=== PATIENT | female | born 1950 | race American Indian/Alaskan Native ===

== ENCOUNTER 2020-12-11 13:53 | Observation (INO) | payer MEDICARE ==
--- NOTE | 2020-12-11 14:42 | Emergency Department Report ---
HPI - General Chief Complaint: Weakness Time Seen by Provider: 12/11/20 14:18 - HPI HPI: Room 18 The patient is a 70-year-old female present with a chief complaint of missed hemodialysis. The patient has history end-stage renal disease and normally has dialysis every Wednesday. Patient states she has not gone to dialysis for 5 days. When asked why the patient does not answer. The patient complains of bilateral lower extremity pain for the past week but denies history of trauma. Patient admits to shortness of breath which began today. Patient states she was sent to the ED today to receive hemodialysis ED Past Medical Hx - Past Medical History Hx Hypertension: Yes Hx Diabetes: Yes Hx Renal Disease: Yes (ESRD, HD Q MWF) - Surgical History Hx Open Heart Surgery: Yes (CABG) Additional Surgical History: Nephrectomy. Left upper extremity fistula - Family History Family history: no significant - Social History Smoking Status: Never Smoker Substance Use Type: None ED Review of Systems ROS: Stated complaint: WEAKNESS Other details as noted in HPI Constitutional: weakness Eyes: denies: eye pain ENT: denies: throat pain Respiratory: shortness of breath Cardiovascular: denies: chest pain Endocrine: no symptoms reported Gastrointestinal: denies: abdominal pain Genitourinary: denies: abnormal menses Musculoskeletal: myalgia Neurological: denies: headache Physical Exam - Physical Exam Vital Signs: Vital Signs 12/11/20 14:09 Temperature 97.9 F Pulse Rate 76 Respiratory 14 Rate Blood Pressure 96/53 [Right] O2 Sat by Pulse 98 Oximetry Physical Exam: GENERAL: The patient is well-developed well-nourished female lying on stretcher not appearing to be in acute distress. [] HEENT: Normocephalic. Atraumatic. Extraocular motions are intact. Patient has moist mucous membranes. NECK: Supple. Trachea midline CHEST/LUNGS: Clear to auscultation. There is no respiratory distress noted. HEART/CARDIOVASCULAR: Regular. There is no tachycardia. There is no gallop rub or murmur. ABDOMEN: Abdomen is soft, nontender. Patient has normal bowel sounds. There is no abdominal distention. SKIN: There is no rash. There is trace bilateral lower extremity edema. There is no diaphoresis. NEURO: The patient is awake and oriented but at times appears slow to respond or does not answer questions. The patient is cooperative. The patient has no focal neurologic deficits. The patient has normal speech MUSCULOSKELETAL: \ There is no evidence of acute injury. ED Course Vital Signs 12/11/20 14:09 Temperature 97.9 F Pulse Rate 76 Respiratory 14 Rate Blood Pressure 96/53 [Right] O2 Sat by Pulse 98 Oximetry - Consultations Consultation #1: 12/11/20 16:54 Nephrology paged 12/11/20 17:[address] Turner-will enter dialysis orders ED Medical Decision Making - Lab Data Result diagrams: 12/11/20 15:42 12/11/20 15:42 Laboratory Tests 12/11/20 12/11/20 12/11/20 15:42 15:42 15:42 WBC 13.0 H RBC 2.68 L Hgb 8.3 L Hct 26.7 L MCV 100 H MCH 31 MCHC 31 RDW 23.0 H Plt Count 229 Lymph % (Auto) 10.0 L Wolfe % (Auto) 9.4 H Eos % (Auto) 1.1 Baso % (Auto) 1.0 Lymph # (Auto) 1.3 Wolfe # (Auto) 1.2 H Eos # (Auto) 0.1 Baso # (Auto) 0.1 Seg Neutrophils % 78.5 H Seg Neutrophils # 10.2 H Sodium 134 L Potassium 6.5 H* Chloride 95.5 L Carbon Dioxide 21 L Anion Gap 24 BUN 73 H Creatinine 8.7 H Estimated GFR 5 BUN/Creatinine Ratio 8 Glucose 155 H Calcium 8.6 TSH 5.190 H Free T4 1.07 - EKG Data -: EKG Interpreted by Me EKG shows normal: sinus rhythm - EKG Data When compared to previous EKG there are: previous EKG unavailable Interpretation: nonspecific ST-T wave gladys - Radiology Data Radiology results: report reviewed (Chest x-ray, bilateral lower extremity Dopplers), image reviewed (Chest x-ray, bilateral lower extremity Dopplers) interpreted by me: Chest x-ray-no focal infiltrates, no pneumothorax. [facility] [address] [place] [address] Vascular Lab Report Signed Patient: MARII MARQUEZ MR#: [id number] 6 : 1950 Acct:[id number] Age/Sex: 70 / F ADM Date: 12/11/20 Loc: ED Attending Dr: Ordering Physician: BIJU PEREIRA MD Date of Service: 12/11/20 Procedure(s): VL venous duplex LE BILAT Accession Number(s): [id number] cc: BIJU PEREIRA MD DUPLEX DOPPLER LOWER EXTREMITY VEINS, BILATERAL INDICATION: Pain. TECHNIQUE: Duplex doppler imaging was performed through the veins of both lower extremities using venous compression and other maneuvers. COMPARISON: No relevant prior imaging study available. FINDINGS: Right Common femoral vein: Negative. Right Superficial femoral vein: Negative. Right Popliteal vein: Negative. Right Calf veins: Negative. Left Common femoral vein: Negative. Left Superficial femoral vein: Negative. Left Popliteal vein: Negative. Left Calf veins: Negative. Additional findings: None. IMPRESSION: No sonographic evidence for DVT in either lower extremity. Signer Name: Heath Raymundo Jr, MD Signed: 12/11/2020 3:26 PM Workstation Name: [id number] Transcribed By: TTR Dictated By: HEATH RAYMUNDO JR, MD Electronically Authenticated By: HEATH RAYMUNDO JR, MD Signed Date/Time: 12/11/20 1526 DD/ 1525 TD/TT: Print Cancel [facility] [address] [place] [address] XRay Report Signed Patient: MARII MARQUEZ MR#: [id number] 6 : 1950 Acct:[id number] Age/Sex: 70 / F ADM Date: 12/11/20 Loc: ED Attending Dr: Ordering Physician: BIJU PEREIRA MD Date of Service: 12/11/20 Procedure(s): XR chest 1V ap Accession Number(s): [id number] cc: BIJU PEREIRA MD Fluoro Time In Minutes: CHEST 1 VIEW 12/11/2020 1:49 PM INDICATION / CLINICAL INFORMATION: Shortness of breath. COMPARISON: None available. FINDINGS: SUPPORT DEVICES: Left IJ central venous catheter appears appropriately positioned. HEART / MEDIASTINUM: Mild cardiomegaly. LUNGS / PLEURA: No significant pulmonary or pleural abnormality. No pneumothorax. ADDITIONAL FINDINGS: No significant additional findings. IMPRESSION: 1. Mild cardiomegaly without acute pulmonary abnormality. Signer Name: Beto Caballero MD Signed: 12/11/2020 2:51 PM Workstation Name: [id number] Transcribed By: JENIFER Dictated By: Beto Caballero MD Electr onically Authenticated By: Beto Caballero MD Signed Date/Time: 12/11/201450 DD/ 49 TD/TT: Print Cancel - Differential Diagnosis Hyperkalemia, uremia, volume overload, symptomatic anemia Critical care attestation.: If time is entered above; I have spent that time in minutes in the direct care of this critically ill patient, excluding procedure time. ED Disposition Clinical Impression: Hyperkalemia, ESRD (end stage renal disease) Disposition: OP ADMIT IP TO THIS HOSP Is pt being admited?: Yes Does the pt Need Aspirin: No Condition: Fair Time of Disposition: 17:25 (Hospitalist notified (Dr. Gonzalez))
--- NOTE | 2020-12-11 14:55 | XRay Report ---
CHEST 1 VIEW 12/11/2020 1:49 PM INDICATION / CLINICAL INFORMATION: Shortness of breath. COMPARISON: None available. FINDINGS: SUPPORT DEVICES: Left IJ central venous catheter appears appropriately positioned. HEART / MEDIASTINUM: Mild cardiomegaly. LUNGS / PLEURA: No significant pulmonary or pleural abnormality. No pneumothorax. ADDITIONAL FINDINGS: No significant additional findings. IMPRESSION: 1. Mild cardiomegaly without acute pulmonary abnormality. Signer Name: Beto Caballero MD Signed: 12/11/2020 2:51 PM Workstation Name: [id number]
--- NOTE | 2020-12-11 15:30 | Vascular Lab Report ---
DUPLEX DOPPLER LOWER EXTREMITY VEINS, BILATERAL INDICATION: Pain. TECHNIQUE: Duplex doppler imaging was performed through the veins of both lower extremities using ve nous compression and other maneuvers. COMPARISON: No relevant prior imaging study available. FINDINGS: Right Common femoral vein: Negative. Right Superficial femoral vein: Negative. Right Popliteal vein: Negative. Right Calf veins: Negative. Left Common femoral vein: Negative. Left Superficial femoral vein: Negative. Left Popliteal vein: Negative. Left Calf veins: Negative. Additional findings: None. IMPRESSION: No sonographic evidence for DVT in either lower extremity. Signer Name: Heath Raymundo Jr, MD Signed: 12/11/2020 3:26 PM Workstation Name: [id number]
[2020-12-11 16:14] LABS: Basophils # (Auto) 0.1 K/mm3 (0.0-0.1); Eosinophils # (Auto) 0.1 K/mm3 (0.0-0.4); Eosinophils % (Auto) 1.1 % (0.0-4.3); Hematocrit 26.7 % (30.3-42.9); Hemoglobin 8.3 gm/dl (10.1-14.3); Lymphocytes # (Auto) 1.3 K/mm3 (1.2-5.4); Mean Corpuscular HGB Conc 31 % (30-34); Mean Corpuscular Volume 100 fl (79-97); Monocytes # (Auto) 1.2 K/mm3 (0.0-0.8); Monocytes % (Auto) 9.4 % (0.0-7.3); Platelet Count 229 K/mm3 (140-440); Red Blood Count 2.68 M/mm3 (3.65-5.03)
[2020-12-11 16:21] LABS: Calcium 8.6 mg/dL (8.4-10.2)
[2020-12-11 16:35] LABS: Free T4 (Free Thyroxine) 1.07 ng/dL (0.76-1.46)
[2020-12-11] MEDS ORDERED: EPOETIN ALFA-EPBX 20,000 UNIT/1 ML VIAL SUB-Q PRN (17:42)
[2020-12-11] MEDS ORDERED: HEPARIN 10,000 UNITS/10 ML VIAL IV PRN (17:42)
[2020-12-11] MEDS ORDERED: CALCIUM GLUCONATE 1,000 MG in SODIUM CHLORIDE 0.9% 100 ML IV ONE (17:48)
[2020-12-11] MEDS ORDERED: DEXTROSE 50% IN WATER (25GM) 50 ML SYRINGE IV ONE (17:48)
[2020-12-11] MEDS ORDERED: INSULIN REGULAR, HUMAN 100 UNITS/1 ML IV ONE (17:48)
[2020-12-11] MEDS ORDERED: SODIUM BICARB 8.4% 50 MEQ/50 ML SYRINGE IV ONE (17:48)
[2020-12-11] MEDS ORDERED: SODIUM CHLORIDE 0.9% 100 ML IV PRN (18:42)
[2020-12-11 20:39] LABS: Hepatitis B Surface Antigen Non-Reactive (Negative); Hepatitis C Virus Antibody Non-Reactive (NonReactive)
--- NOTE | 2020-12-11 20:55 | Event Note ---
Date: 12/11/20 Patient with presented with missed HD and hyperkalemia. Need emergent/urgent hemodialysis due to above and I did d/w ER physician.
--- NOTE | 2020-12-11 21:24 | History and Physical Report ---
History of Present Illness Date of examination: 12/11/20 Date of admission: 12/11/20 17:22 Chief complaint: Generalized weakness History of present illness: 70-year-old female with a history of hypertension end-stage renal disease missed dialysis for the past 5 days. Patient complained of shortness of breath generalized malaise over the past 2 days. Patient presents to the ED needing hemodialysis. For acute renal failure. Work-up patient found to have hyperk alemia as well as BUN of 73 and creatinine of 8. Patient somewhat poor historian otherwise no acute distress. Patient denies pain. No shortness no nausea vomiting no abdominal pain only shortness of breath. Past History Past Medical History: anemia, arthritis, dialysis, hypertension, renal failure. denies: acute TN, atrial fib, arrhythmia, CAD, cancer, COPD, diabetes, heart failure, HIV/AIDS, hyperlipidemia, hypothyroidism, migraines, pulmonary embolis m, seizures Past Surgical History: CABG, Other (Nephrectomy) Social history: single, lives with family, full code. denies: smoking, alcohol abuse, prescription drug abuse Family history: no significant family history Medications and Allergies Allergies Allergy/AdvReac Type Severity Reaction Status Date / Time No Known Allergies Allergy Verified 12/11/20 17:11 Active Meds: Active Medications Heparin Sodium (Porcine) (Heparin 10,000 Units/10 Ml Vial) 3,000 unit IV ROSA M PRN PRN Reason: hemodialysis Sodium Chloride (Nacl 0.9%) 100 mls @ 999 mls/hr IV ROSA M PRN PRN Reason: Hypotension Review of Systems Constitutional: fatigue, weakness, malaise, poor appetite, no weight loss, no weight gain, no fever, no chills, no sweats, no anorexia, no lethargy, no chronic headaches, no daytime sleepiness, no chronic pain Ears, nose, mouth and throat: no ear discharge, no nasal congestion, no nasal discharge, no mouth pain, no hoarseness, no swelling in mouth, no post-nasal drip Cardiovascular: shortness of breath, dyspnea on exertion, decreased exercise t olerance, no chest pain, no orthopnea, no palpitations, no rapid/irregular heart beat, no edema, no syncope, no paroxysmal nocturnal dyspnea, no claudication, no high blood pressure Respiratory: cough, shortness of breath, dyspnea on exertion, no cough with sputum, no wheezing, no pain, no snoring, no other Gastrointestinal: no nausea, no diarrhea, no hematemesis, no melena, no early satiety, no heartburn, no jaundice, no lactose intolerance Musculoskeletal: muscle weakness, no neck pain, no arm numbness/tingling, no low back pain, no hot joints, no muscle cramps, no atrophy, no fractures, no prior amputations Integumentary: no pruritis, no darkening of skin, no dryness Neurological: weakness, no transient paralysis, no numbness, no migraines, no convulsions, no change in mentation, no loss of vision, no hearing difficulties Endocrine: no heat intolerance, no nocturia, no proptosis, no thyroid mass, no high blood sugars, no recent glucocorticoid use Hematologic/Lymphatic: no lymphedema Allergic/Immunologic: no anaphylaxis Exam - Constitutional Vitals: Temp Pulse Resp BP Pulse Ox 97.9 F 73 17 126/39 100 12/11/20 14:09 12/11/20 17:01 12/11/20 15:31 12/11/20 17:01 12/11/20 17:01 General appearance: Present: no acute distress, well-nourished - EENT Eyes: Present: PERRL ENT: hearing intact, clear oral mucosa - Neck Neck: Present: supple, normal ROM - Respiratory Respiratory effort: normal Respiratory: bilateral: CTA - Cardiovascular Heart Sounds: Present: S1 & S2. Absent: rub, click - Extremities Extremities: pulses symmetrical, No edema Peripheral Pulses: within normal limits - Abdominal General gastrointestinal: Present: soft, non-tender, non-distended, normal bowel sounds Female genitourinary: Present: normal - Integumentary Integumentary: Present: clear, warm, dry - Musculoskeletal Musculoskeletal: gait normal, strength equal bilaterally - Psychiatric Psychiatric: appropriate mood/affect, intact judgment & insight - Neurologic Neurologic: CNII-XII intact, moves all extremities Results - Labs CBC & Chem 7: 12/11/20 15:42 12/11/20 15:42 Labs: Laboratory Last Values WBC 13.0 K/mm3 (4.5-11.0) H 12/11/20 15:42 RBC 2.68 M/mm3 (3.65-5.03) L 12/11/20 15:42 Hgb 8.3 gm/dl (10.1-14.3) L 12/11/20 15:42 Hct 26.7 % (30.3-42.9) L 12/11/20 15:42 MCV 100 fl (79-97) H 12/11/20 15:42 MCH 31 pg (28-32) 12/11/20 15:42 MCHC 31 % (30-34) 12/11/20 15:42 RDW 23.0 % (13.2-15.2) H 12/11/20 15:42 Plt Count 229 K/mm3 (140-440) 12/11/20 15:42 Lymph % (Auto) 10.0 % (13.4-35.0) L 12/11/20 15:42 Irwin % (Auto) 9.4 % (0.0-7.3) H 12/11/20 15:42 Eos % (Auto) 1.1 % (0.0-4.3) 12/11/20 15:42 Baso % (Auto) 1.0 % (0.0-1.8) 12/11/20 15:42 Lymph # (Auto) 1.3 K/mm3 (1.2-5.4) 12/11/20 15:42 Irwin # (Auto) 1.2 K/mm3 (0.0-0.8) H 12/11/20 15:42 Eos # (Auto) 0.1 K/mm3 (0.0-0.4) 12/11/20 15:42 Baso # (Auto) 0.1 K/mm3 (0.0-0.1) 12/11/20 15:42 Seg Neutrophils % 78.5 % (40.0-70.0) H 12/11/20 15:42 Seg Neutrophils # 10.2 K/mm3 (1.8-7.7) H 12/11/20 15:42 Sodium 134 mmol/L (137-145) L 12/11/20 15:42 Potassium 6.5 mmol/L (3.6-5.0) H* 12/11/20 15:42 Chloride 95.5 mmol/L (98-107) L 12/11/20 15:42 Carbon Dioxide 21 mmol/L (22-30) L 12/11/20 15:42 Anion Gap 24 mmol/L 12/11/20 15:42 BUN 73 mg/dL (7-17) H 12/11/20 15:42 Creatinine 8.7 mg/dL (0.6-1.2) H 12/11/20 15:42 Estimated GFR 5 ml/min 12/11/20 15:42 BUN/Creatinine Ratio 8 % 12/11/20 15:42 Glucose 155 mg/dL (65-100) H 12/11/20 15:42 POC Glucose 163 mg/dL (70-105) H 12/11/20 19:12 Calcium 8.6 mg/dL (8.4-10.2) 12/11/20 15:42 TSH 5.190 mlU/mL (0.270-4.200) H 12/11/20 15:42 Free T4 1.07 ng/dL (0.76-1.46) 12/11/20 15:42 Hepatitis A IgM Ab Non-reactive (NonReactive) 12/11/20 15:42 Hep Bs Antigen Non-reactive (Negative) 12/11/20 15:42 Hep B Core IgM Ab Non-reactive (NonReactive) 12/11/20 15:42 Hepatitis C Antibody Non-reactive (NonReactive) 12/11/20 15:42 - Imaging and Cardiology EKG: report reviewed, image reviewed Chest x-ray: report reviewed, image reviewed Assessment and Plan Advance Directives: Yes VTE prophylaxis?: Chemical Plan of care discussed with patient/family: No - Patient Problems (1) ESRD (end stage renal disease) Current Visit: Yes Status: Acute Plan to address problem: Patient end-stage renal disease missed hemodialysis x5 days. Patient presents with symptoms pathopneumonic of renal failure including shortness of breath dyspnea on exertion generalized weakness and fatigue with minimal lethargy and confusion. Patient requires immediate hemodialysis today. Already is in dis cussion with nephrology for emergent dialysis. (2) Hyperkalemia Current Visit: Yes Status: Acute Plan to address problem: Patient has been treated with Kayexalate calcium gluconate insulin glucose for hyperkalemia and will benefit from emergent hemodialysis today.
[2020-12-11] MEDS ORDERED: ZOLPIDEM 5 MG TAB PO PRN (21:26)
[2020-12-11] MEDS ORDERED: ACETAMINOPHEN 325 MG TAB PO PRN (21:26)
[2020-12-11] MEDS ORDERED: ONDANSETRON 4 MG/2 ML INJ IV PRN (21:26)
[2020-12-11] MEDS ORDERED: oxyCODONE /ACETAMINOPHEN 5-325MG TAB PO PRN (21:26)
[2020-12-11] MEDS: FAMOTIDINE 20 MG/2 ML INJ IV SCH (22:47)
--- NOTE | 2020-12-12 09:17 | Consultation ---
History of Present Illness - Reason for Consult Consult date: 12/12/20 end stage renal disease, hyperkalemia - History of Present Illness The patient is a 70 YO female with history significant for Hypertension, Anemia, Arthritis, CAD s/p CABG and ESRD on hemodialysis (MWF) who presented to [facility] ED 12/11 with complains of shortness of breath and generalized malaise of 2 days duration. Patient is a very poor historian and there was no family member at the bedside. Per notes she missed dialysis for 5 days. On further workup patient was found to have a K of 6.5, BUN of 73 and creatinine of 8.7. Nephrology was consulted for further evaluation and treatment. Past History Past Medical History: anemia, arthritis, dialysis, hypertension Past Surgical History: CABG, Other (Nephrectomy) Social history: single, lives with family, full code. denies: smoking, alcohol abuse, prescription drug abuse Family history: no significant family history Medications and Allergies Allergies Allergy/AdvReac Type Severity Reaction Status Date / Time No Known Allergies Allergy Verified 12/11/20 17:11 Active Meds: Active Medications Acetaminophen (Acetaminophen 325 Mg Tab) 650 mg PO Q4H PRN PRN Reason: Pain MILD(1-3)/Fever >100.5/SANDHU Enoxaparin Sodium (Enoxaparin 30 Mg/0.3 Ml Inj) 30 mg SUB-Q QDAY [facility] Famotidine (Famotidine 20 Mg/2 Ml Inj) 10 mg IV BID [facility] Last Admin: 12/11/20 22:47 Dose: 10 mg Documented by: Heparin Sodium (Porcine) (Heparin 10,000 Units/10 Ml Vial) 3,000 unit IV ROSA M PRN PRN Reason: hemodialysis Sodium Chloride (Nacl 0.9%) 100 mls @ 999 mls/hr IV ROSA M PRN PRN Reason: Hypotension Ondansetron HCl (Ondansetron 4 Mg/2 Ml Inj) 4 mg IV Q8H PRN PRN Reason: Nausea And Vomiting Oxycodone/Acetaminophen (Oxycodone /Acetaminophen 5-325mg Tab) 1 tab PO Q6H PRN PRN Reason: Pain, Moderate (4-6) Sodium Chloride (Sodium Chloride 0.9% 10 Ml Flush Syringe) 10 ml IV BID [facility] Last Admin: 12/11/20 22:47 Dose: 10 ml Documented by: Sodium Chloride (Sodium Chloride 0.9% 10 Ml Flush Syringe) 10 ml IV PRN PRN PRN Reason: LINE FLUSH Zolpidem Tartrate (Zolpidem 5 Mg Tab) 5 mg PO QHS PRN PRN Reason: Insomnia Review of Systems ROS unobtainable: due to mental status (very poor historian) Constitutional: weakness, no weight loss, no weight gain Breasts: deferred Cardiovascular: high blood pressure, no chest pain, no orthopnea, no edema, no syncope, no lightheadedness, no shortness of breath Respiratory: no cough, no shortness of breath Gastrointestinal: no abdominal pain, no nausea, no vomiting, no diarrhea Exam - Vital Signs Vital signs: Vital Signs Pulse Pulse Ox 75 100 12/11/20 14:08 12/11/20 14:08 Results - Lab Results 12/12/20 11:38 12/12/20 11:38 Most recent lab results Calcium 8.6 mg/dL (8.4-10.2) 12/11/20 15:42 Assessment and Plan 1. ESRD: Patient is on maintenance hemodialysis three times a week, MWF schedule. Meds dosage based on GFR. Missed HD 12/10. Hemodialysis: 12/11. 2. FEN: Hyperkalemia, improved after HD 12/11. Monitor lytes and volume status. 3. Anemia, POA: 2/2 ESRD. Epogen with HD as needed. 4. H/o HTN: BP controlled. Subjective: Patient was seen and examined at the bedside. General Appearance: General appearance: well-developed, appears stated age, not in distress HEENT: ATNC, pupils equal Neck: trachea midline Respiratory: ctab Heart: regular, S1S2, no murmur Abdomen: soft, bowel sounds heard, not tender Integumentary: no rash, warm and dry Neurologic: alert, able to move extremities, some confusion noted Ext: no edema Hemodialysis access: L IJ tunnel catheter
[2020-12-12] MEDS: FAMOTIDINE 20 MG/2 ML INJ IV SCH (09:23)
--- NOTE | 2020-12-12 09:55 | Discharge Summary ---
Providers - Providers Date of Admission: 12/11/20 17:22 Date of discharge: 12/12/20 Attending physician: ZAC TOLENTINO 12/11/20 17:13 Consult to Physician [CONS] Stat Comment: Consulting Provider: VICTORIA VELAZQUEZ Physician Instructions: Reason For Exam: Hyperkalemia, needs dialysis 12/12/20 09:00 Consult to Wound/ET Nurse [CONS] Routine Reason For Exam: wound eval Primary care physician: TRANSPORTATION SERVICES REPRESENTATIVE Hospitalization Reason for admission: missed ESRD Condition: Fair Hospital course: 70-year-old female with a history of hypertension end-stage renal disease missed dialysis for the past 5 days. Patient complained of shortness of breath generalized malaise over the past 2 days. Patient presents to the ED needing hemodialysis. For acute renal failure. Work-up patient found to have hyperkalemia as well as BUN of 73 and creatinine of 8. The patient was admitted with diagnosis of ESRD with missed hemodialysis and severe hyperkalemia. Potassium was noted to be 6.5 on admission. The patient received emergent hemodialysis and if potassium has normalized will discharge home with follow-up on her normal Wednesday/Wednesday/Wednesday hemodialysis as an outpatient. Dedicated discharge time 32 minutes. Disposition: DC-01 TO HOME OR SELFCARE Final Discharge Diagnosis (Prints w/discharge instructions): ESRD with missed hemodialysis, hyperkalemia Core Measure Documentation - Palliative Care Palliative Care/ Comfort Measures: Not Applicable - Core Measures Any of the following diagnoses?: none Exam - Constitutional Vitals: Temp Pulse Resp BP Pulse Ox 98.3 F 68 20 129/41 100 12/12/20 08:31 12/12/20 08:31 12/12/20 08:31 12/12/20 08:31 12/12/20 08:31 General appearance: Present: no acute distress, well-nourished - EENT Eyes: Present: PERRL ENT: hearing intact, clear oral mucosa - Neck Neck: Present: supple, normal ROM - Respiratory Respiratory effort: normal Respiratory: bilateral: CTA - Cardiovascular Heart Sounds: Present: S1 & S2. Absent: rub, click - Extremities Extremities: pulses symmetrical, No edema Peripheral Pulses: within normal limits - Abdominal General gastrointestinal: Present: soft, non-tender, non-distended, normal bowel sounds Female genitourinary: Present: normal - Integumentary Integumentary: Present: clear, warm, dry - Musculoskeletal Musculoskeletal: gait normal, strength equal bilaterally - Psychiatric Psychiatric: appropriate mood/affect, intact judgment & insight - Neurologic Neurologic: CNII-XII intact, moves all extremities Plan Activity: advance as tolerated Weight Bearing Status: Weight Bear as Tolerated Diet: renal Follow up with: PRIMARY CAREMD [Primary Care Provider] - 7 Days VICTORIA VELAZQUEZ MD [Staff Physician] - 7 Days
[2020-12-12] MEDS ORDERED: ENOXAPARIN 30 MG/0.3 ML INJ SUB-Q SCH (10:00)
[2020-12-12 12:09] LABS: Basophils # (Auto) 0.1 K/mm3 (0.0-0.1); Basophils % (Auto) 1.3 % (0.0-1.8); Eosinophils # (Auto) 0.3 K/mm3 (0.0-0.4); Eosinophils % (Auto) 3.4 % (0.0-4.3); Hematocrit 26.3 % (30.3-42.9); Hemoglobin 8.2 gm/dl (10.1-14.3); Lymphocytes # (Auto) 1.4 K/mm3 (1.2-5.4); Lymphocytes % (Auto) 14.5 % (13.4-35.0); Mean Corpuscular HGB Conc 31 % (30-34); Mean Corpuscular Volume 96 fl (79-97); Monocytes % (Auto) 9.9 % (0.0-7.3); Platelet Count 241 K/mm3 (140-440); Red Blood Count 2.74 M/mm3 (3.65-5.03)
[2020-12-12 12:11] LABS: Red Cell Distribution Width 22.1 % (13.2-15.2)
[2020-12-12 12:24] LABS: Albumin 2.6 g/dL (3.9-5)
--- NOTE | 2020-12-12 12:32 | Electrocardiograph Report ---
[facility] Test Date: 2020-12-11 Test Time: 16:58:22 Pat Name: MARII MARQUEZ Department: Room: A452 1 Gender: F Tear Down Man: MARIA DE JESUS : 1950 Requested By: BIJU PEREIRA Order Number: [id number] Reading MD: Velvet Donaldson Measurements Intervals [place] Rate: 75 P: 33 MS: 159 QRS: -60 QRSD: 121 T: 137 QT: 431 QTc: 481 Interpretive Statements Sinus rhythm Left axis deviation Marked ST depression, consider acute lateral ischemia No previous ECG available for comparison Electronically Signed On 12-12-2020 12:32:17 EDT by Velvet Donaldson
[2020-12-12 17:26] VITALS: BP 109/35
== END 2020-12-12 18:54 | disposition home or self-care (01) ==
LOC: ED 13:53 → 4A 17:22
PROVIDERS: ADMIT Internal Medicine; ATTEND Hospitalist
DX: I12.0 Hypertensive chronic kidney disease with stage 5 chronic kidney disease or end stage renal disease (principal); N18.6 End stage renal disease; D63.1 Anemia in chronic kidney disease; E87.5 Hyperkalemia; M19.90 Unspecified osteoarthritis, unspecified site; Z99.2 Dependence on renal dialysis; Z79.899 Other long term (current) drug therapy; Z95.1 Presence of aortocoronary bypass graft; Z98.890 Other specified postprocedural states
CPT/HCPCS: 36415; 71045; 80048; 80053; 80074; 82962; 84439; 84443; 85025; 93005; 93970; 96365; 96372; 96375; 96376; 99285; G0257; G0378; J0610; J1650; 87641; J1815

== ENCOUNTER 2020-12-16 00:32 | Inpatient (IN) | payer MEDICARE ==
--- NOTE | 2020-12-16 00:37 | Emergency Department Report ---
HPI - General Time Seen by Provider: 12/16/20 00:34 - HPI HPI: Charge nurse triage/room 2 The patient is a 70-year-old female present with a chief complaint of altered mental status. The patient's daughter states that the patient awakened this morning at 08: 00 in her normal state of health. Transportation arrived at approximately 10-10:30 AM to take the patient to hemodialysis and the daughter states the patient was still in her normal state of health. The patient retur sriram from hemodialysis at approximately 15: 00 and the daughter states the patient was "slightly incoherent." The daughter feel that the patient was tired so the patient laid down to take a nap. The patient got up from her nap and at approximately 17: 00 was noted to be moaning and grunting. The daughter states the grunting increased later this evening and at 1 point the patient said "whoa whoa!" The daughter states the patient would not follow commands and still EMS was called. In the ED the patient appears confused and does not answer all questions posed to her. However the patient denies pain of any type and shortness of breath ED Past Medical Hx - Past Medical History Hx Hypertension: Yes Hx Diabetes: Yes Hx Renal Disease: Yes (ESRD, HD Q MWF) - Surgical History Hx Open Heart Surgery: Yes (CABG) Additional Surgical History: Nephrectomy. Left upper extremity fistula - Family History Family history: no significant - Social History Smoking Status: Never Smoker Substance Use Type: None - Medications Home Medications: Home Medications Medication Instructions Recorded Confirmed Last Taken Type Apixaban [Eliquis] 5 mg PO BID 12/16/20 12/16/20 Unknown History Aspirin [Adult Aspirin] 81 mg PO QDAY 12/16/20 12/16/20 Unknown History Escitalopram [Lexapro] 10 mg PO DAILY 12/16/20 12/16/20 Unknown History Gabapentin 300 mg PO QDAY 12/16/20 12/16/20 Unknown History Levemir Flextouch 12/16/20 Unknown History Midodrine [Proamatine] 15 mg PO TID 12/16/20 12/16/20 Unknown History NovoLOG Flexpen 12/16/20 Unknown History Pantoprazole [Protonix] 40 mg PO QDAY 12/16/20 12/16/20 Unknown History Vit B Comp No.3/Folic/C/Biotin 1 each PO 12/16/20 Unknown History [Nephro-Nola Rx Tablet] sevelamer HCL [Sevelamer HCl] 800 mg PO TID 12/16/20 12/16/20 Unknown History ED Review of Systems ROS: Stated complaint: POSS STROKE Other details as noted in HPI Comment: Unobtainable due to pts medical conditions Physical Exam - Physical Exam Physical Exam: GENERAL: The patient is well-developed well-nourished female lying on stretcher resting comfortably not appearing to be in acute distress. [] HEENT: Normocephalic. Atraumatic. Extraocular motions are intact. Patient has moist mucous membranes. NECK: Supple. Trachea midline CHEST/LUNGS: Clear to auscultation. There is no respiratory distress noted. HEART/CARDIOVASCULAR: Regular. There is no tachycardia. There is no gallop rub or murmur. ABDOMEN: Abdomen is soft, nontender. Patient has normal bowel sounds. There is no abdominal distention. SKIN: There is no rash. There is no edema. There is no diaphoresis. NEURO: The patient is asleep but awakens to verbal stimuli. Patient is disoriented and believes she is at hemodialysis. When asked the year the patient is not able to answer correctly. The patient has no focal neurologic deficits. The patient has normal speech MUSCULOSKELETAL: There is no evidence of acute injury. ED Medical Decision Making - Lab Data Result diagrams: 12/16/20 00:57 12/16/20 00:57 - Radiology Data Radiology results: report reviewed (CT head, chest x-ray), image reviewed (CT head, chest x-ray) interpreted by me: Chest x-ray-right lower lobe atelectasis. No pneumothorax. [facility] [address] [place] [address] Cat Scan Report Signed Patient: MARII MARQUEZ MR#: [id number] 6 : 1950 Acc t:[id number] Age/Sex: 70 / F ADM Date: 12/16/20 Loc: ED Attending Dr: Ordering Physician: BIJU PEREIRA MD Date of Service: 12/16/20 Procedure(s): CT head/brain wo con Accession Number(s): [id number] cc: BIJU PEREIRA MD CT HEAD WITHOUT CONTRAST INDICATION : Altered mental status. TECHNIQUE: Axial, coronal and sagittal CT imaging was performed from the skull apex through the skull base without contrast. All CT scans at this location are performed using CT dose reduction for ALARA by means of automated exposure control. COMPARISON: None available. FINDINGS: PARENCHYMA: No mass, midline shift, hemorrhage, extraaxial collection or acute territorial infarction. There is generalized atrophy with extensive probable chronic microvascular ischemic changes along the periventricular white matter. VENTRICLES: Enlarged secondary to atrophy. No acute abnormality. SOFT TISSUES: No significant abnormality of the included soft tissues/orbits. BONES: No acute osseous abnormality. SINUSES: No significant a bnormality. ADDITIONAL FINDINGS: There is severe generalized atherosclerosis. IMPRESSION: 1. No acute intracranial abnormality. 2. Additional findings as above. Signer Name: Juan Alberto Luna MD Signed: 12/16/2020 1:10 AM Workstation Name: [id number] Transcribed By: [place] Dictated By: Juan Alberto Luna MD Electronically Authenticated By: Juan Alberto Luna MD Signed Date/Time: 12/16/20 0110 DD/ 010 TD/TT: Print Cancel [facility] [address] [place] [address] XRay Report Signed Patient: MARII MARQUEZ MR#: [id number] 6 : 1950 Acct:[id number] Age/Sex: 70 / F ADM Date: 12/16/20 Loc: ED Attending Dr: Ordering Physician: BIJU PEREIRA MD Date of Service: 12/16/20 Procedure(s): XR chest 1V ap Accession Number(s): [id number] cc: BIJU PEREIRA MD Fluoro Time In Minutes: CHEST 1 VIEW 12/16/2020 1:59 AM INDICATION / CLINICAL INFORMATION: Altered mental status. COMPARISON: One view of the chest from 12/11/2020 FINDINGS : SUPPORT DEVICES: Unchanged left internal jugular vein PermCath. HEART / MEDIASTINUM: Stable. LUNGS / PLEURA: Reduced lung volumes are seen with generalized bilateral pulmonary opacities. No significant pleural effusion. No pneumothorax. ADDITIONAL FINDINGS: The bones are unchanged. IMPRESSION: 1. Reduced lung volumes with probable bilateral atelectasis/edema. 2. No other significant interval changes. Signer Name: Juan Alberto Luna MD Signed: 12/16/2020 2:38 AM Workstation Name: [id number] Transcribed By: MN Dictated By: Juan Alberto Luna MD Electronically Authenticated By: Juan Alberto Luna MD Signed Date/Time: 12/16/20237 DD/ 6 TD/TT: Print Cancel - Differential Diagnosis Altered mental status, UTI, ICH, dehydration, electrolyte abnormality, Critical care attestation.: If time is entered above; I have spent that time in minutes in the direct care of this critically ill patient, excluding procedure time. ED Disposition Clinical Impression: Altered mental status Disposition: DC-09 OP ADMIT IP TO THIS HOSP Is pt being admited?: Yes Does the pt Need Aspirin: Yes Condition: Fair Time of Disposition: 03:06 (Hospitalist paged (Dr Hubbard))
--- NOTE | 2020-12-16 01:15 | Cat Scan Report ---
CT HEAD WITHOUT CONTRAST INDICATION : Altered mental status. TECHNIQUE: Axial, coronal and sagittal CT imaging was performed from the skull apex through the skul l base without contrast. All CT scans at this location are performed using CT dose reduction for ALA RA by means of automated exposure control. COMPARISON: None available. FINDINGS: PARENCHYMA: No mass, midline shift, hemorrhage, extraaxial collection or acute territorial infarctio n. There is generalized atrophy with extensive probable chronic microvascular ischemic changes along the periventricular white matter. VENTRICLES: Enlarged secondary to atrophy. No acute abnormality. SOFT TISSUES: No significant abnormality of the included soft tissues/orbits. BONES: No acute osseous abnormality. SINUSES: No significant abnormality. ADDITIONAL FINDINGS: There is severe generalized atherosclerosis. IMPRESSION: 1. No acute intracranial abnormality. 2. Additional findings as above. Signer Name: Juan Alberot Luna MD Signed: 12/16/2020 1:10 AM Workstation Name: [id number]
[2020-12-16 01:21] LABS: Basophils # (Auto) 0.1 K/mm3 (0.0-0.1); Basophils % (Auto) 0.7 % (0.0-1.8); Eosinophils % (Auto) 0.1 % (0.0-4.3); Hematocrit 31.3 % (30.3-42.9); Hemoglobin 9.4 gm/dl (10.1-14.3); Lymphocytes # (Auto) 1.5 K/mm3 (1.2-5.4); Mean Corpuscular HGB Conc 30 % (30-34); Mean Corpuscular Volume 100 fl (79-97); Monocytes # (Auto) 1.4 K/mm3 (0.0-0.8); Monocytes % (Auto) 7.8 % (0.0-7.3); Platelet Count 195 K/mm3 (140-440); Red Blood Count 3.13 M/mm3 (3.65-5.03)
[2020-12-16 01:34] LABS: Red Cell Distribution Width 22.7 % (13.2-15.2)
[2020-12-16 01:39] LABS: Albumin 3.2 g/dL (3.9-5); Calcium 9.3 mg/dL (8.4-10.2); Creatine Kinase MB 5.1 ng/mL (0.0-4.0)
[2020-12-16 01:40] LABS: INR 2.8 (0.87-1.13); Partial Thromboplastin Time 39.9 Sec. (24.2-36.6); Thrombin Time 16.9 Sec. (15.1-19.6)
[2020-12-16 01:49] LABS: Free T4 (Free Thyroxine) 1.54 ng/dL (0.76-1.46)
[2020-12-16 01:59] LABS: Chol/HDL Ratio 1.71 %
--- NOTE | 2020-12-16 02:42 | XRay Report ---
CHEST 1 VIEW 12/16/2020 1:59 AM INDICATION / CLINICAL INFORMATION: Altered mental status. COMPARISON: One view of the chest from 12/11/2020 FINDINGS: SUPPORT DEVICES: Unchanged left internal jugular vein PermCath. HEART / MEDIASTINUM: Stable. LUNGS / PLEURA: Reduced lung volumes are seen with generalized bilateral pulmonary opacities. No sign ificant pleural effusion. No pneumothorax. ADDITIONAL FINDINGS: The bones are unchanged. IMPRESSION: 1. Reduced lung volumes with probable bilateral atelectasis/edema. 2. No other significant interval changes. Signer Name: Juan Alberto Luna MD Signed: 12/16/2020 2:38 AM Workstation Name: [id number]
[2020-12-16] MEDS ORDERED: cefTRIAXone/NS 1 GM/50 ML 1 GM/50 ML BAG IV ONE (03:05)
[2020-12-16] MEDS ORDERED: ASPIRIN 325 MG TAB PO ONE (03:06)
[2020-12-16] MEDS ORDERED: IBUPROFEN 600 MG TAB PO PRN (03:40)
[2020-12-16] MEDS ORDERED: ONDANSETRON 4 MG/2 ML INJ IV PRN (03:40)
[2020-12-16] MEDS ORDERED: MAGNESIUM HYDROXIDE (MOM) ORAL LIQD UDC PO PRN (03:40)
[2020-12-16] MEDS ORDERED: DEXTROSE 50% IN WATER (25GM) 50 ML SYRINGE IV PRN (03:40)
[2020-12-16] MEDS ORDERED: MORPHINE 2 MG/1 ML INJ IV PRN (03:40)
[2020-12-16] MEDS ORDERED: MORPHINE 4 MG/1 ML INJ IV PRN (03:40)
--- NOTE | 2020-12-16 03:57 | History and Physical Report ---
History of Present Illness Date of examination: 12/16/20 Date of admission: 12/16/2020 Chief complaint: Altered Mental Status History of present illness: 70-year-old female with known history of hypertension, diabetes mellitus and end-stage renal disease on dialysis brought into the emergency room today with a complaint of altered mental status. Patient was said to have felt weak and became incoherent after dialysis yesterday. She was said to be moaning and eryn aning and became less responsive and EMS was then called. According to EMS patient will not answer questions and was not following commands. Patient has become more coherent and more responsive upon arrival in the emergency room. She was able to answer most questions but intermittently feels drowsy. Patient was recently seen here in this hospital about a week ago having been admitted with end-stage renal disease with hyperkalemia during which she had emergent dialysis. She was said to have missed her dialysis at the time. There has been no history of fever or chills, no chest pain, no cough or shortness of breath, no nausea vomiting, no abdominal pain, no diarrhea, no headache or dizziness and no diaphoresis. Patient denies any sick contacts and no recent travel. She has had a COVID-19 vaccination. Work-up in the emergency room today was significant for leukocytosis of 18.2 elevated INR of 2.8, hyperkalemia of 5.4, BUN and creatinine of 34 and 5.6 respectively, lactic acid of 6.6, elevated liver enzymes with AST 2838 and ALT 1353. Troponin was elevated at 0.72 Chest x-ray shows reduced lung volumes with probable bilateral atelectasis/edema. CT scan of the head shows no acute findings. EKG showed no acute findings. Patient has been admitted with altered mental status, hyperkalemia, lactic acidosis, elevated liver enzymes and elevated troponin. Past History Past Medical History: diabetes, dialysis, ESRD, hypertension Past Surgical History: Other (Left arm AV fistula, Left chest Vas Cath.) Social history: no significant social history Family history: no significant family history Medications and Allergies Allergies Allergy/AdvReac Type Severity Reaction Status Date / Time No Known Allergies Allergy Verified 12/11/20 17:11 Home Medications Medication Instructions Recorded Confirmed Last Taken Type Apixaban [Eliquis] 5 mg PO BID 12/16/20 12/16/20 Unknown History Aspirin [Adult Aspirin] 81 mg PO QDAY 12/16/20 12/16/20 Unknown History Escitalopram [Lexapro] 10 mg PO DAILY 12/16/20 12/16/20 Unknown History Gabapentin 300 mg PO QDAY 12/16/20 12/16/20 Unknown History Levemir Flextouch 12/16/20 Unknown History Midodrine [Proamatine] 15 mg PO TID 12/16/20 12/16/20 Unknown History NovoLOG Flexpen 12/16/20 Unknown History Pantoprazole [Protonix] 40 mg PO QDAY 12/16/20 12/16/20 Unknown History Vit B Comp No.3/Folic/C/Biotin 1 each PO 12/16/20 Unknown History [Nephro-Nola Rx Tablet] sevelamer HCL [Sevelamer HCl] 800 mg PO TID 12/16/20 12/16/20 Unknown History Active Meds: Active Medications Dextrose (Dextrose 50% In Water (25gm) 50 Ml Syringe) 50 ml IV Q30MIN PRN; Protocol PRN Reason: Hypoglycemia Heparin Sodium (Porcine) (Heparin 5,000 Unit/1 Ml Vial) 5,000 unit SUB-Q Q8HR JEET Vancomycin HCl 1,250 mg/ (Sodium Chloride) 525 mls @ 333 mls/hr IV ONCE ONE; Protocol Stop: 12/16/20 05:14 Sodium Chloride (Nacl 0.9% 1000 Ml) 1,000 mls @ 75 mls/hr IV DIRECT JEET Cefepime HCl (Cefepime/Ns 2 Gm/100 Ml) 2 gm in 100 mls @ 200 mls/hr IV Q8H JEET; Protocol Ibuprofen (Ibuprofen 600 Mg Tab) 600 mg PO Q6H PRN PRN Reason: Pain, Mild (1-3) Insulin Human Regular (Insulin Regular, Human 100 Units/1 Ml) 0 units SUB-Q ACHS JEET; Protocol Magnesium Hydroxide (Magnesium Hydroxide (Mom) Oral Liqd Udc) 30 ml PO Q4H PRN PRN Reason: Constipation Morphine Sulfate (Morphine 2 Mg/1 Ml Inj) 2 mg IV Q4H PRN PRN Reason: Pain, Moderate (4-6) Morphine Sulfate (Morphine 4 Mg/1 Ml Inj) 4 mg IV Q4H PRN PRN Reason: Pain , Severe (7-10) Ondansetron HCl (Ondansetron 4 Mg/2 Ml Inj) 4 mg IV Q8H PRN PRN Reason: Nausea And Vomiting Sodium Chloride (Sodium Chloride 0.9% 10 Ml Flush Syringe) 10 ml IV BID JEET Sodium Chloride (Sodium Chloride 0.9% 10 Ml Flush Syringe) 10 ml IV PRN PRN PRN Reason: LINE FLUSH Sodium Polystyrene Sulfonate (Sodium Polystyrene 15 Gm/60 Ml Oral Liqd) 15 gm PO ONCE ONE Stop: 12/16/20 03:53 Review of Systems Constitutional: no fever, no chills Ears, nose, mouth and throat: no nasal congestion, no sore throat Cardiovascular: no chest pain, no palpitations Respiratory: no cough, no shortness of breath Gastrointestinal: no nausea, no vomiting, no diarrhea Musculoskeletal: no neck pain, no low back pain Integumentary: no rash, no pruritis Neurological: confusion, no headaches Psychiatric: no anxiety, no depression Endocrine: no polyphagia, no polydipsia, no polyuria, no nocturia Exam - Constitutional Vitals: Temp Pulse Resp BP Pulse Ox 98.3 F 84 19 102/28 98 12/16/20 01:03 12/16/20 03:00 12/16/20 03:00 12/16/20 03:00 12/16/20 03:00 General appearance: Present: no acute distress, well-nourished - EENT Eyes: Present: PERRL, EOM intact. Absent: scleral icterus ENT: hearing intact, clear oral mucosa, dentition normal - Neck Neck: Present: supple, normal ROM - Respiratory Respiratory effort: normal Respiratory: bilateral: diminished - Cardiovascular Rhythm: regular Heart Sounds: Present: S1 & S2. Absent: gallop, systolic murmur, diastolic murmur, rub, click - Extremities Extremities: no ischemia, No edema, normal color (Hyperpigmentation of skin on lower extremities), Full ROM Extremity abnormal: ulceration (healing ulcers on medical aspects of both legs. Left heaal decubitus with eschar), black (left Foot 2nd toe.), pulses diminished - Abdominal General gastrointestinal: Present: soft, non-tender, non-distended, normal bowel sounds. Absent: mass - Integumentary Integumentary: Present: clear, warm, dry - Musculoskeletal Musculoskeletal: strength equal bilaterally - Psychiatric Psychiatric: appropriate mood/affect, intact judgment & insight, memory intact, cooperative - Neurologic Neurologic: CNII-XII intact, no focal deficits, moves all extremities HEART Score - HEART Score Troponin: Troponin T 0.720 ng/mL (0.00-0.029) H* 12/16/20 00:57 Results - Labs CBC & Chem 7: 12/16/20 00:57 12/16/20 00:57 Labs: Abnormal lab results 12/16/20 12/16/20 12/16/20 Range/Units 00:38 00:57 00:57 WBC 18.2 H (4.5-11.0) K/mm3 RBC 3.13 L (3.65-5.03) M/mm3 Hgb 9.4 L (10.1-14.3) gm/dl MCV 100 H (79-97) fl RDW 22.7 H (13.2-15.2) % Lymph % (Auto) 8.0 L (13.4-35.0) % [place] % (Auto) 7.8 H (0.0-7.3) % [place] # (Auto) 1.4 H (0.0-0.8) K/mm3 Seg Neutrophils % 83.4 H (40.0-70.0) % Seg Neutrophils # 15.2 H (1.8-7.7) K/mm3 PT 29.9 H (12.2-14.9) Sec. INR 2.80 H (0.87-1.13) APTT 39.9 H (24.2-36.6) Sec. Sodium (137-145) mmol/L Potassium (3.6-5.0) mmol/L Chloride (98-107) mmol/L Carbon Dioxide (22-30) mmol/L BUN (7-17) mg/dL Creatinine (0.6-1.2) mg/dL Glucose (65-100) mg/dL POC Glucose 116 H (70-105) mg/dL Lactic Acid (0.7-2.0) mmol/L Total Bilirubin (0.1-1.2) mg/dL AST (5-40) units/L ALT (7-56) units/L Alkaline Phosphatase (35-129) units/L CK-MB (CK-2) (0.0-4.0) ng/mL CK-MB (CK-2) Rel Index (0-4) Troponin T (0.00-0.029) ng/mL Albumin (3.9-5) g/dL LDL Cholesterol Direct (50-130) mg/dL HDL Cholesterol (40-59) mg/dL TSH (0.270-4.200) mlU/mL Free T4 (0.76-1.46) ng/dL 12/16/20 12/16/20 12/16/20 Range/Units 00:57 00:57 00:57 WBC (4.5-11.0) K/mm3 RBC (3.65-5.03) M/mm3 Hgb (10.1-14.3) gm/dl MCV (79-97) fl RDW (13.2-15.2) % Lymph % (Auto) (13.4-35.0) % [place] % (Auto) (0.0-7.3) % [place] # (Auto) (0.0-0.8) K/mm3 Seg Neutrophils % (40.0-70.0) % Seg Neutrophils # (1.8-7.7) K/mm3 PT (12.2-14.9) Sec. INR (0.87-1.13) APTT (24.2-36.6) Sec. Sodium 136 L (137-145) mmol/L Potassium 5.4 H (3.6-5.0) mmol/L Chloride 94.2 L (98-107) mmol/L Carbon Dioxide 18 L D (22-30) mmol/L BUN 34 H (7-17) mg/dL Creatinine 5.6 H (0.6-1.2) mg/dL Glucose 108 H (65-100) mg/dL POC Glucose (70-105) mg/dL Lactic Acid 8.10 H* (0.7-2.0) mmol/L Total Bilirubin 1.30 H (0.1-1.2) mg/dL AST 2838 H (5-40) units/L ALT 1353 H (7-56) units/L Alkaline Phosphatase 186 H (35-129) units/L CK-MB (CK-2) 5.1 H (0.0-4.0) ng/mL CK-MB (CK-2) Rel Index 6.0 H (0-4) Troponin T 0.720 H* (0.00-0.029) ng/mL Albumin 3.2 L (3.9-5) g/dL LDL Cholesterol Direct 34 L (50-130) mg/dL HDL Cholesterol 64 H (40-59) mg/dL TSH 6.720 H (0.270-4.200) mlU/mL Free T4 1.54 H (0.76-1.46) ng/dL 12/16/20 Range/Units 01:45 WBC (4.5-11.0) K/mm3 RBC (3.65-5.03) M/mm3 Hgb (10.1-14.3) gm/dl MCV (79-97) fl RDW (13.2-15.2) % Lymph % (Auto) (13.4-35.0) % [place] % (Auto) (0.0-7.3) % [place] # (Auto) (0.0-0.8) K/mm3 Seg Neutrophils % (40.0-70.0) % Seg Neutrophils # (1.8-7.7) K/mm3 PT (12.2-14.9) Sec. INR (0.87-1.13) APTT (24.2-36.6) Sec. Sodium (137-145) mmol/L Potassium (3.6-5.0) mmol/L Chloride (98-107) mmol/L Carbon Dioxide (22-30) mmol/L BUN (7-17) mg/dL Creatinine (0.6-1.2) mg/dL Glucose (65-100) mg/dL POC Glucose (70-105) mg/dL Lactic Acid 6.60 H* (0.7-2.0) mmol/L Total Bilirubin (0.1-1.2) mg/dL AST (5-40) units/L ALT (7-56) units/L Alkaline Phosphatase (35-129) units/L CK-MB (CK-2) (0.0-4.0) ng/mL CK-MB (CK-2) Rel Index (0-4) Troponin T (0.00-0.029) ng/mL Albumin (3.9-5) g/dL LDL Cholesterol Direct (50-130) mg/dL HDL Cholesterol (40-59) mg/dL TSH (0.270-4.200) mlU/mL Free T4 (0.76-1.46) ng/dL Assessment and Plan - Patient Problems (1) Altered mental status Current Visit: Yes Status: Acute Plan to address problem: Possibly secondary to multiple underlying problems including possible sepsis, end-stage renal disease with hyperkalemia and elevated liver enzymes. Will monitor mental status. (2) ESRD (end stage renal disease) Current Visit: No Status: Acute Plan to address problem: We will place consult to nephrology for evaluation. (3) Hyperkalemia Current Visit: No Status: Acute Plan to address problem: Possibly secondary to the end-stage renal disease. Patient will be given Kayexalate, insulin/glucose, sodium bicarb and will monitor potassium levels. (4) Elevated liver enzymes Current Visit: Yes Status: Acute Plan to address problem: Etiology is unclear. We will request gastroenterology evaluation. We will also check hepatitis profile. (5) Elevated troponin Current Visit: Yes Status: Acute Plan to address problem: Possibly secondary to the underlying end-stage renal disease versus sepsis. However we trend cardiac enzymes and request cardiology evaluation and recommendations. (6) Diabetes mellitus Current Visit: Yes Status: Acute Plan to address problem: Patient placed on sliding scale insulin. We will monitor Accu-Cheks closely. (7) DVT prophylaxis Current Visit: Yes Status: Acute Plan to address problem: Patient currently on anticoagulation with Eliquis. (8) Full code status Current Visit: Yes Status: Acute Plan to address problem: Patient is full code.
[2020-12-16] MEDS ORDERED: VANCOMYCIN PHARMACY TO DOSE IV SCH (04:00)
[2020-12-16] MEDS ORDERED: VANCOMYCIN 1,250 MG in SODIUM CHLORIDE 0.9% 250ML 250 ML IV ONE (04:30)
[2020-12-16] MEDS ORDERED: SODIUM POLYSTYRENE 15 GM/60 ML ORAL LIQD PO ONE (04:32)
[2020-12-16 04:38] LABS: Hepatitis B Surface Antigen Non-Reactive (Negative); Hepatitis C Virus Antibody Non-Reactive (NonReactive)
[2020-12-16] MEDS: SODIUM CHLORIDE 0.9% 1000 ML 1,000 ML IV SCH (05:15)
[2020-12-16] MEDS ORDERED: HEPARIN 5,000 UNIT/1 ML VIAL SUB-Q SCH (06:00)
[2020-12-16] MEDS ORDERED: SODIUM BICARB 8.4% 50 MEQ/50 ML SYRINGE IV ONE (06:25)
[2020-12-16] MEDS: INSULIN REGULAR, HUMAN 100 UNITS/1 ML SUB-Q SCH ×4 (08:08→22:24)
[2020-12-16] MEDS ORDERED: SODIUM CHLORIDE 0.9% 100 ML IV PRN (08:09)
--- NOTE | 2020-12-16 08:09 | Consultation ---
History of Present Illness - Reason for Consult Consult date: 12/16/20 end stage renal disease, hyperkalemia - History of Present Illness The patient is a 70 YO female with history significant for Hypertension, Anemia, Arthritis, CAD s/p CABG and ESRD on hemodialysis (MWF) who presented to [facility] ED 12/16 with altered mental status. Patient was not able to provide any history and there was no family member at the bedside. She was said to be moaning and groaning and became less responsive and EMS was called. According to EMS patient will not answer questions and was not following commands. Patient was recently seen here in this hospital about a week ago with hyperkalemia during which she had emergent dialysis. No h/o sick contacts and no recent travel. She has had a COVID-19 vaccination. Work-up in the emergency room showed wbc 18.2, INR of 2.8, K 5.4, BUN 34, creatinine 5.6, Lactic acid of 6.6, elevated liver enzymes with AST 2838 and ALT 1353 and Troponin 0.72. Chest x-ray showed reduced lung volumes with probable bilateral atelectasis/edema. CT scan of the head showed no acute findings. Patient has been admitted with altered mental status, hyperkalemia, lactic acidosis, elevated liver enzymes and elevated troponin. Nephrology was consulted for further evaluation and treatment. Past History Past Medical History: diabetes, dialysis, ESRD, hypertension Past Surgical History: Other (Left arm AV fistula, Left chest Vas Cath.) Social history: no significant social history Family history: no significant family history Medications and Allergies Allergies Allergy/AdvReac Type Severity Reaction Status Date / Time No Known Allergies Allergy Verified 12/11/20 17:11 Home Medications Medication Instructions Recorded Confirmed Last Taken Type Apixaban [Eliquis] 5 mg PO BID 12/16/20 12/16/20 Unknown History Aspirin [Adult Aspirin] 81 mg PO QDAY 12/16/20 12/16/20 Unknown History Escitalopram [Lexapro] 10 mg PO DAILY 12/16/20 12/16/20 Unknown History Gabapentin 300 mg PO QDAY 12/16/20 12/16/20 Unknown History Levemir Flextouch 12/16/20 Unknown History Midodrine [Proamatine] 15 mg PO TID 12/16/20 12/16/20 Unknown History NovoLOG Flexpen 12/16/20 Unknown History Pantoprazole [Protonix] 40 mg PO QDAY 12/16/20 12/16/20 Unknown History Vit B Comp No.3/Folic/C/Biotin 1 each PO 12/16/20 Unknown History [Nephro-Nola Rx Tablet] sevelamer HCL [Sevelamer HCl] 800 mg PO TID 12/16/20 12/16/20 Unknown History Active Meds: Active Medications Dextrose (Dextrose 50% In Water (25gm) 50 Ml Syringe) 0 ml IV Q30MIN PRN; Protocol PRN Reason: Hypoglycemia Sodium Chloride (Nacl 0.9% 1000 Ml) 1,000 mls @ 75 mls/hr IV DIRECT JEET Last Admin: 12/16/20 05:15 Dose: 75 mls/hr Documented by: Cefepime HCl (Cefepime/Ns 2 Gm/100 Ml) 2 gm in 100 mls @ 200 mls/hr IV Q24HR JEET; Protocol Ibuprofen (Ibuprofen 600 Mg Tab) 600 mg PO Q6H PRN PRN Reason: Pain, Mild (1-3) Insulin Human Regular (Insulin Regular, Human 100 Units/1 Ml) 0 units SUB-Q ACHS JEET; Protocol Last Admin: 12/16/20 08:08 Dose: Not Given Documented by: Magnesium Hydroxide (Magnesium Hydroxide (Mom) Oral Liqd Udc) 30 ml PO Q4H PRN PRN Reason: Constipation Morphine Sulfate (Morphine 2 Mg/1 Ml Inj) 2 mg IV Q4H PRN PRN Reason: Pain, Moderate (4-6) Morphine Sulfate (Morphine 4 Mg/1 Ml Inj) 4 mg IV Q4H PRN PRN Reason: Pain , Severe (7-10) Ondansetron HCl (Ondansetron 4 Mg/2 Ml Inj) 4 mg IV Q8H PRN PRN Reason: Nausea And Vomiting Sodium Chloride (Sodium Chloride 0.9% 10 Ml Flush Syringe) 10 ml IV BID JEET Sodium Chloride (Sodium Chloride 0.9% 10 Ml Flush Syringe) 10 ml IV PRN PRN PRN Reason: LINE FLUSH Review of Systems ROS unobtainable: due to mental status Exam - Vital Signs Vital signs: Vital Signs Temp Pulse Resp BP Pulse Ox 98.3 F 97 H 23 125/55 98 12/16/20 01:03 12/16/20 01:03 12/16/20 01:03 12/16/20 01:03 12/16/20 01:03 Results - Lab Results 12/16/20 00:57 12/16/20 00:57 Most recent lab results Calcium 9.3 mg/dL (8.4-10.2) 12/16/20 00:57 Assessment and Plan 1. ESRD: Patient is on maintenance hemodialysis three times a week, MWF schedule. Meds dosage based on GFR. HD today. 2. FEN: Hyperkalemia, HD today. Anion-gap metabolic acidosis, 2/2 Lactic acidosis, monitor. Monitor lytes and volume status. 3. Anemia, POA: 2/2 ESRD. Epogen with HD as needed. 4. Acute metabolic encephalopathy, POA: CT head negative. Monitor. 5. Sepsis, POA: Abx. Follow cultures. 6. Elevated Troponin: Cards consulted. 7. H/o HTN: BP is on the lowside. Monitor BP. 8. Elevated ALT / AST: GI consulted. Subjective: Patient was seen and examined at the bedside. General Appearance: General appearance: well-developed, appears stated age, not in distress HEENT: ATNC, pupils equal Neck: trachea midline Respiratory: ctab Heart: regular, S1S2, no murmur Abdomen: soft, bowel sounds heard, not tender Integumentary: no rash, warm and dry Neurologic: lethargic, not following any command, not conversing Ext: no edema Hemodialysis access: L IJ tunnel catheter
--- NOTE | 2020-12-16 08:43 | Event Note ---
Date: 12/16/20 This is a follow-up from an admission earlier this morning. Patient seen and examined. We will continue to plan as outlined in H&P. Total visit time equals 35 minutes with greater than 50% spent on coordination of care and counseling.
[2020-12-16] MEDS: CEFEPIME/NS 2 GM/100 ML 2 GM/100 ML BAG IV SCH (09:32)
--- NOTE | 2020-12-16 09:44 | Ultrasound Report ---
LIMITED RUQ ABDOMINAL ULTRASOUND INDICATION: Elevated liver enzymes. COMPARISON: None. FINDINGS: Pancreas: Visualized portions show no significant abnormality. Abdominal Aorta: No significant abnormality. IVC: No significant abnormality. Liver: The liver measures 16.3 cm in length. No significant abnormality. Portal vein is patent.. Gallbladder: The gallbladder is contracted but no obvious gallstones.. Bile ducts: No significant abnormality. Common bile duct measures 3.6 mm. Right kidney: The right kidney appears mildly atrophic measuring 7-8 cm in length. No hydronephrosis. . Free fluid: None. Additional Findings: None. IMPRESSION: No acute abnormality is appreciated. Contracted gallbladder but no evidence for gallstones. Mild atrophy of the right kidney is suspected.. Signer Name: Heath Raymundo Jr, MD Signed: 12/16/2020 9:39 AM Workstation Name: [id number]
--- NOTE | 2020-12-16 10:38 | Electrocardiograph Report ---
[facility] Test Date: 2020-12-16 Test Time: 01:22:08 Pat Name: MARII MARQUEZ Department: Room: A487 1 Gender: F Merchandising Specialist: : [id number] Requested By: BIJU PEREIRA Order Number: [id number] Reading MD: Chandrakant Peters Measurements Intervals [place] Rate: 91 P: 60 VT: 143 QRS: -52 QRSD: 113 T: 123 QT: 426 QTc: 524 Interpretive Statements Sinus rhythm Left anterior fascicular block Consider anterior infarct Prolonged QT interval Compared to ECG 12/11/2020 16:58:22,no significant change noted. Left anterior fascicular block now present Myocardial infarct finding now present Prolonged QT interval now present Electronically Signed On 12-16-2020 10:38:27 EDT by Chandrakant Peters
[2020-12-16] MEDS: MIDODRINE 5 MG TAB PO SCH ×2 (11:21→16:33)
--- NOTE | 2020-12-16 12:36 | Consultation ---
History of Present Illness Consult date: 12/16/20 Consult reason: elevated troponin History of present illness: The patient is a 70-year-old woman with end-stage renal disease on hemodialysis, admitted to the hospital with altered mental status associated with marked hypoglycemia, blood sugar was 49 on contact with the light armored vehicle officer. She was treated with D50, and also given Narcan for the finding of pinpoint pupils. Both of these caused an improvement in her mental status. No cardiac complaints were reported, but laboratory exam on contact with the emergency room included a troponin level that was measured at 0.72, flat and unchanged on serial measurements. Her creatinine was 5.6, consistent with her end-stage renal failure. Cardiology consultation was requested for the troponin elevation. Other laboratory findings on presentation included a marked leukocytosis with a WBC of 18,000, and elevated TSH of 6.7 suggesting underlying hypothyroidism, and an INR of 2.8, with the patient on Eliquis therapy. The patient is a poor historian, the indication for Eliquis is uncertain, and the available records do not provide details of her cardiac history. ECG is normal sinus rhythm, with poor R wave progression, intraventricular conduction delay. Chest x-ray shows a moderate severity cardiomegaly, sternal vinny that suggest a prior thoracotomy and possible coronary bypass, chronic interstitial changes but no interstitial edema or heart failure. Past History Past Medical History: CAD, diabetes, dialysis, ESRD, hypertension Past Surgical History: CABG (Possible prior CABG with evidence of thoracotomy on chest x-ray), Other (Left arm AV fistula, Left chest Vas Cath.) Social history: no significant social history Family history: no significant family history Medications and Allergies Allergies Allergy/AdvReac Type Severity Reaction Status Date / Time No Known Allergies Allergy Verified 12/11/20 17:11 Home Medications Medication Instructions Recorded Confirmed Last Taken Type Apixaban [Eliquis] 5 mg PO BID 12/16/20 12/16/20 Unknown History Aspirin [Adult Aspirin] 81 mg PO QDAY 12/16/20 12/16/20 Unknown History Escitalopram [Lexapro] 10 mg PO DAILY 12/16/20 12/16/20 Unknown History Gabapentin 300 mg PO QDAY 12/16/20 12/16/20 Unknown History Levemir Flextouch 12/16/20 Unknown History Midodrine [Proamatine] 15 mg PO TID 12/16/20 12/16/20 Unknown History NovoLOG Flexpen 12/16/20 Unknown History Pantoprazole [Protonix] 40 mg PO QDAY 12/16/20 12/16/20 Unknown History Vit B Comp No.3/Folic/C/Biotin 1 each PO 12/16/20 Unknown History [Nephro-Nola Rx Tablet] sevelamer HCL [Sevelamer HCl] 800 mg PO TID 12/16/20 12/16/20 Unknown History Active Meds: Active Medications Dextrose (Dextrose 50% In Water (25gm) 50 Ml Syringe) 0 ml IV Q30MIN PRN; Protocol PRN Reason: Hypoglycemia Sodium Chloride (Nacl 0.9% 1000 Ml) 1,000 mls @ 75 mls/hr IV DIRECT JEET Last Admin: 12/16/20 05:15 Dose: 75 mls/hr Documented by: Cefepime HCl (Cefepime/Ns 2 Gm/100 Ml) 2 gm in 100 mls @ 200 mls/hr IV Q24HR JEET; Protocol Last Admin: 12/16/20 09:32 Dose: 200 mls/hr Documented by: Sodium Chloride (Nacl 0.9%) 100 mls @ 999 mls/hr IV ROSA M PRN PRN Reason: Hypotension Ibuprofen (Ibuprofen 600 Mg Tab) 600 mg PO Q6H PRN PRN Reason: Pain, Mild (1-3) Insulin Human Regular (Insulin Regular, Human 100 Units/1 Ml) 0 units SUB-Q ACHS JEET; Protocol Last Admin: 12/16/20 11:45 Dose: Not Given Documented by: Magnesium Hydroxide (Magnesium Hydroxide (Mom) Oral Liqd Udc) 30 ml PO Q4H PRN PRN Reason: Constipation Midodrine (Midodrine 5 Mg Tab) 5 mg PO TID@0800,1200,1600 [facility] Last Admin: 12/16/20 11:21 Dose: 5 mg Documented by: Morphine Sulfate (Morphine 2 Mg/1 Ml Inj) 2 mg IV Q4H PRN PRN Reason: Pain, Moderate (4-6) Morphine Sulfate (Morphine 4 Mg/1 Ml Inj) 4 mg IV Q4H PRN PRN Reason: Pain , Severe (7-10) Ondansetron HCl (Ondansetron 4 Mg/2 Ml Inj) 4 mg IV Q8H PRN PRN Reason: Nausea And Vomiting Sodium Chloride (Sodium Chloride 0.9% 10 Ml Flush Syringe) 10 ml IV BID JEET Last Admin: 12/16/20 09:33 Dose: 10 ml Documented by: Sodium Chloride (Sodium Chloride 0.9% 10 Ml Flush Syringe) 10 ml IV PRN PRN PRN Reason: LINE FLUSH Review of Systems ROS unobtainable: due to mental status Physical Examination Vital Signs Temp Pulse Resp BP Pulse Ox 98.3 F 97 H 23 125/55 98 12/16/20 01:03 12/16/20 01:03 12/16/20 01:03 12/16/20 01:03 12/16/20 01:03 General appearance: no acute distress, cachectic HEENT: Positive: PERRL Neck: Positive: neck supple Cardiac: Positive: Reg Rate and Rhythm Lungs: Positive: Decreased Breath Sounds Neuro: Positive: Weakness Abdomen: Positive: Soft Female genitourinary: deferred Skin: Positive: Clear Extremities: Absent: edema Results 12/16/20 00:57 12/16/20 00:57 Cardiac Enzymes 12/16/20 Range/Units 00:57 AST 2838 H (5-40) units/L CK-MB (CK-2) 5.1 H (0.0-4.0) ng/mL Coagulation 12/16/20 Range/Units 00:57 PT 29.9 H (12.2-14.9) Sec. INR 2.80 H (0.87-1.13) APTT 39.9 H (24.2-36.6) Sec. Lipids 12/16/20 Range/Units 00:57 Triglycerides 104 (2-149) mg/dL Cholesterol 110 (50-199) mg/dL HDL Cholesterol 64 H (40-59) mg/dL Cholesterol/HDL Ratio 1.71 % CBC 12/16/20 Range/Units 00:57 WBC 18.2 H (4.5-11.0) K/mm3 RBC 3.13 L (3.65-5.03) M/mm3 Hgb 9.4 L (10.1-14.3) gm/dl Hct 31.3 (30.3-42.9) % Plt Count 195 (140-440) K/mm3 Lymph # (Auto) 1.5 (1.2-5.4) K/mm3 [place] # (Auto) 1.4 H (0.0-0.8) K/mm3 Eos # (Auto) 0.0 (0.0-0.4) K/mm3 Baso # (Auto) 0.1 (0.0-0.1) K/mm3 Comprehensive Metabolic Panel 12/16/20 Range/Units 00:57 Sodium 136 L (137-145) mmol/L Potassium 5.4 H (3.6-5.0) mmol/L Chloride 94.2 L (98-107) mmol/L Carbon Dioxide 18 L D (22-30) mmol/L BUN 34 H (7-17) mg/dL Creatinine 5.6 H (0.6-1.2) mg/dL Glucose 108 H (65-100) mg/dL Calcium 9.3 (8.4-10.2) mg/dL AST 2838 H (5-40) units/L ALT 1353 H (7-56) units/L Alkaline Phosphatase 186 H (35-129) units/L Total Protein 6.5 (6.3-8.2) g/dL Albumin 3.2 L (3.9-5) g/dL EKG interpretations - Telemetry EKG Rhythm: Sinus Rhythm Assessment and Plan - Patient Problems (1) Elevated troponin Current Visit: Yes Status: Acute Plan to address problem: Patient presented with altered mental status due to severe hypoglycemia. The troponin elevation unchanged on serial levels is a nonspecific finding in the setting of end-stage renal failure. We will request patient's prior medical records including prior cardiac assessment and management therapies, and order an echocardiogram for current assessment of left ventricular function, to enable us optimally tailor her chronic cardiac management.
--- NOTE | 2020-12-17 03:06 | Consultation ---
DATE OF CONSULTATION: 12/16/2020 REFERRING PHYSICIAN: José Miguel Iyer. INDICATION: 1. Acute liver failure. 2. Increased liver function tests. HISTORY OF PRESENT ILLNESS: The patient is a 70-year-old female with history of hypertension, end-stage renal disease on dialysis as well as multiple medical problems including hypertension, status post IN, AFib, coronary artery disease, COPD, and diabetes as well as HIV, hypothyroidism and migraines. The patient recently was admitted for issues related to end-stage renal disease and was treated conservatively. At that time and when labs were last drawn on 12/12/2020, the patient's liver function tests were normal. The patient was now found with decreased mentation and general weakness and subsequently was admitted after she was given Narcan, which seemed to make her more alert. The patient was then noted to have increased transaminases in the . She was admitted for sepsis and further workup and GI consulted for increased liver function test. No reported history of liver disease in the past. No recent diet or medication changes. PAST MEDICAL HISTORY: 1. Anemia. 2. Arthritis. 3. Status post IN. 4. End-stage renal disease, on dialysis. 5. AFib. 6. Arrhythmia. 7. Diabetes. MEDICATIONS: Reviewed and updated in chart. ALLERGIES: No known drug allergies. SOCIAL HISTORY: Reported alcohol in the past. FAMILY HISTORY: Negative for colon cancer, IBD, or liver disease. REVIEW OF SYSTEMS: GENERAL: Positive weakness. She is having lightheadedness. PULMONARY: Reports of shortness of breath, chest pain. GASTROINTESTINAL: Denies any specific complaints. All points of a 13-point review of systems otherwise negative. PHYSICAL EXAMINATION: VITAL SIGNS: Temperature of 97.6, pulse 73, respiration 19, blood pressure 102/60. GENERAL: Fairly nourished, but thin, no acute distress. HEENT: Pupils round and reactive. PULMONARY: Rhonchi. CARDIAC: Regular rhythm, normal S1, S2. ABDOMEN: Positive bowel sounds. SKIN: No obvious rashes. LABORATORY DATA: Pertinent for white count of 18.2, hematocrit of 9.4 and 31.3, platelet count of 195. Chem-7: Sodium of 136, potassium 5.4, chloride 94, CO2 of 18, BUN and creatinine of 34 and 5.6. AST, ALT of 38 and 1353 and alkaline phosphatase of 186 and the total bilirubin of 1.3. LFTs on 12/12/2020 were normal. Abdominal ultrasound on 12/16/2020 showed no acute abnormalities. ASSESSMENT AND PLAN: A 70-year-old female with multiple past medical history as noted above found with decreased mentation, was given Narcan. The patient's LFTs were normal, less than a week ago when she was discharged and now her transaminases are in the [id number]. Strongly suspect shock liver, but we will rule out other etiologies. General management should be hemodynamic stability. PLAN: 1. We will review ultrasound. 2. Liver related labs including hepatitis serologies. 3. Avoid hepatotoxic drugs. 4. If indeed shock liver, would expect AST and ALT to start to improve with hemodynamic stability. 5. No plans for liver biopsy at this time. 6. Sepsis and other issues per primary team. 7. We will follow. TID: [id number] RECEIPT: [id number] DL/SHEELA
[2020-12-17 06:47] LABS: Basophils # (Auto) 0.1 K/mm3 (0.0-0.1); Basophils % (Auto) 0.8 % (0.0-1.8); Eosinophils # (Auto) 0.4 K/mm3 (0.0-0.4); Hematocrit 24.6 % (30.3-42.9); Hemoglobin 7.6 gm/dl (10.1-14.3); Lymphocytes # (Auto) 1.2 K/mm3 (1.2-5.4); Lymphocytes % (Auto) 9.7 % (13.4-35.0); Mean Corpuscular HGB Conc 31 % (30-34); Mean Corpuscular Volume 98 fl (79-97); Monocytes % (Auto) 8.3 % (0.0-7.3); Platelet Count 137 K/mm3 (140-440); Red Blood Count 2.52 M/mm3 (3.65-5.03)
[2020-12-17 06:56] LABS: INR 2.36 (0.87-1.13)
[2020-12-17 07:00] LABS: Red Cell Distribution Width 22.7 % (13.2-15.2)
[2020-12-17 07:06] LABS: Calcium 9.5 mg/dL (8.4-10.2)
[2020-12-17 07:11] LABS: Albumin 2.7 g/dL (3.9-5); Bilirubin,Direct 0.6 mg/dL (0-0.2)
[2020-12-17] MEDS: MIDODRINE 5 MG TAB PO SCH ×4 (08:00→16:38)
[2020-12-17] MEDS: INSULIN REGULAR, HUMAN 100 UNITS/1 ML SUB-Q SCH ×4 (10:00→21:32)
[2020-12-17] MEDS: CEFEPIME/NS 2 GM/100 ML 2 GM/100 ML BAG IV SCH (10:04)
--- NOTE | 2020-12-17 11:06 | Progress Note ---
Assessment and Plan - Patient Problems (1) Elevated troponin Current Visit: Yes Status: Acute Plan to address problem: Troponin elevation, nonspecific finding in the setting of end-stage renal failure. Will order an echocardiogram for assessment of left ventricular function. Request patient's prior medical records including prior cardiac assessment. Subjective Date of service: 12/17/20 Interval history: Patient is resting in bed with eyes closed. No cardiac event reported. Objective Vital Signs Temp Pulse Pulse Pulse Resp BP BP 12/17/20 09:56 98.0 F 87 18 102/30 12/17/20 08:02 81 81 18 12/17/20 04:01 98.0 F 86 18 130/96 12/17/20 03:59 98.0 F 87 18 89/47 12/16/20 23:31 97.5 F L 81 18 119/28 12/16/20 22:00 98.5 F 80 18 115/40 12/16/20 21:50 81 111/46 12/16/20 21:30 79 109/41 12/16/20 21:15 79 119/40 12/16/20 21:00 82 114/39 12/16/20 20:45 83 108/48 12/16/20 20:30 82 110/44 12/16/20 20:15 80 112/49 12/16/20 20:00 82 106/46 12/16/20 19:45 81 108/44 12/16/20 19:30 78 115/41 12/16/20 19:15 77 114/45 12/16/20 19:00 76 105/49 12/16/20 18:50 76 111/45 12/16/20 18:45 98.2 F 75 18 109/49 12/16/20 16:33 76 17 103/43 12/16/20 16:14 98.2 F 200 H 19 78/43 12/16/20 13:27 78 108/46 12/16/20 11:30 97.6 F 73 19 102/30 Pulse Ox Pulse Ox 12/17/20 09:56 99 12/17/20 08:02 96 12/17/20 04:01 93 12/17/20 03:59 93 12/16/20 23:31 96 12/16/20 22:00 96 97 12/16/20 21:50 12/16/20 21:30 12/16/20 21:15 12/16/20 21:00 12/16/20 20:45 12/16/20 20:30 12/16/20 20:15 12/16/20 20:00 12/16/20 19:45 12/16/20 19:30 12/16/20 19:15 12/16/20 19:00 12/16/20 18:50 12/16/20 18:45 97 12/16/20 16:33 97 12/16/20 16:14 87 12/16/20 13:27 12/16/20 11:30 93 - Physical Examination General: No Apparent Distress Cardiac: Positive: Reg Rate and Rhythm - Labs and Meds Cardiac Enzymes 12/17/20 Range/Units 05:42 AST 1744 H (5-40) units/L Coagulation 12/17/20 Range/Units 05:42 PT 26.3 H (12.2-14.9) Sec. INR 2.36 H (0.87-1.13) CBC 12/17/20 Range/Units 05:42 WBC 12.0 H (4.5-11.0) K/mm3 RBC 2.52 L (3.65-5.03) M/mm3 Hgb 7.6 L (10.1-14.3) gm/dl Hct 24.6 L D (30.3-42.9) % Plt Count 137 L (140-440) K/mm3 Lymph # (Auto) 1.2 (1.2-5.4) K/mm3 [place] # (Auto) 1.0 H (0.0-0.8) K/mm3 Eos # (Auto) 0.4 (0.0-0.4) K/mm3 Baso # (Auto) 0.1 (0.0-0.1) K/mm3 Comprehensive Metabolic Panel 12/17/20 12/17/20 Range/Units 05:42 05:42 Sodium 142 (137-145) mmol/L Potassium 4.3 D (3.6-5.0) mmol/L Chloride 101.7 (98-107) mmol/L Carbon Dioxide 25 D (22-30) mmol/L BUN 28 H (7-17) mg/dL Creatinine 4.5 H (0.6-1.2) mg/dL Glucose 176 H (65-100) mg/dL Calcium 9.5 (8.4-10.2) mg/dL Direct Bilirubin 0.6 H (0-0.2) mg/dL Indirect Bilirubin 0.3 mg/dL AST 1744 H (5-40) units/L ALT 1938 H (7-56) units/L Alkaline Phosphatase 158 H (35-129) units/L Total Protein 5.7 L (6.3-8.2) g/dL Albumin 2.7 L (3.9-5) g/dL
--- NOTE | 2020-12-17 12:35 | Progress Note ---
Assessment and Plan Assessment and plan: (1) Altered mental status Current Visit: Yes Status: Acute Plan to address problem: Possibly secondary to multiple underlying problems including possible sepsis, end-stage renal disease with hyperkalemia and elevated liver enzymes. Will monitor mental status. (2) ESRD (end stage renal disease) Current Visit: No Status: Acute Plan to address problem: We will place consult to nephrology for evaluation. (3) Hyperkalemia Current Visit: No Status: Acute Plan to address problem: Possibly secondary to the end-stage renal disease. Patient will be given Kayexalate, insulin/glucose, sodium bicarb and will monitor potassium levels. (4) Elevated liver enzymes Current Visit: Yes Status: Acute Plan to address problem: Etiology is unclear. We will request gastroenterology evaluation. We will also check hepatitis profile. (5) Elevated troponin Current Visit: Yes Status: Acute Plan to address problem: Possibly secondary to the underlying end-stage renal disease versus sepsis. However we trend cardiac enzymes and request cardiology evaluation and recommendations. (6) Diabetes mellitus Current Visit: Yes Status: Acute Plan to address problem: Patient placed on sliding scale insulin. We will monitor Accu-Cheks closely. (7) DVT prophylaxis Current Visit: Yes Status: Acute Plan to address problem: Patient currently on anticoagulation with Eliquis. (8) Full code status Current Visit: Yes Status: Acute Plan to address problem: Patient is full code. 12/17/20 Patient with ESRD on hemodialysis presents with altered mental status, acute metabolic encephalopathy. Also has markedly elevated AST and ALT GI consulted. Her LFTs were normal last admission just 5 days ago. 12/11/ History Interval history: Altered mental status Hospitalist Physical - Physical exam Narrative exam: Gen: Not in acute distress, HEENT: Normocephalic, atraumatic Neck : supple, no JVD Lungs:clear to auscultation bilaterally, no wheeze Heart:S1 and S2 reg, no murmurs, rubs or gallop Abd: Soft , non tender, non distended, normal bowel sounds Ext: No edema, no clubbing, no cyanosis Neuro: lethargic - Constitutional Vitals: Temp Pulse Resp BP Pulse Ox 98.0 F 87 18 102/30 99 12/17/20 09:56 12/17/20 09:56 12/17/20 09:56 12/17/20 09:56 12/17/20 09:56 HEART Score - HEART Score Troponin: Troponin T 0.731 ng/mL (0.00-0.029) H* 12/16/20 05:48 Results - Labs CBC & Chem 7: 12/17/20 05:42 12/17/20 05:42 Labs: Laboratory Last Values WBC 12.0 K/mm3 (4.5-11.0) H 12/17/20 05:42 RBC 2.52 M/mm3 (3.65-5.03) L 12/17/20 05:42 Hgb 7.6 gm/dl (10.1-14.3) L 12/17/20 05:42 Hct 24.6 % (30.3-42.9) L D 12/17/20 05:42 MCV 98 fl (79-97) H 12/17/20 05:42 MCH 30 pg (28-32) 12/17/20 05:42 MCHC 31 % (30-34) 12/17/20 05:42 RDW 22.7 % (13.2-15.2) H 12/17/20 05:42 Plt Count 137 K/mm3 (140-440) L 12/17/20 05:42 Lymph % (Auto) 9.7 % (13.4-35.0) L 12/17/20 05:42 Owen % (Auto) 8.3 % (0.0-7.3) H 12/17/20 05:42 Eos % (Auto) 3.0 % (0.0-4.3) 12/17/20 05:42 Baso % (Auto) 0.8 % (0.0-1.8) 12/17/20 05:42 Lymph # (Auto) 1.2 K/mm3 (1.2-5.4) 12/17/20 05:42 Owen # (Auto) 1.0 K/mm3 (0.0-0.8) H 12/17/20 05:42 Eos # (Auto) 0.4 K/mm3 (0.0-0.4) 12/17/20 05:42 Baso # (Auto) 0.1 K/mm3 (0.0-0.1) 12/17/20 05:42 Seg Neutrophils % 78.2 % (40.0-70.0) H 12/17/20 05:42 Seg Neutrophils # 9.4 K/mm3 (1.8-7.7) H 12/17/20 05:42 PT 26.3 Sec. (12.2-14.9) H 12/17/20 05:42 INR 2.36 (0.87-1.13) H 12/17/20 05:42 APTT 39.9 Sec. (24.2-36.6) H 12/16/20 00:57 Thrombin Time 16.9 Sec. (15.1-19.6) 12/16/20 00:57 VBG pH 7.334 (7.320-7.420) 12/16/20 00:57 Sodium 142 mmol/L (137-145) 12/17/20 05:42 Potassium 4.3 mmol/L (3.6-5.0) D 12/17/20 05:42 Chloride 101.7 mmol/L (98-107) 12/17/20 05:42 Carbon Dioxide 25 mmol/L (22-30) D 12/17/20 05:42 Anion Gap 20 mmol/L 12/17/20 05:42 BUN 28 mg/dL (7-17) H 12/17/20 05:42 Creatinine 4.5 mg/dL (0.6-1.2) H 12/17/20 05:42 Estimated GFR 12 ml/min 12/17/20 05:42 BUN/Creatinine Ratio 6 % 12/17/20 05:42 Glucose 176 mg/dL (65-100) H 12/17/20 05:42 POC Glucose 154 mg/dL (70-105) H 12/17/20 12:30 Lactic Acid 2.40 mmol/L (0.7-2.0) H* 12/16/20 10:35 Calcium 9.5 mg/dL (8.4-10.2) 12/17/20 05:42 Total Bilirubin 0.90 mg/dL (0.1-1.2) 12/17/20 05:42 Direct Bilirubin 0.6 mg/dL (0-0.2) H 12/17/20 05:42 Indirect Bilirubin 0.3 mg/dL 12/17/20 05:42 AST 1744 units/L (5-40) H 12/17/20 05:42 ALT 1938 units/L (7-56) H 12/17/20 05:42 Alkaline Phosphatase 158 units/L (35-129) H 12/17/20 05:42 Ammonia 27.0 umol/L (25-60) 12/16/20 00:57 Total Creatine Kinase 84 units/L (30-135) 12/16/20 00:57 CK-MB (CK-2) 5.1 ng/mL (0.0-4.0) H 12/16/20 00:57 CK-MB (CK-2) Rel Index 6.0 (0-4) H 12/16/20 00:57 Troponin T 0.731 ng/mL (0.00-0.029) H* 12/16/20 05:48 Total Protein 5.7 g/dL (6.3-8.2) L 12/17/20 05:42 Albumin 2.7 g/dL (3.9-5) L 12/17/20 05:42 Albumin/Globulin Ratio 0.9 % 12/17/20 05:42 Triglycerides 104 mg/dL (2-149) 12/16/20 00:57 Cholesterol 110 mg/dL (50-199) 12/16/20 00:57 LDL Cholesterol Direct 34 mg/dL (50-130) L 12/16/20 00:57 HDL Cholesterol 64 mg/dL (40-59) H 12/16/20 00:57 Cholesterol/HDL Ratio 1.71 % 12/16/20 00:57 TSH 4.000 mlU/mL (0.270-4.200) 12/17/20 05:42 Free T4 1.54 ng/dL (0.76-1.46) H 12/16/20 00:57 Acetaminophen 5.0 ug/mL (10.0-30.0) L 12/16/20 05:48 Plasma/Serum Alcohol < 0.01 % (0-0.07) 12/16/20 00:57 Hepatitis A IgM Ab Non-reactive (NonReactive) 12/16/20 03:55 Hep Bs Antigen Non-reactive (Negative) 12/16/20 03:55 Hep B Core IgM Ab Non-reactive (NonReactive) 12/16/20 03:55 Hepatitis C Antibody Non-reactive (NonReactive) 12/16/20 03:55 Microbiology: Microbiology 12/16/20 03:55 Peripheral/Venous Blood Culture - Preliminary NO GROWTH AFTER 24 HOURS 12/16/20 03:10 Peripheral/Venous Blood Culture - Preliminary NO GROWTH AFTER 24 HOURS [place]/IV: Voiding Method Incontinent Active Medications - Current Medications Current Medications: Generic Name Dose Route Start Last Admin Trade Name Freq PRN Reason Stop Dose Admin Dextrose 0 ml 12/16/20 03:40 Dextrose 50% In Water (25gm) 50 Ml Syringe IV Q30MIN PRN Hypoglycemia Protocol Sodium Chloride 1,000 mls @ 75 mls/hr 12/16/20 03:45 12/16/20 05:15 Nacl 0.9% 1000 Ml IV 75 mls/hr DIRECT JEET Administration Cefepime HCl 2 gm in 100 mls @ 200 mls/hr 12/16/20 10:00 12/17/20 10:04 Cefepime/Ns 2 Gm/100 Ml IV 200 mls/hr Q24HR JEET Administration Protocol Sodium Chloride 100 mls @ 999 mls/hr 12/16/20 08:09 Nacl 0.9% IV ROSA M PRN Hypotension Ibuprofen 600 mg 12/16/20 03:40 Ibuprofen 600 Mg Tab PO Q6H PRN Pain, Mild (1-3) Insulin Human Regular 0 units 12/16/20 07:30 12/17/20 12:32 Insulin Regular, Human 100 Units/1 Ml SUB-Q 2 units ACHS JEET Administration Protocol Magnesium Hydroxide 30 ml 12/16/20 03:40 Magnesium Hydroxide (Mom) Oral Liqd Udc PO Q4H PRN Constipation Midodrine 5 mg 12/16/20 12:00 12/17/20 12:32 Midodrine 5 Mg Tab PO 5 mg TID@0800,1200,1600 JEET Administration Morphine Sulfate 2 mg 12/16/20 03:40 Morphine 2 Mg/1 Ml Inj IV Q4H PRN Pain, Moderate (4-6) Morphine Sulfate 4 mg 12/16/20 03:40 Morphine 4 Mg/1 Ml Inj IV Q4H PRN Pain , Severe (7-10) Ondansetron HCl 4 mg 12/16/20 03:40 Ondansetron 4 Mg/2 Ml Inj IV Q8H PRN Nausea And Vomiting Sodium Chloride 10 ml 12/16/20 10:00 12/17/20 10:04 Sodium Chloride 0.9% 10 Ml Flush Syringe IV 10 ml BID JEET Administration Sodium Chloride 10 ml 12/16/20 03:40 Sodium Chloride 0.9% 10 Ml Flush Syringe IV PRN PRN LINE FLUSH Nutrition/Malnutrition Assess - Dietary Evaluation Nutrition/Malnutrition Findings: Nutrition Notes Start: 12/16/20 14:32 Freq: Status: Active Protocol: Document 12/16/20 14:32 (Rec: 12/16/20 14:38 [id number]) Nutrition Notes Need for Assessment generated from: MD Order Initial or Follow up Brief Note Current Diagnosis CKD (stage V CKD),Diabetes, Hypertension Other Pertinent Diagnosis AMS, Elevated LFTs Current Diet pureed Labs/Tests Na 136 K 5.4 BUN 34 Cr 5.6 Pertinent Medications NS at 75 ml/hr Height 5 ft 6 in Weight 61 kg [place] Body Weight (kg) 59.09 BMI 21.7 Subjective/Other Information MD order for diet education. Pt not appropriate at this time. RN screen for skin risk. Pt has wound on heals. [employer] cleared pt for pureed diet. Could not wake pt at time of visit. Burn Absent Trauma Absent GI Symptoms None Minimum of two criteria No physical signs of malnutrition #1 Nutrition Diagnosis Increased nutrient needs ( specify in comment below) Comments: protein Etiology ESRD Wound healing As Evidenced by Signs and Symptoms pt on HD pt with wounds on heel and lower leg Is patient on ventilator? No Is Patient Ambulatory and/or Out of Bed No REE-([facility]-confined to bed) 1387.992 Calculation Used for Recommendations [facility] Additional Notes Protein: 1.25-1.5g/kg (76-92g) Fluid: 1 ml/kcal or per Nutrition Intervention Change Diet Order: Continue Goal #1 Meet at least 75% of energy and protein needs via PO Goal #2 wound healing Anticipated Discharge Needs: renal, pureed Follow-Up By: 12/18/20 Additional Comments FU for intakes and need for ONS
--- NOTE | 2020-12-17 14:10 | Progress Note ---
Assessment and Plan 1. ESRD: Patient is on maintenance hemodialysis three times a week, MWF schedule. Meds dosage based on GFR. Hemodialysis: 12/16. 2. FEN: Hyperkalemia, improved. Anion-gap metabolic acidosis, 2/2 Lactic acidosis, monitor. Monitor lytes and volume status. 3. Anemia, POA: 2/2 ESRD. Epogen with HD as needed. 4. Acute metabolic encephalopathy, POA: CT head negative. Monitor. 5. Sepsis, POA: Abx. Follow cultures. 6. Elevated Troponin: Followed by Cards. 7. H/o HTN: BP is on the lowside. Monitor BP. 8. Elevated ALT / AST: Followed by GI. Subjective: Patient was seen and examined at the bedside. General Appearance: General appearance: well-developed, appears stated age, not in distress HEENT: ATNC, pupils equal Neck: trachea midline Respiratory: ctab Heart: regular, S1S2, no murmur Abdomen: soft, bowel sounds heard, not tender Integumentary: no rash, warm and dry Neurologic: lethargic, not following any command, not conversing Ext: no edema Hemodialysis access: L IJ tunnel catheter Subjective Date of service: 12/17/20 Objective - Vital Signs Vital signs: Vital Signs - 12hr 12/17/20 12/17/20 12/17/20 03:59 04:01 08:02 Temperature 98.0 F 98.0 F Pulse Rate 87 86 Pulse Rate [ 81 Apical] Pulse Rate [ 81 From Monitor] Respiratory 18 18 18 Rate Blood Pressure 89/47 130/96 O2 Sat by Pulse 93 93 96 Oximetry 12/17/20 09:56 Temperature 98.0 F Pulse Rate 87 Pulse Rate [ Apical] Pulse Rate [ From Monitor] Respiratory 18 Rate Blood Pressure 102/30 O2 Sat by Pulse 99 Oximetry - Lab 12/17/20 05:42 12/17/20 05:42 Most recent lab results Calcium 9.5 mg/dL (8.4-10.2) 12/17/20 05:42 Medications & Allergies - Medications Allergies/Adverse Reactions: Allergies No Known Allergies Allergy (Verified 12/11/20 17:11) Home Medications: Home Medications Medication Instructions Recorded Confirmed Last Taken Type Apixaban [Eliquis] 5 mg PO BID 12/16/20 12/16/20 Unknown History Aspirin [Adult Aspirin] 81 mg PO QDAY 12/16/20 12/16/20 Unknown History Escitalopram [Lexapro] 10 mg PO DAILY 12/16/20 12/16/20 Unknown History Gabapentin 300 mg PO QDAY 12/16/20 12/16/20 Unknown History Levemir Flextouch 12/16/20 Unknown History Midodrine [Proamatine] 15 mg PO TID 12/16/20 12/16/20 Unknown History NovoLOG Flexpen 12/16/20 Unknown History Pantoprazole [Protonix] 40 mg PO QDAY 12/16/20 12/16/20 Unknown History Vit B Comp No.3/Folic/C/Biotin 1 each PO DAILY 12/16/20 12/16/20 Unknown History [Nephro-Nola Rx Tablet] sevelamer HCL [Sevelamer HCl] 800 mg PO TID 12/16/20 12/16/20 Unknown History Active Medications: Generic Name Dose Route Start Last Admin Trade Name Freq PRN Reason Stop Dose Admin Dextrose 0 ml 12/16/20 03:40 Dextrose 50% In Water (25gm) 50 Ml Syringe IV Q30MIN PRN Hypoglycemia Protocol Sodium Chloride 1,000 mls @ 75 mls/hr 12/16/20 03:45 12/16/20 05:15 Nacl 0.9% 1000 Ml IV 75 mls/hr DIRECT JEET Administration Cefepime HCl 2 gm in 100 mls @ 200 mls/hr 12/16/20 10:00 12/17/20 10:04 Cefepime/Ns 2 Gm/100 Ml IV 200 mls/hr Q24HR JEET Administration Protocol Sodium Chloride 100 mls @ 999 mls/hr 12/16/20 08:09 Nacl 0.9% IV ROSA M PRN Hypotension Ibuprofen 600 mg 12/16/20 03:40 Ibuprofen 600 Mg Tab PO Q6H PRN Pain, Mild (1-3) Insulin Human Regular 0 units 12/16/20 07:30 12/17/20 12:32 Insulin Regular, Human 100 Units/1 Ml SUB-Q 2 units ACHS JEET Administration Protocol Magnesium Hydroxide 30 ml 12/16/20 03:40 Magnesium Hydroxide (Mom) Oral Liqd Udc PO Q4H PRN Constipation Midodrine 5 mg 12/16/20 12:00 12/17/20 12:32 Midodrine 5 Mg Tab PO 5 mg TID@0800,1200,1600 JEET Administration Morphine Sulfate 2 mg 12/16/20 03:40 Morphine 2 Mg/1 Ml Inj IV Q4H PRN Pain, Moderate (4-6) Morphine Sulfate 4 mg 12/16/20 03:40 Morphine 4 Mg/1 Ml Inj IV Q4H PRN Pain , Severe (7-10) Ondansetron HCl 4 mg 12/16/20 03:40 Ondansetron 4 Mg/2 Ml Inj IV Q8H PRN Nausea And Vomiting Sodium Chloride 10 ml 12/16/20 10:00 12/17/20 10:04 Sodium Chloride 0.9% 10 Ml Flush Syringe IV 10 ml BID JEET Administration Sodium Chloride 10 ml 12/16/20 03:40 Sodium Chloride 0.9% 10 Ml Flush Syringe IV PRN PRN LINE FLUSH
--- NOTE | 2020-12-17 14:54 | Gastroenterology Progress Note ---
Assessment and Plan Liver: increase lft's probable due to shock liver vs other - improving lft's today overall - hepatitis serologies negative to date - continue follow labs - hemodynamic stability and other issues per primary team - will follow Subjective Date of service: 12/17/20 Interval history: - no GI issues overnight Objective - Constitutional Vitals: Temp Pulse Resp BP Pulse Ox 98.0 F 87 18 102/30 99 12/17/20 09:56 12/17/20 09:56 12/17/20 09:56 12/17/20 09:56 12/17/20 09:56 General appearance: no acute distress - EENT Eyes: PERRL - Respiratory Respiratory: bilateral: CTA - Cardiovascular Rhythm: regular Heart Sounds: Present: S1 & S2 - Gastrointestinal General gastrointestinal: Present: soft, non-tender, non-distended - Labs CBC & Chem 7: 12/17/20 05:42 12/17/20 05:42 Labs: Laboratory Results - last 24 hr 12/16/20 12/16/20 12/17/20 16:12 21:00 05:42 WBC 12.0 H RBC 2.52 L Hgb 7.6 L Hct 24.6 L D MCV 98 H MCH 30 MCHC 31 RDW 22.7 H Plt Count 137 L Lymph % (Auto) 9.7 L Parker % (Auto) 8.3 H Eos % (Auto) 3.0 Baso % (Auto) 0.8 Lymph # (Auto) 1.2 Parker # (Auto) 1.0 H Eos # (Auto) 0.4 Baso # (Auto) 0.1 Seg Neutrophils % 78.2 H Seg Neutrophils # 9.4 H PT INR Sodium Potassium Chloride Carbon Dioxide Anion Gap BUN Creatinine Estimated GFR BUN/Creatinine Ratio Glucose POC Glucose 115 H 149 H Calcium Total Bilirubin Direct Bilirubin Indirect Bilirubin AST ALT Alkaline Phosphatase Total Protein Albumin Albumin/Globulin Ratio TSH 12/17/20 12/17/20 12/17/20 05:42 05:42 05:42 WBC RBC Hgb Hct MCV MCH MCHC RDW Plt Count Lymph % (Auto) Parker % (Auto) Eos % (Auto) Baso % (Auto) Lymph # (Auto) Parker # (Auto) Eos # (Auto) Baso # (Auto) Seg Neutrophils % Seg Neutrophils # PT 26.3 H INR 2.36 H Sodium 142 Potassium 4.3 D Chloride 101.7 Carbon Dioxide 25 D Anion Gap 20 BUN 28 H Creatinine 4.5 H Estimated GFR 12 BUN/Creatinine Ratio 6 Glucose 176 H POC Glucose Calcium 9.5 Total Bilirubin 0.90 Direct Bilirubin 0.6 H Indirect Bilirubin 0.3 AST 1744 H ALT 1938 H Alkaline Phosphatase 158 H Total Protein 5.7 L Albumin 2.7 L Albumin/Globulin Ratio 0.9 TSH 12/17/20 12/17/20 12/17/20 05:42 09:54 12:30 WBC RBC Hgb Hct MCV MCH MCHC RDW Plt Count Lymph % (Auto) [place] % (Auto) Eos % (Auto) Baso % (Auto) Lymph # (Auto) Parker # (Auto) Eos # (Auto) Baso # (Auto) Seg Neutrophils % Seg Neutrophils # PT INR Sodium Potassium Chloride Carbon Dioxide Anion Gap BUN Creatinine Estimated GFR BUN/Creatinine Ratio Glucose POC Glucose 150 H 154 H Calcium Total Bilirubin Direct Bilirubin Indirect Bilirubin AST ALT Alkaline Phosphatase Total Protein Albumin Albumin/Globulin Ratio TSH 4.000
[2020-12-17] MEDS: SODIUM CHLORIDE 0.9% 1000 ML 1,000 ML IV SCH (22:24)
[2020-12-18 06:41] LABS: Hematocrit 27.5 % (30.3-42.9); Hemoglobin 8.2 gm/dl (10.1-14.3); Mean Corpuscular HGB Conc 30 % (30-34); Mean Corpuscular Volume 102 fl (79-97)
[2020-12-18 06:43] LABS: Albumin 2.6 g/dL (3.9-5); Calcium 8.9 mg/dL (8.4-10.2)
[2020-12-18 06:47] LABS: Platelet Count 87 K/mm3 (140-440); Red Cell Distribution Width 22.5 % (13.2-15.2)
--- NOTE | 2020-12-18 08:22 | Progress Note ---
Assessment and Plan Assessment and plan: (1) Altered mental status Current Visit: Yes Status: Acute Plan to address problem: Possibly secondary to multiple underlying problems including possible sepsis, end-stage renal disease with hyperkalemia and elevated liver enzymes. Will monitor mental status. (2) ESRD (end stage renal disease) Current Visit: No Status: Acute Plan to address problem: We will place consult to nephrology for evaluation. (3) Hyperkalemia Current Visit: No Status: Acute Plan to address problem: Possibly secondary to the end-stage renal disease. Patient will be given Kayexalate, insulin/glucose, sodium bicarb and will monitor potassium levels. (4) Elevated liver enzymes Current Visit: Yes Status: Acute Plan to address problem: Etiology is unclear. We will request gastroenterology evaluation. We will also check hepatitis profile. (5) Elevated troponin Current Visit: Yes Status: Acute Plan to address problem: Possibly secondary to the underlying end-stage renal disease versus sepsis. However we trend cardiac enzymes and request cardiology evaluation and recommendations. (6) Diabetes mellitus Current Visit: Yes Status: Acute Plan to address problem: Patient placed on sliding scale insulin. We will monitor Accu-Cheks closely. (7) DVT prophylaxis Current Visit: Yes Status: Acute Plan to address problem: Patient currently on anticoagulation with Eliquis. (8) Full code status Current Visit: Yes Status: Acute Plan to address problem: Patient is full code. 12/17/20 Patient with ESRD on hemodialysis presents with altered mental status, acute metabolic encephalopathy. Also has markedly elevated AST and ALT GI consulted. Her LFTs were normal last admission just 5 days ago. 12/18/20 Patient with ESRD on hemodialysis. Rapid response called thie morning. She is very lethargic, minimal responsive. Bld glucose 45mg/dl and BP 74/15. She was given 1 amp D50. Blood glucose now 163. BP up to 123/30 but MAP still under 65. Will give 500 ml Normal Saline and transfer to [email or web address] discussed with Dr. Chong, Nephrology. LFTs improving though still very high. 12/11/ History Interval history: Altered mental status Rapid response called this morning because altered mental status, minimal responsve, low blood glucose of 45mg/dl and BP 74/15 Hospitalist Physical - Physical exam Narrative exam: Gen: Not in acute distress, HEENT: Normocephalic, atraumatic Neck : supple, no JVD Lungs:clear to auscultation bilaterally, no wheeze Heart:S1 and S2 reg, no murmurs, rubs or gallop Abd: Soft , non tender, non distended, normal bowel sounds Ext: No edema, no clubbing, no cyanosis Neuro: lethargic, minimal responsive, opes eyes - Constitutional Vitals: Temp Pulse Resp BP Pulse Ox 97.4 F L 80 16 95/21 95 12/18/20 04:09 12/18/20 06:00 12/18/20 04:09 12/18/20 04:09 12/18/20 04:00 HEART Score - HEART Score Troponin: Troponin T 0.731 ng/mL (0.00-0.029) H* 12/16/20 05:48 Results - Labs CBC & Chem 7: 12/18/20 05:57 12/18/20 05:57 Labs: Laboratory Last Values WBC 14.8 K/mm3 (4.5-11.0) H 12/18/20 05:57 RBC 2.70 M/mm3 (3.65-5.03) L 12/18/20 05:57 Hgb 8.2 gm/dl (10.1-14.3) L 12/18/20 05:57 Hct 27.5 % (30.3-42.9) L 12/18/20 05:57 MCV 102 fl (79-97) H 12/18/20 05:57 MCH 30 pg (28-32) 12/18/20 05:57 MCHC 30 % (30-34) 12/18/20 05:57 RDW 22.5 % (13.2-15.2) H 12/18/20 05:57 Plt Count 87 K/mm3 (140-440) L 12/18/20 05:57 Lymph % (Auto) 9.7 % (13.4-35.0) L 12/17/20 05:42 [place] % (Auto) 8.3 % (0.0-7.3) H 12/17/20 05:42 Eos % (Auto) 3.0 % (0.0-4.3) 12/17/20 05:42 Baso % (Auto) 0.8 % (0.0-1.8) 12/17/20 05:42 Lymph # (Auto) 1.2 K/mm3 (1.2-5.4) 12/17/20 05:42 [place] # (Auto) 1.0 K/mm3 (0.0-0.8) H 12/17/20 05:42 Eos # (Auto) 0.4 K/mm3 (0.0-0.4) 12/17/20 05:42 Baso # (Auto) 0.1 K/mm3 (0.0-0.1) 12/17/20 05:42 Seg Neutrophils % 78.2 % (40.0-70.0) H 12/17/20 05:42 Seg Neutrophils # 9.4 K/mm3 (1.8-7.7) H 12/17/20 05:42 PT 26.3 Sec. (12.2-14.9) H 12/17/20 05:42 INR 2.36 (0.87-1.13) H 12/17/20 05:42 APTT 39.9 Sec. (24.2-36.6) H 12/16/20 00:57 Thrombin Time 16.9 Sec. (15.1-19.6) 12/16/20 00:57 VBG pH 7.334 (7.320-7.420) 12/16/20 00:57 Sodium 144 mmol/L (137-145) 12/18/20 05:57 Potassium 4.4 mmol/L (3.6-5.0) 12/18/20 05:57 Chloride 104.7 mmol/L (98-107) 12/18/20 05:57 Carbon Dioxide 18 mmol/L (22-30) L D 12/18/20 05:57 Anion Gap 26 mmol/L 12/18/20 05:57 BUN 36 mg/dL (7-17) H 12/18/20 05:57 Creatinine 6.0 mg/dL (0.6-1.2) H 12/18/20 05:57 Estimated GFR 8 ml/min 12/18/20 05:57 BUN/Creatinine Ratio 6 % 12/18/20 05:57 Glucose 63 mg/dL (65-100) L 12/18/20 05:57 POC Glucose 163 mg/dL (70-105) H 12/18/20 08:14 Lactic Acid 2.40 mmol/L (0.7-2.0) H* 12/16/20 10:35 Calcium 8.9 mg/dL (8.4-10.2) 12/18/20 05:57 Total Bilirubin 1.30 mg/dL (0.1-1.2) H 12/18/20 05:57 Direct Bilirubin 0.6 mg/dL (0-0.2) H 12/17/20 05:42 Indirect Bilirubin 0.3 mg/dL 12/17/20 05:42 AST 1403 units/L (5-40) H 12/18/20 05:57 ALT 1839 units/L (7-56) H 12/18/20 05:57 Alkaline Phosphatase 149 units/L (35-129) H 12/18/20 05:57 Ammonia 27.0 umol/L (25-60) 12/16/20 00:57 Total Creatine Kinase 84 units/L (30-135) 12/16/20 00:57 CK-MB (CK-2) 5.1 ng/mL (0.0-4.0) H 12/16/20 00:57 CK-MB (CK-2) Rel Index 6.0 (0-4) H 12/16/20 00:57 Troponin T 0.731 ng/mL (0.00-0.029) H* 12/16/20 05:48 Total Protein 5.6 g/dL (6.3-8.2) L 12/18/20 05:57 Albumin 2.6 g/dL (3.9-5) L 12/18/20 05:57 Albumin/Globulin Ratio 0.9 % 12/18/20 05:57 Triglycerides 104 mg/dL (2-149) 12/16/20 00:57 Cholesterol 110 mg/dL (50-199) 12/16/20 00:57 LDL Cholesterol Direct 34 mg/dL (50-130) L 12/16/20 00:57 HDL Cholesterol 64 mg/dL (40-59) H 12/16/20 00:57 Cholesterol/HDL Ratio 1.71 % 12/16/20 00:57 TSH 4.000 mlU/mL (0.270-4.200) 12/17/20 05:42 Free T4 1.54 ng/dL (0.76-1.46) H 12/16/20 00:57 Random Vancomycin 14.3 ug/mL (0-40.0) 12/18/20 05:57 Acetaminophen 5.0 ug/mL (10.0-30.0) L 12/16/20 05:48 Plasma/Serum Alcohol < 0.01 % (0-0.07) 12/16/20 00:57 Hepatitis A IgM Ab Non-reactive (NonReactive) 12/16/20 03:55 Hep Bs Antigen Non-reactive (Negative) 12/16/20 03:55 Hep B Core IgM Ab Non-reactive (NonReactive) 12/16/20 03:55 Hepatitis C Antibody Non-reactive (NonReactive) 12/16/20 03:55 Microbiology: Microbiology 12/16/20 03:55 Peripheral/Venous Blood Culture - Preliminary NO GROWTH AFTER 48 HOURS 12/16/20 03:10 Peripheral/Venous Blood Culture - Preliminary NO GROWTH AFTER 48 HOURS [place]/IV: Voiding Method Incontinent Active Medications - Current Medications Current Medications: Generic Name Dose Route Start Last Admin Trade Name Freq PRN Reason Stop Dose Admin Dextrose 0 ml 12/16/20 03:40 Dextrose 50% In Water (25gm) 50 Ml Syringe IV Q30MIN PRN Hypoglycemia Protocol Sodium Chloride 1,000 mls @ 75 mls/hr 12/16/20 03:45 12/17/20 22:24 Nacl 0.9% 1000 Ml IV 75 mls/hr DIRECT JEET Administration Cefepime HCl 2 gm in 100 mls @ 200 mls/hr 12/16/20 10:00 12/17/20 10:04 Cefepime/Ns 2 Gm/100 Ml IV 12/20/20 10:29 200 mls/hr Q24HR JEET Administration Protocol Sodium Chloride 100 mls @ 999 mls/hr 12/16/20 08:09 Nacl 0.9% IV ROSA M PRN Hypotension Ibuprofen 600 mg 12/16/20 03:40 Ibuprofen 600 Mg Tab PO Q6H PRN Pain, Mild (1-3) Insulin Human Regular 0 units 12/16/20 07:30 12/17/20 21:32 Insulin Regular, Human 100 Units/1 Ml SUB-Q Not Given ACHS JEET Protocol Magnesium Hydroxide 30 ml 12/16/20 03:40 Magnesium Hydroxide (Mom) Oral Liqd Udc PO Q4H PRN Constipation Midodrine 5 mg 12/16/20 12:00 12/17/20 16:38 Midodrine 5 Mg Tab PO 5 mg TID@0800,1200,1600 JEET Administration Morphine Sulfate 2 mg 12/16/20 03:40 Morphine 2 Mg/1 Ml Inj IV Q4H PRN Pain, Moderate (4-6) Morphine Sulfate 4 mg 12/16/20 03:40 Morphine 4 Mg/1 Ml Inj IV Q4H PRN Pain , Severe (7-10) Ondansetron HCl 4 mg 12/16/20 03:40 Ondansetron 4 Mg/2 Ml Inj IV Q8H PRN Nausea And Vomiting Sodium Chloride 10 ml 12/16/20 10:00 12/17/20 22:26 Sodium Chloride 0.9% 10 Ml Flush Syringe IV 10 ml BID JEET Administration Sodium Chloride 10 ml 12/16/20 03:40 Sodium Chloride 0.9% 10 Ml Flush Syringe IV PRN PRN LINE FLUSH Nutrition/Malnutrition Assess - Dietary Evaluation Nutrition/Malnutrition Findings: Nutrition Notes Start: 12/16/20 14:32 Freq: Status: Active Protocol: Document 12/16/20 14:32 (Rec: 12/16/20 14:38 [email or web address]) Nutrition Notes Need for Assessment generated from: MD Order Initial or Follow up Brief Note Current Diagnosis CKD (stage V CKD),Diabetes, Hypertension Other Pertinent Diagnosis AMS, Elevated LFTs Current Diet pureed Labs/Tests Na 136 K 5.4 BUN 34 Cr 5.6 Pertinent Medications NS at 75 ml/hr Height 5 ft 6 in Weight 61 kg [place] Body Weight (kg) 59.09 BMI 21.7 Subjective/Other Information MD order for diet education. Pt not appropriate at this time. RN screen for skin risk. Pt has wound on heals. [employer]OR [employer] cleared pt for pureed diet. Could not wake pt at time of visit. Burn Absent Trauma Absent GI Symptoms None Minimum of two criteria No physical signs of malnutrition #1 Nutrition Diagnosis Increased nutrient needs ( specify in comment below) Comments: protein Etiology ESRD Wound healing As Evidenced by Signs and Symptoms pt on HD pt with wounds on heel and lower leg Is patient on ventilator? No Is Patient Ambulatory and/or Out of Bed No REE-([place]-St. Jeor-confined to bed) 1387.992 Calculation Used for Recommendations [place]-St Jeor Additional Notes Protein: 1.25-1.5g/kg (76-92g) Fluid: 1 ml/kcal or per MD Nutrition Intervention Change Diet Order: Continue Goal #1 Meet at least 75% of energy and protein needs via PO Goal #2 wound healing Anticipated Discharge Needs: renal, pureed Follow-Up By: 12/18/20 Additional Comments FU for intakes and need for ONS
--- NOTE | 2020-12-18 08:29 | Event Note ---
Date: 12/18/20 Rapid response called. She is very lethargic, minimal responsive. Bld glucose 45mg/dl and BP 74/15. She was given 1 amp D50. Blood glucose now 163. BP up to 123/30 but MAP still under 65. Will give 500 ml Normal Saline and transfer to [email or web address].I discussed with Dr. Chong, nephrology.
[2020-12-18] MEDS: INSULIN REGULAR, HUMAN 100 UNITS/1 ML SUB-Q SCH ×4 (10:04→23:09)
[2020-12-18] MEDS: CEFEPIME/NS 2 GM/100 ML 2 GM/100 ML BAG IV SCH (10:05)
[2020-12-18] MEDS: MIDODRINE 5 MG TAB PO SCH ×3 (10:05→17:44)
--- NOTE | 2020-12-18 11:51 | Progress Note ---
Assessment and Plan - Patient Problems (1) Elevated troponin Current Visit: Yes Status: Acute Plan to address problem: Troponin elevation, nonspecific finding in the setting of end-stage renal failure. An echocardiogram shows a four-chamber dilated cardiomyopathy, left ventricular ejection fraction 30 to 35%. There is mild to moderate mitral stenosis, moderate to severe mitral regurgitation, moderate to severe tricuspid regurgitation and severe pulmonary hypertension. Conservative medical therapy as tolerated for cardiomyopathy and valvular heart disease. Subjective Date of service: 12/18/20 Interval history: Code called this morning. Patient was found unresponsive associated with hypotension, marked hypoglycemia, blood sugar was 45. No arrhythmias reported. Objective Vital Signs Temp Pulse Resp BP BP Pulse Ox 12/18/20 06:00 80 12/18/20 04:09 97.4 F L 16 95/21 12/18/20 04:00 80 95 12/17/20 23:20 98.5 F 83 18 97/28 91 12/17/20 22:00 86 91 12/17/20 19:17 98.6 F 80 18 111/23 99 12/17/20 16:25 98.2 F 83 18 101/46 97 12/17/20 12:49 98.0 F 85 18 89/28 97 - Physical Examination General: No Apparent Distress Cardiac: Positive: Reg Rate and Rhythm Neuro: Positive: Weakness Abdomen: Positive: Soft Skin: Positive: Clear Extremities: Absent: edema - Labs and Meds Cardiac Enzymes 12/18/20 Range/Units 05:57 AST 1403 H (5-40) units/L CBC 12/18/20 Range/Units 05:57 WBC 14.8 H (4.5-11.0) K/mm3 RBC 2.70 L (3.65-5.03) M/mm3 Hgb 8.2 L (10.1-14.3) gm/dl Hct 27.5 L (30.3-42.9) % Plt Count 87 L (140-440) K/mm3 Comprehensive Metabolic Panel 12/18/20 Range/Units 05:57 Sodium 144 (137-145) mmol/L Potassium 4.4 (3.6-5.0) mmol/L Chloride 104.7 (98-107) mmol/L Carbon Dioxide 18 L D (22-30) mmol/L BUN 36 H (7-17) mg/dL Creatinine 6.0 H (0.6-1.2) mg/dL Glucose 63 L (65-100) mg/dL Calcium 8.9 (8.4-10.2) mg/dL AST 1403 H (5-40) units/L ALT 1839 H (7-56) units/L Alkaline Phosphatase 149 H (35-129) units/L Total Protein 5.6 L (6.3-8.2) g/dL Albumin 2.6 L (3.9-5) g/dL
--- NOTE | 2020-12-18 12:26 | Progress Note ---
Assessment and Plan 1. ESRD: Patient is on maintenance hemodialysis three times a week, MWF schedule. Meds dosage based on GFR. Hemodialysis: 12/16. 2. FEN: Hyperkalemia, improved. Anion-gap metabolic acidosis, 2/2 Lactic acidosis, monitor. Monitor lytes and volume status. 3. Anemia, POA: 2/2 ESRD. Epogen with HD as needed. 4. Acute metabolic encephalopathy, POA: CT head negative. Monitor. 5. Sepsis, POA: Abx. Follow cultures. 6. Elevated Troponin: Followed by Cards. 7. H/o HTN: BP is on the lowside. Monitor BP. 8. Elevated ALT / AST: Followed by GI. 9. Hypoglycemia: Monitor. Subjective: Patient was seen and examined at the bedside. Patient was transferred to [facility] due to hypoglycemia. General Appearance: General appearance: well-developed, appears stated age, not in distress HEENT: ATNC, pupils equal Neck: trachea midline Respiratory: ctab Heart: regular, S1S2, no murmur Abdomen: soft, bowel sounds heard, not tender Integumentary: no rash, warm and dry Neurologic: lethargic, not following any command, not conversing Ext: no edema Hemodialysis access: L IJ tunnel catheter Subjective Date of service: 12/18/20 Objective - Vital Signs Vital signs: Vital Signs - 12hr 12/18/20 12/18/20 12/18/20 04:00 04:09 06:00 Temperature 97.4 F L Pulse Rate 80 80 Respiratory 16 Rate Blood Pressure 95/21 O2 Sat by Pulse 95 Oximetry - Lab 12/18/20 05:57 12/18/20 05:57 Most recent lab results Calcium 8.9 mg/dL (8.4-10.2) 12/18/20 05:57 Medications & Allergies - Medications Allergies/Adverse Reactions: Allergies No Known Allergies Allergy (Verified 12/11/20 17:11) Home Medications: Home Medications Medication Instructions Recorded Confirmed Last Taken Type Apixaban [Eliquis] 5 mg PO BID 12/16/20 12/16/20 Unknown History Aspirin [Adult Aspirin] 81 mg PO QDAY 12/16/20 12/16/20 Unknown History Escitalopram [Lexapro] 10 mg PO DAILY 12/16/20 12/16/20 Unknown History Gabapentin 300 mg PO QDAY 12/16/20 12/16/20 Unknown History Levemir Flextouch 12/16/20 Unknown History Midodrine [Proamatine] 15 mg PO TID 12/16/20 12/16/20 Unknown History NovoLOG Flexpen 12/16/20 Unknown History Pantoprazole [Protonix] 40 mg PO QDAY 12/16/20 12/16/20 Unknown History Vit B Comp No.3/Folic/C/Biotin 1 each PO DAILY 12/16/20 12/16/20 Unknown History [Nephro-Nola Rx Tablet] sevelamer HCL [Sevelamer HCl] 800 mg PO TID 12/16/20 12/16/20 Unknown History Active Medications: Generic Name Dose Route Start Last Admin Trade Name Freq PRN Reason Stop Dose Admin Dextrose 0 ml 12/16/20 03:40 12/18/20 08:23 Dextrose 50% In Water (25gm) 50 Ml Syringe IV 50 ml Q30MIN PRN Administration Hypoglycemia Protocol Sodium Chloride 1,000 mls @ 75 mls/hr 12/16/20 03:45 12/17/20 22:24 Nacl 0.9% 1000 Ml IV 75 mls/hr DIRECT JEET Administration Cefepime HCl 2 gm in 100 mls @ 200 mls/hr 12/16/20 10:00 12/18/20 10:05 Cefepime/Ns 2 Gm/100 Ml IV 12/20/20 10:29 200 mls/hr Q24HR JEET Administration Protocol Sodium Chloride 100 mls @ 999 mls/hr 12/16/20 08:09 Nacl 0.9% IV ROSA M PRN Hypotension Ibuprofen 600 mg 12/16/20 03:40 Ibuprofen 600 Mg Tab PO Q6H PRN Pain, Mild (1-3) Insulin Human Regular 0 units 12/16/20 07:30 12/18/20 10:04 Insulin Regular, Human 100 Units/1 Ml SUB-Q Not Given ACHS JEET Protocol Magnesium Hydroxide 30 ml 12/16/20 03:40 Magnesium Hydroxide (Mom) Oral Liqd Udc PO Q4H PRN Constipation Midodrine 5 mg 12/16/20 12:00 12/18/20 10:05 Midodrine 5 Mg Tab PO 5 mg TID@0800,1200,1600 JEET Administration Morphine Sulfate 2 mg 12/16/20 03:40 Morphine 2 Mg/1 Ml Inj IV Q4H PRN Pain, Moderate (4-6) Morphine Sulfate 4 mg 12/16/20 03:40 Morphine 4 Mg/1 Ml Inj IV Q4H PRN Pain , Severe (7-10) Ondansetron HCl 4 mg 12/16/20 03:40 Ondansetron 4 Mg/2 Ml Inj IV Q8H PRN Nausea And Vomiting Sodium Chloride 10 ml 12/16/20 10:00 12/18/20 10:06 Sodium Chloride 0.9% 10 Ml Flush Syringe IV 10 ml BID JEET Administration Sodium Chloride 10 ml 12/16/20 03:40 Sodium Chloride 0.9% 10 Ml Flush Syringe IV PRN PRN LINE FLUSH
--- NOTE | 2020-12-18 14:56 | Gastroenterology Progress Note ---
Assessment and Plan 1. Liver; increase lft's now improving - probable shock liver - continue follow labs - hemodynamic stability per primary team - liver serologies negative to date - no plans liver bx or other intervention - will follow for now Subjective Date of service: 12/18/20 Interval history: - no specific GI or liver related issues overnight Objective - Constitutional Vitals: Temp Pulse Resp BP Pulse Ox 97.4 F L 80 16 95/21 95 12/18/20 04:09 12/18/20 06:00 12/18/20 04:09 12/18/20 04:09 12/18/20 04:00 General appearance: no acute distress - EENT Eyes: PERRL - Respiratory Respiratory: bilateral: CTA - Cardiovascular Rhythm: regular Heart Sounds: Present: S1 & S2 - Gastrointestinal General gastrointestinal: Present: soft, non-tender, non-distended - Labs CBC & Chem 7: 12/18/20 05:57 12/18/20 05:57 Labs: Laboratory Results - last 24 hr 12/17/20 12/17/20 12/18/20 16:32 20:26 05:57 WBC RBC Hgb Hct MCV MCH MCHC RDW Plt Count Sodium Potassium Chloride Carbon Dioxide Anion Gap BUN Creatinine Estimated GFR BUN/Creatinine Ratio Glucose POC Glucose 146 H 107 H Hemoglobin A1c Calcium Total Bilirubin AST ALT Alkaline Phosphatase Total Protein Albumin Albumin/Globulin Ratio Random Vancomycin 14.3 12/18/20 12/18/20 12/18/20 05:57 05:57 05:57 WBC 14.8 H RBC 2.70 L Hgb 8.2 L Hct 27.5 L MCV 102 H MCH 30 MCHC 30 RDW 22.5 H Plt Count 87 L Sodium 144 Potassium 4.4 Chloride 104.7 Carbon Dioxide 18 L D Anion Gap 26 BUN 36 H Creatinine 6.0 H Estimated GFR 8 BUN/Creatinine Ratio 6 Glucose 63 L POC Glucose Hemoglobin A1c 7.1 H Calcium 8.9 Total Bilirubin 1.30 H AST 1403 H ALT 1839 H Alkaline Phosphatase 149 H Total Protein 5.6 L Albumin 2.6 L Albumin/Globulin Ratio 0.9 Random Vancomycin 12/18/20 12/18/20 12/18/20 08:03 08:14 10:04 WBC RBC Hgb Hct MCV MCH MCHC RDW Plt Count Sodium Potassium Chloride Carbon Dioxide Anion Gap BUN Creatinine Estimated GFR BUN/Creatinine Ratio Glucose POC Glucose 45 L 163 H 129 H Hemoglobin A1c Calcium Total Bilirubin AST ALT Alkaline Phosphatase Total Protein Albumin Albumin/Globulin Ratio Random Vancomycin 12/18/20 11:40 WBC RBC Hgb Hct MCV MCH MCHC RDW Plt Count Sodium Potassium Chloride Carbon Dioxide Anion Gap BUN Creatinine Estimated GFR BUN/Creatinine Ratio Glucose POC Glucose 128 H Hemoglobin A1c Calcium Total Bilirubin AST ALT Alkaline Phosphatase Total Protein Albumin Albumin/Globulin Ratio Random Vancomycin
[2020-12-18] MEDS: EPOETIN ALFA-EPBX 10,000 UNIT/1 ML VIAL SUB-Q PRN (19:08)
[2020-12-19 07:39] LABS: Hematocrit 27.8 % (30.3-42.9); Hemoglobin 8.5 gm/dl (10.1-14.3); Mean Corpuscular HGB Conc 31 % (30-34); Mean Corpuscular Volume 101 fl (79-97); Red Blood Count 2.76 M/mm3 (3.65-5.03)
[2020-12-19 07:57] LABS: Albumin 2.7 g/dL (3.9-5); Bilirubin,Direct 1.2 mg/dL (0-0.2); Calcium 9.5 mg/dL (8.4-10.2)
[2020-12-19 08:33] LABS: Platelet Count 82 K/mm3 (140-440); Red Cell Distribution Width 22.3 % (13.2-15.2)
--- NOTE | 2020-12-19 08:44 | Progress Note ---
Assessment and Plan Assessment and plan: (1) Altered mental status Current Visit: Yes Status: Acute Plan to address problem: Possibly secondary to multiple underlying problems including possible sepsis, end-stage renal disease with hyperkalemia and elevated liver enzymes. Will monitor mental status. (2) ESRD (end stage renal disease) Current Visit: No Status: Acute Plan to address problem: We will place consult to nephrology for evaluation. (3) Hyperkalemia Current Visit: No Status: Acute Plan to address problem: Possibly secondary to the end-stage renal disease. Patient will be given Kayexalate, insulin/glucose, sodium bicarb and will monitor potassium levels. (4) Elevated liver enzymes Current Visit: Yes Status: Acute Plan to address problem: Etiology is unclear. We will request gastroenterology evaluation. We will also check hepatitis profile. (5) Elevated troponin Current Visit: Yes Status: Acute Plan to address problem: Possibly secondary to the underlying end-stage renal disease versus sepsis. However we trend cardiac enzymes and request cardiology evaluation and recommendations. (6) Diabetes mellitus Current Visit: Yes Status: Acute Plan to address problem: Patient placed on sliding scale insulin. We will monitor Accu-Cheks closely. (7) DVT prophylaxis Current Visit: Yes Status: Acute Plan to address problem: Patient currently on anticoagulation with Eliquis. (8) Full code status Current Visit: Yes Status: Acute Plan to address problem: Patient is full code. 12/17/20 Patient with ESRD on hemodialysis presents with altered mental status, acute metabolic encephalopathy. Also has markedly elevated AST and ALT GI consulted. Her LFTs were normal last admission just 5 days ago. 12/18/20 Patient with ESRD on hemodialysis. Rapid response called this morning. She is very lethargic, minimal responsive. Bld glucose 45mg/dl and BP 74/15. She was given 1 amp D50. Blood glucose now 163. BP up to 123/30 but MAP still under 65. Will give 500 ml Normal Saline and transfer to IM.I discussed with Dr. Chong, Nephrology. LFTs improving though still very high. 12/19/20 Patient with ESRD on hemodialysis. Rapid response called yesterday for hypoglycemia and hypotension, so transferred to IM. Blood glucose normalized. BP improved. 12/11/ History Interval history: Altered mental status Rapid response called 12/18 morning because altered mental status, minimal responsve, low blood glucose of 45mg/dl and BP 74/15, so transferred to [facility] Hospitalist Physical - Physical exam Narrative exam: Gen: Not in acute distress, HEENT: Normocephalic, atraumatic Neck : supple, no JVD Lungs:clear to auscultation bilaterally, no wheeze Heart:S1 and S2 reg, no murmurs, rubs or gallop Abd: Soft , non tender, non distended, normal bowel sounds Ext: No edema, no clubbing, no cyanosis Neuro: lethargic, minimal responsive, opes eyes - Constitutional Vitals: Temp Pulse Resp BP Pulse Ox 99.0 F 90 17 121/99 100 12/19/20 04:00 12/19/20 07:00 12/19/20 07:00 12/19/20 07:00 12/19/20 07:49 General appearance: Present: no acute distress HEART Score - HEART Score Troponin: Troponin T 0.731 ng/mL (0.00-0.029) H* 12/16/20 05:48 Results - Labs CBC & Chem 7: 12/19/20 06:59 12/19/20 06:59 Labs: Laboratory Last Values WBC 12.1 K/mm3 (4.5-11.0) H 12/19/20 06:59 RBC 2.76 M/mm3 (3.65-5.03) L 12/19/20 06:59 Hgb 8.5 gm/dl (10.1-14.3) L 12/19/20 06:59 Hct 27.8 % (30.3-42.9) L 12/19/20 06:59 MCV 101 fl (79-97) H 12/19/20 06:59 MCH 31 pg (28-32) 12/19/20 06:59 MCHC 31 % (30-34) 12/19/20 06:59 RDW 22.3 % (13.2-15.2) H 12/19/20 06:59 Plt Count 82 K/mm3 (140-440) L 12/19/20 06:59 Lymph % (Auto) 9.7 % (13.4-35.0) L 12/17/20 05:42 [place] % (Auto) 8.3 % (0.0-7.3) H 12/17/20 05:42 Eos % (Auto) 3.0 % (0.0-4.3) 12/17/20 05:42 Baso % (Auto) 0.8 % (0.0-1.8) 12/17/20 05:42 Lymph # (Auto) 1.2 K/mm3 (1.2-5.4) 12/17/20 05:42 [place] # (Auto) 1.0 K/mm3 (0.0-0.8) H 12/17/20 05:42 Eos # (Auto) 0.4 K/mm3 (0.0-0.4) 12/17/20 05:42 Baso # (Auto) 0.1 K/mm3 (0.0-0.1) 12/17/20 05:42 Seg Neutrophils % 78.2 % (40.0-70.0) H 12/17/20 05:42 Seg Neutrophils # 9.4 K/mm3 (1.8-7.7) H 12/17/20 05:42 PT 26.3 Sec. (12.2-14.9) H 12/17/20 05:42 INR 2.36 (0.87-1.13) H 12/17/20 05:42 APTT 39.9 Sec. (24.2-36.6) H 12/16/20 00:57 Thrombin Time 16.9 Sec. (15.1-19.6) 12/16/20 00:57 VBG pH 7.334 (7.320-7.420) 12/16/20 00:57 Sodium 147 mmol/L (137-145) H 12/19/20 06:59 Potassium 3.6 mmol/L (3.6-5.0) 12/19/20 06:59 Chloride 106.7 mmol/L (98-107) 12/19/20 06:59 Carbon Dioxide 25 mmol/L (22-30) D 12/19/20 06:59 Anion Gap 19 mmol/L 12/19/20 06:59 BUN 21 mg/dL (7-17) H 12/19/20 06:59 Creatinine 3.9 mg/dL (0.6-1.2) H 12/19/20 06:59 Estimated GFR 14 ml/min 12/19/20 06:59 BUN/Creatinine Ratio 5 % 12/19/20 06:59 Glucose 144 mg/dL (65-100) H 12/19/20 06:59 POC Glucose 139 mg/dL (70-105) H 12/19/20 08:38 Hemoglobin A1c 7.1 % (4-6) H 12/18/20 05:57 Lactic Acid 2.40 mmol/L (0.7-2.0) H* 12/16/20 10:35 Calcium 9.5 mg/dL (8.4-10.2) 12/19/20 06:59 Total Bilirubin 1.70 mg/dL (0.1-1.2) H 12/19/20 06:59 Direct Bilirubin 1.2 mg/dL (0-0.2) H 12/19/20 06:59 Indirect Bilirubin 0.5 mg/dL 12/19/20 06:59 AST 871 units/L (5-40) H 12/19/20 06:59 ALT 1552 units/L (7-56) H 12/19/20 06:59 Alkaline Phosphatase 146 units/L (35-129) H 12/19/20 06:59 Ammonia 27.0 umol/L (25-60) 12/16/20 00:57 Total Creatine Kinase 84 units/L (30-135) 12/16/20 00:57 CK-MB (CK-2) 5.1 ng/mL (0.0-4.0) H 12/16/20 00:57 CK-MB (CK-2) Rel Index 6.0 (0-4) H 12/16/20 00:57 Troponin T 0.731 ng/mL (0.00-0.029) H* 12/16/20 05:48 Total Protein 5.6 g/dL (6.3-8.2) L 12/19/20 06:59 Albumin 2.7 g/dL (3.9-5) L 12/19/20 06:59 Albumin/Globulin Ratio 0.9 % 12/19/20 06:59 Triglycerides 104 mg/dL (2-149) 12/16/20 00:57 Cholesterol 110 mg/dL (50-199) 12/16/20 00:57 LDL Cholesterol Direct 34 mg/dL (50-130) L 12/16/20 00:57 HDL Cholesterol 64 mg/dL (40-59) H 12/16/20 00:57 Cholesterol/HDL Ratio 1.71 % 12/16/20 00:57 TSH 4.000 mlU/mL (0.270-4.200) 12/17/20 05:42 Free T4 1.54 ng/dL (0.76-1.46) H 12/16/20 00:57 Random Vancomycin 14.3 ug/mL (0-40.0) 12/18/20 05:57 Acetaminophen 5.0 ug/mL (10.0-30.0) L 12/16/20 05:48 Plasma/Serum Alcohol < 0.01 % (0-0.07) 12/16/20 00:57 Hepatitis A IgM Ab Non-reactive (NonReactive) 12/16/20 03:55 Hep Bs Antigen Non-reactive (Negative) 12/16/20 03:55 Hep B Core IgM Ab Non-reactive (NonReactive) 12/16/20 03:55 Hepatitis C Antibody Non-reactive (NonReactive) 12/16/20 03:55 Microbiology: Microbiology 12/16/20 03:55 Peripheral/Venous Blood Culture - Preliminary NO GROWTH AFTER 72 HOURS 12/16/20 03:10 Peripheral/Venous Blood Culture - Preliminary NO GROWTH AFTER 72 HOURS [place]/IV: Voiding Method Incontinent Active Medications - Current Medications Current Medications: Generic Name Dose Route Start Last Admin Trade Name Freq PRN Reason Stop Dose Admin Dextrose 0 ml 12/16/20 03:40 12/18/20 08:23 Dextrose 50% In Water (25gm) 50 Ml Syringe IV 50 ml Q30MIN PRN Administration Hypoglycemia Protocol Sodium Chloride 1,000 mls @ 75 mls/hr 12/16/20 03:45 12/17/20 22:24 Nacl 0.9% 1000 Ml IV 75 mls/hr DIRECT JEET Administration Cefepime HCl 2 gm in 100 mls @ 200 mls/hr 12/16/20 10:00 12/18/20 17:44 Cefepime/Ns 2 Gm/100 Ml IV 12/20/20 10:29 Infused Q24HR JEET Infusion Protocol Sodium Chloride 100 mls @ 999 mls/hr 12/16/20 08:09 Nacl 0.9% IV ROSA M PRN Hypotension Vancomycin HCl 1,250 mg/ 275 mls @ 166.667 mls/hr 12/19/20 18:00 Sodium Chloride IV 12/19/20 19:38 ONCE ONE Ibuprofen 600 mg 12/16/20 03:40 Ibuprofen 600 Mg Tab PO Q6H PRN Pain, Mild (1-3) Insulin Human Regular 0 units 12/16/20 07:30 12/18/20 23:09 Insulin Regular, Human 100 Units/1 Ml SUB-Q Not Given ACHS JEET Protocol Magnesium Hydroxide 30 ml 12/16/20 03:40 Magnesium Hydroxide (Mom) Oral Liqd Udc PO Q4H PRN Constipation Midodrine 5 mg 12/16/20 12:00 12/18/20 17:44 Midodrine 5 Mg Tab PO 5 mg TID@0800,1200,1600 JEET Administration Morphine Sulfate 0.5 mg 12/18/20 13:00 Morphine 2 Mg/1 Ml Inj IV Q6H PRN Pain, Moderate (4-6) Ondansetron HCl 4 mg 12/16/20 03:40 Ondansetron 4 Mg/2 Ml Inj IV Q8H PRN Nausea And Vomiting Sodium Chloride 10 ml 12/16/20 10:00 12/18/20 23:15 Sodium Chloride 0.9% 10 Ml Flush Syringe IV 10 ml BID JEET Administration Sodium Chloride 10 ml 12/16/20 03:40 Sodium Chloride 0.9% 10 Ml Flush Syringe IV PRN PRN LINE FLUSH Nutrition/Malnutrition Assess - Dietary Evaluation Nutrition/Malnutrition Findings: Nutrition Notes Start: 12/16/20 14:32 Freq: Status: Active Protocol: Document 12/18/20 12:32 (Rec: 12/18/20 12:33 [id number]) Nutrition Notes Initial or Follow up Brief Note Current Diagnosis CKD (stage V CKD),Diabetes, Hypertension Other Pertinent Diagnosis AMS, Elevated LFTs Current Diet NPO Subjective/Other Information FU for intakes. Unable to wake pt. No intakes in chart. Nutrition Intervention Follow-Up By: 12/20/20 Additional Comments FU for intakes and need for ONS
[2020-12-19] MEDS: INSULIN REGULAR, HUMAN 100 UNITS/1 ML SUB-Q SCH ×4 (08:53→22:30)
--- NOTE | 2020-12-19 09:32 | Progress Note ---
Assessment and Plan - Patient Problems (1) Elevated troponin Current Visit: Yes Status: Acute Plan to address problem: Troponin elevation, nonspecific finding in the setting of end-stage renal failure. An echocardiogram shows a four-chamber dilated cardiomyopathy, left ventricular ejection fraction 30 to 35%. There is mild to moderate mitral stenosis, moderate to severe mitral regurgitation, moderate to severe tricuspid regurgitation and severe pulmonary hypertension. Conservative medical therapy as tolerated for cardiomyopathy and valvular heart disease. Subjective Date of service: 12/19/20 Interval history: Patient opens eyes when her name is called. Objective Vital Signs Temp Pulse Pulse Resp Resp BP BP 12/19/20 09:00 91 H 15 142/38 12/19/20 08:00 94 H 15 143/27 12/19/20 07:49 12/19/20 07:00 90 17 121/99 12/19/20 06:00 88 15 20 122/41 12/19/20 05:00 87 13 136/40 12/19/20 04:00 99.0 F 91 H 91 H 13 141/40 12/19/20 03:00 87 16 131/37 12/19/20 02:00 88 17 140/38 12/19/20 01:00 86 12 139/35 12/19/20 00:20 89 12/19/20 00:00 86 16 111/36 12/18/20 23:50 97.7 F 12/18/20 23:28 87 17 121/34 12/18/20 23:00 91 H 20 121/34 12/18/20 22:00 84 14 109/28 12/18/20 21:00 88 15 119/40 12/18/20 20:20 89 12/18/20 20:16 12/18/20 20:00 97.3 F L 89 15 133/50 12/18/20 19:00 89 12 133/42 12/18/20 18:50 87 16 12/18/20 18:45 98.2 F 89 17 133/49 12/18/20 18:30 85 126/42 12/18/20 18:15 88 131/41 12/18/20 18:00 92 H 130/58 12/18/20 17:45 85 130/39 12/18/20 17:30 85 125/41 12/18/20 17:15 85 129/40 12/18/20 17:00 86 128/40 12/18/20 16:45 83 125/33 12/18/20 16:30 78 128/33 12/18/20 16:15 83 126/42 12/18/20 16:00 78 128/43 12/18/20 15:45 79 123/39 12/18/20 15:30 78 123/37 12/18/20 15:20 98.0 F 81 14 131/34 12/18/20 14:00 80 12/18/20 13:00 75 13 109/28 12/18/20 12:00 80 15 111/32 12/18/20 11:50 82 16 112/68 12/18/20 11:40 82 17 112/74 12/18/20 11:30 82 14 112/74 12/18/20 11:20 81 14 117/43 12/18/20 11:10 80 14 122/29 12/18/20 11:00 77 13 122/29 12/18/20 10:50 78 14 122/38 12/18/20 10:40 77 15 122/38 12/18/20 10:30 80 15 106/23 12/18/20 10:20 75 15 106/23 12/18/20 10:10 76 14 106/23 12/18/20 10:00 75 15 106/23 12/18/20 09:50 80 14 107/28 12/18/20 09:40 76 15 Pulse Ox Pulse Ox 12/19/20 09:00 100 12/19/20 08:00 100 12/19/20 07:49 100 12/19/20 07:00 100 12/19/20 06:00 98 12/19/20 05:00 100 12/19/20 04:00 100 12/19/20 03:00 100 12/19/20 02:00 100 12/19/20 01:00 100 12/19/20 00:20 12/19/20 00:00 100 12/18/20 23:50 12/18/20 23:28 100 12/18/20 23:00 100 12/18/20 22:00 99 12/18/20 21:00 100 12/18/20 20:20 12/18/20 20:16 97 12/18/20 20:00 100 12/18/20 19:00 100 12/18/20 18:50 12/18/20 18:45 12/18/20 18:30 12/18/20 18:15 12/18/20 18:00 12/18/20 17:45 12/18/20 17:30 12/18/20 17:15 12/18/20 17:00 12/18/20 16:45 12/18/20 16:30 12/18/20 16:15 12/18/20 16:00 12/18/20 15:45 12/18/20 15:30 12/18/20 15:20 12/18/20 14:00 12/18/20 13:00 12/18/20 12:00 12/18/20 11:50 12/18/20 11:40 12/18/20 11:30 12/18/20 11:20 12/18/20 11:10 12/18/20 11:00 12/18/20 10:50 12/18/20 10:40 12/18/20 10:30 12/18/20 10:20 12/18/20 10:10 12/18/20 10:00 12/18/20 09:50 12/18/20 09:40 100 - Physical Examination General: No Apparent Distress HEENT: Positive: PERRL Neck: Positive: neck supple Cardiac: Positive: Reg Rate and Rhythm Lungs: Positive: Decreased Breath Sounds Extremities: Absent: edema - Labs and Meds Cardiac Enzymes 12/19/20 Range/Units 06:59 AST 871 H (5-40) units/L CBC 12/19/20 Range/Units 06:59 WBC 12.1 H (4.5-11.0) K/mm3 RBC 2.76 L (3.65-5.03) M/mm3 Hgb 8.5 L (10.1-14.3) gm/dl Hct 27.8 L (30.3-42.9) % Plt Count 82 L (140-440) K/mm3 Comprehensive Metabolic Panel 12/19/20 Range/Units 06:59 Sodium 147 H (137-145) mmol/L Potassium 3.6 (3.6-5.0) mmol/L Chloride 106.7 (98-107) mmol/L Carbon Dioxide 25 D (22-30) mmol/L BUN 21 H (7-17) mg/dL Creatinine 3.9 H (0.6-1.2) mg/dL Glucose 144 H (65-100) mg/dL Calcium 9.5 (8.4-10.2) mg/dL Direct Bilirubin 1.2 H (0-0.2) mg/dL Indirect Bilirubin 0.5 mg/dL AST 871 H (5-40) units/L ALT 1552 H (7-56) units/L Alkaline Phosphatase 146 H (35-129) units/L Total Protein 5.6 L (6.3-8.2) g/dL Albumin 2.7 L (3.9-5) g/dL
[2020-12-19] MEDS: CEFEPIME/NS 2 GM/100 ML 2 GM/100 ML BAG IV SCH (11:24)
[2020-12-19] MEDS: MIDODRINE 5 MG TAB PO SCH ×3 (11:25→16:29)
[2020-12-19 11:58] LABS: ANA Screen, IFA Positive (Negative)
--- NOTE | 2020-12-19 12:03 | Progress Note ---
Assessment and Plan 1. ESRD: Patient is on maintenance hemodialysis three times a week, MWF schedule. Meds dosage based on GFR. Hemodialysis: 12/16, 12/18. 2. FEN: Hyperkalemia, improved. Anion-gap metabolic acidosis, 2/2 Lactic acidosis, monitor. Monitor lytes and volume status. 3. Anemia, POA: 2/2 ESRD. Epogen with HD as needed. 4. Acute metabolic encephalopathy, POA: CT head negative. Monitor. 5. Sepsis, POA: Abx. Follow cultures. 6. Elevated Troponin: Followed by Cards. 7. H/o HTN: BP was on the lowside. Monitor BP. 8. Elevated ALT / AST: Followed by GI. 9. Hypoglycemia: Monitor. Subjective: Patient was seen and examined at the bedside. General Appearance: General appearance: well-developed, appears stated age, not in distress HEENT: ATNC, pupils equal Neck: trachea midline Respiratory: ctab Heart: regular, S1S2, no murmur Abdomen: soft, bowel sounds heard, not tender Integumentary: no rash, warm and dry Neurologic: lethargic, not following any command, not conversing Ext: no edema Hemodialysis access: L IJ tunnel catheter Subjective Date of service: 12/19/20 Objective - Vital Signs Vital signs: Vital Signs - 12hr 12/19/20 12/19/20 12/19/20 00:20 01:00 02:00 Temperature Pulse Rate 89 86 88 Pulse Rate [ From Monitor] Respiratory 12 17 Rate Respiratory Rate [ Generalized] Blood Pressure 139/35 140/38 O2 Sat by Pulse 100 100 Oximetry 12/19/20 12/19/20 12/19/20 03:00 04:00 05:00 Temperature 99.0 F Pulse Rate 87 91 H 87 Pulse Rate [ 91 H From Monitor] Respiratory 16 13 13 Rate Respiratory Rate [ Generalized] Blood Pressure 131/37 141/40 136/40 O2 Sat by Pulse 100 100 100 Oximetry 12/19/20 12/19/20 12/19/20 06:00 07:00 07:49 Temperature Pulse Rate 88 90 Pulse Rate [ From Monitor] Respiratory 15 17 Rate Respiratory 20 Rate [ Generalized] Blood Pressure 122/41 121/99 O2 Sat by Pulse 98 100 100 Oximetry 12/19/20 12/19/20 12/19/20 08:00 09:00 10:00 Temperature 97.9 F Pulse Rate 94 H 91 H 83 Pulse Rate [ From Monitor] Respiratory 15 15 14 Rate Respiratory Rate [ Generalized] Blood Pressure 143/27 142/38 132/26 O2 Sat by Pulse 100 100 98 Oximetry - Lab 12/19/20 06:59 12/19/20 06:59 Most recent lab results Calcium 9.5 mg/dL (8.4-10.2) 12/19/20 06:59 Medications & Allergies - Medications Allergies/Adverse Reactions: Allergies No Known Allergies Allergy (Verified 12/11/20 17:11) Home Medications: Home Medications Medication Instructions Recorded Confirmed Last Taken Type Apixaban [Eliquis] 5 mg PO BID 12/16/20 12/16/20 Unknown History Aspirin [Adult Aspirin] 81 mg PO QDAY 12/16/20 12/16/20 Unknown History Escitalopram [Lexapro] 10 mg PO DAILY 12/16/20 12/16/20 Unknown History Gabapentin 300 mg PO QDAY 12/16/20 12/16/20 Unknown History Levemir Flextouch 12/16/20 Unknown History Midodrine [Proamatine] 15 mg PO TID 12/16/20 12/16/20 Unknown History NovoLOG Flexpen 12/16/20 Unknown History Pantoprazole [Protonix] 40 mg PO QDAY 12/16/20 12/16/20 Unknown History Vit B Comp No.3/Folic/C/Biotin 1 each PO DAILY 12/16/20 12/16/20 Unknown History [Nephro-Nola Rx Tablet] sevelamer HCL [Sevelamer HCl] 800 mg PO TID 12/16/20 12/16/20 Unknown History Active Medications: Generic Name Dose Route Start Last Admin Trade Name Dimitris PRN Reason Stop Dose Admin Dextrose 0 ml 12/16/20 03:40 12/18/20 08:23 Dextrose 50% In Water (25gm) 50 Ml Syringe IV 50 ml Q30MIN PRN Administration Hypoglycemia Protocol Sodium Chloride 1,000 mls @ 75 mls/hr 12/16/20 03:45 12/17/20 22:24 Nacl 0.9% 1000 Ml IV 75 mls/hr DIRECT JEET Administration Cefepime HCl 2 gm in 100 mls @ 200 mls/hr 12/16/20 10:00 12/19/20 11:24 Cefepime/Ns 2 Gm/100 Ml IV 12/20/20 10:29 200 mls/hr Q24HR JEET Administration Protocol Sodium Chloride 100 mls @ 999 mls/hr 12/16/20 08:09 Nacl 0.9% IV ROSA M PRN Hypotension Vancomycin HCl 1 gm in 250 mls @ 151.515 mls/hr 12/19/20 14:00 Vancomycin/Ns 1 Gm/250 Ml IV 12/19/20 15:38 ONCE ONE Ibuprofen 600 mg 12/16/20 03:40 Ibuprofen 600 Mg Tab PO Q6H PRN Pain, Mild (1-3) Insulin Human Regular 0 units 12/16/20 07:30 12/19/20 08:53 Insulin Regular, Human 100 Units/1 Ml SUB-Q Not Given ACHS [facility] Protocol Magnesium Hydroxide 30 ml 12/16/20 03:40 Magnesium Hydroxide (Mom) Oral Liqd Udc PO Q4H PRN Constipation Midodrine 5 mg 12/16/20 12:00 12/19/20 11:25 Midodrine 5 Mg Tab PO Not Given TID@0800,1200,1600 [facility] Morphine Sulfate 0.5 mg 12/18/20 13:00 Morphine 2 Mg/1 Ml Inj IV Q6H PRN Pain, Moderate (4-6) Ondansetron HCl 4 mg 12/16/20 03:40 Ondansetron 4 Mg/2 Ml Inj IV Q8H PRN Nausea And Vomiting Sodium Chloride 10 ml 12/16/20 10:00 12/19/20 11:24 Sodium Chloride 0.9% 10 Ml Flush Syringe IV 10 ml BID JEET Administration Sodium Chloride 10 ml 12/16/20 03:40 Sodium Chloride 0.9% 10 Ml Flush Syringe IV PRN PRN LINE FLUSH
--- NOTE | 2020-12-19 13:38 | Gastroenterology Progress Note ---
Assessment and Plan 1. Liver; increase lft's now improving - probable shock liver - continue follow labs - hemodynamic stability per primary team - liver serologies negative to date - no plans liver bx or other intervention - will follow for now Subjective Date of service: 12/19/20 Interval history: - no GI complaints overnight Objective - Constitutional Vitals: Temp Pulse Resp BP Pulse Ox 97.8 F 90 33 H 120/33 100 12/19/20 12:00 12/19/20 13:00 12/19/20 13:00 12/19/20 13:00 12/19/20 13:00 General appearance: no acute distress - EENT Eyes: PERRL - Respiratory Respiratory: bilateral: rhonchi - Cardiovascular Rhythm: regular Heart Sounds: Present: S1 & S2 - Gastrointestinal General gastrointestinal: Present: soft, non-tender, non-distended - Labs CBC & Chem 7: 12/19/20 06:59 12/19/20 06:59 Labs: Laboratory Results - last 24 hr 12/17/20 12/18/20 12/18/20 05:42 18:00 21:40 WBC RBC Hgb Hct MCV MCH MCHC RDW Plt Count Sodium Potassium Chloride Carbon Dioxide Anion Gap BUN Creatinine Estimated GFR BUN/Creatinine Ratio Glucose POC Glucose 161 H 138 H Calcium Total Bilirubin Direct Bilirubin Indirect Bilirubin AST ALT Alkaline Phosphatase Total Protein Albumin Albumin/Globulin Ratio JULIA Screen Positive H 12/19/20 12/19/20 12/19/20 01:26 05:49 06:59 WBC 12.1 H RBC 2.76 L Hgb 8.5 L Hct 27.8 L MCV 101 H MCH 31 MCHC 31 RDW 22.3 H Plt Count 82 L Sodium Potassium Chloride Carbon Dioxide Anion Gap BUN Creatinine Estimated GFR BUN/Creatinine Ratio Glucose POC Glucose 148 H 136 H Calcium Total Bilirubin Direct Bilirubin Indirect Bilirubin AST ALT Alkaline Phosphatase Total Protein Albumin Albumin/Globulin Ratio JULIA Screen 12/19/20 12/19/20 12/19/20 06:59 08:38 11:45 WBC RBC Hgb Hct MCV MCH MCHC RDW Plt Count Sodium 147 H Potassium 3.6 Chloride 106.7 Carbon Dioxide 25 D Anion Gap 19 BUN 21 H Creatinine 3.9 H Estimated GFR 14 BUN/Creatinine Ratio 5 Glucose 144 H POC Glucose 139 H 138 H Calcium 9.5 Total Bilirubin 1.70 H Direct Bilirubin 1.2 H Indirect Bilirubin 0.5 AST 871 H ALT 1552 H Alkaline Phosphatase 146 H Total Protein 5.6 L Albumin 2.7 L Albumin/Globulin Ratio 0.9 JULIA Screen
[2020-12-19] MEDS ORDERED: VANCOMYCIN/NS 1 GM/250 ML 1 GM/250 ML BAG IV ONE (14:00)
[2020-12-20] MEDS: INSULIN REGULAR, HUMAN 100 UNITS/1 ML SUB-Q SCH ×4 (08:10→21:27)
[2020-12-20] MEDS: MIDODRINE 5 MG TAB PO SCH ×3 (08:10→17:21)
--- NOTE | 2020-12-20 08:58 | Progress Note ---
Assessment and Plan Assessment and plan: (1) Altered mental status Current Visit: Yes Status: Acute Plan to address problem: Possibly secondary to multiple underlying problems including possible sepsis, end-stage renal disease with hyperkalemia and elevated liver enzymes. Will monitor mental status. (2) ESRD (end stage renal disease) Current Visit: No Status: Acute Plan to address problem: We will place consult to nephrology for evaluation. (3) Hyperkalemia Current Visit: No Status: Acute Plan to address problem: Possibly secondary to the end-stage renal disease. Patient will be given Kayexalate, insulin/glucose, sodium bicarb and will monitor potassium levels. (4) Elevated liver enzymes Current Visit: Yes Status: Acute Plan to address problem: Etiology is unclear. We will request gastroenterology evaluation. We will also check hepatitis profile. (5) Elevated troponin Current Visit: Yes Status: Acute Plan to address problem: Possibly secondary to the underlying end-stage renal disease versus sepsis. However we trend cardiac enzymes and request cardiology evaluation and recommendations. (6) Diabetes mellitus Current Visit: Yes Status: Acute Plan to address problem: Patient placed on sliding scale insulin. We will monitor Accu-Cheks closely. (7) DVT prophylaxis Current Visit: Yes Status: Acute Plan to address problem: Patient currently on anticoagulation with Eliquis. (8) Full code status Current Visit: Yes Status: Acute Plan to address problem: Patient is full code. 12/17/20 Patient with ESRD on hemodialysis presents with altered mental status, acute metabolic encephalopathy. Also has markedly elevated AST and ALT GI consulted. Her LFTs were normal last admission just 5 days ago. 12/18/20 Patient with ESRD on hemodialysis. Rapid response called this morning. She is very lethargic, minimal responsive. Bld glucose 45mg/dl and BP 74/15. She was given 1 amp D50. Blood glucose now 163. BP up to 123/30 but MAP still under 65. Will give 500 ml Normal Saline and transfer to [facility].I discussed with Dr. Chong, Nephrology. LFTs improving though still very high. 12/19/20 Patient with ESRD on hemodialysis. Rapid response called yesterday for hypoglycemia and hypotension, so transferred to [facility]. Blood glucose normalized. BP improved. 12/20/20 Patient with ESRD on hemodialysis. Presented with altered mental status. Was transferred to [facility] on 12/18/20. Still has altered mental status, very lethargic. MRI ordered. Neurology consulted. 12/11/ History Interval history: Still Altered mental status Rapid response called 12/18 morning because altered mental status, minimal responsve, low blood glucose of 45mg/dl and BP 74/15, so transferred to [facility] Hospitalist Physical - Physical exam Narrative exam: Gen: Not in acute distress, HEENT: Normocephalic, atraumatic Neck : supple, no JVD Lungs:clear to auscultation bilaterally, no wheeze Heart:S1 and S2 reg, no murmurs, rubs or gallop Abd: Soft , non tender, non distended, normal bowel sounds Ext: No edema, no clubbing, no cyanosis Neuro: lethargic, - Constitutional Vitals: Temp Pulse Resp BP Pulse Ox 98.8 F 83 14 126/43 97 12/20/20 08:09 12/20/20 08:45 12/20/20 08:09 12/20/20 08:45 12/20/20 08:09 General appearance: Present: no acute distress HEART Score - HEART Score Troponin: Troponin T 0.731 ng/mL (0.00-0.029) H* 12/16/20 05:48 Results - Labs CBC & Chem 7: 12/20/20 10:26 12/20/20 05:48 Labs: Laboratory Last Values WBC 12.1 K/mm3 (4.5-11.0) H 12/19/20 06:59 RBC 2.76 M/mm3 (3.65-5.03) L 12/19/20 06:59 Hgb 8.5 gm/dl (10.1-14.3) L 12/19/20 06:59 Hct 27.8 % (30.3-42.9) L 12/19/20 06:59 MCV 101 fl (79-97) H 12/19/20 06:59 MCH 31 pg (28-32) 12/19/20 06:59 MCHC 31 % (30-34) 12/19/20 06:59 RDW 22.3 % (13.2-15.2) H 12/19/20 06:59 Plt Count 82 K/mm3 (140-440) L 12/19/20 06:59 Lymph % (Auto) 9.7 % (13.4-35.0) L 12/17/20 05:42 Milam % (Auto) 8.3 % (0.0-7.3) H 12/17/20 05:42 Eos % (Auto) 3.0 % (0.0-4.3) 12/17/20 05:42 Baso % (Auto) 0.8 % (0.0-1.8) 12/17/20 05:42 Lymph # (Auto) 1.2 K/mm3 (1.2-5.4) 12/17/20 05:42 Milam # (Auto) 1.0 K/mm3 (0.0-0.8) H 12/17/20 05:42 Eos # (Auto) 0.4 K/mm3 (0.0-0.4) 12/17/20 05:42 Baso # (Auto) 0.1 K/mm3 (0.0-0.1) 12/17/20 05:42 Seg Neutrophils % 78.2 % (40.0-70.0) H 12/17/20 05:42 Seg Neutrophils # 9.4 K/mm3 (1.8-7.7) H 12/17/20 05:42 PT 26.3 Sec. (12.2-14.9) H 12/17/20 05:42 INR 2.36 (0.87-1.13) H 12/17/20 05:42 APTT 39.9 Sec. (24.2-36.6) H 12/16/20 00:57 Thrombin Time 16.9 Sec. (15.1-19.6) 12/16/20 00:57 VBG pH 7.334 (7.320-7.420) 12/16/20 00:57 Sodium 146 mmol/L (137-145) H 12/20/20 05:48 Potassium 3.8 mmol/L (3.6-5.0) 12/20/20 05:48 Chloride 109.6 mmol/L (98-107) H 12/20/20 05:48 Carbon Dioxide 21 mmol/L (22-30) L 12/20/20 05:48 Anion Gap 19 mmol/L 12/20/20 05:48 BUN 32 mg/dL (7-17) H 12/20/20 05:48 Creatinine 5.5 mg/dL (0.6-1.2) H 12/20/20 05:48 Estimated GFR 9 ml/min 12/20/20 05:48 BUN/Creatinine Ratio 6 % 12/20/20 05:48 Glucose 124 mg/dL (65-100) H 12/20/20 05:48 POC Glucose 125 mg/dL (70-105) H 12/20/20 05:46 Hemoglobin A1c 7.1 % (4-6) H 12/18/20 05:57 Lactic Acid 2.40 mmol/L (0.7-2.0) H* 12/16/20 10:35 Calcium 9.0 mg/dL (8.4-10.2) 12/20/20 05:48 Total Bilirubin 1.70 mg/dL (0.1-1.2) H 12/19/20 06:59 Direct Bilirubin 1.2 mg/dL (0-0.2) H 12/19/20 06:59 Indirect Bilirubin 0.5 mg/dL 12/19/20 06:59 AST 871 units/L (5-40) H 12/19/20 06:59 ALT 1552 units/L (7-56) H 12/19/20 06:59 Alkaline Phosphatase 146 units/L (35-129) H 12/19/20 06:59 Ammonia 27.0 umol/L (25-60) 12/16/20 00:57 Total Creatine Kinase 84 units/L (30-135) 12/16/20 00:57 CK-MB (CK-2) 5.1 ng/mL (0.0-4.0) H 12/16/20 00:57 CK-MB (CK-2) Rel Index 6.0 (0-4) H 12/16/20 00:57 Troponin T 0.731 ng/mL (0.00-0.029) H* 12/16/20 05:48 Total Protein 5.6 g/dL (6.3-8.2) L 12/19/20 06:59 Albumin 2.7 g/dL (3.9-5) L 12/19/20 06:59 Albumin/Globulin Ratio 0.9 % 12/19/20 06:59 Triglycerides 104 mg/dL (2-149) 12/16/20 00:57 Cholesterol 110 mg/dL (50-199) 12/16/20 00:57 LDL Cholesterol Direct 34 mg/dL (50-130) L 12/16/20 00:57 HDL Cholesterol 64 mg/dL (40-59) H 12/16/20 00:57 Cholesterol/HDL Ratio 1.71 % 12/16/20 00:57 TSH 4.000 mlU/mL (0.270-4.200) 12/17/20 05:42 Free T4 1.54 ng/dL (0.76-1.46) H 12/16/20 00:57 Random Vancomycin 14.3 ug/mL (0-40.0) 12/18/20 05:57 Acetaminophen 5.0 ug/mL (10.0-30.0) L 12/16/20 05:48 Plasma/Serum Alcohol < 0.01 % (0-0.07) 12/16/20 00:57 JULIA Screen Positive (Negative) H 12/17/20 05:42 Hepatitis A IgM Ab Non-reactive (NonReactive) 12/16/20 03:55 Hep Bs Antigen Non-reactive (Negative) 12/16/20 03:55 Hep B Core IgM Ab Non-reactive (NonReactive) 12/16/20 03:55 Hepatitis C Antibody Non-reactive (NonReactive) 12/16/20 03:55 Microbiology: Microbiology 12/16/20 03:55 Peripheral/Venous Blood Culture - Preliminary NO GROWTH AFTER 4 DAYS 12/16/20 03:10 Peripheral/Venous Blood Culture - Preliminary NO GROWTH AFTER 4 DAYS [place]/IV: Voiding Method Incontinent Active Medications - Current Medications Current Medications: Generic Name Dose Route Start Last Admin Trade Name Alejandroq PRN Reason Stop Dose Admin Dextrose 0 ml 12/16/20 03:40 12/18/20 08:23 Dextrose 50% In Water (25gm) 50 Ml Syringe IV 50 ml Q30MIN PRN Administration Hypoglycemia Protocol Sodium Chloride 1,000 mls @ 75 mls/hr 12/16/20 03:45 12/17/20 22:24 Nacl 0.9% 1000 Ml IV 75 mls/hr DIRECT JEET Administration Cefepime HCl 2 gm in 100 mls @ 200 mls/hr 12/16/20 10:00 12/19/20 11:24 Cefepime/Ns 2 Gm/100 Ml IV 12/20/20 10:29 200 mls/hr Q24HR JEET Administration Protocol Sodium Chloride 100 mls @ 999 mls/hr 12/16/20 08:09 Nacl 0.9% IV ROSA M PRN Hypotension Ibuprofen 600 mg 12/16/20 03:40 Ibuprofen 600 Mg Tab PO Q6H PRN Pain, Mild (1-3) Insulin Human Regular 0 units 12/16/20 07:30 12/20/20 08:10 Insulin Regular, Human 100 Units/1 Ml SUB-Q Not Given ACHS JEET Protocol Magnesium Hydroxide 30 ml 12/16/20 03:40 Magnesium Hydroxide (Mom) Oral Liqd Udc PO Q4H PRN Constipation Midodrine 5 mg 12/16/20 12:00 12/20/20 08:10 Midodrine 5 Mg Tab PO Not Given TID@0800,1200,1600 JEET Morphine Sulfate 0.5 mg 12/18/20 13:00 Morphine 2 Mg/1 Ml Inj IV Q6H PRN Pain, Moderate (4-6) Ondansetron HCl 4 mg 12/16/20 03:40 Ondansetron 4 Mg/2 Ml Inj IV Q8H PRN Nausea And Vomiting Sodium Chloride 10 ml 12/16/20 10:00 12/19/20 22:31 Sodium Chloride 0.9% 10 Ml Flush Syringe IV 10 ml BID JEET Administration Sodium Chloride 10 ml 12/16/20 03:40 Sodium Chloride 0.9% 10 Ml Flush Syringe IV PRN PRN LINE FLUSH Nutrition/Malnutrition Assess - Dietary Evaluation Nutrition/Malnutrition Findings: Nutrition Notes Start: 12/16/20 14:32 Freq: Status: Active Protocol: Document 12/18/20 12:32 (Rec: 12/18/20 12:33 [email or web address]) Nutrition Notes Initial or Follow up Brief Note Current Diagnosis CKD (stage V CKD),Diabetes, Hypertension Other Pertinent Diagnosis AMS, Elevated LFTs Current Diet NPO Subjective/Other Information FU for intakes. Unable to wake pt. No intakes in chart. Nutrition Intervention Follow-Up By: 12/20/20 Additional Comments FU for intakes and need for ONS
[2020-12-20] MEDS ORDERED: SODIUM CHLORIDE 0.9% 100 ML IV PRN (09:20)
[2020-12-20] MEDS: CEFEPIME/NS 2 GM/100 ML 2 GM/100 ML BAG IV SCH (10:16)
[2020-12-20 10:37] LABS: Hematocrit 26.2 % (30.3-42.9); Hemoglobin 8.1 gm/dl (10.1-14.3); Mean Corpuscular HGB Conc 31 % (30-34); Mean Corpuscular Volume 99 fl (79-97); Red Blood Count 2.64 M/mm3 (3.65-5.03)
[2020-12-20 10:41] LABS: Platelet Count 82 K/mm3 (140-440); Red Cell Distribution Width 22.8 % (13.2-15.2)
[2020-12-20] MEDS: EPOETIN ALFA-EPBX 10,000 UNIT/1 ML VIAL SUB-Q PRN (11:33)
--- NOTE | 2020-12-20 12:11 | Consultation ---
History of Present Illness - Reason for Consult Consult date: 12/20/20 possible sepsis Requesting physician: CHALINO NIETO - History of Present Illness The patient is a 70-year-old female with diabetes, hypertension, ESRD admitted to the hospital on 12/16/2020 due to altered mental status. Notably, patient had a recent hospitalization due to hyperkalemia after having missed dialysis. Upon evaluation in the ER, noted to have leukocytosis, elevated INR, elevated AST, ALT. Chest x-ray did not reveal any obvious pneumonia. Patient was afebrile. She was started empirically on cefepime and vancomycin for broad-spectrum coverage, completed 5 days of that. Leukocytosis is resolved. Yesterday, an [facility] was called due to hypoglycemia and hypotension, patient was moved to [facility]. She has remained afebrile throughout the hospitalization. Currently receiving HD. Abdominal ultrasound showed contracted gallbladder, no other acute abnormality. Chest x-ray showed reduced lung volumes, no obvious pneumonia. CT head with atrophy, severe generalized atherosclerosis, no acute intracranial abnormality. 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 Past History Past Medical History: diabetes, dialysis, ESRD, hypertension Past Surgical History: Other (Left arm AV fistula, Left chest Vas Cath.) Social history: no significant social history Family history: no significant family history Medications and Allergies Allergies Allergy/AdvReac Type Severity Reaction Status Date / Time No Known Allergies Allergy Verified 12/11/20 17:11 Home Medications Medication Instructions Recorded Confirmed Last Taken Type Apixaban [Eliquis] 5 mg PO BID 12/16/20 12/16/20 Unknown History Aspirin [Adult Aspirin] 81 mg PO QDAY 12/16/20 12/16/20 Unknown History Escitalopram [Lexapro] 10 mg PO DAILY 12/16/20 12/16/20 Unknown History Gabapentin 300 mg PO QDAY 12/16/20 12/16/20 Unknown History Levemir Flextouch 12/16/20 Unknown History Midodrine [Proamatine] 15 mg PO TID 12/16/20 12/16/20 Unknown History NovoLOG Flexpen 12/16/20 Unknown History Pantoprazole [Protonix] 40 mg PO QDAY 12/16/20 12/16/20 Unknown History Vit B Comp No.3/Folic/C/Biotin 1 each PO DAILY 12/16/20 12/16/20 Unknown History [Nephro-Nola Rx Tablet] sevelamer HCL [Sevelamer HCl] 800 mg PO TID 12/16/20 12/16/20 Unknown History Active Meds: Active Medications Dextrose (Dextrose 50% In Water (25gm) 50 Ml Syringe) 0 ml IV Q30MIN PRN; Protocol PRN Reason: Hypoglycemia Last Admin: 12/18/20 08:23 Dose: 50 ml Documented by: Sodium Chloride (Nacl 0.9% 1000 Ml) 1,000 mls @ 75 mls/hr IV DIRECT JEET Last Admin: 12/17/20 22:24 Dose: 75 mls/hr Documented by: Sodium Chloride (Nacl 0.9%) 100 mls @ 999 mls/hr IV ROSA M PRN PRN Reason: Hypotension Sodium Chloride (Nacl 0.9%) 100 mls @ 999 mls/hr IV ROSA M PRN PRN Reason: Hypotension Ibuprofen (Ibuprofen 600 Mg Tab) 600 mg PO Q6H PRN PRN Reason: Pain, Mild (1-3) Insulin Human Regular (Insulin Regular, Human 100 Units/1 Ml) 0 units SUB-Q ACHS [facility]; Protocol Last Admin: 12/20/20 08:10 Dose: Not Given Documented by: Magnesium Hydroxide (Magnesium Hydroxide (Mom) Oral Liqd Udc) 30 ml PO Q4H PRN PRN Reason: Constipation Midodrine (Midodrine 5 Mg Tab) 5 mg PO TID@0800,1200,1600 [facility] Last Admin: 12/20/20 08:10 Dose: Not Given Documented by: Morphine Sulfate (Morphine 2 Mg/1 Ml Inj) 0.5 mg IV Q6H PRN PRN Reason: Pain, Moderate (4-6) Ondansetron HCl (Ondansetron 4 Mg/2 Ml Inj) 4 mg IV Q8H PRN PRN Reason: Nausea And Vomiting Sodium Chloride (Sodium Chloride 0.9% 10 Ml Flush Syringe) 10 ml IV BID [facility] Last Admin: 12/20/20 10:16 Dose: 10 ml Documented by: Sodium Chloride (Sodium Chloride 0.9% 10 Ml Flush Syringe) 10 ml IV PRN PRN PRN Reason: LINE FLUSH Physical Examination - Physical Exam Narrative exam: Physical Exam: Constitutional: Awake, no distress Head, Ears, Nose: Normocephalic, atraumatic. External ears, nose normal Eyes: Conjunctivae/corneas clear. No icterus. No ptosis. Neck: Supple, no meningeal signs Cardiovascular: S1, S2 + Respiratory: Good air entry, clear to auscultation bilaterally GI: Soft, non-tender; bowel sounds normal. No peritoneal signs Musculoskeletal: Bilateral lower extremity with dressings, superficial wounds. Left subclavian dialysis catheter present Skin: No rash or abscess Hem/Lymphatic: No palpable cervical or supraclavicular nodes. No lymphangitis Psych: No agitation Neurological: Awake, does not respond much - Constitutional Vitals: Vital Signs Temp Pulse Resp BP Pulse Ox 98.8 F 82 17 130/49 97 12/20/20 12:00 12/20/20 12:00 12/20/20 12:00 12/20/20 12:00 12/20/20 12:00 Temperature -Last 24 Hours Temperature 98.8 F Temperature 98.8 F Temperature 97.8 F Temperature 98.2 F Temperature 97.5 F Results - Labs CBC & Chem 7: 12/20/20 10:26 12/20/20 05:48 Labs: Abnormal lab results 12/19/20 12/19/20 12/20/20 Range/Units 16:01 22:03 03:18 RBC (3.65-5.03) M/mm3 Hgb (10.1-14.3) gm/dl Hct (30.3-42.9) % MCV (79-97) fl RDW (13.2-15.2) % Plt Count (140-440) K/mm3 Sodium (137-145) mmol/L Chloride (98-107) mmol/L Carbon Dioxide (22-30) mmol/L BUN (7-17) mg/dL Creatinine (0.6-1.2) mg/dL Glucose (65-100) mg/dL POC Glucose 141 H 121 H 142 H (70-105) mg/dL 12/20/20 12/20/20 12/20/20 Range/Units 05:46 05:48 10:26 RBC 2.64 L (3.65-5.03) M/mm3 Hgb 8.1 L (10.1-14.3) gm/dl Hct 26.2 L (30.3-42.9) % MCV 99 H (79-97) fl RDW 22.8 H (13.2-15.2) % Plt Count 82 L (140-440) K/mm3 Sodium 146 H (137-145) mmol/L Chloride 109.6 H (98-107) mmol/L Carbon Dioxide 21 L (22-30) mmol/L BUN 32 H (7-17) mg/dL Creatinine 5.5 H (0.6-1.2) mg/dL Glucose 124 H (65-100) mg/dL POC Glucose 125 H (70-105) mg/dL - Imaging and Cardiology Chest x-ray: report reviewed, image reviewed (no pneumonia seen. HD cath +) Assessment and Plan Cultures: 12/16/2020 blood culture: No growth A/P: 70-year-old female with diabetes, hypertension, ESRD admitted to the hospital on 12/16/2020 due to altered mental status: #SIRS/sepsis: chest x-ray without pneumonia, blood cultures negative. Afebrile. Leukocytosis resolved. Status post 5 days of empiric cefepime and vancomycin. #Bilateral lower extremity wounds, ?some wounds may be calciphylaxis: Wound care, dialysis compliance. #ESRD on HD: Renally dose antibiotics. #Acute encephalopathy: CT head with atrophy, severe generalized atherosclerosis, no acute intracranial abnormality #Elevated LFTs: Downtrending. Abdominal ultrasound showed contracted gallbladder, no other acute abnormality. Hepatitis panel negative. #Thrombocytopenia Recs: -Continue off antibiotics (completed 5 days of Cefepime + Vancomycin) -Wound care, offloading as possible -b/l arterial dopplers of LE -JULIA screen positive, further work up per ALEX Tobar MD, FACP [facility] ([facility] O: [phone] F: [phone]
--- NOTE | 2020-12-20 13:14 | Progress Note ---
Assessment and Plan 1. ESRD: Patient is on maintenance hemodialysis three times a week, MWF schedule. Meds dosage based on GFR. Hemodialysis: 12/16, 12/18. 2. FEN: Hyperkalemia, improved. Anion-gap metabolic acidosis, 2/2 Lactic acidosis, monitor. Monitor lytes and volume status. 3. Anemia, POA: 2/2 ESRD. Epogen with HD as needed. 4. Acute metabolic encephalopathy, POA: CT head negative. Seen by Neuro. Monitor. 5. Sepsis, POA: Abx. Follow cultures. 6. Elevated Troponin: Followed by Cards. 7. H/o HTN: BP was on the lowside. Midodrine. Monitor BP. 8. Elevated ALT / AST: Followed by GI. 9. Hypoglycemia: Improved. Subjective: Patient was seen and examined at the bedside. General Appearance: General appearance: well-developed, appears stated age, not in distress, VM O2 HEENT: ATNC, pupils equal Neck: trachea midline Respiratory: ctab Heart: regular, S1S2, no murmur Abdomen: soft, bowel sounds heard, not tender Integumentary: no rash, warm and dry Neurologic: lethargic, not following any command, not conversing Ext: no edema Hemodialysis access: L IJ tunnel catheter Subjective Date of service: 12/20/20 Objective - Vital Signs Vital signs: Vital Signs - 12hr 12/20/20 12/20/20 12/20/20 02:00 03:00 04:00 Temperature Pulse Rate 81 81 79 Respiratory 12 13 13 Rate Respiratory Rate [ Generalized] Blood Pressure 113/52 115/41 127/42 O2 Sat by Pulse 98 97 100 Oximetry O2 Sat by Pulse Oximetry [ Anterior Bilateral Throughout] O2 Sat by Pulse Oximetry [ Bilateral Bases ] 12/20/20 12/20/20 12/20/20 04:25 04:47 05:00 Temperature Pulse Rate 77 77 Respiratory 12 Rate Respiratory 12 Rate [ Generalized] Blood Pressure 113/36 O2 Sat by Pulse 100 Oximetry O2 Sat by Pulse Oximetry [ Anterior Bilateral Throughout] O2 Sat by Pulse Oximetry [ Bilateral Bases ] 12/20/20 12/20/20 12/20/20 06:00 07:00 08:09 Temperature 97.8 F 98.8 F Pulse Rate 84 82 83 Respiratory 15 13 14 Rate Respiratory Rate [ Generalized] Blood Pressure 130/43 123/39 129/54 O2 Sat by Pulse 98 96 Oximetry O2 Sat by Pulse 97 Oximetry [ Anterior Bilateral Throughout] O2 Sat by Pulse 97 Oximetry [ Bilateral Bases ] 12/20/20 12/20/20 12/20/20 08:30 08:45 09:00 Temperature Pulse Rate 83 83 83 Respiratory Rate Respiratory Rate [ Generalized] Blood Pressure 129/54 126/43 123/44 O2 Sat by Pulse Oximetry O2 Sat by Pulse Oximetry [ Anterior Bilateral Throughout] O2 Sat by Pulse Oximetry [ Bilateral Bases ] 12/20/20 12/20/20 12/20/20 09:15 09:30 09:45 Temperature Pulse Rate 84 83 82 Respiratory Rate Respiratory Rate [ Generalized] Blood Pressure 125/39 129/35 119/37 O2 Sat by Pulse Oximetry O2 Sat by Pulse Oximetry [ Anterior Bilateral Throughout] O2 Sat by Pulse Oximetry [ Bilateral Bases ] 12/20/20 12/20/20 12/20/20 10:00 10:15 10:30 Temperature Pulse Rate 83 81 83 Respiratory Rate Respiratory Rate [ Generalized] Blood Pressure 108/83 105/69 105/48 O2 Sat by Pulse Oximetry O2 Sat by Pulse Oximetry [ Anterior Bilateral Throughout] O2 Sat by Pulse Oximetry [ Bilateral Bases ] 12/20/20 12/20/20 12/20/20 10:45 11:00 11:15 Temperature Pulse Rate 81 82 85 Respiratory Rate Respiratory Rate [ Generalized] Blood Pressure 117/60 108/51 123/95 O2 Sat by Pulse Oximetry O2 Sat by Pulse Oximetry [ Anterior Bilateral Throughout] O2 Sat by Pulse Oximetry [ Bilateral Bases ] 12/20/20 12/20/20 11:30 12:00 Temperature 98.8 F Pulse Rate 85 82 Respiratory 17 Rate Respiratory Rate [ Generalized] Blood Pressure 117/53 130/49 O2 Sat by Pulse Oximetry O2 Sat by Pulse 97 Oximetry [ Anterior Bilateral Throughout] O2 Sat by Pulse 97 Oximetry [ Bilateral Bases ] - Lab 12/20/20 10:26 12/20/20 05:48 Most recent lab results Calcium 9.0 mg/dL (8.4-10.2) 12/20/20 05:48 Medications & Allergies - Medications Allergies/Adverse Reactions: Allergies No Known Allergies Allergy (Verified 12/11/20 17:11) Home Medications: Home Medications Medication Instructions Recorded Confirmed Last Taken Type Apixaban [Eliquis] 5 mg PO BID 12/16/20 12/16/20 Unknown History Aspirin [Adult Aspirin] 81 mg PO QDAY 12/16/20 12/16/20 Unknown History Escitalopram [Lexapro] 10 mg PO DAILY 12/16/20 12/16/20 Unknown History Gabapentin 300 mg PO QDAY 12/16/20 12/16/20 Unknown History Levemir Flextouch 12/16/20 Unknown History Midodrine [Proamatine] 15 mg PO TID 12/16/20 12/16/20 Unknown History NovoLOG Flexpen 12/16/20 Unknown History Pantoprazole [Protonix] 40 mg PO QDAY 12/16/20 12/16/20 Unknown History Vit B Comp No.3/Folic/C/Biotin 1 each PO DAILY 12/16/20 12/16/20 Unknown History [Nephro-Nola Rx Tablet] sevelamer HCL [Sevelamer HCl] 800 mg PO TID 12/16/20 12/16/20 Unknown History Active Medications: Generic Name Dose Route Start Last Admin Trade Name Freq PRN Reason Stop Dose Admin Dextrose 0 ml 12/16/20 03:40 12/18/20 08:23 Dextrose 50% In Water (25gm) 50 Ml Syringe IV 50 ml Q30MIN PRN Administration Hypoglycemia Protocol Sodium Chloride 1,000 mls @ 75 mls/hr 12/16/20 03:45 12/17/20 22:24 Nacl 0.9% 1000 Ml IV 75 mls/hr DIRECT JEET Administration Sodium Chloride 100 mls @ 999 mls/hr 12/16/20 08:09 Nacl 0.9% IV ROSA M PRN Hypotension Sodium Chloride 100 mls @ 999 mls/hr 12/20/20 09:20 Nacl 0.9% IV ROSA M PRN Hypotension Ibuprofen 600 mg 12/16/20 03:40 Ibuprofen 600 Mg Tab PO Q6H PRN Pain, Mild (1-3) Insulin Human Regular 0 units 12/16/20 07:30 12/20/20 12:32 Insulin Regular, Human 100 Units/1 Ml SUB-Q Not Given ACHS JEET Protocol Magnesium Hydroxide 30 ml 12/16/20 03:40 Magnesium Hydroxide (Mom) Oral Liqd Udc PO Q4H PRN Constipation Midodrine 5 mg 12/16/20 12:00 12/20/20 08:10 Midodrine 5 Mg Tab PO Not Given TID@0800,1200,1600 JEET Morphine Sulfate 0.5 mg 12/18/20 13:00 Morphine 2 Mg/1 Ml Inj IV Q6H PRN Pain, Moderate (4-6) Ondansetron HCl 4 mg 12/16/20 03:40 Ondansetron 4 Mg/2 Ml Inj IV Q8H PRN Nausea And Vomiting Sodium Chloride 10 ml 12/16/20 10:00 12/20/20 10:16 Sodium Chloride 0.9% 10 Ml Flush Syringe IV 10 ml BID JEET Administration Sodium Chloride 10 ml 12/16/20 03:40 Sodium Chloride 0.9% 10 Ml Flush Syringe IV PRN PRN LINE FLUSH
--- NOTE | 2020-12-20 13:15 | Gastroenterology Progress Note ---
Assessment and Plan 1. Liver; increase lft's now improving - probable shock liver - continue follow labs - hemodynamic stability per primary team - liver serologies negative to date - no plans liver bx or other intervention - no GI changes, follow lft's, call if needed Subjective Date of service: 12/20/20 Interval history: - no GI complaints overnight Objective - Constitutional Vitals: Temp Pulse Resp BP Pulse Ox 98.8 F 82 17 130/49 97 12/20/20 12:00 12/20/20 12:00 12/20/20 12:00 12/20/20 12:00 12/20/20 12:00 General appearance: no acute distress - EENT Eyes: PERRL - Respiratory Respiratory: bilateral: CTA - Cardiovascular Rhythm: regular Heart Sounds: Present: S1 & S2 - Gastrointestinal General gastrointestinal: Present: soft, non-tender, non-distended - Labs CBC & Chem 7: 12/20/20 10:26 12/20/20 05:48 Labs: Laboratory Results - last 24 hr 12/19/20 12/19/20 12/20/20 16:01 22:03 03:18 WBC RBC Hgb Hct MCV MCH MCHC RDW Plt Count Sodium Potassium Chloride Carbon Dioxide Anion Gap BUN Creatinine Estimated GFR BUN/Creatinine Ratio Glucose POC Glucose 141 H 121 H 142 H Calcium 12/20/20 12/20/20 12/20/20 05:46 05:48 10:26 WBC 8.6 RBC 2.64 L Hgb 8.1 L Hct 26.2 L MCV 99 H MCH 31 MCHC 31 RDW 22.8 H Plt Count 82 L Sodium 146 H Potassium 3.8 Chloride 109.6 H Carbon Dioxide 21 L Anion Gap 19 BUN 32 H Creatinine 5.5 H Estimated GFR 9 BUN/Creatinine Ratio 6 Glucose 124 H POC Glucose 125 H Calcium 9.0 12/20/20 12/20/20 12:32 12:38 WBC RBC Hgb Hct MCV MCH MCHC RDW Plt Count Sodium Potassium Chloride Carbon Dioxide Anion Gap BUN Creatinine Estimated GFR BUN/Creatinine Ratio Glucose POC Glucose 139 H 136 H Calcium
--- NOTE | 2020-12-20 14:12 | Consultation ---
History of Present Illness Consult date: 12/20/20 History of present illness: 70-year-old female with known history of hypertension, diabetes mellitus and end-stage renal disease on dialysis brought into the emergency room today with a complaint of altered mental status. Patient was said to have felt weak and became incoherent after dialysis yesterday. She was said to be moaning and groaning and became less responsive and EMS was then called. According to EMS patient will not answer questions and was not following commands. Patient has become more coherent and more responsive upon arrival in the emergency room. She was able to answer most questions but intermittently feels drowsy. Patient was recently seen here in this hospital about a week ago having been admitted with end-stage renal disease with hyperkalemia during which she had emergent dialysis. She was said to have missed her dialysis at the time. There has been no history of fever or chills, no chest pain, no cough or shortness of breath, no nausea vomiting, no abdominal pain, no diarrhea, no headache or dizziness and no diaphoresis. Patient denies any sick contacts and no recent travel. She has had a COVID-19 vaccination. Work-up in the emergency room today was significant for leukocytosis of 18.2 elevated INR of 2.8, hyperkalemia of 5.4, BUN and creatinine of 34 and 5.6 respectively, lactic acid of 6.6, elevated liver enzymes with AST 2838 and ALT 1353. Troponin was elevated at 0.72 Chest x-ray shows reduced lung volumes with probable bilateral atelectasis/edema. CT scan of the head shows no acute findings. EKG showed no acute findings. The patient is non verbal per the Nurse at home she is more alert ,awaits an MRI Brain. Past History Past Medical History: diabetes, dialysis, ESRD, hypertension Past Surgical History: Other (Left arm AV fistula, Left chest Vas Cath.) Social history: no significant social history Family history: no significant family history Medications and Allergies Allergies Allergy/AdvReac Type Severity Reaction Status Date / Time No Known Allergies Allergy Verified 12/11/20 17:11 Home Medications Medication Instructions Recorded Confirmed Last Taken Type Apixaban [Eliquis] 5 mg PO BID 12/16/20 12/16/20 Unknown History Aspirin [Adult Aspirin] 81 mg PO QDAY 12/16/20 12/16/20 Unknown History Escitalopram [Lexapro] 10 mg PO DAILY 12/16/20 12/16/20 Unknown History Gabapentin 300 mg PO QDAY 12/16/20 12/16/20 Unknown History Levemir Flextouch 12/16/20 Unknown History Midodrine [Proamatine] 15 mg PO TID 12/16/20 12/16/20 Unknown History NovoLOG Flexpen 12/16/20 Unknown History Pantoprazole [Protonix] 40 mg PO QDAY 12/16/20 12/16/20 Unknown History Vit B Comp No.3/Folic/C/Biotin 1 each PO DAILY 12/16/20 12/16/20 Unknown History [Nephro-Nola Rx Tablet] sevelamer HCL [Sevelamer HCl] 800 mg PO TID 12/16/20 12/16/20 Unknown History Active Meds: Active Medications Dextrose (Dextrose 50% In Water (25gm) 50 Ml Syringe) 0 ml IV Q30MIN PRN; Protocol PRN Reason: Hypoglycemia Last Admin: 12/18/20 08:23 Dose: 50 ml Documented by: Sodium Chloride (Nacl 0.9% 1000 Ml) 1,000 mls @ 75 mls/hr IV DIRECT JEET Last Admin: 12/17/20 22:24 Dose: 75 mls/hr Documented by: Sodium Chloride (Nacl 0.9%) 100 mls @ 999 mls/hr IV ROSA M PRN PRN Reason: Hypotension Sodium Chloride (Nacl 0.9%) 100 mls @ 999 mls/hr IV ROSA M PRN PRN Reason: Hypotension Ibuprofen (Ibuprofen 600 Mg Tab) 600 mg PO Q6H PRN PRN Reason: Pain, Mild (1-3) Insulin Human Regular (Insulin Regular, Human 100 Units/1 Ml) 0 units SUB-Q ACHS [facility]; Protocol Last Admin: 12/20/20 12:32 Dose: Not Given Documented by: Magnesium Hydroxide (Magnesium Hydroxide (Mom) Oral Liqd Udc) 30 ml PO Q4H PRN PRN Reason: Constipation Midodrine (Midodrine 5 Mg Tab) 5 mg PO TID@0800,1200,1600 [facility] Last Admin: 12/20/20 08:10 Dose: Not Given Documented by: Morphine Sulfate (Morphine 2 Mg/1 Ml Inj) 0.5 mg IV Q6H PRN PRN Reason: Pain, Moderate (4-6) Ondansetron HCl (Ondansetron 4 Mg/2 Ml Inj) 4 mg IV Q8H PRN PRN Reason: Nausea And Vomiting Sodium Chloride (Sodium Chloride 0.9% 10 Ml Flush Syringe) 10 ml IV BID JEET Last Admin: 12/20/20 10:16 Dose: 10 ml Documented by: Sodium Chloride (Sodium Chloride 0.9% 10 Ml Flush Syringe) 10 ml IV PRN PRN PRN Reason: LINE FLUSH Physical Examination - Vital Signs Vital Signs: Vital Signs Temp Pulse Resp BP Pulse Ox 98.3 F 97 H 23 125/55 98 12/16/20 01:03 12/16/20 01:03 12/16/20 01:03 12/16/20 01:03 12/16/20 01:03 - Physical Exam Narrative exam: The patient is lethargic, no verbal command, does not move the extremities , ? very sluggish . Results - Laboratory Findings CBC and BMP: 12/20/20 10:26 12/20/20 05:48 Abnormal Lab Findings: Abnormal Labs 12/16/20 12/16/20 12/16/20 00:38 00:57 00:57 WBC 18.2 H RBC 3.13 L Hgb 9.4 L Hct MCV 100 H RDW 22.7 H Plt Count Lymph % (Auto) 8.0 L Parke % (Auto) 7.8 H Parke # (Auto) 1.4 H Seg Neutrophils % 83.4 H Seg Neutrophils # 15.2 H PT 29.9 H INR 2.80 H APTT 39.9 H Sodium Potassium Chloride Carbon Dioxide BUN Creatinine Glucose POC Glucose 116 H Hemoglobin A1c Lactic Acid Total Bilirubin Direct Bilirubin AST ALT Alkaline Phosphatase CK-MB (CK-2) CK-MB (CK-2) Rel Index Troponin T Total Protein Albumin LDL Cholesterol Direct HDL Cholesterol TSH Free T4 Acetaminophen JULIA Screen 12/16/20 12/16/20 12/16/20 00:57 00:57 00:57 WBC RBC Hgb Hct MCV RDW Plt Count Lymph % (Auto) Parke % (Auto) Parke # (Auto) Seg Neutrophils % Seg Neutrophils # PT INR APTT Sodium 136 L Potassium 5.4 H Chloride 94.2 L Carbon Dioxide 18 L D BUN 34 H Creatinine 5.6 H Glucose 108 H POC Glucose Hemoglobin A1c Lactic Acid 8.10 H* Total Bilirubin 1.30 H Direct Bilirubin AST 2838 H ALT 1353 H Alkaline Phosphatase 186 H CK-MB (CK-2) 5.1 H CK-MB (CK-2) Rel Index 6.0 H Troponin T 0.720 H* Total Protein Albumin 3.2 L LDL Cholesterol Direct 34 L HDL Cholesterol 64 H TSH 6.720 H Free T4 1.54 H Acetaminophen JULIA Screen 12/16/20 12/16/20 12/16/20 01:45 05:48 05:48 WBC RBC Hgb Hct MCV RDW Plt Count Lymph % (Auto) Parke % (Auto) Parke # (Auto) Seg Neutrophils % Seg Neutrophils # PT INR APTT Sodium Potassium Chloride Carbon Dioxide BUN Creatinine Glucose POC Glucose Hemoglobin A1c Lactic Acid 6.60 H* 6.00 H* Total Bilirubin Direct Bilirubin AST ALT Alkaline Phosphatase CK-MB (CK-2) CK-MB (CK-2) Rel Index Troponin T 0.731 H* Total Protein Albumin LDL Cholesterol Direct HDL Cholesterol TSH Free T4 Acetaminophen JULIA Screen 12/16/20 12/16/20 12/16/20 05:48 05:48 07:57 WBC RBC Hgb Hct MCV RDW Plt Count Lymph % (Auto) Parke % (Auto) Parke # (Auto) Seg Neutrophils % Seg Neutrophils # PT INR APTT Sodium Potassium Chloride Carbon Dioxide BUN Creatinine Glucose POC Glucose 115 H 118 H Hemoglobin A1c Lactic Acid Total Bilirubin Direct Bilirubin AST ALT Alkaline Phosphatase CK-MB (CK-2) CK-MB (CK-2) Rel Index Troponin T Total Protein Albumin LDL Cholesterol Direct HDL Cholesterol TSH Free T4 Acetaminophen 5.0 L JULIA Screen 12/16/20 12/16/20 12/16/20 10:35 11:30 16:12 WBC RBC Hgb Hct MCV RDW Plt Count Lymph % (Auto) Parke % (Auto) Parke # (Auto) Seg Neutrophils % Seg Neutrophils # PT INR APTT Sodium Potassium Chloride Carbon Dioxide BUN Creatinine Glucose POC Glucose 124 H 115 H Hemoglobin A1c Lactic Acid 2.40 H* Total Bilirubin Direct Bilirubin AST ALT Alkaline Phosphatase CK-MB (CK-2) CK-MB (CK-2) Rel Index Troponin T Total Protein Albumin LDL Cholesterol Direct HDL Cholesterol TSH Free T4 Acetaminophen JULIA Screen 12/16/20 12/17/20 12/17/20 21:00 05:42 05:42 WBC 12.0 H RBC 2.52 L Hgb 7.6 L Hct 24.6 L D MCV 98 H RDW 22.7 H Plt Count 137 L Lymph % (Auto) 9.7 L Parke % (Auto) 8.3 H Parke # (Auto) 1.0 H Seg Neutrophils % 78.2 H Seg Neutrophils # 9.4 H PT 26.3 H INR 2.36 H APTT Sodium Potassium Chloride Carbon Dioxide BUN Creatinine Glucose POC Glucose 149 H Hemoglobin A1c Lactic Acid Total Bilirubin Direct Bilirubin AST ALT Alkaline Phosphatase CK-MB (CK-2) CK-MB (CK-2) Rel Index Troponin T Total Protein Albumin LDL Cholesterol Direct HDL Cholesterol TSH Free T4 Acetaminophen JULIA Screen 12/17/20 12/17/20 12/17/20 05:42 05:42 05:42 WBC RBC Hgb Hct MCV RDW Plt Count Lymph % (Auto) Parke % (Auto) Parke # (Auto) Seg Neutrophils % Seg Neutrophils # PT INR APTT Sodium Potassium Chloride Carbon Dioxide BUN 28 H Creatinine 4.5 H Glucose 176 H POC Glucose Hemoglobin A1c Lactic Acid Total Bilirubin Direct Bilirubin 0.6 H AST 1744 H ALT 1938 H Alkaline Phosphatase 158 H CK-MB (CK-2) CK-MB (CK-2) Rel Index Troponin T Total Protein 5.7 L Albumin 2.7 L LDL Cholesterol Direct HDL Cholesterol TSH Free T4 Acetaminophen JULIA Screen Positive H 12/17/20 12/17/20 12/17/20 09:54 12:30 16:32 WBC RBC Hgb Hct MCV RDW Plt Count Lymph % (Auto) Parke % (Auto) Parke # (Auto) Seg Neutrophils % Seg Neutrophils # PT INR APTT Sodium Potassium Chloride Carbon Dioxide BUN Creatinine Glucose POC Glucose 150 H 154 H 146 H Hemoglobin A1c Lactic Acid Total Bilirubin Direct Bilirubin AST ALT Alkaline Phosphatase CK-MB (CK-2) CK-MB (CK-2) Rel Index Troponin T Total Protein Albumin LDL Cholesterol Direct HDL Cholesterol TSH Free T4 Acetaminophen JULIA Screen 12/17/20 12/18/20 12/18/20 20:26 05:57 05:57 WBC 14.8 H RBC 2.70 L Hgb 8.2 L Hct 27.5 L MCV 102 H RDW 22.5 H Plt Count 87 L Lymph % (Auto) Parke % (Auto) Parke # (Auto) Seg Neutrophils % Seg Neutrophils # PT INR APTT Sodium Potassium Chloride Carbon Dioxide 18 L D BUN 36 H Creatinine 6.0 H Glucose 63 L POC Glucose 107 H Hemoglobin A1c Lactic Acid Total Bilirubin 1.30 H Direct Bilirubin AST 1403 H ALT 1839 H Alkaline Phosphatase 149 H CK-MB (CK-2) CK-MB (CK-2) Rel Index Troponin T Total Protein 5.6 L Albumin 2.6 L LDL Cholesterol Direct HDL Cholesterol TSH Free T4 Acetaminophen JULIA Screen 12/18/20 12/18/20 12/18/20 05:57 08:03 08:14 WBC RBC Hgb Hct MCV RDW Plt Count Lymph % (Auto) Parke % (Auto) Parke # (Auto) Seg Neutrophils % Seg Neutrophils # PT INR APTT Sodium Potassium Chloride Carbon Dioxide BUN Creatinine Glucose POC Glucose 45 L 163 H Hemoglobin A1c 7.1 H Lactic Acid Total Bilirubin Direct Bilirubin AST ALT Alkaline Phosphatase CK-MB (CK-2) CK-MB (CK-2) Rel Index Troponin T Total Protein Albumin LDL Cholesterol Direct HDL Cholesterol TSH Free T4 Acetaminophen JULIA Screen 12/18/20 12/18/20 12/18/20 10:04 11:40 18:00 WBC RBC Hgb Hct MCV RDW Plt Count Lymph % (Auto) Parke % (Auto) Parke # (Auto) Seg Neutrophils % Seg Neutrophils # PT INR APTT Sodium Potassium Chloride Carbon Dioxide BUN Creatinine Glucose POC Glucose 129 H 128 H 161 H Hemoglobin A1c Lactic Acid Total Bilirubin Direct Bilirubin AST ALT Alkaline Phosphatase CK-MB (CK-2) CK-MB (CK-2) Rel Index Troponin T Total Protein Albumin LDL Cholesterol Direct HDL Cholesterol TSH Free T4 Acetaminophen JULIA Screen 12/18/20 12/19/20 12/19/20 21:40 01:26 05:49 WBC RBC Hgb Hct MCV RDW Plt Count Lymph % (Auto) Parke % (Auto) Parke # (Auto) Seg Neutrophils % Seg Neutrophils # PT INR APTT Sodium Potassium Chloride Carbon Dioxide BUN Creatinine Glucose POC Glucose 138 H 148 H 136 H Hemoglobin A1c Lactic Acid Total Bilirubin Direct Bilirubin AST ALT Alkaline Phosphatase CK-MB (CK-2) CK-MB (CK-2) Rel Index Troponin T Total Protein Albumin LDL Cholesterol Direct HDL Cholesterol TSH Free T4 Acetaminophen JULIA Screen 12/19/20 12/19/20 12/19/20 06:59 06:59 08:38 WBC 12.1 H RBC 2.76 L Hgb 8.5 L Hct 27.8 L MCV 101 H RDW 22.3 H Plt Count 82 L Lymph % (Auto) Parke % (Auto) Parke # (Auto) Seg Neutrophils % Seg Neutrophils # PT INR APTT Sodium 147 H Potassium Chloride Carbon Dioxide BUN 21 H Creatinine 3.9 H Glucose 144 H POC Glucose 139 H Hemoglobin A1c Lactic Acid Total Bilirubin 1.70 H Direct Bilirubin 1.2 H AST 871 H ALT 1552 H Alkaline Phosphatase 146 H CK-MB (CK-2) CK-MB (CK-2) Rel Index Troponin T Total Protein 5.6 L Albumin 2.7 L LDL Cholesterol Direct HDL Cholesterol TSH Free T4 Acetaminophen JULIA Screen 12/19/20 12/19/20 12/19/20 11:45 16:01 22:03 WBC RBC Hgb Hct MCV RDW Plt Count Lymph % (Auto) Parke % (Auto) Parke # (Auto) Seg Neutrophils % Seg Neutrophils # PT INR APTT Sodium Potassium Chloride Carbon Dioxide BUN Creatinine Glucose POC Glucose 138 H 141 H 121 H Hemoglobin A1c Lactic Acid Total Bilirubin Direct Bilirubin AST ALT Alkaline Phosphatase CK-MB (CK-2) CK-MB (CK-2) Rel Index Troponin T Total Protein Albumin LDL Cholesterol Direct HDL Cholesterol TSH Free T4 Acetaminophen JULIA Screen 12/20/20 12/20/20 12/20/20 03:18 05:46 05:48 WBC RBC Hgb Hct MCV RDW Plt Count Lymph % (Auto) Parke % (Auto) Parke # (Auto) Seg Neutrophils % Seg Neutrophils # PT INR APTT Sodium 146 H Potassium Chloride 109.6 H Carbon Dioxide 21 L BUN 32 H Creatinine 5.5 H Glucose 124 H POC Glucose 142 H 125 H Hemoglobin A1c Lactic Acid Total Bilirubin Direct Bilirubin AST ALT Alkaline Phosphatase CK-MB (CK-2) CK-MB (CK-2) Rel Index Troponin T Total Protein Albumin LDL Cholesterol Direct HDL Cholesterol TSH Free T4 Acetaminophen JULIA Screen 12/20/20 12/20/20 12/20/20 10:26 12:32 12:38 WBC RBC 2.64 L Hgb 8.1 L Hct 26.2 L MCV 99 H RDW 22.8 H Plt Count 82 L Lymph % (Auto) Parke % (Auto) Parke # (Auto) Seg Neutrophils % Seg Neutrophils # PT INR APTT Sodium Potassium Chloride Carbon Dioxide BUN Creatinine Glucose POC Glucose 139 H 136 H Hemoglobin A1c Lactic Acid Total Bilirubin Direct Bilirubin AST ALT Alkaline Phosphatase CK-MB (CK-2) CK-MB (CK-2) Rel Index Troponin T Total Protein Albumin LDL Cholesterol Direct HDL Cholesterol TSH Free T4 Acetaminophen JULIA Screen Assessment and Plan 1. Encephalopathy - Multifactorial . 2. Agree with MRI Brain . 3. EEG 4. Avoid Sedation. 5. Based upon the above test results will be able to further opine , further prognostication . 6. Follow up as needed Dr. Uziel VILLALOBOS
[2020-12-20] MEDS ORDERED: NON-FORMULARY EACH (Apixaban 5 MG Tablet) PO SCH (16:00)
--- NOTE | 2020-12-20 16:27 | XRay Report ---
ABDOMEN 1 VIEW 12/20/2020 3:19 PM INDICATION / CLINICAL INFORMATION: NGT Placement. COMPARISON: None available. FINDINGS: TUBES / LINES: There is a nasogastric tube with the tip overlying the distal gastric body and the pro ximal sidehole well below the gastroesophageal junction. BOWEL GAS PATTERN: No significant abnormality. FREE AIR / EXTRALUMINAL GAS: None. ADDITIONAL FINDINGS: No significant additional findings. IMPRESSION: Nasogastric tube tip overlies the gastric body. Signer Name: Emerson Crump MD Signed: 12/20/2020 4:22 PM Workstation Name: [id number]
--- NOTE | 2020-12-20 16:29 | Vascular Lab Report ---
DUPLEX DOPPLER LOWER EXTREMITY ARTERIAL, BILATERAL INDICATION / CLINICAL INFORMATION: peripheral vascular disease, wounds. TECHNIQUE: Arterial duplex examination of both lower extremities performed using B-mode, color flow a nd spectral Doppler assessment. FINDINGS: RIGHT: - Atherosclerotic Plaque: Moderate. - Elevated Velocity (>200 cm/s): None. - Abnormal Waveform: Diffusely monophasic waveforms throughout the right lower extremity LEFT: - Atherosclerotic Plaque: Moderate. - Elevated Velocity (>200 cm/s): None. - Abnormal Waveform: Diffusely monophasic waveforms throughout the left lower extremity.. ADDITIONAL FINDINGS: None. IMPRESSION: 1. Diffusely monophasic waveforms throughout the bilateral lower extremities without significant foca l stenosis or occlusion. Ankle-Brachial Index (AIMEE): - Calcified arteries > 1.4 - Normal = 0.9-1.4 - Mild PAD = 0.7-0.89 - Moderate PAD = 0.51-0.69 - Severe PAD < 0.5 Doppler Waveform: - Triphasic is normal. - Biphasic is abnormal if clear transition from triphasic signal along vascular tree. - Monophasic is abnormal. Signer Name: Neri Nice MD Signed: 12/20/2020 4:24 PM Workstation Name: [email or web address]
[2020-12-20] MEDS: ASPIRIN EC 81 MG TAB PO SCH (17:21)
--- NOTE | 2020-12-20 18:08 | Progress Note ---
Assessment and Plan - Patient Problems (1) Elevated troponin Current Visit: Yes Status: Acute Plan to address problem: Cardiac status is stable, no new cardiac complaints, will follow conservatively. Subjective Date of service: 12/20/20 Interval history: Patient is lethargic, but breathing comfortably on room air, no acute distress. On roll cutter she has a sinus rhythm at 84, blood pressure 126 systolic, no cardiac complaints Objective Vital Signs Temp Pulse Pulse Resp Resp BP Pulse Ox 12/20/20 16:00 97.9 F 12/20/20 15:00 83 11 L 134/29 97 12/20/20 14:00 83 11 L 126/42 100 12/20/20 13:00 84 22 112/25 99 12/20/20 12:00 98.8 F 82 15 124/42 98 12/20/20 11:30 85 117/53 12/20/20 11:15 85 123/95 12/20/20 11:00 82 10 L 108/51 98 12/20/20 10:45 81 117/60 12/20/20 10:30 83 105/48 12/20/20 10:15 81 105/69 12/20/20 10:00 83 14 108/83 98 12/20/20 09:45 82 119/37 12/20/20 09:30 83 129/35 12/20/20 09:15 84 125/39 12/20/20 09:00 82 14 123/44 99 12/20/20 08:45 83 126/43 12/20/20 08:30 83 129/54 12/20/20 08:09 98.8 F 83 14 129/54 12/20/20 08:00 86 9 L 129/54 98 12/20/20 07:00 97.8 F 82 13 123/39 96 12/20/20 06:00 84 15 130/43 98 12/20/20 05:00 77 12 113/36 100 12/20/20 04:47 12 12/20/20 04:25 77 12/20/20 04:00 79 13 127/42 100 12/20/20 03:00 81 13 115/41 97 12/20/20 02:00 81 12 113/52 98 12/20/20 01:00 83 13 121/36 100 12/20/20 00:00 89 88 17 121/38 100 12/19/20 23:00 90 19 121/38 100 12/19/20 22:00 87 15 130/37 100 12/19/20 21:00 88 14 131/32 100 12/19/20 20:59 100 12/19/20 20:04 98.2 F 12/19/20 20:00 88 12 100/34 100 12/19/20 19:00 89 17 119/29 100 12/19/20 18:12 90 16 119/29 100 Pulse Ox Pulse Ox 12/20/20 16:00 12/20/20 15:00 12/20/20 14:00 12/20/20 13:00 12/20/20 12:00 97 97 12/20/20 11:30 12/20/20 11:15 12/20/20 11:00 12/20/20 10:45 12/20/20 10:30 12/20/20 10:15 12/20/20 10:00 12/20/20 09:45 12/20/20 09:30 12/20/20 09:15 12/20/20 09:00 12/20/20 08:45 12/20/20 08:30 12/20/20 08:09 97 97 12/20/20 08:00 12/20/20 07:00 12/20/20 06:00 12/20/20 05:00 12/20/20 04:47 12/20/20 04:25 12/20/20 04:00 12/20/20 03:00 12/20/20 02:00 12/20/20 01:00 12/20/20 00:00 12/19/20 23:00 12/19/20 22:00 12/19/20 21:00 12/19/20 20:59 12/19/20 20:04 12/19/20 20:00 12/19/20 19:00 12/19/20 18:12 - Physical Examination General: No Apparent Distress HEENT: Positive: PERRL Neck: Positive: neck supple Cardiac: Positive: Reg Rate and Rhythm Lungs: Positive: Decreased Breath Sounds Neuro: Positive: Weakness Abdomen: Positive: Soft Skin: Positive: Clear Extremities: Absent: edema - Labs and Meds CBC 12/20/20 Range/Units 10:26 WBC 8.6 (4.5-11.0) K/mm3 RBC 2.64 L (3.65-5.03) M/mm3 Hgb 8.1 L (10.1-14.3) gm/dl Hct 26.2 L (30.3-42.9) % Plt Count 82 L (140-440) K/mm3 Comprehensive Metabolic Panel 12/20/20 Range/Units 05:48 Sodium 146 H (137-145) mmol/L Potassium 3.8 (3.6-5.0) mmol/L Chloride 109.6 H (98-107) mmol/L Carbon Dioxide 21 L (22-30) mmol/L BUN 32 H (7-17) mg/dL Creatinine 5.5 H (0.6-1.2) mg/dL Glucose 124 H (65-100) mg/dL Calcium 9.0 (8.4-10.2) mg/dL
[2020-12-20] MEDS: APIXABAN 5 MG TAB PO SCH (21:26)
[2020-12-21] MEDS: MIDODRINE 5 MG TAB PO SCH ×3 (09:11→17:23)
[2020-12-21] MEDS: INSULIN REGULAR, HUMAN 100 UNITS/1 ML SUB-Q SCH ×4 (09:11→22:48)
[2020-12-21] MEDS: ASPIRIN EC 81 MG TAB PO SCH (09:11)
[2020-12-21] MEDS: APIXABAN 5 MG TAB PO SCH ×2 (09:11→22:48)
--- NOTE | 2020-12-21 09:43 | Progress Note ---
Assessment and Plan Assessment and plan: (1) Altered mental status Current Visit: Yes Status: Acute Plan to address problem: Possibly secondary to multiple underlying problems including possible sepsis, end-stage renal disease with hyperkalemia and elevated liver enzymes. Will monitor mental status. (2) ESRD (end stage renal disease) Current Visit: No Status: Acute Plan to address problem: We will place consult to nephrology for evaluation. (3) Hyperkalemia Current Visit: No Status: Acute Plan to address problem: Possibly secondary to the end-stage renal disease. Patient will be given Kayexalate, insulin/glucose, sodium bicarb and will monitor potassium levels. (4) Elevated liver enzymes Current Visit: Yes Status: Acute Plan to address problem: Etiology is unclear. We will request gastroenterology evaluation. We will also check hepatitis profile. (5) Elevated troponin Current Visit: Yes Status: Acute Plan to address problem: Possibly secondary to the underlying end-stage renal disease versus sepsis. However we trend cardiac enzymes and request cardiology evaluation and recommendations. (6) Diabetes mellitus Current Visit: Yes Status: Acute Plan to address problem: Patient placed on sliding scale insulin. We will monitor Accu-Cheks closely. (7) DVT prophylaxis Current Visit: Yes Status: Acute Plan to address problem: Patient currently on anticoagulation with Eliquis. (8) Full code status Current Visit: Yes Status: Acute Plan to address problem: Patient is full code. 12/17/20 Patient with ESRD on hemodialysis presents with altered mental status, acute metabolic encephalopathy. Also has markedly elevated AST and ALT GI consulted. Her LFTs were normal last admission just 5 days ago. 12/18/20 Patient with ESRD on hemodialysis. Rapid response called this morning. She is very lethargic, minimal responsive. Bld glucose 45mg/dl and BP 74/15. She was given 1 amp D50. Blood glucose now 163. BP up to 123/30 but MAP still under 65. Will give 500 ml Normal Saline and transfer to [facility].I discussed with Dr. Chong, Nephrology. LFTs improving though still very high. 12/19/20 Patient with ESRD on hemodialysis. Rapid response called yesterday for hypoglycemia and hypotension, so transferred to [facility]. Blood glucose normalized. BP improved. 12/20/20 Patient with ESRD on hemodialysis. Presented with altered mental status. Was transferred to [facility] on 12/18/20. Still has altered mental status, very lethargic. MRI ordered. Neurology consulted. 12/21/20 Patient with ESRD on hemodialysis. Presented with altered mental status. Was transferred to [facility] on 12/18/20. Still has altered mental status, very lethargic. MRI ordered. EEG ordered. Patient ws evaluated by Neurology. Will talk to family. 12/11/ History Interval history: Still Altered mental status Patient transferred to [facility] on 12/18 Hospitalist Physical - Physical exam Narrative exam: Gen: Not in acute distress, HEENT: Normocephalic, atraumatic Neck : supple, no JVD Lungs:clear to auscultation bilaterally, no wheeze Heart:S1 and S2 reg, no murmurs, rubs or gallop Abd: Soft , non tender, non distended, normal bowel sounds Ext: No edema, no clubbing, no cyanosis Neuro: lethargic, - Constitutional Vitals: Temp Pulse Resp BP Pulse Ox 98.9 F 86 24 100/21 97 12/21/20 08:00 12/21/20 09:00 12/21/20 09:00 12/21/20 09:00 12/21/20 09:00 General appearance: Present: no acute distress HEART Score - HEART Score Troponin: Troponin T 0.731 ng/mL (0.00-0.029) H* 12/16/20 05:48 Results - Labs CBC & Chem 7: 12/20/20 10:26 12/20/20 05:48 Labs: Laboratory Last Values WBC 8.6 K/mm3 (4.5-11.0) 12/20/20 10:26 RBC 2.64 M/mm3 (3.65-5.03) L 12/20/20 10:26 Hgb 8.1 gm/dl (10.1-14.3) L 12/20/20 10:26 Hct 26.2 % (30.3-42.9) L 12/20/20 10:26 MCV 99 fl (79-97) H 12/20/20 10:26 MCH 31 pg (28-32) 12/20/20 10:26 MCHC 31 % (30-34) 12/20/20 10:26 RDW 22.8 % (13.2-15.2) H 12/20/20 10:26 Plt Count 82 K/mm3 (140-440) L 12/20/20 10:26 Lymph % (Auto) 9.7 % (13.4-35.0) L 12/17/20 05:42 [place] % (Auto) 8.3 % (0.0-7.3) H 12/17/20 05:42 Eos % (Auto) 3.0 % (0.0-4.3) 12/17/20 05:42 Baso % (Auto) 0.8 % (0.0-1.8) 12/17/20 05:42 Lymph # (Auto) 1.2 K/mm3 (1.2-5.4) 12/17/20 05:42 [place] # (Auto) 1.0 K/mm3 (0.0-0.8) H 12/17/20 05:42 Eos # (Auto) 0.4 K/mm3 (0.0-0.4) 12/17/20 05:42 Baso # (Auto) 0.1 K/mm3 (0.0-0.1) 12/17/20 05:42 Seg Neutrophils % 78.2 % (40.0-70.0) H 12/17/20 05:42 Seg Neutrophils # 9.4 K/mm3 (1.8-7.7) H 12/17/20 05:42 PT 26.3 Sec. (12.2-14.9) H 12/17/20 05:42 INR 2.36 (0.87-1.13) H 12/17/20 05:42 APTT 39.9 Sec. (24.2-36.6) H 12/16/20 00:57 Thrombin Time 16.9 Sec. (15.1-19.6) 12/16/20 00:57 VBG pH 7.334 (7.320-7.420) 12/16/20 00:57 Sodium 146 mmol/L (137-145) H 12/20/20 05:48 Potassium 3.8 mmol/L (3.6-5.0) 12/20/20 05:48 Chloride 109.6 mmol/L (98-107) H 12/20/20 05:48 Carbon Dioxide 21 mmol/L (22-30) L 12/20/20 05:48 Anion Gap 19 mmol/L 12/20/20 05:48 BUN 32 mg/dL (7-17) H 12/20/20 05:48 Creatinine 5.5 mg/dL (0.6-1.2) H 12/20/20 05:48 Estimated GFR 9 ml/min 12/20/20 05:48 BUN/Creatinine Ratio 6 % 12/20/20 05:48 Glucose 124 mg/dL (65-100) H 12/20/20 05:48 POC Glucose 127 mg/dL (70-105) H 12/21/20 08:38 Hemoglobin A1c 7.1 % (4-6) H 12/18/20 05:57 Lactic Acid 2.40 mmol/L (0.7-2.0) H* 12/16/20 10:35 Calcium 9.0 mg/dL (8.4-10.2) 12/20/20 05:48 Total Bilirubin 1.70 mg/dL (0.1-1.2) H 12/19/20 06:59 Direct Bilirubin 1.2 mg/dL (0-0.2) H 12/19/20 06:59 Indirect Bilirubin 0.5 mg/dL 12/19/20 06:59 AST 871 units/L (5-40) H 12/19/20 06:59 ALT 1552 units/L (7-56) H 12/19/20 06:59 Alkaline Phosphatase 146 units/L (35-129) H 12/19/20 06:59 Ammonia 27.0 umol/L (25-60) 12/16/20 00:57 Total Creatine Kinase 84 units/L (30-135) 12/16/20 00:57 CK-MB (CK-2) 5.1 ng/mL (0.0-4.0) H 12/16/20 00:57 CK-MB (CK-2) Rel Index 6.0 (0-4) H 12/16/20 00:57 Troponin T 0.731 ng/mL (0.00-0.029) H* 12/16/20 05:48 Total Protein 5.6 g/dL (6.3-8.2) L 12/19/20 06:59 Albumin 2.7 g/dL (3.9-5) L 12/19/20 06:59 Albumin/Globulin Ratio 0.9 % 12/19/20 06:59 Triglycerides 104 mg/dL (2-149) 12/16/20 00:57 Cholesterol 110 mg/dL (50-199) 12/16/20 00:57 LDL Cholesterol Direct 34 mg/dL (50-130) L 12/16/20 00:57 HDL Cholesterol 64 mg/dL (40-59) H 12/16/20 00:57 Cholesterol/HDL Ratio 1.71 % 12/16/20 00:57 TSH 4.000 mlU/mL (0.270-4.200) 12/17/20 05:42 Free T4 1.54 ng/dL (0.76-1.46) H 12/16/20 00:57 Random Vancomycin 14.3 ug/mL (0-40.0) 12/18/20 05:57 Acetaminophen 5.0 ug/mL (10.0-30.0) L 12/16/20 05:48 Plasma/Serum Alcohol < 0.01 % (0-0.07) 12/16/20 00:57 JULIA Screen Positive (Negative) H 12/17/20 05:42 Hepatitis A IgM Ab Non-reactive (NonReactive) 12/16/20 03:55 Hep Bs Antigen Non-reactive (Negative) 12/16/20 03:55 Hep B Core IgM Ab Non-reactive (NonReactive) 12/16/20 03:55 Hepatitis C Antibody Non-reactive (NonReactive) 12/16/20 03:55 Microbiology: Microbiology 12/16/20 03:55 Peripheral/Venous Blood Culture - Final NO GROWTH AFTER 5 DAYS 12/16/20 03:10 Peripheral/Venous Blood Culture - Final NO GROWTH AFTER 5 DAYS [place]/IV: Voiding Method Incontinent Active Medications - Current Medications Current Medications: Generic Name Dose Route Start Last Admin Trade Name Freq PRN Reason Stop Dose Admin Apixaban 5 mg 12/20/20 22:00 12/21/20 09:11 Apixaban 5 Mg Tab PO 5 mg Q12HR JEET Administration Aspirin 81 mg 12/20/20 17:00 12/21/20 09:11 Aspirin Ec 81 Mg Tab PO 81 mg QDAY JEET Administration Dextrose 0 ml 12/16/20 03:40 12/18/20 08:23 Dextrose 50% In Water (25gm) 50 Ml Syringe IV 50 ml Q30MIN PRN Administration Hypoglycemia Protocol Sodium Chloride 1,000 mls @ 75 mls/hr 12/16/20 03:45 12/17/20 22:24 Nacl 0.9% 1000 Ml IV 75 mls/hr DIRECT JEET Administration Sodium Chloride 100 mls @ 999 mls/hr 12/16/20 08:09 Nacl 0.9% IV ROSA M PRN Hypotension Sodium Chloride 100 mls @ 999 mls/hr 12/20/20 09:20 Nacl 0.9% IV ROSA M PRN Hypotension Ibuprofen 600 mg 12/16/20 03:40 Ibuprofen 600 Mg Tab PO Q6H PRN Pain, Mild (1-3) Insulin Human Regular 0 units 12/16/20 07:30 12/21/20 09:11 Insulin Regular, Human 100 Units/1 Ml SUB-Q Not Given ACHS JEET Protocol Magnesium Hydroxide 30 ml 12/16/20 03:40 Magnesium Hydroxide (Mom) Oral Liqd Udc PO Q4H PRN Constipation Midodrine 5 mg 12/16/20 12:00 12/21/20 09:11 Midodrine 5 Mg Tab PO 5 mg TID@0800,1200,1600 JEET Administration Morphine Sulfate 0.5 mg 12/18/20 13:00 Morphine 2 Mg/1 Ml Inj IV Q6H PRN Pain, Moderate (4-6) Ondansetron HCl 4 mg 12/16/20 03:40 Ondansetron 4 Mg/2 Ml Inj IV Q8H PRN Nausea And Vomiting Sodium Chloride 10 ml 12/16/20 10:00 12/21/20 09:11 Sodium Chloride 0.9% 10 Ml Flush Syringe IV 10 ml BID JEET Administration Sodium Chloride 10 ml 12/16/20 03:40 Sodium Chloride 0.9% 10 Ml Flush Syringe IV PRN PRN LINE FLUSH Nutrition/Malnutrition Assess - Dietary Evaluation Nutrition/Malnutrition Findings: Nutrition Notes Start: 12/16/20 14:32 Freq: Status: Active Protocol: Document 12/20/20 12:33 (Rec: 12/20/20 12:37 [id number]) Nutrition Notes Initial or Follow up Reassessment Current Diagnosis CKD (stage V CKD),Diabetes, Hypertension Other Pertinent Diagnosis AMS, Elevated LFTs Current Diet NPO Labs/Tests Na 14 BUN 32 CR 5.5 BG 124 Pertinent Medications reviewed Height 5 ft 6 in Weight 68.3 kg [place] Body Weight (kg) 59.09 BMI 24.3 Weight Status Appropriate Subjective/Other Information Pt continues with AMS. Pt getting HD at time of visit. Per RN, pt to get NGT today. Minimum of two criteria No physical signs of malnutrition #1 Nutrition Diagnosis Increased nutrient needs ( specify in comment below) Diagnosis Progress(for reassessment Continues documentation) Is patient on ventilator? No Is Patient Ambulatory and/or Out of Bed No REE-([place]-St. Jeor-confined to bed) 6651.007 Calculation Used for Recommendations [place] Jeor Additional Notes Protein: 1.25-1.5g/kg (76-92g) Fluid: 1 ml/kcal or per MD Nutrition Intervention Change Diet Order: Start TF as able Nutrition Support: Recommend: Nepro 1.8 at 35 ml/hr Flush 35 ml q4h Kcal 1,512 Protein (gm) 68 Fluid (mL) 611 Goal #1 Start TF Anticipated Discharge Needs: unable to determine at this time Follow-Up By: 12/24/20 Additional Comments F/u: TF consult or diet advancement
--- NOTE | 2020-12-21 09:54 | Progress Note ---
Assessment and Plan 1. ESRD: Patient is on maintenance hemodialysis three times a week, MWF schedule. Meds dosage based on GFR. Hemodialysis: 12/16, 12/18, 12/20. 2. FEN: Hyperkalemia, improved. Anion-gap metabolic acidosis, 2/2 Lactic acidosis, monitor. Monitor lytes and volume status. 3. Anemia, POA: 2/2 ESRD. Epogen with HD. 4. Acute metabolic encephalopathy, POA: CT head negative. Seen by Neuro. Monitor. 5. Sepsis, POA: S/p Abx. Bl culture negative. 6. Elevated Troponin: Followed by Cards. 7. H/o HTN: BP was on the lowside. Midodrine. Monitor BP. 8. Elevated ALT / AST: Followed by GI. 9. Hypoglycemia: Improved. Subjective: Patient was seen and examined at the bedside. General Appearance: General appearance: well-developed, appears stated age, not in distress, NG tube HEENT: ATNC, pupils equal Neck: trachea midline Respiratory: ctab Heart: regular, S1S2, no murmur Abdomen: soft, bowel sounds heard, not tender Integumentary: b/l leg dressing noted Neurologic: alert, not following any command, not conversing Ext: no edema Hemodialysis access: L IJ tunnel catheter Subjective Date of service: 12/21/20 Objective - Vital Signs Vital signs: Vital Signs - 12hr 12/20/20 12/20/20 12/20/20 22:00 23:00 23:48 Temperature 99.7 F H Pulse Rate 91 H 91 H Pulse Rate [ From Monitor] Respiratory 18 22 Rate Blood Pressure 121/26 118/30 O2 Sat by Pulse 98 97 Oximetry 12/21/20 12/21/20 12/21/20 00:00 01:00 02:00 Temperature Pulse Rate 87 86 89 Pulse Rate [ 86 From Monitor] Respiratory 13 14 13 Rate Blood Pressure 113/31 110/38 107/29 O2 Sat by Pulse 98 98 98 Oximetry 12/21/20 12/21/20 12/21/20 03:00 03:45 04:00 Temperature 98.6 F Pulse Rate 85 88 Pulse Rate [ 87 From Monitor] Respiratory 15 14 Rate Blood Pressure 105/30 111/59 O2 Sat by Pulse 97 98 Oximetry 12/21/20 12/21/20 12/21/20 05:00 06:00 07:00 Temperature Pulse Rate 87 89 87 Pulse Rate [ From Monitor] Respiratory 13 13 25 H Rate Blood Pressure 117/40 116/30 115/27 O2 Sat by Pulse 98 98 96 Oximetry 12/21/20 12/21/20 12/21/20 08:00 08:33 09:00 Temperature 98.9 F Pulse Rate 87 86 Pulse Rate [ From Monitor] Respiratory 25 H 24 Rate Blood Pressure 108/28 100/21 O2 Sat by Pulse 100 99 97 Oximetry - Lab 12/20/20 10:26 12/20/20 05:48 Most recent lab results Calcium 9.0 mg/dL (8.4-10.2) 12/20/20 05:48 Medications & Allergies - Medications Allergies/Adverse Reactions: Allergies No Known Allergies Allergy (Verified 12/11/20 17:11) Home Medications: Home Medications Medication Instructions Recorded Confirmed Last Taken Type Apixaban [Eliquis] 5 mg PO BID 12/16/20 12/16/20 Unknown History Aspirin [Adult Aspirin] 81 mg PO QDAY 12/16/20 12/16/20 Unknown History Escitalopram [Lexapro] 10 mg PO DAILY 12/16/20 12/16/20 Unknown History Gabapentin 300 mg PO QDAY 12/16/20 12/16/20 Unknown History Levemir Flextouch 12/16/20 Unknown History Midodrine [Proamatine] 15 mg PO TID 12/16/20 12/16/20 Unknown History NovoLOG Flexpen 12/16/20 Unknown History Pantoprazole [Protonix] 40 mg PO QDAY 12/16/20 12/16/20 Unknown History Vit B Comp No.3/Folic/C/Biotin 1 each PO DAILY 12/16/20 12/16/20 Unknown History [Nephro-Nola Rx Tablet] sevelamer HCL [Sevelamer HCl] 800 mg PO TID 12/16/20 12/16/20 Unknown History Active Medications: Generic Name Dose Route Start Last Admin Trade Name Freq PRN Reason Stop Dose Admin Apixaban 5 mg 12/20/20 22:00 12/21/20 09:11 Apixaban 5 Mg Tab PO 5 mg Q12HR JEET Administration Aspirin 81 mg 12/20/20 17:00 12/21/20 09:11 Aspirin Ec 81 Mg Tab PO 81 mg QDAY JEET Administration Dextrose 0 ml 12/16/20 03:40 12/18/20 08:23 Dextrose 50% In Water (25gm) 50 Ml Syringe IV 50 ml Q30MIN PRN Administration Hypoglycemia Protocol Sodium Chloride 1,000 mls @ 75 mls/hr 12/16/20 03:45 12/17/20 22:24 Nacl 0.9% 1000 Ml IV 75 mls/hr DIRECT JEET Administration Sodium Chloride 100 mls @ 999 mls/hr 12/16/20 08:09 Nacl 0.9% IV ROSA M PRN Hypotension Sodium Chloride 100 mls @ 999 mls/hr 12/20/20 09:20 Nacl 0.9% IV ROSA M PRN Hypotension Ibuprofen 600 mg 12/16/20 03:40 Ibuprofen 600 Mg Tab PO Q6H PRN Pain, Mild (1-3) Insulin Human Regular 0 units 12/16/20 07:30 12/21/20 09:11 Insulin Regular, Human 100 Units/1 Ml SUB-Q Not Given ACHS JEET Protocol Magnesium Hydroxide 30 ml 12/16/20 03:40 Magnesium Hydroxide (Mom) Oral Liqd Udc PO Q4H PRN Constipation Midodrine 5 mg 12/16/20 12:00 12/21/20 09:11 Midodrine 5 Mg Tab PO 5 mg TID@0800,1200,1600 JEET Administration Morphine Sulfate 0.5 mg 12/18/20 13:00 Morphine 2 Mg/1 Ml Inj IV Q6H PRN Pain, Moderate (4-6) Ondansetron HCl 4 mg 12/16/20 03:40 Ondansetron 4 Mg/2 Ml Inj IV Q8H PRN Nausea And Vomiting Sodium Chloride 10 ml 12/16/20 10:00 12/21/20 09:11 Sodium Chloride 0.9% 10 Ml Flush Syringe IV 10 ml BID JETE Administration Sodium Chloride 10 ml 12/16/20 03:40 Sodium Chloride 0.9% 10 Ml Flush Syringe IV PRN PRN LINE FLUSH
--- NOTE | 2020-12-21 10:31 | Progress Note ---
Assessment and Plan Cultures: 12/16/2020 blood culture: No growth A/P: 70-year-old female with diabetes, hypertension, ESRD admitted to the hospital on 12/16/2020 due to altered mental status: #SIRS/sepsis: chest x-ray without pneumonia, blood cultures negative. Afebrile. Leukocytosis resolved. Status post 5 days of empiric cefepime and vancomycin. #Bilateral lower extremity wounds, ?some wounds may be calciphylaxis: Wound care, dialysis compliance. b/l arterial dopplers of LE with diffuse disease, no focal stenosis. #ESRD on HD: Renally dose antibiotics. #Acute encephalopathy: CT head with atrophy, severe generalized atherosclerosis, no acute intracranial abnormality #Elevated LFTs: Downtrending. Abdominal ultrasound showed contracted gallbladder, no other acute abnormality. Hepatitis panel negative. #Thrombocytopenia Recs: -Continue off antibiotics (completed 5 days of Cefepime + Vancomycin) -Wound care, offloading as possible -JULIA screen positive, further work up per IMS ID will sign off. Please call with questions. Isabel Tobar MD, FACP [facility] ([facility] O: [phone] F: [phone] Subjective Date of service: 12/21/20 Interval history: Afebrile. Stable. Non verbal, d/w RN. Objective - Exam Narrative Exam: Physical Exam: Constitutional: Awake, no distress Head, Ears, Nose: Normocephalic, atraumatic. External ears, nose normal Eyes: Conjunctivae/corneas clear. No icterus. No ptosis. Neck: Supple, no meningeal signs Cardiovascular: S1, S2 + Respiratory: Good air entry, clear to auscultation bilaterally GI: Soft, non-tender; bowel sounds normal. No peritoneal signs Musculoskeletal: Bilateral lower extremity with dressings, superficial wounds. Left subclavian dialysis catheter present Skin: No rash or abscess Hem/Lymphatic: No palpable cervical or supraclavicular nodes. No lymphangitis Psych: No agitation Neurological: Awake, does not respond much, non verbal - Constitutional Vitals: Vital Signs Temp Pulse Resp BP Pulse Ox 98.9 F 86 24 100/21 97 12/21/20 08:00 12/21/20 09:00 12/21/20 09:00 12/21/20 09:00 12/21/20 09:00 Temperature -Last 24 Hours Temperature 98.9 F Temperature 98.6 F Temperature 99.7 F Temperature 99.2 F Temperature 97.9 F Temperature 97.9 F Temperature 98.8 F - Labs CBC & Chem 7: 12/20/20 10:26 12/20/20 05:48 Labs: Abnormal lab results 12/20/20 12/20/20 12/20/20 Range/Units 10:26 12:32 12:38 RBC 2.64 L (3.65-5.03) M/mm3 Hgb 8.1 L (10.1-14.3) gm/dl Hct 26.2 L (30.3-42.9) % MCV 99 H (79-97) fl RDW 22.8 H (13.2-15.2) % Plt Count 82 L (140-440) K/mm3 POC Glucose 139 H 136 H (70-105) mg/dL 12/20/20 12/20/20 12/20/20 Range/Units 16:05 20:00 23:23 RBC (3.65-5.03) M/mm3 Hgb (10.1-14.3) gm/dl Hct (30.3-42.9) % MCV (79-97) fl RDW (13.2-15.2) % Plt Count (140-440) K/mm3 POC Glucose 123 H 116 H 112 H (70-105) mg/dL 12/21/20 Range/Units 08:38 RBC (3.65-5.03) M/mm3 Hgb (10.1-14.3) gm/dl Hct (30.3-42.9) % MCV (79-97) fl RDW (13.2-15.2) % Plt Count (140-440) K/mm3 POC Glucose 127 H (70-105) mg/dL
--- NOTE | 2020-12-21 11:06 | Progress Note ---
Assessment and Plan Nonspecific Troponin elevation Dilated cardiomyopathy with EF 30-35%, mild to moderate mitral stenosis, moderate to severe mitral regurgitation, moderate to severe tricuspid regurgitation and severe pulmonary hypertension. ESRD Sepsis Altered Mental Status DM Recommend: Continue current therapy. Will add GDMT for cardiomyopathy and valvular heart disease as tolerated. Subjective Date of service: 12/21/20 Interval history: No acute events Objective Vital Signs Temp Pulse Pulse Resp BP Pulse Ox Pulse Ox 12/21/20 09:00 86 24 100/21 97 12/21/20 08:33 99 12/21/20 08:00 98.9 F 87 25 H 108/28 100 12/21/20 07:00 87 25 H 115/27 96 12/21/20 06:00 89 13 116/30 98 12/21/20 05:00 87 13 117/40 98 12/21/20 04:00 88 87 14 111/59 98 12/21/20 03:45 98.6 F 12/21/20 03:00 85 15 105/30 97 12/21/20 02:00 89 13 107/29 98 12/21/20 01:00 86 14 110/38 98 12/21/20 00:00 87 86 13 113/31 98 12/20/20 23:48 99.7 F H 12/20/20 23:00 91 H 22 118/30 97 12/20/20 22:00 91 H 18 121/26 98 12/20/20 21:23 98 12/20/20 21:00 85 19 119/29 96 12/20/20 20:10 84 17 101/33 99 12/20/20 20:00 99.2 F 89 86 15 101/33 98 12/20/20 19:00 87 14 111/37 96 12/20/20 18:00 89 17 119/31 95 12/20/20 17:00 86 26 H 116/28 97 12/20/20 16:00 97.9 F 92 H 16 95/17 91 12/20/20 15:00 83 11 L 134/29 97 12/20/20 14:00 83 11 L 126/42 100 12/20/20 13:00 84 22 112/25 99 12/20/20 12:00 98.8 F 82 15 124/42 100 97 12/20/20 11:30 85 117/53 12/20/20 11:15 85 123/95 Pulse Ox 12/21/20 09:00 12/21/20 08:33 12/21/20 08:00 12/21/20 07:00 12/21/20 06:00 12/21/20 05:00 12/21/20 04:00 12/21/20 03:45 12/21/20 03:00 12/21/20 02:00 12/21/20 01:00 12/21/20 00:00 12/20/20 23:48 12/20/20 23:00 12/20/20 22:00 12/20/20 21:23 12/20/20 21:00 12/20/20 20:10 12/20/20 20:00 12/20/20 19:00 12/20/20 18:00 12/20/20 17:00 12/20/20 16:00 12/20/20 15:00 12/20/20 14:00 12/20/20 13:00 12/20/20 12:00 97 12/20/20 11:30 12/20/20 11:15 - Physical Examination General: No Apparent Distress HEENT: Positive: PERRL Neck: Positive: neck supple Lungs: Positive: clear to auscultation Neuro: Positive: Weakness Abdomen: Positive: Soft Extremities: Absent: edema
--- NOTE | 2020-12-21 13:23 | Event Note ---
Date: 12/21/20 Called daughter Michelle Kruger and gave update.
[2020-12-22 05:57] LABS: Hematocrit 28.6 % (30.3-42.9); Hemoglobin 8.8 gm/dl (10.1-14.3); Mean Corpuscular HGB Conc 31 % (30-34); Mean Corpuscular Volume 101 fl (79-97); Red Blood Count 2.82 M/mm3 (3.65-5.03)
[2020-12-22 06:00] LABS: Platelet Count 67 K/mm3 (140-440); Red Cell Distribution Width 23.8 % (13.2-15.2)
[2020-12-22 06:15] LABS: Albumin 2.3 g/dL (3.9-5); Calcium 8.3 mg/dL (8.4-10.2)
[2020-12-22] MEDS: INSULIN REGULAR, HUMAN 100 UNITS/1 ML SUB-Q SCH ×4 (08:07→22:50)
[2020-12-22] MEDS ORDERED: SIMPLE SYRUP 15 ML FEEDTUBE PRN ×2 (08:19)
--- NOTE | 2020-12-22 08:46 | Progress Note ---
Assessment and Plan Assessment and plan: (1) Altered mental status Current Visit: Yes Status: Acute Plan to address problem: Possibly secondary to multiple underlying problems including possible sepsis, end-stage renal disease with hyperkalemia and elevated liver enzymes. Will monitor mental status. Sepsis, POA Completed Cefepime and Vancomycin ID following Thrombocytopenia may be due to Sepsis. To r/o HIT Plaletets getting lower 67 today She did not get any Heparin this admission but got Heparin last admission just few days earlier Obtain HIT test Consult Hematology ESRD (end stage renal disease) Current Visit: No Status: Acute Plan to address problem: We will place consult to nephrology for evaluation. Hyperkalemia Current Visit: No Status: Acute Plan to address problem: Possibly secondary to the end-stage renal disease. Patient will be given Kayexalate, insulin/glucose, sodium bicarb and will monitor potassium levels. Elevated liver enzymes Current Visit: Yes Status: Acute Plan to address problem: Etiology is unclear. We will request gastroenterology evaluation. We will also check hepatitis profile. Elevated troponin Current Visit: Yes Status: Acute Plan to address problem: Possibly secondary to the underlying end-stage renal disease versus sepsis. However we trend cardiac enzymes and request cardiology evaluation and recommendations. Diabetes mellitus Current Visit: Yes Status: Acute Plan to address problem: Patient placed on sliding scale insulin. We will monitor Accu-Cheks closely. DVT prophylaxis Current Visit: Yes Status: Acute Plan to address problem: Patient currently on anticoagulation with Eliquis. Full code status Current Visit: Yes Status: Acute Plan to address problem: Patient is full code. 12/17/20 Patient with ESRD on hemodialysis presents with altered mental status, acute metabolic encephalopathy. Also has markedly elevated AST and ALT GI consulted. Her LFTs were normal last admission just 5 days ago. 12/18/20 Patient with ESRD on hemodialysis. Rapid response called this morning. She is very lethargic, minimal responsive. Bld glucose 45mg/dl and BP 74/15. She was given 1 amp D50. Blood glucose now 163. BP up to 123/30 but MAP still under 65. Will give 500 ml Normal Saline and transfer to IM.I discussed with Dr. Chong, Nephrology. LFTs improving though still very high. 12/19/20 Patient with ESRD on hemodialysis. Rapid response called yesterday for hypoglycemia and hypotension, so transferred to IM. Blood glucose normalized. BP improved. 12/20/20 Patient with ESRD on hemodialysis. Presented with altered mental status. Was transferred to [facility] on 12/18/20. Still has altered mental status, very lethargic. MRI ordered. Neurology consulted. 12/21/20 Patient with ESRD on hemodialysis. Presented with altered mental status. Was transferred to [facility] on 12/18/20. Still has altered mental status, very lethargic. MRI ordered. EEG ordered. Patient ws evaluated by Neurology. Will talk to family. 12/22/20 Patient with ESRD on hemodialysis, diabetes,hypertension. She presented with altered mental status. She has been diagnosed with sepsis(POA), hypoglycemia, hypotension, thrombocytopenia. Was transferred to [facility] on 12/18/20 because of episode of hypoglycemia and hypotension. . Still has altered mental status, very lethargic. Neurology was consulted MRI ordered. EEG ordered. I spoke to daughter Michelle Kruger yesterday and gave update. For thrombocytopenia, will obtain HIT. Consult Hematology For blood in stool, will re-consult GI. Check H/H serially Elevated LFTs likely due to shock liver, improving 12/11/ History Interval history: Still Altered mental status Patient transferred to [facility] on 12/18 Nurse reports streaks of blood in stool Hospitalist Physical - Physical exam Narrative exam: Gen: Not in acute distress, HEENT: Normocephalic, atraumatic Neck : supple, no JVD Lungs:clear to auscultation bilaterally, no wheeze Heart:S1 and S2 reg, no murmurs, rubs or gallop Abd: Soft , non tender, non distended, normal bowel sounds Ext: No edema, no clubbing, no cyanosis Neuro: lethargic, - Constitutional Vitals: Temp Pulse Resp BP Pulse Ox 98.5 F 88 21 112/ 100 12/22/20 03:37 12/22/20 08:00 12/22/20 08:00 12/22/20 08:00 12/22/20 08:00 General appearance: Present: no acute distress HEART Score - HEART Score Troponin: Troponin T 0.731 ng/mL (0.00-0.029) H* 12/16/20 05:48 Results - Labs CBC & Chem 7: 12/22/20 05:06 12/22/20 05:06 Labs: Laboratory Last Values WBC 7.8 K/mm3 (4.5-11.0) 12/22/20 05:06 RBC 2.82 M/mm3 (3.65-5.03) L 12/22/20 05:06 Hgb 8.8 gm/dl (10.1-14.3) L 12/22/20 05:06 Hct 28.6 % (30.3-42.9) L 12/22/20 05:06 MCV 101 fl (79-97) H 12/22/20 05:06 MCH 31 pg (28-32) 12/22/20 05:06 MCHC 31 % (30-34) 12/22/20 05:06 RDW 23.8 % (13.2-15.2) H 12/22/20 05:06 Plt Count 67 K/mm3 (140-440) L 12/22/20 05:06 Lymph % (Auto) 9.7 % (13.4-35.0) L 12/17/20 05:42 [place] % (Auto) 8.3 % (0.0-7.3) H 12/17/20 05:42 Eos % (Auto) 3.0 % (0.0-4.3) 12/17/20 05:42 Baso % (Auto) 0.8 % (0.0-1.8) 12/17/20 05:42 Lymph # (Auto) 1.2 K/mm3 (1.2-5.4) 12/17/20 05:42 Harney # (Auto) 1.0 K/mm3 (0.0-0.8) H 12/17/20 05:42 Eos # (Auto) 0.4 K/mm3 (0.0-0.4) 12/17/20 05:42 Baso # (Auto) 0.1 K/mm3 (0.0-0.1) 12/17/20 05:42 Seg Neutrophils % 78.2 % (40.0-70.0) H 12/17/20 05:42 Seg Neutrophils # 9.4 K/mm3 (1.8-7.7) H 12/17/20 05:42 PT 26.3 Sec. (12.2-14.9) H 12/17/20 05:42 INR 2.36 (0.87-1.13) H 12/17/20 05:42 APTT 39.9 Sec. (24.2-36.6) H 12/16/20 00:57 Thrombin Time 16.9 Sec. (15.1-19.6) 12/16/20 00:57 VBG pH 7.334 (7.320-7.420) 12/16/20 00:57 Sodium 138 mmol/L (137-145) D 12/22/20 05:06 Potassium 4.6 mmol/L (3.6-5.0) D 12/22/20 05:06 Chloride 100.5 mmol/L (98-107) 12/22/20 05:06 Carbon Dioxide 22 mmol/L (22-30) 12/22/20 05:06 Anion Gap 20 mmol/L 12/22/20 05:06 BUN 30 mg/dL (7-17) H 12/22/20 05:06 Creatinine 5.1 mg/dL (0.6-1.2) H 12/22/20 05:06 Estimated GFR 10 ml/min 12/22/20 05:06 BUN/Creatinine Ratio 6 % 12/22/20 05:06 Glucose 123 mg/dL (65-100) H 12/22/20 05:06 POC Glucose 117 mg/dL (70-105) H 12/22/20 07:42 Hemoglobin A1c 7.1 % (4-6) H 12/18/20 05:57 Lactic Acid 2.40 mmol/L (0.7-2.0) H* 12/16/20 10:35 Calcium 8.3 mg/dL (8.4-10.2) L 12/22/20 05:06 Total Bilirubin 2.70 mg/dL (0.1-1.2) H 12/22/20 05:06 Direct Bilirubin 1.2 mg/dL (0-0.2) H 12/19/20 06:59 Indirect Bilirubin 0.5 mg/dL 12/19/20 06:59 AST 150 units/L (5-40) H 12/22/20 05:06 ALT 644 units/L (7-56) H 12/22/20 05:06 Alkaline Phosphatase 148 units/L (35-129) H 12/22/20 05:06 Ammonia 27.0 umol/L (25-60) 12/16/20 00:57 Total Creatine Kinase 84 units/L (30-135) 12/16/20 00:57 CK-MB (CK-2) 5.1 ng/mL (0.0-4.0) H 12/16/20 00:57 CK-MB (CK-2) Rel Index 6.0 (0-4) H 12/16/20 00:57 Troponin T 0.731 ng/mL (0.00-0.029) H* 12/16/20 05:48 Total Protein 5.6 g/dL (6.3-8.2) L 12/22/20 05:06 Albumin 2.3 g/dL (3.9-5) L 12/22/20 05:06 Albumin/Globulin Ratio 0.7 % 12/22/20 05:06 Triglycerides 104 mg/dL (2-149) 12/16/20 00:57 Cholesterol 110 mg/dL (50-199) 12/16/20 00:57 LDL Cholesterol Direct 34 mg/dL (50-130) L 12/16/20 00:57 HDL Cholesterol 64 mg/dL (40-59) H 12/16/20 00:57 Cholesterol/HDL Ratio 1.71 % 12/16/20 00:57 TSH 4.000 mlU/mL (0.270-4.200) 12/17/20 05:42 Free T4 1.54 ng/dL (0.76-1.46) H 12/16/20 00:57 Random Vancomycin 14.3 ug/mL (0-40.0) 12/18/20 05:57 Acetaminophen 5.0 ug/mL (10.0-30.0) L 12/16/20 05:48 Plasma/Serum Alcohol < 0.01 % (0-0.07) 12/16/20 00:57 JULIA Screen Positive (Negative) H 12/17/20 05:42 Hepatitis A IgM Ab Non-reactive (NonReactive) 12/16/20 03:55 Hep Bs Antigen Non-reactive (Negative) 12/16/20 03:55 Hep B Core IgM Ab Non-reactive (NonReactive) 12/16/20 03:55 Hepatitis C Antibody Non-reactive (NonReactive) 12/16/20 03:55 Microbiology: Microbiology 12/16/20 03:55 Peripheral/Venous Blood Culture - Final NO GROWTH AFTER 5 DAYS 12/16/20 03:10 Peripheral/Venous Blood Culture - Final NO GROWTH AFTER 5 DAYS [place]/IV: Voiding Method Incontinent Active Medications - Current Medications Current Medications: Generic Name Dose Route Start Last Admin Trade Name Freq PRN Reason Stop Dose Admin Dextrose 0 ml 12/16/20 03:40 12/18/20 08:23 Dextrose 50% In Water (25gm) 50 Ml Syringe IV 50 ml Q30MIN PRN Administration Hypoglycemia Protocol Sodium Chloride 1,000 mls @ 75 mls/hr 12/16/20 03:45 12/17/20 22:24 Nacl 0.9% 1000 Ml IV 75 mls/hr DIRECT JEET Administration Sodium Chloride 100 mls @ 999 mls/hr 12/16/20 08:09 Nacl 0.9% IV ROSA M PRN Hypotension Sodium Chloride 100 mls @ 999 mls/hr 12/20/20 09:20 Nacl 0.9% IV ROSA M PRN Hypotension Insulin Human Regular 0 units 12/16/20 07:30 12/22/20 08:07 Insulin Regular, Human 100 Units/1 Ml SUB-Q Not Given ACHS JEET Protocol Magnesium Hydroxide 30 ml 12/16/20 03:40 Magnesium Hydroxide (Mom) Oral Liqd Udc PO Q4H PRN Constipation Midodrine 5 mg 12/16/20 12:00 12/21/20 17:23 Midodrine 5 Mg Tab PO 5 mg TID@0800,1200,1600 JEET Administration Morphine Sulfate 0.5 mg 12/18/20 13:00 Morphine 2 Mg/1 Ml Inj IV Q6H PRN Pain, Moderate (4-6) Ondansetron HCl 4 mg 12/16/20 03:40 Ondansetron 4 Mg/2 Ml Inj IV Q8H PRN Nausea And Vomiting Simple Syrup 15 ml 12/22/20 08:19 Simple Syrup 15 Ml FEEDTUBE PRN PRN Hypoglycemia Simple Syrup 30 ml 12/22/20 08:19 Simple Syrup 15 Ml FEEDTUBE PRN PRN Hypoglycemia Sodium Chloride 10 ml 12/16/20 10:00 12/21/20 22:48 Sodium Chloride 0.9% 10 Ml Flush Syringe IV 10 ml BID JEET Administration Sodium Chloride 10 ml 12/16/20 03:40 Sodium Chloride 0.9% 10 Ml Flush Syringe IV PRN PRN LINE FLUSH Nutrition/Malnutrition Assess - Dietary Evaluation Nutrition/Malnutrition Findings: Nutrition Notes Start: 12/16/20 14:32 Freq: Status: Active Protocol: Document 12/20/20 12:33 RACQUEL (Rec: 12/20/20 12:37 [id number]) Nutrition Notes Initial or Follow up Reassessment Current Diagnosis CKD (stage V CKD),Diabetes, Hypertension Other Pertinent Diagnosis AMS, Elevated LFTs Current Diet NPO Labs/Tests Na 14 BUN 32 CR 5.5 BG 124 Pertinent Medications reviewed Height 5 ft 6 in Weight 68.3 kg [place] Body Weight (kg) 59.09 BMI 24.3 Weight Status Appropriate Subjective/Other Information Pt continues with AMS. Pt getting HD at time of visit. Per RN, pt to get NGT today. Minimum of two criteria No physical signs of malnutrition #1 Nutrition Diagnosis Increased nutrient needs ( specify in comment below) Diagnosis Progress(for reassessment Continues documentation) Is patient on ventilator? No Is Patient Ambulatory and/or Out of Bed No REE-([place]-St. Jeor-confined to bed) [phone] Calculation Used for Recommendations [place] Jeor Additional Notes Protein: 1.25-1.5g/kg (76-92g) Fluid: 1 ml/kcal or per MD Nutrition Intervention Change Diet Order: Start TF as able Nutrition Support: Recommend: Nepro 1.8 at 35 ml/hr Flush 35 ml q4h Kcal 1,512 Protein (gm) 68 Fluid (mL) 611 Goal #1 Start TF Anticipated Discharge Needs: unable to determine at this time Follow-Up By: 12/24/20 Additional Comments F/u: TF consult or diet advancement
[2020-12-22] MEDS: MIDODRINE 5 MG TAB PO SCH ×3 (10:00→16:20)
[2020-12-22] MEDS ORDERED: SODIUM BICARBONATE 325 MG TAB FEEDTUBE PRN (10:34)
[2020-12-22] MEDS ORDERED: LIPASE 10,500/PROTEASE 25,000/AMYLASE 43,750 (UNITS) DR CAP FEEDTUBE PRN (10:34)
--- NOTE | 2020-12-22 11:04 | Progress Note ---
Assessment and Plan 1. ESRD: Patient is on maintenance hemodialysis three times a week, MWF schedule. Meds dosage based on GFR. Hemodialysis: 12/16, 12/18, 12/20. 2. FEN: Hyperkalemia, improved. Anion-gap metabolic acidosis, 2/2 Lactic acidosis, monitor. Monitor lytes and volume status. 3. Anemia, POA: 2/2 ESRD. Epogen with HD. 4. Acute metabolic encephalopathy, POA: CT head negative. Seen by Neuro. Monitor. 5. Sepsis, POA: S/p Abx. Bl culture negative. 6. Elevated Troponin: Followed by Cards. 7. Hypotension: On Midodrine. Monitor BP. 8. Elevated ALT / AST: Improving. 9. Hypoglycemia: Improved. Subjective: Patient was seen and examined at the bedside. General Appearance: General appearance: well-developed, appears stated age, not in distress, NG tube HEENT: ATNC, pupils equal Neck: trachea midline Respiratory: ctab Heart: regular, S1S2, no murmur Abdomen: soft, bowel sounds heard, not tender Integumentary: b/l leg dressing noted Neurologic: lethargic, not following any command, not conversing Ext: no edema Hemodialysis access: L IJ tunnel catheter Subjective Date of service: 12/22/20 Objective - Vital Signs Vital signs: Vital Signs - 12hr 12/22/20 12/22/20 12/22/20 00:00 00:25 01:00 Temperature 100.6 F H Pulse Rate 93 H 94 H 90 Respiratory 24 22 Rate Blood Pressure 125/43 112/28 O2 Sat by Pulse 100 94 Oximetry 12/22/20 12/22/20 12/22/20 02:00 03:00 03:36 Temperature 99.3 F Pulse Rate 90 93 H Respiratory 25 H 16 Rate Blood Pressure 112/41 136/34 O2 Sat by Pulse 96 100 Oximetry 12/22/20 12/22/20 12/22/20 03:37 04:00 05:00 Temperature 98.5 F Pulse Rate 93 H 90 Respiratory 26 H 18 Rate Blood Pressure 136/34 131/35 O2 Sat by Pulse 100 99 Oximetry 12/22/20 12/22/20 12/22/20 06:00 07:00 08:00 Temperature Pulse Rate 91 H 89 87 Respiratory 21 14 21 Rate Blood Pressure 131/35 127/39 112/21 O2 Sat by Pulse 100 100 100 Oximetry 12/22/20 09:27 Temperature Pulse Rate Respiratory Rate Blood Pressure O2 Sat by Pulse 100 Oximetry - Lab 12/22/20 05:06 12/22/20 05:06 Most recent lab results Calcium 8.3 mg/dL (8.4-10.2) L 12/22/20 05:06 Medications & Allergies - Medications Allergies/Adverse Reactions: Allergies No Known Allergies Allergy (Verified 12/11/20 17:11) Home Medications: Home Medications Medication Instructions Recorded Confirmed Last Taken Type Apixaban [Eliquis] 5 mg PO BID 12/16/20 12/16/20 Unknown History Aspirin [Adult Aspirin] 81 mg PO QDAY 12/16/20 12/16/20 Unknown History Escitalopram [Lexapro] 10 mg PO DAILY 12/16/20 12/16/20 Unknown History Gabapentin 300 mg PO QDAY 12/16/20 12/16/20 Unknown History Levemir Flextouch 12/16/20 Unknown History Midodrine [Proamatine] 15 mg PO TID 12/16/20 12/16/20 Unknown History NovoLOG Flexpen 12/16/20 Unknown History Pantoprazole [Protonix] 40 mg PO QDAY 12/16/20 12/16/20 Unknown History Vit B Comp No.3/Folic/C/Biotin 1 each PO DAILY 12/16/20 12/16/20 Unknown History [Nephro-Nola Rx Tablet] sevelamer HCL [Sevelamer HCl] 800 mg PO TID 12/16/20 12/16/20 Unknown History Active Medications: Generic Name Dose Route Start Last Admin Trade Name Freq PRN Reason Stop Dose Admin Lipase/Protease/Amylase 1 each 12/22/20 10:34 Lipase 10,500/Protease 25,000/Amylase 43,750 (Units) Dr Lazar FEEDTUBE PRN PRN For Clogged Feeding Tube Dextrose 0 ml 12/16/20 03:40 12/18/20 08:23 Dextrose 50% In Water (25gm) 50 Ml Syringe IV 50 ml Q30MIN PRN Administration Hypoglycemia Protocol Sodium Chloride 1,000 mls @ 75 mls/hr 12/16/20 03:45 12/17/20 22:24 Nacl 0.9% 1000 Ml IV 75 mls/hr DIRECT JEET Administration Sodium Chloride 100 mls @ 999 mls/hr 12/16/20 08:09 Nacl 0.9% IV ROSA M PRN Hypotension Sodium Chloride 100 mls @ 999 mls/hr 12/20/20 09:20 Nacl 0.9% IV ROSA M PRN Hypotension Insulin Human Regular 0 units 12/16/20 07:30 12/22/20 08:07 Insulin Regular, Human 100 Units/1 Ml SUB-Q Not Given ACHS JEET Protocol Magnesium Hydroxide 30 ml 12/16/20 03:40 Magnesium Hydroxide (Mom) Oral Liqd Udc PO Q4H PRN Constipation Midodrine 5 mg 12/16/20 12:00 12/22/20 10:00 Midodrine 5 Mg Tab PO 5 mg TID@0800,1200,1600 JEET Administration Morphine Sulfate 0.5 mg 12/18/20 13:00 Morphine 2 Mg/1 Ml Inj IV Q6H PRN Pain, Moderate (4-6) Ondansetron HCl 4 mg 12/16/20 03:40 Ondansetron 4 Mg/2 Ml Inj IV Q8H PRN Nausea And Vomiting Simple Syrup 15 ml 12/22/20 08:19 Simple Syrup 15 Ml FEEDTUBE PRN PRN Hypoglycemia Simple Syrup 30 ml 12/22/20 08:19 Simple Syrup 15 Ml FEEDTUBE PRN PRN Hypoglycemia Sodium Bicarbonate 325 mg 12/22/20 10:34 Sodium Bicarbonate 325 Mg Tab FEEDTUBE PRN PRN For Clogged Feeding Tube Sodium Chloride 10 ml 12/16/20 10:00 12/22/20 10:01 Sodium Chloride 0.9% 10 Ml Flush Syringe IV 10 ml BID JEET Administration Sodium Chloride 10 ml 12/16/20 03:40 Sodium Chloride 0.9% 10 Ml Flush Syringe IV PRN PRN LINE FLUSH
--- NOTE | 2020-12-22 13:05 | Progress Note ---
Assessment and Plan Nonspecific Troponin elevation Dilated cardiomyopathy with EF 30-35%, mild to moderate mitral stenosis, moderate to severe mitral regurgitation, moderate to severe tricuspid regurgitation and severe pulmonary hypertension. ESRD Sepsis Altered Mental Status DM Recommend: Continue current therapy. Will add GDMT for cardiomyopathy and valvular heart disease as tolerated. Subjective Date of service: 12/22/20 Interval history: No acute events Objective Vital Signs Temp Pulse Pulse Resp BP Pulse Ox 12/22/20 12:00 90 14 115/36 100 12/22/20 11:00 88 20 111/33 94 12/22/20 10:00 91 H 28 H 112/21 99 12/22/20 09:27 100 12/22/20 09:00 89 18 112/21 100 12/22/20 08:00 87 21 112/21 100 12/22/20 07:00 89 14 127/39 100 12/22/20 06:00 91 H 21 131/35 100 12/22/20 05:00 90 18 131/35 99 12/22/20 04:00 93 H 26 H 136/34 100 12/22/20 03:37 98.5 F 12/22/20 03:36 99.3 F 12/22/20 03:00 93 H 16 136/34 100 12/22/20 02:00 90 25 H 112/41 96 12/22/20 01:00 90 22 112/28 94 12/22/20 00:25 94 H 12/22/20 00:00 100.6 F H 93 H 24 125/43 100 12/21/20 23:00 87 19 121/53 100 12/21/20 22:00 91 H 17 128/45 98 12/21/20 21:46 89 19 131/50 98 12/21/20 21:00 93 H 18 131/50 98 12/21/20 20:10 86 12/21/20 20:00 99.3 F 87 87 16 125/47 98 12/21/20 19:00 91 H 21 119/32 99 12/21/20 18:00 91 H 12 114/36 99 12/21/20 17:00 91 H 26 H 111/36 96 12/21/20 16:00 92 H 29 H 112/23 98 12/21/20 15:00 88 15 113/36 98 12/21/20 14:00 82 11 L 118/30 96 - Physical Examination General: No Apparent Distress HEENT: Positive: PERRL Neck: Positive: neck supple Cardiac: Positive: Reg Rate and Rhythm, Systolic Murmur Lungs: Positive: Rhonchi Neuro: Positive: Weakness Abdomen: Positive: Soft Skin: Positive: Clear Extremities: Absent: edema - Labs and Meds Cardiac Enzymes 12/22/20 Range/Units 05:06 AST 150 H (5-40) units/L CBC 12/22/20 Range/Units 05:06 WBC 7.8 (4.5-11.0) K/mm3 RBC 2.82 L (3.65-5.03) M/mm3 Hgb 8.8 L (10.1-14.3) gm/dl Hct 28.6 L (30.3-42.9) % Plt Count 67 L (140-440) K/mm3 Comprehensive Metabolic Panel 12/22/20 Range/Units 05:06 Sodium 138 D (137-145) mmol/L Potassium 4.6 D (3.6-5.0) mmol/L Chloride 100.5 (98-107) mmol/L Carbon Dioxide 22 (22-30) mmol/L BUN 30 H (7-17) mg/dL Creatinine 5.1 H (0.6-1.2) mg/dL Glucose 123 H (65-100) mg/dL Calcium 8.3 L (8.4-10.2) mg/dL AST 150 H (5-40) units/L ALT 644 H (7-56) units/L Alkaline Phosphatase 148 H (35-129) units/L Total Protein 5.6 L (6.3-8.2) g/dL Albumin 2.3 L (3.9-5) g/dL
[2020-12-22] MEDS: PANTOPRAZOLE 40 MG INJ IV SCH (15:18)
[2020-12-22 17:12] LABS: Hematocrit 31.3 % (30.3-42.9); Hemoglobin 9.4 gm/dl (10.1-14.3)
[2020-12-23 06:42] LABS: Hematocrit 28.1 % (30.3-42.9); Hemoglobin 8.8 gm/dl (10.1-14.3)
[2020-12-23 08:11] LABS: Hematocrit 30.3 % (30.3-42.9); Hemoglobin 9.6 gm/dl (10.1-14.3); Mean Corpuscular HGB Conc 32 % (30-34); Mean Corpuscular Volume 100 fl (79-97); Red Blood Count 3.03 M/mm3 (3.65-5.03)
--- NOTE | 2020-12-23 08:40 | Progress Note ---
Assessment and Plan Assessment and plan: (1) Altered mental status Current Visit: Yes Status: Acute Plan to address problem: Possibly secondary to multiple underlying problems including possible sepsis, end-stage renal disease with hyperkalemia and elevated liver enzymes. Will monitor mental status. Sepsis, POA Completed Cefepime and Vancomycin ID following Thrombocytopenia may be due to Sepsis. To r/o HIT Plaletets getting lower 67 today She did not get any Heparin this admission but got Heparin last admission just few days earlier Obtain HIT test Consult Hematology ESRD (end stage renal disease) Current Visit: No Status: Acute Plan to address problem: We will place consult to nephrology for evaluation. Hyperkalemia Current Visit: No Status: Acute Plan to address problem: Possibly secondary to the end-stage renal disease. Patient will be given Kayexalate, insulin/glucose, sodium bicarb and will monitor potassium levels. Elevated liver enzymes Current Visit: Yes Status: Acute Plan to address problem: Etiology is unclear. We will request gastroenterology evaluation. We will also check hepatitis profile. Elevated troponin Current Visit: Yes Status: Acute Plan to address problem: Possibly secondary to the underlying end-stage renal disease versus sepsis. However we trend cardiac enzymes and request cardiology evaluation and recommendations. Diabetes mellitus Current Visit: Yes Status: Acute Plan to address problem: Patient placed on sliding scale insulin. We will monitor Accu-Cheks closely. DVT prophylaxis Current Visit: Yes Status: Acute Plan to address problem: Patient currently on anticoagulation with Eliquis. Full code status Current Visit: Yes Status: Acute Plan to address problem: Patient is full code. 12/17/20 Patient with ESRD on hemodialysis presents with altered mental status, acute metabolic encephalopathy. Also has markedly elevated AST and ALT GI consulted. Her LFTs were normal last admission just 5 days ago. 12/18/20 Patient with ESRD on hemodialysis. Rapid response called this morning. She is very lethargic, minimal responsive. Bld glucose 45mg/dl and BP 74/15. She was given 1 amp D50. Blood glucose now 163. BP up to 123/30 but MAP still under 65. Will give 500 ml Normal Saline and transfer to IM.I discussed with Dr. Chong, Nephrology. LFTs improving though still very high. 12/19/20 Patient with ESRD on hemodialysis. Rapid response called yesterday for hypoglycemia and hypotension, so transferred to IM. Blood glucose normalized. BP improved. 12/20/20 Patient with ESRD on hemodialysis. Presented with altered mental status. Was transferred to [facility] on 12/18/20. Still has altered mental status, very lethargic. MRI ordered. Neurology consulted. 12/21/20 Patient with ESRD on hemodialysis. Presented with altered mental status. Was transferred to [facility] on 12/18/20. Still has altered mental status, very lethargic. MRI ordered. EEG ordered. Patient ws evaluated by Neurology. Will talk to family. 12/22/20 Patient with ESRD on hemodialysis, diabetes,hypertension. She presented with altered mental status. She has been diagnosed with sepsis(POA), hypoglycemia, hypotension, thrombocytopenia. Was transferred to [facility] on 12/18/20 because of episode of hypoglycemia and hypotension. . Still has altered mental status, very lethargic. Neurology was consulted MRI ordered. EEG ordered. I spoke to daughter Michelle Kruger yesterday and gave update. For thrombocytopenia, will obtain HIT. Consult Hematology For blood in stool, will re-consult GI. Check H/H serially Elevated LFTs likely due to shock liver, improving 12/23/20 Patient with ESRD on hemodialysis, diabetes,hypertension. She presented with altered mental status. She has been diagnosed with sepsis(POA), hypoglycemia, hypotension, thrombocytopenia. Was transferred to [facility] on 12/18/20 because of episode of hypoglycemia and hypotension. . Still has altered mental status, very lethargic. Neurology was consulted MRI ordered. EEG ordered. I spoke to daughter Michelle Kruger few days ago and gave update. Patient has thrombocytopenia, worsening 54 today. Consult Hematology. HIT ordered For blood in stool, will re-consult GI. Check H/H serially Elevated LFTs likely due to shock liver, improving. Was initially evaluated by GI patient stable to transfer back to [facility] since BP stable. 12/11/ History Interval history: Still Altered mental status Patient transferred to [facility] on 12/18 Nurse reports streaks of blood in stool Hospitalist Physical - Physical exam Narrative exam: Gen: Not in acute distress, HEENT: Normocephalic, atraumatic Neck : supple, no JVD Lungs:clear to auscultation bilaterally, no wheeze Heart:S1 and S2 reg, no murmurs, rubs or gallop Abd: Soft , non tender, non distended, normal bowel sounds Ext: No edema, no clubbing, no cyanosis Neuro: lethargic, - Constitutional Vitals: Temp Pulse Resp BP Pulse Ox 98.8 F 87 19 127/35 100 12/23/20 08:34 12/23/20 07:00 12/23/20 07:00 12/23/20 07:00 12/23/20 08:36 General appearance: Present: no acute distress HEART Score - HEART Score Troponin: Troponin T 0.731 ng/mL (0.00-0.029) H* 12/16/20 05:48 Results - Labs CBC & Chem 7: 12/23/20 07:31 12/22/20 05:06 Labs: Laboratory Last Values WBC 7.8 K/mm3 (4.5-11.0) 12/22/20 05:06 RBC 2.82 M/mm3 (3.65-5.03) L 12/22/20 05:06 Hgb 8.8 gm/dl (10.1-14.3) L 12/23/20 06:06 Hct 28.1 % (30.3-42.9) L 12/23/20 06:06 MCV 101 fl (79-97) H 12/22/20 05:06 MCH 31 pg (28-32) 12/22/20 05:06 MCHC 31 % (30-34) 12/22/20 05:06 RDW 23.8 % (13.2-15.2) H 12/22/20 05:06 Plt Count 67 K/mm3 (140-440) L 12/22/20 05:06 Lymph % (Auto) 9.7 % (13.4-35.0) L 12/17/20 05:42 Peach % (Auto) 8.3 % (0.0-7.3) H 12/17/20 05:42 Eos % (Auto) 3.0 % (0.0-4.3) 12/17/20 05:42 Baso % (Auto) 0.8 % (0.0-1.8) 12/17/20 05:42 Lymph # (Auto) 1.2 K/mm3 (1.2-5.4) 12/17/20 05:42 Peach # (Auto) 1.0 K/mm3 (0.0-0.8) H 12/17/20 05:42 Eos # (Auto) 0.4 K/mm3 (0.0-0.4) 12/17/20 05:42 Baso # (Auto) 0.1 K/mm3 (0.0-0.1) 12/17/20 05:42 Seg Neutrophils % 78.2 % (40.0-70.0) H 12/17/20 05:42 Seg Neutrophils # 9.4 K/mm3 (1.8-7.7) H 12/17/20 05:42 PT 26.3 Sec. (12.2-14.9) H 12/17/20 05:42 INR 2.36 (0.87-1.13) H 12/17/20 05:42 APTT 39.9 Sec. (24.2-36.6) H 12/16/20 00:57 Thrombin Time 16.9 Sec. (15.1-19.6) 12/16/20 00:57 VBG pH 7.334 (7.320-7.420) 12/16/20 00:57 Sodium 138 mmol/L (137-145) D 12/22/20 05:06 Potassium 4.6 mmol/L (3.6-5.0) D 12/22/20 05:06 Chloride 100.5 mmol/L (98-107) 12/22/20 05:06 Carbon Dioxide 22 mmol/L (22-30) 12/22/20 05:06 Anion Gap 20 mmol/L 12/22/20 05:06 BUN 30 mg/dL (7-17) H 12/22/20 05:06 Creatinine 5.1 mg/dL (0.6-1.2) H 12/22/20 05:06 Estimated GFR 10 ml/min 12/22/20 05:06 BUN/Creatinine Ratio 6 % 12/22/20 05:06 Glucose 123 mg/dL (65-100) H 12/22/20 05:06 POC Glucose 174 mg/dL (70-105) H 12/23/20 08:14 Hemoglobin A1c 7.1 % (4-6) H 12/18/20 05:57 Lactic Acid 2.40 mmol/L (0.7-2.0) H* 12/16/20 10:35 Calcium 8.3 mg/dL (8.4-10.2) L 12/22/20 05:06 Total Bilirubin 2.70 mg/dL (0.1-1.2) H 12/22/20 05:06 Direct Bilirubin 1.2 mg/dL (0-0.2) H 12/19/20 06:59 Indirect Bilirubin 0.5 mg/dL 12/19/20 06:59 AST 150 units/L (5-40) H 12/22/20 05:06 ALT 644 units/L (7-56) H 12/22/20 05:06 Alkaline Phosphatase 148 units/L (35-129) H 12/22/20 05:06 Ammonia 27.0 umol/L (25-60) 12/16/20 00:57 Total Creatine Kinase 84 units/L (30-135) 12/16/20 00:57 CK-MB (CK-2) 5.1 ng/mL (0.0-4.0) H 12/16/20 00:57 CK-MB (CK-2) Rel Index 6.0 (0-4) H 12/16/20 00:57 Troponin T 0.731 ng/mL (0.00-0.029) H* 12/16/20 05:48 Total Protein 5.6 g/dL (6.3-8.2) L 12/22/20 05:06 Albumin 2.3 g/dL (3.9-5) L 12/22/20 05:06 Albumin/Globulin Ratio 0.7 % 12/22/20 05:06 Triglycerides 104 mg/dL (2-149) 12/16/20 00:57 Cholesterol 110 mg/dL (50-199) 12/16/20 00:57 LDL Cholesterol Direct 34 mg/dL (50-130) L 12/16/20 00:57 HDL Cholesterol 64 mg/dL (40-59) H 12/16/20 00:57 Cholesterol/HDL Ratio 1.71 % 12/16/20 00:57 TSH 4.000 mlU/mL (0.270-4.200) 12/17/20 05:42 Free T4 1.54 ng/dL (0.76-1.46) H 12/16/20 00:57 Random Vancomycin 14.3 ug/mL (0-40.0) 12/18/20 05:57 Acetaminophen 5.0 ug/mL (10.0-30.0) L 12/16/20 05:48 Plasma/Serum Alcohol < 0.01 % (0-0.07) 12/16/20 00:57 JULIA Screen Positive (Negative) H 12/17/20 05:42 Hepatitis A IgM Ab Non-reactive (NonReactive) 12/16/20 03:55 Hep Bs Antigen Non-reactive (Negative) 12/16/20 03:55 Hep B Core IgM Ab Non-reactive (NonReactive) 12/16/20 03:55 Hepatitis C Antibody Non-reactive (NonReactive) 12/16/20 03:55 Microbiology: Microbiology 12/22/20 17:45 Stool Stool Occult Blood (JONAS) - Final [place]/IV: Voiding Method Incontinent Active Medications - Current Medications Current Medications: Generic Name Dose Route Start Last Admin Trade Name Freq PRN Reason Stop Dose Admin Lipase/Protease/Amylase 1 each 12/22/20 10:34 Lipase 10,500/Protease 25,000/Amylase 43,750 (Units) Dr Lazar FEEDTUBE PRN PRN For Clogged Feeding Tube Dextrose 0 ml 12/16/20 03:40 12/18/20 08:23 Dextrose 50% In Water (25gm) 50 Ml Syringe IV 50 ml Q30MIN PRN Administration Hypoglycemia Protocol Sodium Chloride 1,000 mls @ 75 mls/hr 12/16/20 03:45 12/17/20 22:24 Nacl 0.9% 1000 Ml IV 75 mls/hr DIRECT JEET Administration Sodium Chloride 100 mls @ 999 mls/hr 12/16/20 08:09 Nacl 0.9% IV ROSA M PRN Hypotension Sodium Chloride 100 mls @ 999 mls/hr 12/20/20 09:20 Nacl 0.9% IV ROSA M PRN Hypotension Insulin Human Regular 0 units 12/16/20 07:30 12/22/20 22:50 Insulin Regular, Human 100 Units/1 Ml SUB-Q Not Given ACHS JEET Protocol Magnesium Hydroxide 30 ml 12/16/20 03:40 Magnesium Hydroxide (Mom) Oral Liqd Udc PO Q4H PRN Constipation Midodrine 5 mg 12/16/20 12:00 12/22/20 16:20 Midodrine 5 Mg Tab PO 5 mg TID@0800,1200,1600 JEET Administration Morphine Sulfate 0.5 mg 12/18/20 13:00 Morphine 2 Mg/1 Ml Inj IV Q6H PRN Pain, Moderate (4-6) Ondansetron HCl 4 mg 12/16/20 03:40 Ondansetron 4 Mg/2 Ml Inj IV Q8H PRN Nausea And Vomiting Pantoprazole Sodium 40 mg 12/22/20 14:00 12/22/20 15:18 Pantoprazole 40 Mg Inj IV 40 mg QDAY JEET Administration Simple Syrup 15 ml 12/22/20 08:19 Simple Syrup 15 Ml FEEDTUBE PRN PRN Hypoglycemia Simple Syrup 30 ml 12/22/20 08:19 Simple Syrup 15 Ml FEEDTUBE PRN PRN Hypoglycemia Sodium Bicarbonate 325 mg 12/22/20 10:34 Sodium Bicarbonate 325 Mg Tab FEEDTUBE PRN PRN For Clogged Feeding Tube Sodium Chloride 10 ml 12/16/20 10:00 12/22/20 22:50 Sodium Chloride 0.9% 10 Ml Flush Syringe IV 10 ml BID JEET Administration Sodium Chloride 10 ml 12/16/20 03:40 Sodium Chloride 0.9% 10 Ml Flush Syringe IV PRN PRN LINE FLUSH Nutrition/Malnutrition Assess - Dietary Evaluation Nutrition/Malnutrition Findings: Nutrition Notes Start: 12/16/20 14:32 Freq: Status: Active Protocol: Document 12/22/20 10:36 (Rec: 12/22/20 10:52 [email or web address]) Nutrition Notes Need for Assessment generated from: MD Order Initial or Follow up Reassessment Current Diagnosis CKD (stage V CKD),Diabetes, Hypertension Other Pertinent Diagnosis AMS, Elevated LFTs Current Diet NPO Labs/Tests BUN 30 Cr 5.1 Pertinent Medications reviewed Height 5 ft 6 in Weight 68.3 kg [place] Body Weight (kg) 59.09 BMI 24.3 Weight Status Appropriate Subjective/Other Information MD consult for TF. Burn Absent Trauma Absent Minimum of two criteria No physical signs of malnutrition #1 Nutrition Diagnosis Increased nutrient needs ( specify in comment below) Diagnosis Progress(for reassessment Continues documentation) Is patient on ventilator? No Is Patient Ambulatory and/or Out of Bed No REE-([facility]-confined to bed) 2472.526 Calculation Used for Recommendations [facility] Additional Notes Protein: 1.25-1.5g/kg (76-92g) Fluid: 1 ml/kcal or per MD Nutrition Intervention Change Diet Order: Start TF Nutrition Support: Nepro 1.8 at 35 ml/hr Flush 150 ml q4h Kcal 1,512 Protein (gm) 68 Fluid (mL) 611 Goal #1 Meet at least 75% of energy and protein needs via TF Goal #2 wound healing Anticipated Discharge Needs: unable to determine at this time Follow-Up By: 12/24/20 Additional Comments F/u: TF start and tolerance
[2020-12-23 08:50] LABS: Red Cell Distribution Width 25.2 % (13.2-15.2)
[2020-12-23 08:51] LABS: Platelet Count 54 K/mm3 (140-440)
[2020-12-23] MEDS: MIDODRINE 5 MG TAB PO SCH ×3 (09:02→17:41)
[2020-12-23] MEDS: INSULIN REGULAR, HUMAN 100 UNITS/1 ML SUB-Q SCH ×3 (09:03→17:41)
[2020-12-23] MEDS: PANTOPRAZOLE 40 MG INJ IV SCH (09:03)
--- NOTE | 2020-12-23 10:58 | Progress Note ---
Assessment and Plan Assessment and Plan Assessment and plan: (1) Altered mental status Current Visit: Yes Status: Acute Plan to address problem: Possibly secondary to multiple underlying problems including possible sepsis, end-stage renal disease with hyperkalemia and elevated liver enzymes. Will monitor mental status. Sepsis, POA Completed Cefepime and Vancomycin ID following Thrombocytopenia may be due to Sepsis. To r/o HIT Plaletets getting lower 67 today She did not get any Heparin this admission but got Heparin last admission just few days earlier Obtain HIT test Consult Hematology ESRD (end stage renal disease) Current Visit: No Status: Acute Plan to address problem: We will place consult to nephrology for evaluation. Hyperkalemia Current Visit: No Status: Acute Plan to address problem: Possibly secondary to the end-stage renal disease. Patient will be given Kayexalate, insulin/glucose, sodium bicarb and will monitor potassium levels. Elevated liver enzymes Current Visit: Yes Status: Acute Plan to address problem: Etiology is unclear. We will request gastroenterology evaluation. We will also check hepatitis profile. Elevated troponin Current Visit: Yes Status: Acute Plan to address problem: Possibly secondary to the underlying end-stage renal disease versus sepsis. However we trend cardiac enzymes and request cardiology evaluation and recommendations. Diabetes mellitus Current Visit: Yes Status: Acute Plan to address problem: Patient placed on sliding scale insulin. We will monitor Accu-Cheks closely. DVT prophylaxis Current Visit: Yes Status: Acute Plan to address problem: Patient currently on anticoagulation with Eliquis. Full code status Current Visit: Yes Status: Acute Plan to address problem: Patient is full code. # Patient with ESRD on hemodialysis presents with altered mental status, acute metabolic encephalopathy. Also has markedly elevated AST and ALT GI consulted. Her LFTs were normal last admission just 5 days ago. Initially she was very lethargic, minimal responsive. Bld glucose 45mg/dl and BP 74/15. She was given 1 amp D50. Blood glucose now 163. BP up to 123/30 but MAP still under 65. Will give 500 ml Normal Saline and transfer to [facility]. # Patient with ESRD on hemodialysis. - Presented with altered mental status. -Was transferred to [facility] on 12/18/20. - Still has altered mental status, not follow command -MRI brain is with no acute event - EEG ordered. # She has been diagnosed with sepsis(POA), hypoglycemia, hypotension, thromboc ytopenia. # thrombocytopenia, # Elevated LFTs likely due to shock liver, improving # Positive JULIA -check -ESR -DSDNA -rh factor PLAN 1- EEG 2- review ADNA 3- ESR 4-Post anoxic injury can not be excluded!!! will follow Subjective Date of service: 12/23/20 Principal diagnosis: change in mentation,ESRD Interval history: awak not follow command slight withdrawal to pain , may be some time squeeze hand ? no reported seizure MRI brain is with no acute finding she is with left facial droop. Objective - Vital Sign Vital Signs - 12hr 12/22/20 12/23/20 12/23/20 23:00 00:00 00:05 Temperature 98.5 F Pulse Rate 84 85 84 Pulse Rate [ 87 From Monitor] Respiratory 14 17 Rate Blood Pressure 120/47 123/25 O2 Sat by Pulse 99 100 Oximetry 12/23/20 12/23/20 12/23/20 01:00 02:00 03:00 Temperature Pulse Rate 87 85 86 Pulse Rate [ From Monitor] Respiratory 20 20 15 Rate Blood Pressure 130/21 121/29 127/32 O2 Sat by Pulse 100 96 100 Oximetry 12/23/20 12/23/20 12/23/20 04:00 05:00 06:00 Temperature 98.9 F Pulse Rate 86 89 90 Pulse Rate [ From Monitor] Respiratory 18 15 18 Rate Blood Pressure 129/61 134/69 134/69 O2 Sat by Pulse 99 100 100 Oximetry 12/23/20 12/23/20 12/23/20 07:00 08:00 08:34 Temperature 98.8 F Pulse Rate 87 88 Pulse Rate [ 82 From Monitor] Respiratory 19 20 Rate Blood Pressure 127/35 118/34 O2 Sat by Pulse 100 100 Oximetry 12/23/20 08:36 Temperature Pulse Rate Pulse Rate [ From Monitor] Respiratory Rate Blood Pressure O2 Sat by Pulse 100 Oximetry - General Apperance Constitutional: uncomfortable - EENT EENT: PERRL, mucous membranes moist - Respiratory Respiratory: lungs clear, rhonchi - Cardiovascular Cardiovascular: normal S1, normal S2 Extremities: no peripheral edema bilat, chronic venous stasis chg - Gastrointestinal Gastrointestinal: normoactive bowel sounds - Integumentary Integumentary: normal - Neurologic Cranial nerve examination: other (left facial droop is noted ) Detailed motor examination: other (slight withdrawal to pain stimuli both lower and upper slightly squeeze hand to stimuli ) - Psychiatric Psychiatric: other (no speech output just moan at time ) - Laboratory Findings CBC and BMP: 12/23/20 07:31 12/22/20 05:06 Abnormal Lab Findings: Abnormal Labs 12/16/20 12/16/20 12/16/20 00:38 00:57 00:57 WBC 18.2 H RBC 3.13 L Hgb 9.4 L Hct MCV 100 H RDW 22.7 H Plt Count Lymph % (Auto) 8.0 L Adams % (Auto) 7.8 H Adams # (Auto) 1.4 H Seg Neutrophils % 83.4 H Seg Neutrophils # 15.2 H PT 29.9 H INR 2.80 H APTT 39.9 H Sodium Potassium Chloride Carbon Dioxide BUN Creatinine Glucose POC Glucose 116 H Hemoglobin A1c Lactic Acid Calcium Total Bilirubin Direct Bilirubin AST ALT Alkaline Phosphatase CK-MB (CK-2) CK-MB (CK-2) Rel Index Troponin T Total Protein Albumin LDL Cholesterol Direct HDL Cholesterol TSH Free T4 Acetaminophen JULIA Screen 12/16/20 12/16/20 12/16/20 00:57 00:57 00:57 WBC RBC Hgb Hct MCV RDW Plt Count Lymph % (Auto) Adams % (Auto) Adams # (Auto) Seg Neutrophils % Seg Neutrophils # PT INR APTT Sodium 136 L Potassium 5.4 H Chloride 94.2 L Carbon Dioxide 18 L D BUN 34 H Creatinine 5.6 H Glucose 108 H POC Glucose Hemoglobin A1c Lactic Acid 8.10 H* Calcium Total Bilirubin 1.30 H Direct Bilirubin AST 2838 H ALT 1353 H Alkaline Phosphatase 186 H CK-MB (CK-2) 5.1 H CK-MB (CK-2) Rel Index 6.0 H Troponin T 0.720 H* Total Protein Albumin 3.2 L LDL Cholesterol Direct 34 L HDL Cholesterol 64 H TSH 6.720 H Free T4 1.54 H Acetaminophen JULIA Screen 12/16/20 12/16/20 12/16/20 01:45 05:48 05:48 WBC RBC Hgb Hct MCV RDW Plt Count Lymph % (Auto) Adams % (Auto) Adams # (Auto) Seg Neutrophils % Seg Neutrophils # PT INR APTT Sodium Potassium Chloride Carbon Dioxide BUN Creatinine Glucose POC Glucose Hemoglobin A1c Lactic Acid 6.60 H* 6.00 H* Calcium Total Bilirubin Direct Bilirubin AST ALT Alkaline Phosphatase CK-MB (CK-2) CK-MB (CK-2) Rel Index Troponin T 0.731 H* Total Protein Albumin LDL Cholesterol Direct HDL Cholesterol TSH Free T4 Acetaminophen JULIA Screen 12/16/20 12/16/20 12/16/20 05:48 05:48 07:57 WBC RBC Hgb Hct MCV RDW Plt Count Lymph % (Auto) Adams % (Auto) Adams # (Auto) Seg Neutrophils % Seg Neutrophils # PT INR APTT Sodium Potassium Chloride Carbon Dioxide BUN Creatinine Glucose POC Glucose 115 H 118 H Hemoglobin A1c Lactic Acid Calcium Total Bilirubin Direct Bilirubin AST ALT Alkaline Phosphatase CK-MB (CK-2) CK-MB (CK-2) Rel Index Troponin T Total Protein Albumin LDL Cholesterol Direct HDL Cholesterol TSH Free T4 Acetaminophen 5.0 L JULIA Screen 12/16/20 12/16/20 12/16/20 10:35 11:30 16:12 WBC RBC Hgb Hct MCV RDW Plt Count Lymph % (Auto) Adams % (Auto) Adams # (Auto) Seg Neutrophils % Seg Neutrophils # PT INR APTT Sodium Potassium Chloride Carbon Dioxide BUN Creatinine Glucose POC Glucose 124 H 115 H Hemoglobin A1c Lactic Acid 2.40 H* Calcium Total Bilirubin Direct Bilirubin AST ALT Alkaline Phosphatase CK-MB (CK-2) CK-MB (CK-2) Rel Index Troponin T Total Protein Albumin LDL Cholesterol Direct HDL Cholesterol TSH Free T4 Acetaminophen JULIA Screen 12/16/20 12/17/20 12/17/20 21:00 05:42 05:42 WBC 12.0 H RBC 2.52 L Hgb 7.6 L Hct 24.6 L D MCV 98 H RDW 22.7 H Plt Count 137 L Lymph % (Auto) 9.7 L Adams % (Auto) 8.3 H Adams # (Auto) 1.0 H Seg Neutrophils % 78.2 H Seg Neutrophils # 9.4 H PT 26.3 H INR 2.36 H APTT Sodium Potassium Chloride Carbon Dioxide BUN Creatinine Glucose POC Glucose 149 H Hemoglobin A1c Lactic Acid Calcium Total Bilirubin Direct Bilirubin AST ALT Alkaline Phosphatase CK-MB (CK-2) CK-MB (CK-2) Rel Index Troponin T Total Protein Albumin LDL Cholesterol Direct HDL Cholesterol TSH Free T4 Acetaminophen JULIA Screen 12/17/20 12/17/20 12/17/20 05:42 05:42 05:42 WBC RBC Hgb Hct MCV RDW Plt Count Lymph % (Auto) Adams % (Auto) Adams # (Auto) Seg Neutrophils % Seg Neutrophils # PT INR APTT Sodium Potassium Chloride Carbon Dioxide BUN 28 H Creatinine 4.5 H Glucose 176 H POC Glucose Hemoglobin A1c Lactic Acid Calcium Total Bilirubin Direct Bilirubin 0.6 H AST 1744 H ALT 1938 H Alkaline Phosphatase 158 H CK-MB (CK-2) CK-MB (CK-2) Rel Index Troponin T Total Protein 5.7 L Albumin 2.7 L LDL Cholesterol Direct HDL Cholesterol TSH Free T4 Acetaminophen JULIA Screen Positive H 12/17/20 12/17/20 12/17/20 09:54 12:30 16:32 WBC RBC Hgb Hct MCV RDW Plt Count Lymph % (Auto) Adams % (Auto) Adams # (Auto) Seg Neutrophils % Seg Neutrophils # PT INR APTT Sodium Potassium Chloride Carbon Dioxide BUN Creatinine Glucose POC Glucose 150 H 154 H 146 H Hemoglobin A1c Lactic Acid Calcium Total Bilirubin Direct Bilirubin AST ALT Alkaline Phosphatase CK-MB (CK-2) CK-MB (CK-2) Rel Index Troponin T Total Protein Albumin LDL Cholesterol Direct HDL Cholesterol TSH Free T4 Acetaminophen JULIA Screen 12/17/20 12/18/20 12/18/20 20:26 05:57 05:57 WBC 14.8 H RBC 2.70 L Hgb 8.2 L Hct 27.5 L MCV 102 H RDW 22.5 H Plt Count 87 L Lymph % (Auto) Adams % (Auto) Adams # (Auto) Seg Neutrophils % Seg Neutrophils # PT INR APTT Sodium Potassium Chloride Carbon Dioxide 18 L D BUN 36 H Creatinine 6.0 H Glucose 63 L POC Glucose 107 H Hemoglobin A1c Lactic Acid Calcium Total Bilirubin 1.30 H Direct Bilirubin AST 1403 H ALT 1839 H Alkaline Phosphatase 149 H CK-MB (CK-2) CK-MB (CK-2) Rel Index Troponin T Total Protein 5.6 L Albumin 2.6 L LDL Cholesterol Direct HDL Cholesterol TSH Free T4 Acetaminophen JULIA Screen 12/18/20 12/18/20 12/18/20 05:57 08:03 08:14 WBC RBC Hgb Hct MCV RDW Plt Count Lymph % (Auto) Adams % (Auto) Adams # (Auto) Seg Neutrophils % Seg Neutrophils # PT INR APTT Sodium Potassium Chloride Carbon Dioxide BUN Creatinine Glucose POC Glucose 45 L 163 H Hemoglobin A1c 7.1 H Lactic Acid Calcium Total Bilirubin Direct Bilirubin AST ALT Alkaline Phosphatase CK-MB (CK-2) CK-MB (CK-2) Rel Index Troponin T Total Protein Albumin LDL Cholesterol Direct HDL Cholesterol TSH Free T4 Acetaminophen JULIA Screen 12/18/20 12/18/20 12/18/20 10:04 11:40 18:00 WBC RBC Hgb Hct MCV RDW Plt Count Lymph % (Auto) Adams % (Auto) Adams # (Auto) Seg Neutrophils % Seg Neutrophils # PT INR APTT Sodium Potassium Chloride Carbon Dioxide BUN Creatinine Glucose POC Glucose 129 H 128 H 161 H Hemoglobin A1c Lactic Acid Calcium Total Bilirubin Direct Bilirubin AST ALT Alkaline Phosphatase CK-MB (CK-2) CK-MB (CK-2) Rel Index Troponin T Total Protein Albumin LDL Cholesterol Direct HDL Cholesterol TSH Free T4 Acetaminophen JULIA Screen 12/18/20 12/19/20 12/19/20 21:40 01:26 05:49 WBC RBC Hgb Hct MCV RDW Plt Count Lymph % (Auto) Adams % (Auto) Adams # (Auto) Seg Neutrophils % Seg Neutrophils # PT INR APTT Sodium Potassium Chloride Carbon Dioxide BUN Creatinine Glucose POC Glucose 138 H 148 H 136 H Hemoglobin A1c Lactic Acid Calcium Total Bilirubin Direct Bilirubin AST ALT Alkaline Phosphatase CK-MB (CK-2) CK-MB (CK-2) Rel Index Troponin T Total Protein Albumin LDL Cholesterol Direct HDL Cholesterol TSH Free T4 Acetaminophen JULIA Screen 12/19/20 12/19/20 12/19/20 06:59 06:59 08:38 WBC 12.1 H RBC 2.76 L Hgb 8.5 L Hct 27.8 L MCV 101 H RDW 22.3 H Plt Count 82 L Lymph % (Auto) Adams % (Auto) Adams # (Auto) Seg Neutrophils % Seg Neutrophils # PT INR APTT Sodium 147 H Potassium Chloride Carbon Dioxide BUN 21 H Creatinine 3.9 H Glucose 144 H POC Glucose 139 H Hemoglobin A1c Lactic Acid Calcium Total Bilirubin 1.70 H Direct Bilirubin 1.2 H AST 871 H ALT 1552 H Alkaline Phosphatase 146 H CK-MB (CK-2) CK-MB (CK-2) Rel Index Troponin T Total Protein 5.6 L Albumin 2.7 L LDL Cholesterol Direct HDL Cholesterol TSH Free T4 Acetaminophen JULIA Screen 12/19/20 12/19/20 12/19/20 11:45 16:01 22:03 WBC RBC Hgb Hct MCV RDW Plt Count Lymph % (Auto) Adams % (Auto) Adams # (Auto) Seg Neutrophils % Seg Neutrophils # PT INR APTT Sodium Potassium Chloride Carbon Dioxide BUN Creatinine Glucose POC Glucose 138 H 141 H 121 H Hemoglobin A1c Lactic Acid Calcium Total Bilirubin Direct Bilirubin AST ALT Alkaline Phosphatase CK-MB (CK-2) CK-MB (CK-2) Rel Index Troponin T Total Protein Albumin LDL Cholesterol Direct HDL Cholesterol TSH Free T4 Acetaminophen JULIA Screen 12/20/20 12/20/20 12/20/20 03:18 05:46 05:48 WBC RBC Hgb Hct MCV RDW Plt Count Lymph % (Auto) Adams % (Auto) Adams # (Auto) Seg Neutrophils % Seg Neutrophils # PT INR APTT Sodium 146 H Potassium Chloride 109.6 H Carbon Dioxide 21 L BUN 32 H Creatinine 5.5 H Glucose 124 H POC Glucose 142 H 125 H Hemoglobin A1c Lactic Acid Calcium Total Bilirubin Direct Bilirubin AST ALT Alkaline Phosphatase CK-MB (CK-2) CK-MB (CK-2) Rel Index Troponin T Total Protein Albumin LDL Cholesterol Direct HDL Cholesterol TSH Free T4 Acetaminophen JULIA Screen 12/20/20 12/20/20 12/20/20 10:26 12:32 12:38 WBC RBC 2.64 L Hgb 8.1 L Hct 26.2 L MCV 99 H RDW 22.8 H Plt Count 82 L Lymph % (Auto) Adams % (Auto) Adams # (Auto) Seg Neutrophils % Seg Neutrophils # PT INR APTT Sodium Potassium Chloride Carbon Dioxide BUN Creatinine Glucose POC Glucose 139 H 136 H Hemoglobin A1c Lactic Acid Calcium Total Bilirubin Direct Bilirubin AST ALT Alkaline Phosphatase CK-MB (CK-2) CK-MB (CK-2) Rel Index Troponin T Total Protein Albumin LDL Cholesterol Direct HDL Cholesterol TSH Free T4 Acetaminophen JULIA Screen 12/20/20 12/20/20 12/20/20 16:05 20:00 23:23 WBC RBC Hgb Hct MCV RDW Plt Count Lymph % (Auto) Adams % (Auto) Adams # (Auto) Seg Neutrophils % Seg Neutrophils # PT INR APTT Sodium Potassium Chloride Carbon Dioxide BUN Creatinine Glucose POC Glucose 123 H 116 H 112 H Hemoglobin A1c Lactic Acid Calcium Total Bilirubin Direct Bilirubin AST ALT Alkaline Phosphatase CK-MB (CK-2) CK-MB (CK-2) Rel Index Troponin T Total Protein Albumin LDL Cholesterol Direct HDL Cholesterol TSH Free T4 Acetaminophen JULIA Screen 12/21/20 12/21/20 12/22/20 08:38 11:21 03:28 WBC RBC Hgb Hct MCV RDW Plt Count Lymph % (Auto) Adams % (Auto) Adams # (Auto) Seg Neutrophils % Seg Neutrophils # PT INR APTT Sodium Potassium Chloride Carbon Dioxide BUN Creatinine Glucose POC Glucose 127 H 117 H 125 H Hemoglobin A1c Lactic Acid Calcium Total Bilirubin Direct Bilirubin AST ALT Alkaline Phosphatase CK-MB (CK-2) CK-MB (CK-2) Rel Index Troponin T Total Protein Albumin LDL Cholesterol Direct HDL Cholesterol TSH Free T4 Acetaminophen JULIA Screen 12/22/20 12/22/20 12/22/20 05:06 05:06 07:42 WBC RBC 2.82 L Hgb 8.8 L Hct 28.6 L MCV 101 H RDW 23.8 H Plt Count 67 L Lymph % (Auto) Adams % (Auto) Adams # (Auto) Seg Neutrophils % Seg Neutrophils # PT INR APTT Sodium Potassium Chloride Carbon Dioxide BUN 30 H Creatinine 5.1 H Glucose 123 H POC Glucose 117 H Hemoglobin A1c Lactic Acid Calcium 8.3 L Total Bilirubin 2.70 H Direct Bilirubin AST 150 H ALT 644 H Alkaline Phosphatase 148 H CK-MB (CK-2) CK-MB (CK-2) Rel Index Troponin T Total Protein 5.6 L Albumin 2.3 L LDL Cholesterol Direct HDL Cholesterol TSH Free T4 Acetaminophen JULIA Screen 12/22/20 12/22/20 12/22/20 11:45 16:22 16:37 WBC RBC Hgb 9.4 L Hct MCV RDW Plt Count Lymph % (Auto) Adams % (Auto) Adams # (Auto) Seg Neutrophils % Seg Neutrophils # PT INR APTT Sodium Potassium Chloride Carbon Dioxide BUN Creatinine Glucose POC Glucose 113 H 115 H Hemoglobin A1c Lactic Acid Calcium Total Bilirubin Direct Bilirubin AST ALT Alkaline Phosphatase CK-MB (CK-2) CK-MB (CK-2) Rel Index Troponin T Total Protein Albumin LDL Cholesterol Direct HDL Cholesterol TSH Free T4 Acetaminophen JULIA Screen 12/22/20 12/22/20 12/23/20 19:52 23:35 04:17 WBC RBC Hgb Hct MCV RDW Plt Count Lymph % (Auto) Adams % (Auto) Adams # (Auto) Seg Neutrophils % Seg Neutrophils # PT INR APTT Sodium Potassium Chloride Carbon Dioxide BUN Creatinine Glucose POC Glucose 119 H 143 H 170 H Hemoglobin A1c Lactic Acid Calcium Total Bilirubin Direct Bilirubin AST ALT Alkaline Phosphatase CK-MB (CK-2) CK-MB (CK-2) Rel Index Troponin T Total Protein Albumin LDL Cholesterol Direct HDL Cholesterol TSH Free T4 Acetaminophen JULIA Screen 12/23/20 12/23/20 12/23/20 06:06 07:31 08:14 WBC RBC 3.03 L Hgb 8.8 L 9.6 L Hct 28.1 L MCV 100 H RDW 25.2 H Plt Count 54 L Lymph % (Auto) Adams % (Auto) Adams # (Auto) Seg Neutrophils % Seg Neutrophils # PT INR APTT Sodium Potassium Chloride Carbon Dioxide BUN Creatinine Glucose POC Glucose 174 H Hemoglobin A1c Lactic Acid Calcium Total Bilirubin Direct Bilirubin AST ALT Alkaline Phosphatase CK-MB (CK-2) CK-MB (CK-2) Rel Index Troponin T Total Protein Albumin LDL Cholesterol Direct HDL Cholesterol TSH Free T4 Acetaminophen JULIA Screen
--- NOTE | 2020-12-23 12:06 | Hem/Onc Consultation ---
History of Present Illness - History of Present Illness HEME PRELIM DATA REVIEW 70yo AA woman with DM requiring insulin and ESRD requiring HD midodrine is a home med weakness after HD since admission found ot have hypoglycemia, in ICU presumed to have sepsis, but no infection proven plt count was nl on admission->now 50's has been taking eliquis data reviewed below IMP: low plt count due to meds or infection, r/o HIT mild anemia coagulopathy due to eliquis and maybe liver dysfunction REC: labs to include Hgb electrophoresis and SPEP and PF4 Ab off anticoag for now-f/u PT INR Home Medications Medication Instructions Recorded Confirmed Last Taken Apixaban [Eliquis] 5 mg PO BID 12/16/20 12/16/20 Unknown Aspirin [Adult Aspirin] 81 mg PO QDAY 12/16/20 12/16/20 Unknown Escitalopram [Lexapro] 10 mg PO DAILY 12/16/20 12/16/20 Unknown Gabapentin 300 mg PO QDAY 12/16/20 12/16/20 Unknown Levemir Flextouch 6 units SUB-Q HS 12/16/20 12/22/20 Unknown Midodrine [Proamatine] 15 mg PO TID 12/16/20 12/16/20 Unknown NovoLOG Flexpen 6 units SUB-Q BID 12/16/20 12/22/20 Unknown Pantoprazole [Protonix] 40 mg PO QDAY 12/16/20 12/16/20 Unknown Vit B Comp No.3/Folic/C/Biotin 1 each PO DAILY 12/16/20 12/16/20 Unknown [Nephro-Nola Rx Tablet] sevelamer HCL [Sevelamer HCl] 800 mg PO TID 12/16/20 12/16/20 Unknown Active Medications Insulin Human Regular (Insulin Regular, Human 100 Units/1 Ml) 0 units SUB-Q ACHS JEET; Protocol Last Admin: 12/23/20 09:03 Dose: 1 units Documented by: Magnesium Hydroxide (Magnesium Hydroxide (Mom) Oral Liqd Udc) 30 ml PO Q4H PRN PRN Reason: Constipation Midodrine (Midodrine 5 Mg Tab) 5 mg PO TID@0800,1200,1600 JEET Last Admin: 12/23/20 09:02 Dose: 5 mg Documented by: Morphine Sulfate (Morphine 2 Mg/1 Ml Inj) 0.5 mg IV Q6H PRN PRN Reason: Pain, Moderate (4-6) Ondansetron HCl (Ondansetron 4 Mg/2 Ml Inj) 4 mg IV Q8H PRN PRN Reason: Nausea And Vomiting Pantoprazole Sodium (Pantoprazole 40 Mg Inj) 40 mg IV QDAY [facility] Last Admin: 12/23/20 09:03 Dose: 40 mg Documented by: Simple Syrup (Simple Syrup 15 Ml) 15 ml FEEDTUBE PRN PRN PRN Reason: Hypoglycemia Simple Syrup (Simple Syrup 15 Ml) 30 ml FEEDTUBE PRN PRN PRN Reason: Hypoglycemia Sodium Bicarbonate (Sodium Bicarbonate 325 Mg Tab) 325 mg FEEDTUBE PRN PRN PRN Reason: For Clogged Feeding Tube Sodium Chloride (Sodium Chloride 0.9% 10 Ml Flush Syringe) 10 ml IV BID [facility] Last Admin: 12/23/20 09:04 Dose: 10 ml Documented by: Sodium Chloride (Sodium Chloride 0.9% 10 Ml Flush Syringe) 10 ml IV PRN PRN PRN Reason: LINE FLUSH Laboratory Last Values WBC 7.5 K/mm3 (4.5-11.0) 12/23/20 07:31 Hgb 9.6 gm/dl (10.1-14.3) L 12/23/20 07:31 Hct 30.3 % (30.3-42.9) 12/23/20 07:31 MCV 100 fl (79-97) H 12/23/20 07:31 Plt Count 54 K/mm3 (140-440) L 12/23/20 07:31 PT 26.3 Sec. (12.2-14.9) H 12/17/20 05:42 INR 2.36 (0.87-1.13) H 12/17/20 05:42 APTT 39.9 Sec. (24.2-36.6) H 12/16/20 00:57 Thrombin Time 16.9 Sec. (15.1-19.6) 12/16/20 00:57 Total Bilirubin 2.70 mg/dL (0.1-1.2) H 12/22/20 05:06 Direct Bilirubin 1.2 mg/dL (0-0.2) H 12/19/20 06:59 Indirect Bilirubin 0.5 mg/dL 12/19/20 06:59 AST 150 units/L (5-40) H 12/22/20 05:06 ALT 644 units/L (7-56) H 12/22/20 05:06 Alkaline Phosphatase 148 units/L (35-129) H 12/22/20 05:06 Ammonia 27.0 umol/L (25-60) 12/16/20 00:57 Hepatitis C Antibody Non-reactive (NonReactive) 12/16/20 03:55 Past History Past Medical History: diabetes, dialysis, ESRD, hypertension Past Surgical History: Other (Left arm AV fistula, Left chest Vas Cath.) Social history: no significant social history Family history: no significant family history Medications and Allergies Allergies Allergy/AdvReac Type Severity Reaction Status Date / Time No Known Allergies Allergy Verified 12/11/20 17:11 Home Medications Medication Instructions Recorded Confirmed Last Taken Type Apixaban [Eliquis] 5 mg PO BID 12/16/20 12/16/20 Unknown History Aspirin [Adult Aspirin] 81 mg PO QDAY 12/16/20 12/16/20 Unknown History Escitalopram [Lexapro] 10 mg PO DAILY 12/16/20 12/16/20 Unknown History Gabapentin 300 mg PO QDAY 12/16/20 12/16/20 Unknown History Levemir Flextouch 6 units SUB-Q HS 12/16/20 12/22/20 Unknown History Midodrine [Proamatine] 15 mg PO TID 12/16/20 12/16/20 Unknown History NovoLOG Flexpen 6 units SUB-Q BID 12/16/20 12/22/20 Unknown History Pantoprazole [Protonix] 40 mg PO QDAY 12/16/20 12/16/20 Unknown History Vit B Comp No.3/Folic/C/Biotin 1 each PO DAILY 12/16/20 12/16/20 Unknown History [Nephro-Nola Rx Tablet] sevelamer HCL [Sevelamer HCl] 800 mg PO TID 12/16/20 12/16/20 Unknown History Active Meds: Active Medications Lipase/Protease/Amylase (Lipase 10,500/Protease 25,000/Amylase 43,750 (Units) Dr Lazar) 1 each FEEDTUBE PRN PRN PRN Reason: For Clogged Feeding Tube Dextrose (Dextrose 50% In Water (25gm) 50 Ml Syringe) 0 ml IV Q30MIN PRN; Protocol PRN Reason: Hypoglycemia Last Admin: 12/18/20 08:23 Dose: 50 ml Documented by: Sodium Chloride (Nacl 0.9% 1000 Ml) 1,000 mls @ 75 mls/hr IV DIRECT [facility] Last Admin: 12/17/20 22:24 Dose: 75 mls/hr Documented by: Sodium Chloride (Nacl 0.9%) 100 mls @ 999 mls/hr IV ROSA M PRN PRN Reason: Hypotension Sodium Chloride (Nacl 0.9%) 100 mls @ 999 mls/hr IV ROSA M PRN PRN Reason: Hypotension Insulin Human Regular (Insulin Regular, Human 100 Units/1 Ml) 0 units SUB-Q ACHS [facility]; Protocol Last Admin: 12/23/20 09:03 Dose: 1 units Documented by: Magnesium Hydroxide (Magnesium Hydroxide (Mom) Oral Liqd Udc) 30 ml PO Q4H PRN PRN Reason: Constipation Midodrine (Midodrine 5 Mg Tab) 5 mg PO TID@0800,1200,1600 [facility] Last Admin: 12/23/20 09:02 Dose: 5 mg Documented by: Morphine Sulfate (Morphine 2 Mg/1 Ml Inj) 0.5 mg IV Q6H PRN PRN Reason: Pain, Moderate (4-6) Ondansetron HCl (Ondansetron 4 Mg/2 Ml Inj) 4 mg IV Q8H PRN PRN Reason: Nausea And Vomiting Pantoprazole Sodium (Pantoprazole 40 Mg Inj) 40 mg IV QDAY [facility] Last Admin: 12/23/20 09:03 Dose: 40 mg Documented by: Simple Syrup (Simple Syrup 15 Ml) 15 ml FEEDTUBE PRN PRN PRN Reason: Hypoglycemia Simple Syrup (Simple Syrup 15 Ml) 30 ml FEEDTUBE PRN PRN PRN Reason: Hypoglycemia Sodium Bicarbonate (Sodium Bicarbonate 325 Mg Tab) 325 mg FEEDTUBE PRN PRN PRN Reason: For Clogged Feeding Tube Sodium Chloride (Sodium Chloride 0.9% 10 Ml Flush Syringe) 10 ml IV BID [facility] Last Admin: 12/23/20 09:04 Dose: 10 ml Documented by: Sodium Chloride (Sodium Chloride 0.9% 10 Ml Flush Syringe) 10 ml IV PRN PRN PRN Reason: LINE FLUSH Exam - Constitutional Vitals: Last Vital Signs Temp 98.8 F 12/23/20 08:34 Pulse 82 12/23/20 08:00 Resp 20 12/23/20 08:00 BP 118/34 12/23/20 08:00 Pulse Ox 100 12/23/20 08:36 Results - Labs lab Results: Laboratory Results - last 24 hr 12/22/20 12/22/20 12/22/20 16:22 16:37 19:52 WBC RBC Hgb 9.4 L Hct 31.3 MCV MCH MCHC RDW Plt Count POC Glucose 115 H 119 H 12/22/20 12/23/20 12/23/20 23:35 04:17 06:06 WBC RBC Hgb 8.8 L Hct 28.1 L MCV MCH MCHC RDW Plt Count POC Glucose 143 H 170 H 12/23/20 12/23/20 07:31 08:14 WBC 7.5 RBC 3.03 L Hgb 9.6 L Hct 30.3 MCV 100 H MCH 32 MCHC 32 RDW 25.2 H Plt Count 54 L POC Glucose 174 H
--- NOTE | 2020-12-23 12:44 | Progress Note ---
Assessment and Plan - Patient Problems (1) Elevated troponin Current Visit: Yes Status: Acute Plan to address problem: Cardiac status is stable, no new cardiac complaints, will follow conservatively. Subjective Date of service: 12/23/20 Principal diagnosis: change in mentation,ESRD Interval history: Patient is comfortable, in no acute cardiac complaints. elevator attendant shows a normal sinus rhythm at 92, and blood pressure 127 systolic. Objective Vital Signs Temp Pulse Pulse Resp BP Pulse Ox 12/23/20 08:36 100 12/23/20 08:34 98.8 F 12/23/20 08:00 88 82 20 118/34 100 12/23/20 07:00 87 19 127/35 100 12/23/20 06:00 90 18 134/69 100 12/23/20 05:00 89 15 134/69 100 12/23/20 04:00 98.9 F 86 18 129/61 99 12/23/20 03:00 86 15 127/32 100 12/23/20 02:00 85 20 121/29 96 12/23/20 01:00 87 20 130/21 100 12/23/20 00:05 84 12/23/20 00:00 98.5 F 85 87 17 123/25 100 12/22/20 23:00 84 14 120/47 99 12/22/20 22:00 84 13 131/30 99 12/22/20 21:00 85 18 121/29 100 12/22/20 20:49 100 12/22/20 20:10 81 12/22/20 20:00 98.0 F 80 17 130/29 100 12/22/20 19:12 80 17 128/28 100 12/22/20 19:00 81 19 128/28 97 12/22/20 18:00 82 15 131/35 100 12/22/20 17:00 86 15 121/60 100 12/22/20 16:00 98.2 F 85 19 121/60 98 12/22/20 15:00 93 H 18 123/60 100 12/22/20 14:00 86 22 115/36 94 12/22/20 13:00 85 16 115/36 94 - Physical Examination General: No Apparent Distress HEENT: Positive: PERRL Neck: Positive: neck supple Cardiac: Positive: Reg Rate and Rhythm Lungs: Positive: Decreased Breath Sounds Neuro: Positive: Weakness Abdomen: Positive: Soft Skin: Positive: Clear Extremities: Absent: edema - Labs and Meds CBC 12/22/20 12/23/20 12/23/20 Range/Units 16:37 06:06 07:31 WBC 7.5 (4.5-11.0) K/mm3 RBC 3.03 L (3.65-5.03) M/mm3 Hgb 9.4 L 8.8 L 9.6 L (10.1-14.3) gm/dl Hct 31.3 28.1 L 30.3 (30.3-42.9) % Plt Count 54 L (140-440) K/mm3
--- NOTE | 2020-12-23 13:36 | Magnetic Resonance Report ---
MRI BRAIN 12/23/2020 INDICATION / CLINICAL INFORMATION: altered mental status. TECHNIQUE: Multiplanar, multisequence MR images of the brain were obtained. COMPARISON: None available. FINDINGS: BRAIN / INTRACRANIAL CONTENTS: Unenhanced MR images of the brain demonstrate no evidence of acute int racranial abnormality. Ventricles and sulci are prominent in size, consistent with prominent diffuse cerebral atrophy. There is extensive chronic white matter T2 weighted hyperintensities present throughout the cerebral hemispheric white matter and brainstem, consistent with extensive chronic small vessel ischemic gonsalez e. Chronic lacunar changes are noted in the right thalamus. There is no evidence of acute ischemic injury, hemorrhage, or mass. There are no abnormal extra-axial fluid collections. EXTRACRANIAL: Unremarkable CRANIOCERVICAL JUNCTION: No significant abnormality. VASCULAR FLOW-VOIDS: No significant abnormality. IMPRESSION: No acute abnormality. Extensive chronic and age-related changes. Signer Name: Wallace Rivas MD Signed: 12/23/2020 1:32 PM Workstation Name: [id number]
--- NOTE | 2020-12-23 13:55 | Progress Note ---
Assessment and Plan 1. ESRD: Patient is on maintenance hemodialysis three times a week, MWF schedule. Meds dosage based on GFR. Hemodialysis: 12/16, 12/18, 12/20. HD today. 2. FEN: Hyperkalemia, improved. Anion-gap metabolic acidosis, 2/2 Lactic acidosis, monitor. Monitor lytes and volume status. 3. Anemia, POA: 2/2 ESRD. Epogen with HD. 4. Acute metabolic encephalopathy, POA: CT head negative. Seen by Neuro. Monitor. 5. Sepsis, POA: S/p Abx. Bl culture negative. 6. Elevated Troponin: Followed by Cards. 7. Hypotension: On Midodrine. Monitor BP. 8. Elevated ALT / AST: Improving. 9. Hypoglycemia: Improved. Subjective: Patient was seen and examined at the bedside. General Appearance: General appearance: well-developed, appears stated age, not in distress HEENT: ATNC, pupils equal Neck: trachea midline Respiratory: ctab Heart: regular, S1S2, no murmur Abdomen: soft, bowel sounds heard, not tender Integumentary: b/l leg dressing noted Neurologic: lethargic, not following any command, not conversing Ext: no edema Hemodialysis access: L IJ tunnel catheter Subjective Date of service: 12/23/20 Principal diagnosis: change in mentation,ESRD Objective - Vital Signs Vital signs: Vital Signs - 12hr 12/23/20 12/23/20 12/23/20 02:00 03:00 04:00 Temperature 98.9 F Pulse Rate 85 86 86 Pulse Rate [ From Monitor] Respiratory 20 15 18 Rate Blood Pressure 121/29 127/32 129/61 O2 Sat by Pulse 96 100 99 Oximetry 12/23/20 12/23/20 12/23/20 05:00 06:00 07:00 Temperature Pulse Rate 89 90 87 Pulse Rate [ From Monitor] Respiratory 15 18 19 Rate Blood Pressure 134/69 134/69 127/35 O2 Sat by Pulse 100 100 100 Oximetry 12/23/20 12/23/20 12/23/20 08:00 08:34 08:36 Temperature 98.8 F Pulse Rate 88 Pulse Rate [ 82 From Monitor] Respiratory 20 Rate Blood Pressure 118/34 O2 Sat by Pulse 100 100 Oximetry 12/23/20 12/23/20 12/23/20 09:00 10:00 11:00 Temperature Pulse Rate 92 H 90 87 Pulse Rate [ From Monitor] Respiratory 22 18 16 Rate Blood Pressure 118/34 127/44 131/33 O2 Sat by Pulse 100 98 97 Oximetry 12/23/20 12/23/20 12:58 13:00 Temperature 98 F Pulse Rate 87 87 Pulse Rate [ From Monitor] Respiratory 14 23 Rate Blood Pressure 99/52 110/56 O2 Sat by Pulse 100 Oximetry - Lab 12/23/20 07:31 12/22/20 05:06 Most recent lab results Calcium 8.3 mg/dL (8.4-10.2) L 12/22/20 05:06 Medications & Allergies - Medications Allergies/Adverse Reactions: Allergies No Known Allergies Allergy (Verified 12/11/20 17:11) Home Medications: Home Medications Medication Instructions Recorded Confirmed Last Taken Type Apixaban [Eliquis] 5 mg PO BID 12/16/20 12/16/20 Unknown History Aspirin [Adult Aspirin] 81 mg PO QDAY 12/16/20 12/16/20 Unknown History Escitalopram [Lexapro] 10 mg PO DAILY 12/16/20 12/16/20 Unknown History Gabapentin 300 mg PO QDAY 12/16/20 12/16/20 Unknown History Levemir Flextouch 6 units SUB-Q HS 12/16/20 12/22/20 Unknown History Midodrine [Proamatine] 15 mg PO TID 12/16/20 12/16/20 Unknown History NovoLOG Flexpen 6 units SUB-Q BID 12/16/20 12/22/20 Unknown History Pantoprazole [Protonix] 40 mg PO QDAY 12/16/20 12/16/20 Unknown History Vit B Comp No.3/Folic/C/Biotin 1 each PO DAILY 12/16/20 12/16/20 Unknown History [Nephro-Nola Rx Tablet] sevelamer HCL [Sevelamer HCl] 800 mg PO TID 12/16/20 12/16/20 Unknown History Active Medications: Generic Name Dose Route Start Last Admin Trade Name Freq PRN Reason Stop Dose Admin Lipase/Protease/Amylase 1 each 12/22/20 10:34 Lipase 10,500/Protease 25,000/Amylase 43,750 (Units) Dr Lazar FEEDTUBE PRN PRN For Clogged Feeding Tube Dextrose 0 ml 12/16/20 03:40 12/18/20 08:23 Dextrose 50% In Water (25gm) 50 Ml Syringe IV 50 ml Q30MIN PRN Administration Hypoglycemia Protocol Sodium Chloride 1,000 mls @ 75 mls/hr 12/16/20 03:45 12/17/20 22:24 Nacl 0.9% 1000 Ml IV 75 mls/hr DIRECT JEET Administration Sodium Chloride 100 mls @ 999 mls/hr 12/16/20 08:09 Nacl 0.9% IV ROSA M PRN Hypotension Sodium Chloride 100 mls @ 999 mls/hr 12/20/20 09:20 Nacl 0.9% IV ROSA M PRN Hypotension Insulin Human Regular 0 units 12/16/20 07:30 12/23/20 13:13 Insulin Regular, Human 100 Units/1 Ml SUB-Q Not Given ACHS JEET Protocol Magnesium Hydroxide 30 ml 12/16/20 03:40 Magnesium Hydroxide (Mom) Oral Liqd Udc PO Q4H PRN Constipation Midodrine 5 mg 12/16/20 12:00 12/23/20 13:31 Midodrine 5 Mg Tab PO 5 mg TID@0800,1200,1600 JEET Administration Morphine Sulfate 0.5 mg 12/18/20 13:00 Morphine 2 Mg/1 Ml Inj IV Q6H PRN Pain, Moderate (4-6) Ondansetron HCl 4 mg 12/16/20 03:40 Ondansetron 4 Mg/2 Ml Inj IV Q8H PRN Nausea And Vomiting Pantoprazole Sodium 40 mg 12/24/20 10:00 Pantoprazole 40 Mg Inj IV QDAY JEET Simple Syrup 15 ml 12/22/20 08:19 Simple Syrup 15 Ml FEEDTUBE PRN PRN Hypoglycemia Simple Syrup 30 ml 12/22/20 08:19 Simple Syrup 15 Ml FEEDTUBE PRN PRN Hypoglycemia Sodium Bicarbonate 325 mg 12/22/20 10:34 Sodium Bicarbonate 325 Mg Tab FEEDTUBE PRN PRN For Clogged Feeding Tube Sodium Chloride 10 ml 12/16/20 10:00 12/23/20 09:04 Sodium Chloride 0.9% 10 Ml Flush Syringe IV 10 ml BID JEET Administration Sodium Chloride 10 ml 12/16/20 03:40 Sodium Chloride 0.9% 10 Ml Flush Syringe IV PRN PRN LINE FLUSH
[2020-12-23 15:59] LABS: Hematocrit 29.6 % (30.3-42.9); Hemoglobin 9.1 gm/dl (10.1-14.3)
[2020-12-24] MEDS: INSULIN REGULAR, HUMAN 100 UNITS/1 ML SUB-Q SCH ×5 (00:35→18:46)
--- NOTE | 2020-12-24 09:13 | Progress Note ---
Assessment and Plan 1. ESRD: Patient is on maintenance hemodialysis three times a week, MWF schedule. Meds dosage based on GFR. Hemodialysis: 12/16, 12/18, 12/20. HD today. 2. FEN: Hyperkalemia, improved. Anion-gap metabolic acidosis, improved. Monitor lytes and volume status. 3. Anemia, POA: 2/2 ESRD. Epogen with HD. 4. Acute metabolic encephalopathy, POA: CT head negative. Seen by Neuro. Monitor. 5. Sepsis, POA: S/p Abx. Bl culture negative. 6. Elevated Troponin: Followed by Cards. 7. Hypotension: On Midodrine. Monitor BP. 8. Elevated ALT / AST: Improving. 9. Hypoglycemia: Improved. Subjective: Patient was seen and examined at the bedside. General Appearance: General appearance: well-developed, appears stated age, not in distress, NC O2, NG tube HEENT: ATNC, pupils equal Neck: trachea midline Respiratory: ctab Heart: regular, S1S2, no murmur Abdomen: soft, bowel sounds heard, not tender Integumentary: b/l leg dressing noted Neurologic: lethargic, not following any command, not conversing Ext: no edema Hemodialysis access: L IJ tunnel catheter Subjective Date of service: 12/24/20 Principal diagnosis: change in mentation,ESRD Objective - Vital Signs Vital signs: Vital Signs - 12hr 12/23/20 12/24/20 12/24/20 23:53 03:50 08:09 Temperature 98.2 F 97.8 F 98.6 F Pulse Rate 88 88 95 H Respiratory 20 20 18 Rate Blood Pressure 156/38 140/36 138/55 O2 Sat by Pulse 100 100 98 Oximetry - Lab 12/23/20 14:56 12/22/20 05:06 Most recent lab results Calcium 8.3 mg/dL (8.4-10.2) L 12/22/20 05:06 Medications & Allergies - Medications Allergies/Adverse Reactions: Allergies No Known Allergies Allergy (Verified 12/11/20 17:11) Home Medications: Home Medications Medication Instructions Recorded Confirmed Last Taken Type Apixaban [Eliquis] 5 mg PO BID 12/16/20 12/16/20 Unknown History Aspirin [Adult Aspirin] 81 mg PO QDAY 12/16/20 12/16/20 Unknown History Escitalopram [Lexapro] 10 mg PO DAILY 12/16/20 12/16/20 Unknown History Gabapentin 300 mg PO QDAY 12/16/20 12/16/20 Unknown History Levemir Flextouch 6 units SUB-Q HS 12/16/20 12/22/20 Unknown History Midodrine [Proamatine] 15 mg PO TID 12/16/20 12/16/20 Unknown History NovoLOG Flexpen 6 units SUB-Q BID 12/16/20 12/22/20 Unknown History Pantoprazole [Protonix] 40 mg PO QDAY 12/16/20 12/16/20 Unknown History Vit B Comp No.3/Folic/C/Biotin 1 each PO DAILY 12/16/20 12/16/20 Unknown History [Nephro-Nola Rx Tablet] sevelamer HCL [Sevelamer HCl] 800 mg PO TID 12/16/20 12/16/20 Unknown History Active Medications: Generic Name Dose Route Start Last Admin Trade Name Freq PRN Reason Stop Dose Admin Lipase/Protease/Amylase 1 each 12/22/20 10:34 Lipase 10,500/Protease 25,000/Amylase 43,750 (Units) Dr Lazar FEEDTUBE PRN PRN For Clogged Feeding Tube Dextrose 0 ml 12/16/20 03:40 12/18/20 08:23 Dextrose 50% In Water (25gm) 50 Ml Syringe IV 50 ml Q30MIN PRN Administration Hypoglycemia Protocol Sodium Chloride 1,000 mls @ 75 mls/hr 12/16/20 03:45 12/17/20 22:24 Nacl 0.9% 1000 Ml IV 75 mls/hr DIRECT JEET Administration Sodium Chloride 100 mls @ 999 mls/hr 12/16/20 08:09 Nacl 0.9% IV ROSA M PRN Hypotension Sodium Chloride 100 mls @ 999 mls/hr 12/20/20 09:20 Nacl 0.9% IV ROSA M PRN Hypotension Insulin Human Regular 0 units 12/16/20 07:30 12/24/20 00:35 Insulin Regular, Human 100 Units/1 Ml SUB-Q Not Given ACHS JEET Protocol Magnesium Hydroxide 30 ml 12/16/20 03:40 Magnesium Hydroxide (Mom) Oral Liqd Udc PO Q4H PRN Constipation Midodrine 5 mg 12/16/20 12:00 12/23/20 17:41 Midodrine 5 Mg Tab PO 5 mg TID@0800,1200,1600 JEET Administration Morphine Sulfate 0.5 mg 12/18/20 13:00 Morphine 2 Mg/1 Ml Inj IV Q6H PRN Pain, Moderate (4-6) Ondansetron HCl 4 mg 12/16/20 03:40 Ondansetron 4 Mg/2 Ml Inj IV Q8H PRN Nausea And Vomiting Pantoprazole Sodium 40 mg 12/24/20 10:00 Pantoprazole 40 Mg Inj IV QDAY JEET Simple Syrup 15 ml 12/22/20 08:19 Simple Syrup 15 Ml FEEDTUBE PRN PRN Hypoglycemia Simple Syrup 30 ml 12/22/20 08:19 Simple Syrup 15 Ml FEEDTUBE PRN PRN Hypoglycemia Sodium Bicarbonate 325 mg 12/22/20 10:34 Sodium Bicarbonate 325 Mg Tab FEEDTUBE PRN PRN For Clogged Feeding Tube Sodium Chloride 10 ml 12/16/20 10:00 12/24/20 00:36 Sodium Chloride 0.9% 10 Ml Flush Syringe IV Not Given BID JEET Sodium Chloride 10 ml 12/16/20 03:40 Sodium Chloride 0.9% 10 Ml Flush Syringe IV PRN PRN LINE FLUSH
--- NOTE | 2020-12-24 09:18 | Progress Note ---
Assessment and Plan - Patient Problems (1) Elevated troponin Current Visit: Yes Status: Acute Plan to address problem: Troponin elevation, nonspecific finding in the setting of end-stage renal failure. An echocardiogram shows a four-chamber dilated cardiomyopathy, left ventricular ejection fraction 30 to 35%. There is mild to moderate mitral stenosis, moderate to severe mitral regurgitation, moderate to severe tricuspid regurgitation and severe pulmonary hypertension. Conservative medical therapy as tolerated for cardiomyopathy and valvular heart disease. Subjective Date of service: 12/24/20 Principal diagnosis: change in mentation,ESRD Interval history: Patient is alert, resting in bed comfortably. Objective Vital Signs Temp Pulse Pulse Resp BP Pulse Ox Pulse Ox 12/24/20 08:09 98.6 F 95 H 18 138/55 98 12/24/20 03:50 97.8 F 88 20 140/36 100 12/23/20 23:53 98.2 F 88 20 156/38 100 12/23/20 21:10 87 26 H 144/40 99 12/23/20 21:00 90 18 144/40 90 12/23/20 20:11 94 12/23/20 20:00 98.1 F 89 90 18 144/40 94 95 12/23/20 19:45 89 124/36 12/23/20 19:30 86 134/29 12/23/20 19:15 89 133/52 12/23/20 19:00 90 13 134/42 96 12/23/20 18:45 87 107/39 12/23/20 18:30 89 114/46 12/23/20 18:15 88 123/36 12/23/20 18:00 91 H 17 139/45 96 12/23/20 17:45 91 H 126/52 12/23/20 17:30 82 126/60 12/23/20 17:15 88 123/41 12/23/20 17:00 97.8 F 86 18 138/32 95 12/23/20 16:45 84 138/32 12/23/20 16:40 98.1 F 86 22 119/39 95 12/23/20 16:00 90 82 15 126/44 92 12/23/20 15:00 87 17 116/54 99 12/23/20 14:00 89 20 110/56 98 12/23/20 13:00 98 F 87 23 110/56 100 12/23/20 12:58 87 14 99/52 08/02/21 12:00 86 82 20 100 12/23/20 11:00 87 16 131/33 97 12/23/20 10:00 90 18 127/44 98 Pulse Ox 12/24/20 08:09 12/24/20 03:50 12/23/20 23:53 12/23/20 21:10 12/23/20 21:00 12/23/20 20:11 12/23/20 20:00 92 12/23/20 19:45 12/23/20 19:30 12/23/20 19:15 12/23/20 19:00 12/23/20 18:45 12/23/20 18:30 12/23/20 18:15 12/23/20 18:00 12/23/20 17:45 12/23/20 17:30 12/23/20 17:15 12/23/20 17:00 12/23/20 16:45 12/23/20 16:40 95 12/23/20 16:00 12/23/20 15:00 12/23/20 14:00 12/23/20 13:00 12/23/20 12:58 12/23/20 12:00 12/23/20 11:00 12/23/20 10:00 - Physical Examination General: No Apparent Distress HEENT: Positive: PERRL Neck: Positive: neck supple Cardiac: Positive: Reg Rate and Rhythm Lungs: Positive: Decreased Breath Sounds Neuro: Positive: Weakness Extremities: Absent: edema - Labs and Meds CBC 12/23/20 Range/Units 14:56 Hgb 9.1 L (10.1-14.3) gm/dl Hct 29.6 L (30.3-42.9) %
[2020-12-24] MEDS: MIDODRINE 5 MG TAB PO SCH ×2 (09:28→16:45)
[2020-12-24] MEDS ORDERED: PANTOPRAZOLE 40 MG INJ IV SCH (10:00)
[2020-12-24] MEDS ORDERED: LANSOPRAZOLE 30 MG SOLUTAB FEEDTUBE SCH (10:00)
--- NOTE | 2020-12-24 12:00 | Progress Note ---
Assessment and Plan Assessment and Plan # Altered mental status -Possibly secondary to multiple underlying problems including possible sepsis, end-stage renal disease with hyperkalemia and elevated liver enzymes. Will monitor mental status. #Sepsis, POA Completed Cefepime and Vancomycin ID following #Thrombocytopenia may be due to Sepsis. To r/o HIT Plaletets getting lower 67 today Consult Hematology is noted # ESRD (end stage renal disease) -nephrology follow #Hyperkalemia -Possibly secondary to the end-stage renal disease. -Patient will be given Kayexalate, insulin/glucose, sodium bicarb and will monitor potassium levels. #Elevated liver enzymes -hepatic profil #Elevated troponin -Possibly secondary to the underlying end-stage renal disease versus sepsis. However we trend cardiac enzymes and request cardiology evaluation and recommendations. #Diabetes mellitus Patient placed on sliding scale insulin. We will monitor Accu-Cheks closely. # DVT prophylaxis -Patient currently on anticoagulation with Eliquis. #Full code status -Patient is full code. #Positive JULIA -ESR#53 -DSDNA -rh factor PLAN 1- EEG R/O seizure 2- review AsDNA 3-Post anoxic injury can not be excluded!!! will follow as needed over all prognosis is quarded to poor . Subjective Date of service: 12/24/20 Principal diagnosis: change in mentation,ESRD Interval history: awak not follow command slight withdrawal to pain , may be some time squeeze hand ? no reported seizure MRI brain is with no acute finding she is with left facial droop. drolling with moaning when asked question no clear speech out put EEG is pending Objective - Vital Sign Vital Signs - 12hr 12/23/20 12/24/20 12/24/20 23:53 03:50 08:00 Temperature 98.2 F 97.8 F Pulse Rate 88 88 90 Respiratory 20 20 Rate Blood Pressure 156/38 140/36 O2 Sat by Pulse 100 100 Oximetry 12/24/20 08:09 Temperature 98.6 F Pulse Rate 95 H Respiratory 18 Rate Blood Pressure 138/55 O2 Sat by Pulse 98 Oximetry - General Apperance Constitutional: uncomfortable, other (moaning at time not clear if she comprehends or follow command ) - EENT EENT: PERRL, mucous membranes moist - Respiratory Respiratory: chest non-tender, lungs clear, rales, rhonchi - Cardiovascular Cardiovascular: regular rate, normal S1, normal S2 Extremities: no peripheral edema bilat, no clubbing, cyanosis - Gastrointestinal Gastrointestinal: normoactive bowel sounds - Integumentary Integumentary: normal - Neurologic Cranial nerve examination: PERRL, EOMI, intact (left facial droop ) Detailed motor examination: other (withdrwa both upper and lower to painful stimuli , sightly squeeze hand to verbal ??) - Laboratory Findings CBC and BMP: 12/23/20 14:56 12/22/20 05:06 Abnormal Lab Findings: Abnormal Labs 12/16/20 12/16/20 12/16/20 00:38 00:57 00:57 WBC 18.2 H RBC 3.13 L Hgb 9.4 L Hct MCV 100 H RDW 22.7 H Plt Count Lymph % (Auto) 8.0 L Ocean % (Auto) 7.8 H Ocean # (Auto) 1.4 H Seg Neutrophils % 83.4 H Seg Neutrophils # 15.2 H PT 29.9 H INR 2.80 H APTT 39.9 H Sodium Potassium Chloride Carbon Dioxide BUN Creatinine Glucose POC Glucose 116 H Hemoglobin A1c Lactic Acid Calcium Total Bilirubin Direct Bilirubin AST ALT Alkaline Phosphatase CK-MB (CK-2) CK-MB (CK-2) Rel Index Troponin T Total Protein Albumin LDL Cholesterol Direct HDL Cholesterol TSH Free T4 Acetaminophen JULIA Screen 12/16/20 12/16/20 12/16/20 00:57 00:57 00:57 WBC RBC Hgb Hct MCV RDW Plt Count Lymph % (Auto) Ocean % (Auto) Ocean # (Auto) Seg Neutrophils % Seg Neutrophils # PT INR APTT Sodium 136 L Potassium 5.4 H Chloride 94.2 L Carbon Dioxide 18 L D BUN 34 H Creatinine 5.6 H Glucose 108 H POC Glucose Hemoglobin A1c Lactic Acid 8.10 H* Calcium Total Bilirubin 1.30 H Direct Bilirubin AST 2838 H ALT 1353 H Alkaline Phosphatase 186 H CK-MB (CK-2) 5.1 H CK-MB (CK-2) Rel Index 6.0 H Troponin T 0.720 H* Total Protein Albumin 3.2 L LDL Cholesterol Direct 34 L HDL Cholesterol 64 H TSH 6.720 H Free T4 1.54 H Acetaminophen JULIA Screen 12/16/20 12/16/20 12/16/20 01:45 05:48 05:48 WBC RBC Hgb Hct MCV RDW Plt Count Lymph % (Auto) Ocean % (Auto) Ocean # (Auto) Seg Neutrophils % Seg Neutrophils # PT INR APTT Sodium Potassium Chloride Carbon Dioxide BUN Creatinine Glucose POC Glucose Hemoglobin A1c Lactic Acid 6.60 H* 6.00 H* Calcium Total Bilirubin Direct Bilirubin AST ALT Alkaline Phosphatase CK-MB (CK-2) CK-MB (CK-2) Rel Index Troponin T 0.731 H* Total Protein Albumin LDL Cholesterol Direct HDL Cholesterol TSH Free T4 Acetaminophen JULIA Screen 12/16/20 12/16/20 12/16/20 05:48 05:48 07:57 WBC RBC Hgb Hct MCV RDW Plt Count Lymph % (Auto) Ocean % (Auto) Ocean # (Auto) Seg Neutrophils % Seg Neutrophils # PT INR APTT Sodium Potassium Chloride Carbon Dioxide BUN Creatinine Glucose POC Glucose 115 H 118 H Hemoglobin A1c Lactic Acid Calcium Total Bilirubin Direct Bilirubin AST ALT Alkaline Phosphatase CK-MB (CK-2) CK-MB (CK-2) Rel Index Troponin T Total Protein Albumin LDL Cholesterol Direct HDL Cholesterol TSH Free T4 Acetaminophen 5.0 L JULIA Screen 12/16/20 12/16/20 12/16/20 10:35 11:30 16:12 WBC RBC Hgb Hct MCV RDW Plt Count Lymph % (Auto) Ocean % (Auto) Ocean # (Auto) Seg Neutrophils % Seg Neutrophils # PT INR APTT Sodium Potassium Chloride Carbon Dioxide BUN Creatinine Glucose POC Glucose 124 H 115 H Hemoglobin A1c Lactic Acid 2.40 H* Calcium Total Bilirubin Direct Bilirubin AST ALT Alkaline Phosphatase CK-MB (CK-2) CK-MB (CK-2) Rel Index Troponin T Total Protein Albumin LDL Cholesterol Direct HDL Cholesterol TSH Free T4 Acetaminophen JULIA Screen 12/16/20 12/17/20 12/17/20 21:00 05:42 05:42 WBC 12.0 H RBC 2.52 L Hgb 7.6 L Hct 24.6 L D MCV 98 H RDW 22.7 H Plt Count 137 L Lymph % (Auto) 9.7 L Ocean % (Auto) 8.3 H Ocean # (Auto) 1.0 H Seg Neutrophils % 78.2 H Seg Neutrophils # 9.4 H PT 26.3 H INR 2.36 H APTT Sodium Potassium Chloride Carbon Dioxide BUN Creatinine Glucose POC Glucose 149 H Hemoglobin A1c Lactic Acid Calcium Total Bilirubin Direct Bilirubin AST ALT Alkaline Phosphatase CK-MB (CK-2) CK-MB (CK-2) Rel Index Troponin T Total Protein Albumin LDL Cholesterol Direct HDL Cholesterol TSH Free T4 Acetaminophen JULIA Screen 12/17/20 12/17/20 12/17/20 05:42 05:42 05:42 WBC RBC Hgb Hct MCV RDW Plt Count Lymph % (Auto) Ocean % (Auto) Ocean # (Auto) Seg Neutrophils % Seg Neutrophils # PT INR APTT Sodium Potassium Chloride Carbon Dioxide BUN 28 H Creatinine 4.5 H Glucose 176 H POC Glucose Hemoglobin A1c Lactic Acid Calcium Total Bilirubin Direct Bilirubin 0.6 H AST 1744 H ALT 1938 H Alkaline Phosphatase 158 H CK-MB (CK-2) CK-MB (CK-2) Rel Index Troponin T Total Protein 5.7 L Albumin 2.7 L LDL Cholesterol Direct HDL Cholesterol TSH Free T4 Acetaminophen JULIA Screen Positive H 12/17/20 12/17/20 12/17/20 09:54 12:30 16:32 WBC RBC Hgb Hct MCV RDW Plt Count Lymph % (Auto) Ocean % (Auto) Ocean # (Auto) Seg Neutrophils % Seg Neutrophils # PT INR APTT Sodium Potassium Chloride Carbon Dioxide BUN Creatinine Glucose POC Glucose 150 H 154 H 146 H Hemoglobin A1c Lactic Acid Calcium Total Bilirubin Direct Bilirubin AST ALT Alkaline Phosphatase CK-MB (CK-2) CK-MB (CK-2) Rel Index Troponin T Total Protein Albumin LDL Cholesterol Direct HDL Cholesterol TSH Free T4 Acetaminophen JULIA Screen 12/17/20 12/18/20 12/18/20 20:26 05:57 05:57 WBC 14.8 H RBC 2.70 L Hgb 8.2 L Hct 27.5 L MCV 102 H RDW 22.5 H Plt Count 87 L Lymph % (Auto) Ocean % (Auto) Ocean # (Auto) Seg Neutrophils % Seg Neutrophils # PT INR APTT Sodium Potassium Chloride Carbon Dioxide 18 L D BUN 36 H Creatinine 6.0 H Glucose 63 L POC Glucose 107 H Hemoglobin A1c Lactic Acid Calcium Total Bilirubin 1.30 H Direct Bilirubin AST 1403 H ALT 1839 H Alkaline Phosphatase 149 H CK-MB (CK-2) CK-MB (CK-2) Rel Index Troponin T Total Protein 5.6 L Albumin 2.6 L LDL Cholesterol Direct HDL Cholesterol TSH Free T4 Acetaminophen JULIA Screen 12/18/20 12/18/20 12/18/20 05:57 08:03 08:14 WBC RBC Hgb Hct MCV RDW Plt Count Lymph % (Auto) Ocean % (Auto) Ocean # (Auto) Seg Neutrophils % Seg Neutrophils # PT INR APTT Sodium Potassium Chloride Carbon Dioxide BUN Creatinine Glucose POC Glucose 45 L 163 H Hemoglobin A1c 7.1 H Lactic Acid Calcium Total Bilirubin Direct Bilirubin AST ALT Alkaline Phosphatase CK-MB (CK-2) CK-MB (CK-2) Rel Index Troponin T Total Protein Albumin LDL Cholesterol Direct HDL Cholesterol TSH Free T4 Acetaminophen JULIA Screen 12/18/20 12/18/20 12/18/20 10:04 11:40 18:00 WBC RBC Hgb Hct MCV RDW Plt Count Lymph % (Auto) Ocean % (Auto) Ocean # (Auto) Seg Neutrophils % Seg Neutrophils # PT INR APTT Sodium Potassium Chloride Carbon Dioxide BUN Creatinine Glucose POC Glucose 129 H 128 H 161 H Hemoglobin A1c Lactic Acid Calcium Total Bilirubin Direct Bilirubin AST ALT Alkaline Phosphatase CK-MB (CK-2) CK-MB (CK-2) Rel Index Troponin T Total Protein Albumin LDL Cholesterol Direct HDL Cholesterol TSH Free T4 Acetaminophen JULIA Screen 12/18/20 12/19/20 12/19/20 21:40 01:26 05:49 WBC RBC Hgb Hct MCV RDW Plt Count Lymph % (Auto) Ocean % (Auto) Ocean # (Auto) Seg Neutrophils % Seg Neutrophils # PT INR APTT Sodium Potassium Chloride Carbon Dioxide BUN Creatinine Glucose POC Glucose 138 H 148 H 136 H Hemoglobin A1c Lactic Acid Calcium Total Bilirubin Direct Bilirubin AST ALT Alkaline Phosphatase CK-MB (CK-2) CK-MB (CK-2) Rel Index Troponin T Total Protein Albumin LDL Cholesterol Direct HDL Cholesterol TSH Free T4 Acetaminophen JULIA Screen 12/19/20 12/19/20 12/19/20 06:59 06:59 08:38 WBC 12.1 H RBC 2.76 L Hgb 8.5 L Hct 27.8 L MCV 101 H RDW 22.3 H Plt Count 82 L Lymph % (Auto) Ocean % (Auto) Ocean # (Auto) Seg Neutrophils % Seg Neutrophils # PT INR APTT Sodium 147 H Potassium Chloride Carbon Dioxide BUN 21 H Creatinine 3.9 H Glucose 144 H POC Glucose 139 H Hemoglobin A1c Lactic Acid Calcium Total Bilirubin 1.70 H Direct Bilirubin 1.2 H AST 871 H ALT 1552 H Alkaline Phosphatase 146 H CK-MB (CK-2) CK-MB (CK-2) Rel Index Troponin T Total Protein 5.6 L Albumin 2.7 L LDL Cholesterol Direct HDL Cholesterol TSH Free T4 Acetaminophen JULIA Screen 12/19/20 12/19/20 12/19/20 11:45 16:01 22:03 WBC RBC Hgb Hct MCV RDW Plt Count Lymph % (Auto) Ocean % (Auto) Ocean # (Auto) Seg Neutrophils % Seg Neutrophils # PT INR APTT Sodium Potassium Chloride Carbon Dioxide BUN Creatinine Glucose POC Glucose 138 H 141 H 121 H Hemoglobin A1c Lactic Acid Calcium Total Bilirubin Direct Bilirubin AST ALT Alkaline Phosphatase CK-MB (CK-2) CK-MB (CK-2) Rel Index Troponin T Total Protein Albumin LDL Cholesterol Direct HDL Cholesterol TSH Free T4 Acetaminophen JULIA Screen 12/20/20 12/20/20 12/20/20 03:18 05:46 05:48 WBC RBC Hgb Hct MCV RDW Plt Count Lymph % (Auto) Ocean % (Auto) Ocean # (Auto) Seg Neutrophils % Seg Neutrophils # PT INR APTT Sodium 146 H Potassium Chloride 109.6 H Carbon Dioxide 21 L BUN 32 H Creatinine 5.5 H Glucose 124 H POC Glucose 142 H 125 H Hemoglobin A1c Lactic Acid Calcium Total Bilirubin Direct Bilirubin AST ALT Alkaline Phosphatase CK-MB (CK-2) CK-MB (CK-2) Rel Index Troponin T Total Protein Albumin LDL Cholesterol Direct HDL Cholesterol TSH Free T4 Acetaminophen JULIA Screen 12/20/20 12/20/20 12/20/20 10:26 12:32 12:38 WBC RBC 2.64 L Hgb 8.1 L Hct 26.2 L MCV 99 H RDW 22.8 H Plt Count 82 L Lymph % (Auto) Ocean % (Auto) Ocean # (Auto) Seg Neutrophils % Seg Neutrophils # PT INR APTT Sodium Potassium Chloride Carbon Dioxide BUN Creatinine Glucose POC Glucose 139 H 136 H Hemoglobin A1c Lactic Acid Calcium Total Bilirubin Direct Bilirubin AST ALT Alkaline Phosphatase CK-MB (CK-2) CK-MB (CK-2) Rel Index Troponin T Total Protein Albumin LDL Cholesterol Direct HDL Cholesterol TSH Free T4 Acetaminophen JULIA Screen 12/20/20 12/20/20 12/20/20 16:05 20:00 23:23 WBC RBC Hgb Hct MCV RDW Plt Count Lymph % (Auto) Ocean % (Auto) Ocean # (Auto) Seg Neutrophils % Seg Neutrophils # PT INR APTT Sodium Potassium Chloride Carbon Dioxide BUN Creatinine Glucose POC Glucose 123 H 116 H 112 H Hemoglobin A1c Lactic Acid Calcium Total Bilirubin Direct Bilirubin AST ALT Alkaline Phosphatase CK-MB (CK-2) CK-MB (CK-2) Rel Index Troponin T Total Protein Albumin LDL Cholesterol Direct HDL Cholesterol TSH Free T4 Acetaminophen JULIA Screen 12/21/20 12/21/20 12/22/20 08:38 11:21 03:28 WBC RBC Hgb Hct MCV RDW Plt Count Lymph % (Auto) Ocean % (Auto) Ocean # (Auto) Seg Neutrophils % Seg Neutrophils # PT INR APTT Sodium Potassium Chloride Carbon Dioxide BUN Creatinine Glucose POC Glucose 127 H 117 H 125 H Hemoglobin A1c Lactic Acid Calcium Total Bilirubin Direct Bilirubin AST ALT Alkaline Phosphatase CK-MB (CK-2) CK-MB (CK-2) Rel Index Troponin T Total Protein Albumin LDL Cholesterol Direct HDL Cholesterol TSH Free T4 Acetaminophen JULIA Screen 12/22/20 12/22/20 12/22/20 05:06 05:06 07:42 WBC RBC 2.82 L Hgb 8.8 L Hct 28.6 L MCV 101 H RDW 23.8 H Plt Count 67 L Lymph % (Auto) Ocean % (Auto) Ocean # (Auto) Seg Neutrophils % Seg Neutrophils # PT INR APTT Sodium Potassium Chloride Carbon Dioxide BUN 30 H Creatinine 5.1 H Glucose 123 H POC Glucose 117 H Hemoglobin A1c Lactic Acid Calcium 8.3 L Total Bilirubin 2.70 H Direct Bilirubin AST 150 H ALT 644 H Alkaline Phosphatase 148 H CK-MB (CK-2) CK-MB (CK-2) Rel Index Troponin T Total Protein 5.6 L Albumin 2.3 L LDL Cholesterol Direct HDL Cholesterol TSH Free T4 Acetaminophen JULIA Screen 12/22/20 12/22/20 12/22/20 11:45 16:22 16:37 WBC RBC Hgb 9.4 L Hct MCV RDW Plt Count Lymph % (Auto) Ocean % (Auto) Ocean # (Auto) Seg Neutrophils % Seg Neutrophils # PT INR APTT Sodium Potassium Chloride Carbon Dioxide BUN Creatinine Glucose POC Glucose 113 H 115 H Hemoglobin A1c Lactic Acid Calcium Total Bilirubin Direct Bilirubin AST ALT Alkaline Phosphatase CK-MB (CK-2) CK-MB (CK-2) Rel Index Troponin T Total Protein Albumin LDL Cholesterol Direct HDL Cholesterol TSH Free T4 Acetaminophen JULIA Screen 12/22/20 12/22/20 12/23/20 19:52 23:35 04:17 WBC RBC Hgb Hct MCV RDW Plt Count Lymph % (Auto) Ocean % (Auto) Ocean # (Auto) Seg Neutrophils % Seg Neutrophils # PT INR APTT Sodium Potassium Chloride Carbon Dioxide BUN Creatinine Glucose POC Glucose 119 H 143 H 170 H Hemoglobin A1c Lactic Acid Calcium Total Bilirubin Direct Bilirubin AST ALT Alkaline Phosphatase CK-MB (CK-2) CK-MB (CK-2) Rel Index Troponin T Total Protein Albumin LDL Cholesterol Direct HDL Cholesterol TSH Free T4 Acetaminophen JULIA Screen 12/23/20 12/23/20 12/23/20 06:06 07:31 08:14 WBC RBC 3.03 L Hgb 8.8 L 9.6 L Hct 28.1 L MCV 100 H RDW 25.2 H Plt Count 54 L Lymph % (Auto) Ocean % (Auto) Ocean # (Auto) Seg Neutrophils % Seg Neutrophils # PT INR APTT Sodium Potassium Chloride Carbon Dioxide BUN Creatinine Glucose POC Glucose 174 H Hemoglobin A1c Lactic Acid Calcium Total Bilirubin Direct Bilirubin AST ALT Alkaline Phosphatase CK-MB (CK-2) CK-MB (CK-2) Rel Index Troponin T Total Protein Albumin LDL Cholesterol Direct HDL Cholesterol TSH Free T4 Acetaminophen JULIA Screen 12/23/20 12/23/20 12/23/20 14:56 16:49 23:44 WBC RBC Hgb 9.1 L Hct 29.6 L MCV RDW Plt Count Lymph % (Auto) Ocean % (Auto) Ocean # (Auto) Seg Neutrophils % Seg Neutrophils # PT INR APTT Sodium Potassium Chloride Carbon Dioxide BUN Creatinine Glucose POC Glucose 212 H 223 H Hemoglobin A1c Lactic Acid Calcium Total Bilirubin Direct Bilirubin AST ALT Alkaline Phosphatase CK-MB (CK-2) CK-MB (CK-2) Rel Index Troponin T Total Protein Albumin LDL Cholesterol Direct HDL Cholesterol TSH Free T4 Acetaminophen JULIA Screen
--- NOTE | 2020-12-24 14:37 | Progress Note ---
Assessment and Plan The patient is a 70 YO female with history significant for Hypertension, Anemia, Arthritis, CAD s/p CABG and ESRD on hemodialysis (MWF) who presented to [facility] ED 12/16 with altered mental status. Patient was recently seen here in this hospital about a week ago with hyperkalemia during which she had emergent dialysis. She has had a COVID-19 vaccination. Work-up in the emergency room showed wbc 18.2, INR of 2.8, K 5.4, BUN 34, creatinine 5.6, Lactic acid of 6.6, elevated liver enzymes with AST 2838 and ALT 1353 and Troponin 0.72. Chest x-ray showed reduced lung volumes with probable bilateral atelectasis/edema. CT scan of the head showed no acute findings. Patient has been admitted with altered mental status, hyperkalemia, lactic acidosis, elevated liver enzymes and elevated troponin. Assessment and plan: --Acute metabolic encephalopathy Possibly secondary to multiple underlying problems including possible sepsis, end-stage renal disease with hyperkalemia and elevated liver enzymes. Will monitor mental status. MRI brain without any acute infarct, neurology consulted and recommended to obtain EEG which is pending Patient remains pleasantly confused, continue supportive care and tube feeding --Suspected sepsis sepsis, POA No clear source of infection yet, completed Cefepime and Vancomycin ID following --Thrombocytopenia may be due to Sepsis. To r/o HIT Plaletets getting lower 67 today She did not get any Heparin this admission but got Heparin last admission just few days earlier Obtain HIT test Consult Hematology -- ESRD (end stage renal disease) Nephrology consulted for hemodialysis, follow BMP, avoid nephrotoxic agents --Hyperkalemia Possibly secondary to the end-stage renal disease. Patient treated with Kayexalate, insulin/glucose, sodium bicarb and will monitor potassium levels. --Elevated liver enzymes Etiology unclear, likely due to shock liver GI was consulted, liver serologies are negative Continue to trend and medical management --Elevated troponin/NSTEMI type II Possibly secondary to the underlying end-stage renal disease versus sepsis. However we trend cardiac enzymes and request cardiology evaluation and recommendations. --Diabetes mellitus type II Patient placed on sliding scale insulin. We will monitor Accu-Cheks closely. --DVT prophylaxis Current Visit: Yes Status: Acute Plan to address problem: Patient currently on anticoagulation with Eliquis. --Full code status Daily clinical course: 12/17/20 Patient with ESRD on hemodialysis presents with altered mental status, acute metabolic encephalopathy. Also has markedly elevated AST and ALT GI consulted. Her LFTs were normal last admission just 5 days ago. 12/18/20 Patient with ESRD on hemodialysis. Rapid response called this morning. She is very lethargic, minimal responsive. Bld glucose 45mg/dl and BP 74/15. She was given 1 amp D50. Blood glucose now 163. BP up to 123/30 but MAP still under 65. Will give 500 ml Normal Saline and transfer to [facility].I discussed with Dr. Chong, Nephrology. LFTs improving though still very high. 12/19/20 Patient with ESRD on hemodialysis. Rapid response called yesterday for hypoglycemia and hypotension, so transferred to [facility]. Blood glucose normalized. BP improved. 12/20/20 Patient with ESRD on hemodialysis. Presented with altered mental status. Was transferred to [facility] on 12/18/20. Still has altered mental status, very lethargic. MRI ordered. Neurology consulted. 12/21/20 Patient with ESRD on hemodialysis. Presented with altered mental status. Was transferred to [facility] on 12/18/20. Still has altered mental status, very lethargic. MRI ordered. EEG ordered. Patient ws evaluated by Neurology. Will talk to family. 12/22/20 Patient with ESRD on hemodialysis, diabetes,hypertension. She presented with altered mental status. She has been diagnosed with sepsis(POA), hypoglycemia, hypotension, thrombocytopenia. Was transferred to [facility] on 12/18/20 because of episode of hypoglycemia and hypotension. . Still has altered mental status, very lethargic. Neurology was consulted MRI ordered. EEG ordered. I s poke to daughter Michelle Kruger yesterday and gave update. For thrombocytopenia, will obtain HIT. Consult Hematology For blood in stool, will re-consult GI. Check H/H serially Elevated LFTs likely due to shock liver, improving 12/23/20 Patient with ESRD on hemodialysis, diabetes,hypertension. She p resented with altered mental status. She has been diagnosed with sepsis(POA), hypoglycemia, hypotension, thrombocytopenia. Was transferred to [facility] on 12/18/20 because of episode of hypoglycemia and hypotension. . Still has altered mental status, very lethargic. Neurology was consulted MRI ordered. EEG ordered. I spoke to daughter Michelle Kruger few days ago and gave update. Patient has thrombocytopenia, worsening 54 today. Consult Hematology. HIT ordered For blood in stool, will re-consult GI. Check H/H serially Elevated LFTs likely due to shock liver, improving. Was initially evaluated by GI patient stable to transfer back to [facility] since BP stable. 12/24/20; MRI brain yesterday showed extensive chronic changes but no acute infarct. Patient remains confused on TF. speech recommended pureed diet on prior assessment- will initiate. cont to follow Subjective Date of service: 12/24/20 Principal diagnosis: change in mentation,ESRD Interval history: Patient seen and examined. Medical records and medication list reviewed. No acute event overnight noted by the RN. Patient remains confused and lethargic Initiated on tube feeding, discussed plan of care with RN and case management Objective - Exam Narrative Exam: - General Apperance Constitutional: uncomfortable, other (moaning at time and lethargic) - EENT EENT: PERRL, mucous membranes moist - Respiratory Respiratory: chest non-tender, lungs clear, rales, rhonchi - Cardiovascular Cardiovascular: regular rate, normal S1, normal S2 Extremities: no peripheral edema bilat, no clubbing, cyanosis - Gastrointestinal Gastrointestinal: normoactive bowel sounds - Integumentary Integumentary: normal - Neurologic Cranial nerve examination: PERRL, EOMI, intact (left facial droop ) Detailed motor examination: Moves extremities - Constitutional Vitals: Vital Signs - 12hr 12/24/20 12/24/20 12/24/20 03:50 08:00 08:09 Temperature 97.8 F 98.6 F Pulse Rate 88 90 95 H Respiratory 20 18 Rate Blood Pressure 140/36 138/55 O2 Sat by Pulse 100 98 Oximetry 12/24/20 12:22 Temperature Pulse Rate 89 Respiratory 18 Rate Blood Pressure 118/93 O2 Sat by Pulse 93 Oximetry - Labs CBC & Chem 7: 12/26/20 07:51 12/25/20 15:30 Labs: Abnormal lab results 12/23/20 12/23/20 12/23/20 Range/Units 14:56 16:49 23:44 Hgb 9.1 L (10.1-14.3) gm/dl Hct 29.6 L (30.3-42.9) % POC Glucose 212 H 223 H (70-105) mg/dL 12/24/20 Range/Units 12:30 Hgb (10.1-14.3) gm/dl Hct (30.3-42.9) % POC Glucose 297 H (70-105) mg/dL HEART Score - HEART Score Troponin: Troponin T 0.731 ng/mL (0.00-0.029) H* 12/16/20 05:48
[2020-12-25] MEDS: INSULIN REGULAR, HUMAN 100 UNITS/1 ML SUB-Q SCH ×5 (01:10→23:31)
[2020-12-25] MEDS: MIDODRINE 5 MG TAB PO SCH ×3 (08:00→17:21)
--- NOTE | 2020-12-25 08:54 | Progress Note ---
Assessment and Plan 1. ESRD: Patient is on maintenance hemodialysis three times a week, MWF schedule. Meds dosage based on GFR. Hemodialysis: 12/16, 12/18, 12/20, 12/23, 12/25. 2. FEN: Hyperkalemia, improved. Anion-gap metabolic acidosis, improved. Monitor lytes and volume status. 3. Anemia, POA: 2/2 ESRD. Epogen with HD. 4. Acute metabolic encephalopathy, POA: CT head negative. Seen by Neuro. Monitor. 5. Sepsis, POA: S/p Abx. Bl culture negative. 6. Elevated Troponin: Followed by Cards. 7. Hypotension: On Midodrine. Monitor BP. 8. Elevated ALT / AST: Improving. 9. Hypoglycemia: Improved. Subjective: Patient was seen and examined at the bedside. General Appearance: General appearance: well-developed, appears stated age, not in distress HEENT: ATNC, pupils equal Neck: trachea midline Respiratory: ctab Heart: regular, S1S2, no murmur Abdomen: soft, bowel sounds heard, not tender Integumentary: b/l leg dressing noted Neurologic: lethargic, not following any command, not conversing Ext: no edema Hemodialysis access: L IJ tunnel catheter Subjective Date of service: 12/25/20 Principal diagnosis: change in mentation,ESRD Objective - Vital Signs Vital signs: Vital Signs - 12hr 12/24/20 12/24/20 12/25/20 21:05 22:00 02:00 Temperature 98.5 F Pulse Rate 94 H Respiratory 20 Rate Blood Pressure 115/54 [Right] O2 Sat by Pulse 99 96 99 Oximetry - Lab 12/23/20 14:56 12/25/20 15:30 Most recent lab results Calcium 8.3 mg/dL (8.4-10.2) L 12/22/20 05:06 Medications & Allergies - Medications Allergies/Adverse Reactions: Allergies No Known Allergies Allergy (Verified 12/11/20 17:11) Home Medications: Home Medications Medication Instructions Recorded Confirmed Last Taken Type Apixaban [Eliquis] 5 mg PO BID 12/16/20 12/16/20 Unknown History Aspirin [Adult Aspirin] 81 mg PO QDAY 12/16/20 12/16/20 Unknown History Escitalopram [Lexapro] 10 mg PO DAILY 12/16/20 12/16/20 Unknown History Gabapentin 300 mg PO QDAY 12/16/20 12/16/20 Unknown History Levemir Flextouch 6 units SUB-Q HS 12/16/20 12/22/20 Unknown History Midodrine [Proamatine] 15 mg PO TID 12/16/20 12/16/20 Unknown History NovoLOG Flexpen 6 units SUB-Q BID 12/16/20 12/22/20 Unknown History Pantoprazole [Protonix] 40 mg PO QDAY 12/16/20 12/16/20 Unknown History Vit B Comp No.3/Folic/C/Biotin 1 each PO DAILY 12/16/20 12/16/20 Unknown History [Nephro-Nola Rx Tablet] sevelamer HCL [Sevelamer HCl] 800 mg PO TID 12/16/20 12/16/20 Unknown History Active Medications: Generic Name Dose Route Start Last Admin Trade Name Freq PRN Reason Stop Dose Admin Lipase/Protease/Amylase 1 each 12/22/20 10:34 Lipase 10,500/Protease 25,000/Amylase 43,750 (Units) Dr Lazar FEEDTUBE PRN PRN For Clogged Feeding Tube Dextrose 0 ml 12/16/20 03:40 12/18/20 08:23 Dextrose 50% In Water (25gm) 50 Ml Syringe IV 50 ml Q30MIN PRN Administration Hypoglycemia Protocol Sodium Chloride 1,000 mls @ 75 mls/hr 12/16/20 03:45 12/17/20 22:24 Nacl 0.9% 1000 Ml IV 75 mls/hr DIRECT JEET Administration Sodium Chloride 100 mls @ 999 mls/hr 12/20/20 09:20 Nacl 0.9% IV ROSA M PRN Hypotension Insulin Human Regular 0 units 12/24/20 18:00 12/25/20 08:10 Insulin Regular, Human 100 Units/1 Ml SUB-Q Not Given Q6HR JEET Protocol Lansoprazole 30 mg 12/25/20 10:00 Lansoprazole 30 Mg Solutab FEEDTUBE QDAY JEET Magnesium Hydroxide 30 ml 12/16/20 03:40 Magnesium Hydroxide (Mom) Oral Liqd Udc PO Q4H PRN Constipation Midodrine 5 mg 12/16/20 12:00 12/24/20 16:45 Midodrine 5 Mg Tab PO Not Given TID@0800,1200,1600 JEET Morphine Sulfate 0.5 mg 12/18/20 13:00 Morphine 2 Mg/1 Ml Inj IV Q6H PRN Pain, Moderate (4-6) Ondansetron HCl 4 mg 12/16/20 03:40 Ondansetron 4 Mg/2 Ml Inj IV Q8H PRN Nausea And Vomiting Simple Syrup 15 ml 12/22/20 08:19 Simple Syrup 15 Ml FEEDTUBE PRN PRN Hypoglycemia Simple Syrup 30 ml 12/22/20 08:19 Simple Syrup 15 Ml FEEDTUBE PRN PRN Hypoglycemia Sodium Bicarbonate 325 mg 12/22/20 10:34 Sodium Bicarbonate 325 Mg Tab FEEDTUBE PRN PRN For Clogged Feeding Tube Sodium Chloride 10 ml 12/16/20 10:00 12/24/20 23:20 Sodium Chloride 0.9% 10 Ml Flush Syringe IV 10 ml BID JEET Administration Sodium Chloride 10 ml 12/16/20 03:40 Sodium Chloride 0.9% 10 Ml Flush Syringe IV PRN PRN LINE FLUSH
--- NOTE | 2020-12-25 11:15 | Progress Note ---
Assessment and Plan - Patient Problems (1) Elevated troponin Current Visit: Yes Status: Acute Plan to address problem: Troponin elevation, nonspecific finding in the setting of end-stage renal failure. An echocardiogram shows a four-chamber dilated cardiomyopathy, left ventricular ejection fraction 30 to 35%. There is mild to moderate mitral stenosis, moderate to severe mitral regurgitation, moderate to severe tricuspid regurgitation and severe pulmonary hypertension. Conservative medical therapy as tolerated for cardiomyopathy and valvular heart disease. Subjective Date of service: 12/25/20 Principal diagnosis: change in mentation,ESRD Interval history: No interval cardiac changes. Objective Vital Signs Temp Pulse Resp BP BP Pulse Ox 12/25/20 10:00 95 H 96 12/25/20 08:05 97.4 F L 95 H 18 113/26 96 12/25/20 02:00 99 12/24/20 22:00 96 12/24/20 21:06 98.5 F 18 115/54 12/24/20 21:05 98.5 F 94 H 20 115/54 99 12/24/20 16:43 98.6 F 95 H 19 159/39 96 12/24/20 14:00 96 12/24/20 12:22 89 18 118/93 93 - Physical Examination General: No Apparent Distress HEENT: Positive: PERRL Neck: Positive: neck supple Cardiac: Positive: Reg Rate and Rhythm Lungs: Positive: Decreased Breath Sounds Neuro: Positive: Weakness Abdomen: Positive: Soft Skin: Positive: Clear Extremities: Absent: edema
--- NOTE | 2020-12-25 13:32 | Consultation ---
History of Present Illness Consult date: 12/25/20 Chief complaint: BLE ulcers - History of present illness History of present illness: 70 yo diabetic female admitted with AMS with multiple BLE ulcers. Pt is non- communicative. She is undergoing an EEG now. Past History Past Medical History: diabetes, dialysis, ESRD, hypertension Past Surgical History: Other (Left arm AV fistula, Left chest Vas Cath.) Social history: no significant social history Family history: no significant family history Medications and Allergies Allergies Allergy/AdvReac Type Severity Reaction Status Date / Time No Known Allergies Allergy Verified 12/11/20 17:11 Home Medications Medication Instructions Recorded Confirmed Last Taken Type Apixaban [Eliquis] 5 mg PO BID 12/16/20 12/16/20 Unknown History Aspirin [Adult Aspirin] 81 mg PO QDAY 12/16/20 12/16/20 Unknown History Escitalopram [Lexapro] 10 mg PO DAILY 12/16/20 12/16/20 Unknown History Gabapentin 300 mg PO QDAY 12/16/20 12/16/20 Unknown History Levemir Flextouch 6 units SUB-Q HS 12/16/20 12/22/20 Unknown History Midodrine [Proamatine] 15 mg PO TID 12/16/20 12/16/20 Unknown History NovoLOG Flexpen 6 units SUB-Q BID 12/16/20 12/22/20 Unknown History Pantoprazole [Protonix] 40 mg PO QDAY 12/16/20 12/16/20 Unknown History Vit B Comp No.3/Folic/C/Biotin 1 each PO DAILY 12/16/20 12/16/20 Unknown History [Nephro-Nola Rx Tablet] sevelamer HCL [Sevelamer HCl] 800 mg PO TID 12/16/20 12/16/20 Unknown History Active Meds: Active Medications Lipase/Protease/Amylase (Lipase 10,500/Protease 25,000/Amylase 43,750 (Units) Dr Lazar) 1 each FEEDTUBE PRN PRN PRN Reason: For Clogged Feeding Tube Dextrose (Dextrose 50% In Water (25gm) 50 Ml Syringe) 0 ml IV Q30MIN PRN; Protocol PRN Reason: Hypoglycemia Last Admin: 12/18/20 08:23 Dose: 50 ml Documented by: Sodium Chloride (Nacl 0.9% 1000 Ml) 1,000 mls @ 75 mls/hr IV DIRECT JEET Last Admin: 12/17/20 22:24 Dose: 75 mls/hr Documented by: Sodium Chloride (Nacl 0.9%) 100 mls @ 999 mls/hr IV ROSA M PRN PRN Reason: Hypotension Insulin Human Regular (Insulin Regular, Human 100 Units/1 Ml) 0 units SUB-Q Q6HR [facility]; Protocol Last Admin: 12/25/20 08:10 Dose: Not Given Documented by: Lansoprazole (Lansoprazole 30 Mg Solutab) 30 mg FEEDTUBE QDAY [facility] Magnesium Hydroxide (Magnesium Hydroxide (Mom) Oral Liqd Udc) 30 ml PO Q4H PRN PRN Reason: Constipation Midodrine (Midodrine 5 Mg Tab) 5 mg PO TID@0800,1200,1600 [facility] Last Admin: 12/25/20 08:00 Dose: Not Given Documented by: Morphine Sulfate (Morphine 2 Mg/1 Ml Inj) 0.5 mg IV Q6H PRN PRN Reason: Pain, Moderate (4-6) Ondansetron HCl (Ondansetron 4 Mg/2 Ml Inj) 4 mg IV Q8H PRN PRN Reason: Nausea And Vomiting Simple Syrup (Simple Syrup 15 Ml) 15 ml FEEDTUBE PRN PRN PRN Reason: Hypoglycemia Simple Syrup (Simple Syrup 15 Ml) 30 ml FEEDTUBE PRN PRN PRN Reason: Hypoglycemia Sodium Bicarbonate (Sodium Bicarbonate 325 Mg Tab) 325 mg FEEDTUBE PRN PRN PRN Reason: For Clogged Feeding Tube Sodium Chloride (Sodium Chloride 0.9% 10 Ml Flush Syringe) 10 ml IV BID [facility] Last Admin: 12/24/20 23:20 Dose: 10 ml Documented by: Sodium Chloride (Sodium Chloride 0.9% 10 Ml Flush Syringe) 10 ml IV PRN PRN PRN Reason: LINE FLUSH Review of Systems ROS unobtainable: due to mental status Exam Vital Signs Temp Pulse Resp BP Pulse Ox 98.3 F 97 H 23 125/55 98 12/16/20 01:03 12/16/20 01:03 12/16/20 01:03 12/16/20 01:03 12/16/20 01:03 - General physical appearance Positive: well developed, well nourished, no distress - Eyes Positive: PERRL, normal occular movement - ENT Positive: normal pinna, normal nares, normal mucosa, no hearing loss, no congestion - Neck Positive: no masses, no bruits, trachea midline, no venous distension - Respiratory Positive: normal expansion, normal respiratory effort, clear to auscultation - Cardiovascular Rhythm: regular Heart Sounds: Present: S1 & S2. Absent: rub, click - Extremities Extremities: no ischemia, pulses symmetrical, No edema - Breasts Breasts: normal, no mass, no skin changes - Abdomen Abdomen: Present: soft, bowel sounds normal. Absent: tender, distended Hernia: none - Genitourinary Male Genitourinary: normal Female Genitourinary: normal - Integumentary no rash, no growths, no abnormal pigmentation, other (There is a 6 X 3 X 0.3 cm ulceration of the left medial leg, 5 X 6 X 0.1 cm ulcer of the left heel with overlying eschar, 7.5 X 7 X 0.3 cm ulcer of the right medial leg with eschar & 6 X 4.5 X 0.3 cm ulcer of the right heel with eschar.) - Psychiatric Psychiatric: other (Non-communicative) Results - Labs 12/23/20 14:56 12/22/20 05:06 Abnormal lab results 12/24/20 12/25/20 12/25/20 Range/Units 18:32 00:07 07:02 POC Glucose 309 H 190 H 188 H (70-105) mg/dL Assessment and Plan - Patient Problems (1) Pressure ulcer of both heels, unstageable Current Visit: Yes Status: Acute Plan to address problem: 1) Off loading 2) Strict DM management 3) Arterial dopplers of BLE 4) Wound Care nurse consult 5) I will discuss debridement with family after #3.
--- NOTE | 2020-12-25 14:10 | Progress Note ---
Assessment and Plan Assessment and Plan # Altered mental status -Possibly secondary to multiple underlying problems including possible sepsis, end-stage renal disease with hyperkalemia and elevated liver enzymes. Will monitor mental status. #Sepsis, POA Completed Cefepime and Vancomycin ID following #Thrombocytopenia may be due to Sepsis. To r/o HIT Plaletets getting lower 67 today Consult Hematology is noted # ESRD (end stage renal disease) -nephrology follow #Hyperkalemia -Possibly secondary to the end-stage renal disease. -Patient will be given Kayexalate, insulin/glucose, sodium bicarb and will monitor potassium levels. #Elevated liver enzymes -hepatic profil #Elevated troponin -Possibly secondary to the underlying end-stage renal disease versus sepsis. However we trend cardiac enzymes and request cardiology evaluation and recommendations. #Diabetes mellitus Patient placed on sliding scale insulin. We will monitor Accu-Cheks closely. # DVT prophylaxis -Patient currently on anticoagulation with Eliquis. #Full code status -Patient is full code. #Positive JULIA -ESR#53 -DSDNA -rh factor PLAN 1- EEG today will review doubt seizure 2- review DNA labs 3- Bilateral feet pressure ulcer as well decubitus ulcer will follow as needed over all prognosis is quarded to poor . Subjective Date of service: 12/25/20 Principal diagnosis: change in mentation,ESRD Interval history: awak not follow command slight withdrawal to pain , may be some time squeeze hand ? no reported seizure MRI brain is with no acute finding she is with left facial droop. drolling with moaning when asked question no clear speech out put EEG today Labs ?ANTI DNA is pending -evaluated by surgery for feet ulcer Objective - Vital Sign Vital Signs - 12hr 12/25/20 12/25/20 08:05 10:00 Temperature 97.4 F L Pulse Rate 95 H 95 H Respiratory 18 Rate Blood Pressure 113/26 O2 Sat by Pulse 96 96 Oximetry - General Apperance Constitutional: uncomfortable - EENT EENT: PERRL, mucous membranes moist - Respiratory Respiratory: chest non-tender, lungs clear, rhonchi - Cardiovascular Cardiovascular: normal S1, normal S2 Extremities: other (discoloration of both feet as well as pressure ulcer dry ) - Gastrointestinal Gastrointestinal: normoactive bowel sounds - Neurologic Cranial nerve examination: PERRL, EOMI, other (slight left facial droop.) Speech examination: other (moaning slightly if any follow simple command , open eyes when call name and track ) Detailed motor examination: other (slight withdrawal both lower and upper to pain stimuli only slightly ) - Laboratory Findings CBC and BMP: 12/23/20 14:56 12/22/20 05:06 Abnormal Lab Findings: Abnormal Labs 12/16/20 12/16/20 12/16/20 00:38 00:57 00:57 WBC 18.2 H RBC 3.13 L Hgb 9.4 L Hct MCV 100 H RDW 22.7 H Plt Count Lymph % (Auto) 8.0 L [place] % (Auto) 7.8 H [place] # (Auto) 1.4 H Seg Neutrophils % 83.4 H Seg Neutrophils # 15.2 H PT 29.9 H INR 2.80 H APTT 39.9 H Sodium Potassium Chloride Carbon Dioxide BUN Creatinine Glucose POC Glucose 116 H Hemoglobin A1c Lactic Acid Calcium Total Bilirubin Direct Bilirubin AST ALT Alkaline Phosphatase CK-MB (CK-2) CK-MB (CK-2) Rel Index Troponin T Total Protein Albumin LDL Cholesterol Direct HDL Cholesterol TSH Free T4 Acetaminophen JULIA Screen 12/16/20 12/16/20 12/16/20 00:57 00:57 00:57 WBC RBC Hgb Hct MCV RDW Plt Count Lymph % (Auto) [place] % (Auto) [place] # (Auto) Seg Neutrophils % Seg Neutrophils # PT INR APTT Sodium 136 L Potassium 5.4 H Chloride 94.2 L Carbon Dioxide 18 L D BUN 34 H Creatinine 5.6 H Glucose 108 H POC Glucose Hemoglobin A1c Lactic Acid 8.10 H* Calcium Total Bilirubin 1.30 H Direct Bilirubin AST 2838 H ALT 1353 H Alkaline Phosphatase 186 H CK-MB (CK-2) 5.1 H CK-MB (CK-2) Rel Index 6.0 H Troponin T 0.720 H* Total Protein Albumin 3.2 L LDL Cholesterol Direct 34 L HDL Cholesterol 64 H TSH 6.720 H Free T4 1.54 H Acetaminophen JULIA Screen 12/16/20 12/16/20 12/16/20 01:45 05:48 05:48 WBC RBC Hgb Hct MCV RDW Plt Count Lymph % (Auto) [place] % (Auto) [place] # (Auto) Seg Neutrophils % Seg Neutrophils # PT INR APTT Sodium Potassium Chloride Carbon Dioxide BUN Creatinine Glucose POC Glucose Hemoglobin A1c Lactic Acid 6.60 H* 6.00 H* Calcium Total Bilirubin Direct Bilirubin AST ALT Alkaline Phosphatase CK-MB (CK-2) CK-MB (CK-2) Rel Index Troponin T 0.731 H* Total Protein Albumin LDL Cholesterol Direct HDL Cholesterol TSH Free T4 Acetaminophen JULIA Screen 12/16/20 12/16/20 12/16/20 05:48 05:48 07:57 WBC RBC Hgb Hct MCV RDW Plt Count Lymph % (Auto) [place] % (Auto) [place] # (Auto) Seg Neutrophils % Seg Neutrophils # PT INR APTT Sodium Potassium Chloride Carbon Dioxide BUN Creatinine Glucose POC Glucose 115 H 118 H Hemoglobin A1c Lactic Acid Calcium Total Bilirubin Direct Bilirubin AST ALT Alkaline Phosphatase CK-MB (CK-2) CK-MB (CK-2) Rel Index Troponin T Total Protein Albumin LDL Cholesterol Direct HDL Cholesterol TSH Free T4 Acetaminophen 5.0 L JULIA Screen 12/16/20 12/16/20 12/16/20 10:35 11:30 16:12 WBC RBC Hgb Hct MCV RDW Plt Count Lymph % (Auto) [place] % (Auto) [place] # (Auto) Seg Neutrophils % Seg Neutrophils # PT INR APTT Sodium Potassium Chloride Carbon Dioxide BUN Creatinine Glucose POC Glucose 124 H 115 H Hemoglobin A1c Lactic Acid 2.40 H* Calcium Total Bilirubin Direct Bilirubin AST ALT Alkaline Phosphatase CK-MB (CK-2) CK-MB (CK-2) Rel Index Troponin T Total Protein Albumin LDL Cholesterol Direct HDL Cholesterol TSH Free T4 Acetaminophen JULIA Screen 12/16/20 12/17/20 12/17/20 21:00 05:42 05:42 WBC 12.0 H RBC 2.52 L Hgb 7.6 L Hct 24.6 L D MCV 98 H RDW 22.7 H Plt Count 137 L Lymph % (Auto) 9.7 L [place] % (Auto) 8.3 H [place] # (Auto) 1.0 H Seg Neutrophils % 78.2 H Seg Neutrophils # 9.4 H PT 26.3 H INR 2.36 H APTT Sodium Potassium Chloride Carbon Dioxide BUN Creatinine Glucose POC Glucose 149 H Hemoglobin A1c Lactic Acid Calcium Total Bilirubin Direct Bilirubin AST ALT Alkaline Phosphatase CK-MB (CK-2) CK-MB (CK-2) Rel Index Troponin T Total Protein Albumin LDL Cholesterol Direct HDL Cholesterol TSH Free T4 Acetaminophen JULIA Screen 12/17/20 12/17/20 12/17/20 05:42 05:42 05:42 WBC RBC Hgb Hct MCV RDW Plt Count Lymph % (Auto) [place] % (Auto) [place] # (Auto) Seg Neutrophils % Seg Neutrophils # PT INR APTT Sodium Potassium Chloride Carbon Dioxide BUN 28 H Creatinine 4.5 H Glucose 176 H POC Glucose Hemoglobin A1c Lactic Acid Calcium Total Bilirubin Direct Bilirubin 0.6 H AST 1744 H ALT 1938 H Alkaline Phosphatase 158 H CK-MB (CK-2) CK-MB (CK-2) Rel Index Troponin T Total Protein 5.7 L Albumin 2.7 L LDL Cholesterol Direct HDL Cholesterol TSH Free T4 Acetaminophen JULIA Screen Positive H 12/17/20 12/17/20 12/17/20 09:54 12:30 16:32 WBC RBC Hgb Hct MCV RDW Plt Count Lymph % (Auto) [place] % (Auto) [place] # (Auto) Seg Neutrophils % Seg Neutrophils # PT INR APTT Sodium Potassium Chloride Carbon Dioxide BUN Creatinine Glucose POC Glucose 150 H 154 H 146 H Hemoglobin A1c Lactic Acid Calcium Total Bilirubin Direct Bilirubin AST ALT Alkaline Phosphatase CK-MB (CK-2) CK-MB (CK-2) Rel Index Troponin T Total Protein Albumin LDL Cholesterol Direct HDL Cholesterol TSH Free T4 Acetaminophen JULIA Screen 12/17/20 12/18/20 12/18/20 20:26 05:57 05:57 WBC 14.8 H RBC 2.70 L Hgb 8.2 L Hct 27.5 L MCV 102 H RDW 22.5 H Plt Count 87 L Lymph % (Auto) [place] % (Auto) [place] # (Auto) Seg Neutrophils % Seg Neutrophils # PT INR APTT Sodium Potassium Chloride Carbon Dioxide 18 L D BUN 36 H Creatinine 6.0 H Glucose 63 L POC Glucose 107 H Hemoglobin A1c Lactic Acid Calcium Total Bilirubin 1.30 H Direct Bilirubin AST 1403 H ALT 1839 H Alkaline Phosphatase 149 H CK-MB (CK-2) CK-MB (CK-2) Rel Index Troponin T Total Protein 5.6 L Albumin 2.6 L LDL Cholesterol Direct HDL Cholesterol TSH Free T4 Acetaminophen JULIA Screen 12/18/20 12/18/20 12/18/20 05:57 08:03 08:14 WBC RBC Hgb Hct MCV RDW Plt Count Lymph % (Auto) [place] % (Auto) [place] # (Auto) Seg Neutrophils % Seg Neutrophils # PT INR APTT Sodium Potassium Chloride Carbon Dioxide BUN Creatinine Glucose POC Glucose 45 L 163 H Hemoglobin A1c 7.1 H Lactic Acid Calcium Total Bilirubin Direct Bilirubin AST ALT Alkaline Phosphatase CK-MB (CK-2) CK-MB (CK-2) Rel Index Troponin T Total Protein Albumin LDL Cholesterol Direct HDL Cholesterol TSH Free T4 Acetaminophen JULIA Screen 12/18/20 12/18/20 12/18/20 10:04 11:40 18:00 WBC RBC Hgb Hct MCV RDW Plt Count Lymph % (Auto) [place] % (Auto) [place] # (Auto) Seg Neutrophils % Seg Neutrophils # PT INR APTT Sodium Potassium Chloride Carbon Dioxide BUN Creatinine Glucose POC Glucose 129 H 128 H 161 H Hemoglobin A1c Lactic Acid Calcium Total Bilirubin Direct Bilirubin AST ALT Alkaline Phosphatase CK-MB (CK-2) CK-MB (CK-2) Rel Index Troponin T Total Protein Albumin LDL Cholesterol Direct HDL Cholesterol TSH Free T4 Acetaminophen JULIA Screen 12/18/20 12/19/20 12/19/20 21:40 01:26 05:49 WBC RBC Hgb Hct MCV RDW Plt Count Lymph % (Auto) [place] % (Auto) [place] # (Auto) Seg Neutrophils % Seg Neutrophils # PT INR APTT Sodium Potassium Chloride Carbon Dioxide BUN Creatinine Glucose POC Glucose 138 H 148 H 136 H Hemoglobin A1c Lactic Acid Calcium Total Bilirubin Direct Bilirubin AST ALT Alkaline Phosphatase CK-MB (CK-2) CK-MB (CK-2) Rel Index Troponin T Total Protein Albumin LDL Cholesterol Direct HDL Cholesterol TSH Free T4 Acetaminophen JULIA Screen 12/19/20 12/19/20 12/19/20 06:59 06:59 08:38 WBC 12.1 H RBC 2.76 L Hgb 8.5 L Hct 27.8 L MCV 101 H RDW 22.3 H Plt Count 82 L Lymph % (Auto) [place] % (Auto) [place] # (Auto) Seg Neutrophils % Seg Neutrophils # PT INR APTT Sodium 147 H Potassium Chloride Carbon Dioxide BUN 21 H Creatinine 3.9 H Glucose 144 H POC Glucose 139 H Hemoglobin A1c Lactic Acid Calcium Total Bilirubin 1.70 H Direct Bilirubin 1.2 H AST 871 H ALT 1552 H Alkaline Phosphatase 146 H CK-MB (CK-2) CK-MB (CK-2) Rel Index Troponin T Total Protein 5.6 L Albumin 2.7 L LDL Cholesterol Direct HDL Cholesterol TSH Free T4 Acetaminophen JULIA Screen 12/19/20 12/19/20 12/19/20 11:45 16:01 22:03 WBC RBC Hgb Hct MCV RDW Plt Count Lymph % (Auto) [place] % (Auto) [place] # (Auto) Seg Neutrophils % Seg Neutrophils # PT INR APTT Sodium Potassium Chloride Carbon Dioxide BUN Creatinine Glucose POC Glucose 138 H 141 H 121 H Hemoglobin A1c Lactic Acid Calcium Total Bilirubin Direct Bilirubin AST ALT Alkaline Phosphatase CK-MB (CK-2) CK-MB (CK-2) Rel Index Troponin T Total Protein Albumin LDL Cholesterol Direct HDL Cholesterol TSH Free T4 Acetaminophen JULIA Screen 12/20/20 12/20/20 12/20/20 03:18 05:46 05:48 WBC RBC Hgb Hct MCV RDW Plt Count Lymph % (Auto) [place] % (Auto) [place] # (Auto) Seg Neutrophils % Seg Neutrophils # PT INR APTT Sodium 146 H Potassium Chloride 109.6 H Carbon Dioxide 21 L BUN 32 H Creatinine 5.5 H Glucose 124 H POC Glucose 142 H 125 H Hemoglobin A1c Lactic Acid Calcium Total Bilirubin Direct Bilirubin AST ALT Alkaline Phosphatase CK-MB (CK-2) CK-MB (CK-2) Rel Index Troponin T Total Protein Albumin LDL Cholesterol Direct HDL Cholesterol TSH Free T4 Acetaminophen JULIA Screen 12/20/20 12/20/20 12/20/20 10:26 12:32 12:38 WBC RBC 2.64 L Hgb 8.1 L Hct 26.2 L MCV 99 H RDW 22.8 H Plt Count 82 L Lymph % (Auto) [place] % (Auto) [place] # (Auto) Seg Neutrophils % Seg Neutrophils # PT INR APTT Sodium Potassium Chloride Carbon Dioxide BUN Creatinine Glucose POC Glucose 139 H 136 H Hemoglobin A1c Lactic Acid Calcium Total Bilirubin Direct Bilirubin AST ALT Alkaline Phosphatase CK-MB (CK-2) CK-MB (CK-2) Rel Index Troponin T Total Protein Albumin LDL Cholesterol Direct HDL Cholesterol TSH Free T4 Acetaminophen JULIA Screen 12/20/20 12/20/20 12/20/20 16:05 20:00 23:23 WBC RBC Hgb Hct MCV RDW Plt Count Lymph % (Auto) [place] % (Auto) [place] # (Auto) Seg Neutrophils % Seg Neutrophils # PT INR APTT Sodium Potassium Chloride Carbon Dioxide BUN Creatinine Glucose POC Glucose 123 H 116 H 112 H Hemoglobin A1c Lactic Acid Calcium Total Bilirubin Direct Bilirubin AST ALT Alkaline Phosphatase CK-MB (CK-2) CK-MB (CK-2) Rel Index Troponin T Total Protein Albumin LDL Cholesterol Direct HDL Cholesterol TSH Free T4 Acetaminophen JULIA Screen 12/21/20 12/21/20 12/22/20 08:38 11:21 03:28 WBC RBC Hgb Hct MCV RDW Plt Count Lymph % (Auto) [place] % (Auto) [place] # (Auto) Seg Neutrophils % Seg Neutrophils # PT INR APTT Sodium Potassium Chloride Carbon Dioxide BUN Creatinine Glucose POC Glucose 127 H 117 H 125 H Hemoglobin A1c Lactic Acid Calcium Total Bilirubin Direct Bilirubin AST ALT Alkaline Phosphatase CK-MB (CK-2) CK-MB (CK-2) Rel Index Troponin T Total Protein Albumin LDL Cholesterol Direct HDL Cholesterol TSH Free T4 Acetaminophen JULIA Screen 12/22/20 12/22/20 12/22/20 05:06 05:06 07:42 WBC RBC 2.82 L Hgb 8.8 L Hct 28.6 L MCV 101 H RDW 23.8 H Plt Count 67 L Lymph % (Auto) [place] % (Auto) [place] # (Auto) Seg Neutrophils % Seg Neutrophils # PT INR APTT Sodium Potassium Chloride Carbon Dioxide BUN 30 H Creatinine 5.1 H Glucose 123 H POC Glucose 117 H Hemoglobin A1c Lactic Acid Calcium 8.3 L Total Bilirubin 2.70 H Direct Bilirubin AST 150 H ALT 644 H Alkaline Phosphatase 148 H CK-MB (CK-2) CK-MB (CK-2) Rel Index Troponin T Total Protein 5.6 L Albumin 2.3 L LDL Cholesterol Direct HDL Cholesterol TSH Free T4 Acetaminophen JULIA Screen 12/22/20 12/22/20 12/22/20 11:45 16:22 16:37 WBC RBC Hgb 9.4 L Hct MCV RDW Plt Count Lymph % (Auto) [place] % (Auto) [place] # (Auto) Seg Neutrophils % Seg Neutrophils # PT INR APTT Sodium Potassium Chloride Carbon Dioxide BUN Creatinine Glucose POC Glucose 113 H 115 H Hemoglobin A1c Lactic Acid Calcium Total Bilirubin Direct Bilirubin AST ALT Alkaline Phosphatase CK-MB (CK-2) CK-MB (CK-2) Rel Index Troponin T Total Protein Albumin LDL Cholesterol Direct HDL Cholesterol TSH Free T4 Acetaminophen JULIA Screen 12/22/20 12/22/20 12/23/20 19:52 23:35 04:17 WBC RBC Hgb Hct MCV RDW Plt Count Lymph % (Auto) [place] % (Auto) [place] # (Auto) Seg Neutrophils % Seg Neutrophils # PT INR APTT Sodium Potassium Chloride Carbon Dioxide BUN Creatinine Glucose POC Glucose 119 H 143 H 170 H Hemoglobin A1c Lactic Acid Calcium Total Bilirubin Direct Bilirubin AST ALT Alkaline Phosphatase CK-MB (CK-2) CK-MB (CK-2) Rel Index Troponin T Total Protein Albumin LDL Cholesterol Direct HDL Cholesterol TSH Free T4 Acetaminophen JULIA Screen 12/23/20 12/23/20 12/23/20 06:06 07:31 08:14 WBC RBC 3.03 L Hgb 8.8 L 9.6 L Hct 28.1 L MCV 100 H RDW 25.2 H Plt Count 54 L Lymph % (Auto) [place] % (Auto) [place] # (Auto) Seg Neutrophils % Seg Neutrophils # PT INR APTT Sodium Potassium Chloride Carbon Dioxide BUN Creatinine Glucose POC Glucose 174 H Hemoglobin A1c Lactic Acid Calcium Total Bilirubin Direct Bilirubin AST ALT Alkaline Phosphatase CK-MB (CK-2) CK-MB (CK-2) Rel Index Troponin T Total Protein Albumin LDL Cholesterol Direct HDL Cholesterol TSH Free T4 Acetaminophen JULIA Screen 12/23/20 12/23/20 12/23/20 14:56 16:49 23:44 WBC RBC Hgb 9.1 L Hct 29.6 L MCV RDW Plt Count Lymph % (Auto) [place] % (Auto) [place] # (Auto) Seg Neutrophils % Seg Neutrophils # PT INR APTT Sodium Potassium Chloride Carbon Dioxide BUN Creatinine Glucose POC Glucose 212 H 223 H Hemoglobin A1c Lactic Acid Calcium Total Bilirubin Direct Bilirubin AST ALT Alkaline Phosphatase CK-MB (CK-2) CK-MB (CK-2) Rel Index Troponin T Total Protein Albumin LDL Cholesterol Direct HDL Cholesterol TSH Free T4 Acetaminophen JULIA Screen 12/24/20 12/24/20 12/25/20 12:30 18:32 00:07 WBC RBC Hgb Hct MCV RDW Plt Count Lymph % (Auto) [place] % (Auto) [place] # (Auto) Seg Neutrophils % Seg Neutrophils # PT INR APTT Sodium Potassium Chloride Carbon Dioxide BUN Creatinine Glucose POC Glucose 297 H 309 H 190 H Hemoglobin A1c Lactic Acid Calcium Total Bilirubin Direct Bilirubin AST ALT Alkaline Phosphatase CK-MB (CK-2) CK-MB (CK-2) Rel Index Troponin T Total Protein Albumin LDL Cholesterol Direct HDL Cholesterol TSH Free T4 Acetaminophen JULIA Screen 12/25/20 07:02 WBC RBC Hgb Hct MCV RDW Plt Count Lymph % (Auto) [place] % (Auto) [place] # (Auto) Seg Neutrophils % Seg Neutrophils # PT INR APTT Sodium Potassium Chloride Carbon Dioxide BUN Creatinine Glucose POC Glucose 188 H Hemoglobin A1c Lactic Acid Calcium Total Bilirubin Direct Bilirubin AST ALT Alkaline Phosphatase CK-MB (CK-2) CK-MB (CK-2) Rel Index Troponin T Total Protein Albumin LDL Cholesterol Direct HDL Cholesterol TSH Free T4 Acetaminophen JULIA Screen
[2020-12-25] MEDS: LANSOPRAZOLE 30 MG SOLUTAB FEEDTUBE SCH (14:49)
[2020-12-25 15:38] LABS: Heparin-Induced Platelet Antib Negative (Negative); Unfractionated Heparin Negative (Negative)
--- NOTE | 2020-12-25 15:40 | Event Note ---
Date: 12/25/20 Consult noted and patient seen today. Wound evaluated and dressed. 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 Dr. Odom's consult noted after my evaluation. Agree with debridement but will defer to Dr. Odom as consult already completed on chart.
--- NOTE | 2020-12-25 15:44 | Progress Note ---
Assessment and Plan The patient is a 70 YO female with history significant for Hypertension, Anemia, Arthritis, CAD s/p CABG and ESRD on hemodialysis (MWF) who presented to [facility] ED 12/16 with altered mental status. Patient was recently seen here in this hospital about a week ago with hyperkalemia during which she had emergent dialysis. She has had a COVID-19 vaccination. Work-up in the emergency room showed wbc 18.2, INR of 2.8, K 5.4, BUN 34, creatinine 5.6, Lactic acid of 6.6, elevated liver enzymes with AST 2838 and ALT 1353 and Troponin 0.72. Chest x-ray showed reduced lung volumes with probable bilateral atelectasis/edema. CT scan of the head showed no acute findings. Patient has been admitted with altered mental status, hyperkalemia, lactic acidosis, elevated liver enzymes and elevated troponin. Assessment and plan: --Acute metabolic encephalopathy Possibly secondary to multiple underlying problems including possible sepsis, end-stage renal disease with hyperkalemia and elevated liver enzymes. Will monitor mental status. MRI brain without any acute infarct, neurology consulted and recommended to obtain EEG which is pending Patient remains pleasantly confused, continue supportive care and tube feeding --Suspected sepsis sepsis, POA No clear source of infection yet, completed Cefepime and Vancomycin ID following --Thrombocytopenia may be due to Sepsis. To r/o HIT Plaletets getting lower 67 today She did not get any Heparin this admission but got Heparin last admission just few days earlier Obtain HIT test Consult Hematology -- ESRD (end stage renal disease) Nephrology consulted for hemodialysis, follow BMP, avoid nephrotoxic agents --Hyperkalemia Possibly secondary to the end-stage renal disease. Patient treated with Kayexalate, insulin/glucose, sodium bicarb and will monitor potassium levels. --Elevated liver enzymes Etiology unclear, likely due to shock liver GI was consulted, liver serologies are negative Continue to trend and medical management --Elevated troponin/NSTEMI type II Possibly secondary to the underlying end-stage renal disease versus sepsis. However we trend cardiac enzymes and request cardiology evaluation and recommendations. --Diabetes mellitus type II Patient placed on sliding scale insulin. We will monitor Accu-Cheks closely. --DVT prophylaxis Current Visit: Yes Status: Acute Plan to address problem: Patient currently on anticoagulation with Eliquis. --Full code status Daily clinical course: 12/17/20 Patient with ESRD on hemodialysis presents with altered mental status, acute metabolic encephalopathy. Also has markedly elevated AST and ALT GI consulted. Her LFTs were normal last admission just 5 days ago. 12/18/20 Patient with ESRD on hemodialysis. Rapid response called this morning. She is very lethargic, minimal responsive. Bld glucose 45mg/dl and BP 74/15. She was given 1 amp D50. Blood glucose now 163. BP up to 123/30 but MAP still under 65. Will give 500 ml Normal Saline and transfer to [facility].I discussed with Dr. Chong, Nephrology. LFTs improving though still very high. 12/19/20 Patient with ESRD on hemodialysis. Rapid response called yesterday for hypoglycemia and hypotension, so transferred to [facility]. Blood glucose normalized. BP improved. 12/20/20 Patient with ESRD on hemodialysis. Presented with altered mental status. Was transferred to [facility] on 12/18/20. Still has altered mental status, very lethargic. MRI ordered. Neurology consulted. 12/21/20 Patient with ESRD on hemodialysis. Presented with altered mental status. Was transferred to [facility] on 12/18/20. Still has altered mental status, very lethargic. MRI ordered. EEG ordered. Patient ws evaluated by Neurology. Will talk to family. 12/22/20 Patient with ESRD on hemodialysis, diabetes,hypertension. She presented with altered mental status. She has been diagnosed with sepsis(POA), hypoglycemia, hypotension, thrombocytopenia. Was transferred to [facility] on 12/18/20 because of episode of hypoglycemia and hypotension. . Still has altered mental status, very lethargic. Neurology was consulted MRI ordered. EEG ordered. I s poke to daughter Michelle Kruger yesterday and gave update. For thrombocytopenia, will obtain HIT. Consult Hematology For blood in stool, will re-consult GI. Check H/H serially Elevated LFTs likely due to shock liver, improving 12/23/20 Patient with ESRD on hemodialysis, diabetes,hypertension. She p resented with altered mental status. She has been diagnosed with sepsis(POA), hypoglycemia, hypotension, thrombocytopenia. Was transferred to [facility] on 12/18/20 because of episode of hypoglycemia and hypotension. . Still has altered mental status, very lethargic. Neurology was consulted MRI ordered. EEG ordered. I spoke to daughter Michelle Kruger few days ago and gave update. Patient has thrombocytopenia, worsening 54 today. Consult Hematology. HIT ordered For blood in stool, will re-consult GI. Check H/H serially Elevated LFTs likely due to shock liver, improving. Was initially evaluated by GI patient stable to transfer back to [facility] since BP stable. 12/24/20; MRI brain yesterday showed extensive chronic changes but no acute infarct. Patient remains confused on TF. speech recommended pureed diet on prior assessment- will initiate. cont to follow 12/25/20: Ordered for Covid test, patient remains very lethargic, unable to tolerate p.o. we will continue on tube feeding. Continue supportive care Subjective Date of service: 12/25/20 Principal diagnosis: change in mentation,ESRD Interval history: Patient seen and examined. Medical records and medication list reviewed. No acute event overnight noted by the RN. Patient remains confused and lethargic Initiated on tube feeding, discussed plan of care with RN and case management Objective - Exam Narrative Exam: - General Apperance Constitutional: uncomfortable, other (moaning at time and lethargic) - EENT EENT: PERRL, mucous membranes moist - Respiratory Respiratory: chest non-tender, lungs clear, rales, rhonchi - Cardiovascular Cardiovascular: regular rate, normal S1, normal S2 Extremities: no peripheral edema bilat, no clubbing, cyanosis - Gastrointestinal Gastrointestinal: normoactive bowel sounds - Integumentary Integumentary: normal - Neurologic Cranial nerve examination: PERRL, EOMI, intact (left facial droop ) Detailed motor examination: Moves extremities - Constitutional Vitals: Vital Signs - 12hr 12/25/20 12/25/20 12/25/20 08:05 08:35 08:40 Temperature 97.4 F L 97.2 F L Pulse Rate 95 H 101 H 100 H Respiratory 18 129 H Rate Blood Pressure 113/26 121/21 126/31 O2 Sat by Pulse 96 Oximetry O2 Sat by Pulse 92 Oximetry [ Anterior Bilateral Throughout] O2 Sat by Pulse 92 Oximetry [ Bilateral Bases ] 12/25/20 12/25/20 12/25/20 08:45 09:00 09:15 Temperature Pulse Rate 99 H 98 H 98 H Respiratory Rate Blood Pressure 131/51 120/53 104/25 O2 Sat by Pulse Oximetry O2 Sat by Pulse Oximetry [ Anterior Bilateral Throughout] O2 Sat by Pulse Oximetry [ Bilateral Bases ] 12/25/20 12/25/20 12/25/20 09:30 09:45 10:00 Temperature Pulse Rate 93 H 60 100 H Respiratory Rate Blood Pressure 123/37 127/22 135/45 O2 Sat by Pulse 96 Oximetry O2 Sat by Pulse Oximetry [ Anterior Bilateral Throughout] O2 Sat by Pulse Oximetry [ Bilateral Bases ] 12/25/20 12/25/20 12/25/20 10:15 10:30 10:45 Temperature Pulse Rate 98 H 96 H 95 H Respiratory Rate Blood Pressure 133/22 122/29 127/28 O2 Sat by Pulse Oximetry O2 Sat by Pulse Oximetry [ Anterior Bilateral Throughout] O2 Sat by Pulse Oximetry [ Bilateral Bases ] 12/25/20 12/25/20 12/25/20 11:00 11:15 11:30 Temperature Pulse Rate 75 96 H 96 H Respiratory Rate Blood Pressure 119/28 125/87 131/20 O2 Sat by Pulse Oximetry O2 Sat by Pulse Oximetry [ Anterior Bilateral Throughout] O2 Sat by Pulse Oximetry [ Bilateral Bases ] 12/25/20 11:45 Temperature 98.4 F Pulse Rate 98 H Respiratory 18 Rate Blood Pressure 148/26 O2 Sat by Pulse Oximetry O2 Sat by Pulse 92 Oximetry [ Anterior Bilateral Throughout] O2 Sat by Pulse 92 Oximetry [ Bilateral Bases ] - Labs CBC & Chem 7: 12/26/20 07:51 12/25/20 15:30 Labs: Abnormal lab results 12/24/20 12/24/20 12/25/20 Range/Units 18:32 Unknown 00:07 POC Glucose 309 H 190 H (70-105) mg/dL Coronavirus (PCR) Positive A (Negative) 12/25/20 Range/Units 07:02 POC Glucose 188 H (70-105) mg/dL Coronavirus (PCR) (Negative) HEART Score - HEART Score Troponin: Troponin T 0.731 ng/mL (0.00-0.029) H* 12/16/20 05:48
[2020-12-25 16:14] LABS: Calcium 8.9 mg/dL (8.4-10.2)
[2020-12-26] MEDS: INSULIN REGULAR, HUMAN 100 UNITS/1 ML SUB-Q SCH ×3 (06:33→18:34)
[2020-12-26 08:39] LABS: Hematocrit 29.6 % (30.3-42.9); Hemoglobin 9.4 gm/dl (10.1-14.3); Mean Corpuscular HGB Conc 32 % (30-34); Mean Corpuscular Volume 102 fl (79-97); Red Blood Count 2.92 M/mm3 (3.65-5.03)
[2020-12-26 08:44] LABS: Platelet Count 58 K/mm3 (140-440); Red Cell Distribution Width 25.1 % (13.2-15.2)
[2020-12-26] MEDS: MIDODRINE 5 MG TAB PO SCH ×3 (08:54→15:56)
[2020-12-26] MEDS: LANSOPRAZOLE 30 MG SOLUTAB FEEDTUBE SCH (09:02)
--- NOTE | 2020-12-26 10:15 | Progress Note ---
Assessment and Plan 1. ESRD: Patient is on maintenance hemodialysis three times a week, MWF schedule. Meds dosage based on GFR. Hemodialysis: 12/16, 12/18, 12/20, 12/23, 12/25. 2. FEN: Hyperkalemia, improved. Anion-gap metabolic acidosis, improved. Monitor lytes and volume status. 3. Anemia, POA: 2/2 ESRD. Epogen with HD. 4. Acute metabolic encephalopathy, POA: CT head negative. Seen by Neuro. Monitor. 5. Sepsis, POA: S/p Abx. Bl culture negative. 6. Elevated Troponin: Followed by Cards. 7. Hypotension: On Midodrine. Monitor BP. 8. Elevated ALT / AST: Improving. 9. Thrombocytopenia: Monitor Subjective: Patient was seen and examined at the bedside. General Appearance: General appearance: well-developed, appears stated age, not in distress, NC O2, NG tube HEENT: ATNC, pupils equal Neck: trachea midline Respiratory: ctab Heart: regular, S1S2, no murmur Abdomen: soft, bowel sounds heard, not tender Integumentary: b/l leg dressing noted Neurologic: alert, not following any command, not conversing Ext: no edema Hemodialysis access: L IJ tunnel catheter Subjective Date of service: 12/26/20 Principal diagnosis: change in mentation,ESRD Objective - Vital Signs Vital signs: Vital Signs - 12hr 12/25/20 12/26/20 22:17 00:40 Temperature 97.8 F Pulse Rate 92 H Respiratory 20 Rate Blood Pressure 124/19 O2 Sat by Pulse 100 90 Oximetry - Lab 12/26/20 07:51 12/25/20 15:30 Most recent lab results Calcium 8.9 mg/dL (8.4-10.2) 12/25/20 15:30 Medications & Allergies - Medications Allergies/Adverse Reactions: Allergies No Known Allergies Allergy (Verified 12/11/20 17:11) Home Medications: Home Medications Medication Instructions Recorded Confirmed Last Taken Type Apixaban [Eliquis] 5 mg PO BID 12/16/20 12/16/20 Unknown History Aspirin [Adult Aspirin] 81 mg PO QDAY 12/16/20 12/16/20 Unknown History Escitalopram [Lexapro] 10 mg PO DAILY 12/16/20 12/16/20 Unknown History Gabapentin 300 mg PO QDAY 12/16/20 12/16/20 Unknown History Levemir Flextouch 6 units SUB-Q HS 12/16/20 12/22/20 Unknown History Midodrine [Proamatine] 15 mg PO TID 12/16/20 12/16/20 Unknown History NovoLOG Flexpen 6 units SUB-Q BID 12/16/20 12/22/20 Unknown History Pantoprazole [Protonix] 40 mg PO QDAY 12/16/20 12/16/20 Unknown History Vit B Comp No.3/Folic/C/Biotin 1 each PO DAILY 12/16/20 12/16/20 Unknown History [Nephro-Nola Rx Tablet] sevelamer HCL [Sevelamer HCl] 800 mg PO TID 12/16/20 12/16/20 Unknown History Active Medications: Generic Name Dose Route Start Last Admin Trade Name Freq PRN Reason Stop Dose Admin Lipase/Protease/Amylase 1 each 12/22/20 10:34 Lipase 10,500/Protease 25,000/Amylase 43,750 (Units) Dr Lazar FEEDTUBE PRN PRN For Clogged Feeding Tube Dextrose 0 ml 12/16/20 03:40 12/18/20 08:23 Dextrose 50% In Water (25gm) 50 Ml Syringe IV 50 ml Q30MIN PRN Administration Hypoglycemia Protocol Sodium Chloride 1,000 mls @ 75 mls/hr 12/16/20 03:45 12/17/20 22:24 Nacl 0.9% 1000 Ml IV 75 mls/hr DIRECT JEET Administration Sodium Chloride 100 mls @ 999 mls/hr 12/20/20 09:20 Nacl 0.9% IV ROSA M PRN Hypotension Insulin Human Regular 0 units 12/24/20 18:00 12/26/20 06:33 Insulin Regular, Human 100 Units/1 Ml SUB-Q 2 units Q6HR JEET Administration Protocol Lansoprazole 30 mg 12/25/20 10:00 12/26/20 09:02 Lansoprazole 30 Mg Solutab FEEDTUBE 30 mg QDAY JEET Administration Magnesium Hydroxide 30 ml 12/16/20 03:40 Magnesium Hydroxide (Mom) Oral Liqd Udc PO Q4H PRN Constipation Midodrine 5 mg 12/16/20 12:00 12/26/20 08:54 Midodrine 5 Mg Tab PO 5 mg TID@0800,1200,1600 JEET Administration Morphine Sulfate 0.5 mg 12/18/20 13:00 Morphine 2 Mg/1 Ml Inj IV Q6H PRN Pain, Moderate (4-6) Ondansetron HCl 4 mg 12/16/20 03:40 Ondansetron 4 Mg/2 Ml Inj IV Q8H PRN Nausea And Vomiting Simple Syrup 15 ml 12/22/20 08:19 Simple Syrup 15 Ml FEEDTUBE PRN PRN Hypoglycemia Simple Syrup 30 ml 12/22/20 08:19 Simple Syrup 15 Ml FEEDTUBE PRN PRN Hypoglycemia Sodium Bicarbonate 325 mg 12/22/20 10:34 Sodium Bicarbonate 325 Mg Tab FEEDTUBE PRN PRN For Clogged Feeding Tube Sodium Chloride 10 ml 12/16/20 10:00 12/26/20 09:02 Sodium Chloride 0.9% 10 Ml Flush Syringe IV Not Given BID JEET Sodium Chloride 10 ml 12/16/20 03:40 Sodium Chloride 0.9% 10 Ml Flush Syringe IV PRN PRN LINE FLUSH
--- NOTE | 2020-12-26 10:28 | Progress Note ---
Assessment and Plan - Patient Problems (1) Elevated troponin Current Visit: Yes Status: Acute Plan to address problem: Troponin elevation, nonspecific finding in the setting of end-stage renal failure. An echocardiogram shows a four-chamber dilated cardiomyopathy, left ventricular ejection fraction 30 to 35%. There is mild to moderate mitral stenosis, moderate to severe mitral regurgitation, moderate to severe tricuspid regurgitation and severe pulmonary hypertension. Conservative medical therapy as tolerated for cardiomyopathy and valvular heart disease. Subjective Date of service: 12/26/20 Principal diagnosis: change in mentation,ESRD Interval history: Patient was transferred to the 3rd floor for findings of positive PCR serology No interval cardiac changes. Objective Vital Signs Temp Pulse Resp BP Pulse Ox Pulse Ox Pulse Ox 12/26/20 00:40 97.8 F 92 H 20 124/19 90 12/25/20 22:17 100 12/25/20 22:00 96 12/25/20 16:11 98.0 F 97 H 18 133/35 100 12/25/20 11:45 98.4 F 98 H 18 148/26 92 92 12/25/20 11:30 96 H 131/20 12/25/20 11:15 96 H 125/87 12/25/20 11:00 75 119/28 12/25/20 10:45 95 H 127/28 12/25/20 10:30 96 H 122/29 - Physical Examination Narrative exam: Deferred due to isolation protocol. General: No Apparent Distress Cardiac: Positive: Reg Rate and Rhythm Extremities: Absent: edema - Labs and Meds CBC 12/26/20 Range/Units 07:51 WBC 8.1 (4.5-11.0) K/mm3 RBC 2.92 L (3.65-5.03) M/mm3 Hgb 9.4 L (10.1-14.3) gm/dl Hct 29.6 L (30.3-42.9) % Plt Count 58 L (140-440) K/mm3 Comprehensive Metabolic Panel 12/25/20 Range/Units 15:30 Sodium 137 (137-145) mmol/L Potassium 4.4 (3.6-5.0) mmol/L Chloride 100.1 (98-107) mmol/L Carbon Dioxide 26 (22-30) mmol/L BUN 24 H (7-17) mg/dL Creatinine 3.2 H (0.6-1.2) mg/dL Glucose 227 H (65-100) mg/dL Calcium 8.9 (8.4-10.2) mg/dL
[2020-12-26] MEDS ORDERED: CHOLECALCIFEROL (VIT D3) 400 UNIT TAB PO SCH (15:00)
--- NOTE | 2020-12-26 15:34 | Progress Note ---
Assessment and Plan The patient is a 70 YO female with history significant for Hypertension, Anemia, Arthritis, CAD s/p CABG and ESRD on hemodialysis (MWF) who presented to [facility] ED 12/16 with altered mental status. Patient was recently seen here in this hospital about a week ago with hyperkalemia during which she had emergent dialysis. She has had a COVID-19 vaccination. Work-up in the emergency room showed wbc 18.2, INR of 2.8, K 5.4, BUN 34, creatinine 5.6, Lactic acid of 6.6, elevated liver enzymes with AST 2838 and ALT 1353 and Troponin 0.72. Chest x-ray showed reduced lung volumes with probable bilateral atelectasis/edema. CT scan of the head showed no acute findings. Patient has been admitted with altered mental status, hyperkalemia, lactic acidosis, elevated liver enzymes and elevated troponin. Now she is tested positive for COVID-19: 12/25 Assessment and plan: --Positive COVID-19 infection -Patient tested positive for COVID-19 virus on 12/25 -Order chest x-ray -Initiated on dexamethasone -Consult ID and follow recommendation -Droplet/contact isolation -Continue SPO2 monitoring -Supplemental oxygen as needed -Pulmonary hygiene -Prone to sleep -Vitamin C, vitamin D, zinc -Anticoagulation per protocol --Acute metabolic encephalopathy Possibly secondary to multiple underlying problems including possible sepsis, end-stage renal disease with hyperkalemia and elevated liver enzymes. Will monitor mental status. MRI brain without any acute infarct, neurology consulted and recommended to obtain EEG which is pending Patient remains pleasantly confused, continue supportive care and tube feeding --Suspected sepsis sepsis, POA No clear source of infection yet, completed Cefepime and Vancomycin ID following --Thrombocytopenia may be due to Sepsis. To r/o HIT She did not get any Heparin this admission but got Heparin last admission just few days earlier Obtain HIT test Consulted Hematology, discontinued all heparin and anticoagulation -- ESRD (end stage renal disease) Nephrology consulted for hemodialysis, follow BMP, avoid nephrotoxic agents --Hyperkalemia Possibly secondary to the end-stage renal disease. Patient treated with Kayexalate, insulin/glucose, sodium bicarb and will monitor potassium levels. --Elevated liver enzymes Etiology unclear, likely due to shock liver GI was consulted, liver serologies are negative Continue to trend and medical management --Elevated troponin/NSTEMI type II Possibly secondary to the underlying end-stage renal disease versus dilated cardiomyopathy versus sepsis. However we trend cardiac enzymes and request cardiology evaluation and recommendations. 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 We will monitor Accu-Cheks closely. --Bilateral lower extremity pressure sore ulcer Dr. Odom consulted and plan for debridement --DVT prophylaxis SCD for possible HIT, Eliquis is discontinued by hematology --Full code status Daily clinical course: 12/17/20 Patient with ESRD on hemodialysis presents with altered mental status, acute metabolic encephalopathy. Also has markedly elevated AST and ALT GI consulted. Her LFTs were normal last admission just 5 days ago. 12/18/20 Patient with ESRD on hemodialysis. Rapid response called this morning. She is very lethargic, minimal responsive. Bld glucose 45mg/dl and BP 74/15. She was given 1 amp D50. Blood glucose now 163. BP up to 123/30 but MAP still under 65. Will give 500 ml Normal Saline and transfer to [facility].I discussed with Dr. Chong, Nephrology. LFTs improving though still very high. 12/19/20 Patient with ESRD on hemodialysis. Rapid response called yesterday for hypoglycemia and hypotension, so transferred to [facility]. Blood glucose normalized. BP improved. 12/20/20 Patient with ESRD on hemodialysis. Presented with altered mental status. Was transferred to [facility] on 12/18/20. Still has altered mental status, very lethargic. MRI ordered. Neurology consulted. 12/21/20 Patient with ESRD on hemodialysis. Presented with altered mental status. Was transferred to [facility] on 12/18/20. Still has altered mental status, very lethargic. MRI ordered. EEG ordered. Patient ws evaluated by Neurology. Will talk to family. 12/22/20 Patient with ESRD on hemodialysis, diabetes,hypertension. She presented with altered mental status. She has been diagnosed with sepsis(POA), hypoglycemia, hypotension, thrombocytopenia. Was transferred to [facility] on 12/18/20 because of episode of hypoglycemia and hypotension. . Still has altered mental status, very lethargic. Neurology was consulted MRI ordered. EEG ordered. I spoke to daughter Michelle Kruger yesterday and gave update. For thrombocytopenia, will obtain HIT. Consult Hematology For blood in stool, will re-consult GI. Check H/H serially Elevated LFTs likely due to shock liver, improving 12/23/20 Patient with ESRD on hemodialysis, diabetes,hypertension. She presented with altered mental status. She has been diagnosed with sepsis(POA), hypoglycemia, hypotension, thrombocytopenia. Was transferred to [facility] on 12/18/20 because of episode of hypoglycemia and hypotension. . Still has altered mental status, very lethargic. Neurology was consulted MRI ordered. EEG ordered. I spoke to daughter Michelle Kruger few days ago and gave update. Patient has thrombocytopenia, worsening 54 today. Consult Hematology. HIT ordered For blood in stool, will re-consult GI. Check H/H serially Elevated LFTs likely due to shock liver, improving. Was initially evaluated by GI patient stable to transfer back to [facility] since BP stable. 12/24/20; MRI brain yesterday showed extensive chronic changes but no acute infarct. Patient remains confused on TF. speech recommended pureed diet on prior assessment- will initiate. cont to follow 12/25/20: Ordered for Covid test, patient remains very lethargic, unable to tolerate p.o. we will continue on tube feeding. Continue supportive care. Evaluated by Dr. Odom at the bedside for bilateral lower extremity wound. Plan for debridement, continue to follow 12/26/20: Patient tested positive for COVID-19. Transfer to [facility]/Covid unit. Will place on Covid protocol, ID consult, obtain chest x-ray, initiate on dexamethasone. Patient daughter was notified about patient's positive Covid status. Continue to monitor clinically, patient remains confused. Subjective Date of service: 12/26/20 Principal diagnosis: change in mentation,ESRD Interval history: Patient seen and examined. Medical records and medication list reviewed. No acute event overnight noted by the RN. Patient remains confused and lethargic On tube feeding, discussed plan of care with RN and case management Patient moved to Covid floor as her Covid test is positive Objective - Exam Narrative Exam: - General Apperance Constitutional: uncomfortable, other (moaning at time and lethargic) - EENT EENT: PERRL, mucous membranes moist - Respiratory Respiratory: chest non-tender, lungs clear, rales, rhonchi - Cardiovascular Cardiovascular: regular rate, normal S1, normal S2 Extremities: no peripheral edema bilat, no clubbing, cyanosis - Gastrointestinal Gastrointestinal: normoactive bowel sounds - Integumentary Integumentary: normal - Neurologic Cranial nerve examination: PERRL, EOMI, intact (left facial droop ) Detailed motor examination: Moves extremities - Constitutional Vitals: Vital Signs - 12hr 12/26/20 12/26/20 12/26/20 10:00 11:28 11:32 Temperature 99.4 F 97.7 F Pulse Rate 94 H Pulse Rate [ 97 H Apical] Respiratory 24 22 Rate Blood Pressure 120/26 136/99 O2 Sat by Pulse 92 99 Oximetry - Labs CBC & Chem 7: 12/28/20 05:48 12/28/20 05:48 Labs: Abnormal lab results 12/25/20 12/25/20 12/25/20 Range/Units 15:30 16:20 22:19 RBC (3.65-5.03) M/mm3 Hgb (10.1-14.3) gm/dl Hct (30.3-42.9) % MCV (79-97) fl RDW (13.2-15.2) % Plt Count (140-440) K/mm3 BUN 24 H (7-17) mg/dL Creatinine 3.2 H (0.6-1.2) mg/dL Glucose 227 H (65-100) mg/dL POC Glucose 227 H 266 H (70-105) mg/dL 12/26/20 12/26/20 12/26/20 Range/Units 06:24 07:51 12:40 RBC 2.92 L (3.65-5.03) M/mm3 Hgb 9.4 L (10.1-14.3) gm/dl Hct 29.6 L (30.3-42.9) % MCV 102 H (79-97) fl RDW 25.1 H (13.2-15.2) % Plt Count 58 L (140-440) K/mm3 BUN (7-17) mg/dL Creatinine (0.6-1.2) mg/dL Glucose (65-100) mg/dL POC Glucose 224 H 155 H (70-105) mg/dL HEART Score - HEART Score Troponin: Troponin T 0.731 ng/mL (0.00-0.029) H* 12/16/20 05:48
--- NOTE | 2020-12-26 15:40 | Progress Note ---
Assessment and Plan Cultures: 12/16/2020 blood culture: No growth A/P: 70-year-old female with diabetes, hypertension, ESRD admitted to the hospital on 12/16/2020 due to altered mental status: #COVID: No acute change, respiratory status has improved since admission. ?False positive. #Bilateral lower extremity wounds, ?some wounds may be calciphylaxis: Wound care, dialysis compliance. b/l arterial dopplers of LE with diffuse disease, no focal stenosis. #ESRD on HD: Renally dose antibiotics. #Acute encephalopathy: CT head with atrophy, severe generalized atherosclerosis, no acute intracranial abnormality #Elevated LFTs: Downtrending. Abdominal ultrasound showed contracted gallbladder, no other acute abnormality. Hepatitis panel negative. #Thrombocytopenia Recs: -CCheck CXR -No acute treatment for COVID required. -If she decompensates would give dexamethasone. -Not a remdesivir candidate. -Wound care, offloading as possible [facility] Subjective Date of service: 12/26/20 Principal diagnosis: change in mentation,ESRD Interval history: Reconsulted due to positive Covid test. Patient remains afebrile with a normal white count. Currently on 2L NC after being admitted on Venturi mask Objective - Exam Narrative Exam: Physical exam deferred to reduce risk of transmission of COVID-19. Please refer to primary team's note. - Constitutional Vitals: Vital Signs Temp Pulse Resp BP Pulse Ox 97.7 F 94 H 22 136/99 99 12/26/20 11:32 12/26/20 11:32 12/26/20 11:32 12/26/20 11:32 12/26/20 11:32 Temperature -Last 24 Hours Temperature 97.7 F Temperature 99.4 F Temperature 97.8 F Temperature 98.0 F - Labs CBC & Chem 7: 12/26/20 07:51 12/25/20 15:30 Labs: Abnormal lab results 12/25/20 12/25/20 12/25/20 Range/Units 15:30 16:20 22:19 RBC (3.65-5.03) M/mm3 Hgb (10.1-14.3) gm/dl Hct (30.3-42.9) % MCV (79-97) fl RDW (13.2-15.2) % Plt Count (140-440) K/mm3 BUN 24 H (7-17) mg/dL Creatinine 3.2 H (0.6-1.2) mg/dL Glucose 227 H (65-100) mg/dL POC Glucose 227 H 266 H (70-105) mg/dL 12/26/20 12/26/20 12/26/20 Range/Units 06:24 07:51 12:40 RBC 2.92 L (3.65-5.03) M/mm3 Hgb 9.4 L (10.1-14.3) gm/dl Hct 29.6 L (30.3-42.9) % MCV 102 H (79-97) fl RDW 25.1 H (13.2-15.2) % Plt Count 58 L (140-440) K/mm3 BUN (7-17) mg/dL Creatinine (0.6-1.2) mg/dL Glucose (65-100) mg/dL POC Glucose 224 H 155 H (70-105) mg/dL
[2020-12-26] MEDS: DEXAMETHASONE 4 MG TAB PO SCH (15:56)
[2020-12-26] MEDS: CHOLECALCIFEROL (VIT D3) 5,000 UNIT TAB PO SCH (15:56)
--- NOTE | 2020-12-26 18:59 | Progress Note ---
Assessment and Plan - Patient Problems (1) Pressure ulcer of both heels, unstageable Current Visit: Yes Status: Acute Plan to address problem: 1) Check INR 2) Awaiting Vascular Surgery consult 3) Will plan on debriding BLE tomorrow if INR is okay and not contraindicated by Vascular Surgery. Subjective Date of service: 12/26/20 Patient Reports: Positive: no new complaints Objective Vital Signs - 12hr 12/26/20 12/26/20 12/26/20 10:00 11:28 11:32 Temperature 99.4 F 97.7 F Pulse Rate 94 H Pulse Rate [ 97 H Apical] Respiratory 24 22 Rate Blood Pressure 120/26 136/99 O2 Sat by Pulse 92 99 Oximetry - Labs 12/26/20 07:51 12/25/20 15:30 - Imaging Additional Studies: Arterial dopplers of 12/20/20 reviewed. Vascular Surgery has been consulted. Discussed with Dr. Almodovar.
[2020-12-26 20:44] LABS: C-Reactive Protein 9.3 mg/dL (0.00-1.30)
[2020-12-26] MEDS ORDERED: SODIUM POLYSTYRENE 15 GM/60 ML ORAL LIQD PO ONE (23:13)
[2020-12-26] MEDS: ASCORBIC ACID 500 MG TAB PO SCH (23:59)
[2020-12-26] MEDS: METOPROLOL TARTRATE 50 MG TAB PO SCH (23:59)
[2020-12-27] MEDS: INSULIN REGULAR, HUMAN 100 UNITS/1 ML SUB-Q SCH ×5 (00:16→23:48)
[2020-12-27] MEDS: MIDODRINE 5 MG TAB PO SCH ×3 (08:07→17:02)
--- NOTE | 2020-12-27 08:54 | Progress Note ---
Assessment and Plan 1. ESRD: Patient is on maintenance hemodialysis three times a week, MWF schedule. Meds dosage based on GFR. Hemodialysis: 12/16, 12/18, 12/20, 12/23, 12/25. 2. FEN: Hyperkalemia, improved. Anion-gap metabolic acidosis, improved. Monitor lytes and volume status. 3. Anemia, POA: 2/2 ESRD. Epogen with HD. 4. Acute metabolic encephalopathy, POA: CT head negative. Seen by Neuro. Monitor. 5. Sepsis, POA: S/p Abx. Bl culture negative. 6. Elevated Troponin: Followed by Cards. 7. Hypotension: On Midodrine. Monitor BP. 8. Elevated ALT / AST: Improving. 9. Thrombocytopenia: Monitor Subjective: Patient was seen and examined at the bedside. General Appearance: General appearance: well-developed, appears stated age, not in distress, NC O2, NG tube HEENT: ATNC, pupils equal Neck: trachea midline Respiratory: ctab Heart: regular, S1S2, no murmur Abdomen: soft, bowel sounds heard, not tender Integumentary: b/l leg dressing noted Neurologic: lethargic, not following any command, not conversing Ext: no edema Hemodialysis access: L IJ tunnel catheter Subjective Date of service: 12/27/20 Principal diagnosis: change in mentation,ESRD Objective - Vital Signs Vital signs: Vital Signs - 12hr 12/26/20 12/26/20 12/27/20 21:30 22:00 04:49 Temperature 98.7 F 97.9 F Pulse Rate 96 H 93 H 86 Pulse Rate [ 99 H From Monitor] Respiratory 18 22 18 Rate Blood Pressure 144/52 122/43 O2 Sat by Pulse 93 99 90 Oximetry - Lab 12/26/20 07:51 12/26/20 19:48 Most recent lab results Calcium 8.9 mg/dL (8.4-10.2) 12/25/20 15:30 Magnesium 2.00 mg/dL (1.7-2.3) 12/26/20 19:48 Magnesium 2.00 mg/dL (1.7-2.3) 12/26/20 19:48 Medications & Allergies - Medications Allergies/Adverse Reactions: Allergies No Known Allergies Allergy (Verified 12/11/20 17:11) Home Medications: Home Medications Medication Instructions Recorded Confirmed Last Taken Type Apixaban [Eliquis] 5 mg PO BID 12/16/20 12/16/20 Unknown History Aspirin [Adult Aspirin] 81 mg PO QDAY 12/16/20 12/16/20 Unknown History Escitalopram [Lexapro] 10 mg PO DAILY 12/16/20 12/16/20 Unknown History Gabapentin 300 mg PO QDAY 12/16/20 12/16/20 Unknown History Levemir Flextouch 6 units SUB-Q HS 12/16/20 12/22/20 Unknown History Midodrine [Proamatine] 15 mg PO TID 12/16/20 12/16/20 Unknown History NovoLOG Flexpen 6 units SUB-Q BID 12/16/20 12/22/20 Unknown History Pantoprazole [Protonix] 40 mg PO QDAY 12/16/20 12/16/20 Unknown History Vit B Comp No.3/Folic/C/Biotin 1 each PO DAILY 12/16/20 12/16/20 Unknown History [Nephro-Nola Rx Tablet] sevelamer HCL [Sevelamer HCl] 800 mg PO TID 12/16/20 12/16/20 Unknown History Active Medications: Generic Name Dose Route Start Last Admin Trade Name Freq PRN Reason Stop Dose Admin Lipase/Protease/Amylase 1 each 12/22/20 10:34 Lipase 10,500/Protease 25,000/Amylase 43,750 (Units) Dr Nagi MCKENZIE PRN PRN For Clogged Feeding Tube Ascorbic Acid 1,000 mg 12/26/20 22:00 12/26/20 23:59 Ascorbic Acid 500 Mg Tab PO 1,000 mg BID JEET Administration Cholecalciferol 5,000 unit 12/26/20 15:00 12/26/20 15:56 Cholecalciferol (Vit D3) 5,000 Unit Tab PO 5,000 unit DAILY JEET Administration Dexamethasone 6 mg 12/26/20 15:00 12/26/20 15:56 Dexamethasone 4 Mg Tab PO 6 mg Q24HR JEET Administration Dextrose 0 ml 12/16/20 03:40 12/18/20 08:23 Dextrose 50% In Water (25gm) 50 Ml Syringe IV 50 ml Q30MIN PRN Administration Hypoglycemia Protocol Sodium Chloride 1,000 mls @ 75 mls/hr 12/16/20 03:45 12/17/20 22:24 Nacl 0.9% 1000 Ml IV 75 mls/hr DIRECT JEET Administration Sodium Chloride 100 mls @ 999 mls/hr 12/20/20 09:20 Nacl 0.9% IV ROSA M PRN Hypotension Insulin Human Regular 0 units 12/24/20 18:00 12/27/20 06:20 Insulin Regular, Human 100 Units/1 Ml SUB-Q 2 units Q6HR JEET Administration Protocol Lansoprazole 30 mg 12/25/20 10:00 12/26/20 09:02 Lansoprazole 30 Mg Solutab FEEDTUBE 30 mg QDAY JEET Administration Magnesium Hydroxide 30 ml 12/16/20 03:40 Magnesium Hydroxide (Mom) Oral Liqd Udc PO Q4H PRN Constipation Metoprolol Tartrate 50 mg 12/26/20 22:00 12/26/20 23:59 Metoprolol Tartrate 50 Mg Tab PO 50 mg BID JEET Administration Midodrine 5 mg 12/16/20 12:00 12/27/20 08:07 Midodrine 5 Mg Tab PO 5 mg TID@0800,1200,1600 JEET Administration Morphine Sulfate 0.5 mg 12/18/20 13:00 Morphine 2 Mg/1 Ml Inj IV Q6H PRN Pain, Moderate (4-6) Ondansetron HCl 4 mg 12/16/20 03:40 Ondansetron 4 Mg/2 Ml Inj IV Q8H PRN Nausea And Vomiting Simple Syrup 15 ml 12/22/20 08:19 Simple Syrup 15 Ml FEEDTUBE PRN PRN Hypoglycemia Simple Syrup 30 ml 12/22/20 08:19 Simple Syrup 15 Ml FEEDTUBE PRN PRN Hypoglycemia Sodium Bicarbonate 325 mg 12/22/20 10:34 Sodium Bicarbonate 325 Mg Tab FEEDTUBE PRN PRN For Clogged Feeding Tube Sodium Chloride 10 ml 12/16/20 10:00 12/27/20 00:00 Sodium Chloride 0.9% 10 Ml Flush Syringe IV 10 ml BID JEET Administration Sodium Chloride 10 ml 12/16/20 03:40 Sodium Chloride 0.9% 10 Ml Flush Syringe IV PRN PRN LINE FLUSH
--- NOTE | 2020-12-27 08:56 | Progress Note ---
Assessment and Plan - Patient Problems (1) Elevated troponin Current Visit: Yes Status: Acute Plan to address problem: Troponin elevation, nonspecific finding in the setting of end-stage renal failure. An echocardiogram shows a four-chamber dilated cardiomyopathy, left ventricular ejection fraction 30 to 35%. There is mild to moderate mitral stenosis, moderate to severe mitral regurgitation, moderate to severe tricuspid regurgitation and severe pulmonary hypertension. Conservative medical therapy as tolerated for cardiomyopathy and valvular heart disease. Subjective Date of service: 12/27/20 Principal diagnosis: change in mentation,ESRD Interval history: Patient is resting in bed and appears comfortable. Objective Vital Signs Temp Pulse Pulse Pulse Resp BP Pulse Ox 12/27/20 04:49 97.9 F 86 18 122/43 90 12/26/20 22:00 93 H 99 H 22 99 12/26/20 21:30 98.7 F 96 H 18 144/52 93 12/26/20 11:32 97.7 F 94 H 22 136/99 99 12/26/20 11:28 99.4 F 24 120/26 12/26/20 10:00 97 H 92 - Physical Examination Narrative exam: Deferred due to isolation protocol. General: No Apparent Distress Extremities: Absent: edema - Labs and Meds Cardiac Enzymes 12/26/20 Range/Units 19:48 Lactate Dehydrogenase 581 H (91-180) units/L Comprehensive Metabolic Panel 12/26/20 Range/Units 19:48 Potassium 5.3 H D (3.6-5.0) mmol/L
[2020-12-27] MEDS: ASCORBIC ACID 500 MG TAB PO SCH ×2 (10:56→22:19)
[2020-12-27] MEDS: LANSOPRAZOLE 30 MG SOLUTAB FEEDTUBE SCH (10:56)
[2020-12-27] MEDS: CHOLECALCIFEROL (VIT D3) 5,000 UNIT TAB PO SCH (10:56)
[2020-12-27] MEDS: METOPROLOL TARTRATE 50 MG TAB PO SCH ×2 (10:57→22:19)
[2020-12-27] MEDS: DEXAMETHASONE 4 MG TAB PO SCH (10:57)
[2020-12-27] MEDS ORDERED: LIDOCAINE (4%) 40 MG/ML TOPICAL SOLN 50 ML BOTTLE TP STA (12:56)
--- NOTE | 2020-12-27 13:01 | Electrocardiograph Report ---
[facility] Test Date: 2020-12-26 Test Time: 21:35:55 Pat Name: MARII MARQUEZ Department: Room: A364 1 Gender: F Medical Detailist: BULMARO : 1950 Requested By: TOMMIE ESCOBEDO Order Number: [id number] Reading MD: Velvet Donaldson Measurements Intervals [place] Rate: 98 P: 63 OK: 129 QRS: -60 QRSD: 112 T: 123 QT: 393 QTc: 502 Interpretive Statements Sinus rhythm Left axis deviation Left anterior fascicular block Anterior infarct, old Prolonged QT interval Compared to ECG 12/16/2020 01:22:08 No significant change Electronically Signed On 12-27-2020 13:01:37 EDT by Velvet Donaldson
--- NOTE | 2020-12-27 14:03 | Event Note ---
Date: 12/27/20 Evaluated the patient and reviewed the arterial duplex. Patient is nonverbal, besides some grunting. By report she is nonambulatory. She has multiple wounds/Ulcerations to bilateral feet/legs including heel ulcers. She had heavily calcified femoral arteries, by palpation, with barely 1+ femoral pulses. She has nonpalpable pedal pulses. Her arterial duplex demonstrates monophasic waveforms throughout bilateral lower extremities, suggesting aortoiliac occlusive disease. She is unlikely to heal her wounds without an angiogram and improvement of her arterial flow in bilateral lower extremities.
--- NOTE | 2020-12-27 14:09 | Procedure Note ---
Date of procedure: 12/27/20 Pre-op diagnosis: 1) Bilateral unstageable heel ulcers 2) Bilateral medial leg ulcers Post-op diagnosis: same (Bilateral heel ulcers are stage 4) Procedure: Debridement of bilateral heel and bilateral leg ulcers Description of procedure: Pt was supine on her bed. All wounds were first anesthetized with 4% topical Lidocaine. Pt was positioned to maximally expose her wounds. Surgical, excisional debridement of necrotic skin, SQ tissue and fascia and tendon was then performed of the bilateral heel ulcers. The debridement was carried down to the level of bone. Surgical, excisional debridement of necrotic skin and SQ tissue was performed of the bilateral leg ulcers. Debridement was performed with a curette. Bleeding was minimal and was controlled with pressure. Pt tolerated the procedure well. Wounds were dressed by her nurse. BLE MRI without contrast was ordered to look for evidence of osteomyelitis. Post debridement measurements: 1) Left heel - 5 X 6 X 0.5 cm 2) Right heel - 3.2 X 3.3 X 0.5 cm 3) Left leg - 6 X 3 X 0.5 cm 4) Right leg - 6 X 6 X 0.5 cm Anesthesia: local (4% topical Lidocaine) Surgeon: JONATHAN GORMAN Estimated blood loss: minimal Pathology: none Specimen disposition: discarded Condition: stable Disposition: no change
--- NOTE | 2020-12-27 14:28 | Progress Note ---
Assessment and Plan The patient is a 70 YO female with history significant for Hypertension, Anemia, Arthritis, CAD s/p CABG and ESRD on hemodialysis (MWF) who presented to [facility] ED 12/16 with altered mental status. Patient was recently seen here in this hospital about a week ago with hyperkalemia during which she had emergent dialysis. She has had a COVID-19 vaccination. Work-up in the emergency room showed wbc 18.2, INR of 2.8, K 5.4, BUN 34, creatinine 5.6, Lactic acid of 6.6, elevated liver enzymes with AST 2838 and ALT 1353 and Troponin 0.72. Chest x-ray showed reduced lung volumes with probable bilateral atelectasis/edema. CT scan of the head showed no acute findings. Patient has been admitted with altered mental status, hyperkalemia, lactic acidosis, elevated liver enzymes and elevated troponin. Now she is tested positive for COVID-19: 12/25 Assessment and plan: --Positive COVID-19 infection -Patient tested positive for COVID-19 virus on 12/25 -Initiated on dexamethasone -Consult ID and follow recommendation -Droplet/contact isolation -Continue SPO2 monitoring -Supplemental oxygen as needed -Pulmonary hygiene -Prone to sleep -Vitamin C, vitamin D, zinc -Anticoagulation per protocol --Acute metabolic encephalopathy Possibly secondary to multiple underlying problems including possible sepsis, end-stage renal disease with hyperkalemia and elevated liver enzymes. Will monitor mental status. MRI brain without any acute infarct, neurology consulted and recommended to obtain EEG which is pending Patient remains pleasantly confused, continue supportive care and tube feeding --Suspected sepsis sepsis, POA No clear source of infection yet, completed Cefepime and Vancomycin ID following --Thrombocytopenia may be due to Sepsis. To r/o HIT She did not get any Heparin this admission but got Heparin last admission just few days earlier Obtain HIT test Consulted Hematology, discontinued all heparin and anticoagulation -- ESRD (end stage renal disease) Nephrology consulted for hemodialysis, follow BMP, avoid nephrotoxic agents --Hyperkalemia Possibly secondary to the end-stage renal disease. Patient treated with Kayexalate, insulin/glucose, sodium bicarb and will monitor potassium levels. --Elevated liver enzymes Etiology unclear, likely due to shock liver GI was consulted, liver serologies are negative Continue to trend and medical management --Elevated troponin/NSTEMI type II Possibly secondary to the underlying end-stage renal disease versus dilated cardiomyopathy versus sepsis. However we trend cardiac enzymes and request cardiology evaluation and recommendations. 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 We will monitor Accu-Cheks closely. --Bilateral lower extremity pressure sore ulcer, unstageable Dr. Odom consulted and status post debridement today Ordered MRI of lower extremities --Elevated JULIA Antidouble-stranded DNA marker is normal Likely patient has underlying auto inflammatory disease Need further outpatient, continue to follow clinically for now --DVT prophylaxis SCD for possible HIT, Eliquis is discontinued by hematology --Full code status Daily clinical course: 12/17/20 Patient with ESRD on hemodialysis presents with altered mental status, acute metabolic encephalopathy. Also has markedly elevated AST and ALT GI consulted. Her LFTs were normal last admission just 5 days ago. 12/18/20 Patient with ESRD on hemodialysis. Rapid response called this morning. She is very lethargic, minimal responsive. Bld glucose 45mg/dl and BP 74/15. She was given 1 amp D50. Blood glucose now 163. BP up to 123/30 but MAP still under 65. Will give 500 ml Normal Saline and transfer to [facility].I discussed with Dr. Chong, Nephrology. LFTs improving though still very high. 12/19/20 Patient with ESRD on hemodialysis. Rapid response called yesterday for hypoglycemia and hypotension, so transferred to [facility]. Blood glucose normalized. BP improved. 12/20/20 Patient with ESRD on hemodialysis. Presented with altered mental status. Was transferred to [facility] on 12/18/20. Still has altered mental status, very lethargic. MRI ordered. Neurology consulted. 12/21/20 Patient with ESRD on hemodialysis. Presented with altered mental status. Was transferred to [facility] on 12/18/20. Still has altered mental status, very lethargic. MRI ordered. EEG ordered. Patient ws evaluated by Neurology. Will talk to family. 12/22/20 Patient with ESRD on hemodialysis, diabetes,hypertension. She presented with altered mental status. She has been diagnosed with sepsis(POA), hypoglycemia, hypotension, thrombocytopenia. Was transferred to [facility] on 12/18/20 because of episode of hypoglycemia and hypotension. . Still has altered mental status, very lethargic. Neurology was consulted MRI ordered. EEG ordered. I spoke to daughter Michelle Kruger yesterday and gave update. For thrombocytopenia, will obtain HIT. Consult Hematology For blood in stool, will re-consult GI. Check H/H serially Elevated LFTs likely due to shock liver, improving 12/23/20 Patient with ESRD on hemodialysis, diabetes,hypertension. She presented with altered mental status. She has been diagnosed with sepsis(POA), hypoglycemia, hypotension, thrombocytopenia. Was transferred to [facility] on 12/18/20 because of episode of hypoglycemia and hypotension. . Still has altered mental status, very lethargic. Neurology was consulted MRI ordered. EEG ordered. I spoke to daughter Michelle Kruger few days ago and gave update. Patient has thrombocytopenia, worsening 54 today. Consult Hematology. HIT ordered For blood in stool, will re-consult GI. Check H/H serially Elevated LFTs likely due to shock liver, improving. Was initially evaluated by GI patient stable to [facility] since BP stable. 12/24/20; MRI brain yesterday showed extensive chronic changes but no acute i nfarct. Patient remains confused on TF. speech recommended pureed diet on prior assessment- will initiate. cont to follow 12/25/20: Ordered for Covid test, patient remains very lethargic, unable to t olerate p.o. we will continue on tube feeding. Continue supportive care. Evaluated by Dr. Odom at the bedside for bilateral lower extremity wound. Plan for debridement, continue to follow 12/26/20: Patient tested positive for COVID-19. Transfer to [facility]/Covid unit. Will place on Covid protocol, ID consult, obtain chest x-ray, initiate on dexamethasone. Patient daughter was notified about patient's positive Covid status. Continue to monitor clinically, patient remains confused. 12/27/20: Status post debridement by Dr. Odom today of bilateral lower extremities wound. MRI of lower extremities ordered. Her arterial duplex demonstrates monophasic waveforms throughout bilateral lower extremities, suggesting aortoiliac occlusive disease. She is unlikely to heal her wounds without an angiogram and improvement of her arterial flow in bilateral lower extremities. Vascular surgery consulted, patient will likely require angiogram. Follow inflammatory markers for COVID-19 pneumonia, not a candidate for remdesivir. Continue dexamethasone for now. Unable to start any anticoagulat ion due to thrombocytopenia. Subjective Date of service: 12/27/20 Principal diagnosis: change in mentation,ESRD Interval history: Patient seen and examined. Medical records and medication list reviewed. No acute event overnight noted by the RN. Patient remains nonverbal but more alert today On tube feeding, discussed plan of care with RN and case management Patient moved to Covid floor as her Covid test is positive Objective - Exam Narrative Exam: - General Apperance Constitutional: uncomfortable, other (enlarged but nonverbal) - EENT EENT: PERRL, mucous membranes moist - Respiratory Respiratory: chest non-tender, lungs clear, rales, rhonchi - Cardiovascular Cardiovascular: regular rate, normal S1, normal S2 Extremities: no peripheral edema bilat, no clubbing, cyanosis - Gastrointestinal Gastrointestinal: normoactive bowel sounds -Extremities Extensive bilateral lower extremities pressure sore ulcer with wound dressing, POA - Integumentary Integumentary: normal - Neurologic Cranial nerve examination: PERRL, EOMI, limited neurologic exam as patient is nonverbal and does not follow commands - Constitutional Vitals: Vital Signs - 12hr 12/27/20 12/27/20 12/27/20 04:49 10:54 10:57 Temperature 97.9 F 97.5 F L Pulse Rate 86 88 90 Respiratory 18 21 Rate Blood Pressure 122/43 140/53 140/53 O2 Sat by Pulse 90 97 Oximetry 12/27/20 11:39 Temperature Pulse Rate Respiratory Rate Blood Pressure O2 Sat by Pulse 92 Oximetry - Labs CBC & Chem 7: 12/28/20 05:48 12/28/20 05:48 Labs: Abnormal lab results 12/26/20 12/26/20 12/26/20 Range/Units 17:34 19:48 19:48 D-Dimer 1585.97 H (0-234) ng/mlDDU Potassium (3.6-5.0) mmol/L POC Glucose 208 H (70-105) mg/dL Ferritin 3421.0 H (10.0-200.0) ng/mL Lactate Dehydrogenase (91-180) units/L Troponin T (0.00-0.029) ng/mL C-Reactive Protein (0.00-1.30) mg/dL 12/26/20 12/26/20 12/26/20 Range/Units 19:48 19:48 23:31 D-Dimer (0-234) ng/mlDDU Potassium 5.3 H D (3.6-5.0) mmol/L POC Glucose 253 H (70-105) mg/dL Ferritin (10.0-200.0) ng/mL Lactate Dehydrogenase 581 H (91-180) units/L Troponin T 0.735 H* (0.00-0.029) ng/mL C-Reactive Protein 9.30 H (0.00-1.30) mg/dL 12/27/20 12/27/20 Range/Units 05:55 11:54 D-Dimer (0-234) ng/mlDDU Potassium (3.6-5.0) mmol/L POC Glucose 248 H 254 H (70-105) mg/dL Ferritin (10.0-200.0) ng/mL Lactate Dehydrogenase (91-180) units/L Troponin T (0.00-0.029) ng/mL C-Reactive Protein (0.00-1.30) mg/dL HEART Score - HEART Score Troponin: Troponin T 0.735 ng/mL (0.00-0.029) H* 12/26/20 19:48
--- NOTE | 2020-12-27 15:09 | Progress Note ---
Assessment and Plan Cultures: 12/16/2020 blood culture: No growth A/P: 70-year-old female with diabetes, hypertension, ESRD admitted to the hospital on 12/16/2020 due to altered mental status: #COVID: No acute change, respiratory status has improved since admission. ?False positive. #Bilateral lower extremity wounds, ?some wounds may be calciphylaxis: Wound care, dialysis compliance. b/l arterial dopplers of LE with diffuse disease, no focal stenosis. #ESRD on HD: Renally dose antibiotics. #Acute encephalopathy: CT head with atrophy, severe generalized atherosclerosis, no acute intracranial abnormality #Elevated LFTs: Downtrending. Abdominal ultrasound showed contracted gallbladder, no other acute abnormality. Hepatitis panel negative. #Thrombocytopenia Recs: -No acute treatment for COVID required. -If she decompensates would give dexamethasone. -Not a remdesivir candidate. -Wound care, offloading as possible [facility] Subjective Date of service: 12/27/20 Principal diagnosis: change in mentation,ESRD Interval history: Afebrile, no acute change. On 2 L nasal cannula. Objective - Exam Narrative Exam: Physical exam deferred to reduce risk of transmission of COVID-19. Please refer to primary team's note. - Constitutional Vitals: Vital Signs Temp Pulse Resp BP Pulse Ox 97.5 F L 90 21 140/53 92 12/27/20 10:54 12/27/20 10:57 12/27/20 10:54 12/27/20 10:57 12/27/20 11:39 Temperature -Last 24 Hours Temperature 97.5 F Temperature 97.9 F Temperature 98.7 F - Labs CBC & Chem 7: 12/26/20 07:51 12/26/20 19:48 Labs: Abnormal lab results 12/26/20 12/26/20 12/26/20 Range/Units 17:34 19:48 19:48 D-Dimer 1585.97 H (0-234) ng/mlDDU Potassium (3.6-5.0) mmol/L POC Glucose 208 H (70-105) mg/dL Ferritin 3421.0 H (10.0-200.0) ng/mL Lactate Dehydrogenase (91-180) units/L Troponin T (0.00-0.029) ng/mL C-Reactive Protein (0.00-1.30) mg/dL 12/26/20 12/26/20 12/26/20 Range/Units 19:48 19:48 23:31 D-Dimer (0-234) ng/mlDDU Potassium 5.3 H D (3.6-5.0) mmol/L POC Glucose 253 H (70-105) mg/dL Ferritin (10.0-200.0) ng/mL Lactate Dehydrogenase 581 H (91-180) units/L Troponin T 0.735 H* (0.00-0.029) ng/mL C-Reactive Protein 9.30 H (0.00-1.30) mg/dL 12/27/20 12/27/20 Range/Units 05:55 11:54 D-Dimer (0-234) ng/mlDDU Potassium (3.6-5.0) mmol/L POC Glucose 248 H 254 H (70-105) mg/dL Ferritin (10.0-200.0) ng/mL Lactate Dehydrogenase (91-180) units/L Troponin T (0.00-0.029) ng/mL C-Reactive Protein (0.00-1.30) mg/dL
--- NOTE | 2020-12-27 17:35 | Magnetic Resonance Report ---
MRI LEFT LOWER EXTREMITY JOINT WITHOUT CONTRAST INDICATION / CLINICAL INFORMATION: Stage 4 heel ulcer. TECHNIQUE: Multiplanar, multisequence MR images were obtained. No contrast used. COMPARISON: None available. FINDINGS: ACHILLES TENDON: The Achilles tendon is severely attenuated at the mid substance at 4 cm proximal to the insertion. PLANTAR FASCIA: No significant abnormality. POSTERIOR TIBIAL / FLEXOR TENDONS: No significant abnormality. PERONEAL TENDONS: No significant abnormality. ANTERIOR TIBIAL / EXTENSOR TENDONS: No significant abnormality. TALOFIBULAR LIGAMENTS: No significant abnormality. TIBIOFIBULAR LIGAMENTS: No significant abnormality. DISTAL TIBIOFIBULAR SYNDESMOSIS: No significant abnormality. CALCANEOFIBULAR LIGAMENT: No significant abnormality. DELTOID LIGAMENT: No significant abnormality. SPRING LIGAMENT: No significant abnormality. TIBIOTALAR JOINT SPACE: No chondrosis or articular cartilage defect. No significant joint effusion or synovitis. No intra-articular bodies. SUBTALAR JOINTS: No significant abnormality. SINUS TARSI: No significant abnormality. TARSAL TUNNEL: No significant abnormality. BONES / OTHER JOINTS: There is mild edema of the posterior calcaneus but no definite findings of oste omyelitis. SUBCUTANEOUS SOFT TISSUES: There is a 2.7 cm ulcer at the posterior tibial without extension to the b one. ADDITIONAL FINDINGS: Diffuse denervation edema of intrinsic foot musculature and distal calf muscles. IMPRESSION: 1. Posterior heel ulcer without extension to the bone. 2. Mild edema in the posterior calcaneus cortex characteristic for early osteitis. No definite findin gs of bone marrow osteomyelitis. 2. Severely attenuated Achilles tendon characteristic for chronic tear Report dictated by: Ryan Hughes MD Report dictated on: 12/27/2020 4:08 PM I have reviewed the images, agree with this report, and edited this report as needed. Signer Name: Richie Christianson MD Signed: 12/27/2020 5:31 PM Workstation Name: [id number]
--- NOTE | 2020-12-27 17:41 | Magnetic Resonance Report ---
MRI RIGHT ANKLE WITHOUT CONTRAST INDICATION: Stage 4 heel ulcer. TECHNIQUE: Multiplanar, multisequence MR images were obtained. COMPARISON: None available. FINDINGS: ACHILLES TENDON: Markedly thickened with anterior convexity characteristic for tendinosis. Moderate e gary within keggers fat characteristic for Achilles peritendinitis PLANTAR FASCIA: No significant abnormality. POSTERIOR TIBIAL TENDON: Type I intratendinosis accessory navicular without posterior tibial tendon d ysfunction FLEXOR DIGITORUM LONGUS TENDON: No significant abnormality. FLEXOR HALLUCIS LONGUS TENDON: No significant abnormality. PERONEAL TENDONS: No significant abnormality. EXTENSOR TENDONS: No significant abnormality. ANTERIOR TALOFIBULAR LIGAMENT: Diminutive characteristic for chronic sprain with intact fibers POSTERIOR TALOFIBULAR LIGAMENT: No significant abnormality. ANTERIOR TIBIOFIBULAR LIGAMENT: No significant abnormality. POSTERIOR TIBIOFIBULAR LIGAMENT: No significant abnormality. DISTAL TIBIOFIBULAR SYNDESMOSIS: No significant abnormality. CALCANEOFIBULAR LIGAMENT: No significant abnormality. DELTOID LIGAMENT: No significant abnormality. SPRING LIGAMENT: No significant abnormality. TIBIOTALAR ARTICULAR CARTILAGE: No chondrosis or articular cartilage defect. TIBIOTALAR JOINT SPACE: No significant joint effusion or synovitis. No intra-articular bodies. SUBTALAR JOINTS: No significant abnormality. SINUS TARSI: No significant abnormality. TARSAL TUNNEL: No significant abnormality. BONES: No significant bone marrow edema. No fracture. No osseous lesion. SUBCUTANEOUS SOFT TISSUES: Focal ulcer along posterior aspect of calcaneus measuring 1.1 cm transvers tra and 2 mm in depth ADDITIONAL FINDINGS: Denervation edema of intrinsic foot and distal foreleg musculature IMPRESSION: 1. Moderate-sized ulcer along posterior aspect of calcaneus with cortical edema characteristic for ea rly calcaneal osteitis. No bone marrow edema to suggest MR evidence for osteomyelitis 2. Marked Achilles tendinosis and moderate Achilles peritendinitis Signer Name: Richie Christianson MD Signed: 12/27/2020 5:36 PM Workstation Name: [id number]
[2020-12-27] MEDS: EPOETIN ALFA-EPBX 10,000 UNIT/1 ML VIAL SUB-Q PRN (20:45)
[2020-12-27] MEDS: MORPHINE 2 MG/1 ML INJ IV PRN (22:27)
[2020-12-28] MEDS: INSULIN REGULAR, HUMAN 100 UNITS/1 ML SUB-Q SCH ×3 (06:29→17:17)
[2020-12-28 06:48] LABS: Basophils % (Auto) 0.2 % (0.0-1.8); Hematocrit 29.6 % (30.3-42.9); Hemoglobin 9.3 gm/dl (10.1-14.3); Lymphocytes # (Auto) 1.2 K/mm3 (1.2-5.4); Lymphocytes % (Auto) 14.1 % (13.4-35.0); Mean Corpuscular HGB Conc 32 % (30-34); Mean Corpuscular Volume 102 fl (79-97); Monocytes % (Auto) 12.1 % (0.0-7.3); Red Blood Count 2.89 M/mm3 (3.65-5.03)
[2020-12-28 06:51] LABS: INR 1.34 (0.87-1.13); Red Cell Distribution Width 24.5 % (13.2-15.2)
[2020-12-28 06:52] LABS: Platelet Count 78 K/mm3 (140-440)
[2020-12-28 07:05] LABS: Calcium 9.5 mg/dL (8.4-10.2)
[2020-12-28] MEDS: LANSOPRAZOLE 30 MG SOLUTAB FEEDTUBE SCH (10:37)
[2020-12-28] MEDS: MIDODRINE 5 MG TAB PO SCH ×2 (10:37→13:47)
[2020-12-28] MEDS: DEXAMETHASONE 4 MG TAB PO SCH (10:38)
[2020-12-28] MEDS: CHOLECALCIFEROL (VIT D3) 5,000 UNIT TAB PO SCH (10:38)
[2020-12-28] MEDS: METOPROLOL TARTRATE 50 MG TAB PO SCH ×2 (10:39→21:46)
[2020-12-28] MEDS: ASCORBIC ACID 500 MG TAB PO SCH ×2 (10:39→21:49)
[2020-12-28] MEDS ORDERED: APIXABAN 2.5 MG TAB PO SCH (12:00)
--- NOTE | 2020-12-28 12:22 | Progress Note ---
Assessment and Plan 1. ESRD: Patient is on maintenance hemodialysis three times a week, MWF schedule. Meds dosage based on GFR. Hemodialysis: 12/16, 12/18, 12/20, 12/23, 12/25, 12/27. Scheduled for LE CTA. HD later today. 2. FEN: Hyperkalemia, improved. Anion-gap metabolic acidosis, improved. Monitor lytes and volume status. 3. Anemia, POA: 2/2 ESRD. Epogen with HD. 4. Acute metabolic encephalopathy, POA: CT head negative. Seen by Neuro. Monitor. 5. Sepsis, POA: S/p Abx. Bl culture negative. 6. Elevated Troponin: Followed by Cards. 7. Hypotension: On Midodrine. Monitor BP. 8. Elevated ALT / AST: Improving. 9. Thrombocytopenia: Monitor Subjective: Patient was seen and examined at the bedside. General Appearance: General appearance: well-developed, appears stated age, not in distress, NC O2, NG tube HEENT: ATNC, pupils equal Neck: trachea midline Respiratory: ctab Heart: regular, S1S2, no murmur Abdomen: soft, bowel sounds heard, not tender Integumentary: b/l leg dressing noted Neurologic: lethargic, not following any command, not conversing Ext: no edema Hemodialysis access: L IJ tunnel catheter Subjective Date of service: 12/28/20 Principal diagnosis: change in mentation,ESRD Objective - Vital Signs Vital signs: Vital Signs - 12hr 12/28/20 12/28/20 12/28/20 04:38 05:01 09:15 Temperature 98.2 F 98.3 F 97.0 F L Pulse Rate 84 102 H 69 Respiratory 18 22 18 Rate Blood Pressure 137/74 147/121 116/35 O2 Sat by Pulse 96 86 89 Oximetry - Lab 12/28/20 05:48 12/28/20 05:48 Most recent lab results Calcium 9.5 mg/dL (8.4-10.2) 12/28/20 05:48 Magnesium 2.00 mg/dL (1.7-2.3) 12/26/20 19:48 Magnesium 2.00 mg/dL (1.7-2.3) 12/26/20 19:48 Medications & Allergies - Medications Allergies/Adverse Reactions: Allergies No Known Allergies Allergy (Verified 12/11/20 17:11) Home Medications: Home Medications Medication Instructions Recorded Confirmed Last Taken Type Apixaban [Eliquis] 5 mg PO BID 12/16/20 12/16/20 Unknown History Aspirin [Adult Aspirin] 81 mg PO QDAY 12/16/20 12/16/20 Unknown History Escitalopram [Lexapro] 10 mg PO DAILY 12/16/20 12/16/20 Unknown History Gabapentin 300 mg PO QDAY 12/16/20 12/16/20 Unknown History Levemir Flextouch 6 units SUB-Q HS 12/16/20 12/22/20 Unknown History Midodrine [Proamatine] 15 mg PO TID 12/16/20 12/16/20 Unknown History NovoLOG Flexpen 6 units SUB-Q BID 12/16/20 12/22/20 Unknown History Pantoprazole [Protonix] 40 mg PO QDAY 12/16/20 12/16/20 Unknown History Vit B Comp No.3/Folic/C/Biotin 1 each PO DAILY 12/16/20 12/16/20 Unknown History [Nephro-[facility] Rx Tablet] sevelamer HCL [Sevelamer HCl] 800 mg PO TID 12/16/20 12/16/20 Unknown History Active Medications: Generic Name Dose Route Start Last Admin Trade Name Freq PRN Reason Stop Dose Admin Lipase/Protease/Amylase 1 each 12/22/20 10:34 Lipase 10,500/Protease 25,000/Amylase 43,750 (Units) Dr Lazar FEEDTUBE PRN PRN For Clogged Feeding Tube Ascorbic Acid 1,000 mg 12/26/20 22:00 12/28/20 10:39 Ascorbic Acid 500 Mg Tab PO 1,000 mg BID JEET Administration Cholecalciferol 5,000 unit 12/26/20 15:00 12/28/20 10:38 Cholecalciferol (Vit D3) 5,000 Unit Tab PO 5,000 unit DAILY JEET Administration Dexamethasone 6 mg 12/26/20 15:00 12/28/20 10:38 Dexamethasone 4 Mg Tab PO 01/04/21 10:01 6 mg Q24HR JEET Administration Dextrose 0 ml 12/16/20 03:40 12/18/20 08:23 Dextrose 50% In Water (25gm) 50 Ml Syringe IV 50 ml Q30MIN PRN Administration Hypoglycemia Protocol Sodium Chloride 100 mls @ 999 mls/hr 12/20/20 09:20 Nacl 0.9% IV ROSA M PRN Hypotension Insulin Human Regular 0 units 12/24/20 18:00 12/28/20 06:29 Insulin Regular, Human 100 Units/1 Ml SUB-Q 1 units Q6HR JEET Administration Protocol Lansoprazole 30 mg 12/25/20 10:00 12/28/20 10:37 Lansoprazole 30 Mg Solutab FEEDTUBE 30 mg QDAY JEET Administration Magnesium Hydroxide 30 ml 12/16/20 03:40 Magnesium Hydroxide (Mom) Oral Liqd Udc PO Q4H PRN Constipation Metoprolol Tartrate 50 mg 12/26/20 22:00 12/28/20 10:39 Metoprolol Tartrate 50 Mg Tab PO 50 mg BID JEET Administration Morphine Sulfate 0.5 mg 12/18/20 13:00 12/27/20 22:27 Morphine 2 Mg/1 Ml Inj IV 0.5 mg Q6H PRN Administration Pain, Moderate (4-6) Ondansetron HCl 4 mg 12/16/20 03:40 Ondansetron 4 Mg/2 Ml Inj IV Q8H PRN Nausea And Vomiting Simple Syrup 15 ml 12/22/20 08:19 Simple Syrup 15 Ml FEEDTUBE PRN PRN Hypoglycemia Simple Syrup 30 ml 12/22/20 08:19 Simple Syrup 15 Ml FEEDTUBE PRN PRN Hypoglycemia Sodium Bicarbonate 325 mg 12/22/20 10:34 Sodium Bicarbonate 325 Mg Tab FEEDTUBE PRN PRN For Clogged Feeding Tube Sodium Chloride 10 ml 12/16/20 10:00 12/28/20 10:39 Sodium Chloride 0.9% 10 Ml Flush Syringe IV 10 ml BID JEET Administration Sodium Chloride 10 ml 12/16/20 03:40 Sodium Chloride 0.9% 10 Ml Flush Syringe IV PRN PRN LINE FLUSH
--- NOTE | 2020-12-28 13:59 | Event Note ---
Date: 12/28/[address] Hsu' note. Complicated situation given the patient's comobidities. Patient would benefit from CT angiogram of the abdomen and pelvis with runoff given aortoiliac disease. CT scan ordered. Discussed with nephrology. Patient ESRD. Will see patient tomorrow after CT angiogram performed to decide upon treatment plan for lower extremities.
--- NOTE | 2020-12-28 14:19 | Progress Note ---
Assessment and Plan The patient is a 70 YO female with history significant for Hypertension, Anemia, Arthritis, CAD s/p CABG and ESRD on hemodialysis (MWF) who presented to [facility] ED 12/16 with altered mental status. Patient was recently seen here in this hospital about a week ago with hyperkalemia during which she had emergent dialysis. She has had a COVID-19 vaccination. Work-up in the emergency room showed wbc 18.2, INR of 2.8, K 5.4, BUN 34, creatinine 5.6, Lactic acid of 6.6, elevated liver enzymes with AST 2838 and ALT 1353 and Troponin 0.72. Chest x-ray showed reduced lung volumes with probable bilateral atelectasis/edema. CT scan of the head showed no acute findings. Patient has been admitted with altered mental status, hyperkalemia, lactic acidosis, elevated liver enzymes and elevated troponin. Now she is tested positive for COVID-19: 12/25 Assessment and plan: --Positive COVID-19 infection -Patient tested positive for COVID-19 virus on 12/25 -Initiated on dexamethasone -Consult ID and follow recommendation -Droplet/contact isolation -Continue SPO2 monitoring -Supplemental oxygen as needed -Pulmonary hygiene -Prone to sleep -Vitamin C, vitamin D, zinc -Anticoagulation per protocol --Acute metabolic encephalopathy Possibly secondary to multiple underlying problems including possible sepsis, end-stage renal disease with hyperkalemia and elevated liver enzymes. Will monitor mental status. MRI brain without any acute infarct, neurology consulted and recommended to obtain EEG which is pending Patient remains pleasantly confused, continue supportive care and tube feeding --Suspected sepsis sepsis, POA No clear source of infection yet, completed Cefepime and Vancomycin ID following --Thrombocytopenia may be due to Sepsis. To r/o HIT She did not get any Heparin this admission but got Heparin last admission just few days earlier Obtain HIT test Consulted Hematology, discontinued all heparin and anticoagulation -- ESRD (end stage renal disease) Nephrology consulted for hemodialysis, follow BMP, avoid nephrotoxic agents --Hyperkalemia Possibly secondary to the end-stage renal disease. Patient treated with Kayexalate, insulin/glucose, sodium bicarb and will monitor potassium levels. --Elevated liver enzymes Etiology unclear, likely due to shock liver GI was consulted, liver serologies are negative Continue to trend and medical management --Elevated troponin/NSTEMI type II Possibly secondary to the underlying end-stage renal disease versus dilated cardiomyopathy versus sepsis. However we trend cardiac enzymes and request cardiology evaluation and recommendations. 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 We will monitor Accu-Cheks closely. --Bilateral lower extremity pressure sore ulcer, unstageable Dr. Odom consulted and status post debridement on 12/27 Ordered MRI of lower extremities --Elevated JULIA Antidouble-stranded DNA marker is normal Likely patient has underlying auto inflammatory disease Need further outpatient, continue to follow clinically for now --DVT prophylaxis SCD for possible HIT, Eliquis is discontinued by hematology --Full code status Daily clinical course: 12/17/20 Patient with ESRD on hemodialysis presents with altered mental status, acute metabolic encephalopathy. Also has markedly elevated AST and ALT GI consulted. Her LFTs were normal last admission just 5 days ago. 12/18/20 Patient with ESRD on hemodialysis. Rapid response called this morning. She is very lethargic, minimal responsive. Bld glucose 45mg/dl and BP 74/15. She was given 1 amp D50. Blood glucose now 163. BP up to 123/30 but MAP still under 65. Will give 500 ml Normal Saline and transfer to [facility].I discussed with Dr. Chong, Nephrology. LFTs improving though still very high. 12/19/20 Patient with ESRD on hemodialysis. Rapid response called yesterday for hypoglycemia and hypotension, so transferred to [facility]. Blood glucose normalized. BP improved. 12/20/20 Patient with ESRD on hemodialysis. Presented with altered mental status. Was transferred to [facility] on 12/18/20. Still has altered mental status, very lethargic. MRI ordered. Neurology consulted. 12/21/20 Patient with ESRD on hemodialysis. Presented with altered mental status. Was transferred to [facility] on 12/18/20. Still has altered mental status, very lethargic. MRI ordered. EEG ordered. Patient ws evaluated by Neurology. Will talk to family. 12/22/20 Patient with ESRD on hemodialysis, diabetes,hypertension. She presented with altered mental status. She has been diagnosed with sepsis(POA), hypoglycemia, hypotension, thrombocytopenia. Was transferred to [facility] on 12/18/20 because of episode of hypoglycemia and hypotension. . Still has altered mental status, very lethargic. Neurology was consulted MRI ordered. EEG ordered. I spoke to daughter Michelle Kruger yesterday and gave update. For thrombocytopenia, will obtain HIT. Consult Hematology For blood in stool, will re-consult GI. Check H/H serially Elevated LFTs likely due to shock liver, improving 12/23/20 Patient with ESRD on hemodialysis, diabetes,hypertension. She presented with altered mental status. She has been diagnosed with sepsis(POA), hypoglycemia, hypotension, thrombocytopenia. Was transferred to [facility] on 12/18/20 because of episode of hypoglycemia and hypotension. . Still has altered mental status, very lethargic. Neurology was consulted MRI ordered. EEG ordered. I spoke to daughter Michelle Kruger few days ago and gave update. Patient has thrombocytopenia, worsening 54 today. Consult Hematology. HIT ordered For blood in stool, will re-consult GI. Check H/H serially Elevated LFTs likely due to shock liver, improving. Was initially evaluated by GI patient stable to transfer back to [facility] since BP stable. 12/24/20; MRI brain yesterday showed extensive chronic changes but no acute infarct. Patient remains confused on TF. speech recommended pureed diet on prior assessment- will initiate. cont to follow 12/25/20: Ordered for Covid test, patient remains very lethargic, unable to tolerate p.o. we will continue on tube feeding. Continue supportive care. Evaluated by Dr. Odom at the bedside for bilateral lower extremity wound. Plan for debridement, continue to follow 12/26/20: Patient tested positive for COVID-19. Transfer to [facility]/Covid unit. Will place on Covid protocol, ID consult, obtain chest x-ray, initiate on dexamethasone. Patient daughter was notified about patient's positive Covid status. Continue to monitor clinically, patient remains confused. 12/27/20: Status post debridement by Dr. Odom today of bilateral lower extremities wound. MRI of lower extremities ordered. Her arterial duplex demonstrates monophasic waveforms throughout bilateral lower extremities, suggesting aortoiliac occlusive disease. She is unlikely to heal her wounds without an angiogram and improvement of her arterial flow in bilateral lower extremities. Vascular surgery consulted, patient will likely require angiogram. Follow inflammatory markers for COVID-19 pneumonia, not a candidate for remdesivir. Continue dexamethasone for now. Unable to start any anticoagu lation due to thrombocytopenia. 12/28/20; plan for CT abdomen pelvis with contrast for extensive peripheral vascular disease. Vascular surgery following for possible angiogram. Continue to follow inflammatory markers, continue dexamethasone. Continue tube feeding diet. Speech evaluated the patient and recommended to hold oral diet. Continue to follow. Subjective Date of service: 12/28/20 Principal diagnosis: change in mentation,ESRD Interval history: Patient seen and examined. Medical records and medication list reviewed. No acute event overnight noted by the RN. Patient remains nonverbal but more alert today On tube feeding, discussed plan of care with RN and case management Patient moved to Covid floor as her Covid test is positive Objective - Exam Narrative Exam: - General Apperance Constitutional: uncomfortable, other (enlarged but nonverbal) - EENT EENT: PERRL, mucous membranes moist - Respiratory Respiratory: chest non-tender, lungs clear, rales, rhonchi - Cardiovascular Cardiovascular: regular rate, normal S1, normal S2 Extremities: no peripheral edema bilat, no clubbing, cyanosis - Gastrointestinal Gastrointestinal: normoactive bowel sounds -Extremities Extensive bilateral lower extremities pressure sore ulcer with wound dressing, POA - Integumentary Integumentary: normal - Neurologic Cranial nerve examination: PERRL, EOMI, limited neurologic exam as patient is nonverbal and does not follow commands - Constitutional Vitals: Vital Signs - 12hr 12/28/20 12/28/20 12/28/20 04:38 05:01 09:15 Temperature 98.2 F 98.3 F 97.0 F L Pulse Rate 84 102 H 69 Respiratory 18 22 18 Rate Blood Pressure 137/74 147/121 116/35 O2 Sat by Pulse 96 86 89 Oximetry 12/28/20 13:47 Temperature Pulse Rate Respiratory 18 Rate Blood Pressure O2 Sat by Pulse 93 Oximetry - Labs CBC & Chem 7: 12/28/20 15:37 12/28/20 15:37 Labs: Abnormal lab results 12/27/20 12/27/20 12/28/20 Range/Units 17:08 21:39 05:48 RBC 2.89 L (3.65-5.03) M/mm3 Hgb 9.3 L (10.1-14.3) gm/dl Hct 29.6 L (30.3-42.9) % MCV 102 H (79-97) fl RDW 24.5 H (13.2-15.2) % Plt Count 78 L (140-440) K/mm3 [place] % (Auto) 12.1 H (0.0-7.3) % [place] # (Auto) 1.0 H (0.0-0.8) K/mm3 Seg Neutrophils % 73.6 H (40.0-70.0) % PT (12.2-14.9) Sec. INR (0.87-1.13) Chloride (98-107) mmol/L BUN (7-17) mg/dL Creatinine (0.6-1.2) mg/dL Glucose (65-100) mg/dL POC Glucose 269 H 249 H (70-105) mg/dL 12/28/20 12/28/20 12/28/20 Range/Units 05:48 05:48 05:51 RBC (3.65-5.03) M/mm3 Hgb (10.1-14.3) gm/dl Hct (30.3-42.9) % MCV (79-97) fl RDW (13.2-15.2) % Plt Count (140-440) K/mm3 [place] % (Auto) (0.0-7.3) % [place] # (Auto) (0.0-0.8) K/mm3 Seg Neutrophils % (40.0-70.0) % PT 17.1 H (12.2-14.9) Sec. INR 1.34 H (0.87-1.13) Chloride 97.9 L (98-107) mmol/L BUN 39 H (7-17) mg/dL Creatinine 3.5 H (0.6-1.2) mg/dL Glucose 186 H (65-100) mg/dL POC Glucose 169 H (70-105) mg/dL 12/28/20 Range/Units 12:05 RBC (3.65-5.03) M/mm3 Hgb (10.1-14.3) gm/dl Hct (30.3-42.9) % MCV (79-97) fl RDW (13.2-15.2) % Plt Count (140-440) K/mm3 [place] % (Auto) (0.0-7.3) % [place] # (Auto) (0.0-0.8) K/mm3 Seg Neutrophils % (40.0-70.0) % PT (12.2-14.9) Sec. INR (0.87-1.13) Chloride (98-107) mmol/L BUN (7-17) mg/dL Creatinine (0.6-1.2) mg/dL Glucose (65-100) mg/dL POC Glucose 208 H (70-105) mg/dL HEART Score - HEART Score Troponin: Troponin T 0.735 ng/mL (0.00-0.029) H* 12/26/20 19:48
--- NOTE | 2020-12-28 14:52 | Progress Note ---
Assessment and Plan - Patient Problems (1) Elevated troponin Current Visit: Yes Status: Acute Plan to address problem: Nonspecific finding, patient presented initially with symptoms of hypoglycemia. (2) Dilated cardiomyopathy Current Visit: Yes Status: Acute Plan to address problem: Dilated cardiomyopathy with ejection fraction 30 to 35%, and mild to moderate mitral stenosis found on echocardiogram during this admission. Chronicity is undetermined at this time, will continue conservative medical management. Subjective Date of service: 12/28/20 Principal diagnosis: change in mentation,ESRD Interval history: Patient is comfortable, no cardiac complaints, NG tube in situ, no acute distress. Objective Vital Signs Temp Pulse Resp BP Pulse Ox Pulse Ox Pulse Ox 12/28/20 13:47 18 93 12/28/20 09:15 97.0 F L 69 18 116/35 89 12/28/20 05:01 98.3 F 102 H 22 147/121 86 12/28/20 04:38 98.2 F 84 18 137/74 96 12/27/20 22:57 18 12/27/20 22:27 20 12/27/20 22:19 84 142/50 12/27/20 22:00 84 92 12/27/20 21:40 92 12/27/20 21:37 97.4 F L 84 18 142/50 99 12/27/20 21:00 98.0 F 84 20 129/64 100 92 12/27/20 20:45 85 136/37 12/27/20 20:30 85 146/43 12/27/20 20:15 82 121/24 12/27/20 20:00 85 122/55 12/27/20 19:45 84 119/16 12/27/20 19:30 85 123/55 12/27/20 19:15 87 117/53 12/27/20 19:00 82 128/47 12/27/20 18:45 85 127/47 12/27/20 18:30 82 128/17 12/27/20 18:15 82 127/57 12/27/20 18:00 80 135/50 12/27/20 17:45 97.8 F 77 20 116/20 92 92 12/27/20 17:09 77 98 12/27/20 17:07 78 105/32 92 Pulse Ox 12/28/20 13:47 12/28/20 09:15 12/28/20 05:01 12/28/20 04:38 12/27/20 22:57 12/27/20 22:27 12/27/20 22:19 12/27/20 22:00 12/27/20 21:40 12/27/20 21:37 12/27/20 21:00 100 12/27/20 20:45 12/27/20 20:30 12/27/20 20:15 12/27/20 20:00 12/27/20 19:45 12/27/20 19:30 12/27/20 19:15 12/27/20 19:00 12/27/20 18:45 12/27/20 18:30 12/27/20 18:15 12/27/20 18:00 12/27/20 17:45 100 12/27/20 17:09 12/27/20 17:07 - Physical Examination General: No Apparent Distress HEENT: Positive: PERRL Neck: Positive: neck supple Cardiac: Positive: Reg Rate and Rhythm Lungs: Positive: Decreased Breath Sounds Neuro: Positive: Weakness Abdomen: Positive: Soft Skin: Positive: Clear Extremities: Absent: edema - Labs and Meds Coagulation 12/28/20 Range/Units 05:48 PT 17.1 H (12.2-14.9) Sec. INR 1.34 H (0.87-1.13) CBC 12/28/20 Range/Units 05:48 WBC 8.4 (4.5-11.0) K/mm3 RBC 2.89 L (3.65-5.03) M/mm3 Hgb 9.3 L (10.1-14.3) gm/dl Hct 29.6 L (30.3-42.9) % Plt Count 78 L (140-440) K/mm3 Lymph # (Auto) 1.2 (1.2-5.4) K/mm3 [place] # (Auto) 1.0 H (0.0-0.8) K/mm3 Eos # (Auto) 0.0 (0.0-0.4) K/mm3 Baso # (Auto) 0.0 (0.0-0.1) K/mm3 Comprehensive Metabolic Panel 12/28/20 Range/Units 05:48 Sodium 140 (137-145) mmol/L Potassium 4.4 (3.6-5.0) mmol/L Chloride 97.9 L (98-107) mmol/L Carbon Dioxide 25 (22-30) mmol/L BUN 39 H (7-17) mg/dL Creatinine 3.5 H (0.6-1.2) mg/dL Glucose 186 H (65-100) mg/dL Calcium 9.5 (8.4-10.2) mg/dL
[2020-12-28 16:05] LABS: Mean Corpuscular HGB Conc 29 % (30-34); Mean Corpuscular Volume 107 fl (79-97); Red Blood Count 2.98 M/mm3 (3.65-5.03)
[2020-12-28 16:06] LABS: Hematocrit 31.9 % (30.3-42.9); Hemoglobin 9.4 gm/dl (10.1-14.3); Platelet Count 90 K/mm3 (140-440)
[2020-12-28 16:31] LABS: INR 1.38 (0.87-1.13); Partial Thromboplastin Time 28.1 Sec. (24.2-36.6)
[2020-12-28] MEDS: MORPHINE 2 MG/1 ML INJ IV PRN (21:55)
[2020-12-29] MEDS: INSULIN REGULAR, HUMAN 100 UNITS/1 ML SUB-Q SCH ×4 (00:12→18:38)
[2020-12-29] MEDS: METOPROLOL TARTRATE 50 MG TAB PO SCH ×2 (10:29→21:57)
[2020-12-29] MEDS: CHOLECALCIFEROL (VIT D3) 5,000 UNIT TAB PO SCH (10:29)
[2020-12-29] MEDS: ASCORBIC ACID 500 MG TAB PO SCH ×2 (10:29→21:57)
[2020-12-29] MEDS: LANSOPRAZOLE 30 MG SOLUTAB FEEDTUBE SCH (10:29)
[2020-12-29] MEDS: DEXAMETHASONE 4 MG TAB PO SCH (10:29)
--- NOTE | 2020-12-29 11:49 | Progress Note ---
Assessment and Plan 1. ESRD: Patient is on maintenance hemodialysis three times a week, MWF schedule. Meds dosage based on GFR. Hemodialysis: 12/16, 12/18, 12/20, 12/23, 12/25, 12/27. 2. FEN: Hyperkalemia, improved. Anion-gap metabolic acidosis, improved. Monitor lytes and volume status. 3. Anemia, POA: 2/2 ESRD. Epogen with HD. 4. Acute metabolic encephalopathy, POA: CT head negative. Seen by Neuro. Monitor. 5. Sepsis, POA: S/p Abx. Bl culture negative. 6. Elevated Troponin // Dilated cardiomyopathy: 2D echo showed EF 30 to 35%. Cardiology following and recommended medical management. 7. Diabetes mellitus type 2: Accu-Cheks and SSI. 8. Bilateral lower extremity pressure sore ulcer, unstageable: S/p debridement on 12/27. Unable to do CTA LE yesterday. Also followed by Vascular. 9. Hypotension: On Midodrine. Monitor BP. 10. Elevated ALT / AST: Improving. 11. Thrombocytopenia: Monitor. 12. Positive JULIA: Pt need to f/w Rheum outpatient. Subjective: Patient was seen and examined at the bedside. General Appearance: General appearance: well-developed, appears stated age, not in distress, NC O2, NG tube HEENT: ATNC, pupils equal Neck: trachea midline Respiratory: ctab Heart: regular, S1S2, no murmur Abdomen: soft, bowel sounds heard, not tender Integumentary: b/l leg dressing noted Neurologic: lethargic, not following any command, not conversing Ext: no edema Hemodialysis access: L IJ tunnel catheter Subjective Date of service: 12/29/20 Principal diagnosis: change in mentation,ESRD Objective - Vital Signs Vital signs: Vital Signs - 12hr 12/29/20 12/29/20 12/29/20 06:00 06:43 08:28 Temperature 97.8 F Pulse Rate 57 L Respiratory 20 Rate Blood Pressure 123/65 O2 Sat by Pulse 95 94 Oximetry 12/29/20 10:27 Temperature 98.6 F Pulse Rate 80 Respiratory 20 Rate Blood Pressure 143/60 O2 Sat by Pulse 96 Oximetry - Lab 12/28/20 15:37 12/28/20 15:37 Most recent lab results Calcium 9.5 mg/dL (8.4-10.2) 12/28/20 05:48 Magnesium 2.00 mg/dL (1.7-2.3) 12/26/20 19:48 Magnesium 2.00 mg/dL (1.7-2.3) 12/26/20 19:48 Medications & Allergies - Medications Allergies/Adverse Reactions: Allergies No Known Allergies Allergy (Verified 12/11/20 17:11) Home Medications: Home Medications Medication Instructions Recorded Confirmed Last Taken Type Apixaban [Eliquis] 5 mg PO BID 12/16/20 12/16/20 Unknown History Aspirin [Adult Aspirin] 81 mg PO QDAY 12/16/20 12/16/20 Unknown History Escitalopram [Lexapro] 10 mg PO DAILY 12/16/20 12/16/20 Unknown History Gabapentin 300 mg PO QDAY 12/16/20 12/16/20 Unknown History Levemir Flextouch 6 units SUB-Q HS 12/16/20 12/22/20 Unknown History Midodrine [Proamatine] 15 mg PO TID 12/16/20 12/16/20 Unknown History NovoLOG Flexpen 6 units SUB-Q BID 12/16/20 12/22/20 Unknown History Pantoprazole [Protonix] 40 mg PO QDAY 12/16/20 12/16/20 Unknown History Vit B Comp No.3/Folic/C/Biotin 1 each PO DAILY 12/16/20 12/16/20 Unknown History [Nephro-[facility] Rx Tablet] sevelamer HCL [Sevelamer HCl] 800 mg PO TID 12/16/20 12/16/20 Unknown History Active Medications: Generic Name Dose Route Start Last Admin Trade Name Freq PRN Reason Stop Dose Admin Lipase/Protease/Amylase 1 each 12/22/20 10:34 Lipase 10,500/Protease 25,000/Amylase 43,750 (Units) Dr Lazar FEEDTUBE PRN PRN For Clogged Feeding Tube Ascorbic Acid 1,000 mg 12/26/20 22:00 12/29/20 10:29 Ascorbic Acid 500 Mg Tab PO 1,000 mg BID JEET Administration Cholecalciferol 5,000 unit 12/26/20 15:00 12/29/20 10:29 Cholecalciferol (Vit D3) 5,000 Unit Tab PO 5,000 unit DAILY JEET Administration Dexamethasone 6 mg 12/26/20 15:00 12/29/20 10:29 Dexamethasone 4 Mg Tab PO 01/04/21 10:01 6 mg Q24HR JEET Administration Dextrose 0 ml 12/16/20 03:40 12/18/20 08:23 Dextrose 50% In Water (25gm) 50 Ml Syringe IV 50 ml Q30MIN PRN Administration Hypoglycemia Protocol Sodium Chloride 100 mls @ 999 mls/hr 12/20/20 09:20 Nacl 0.9% IV ROSA M PRN Hypotension Insulin Human Regular 0 units 12/24/20 18:00 12/29/20 06:48 Insulin Regular, Human 100 Units/1 Ml SUB-Q 4 units Q6HR JEET Administration Protocol Lansoprazole 30 mg 12/25/20 10:00 12/29/20 10:29 Lansoprazole 30 Mg Solutab FEEDTUBE 30 mg QDAY JEET Administration Magnesium Hydroxide 30 ml 12/16/20 03:40 Magnesium Hydroxide (Mom) Oral Liqd Udc PO Q4H PRN Constipation Metoprolol Tartrate 50 mg 12/26/20 22:00 12/29/20 10:29 Metoprolol Tartrate 50 Mg Tab PO 50 mg BID JEET Administration Morphine Sulfate 0.5 mg 12/18/20 13:00 12/28/20 21:55 Morphine 2 Mg/1 Ml Inj IV 0.5 mg Q6H PRN Administration Pain, Moderate (4-6) Ondansetron HCl 4 mg 12/16/20 03:40 Ondansetron 4 Mg/2 Ml Inj IV Q8H PRN Nausea And Vomiting Simple Syrup 15 ml 12/22/20 08:19 Simple Syrup 15 Ml FEEDTUBE PRN PRN Hypoglycemia Simple Syrup 30 ml 12/22/20 08:19 Simple Syrup 15 Ml FEEDTUBE PRN PRN Hypoglycemia Sodium Bicarbonate 325 mg 12/22/20 10:34 Sodium Bicarbonate 325 Mg Tab FEEDTUBE PRN PRN For Clogged Feeding Tube Sodium Chloride 10 ml 12/16/20 10:00 12/29/20 10:29 Sodium Chloride 0.9% 10 Ml Flush Syringe IV 10 ml BID JEET Administration Sodium Chloride 10 ml 12/16/20 03:40 Sodium Chloride 0.9% 10 Ml Flush Syringe IV PRN PRN LINE FLUSH
--- NOTE | 2020-12-29 12:51 | Progress Note ---
Assessment and Plan The patient is a 70 YO female with history significant for Hypertension, Anemia, Arthritis, CAD s/p CABG and ESRD on hemodialysis (MWF) who presented to [facility] ED 12/16 with altered mental status. Patient was recently seen here in this hospital about a week ago with hyperkalemia during which she had emergent dialysis. She has had a COVID-19 vaccination. Work-up in the emergency room showed wbc 18.2, INR of 2.8, K 5.4, BUN 34, creatinine 5.6, Lactic acid of 6.6, elevated liver enzymes with AST 2838 and ALT 1353 and Troponin 0.72. Chest x-ray showed reduced lung volumes with probable bilateral atelectasis/edema. CT scan of the head showed no acute findings. Patient has been admitted with altered mental status, hyperkalemia, lactic acidosis, elevated liver enzymes and elevated troponin. Now she is tested positive for COVID-19: 12/25 Assessment and plan: --Positive COVID-19 infection -Patient tested positive for COVID-19 virus on 12/25 -Initiated on dexamethasone -Consult ID and follow recommendation -Droplet/contact isolation -Continue SPO2 monitoring -Supplemental oxygen as needed -Pulmonary hygiene -Prone to sleep -Vitamin C, vitamin D, zinc -Anticoagulation per protocol --Acute metabolic encephalopathy Possibly secondary to multiple underlying problems including possible sepsis, end-stage renal disease with hyperkalemia and elevated liver enzymes. Will monitor mental status. MRI brain without any acute infarct, neurology consulted and recommended to obtain EEG which is pending Patient remains pleasantly confused, continue supportive care and tube feeding --Suspected sepsis sepsis, POA No clear source of infection yet, completed Cefepime and Vancomycin ID following --Thrombocytopenia may be due to Sepsis. To r/o HIT She did not get any Heparin this admission but got Heparin last admission just few days earlier Obtain HIT test Consulted Hematology, discontinued all heparin and anticoagulation -- ESRD (end stage renal disease) Nephrology consulted for hemodialysis, follow BMP, avoid nephrotoxic agents --Hyperkalemia Possibly secondary to the end-stage renal disease. Patient treated with Kayexalate, insulin/glucose, sodium bicarb and will monitor potassium levels. --Elevated liver enzymes Etiology unclear, likely due to shock liver GI was consulted, liver serologies are negative Continue to trend and medical management --Elevated troponin/NSTEMI type II Possibly secondary to the underlying end-stage renal disease versus dilated cardiomyopathy versus sepsis. However we trend cardiac enzymes and request cardiology evaluation and recommendations. 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 We will monitor Accu-Cheks closely. --Bilateral lower extremity pressure sore ulcer, unstageable Dr. Odom consulted and status post debridement on 12/27 Ordered MRI of lower extremities --Elevated JULIA Antidouble-stranded DNA marker is normal Likely patient has underlying auto inflammatory disease Need further outpatient, continue to follow clinically for now --DVT prophylaxis SCD for possible HIT, Eliquis is discontinued by hematology --Full code status Daily clinical course: 12/17/20 Patient with ESRD on hemodialysis presents with altered mental status, acute metabolic encephalopathy. Also has markedly elevated AST and ALT GI consulted. Her LFTs were normal last admission just 5 days ago. 12/18/20 Patient with ESRD on hemodialysis. Rapid response called this morning. She is very lethargic, minimal responsive. Bld glucose 45mg/dl and BP 74/15. She was given 1 amp D50. Blood glucose now 163. BP up to 123/30 but MAP still under 65. Will give 500 ml Normal Saline and transfer to [facility].I discussed with Dr. Chong, Nephrology. LFTs improving though still very high. 12/19/20 Patient with ESRD on hemodialysis. Rapid response called yesterday for hypoglycemia and hypotension, so transferred to [facility]. Blood glucose normalized. BP improved. 12/20/20 Patient with ESRD on hemodialysis. Presented with altered mental status. Was transferred to [facility] on 12/18/20. Still has altered mental status, very lethargic. MRI ordered. Neurology consulted. 12/21/20 Patient with ESRD on hemodialysis. Presented with altered mental status. Was transferred to [facility] on 12/18/20. Still has altered mental status, very lethargic. MRI ordered. EEG ordered. Patient ws evaluated by Neurology. Will talk to family. 12/22/20 Patient with ESRD on hemodialysis, diabetes,hypertension. She presented with altered mental status. She has been diagnosed with sepsis(POA), hypoglycemia, hypotension, thrombocytopenia. Was transferred to [facility] on 12/18/20 because of episode of hypoglycemia and hypotension. . Still has altered mental status, very lethargic. Neurology was consulted MRI ordered. EEG ordered. I spoke to daughter Michelle Kruger yesterday and gave update. For thrombocytopenia, will obtain HIT. Consult Hematology For blood in stool, will re-consult GI. Check H/H serially Elevated LFTs likely due to shock liver, improving 12/23/20 Patient with ESRD on hemodialysis, diabetes,hypertension. She presented with altered mental status. She has been diagnosed with sepsis(POA), hypoglycemia, hypotension, thrombocytopenia. Was transferred to [facility] on 12/18/20 because of episode of hypoglycemia and hypotension. . Still has altered mental status, very lethargic. Neurology was consulted MRI ordered. EEG ordered. I spoke to daughter Michelle Kruger few days ago and gave update. Patient has thrombocytopenia, worsening 54 today. Consult Hematology. HIT ordered For blood in stool, will re-consult GI. Check H/H serially Elevated LFTs likely due to shock liver, improving. Was initially evaluated by GI patient stable to transfer back to [facility] since BP stable. 12/24/20; MRI brain yesterday showed extensive chronic changes but no acute infarct. Patient remains confused on TF. speech recommended pureed diet on prior assessment- will initiate. cont to follow 12/25/20: Ordered for Covid test, patient remains very lethargic, unable to tolerate p.o. we will continue on tube feeding. Continue supportive care. Evaluated by Dr. Odom at the bedside for bilateral lower extremity wound. Plan for debridement, continue to follow 12/26/20: Patient tested positive for COVID-19. Transfer to [facility]Covid unit. Will place on Covid protocol, ID consult, obtain chest x-ray, initiate on dexamethasone. Patient daughter was notified about patient's positive Covid status. Continue to monitor clinically, patient remains confused. 12/27/20: Status post debridement by Dr. Odom today of bilateral lower extremities wound. MRI of lower extremities ordered. Her arterial duplex demonstrates monophasic waveforms throughout bilateral lower extremities, suggesting aortoiliac occlusive disease. She is unlikely to heal her wounds without an angiogram and improvement of her arterial flow in bilateral lower extremities. Vascular surgery consulted, patient will likely require angiogram. Follow inflammatory markers for COVID-19 pneumonia, not a candidate for remdesivir. Continue dexamethasone for now. Unable to start any anticoagu lation due to thrombocytopenia. 12/28/20; plan for CT abdomen pelvis with contrast for extensive peripheral vascular disease. Vascular surgery following for possible angiogram. Continue to follow inflammatory markers, continue dexamethasone. Continue tube feeding diet. Speech evaluated the patient and recommended to hold oral diet. Continue to follow. 12/29/20; CT abdomen pelvis tomorrow as patient will need hemodialysis within 24 hours. Remains on tube feeding, wait for repeat speech eval. Continue supportive care. Subjective Date of service: 12/29/20 Principal diagnosis: change in mentation,ESRD Interval history: Patient seen and examined. Medical records and medication list reviewed. No acute event overnight noted by the RN. Patient remains nonverbal but more alert On tube feeding, discussed plan of care with RN and case management Objective - Exam Narrative Exam: - General Apperance Constitutional: uncomfortable, other (enlarged but nonverbal) - EENT EENT: PERRL, mucous membranes moist - Respiratory Respiratory: chest non-tender, lungs clear, rales, rhonchi - Cardiovascular Cardiovascular: regular rate, normal S1, normal S2 Extremities: no peripheral edema bilat, no clubbing, cyanosis - Gastrointestinal Gastrointestinal: normoactive bowel sounds -Extremities Extensive bilateral lower extremities pressure sore ulcer with wound dressing, POA - Integumentary Integumentary: normal - Neurologic Cranial nerve examination: PERRL, EOMI, limited neurologic exam as patient is nonverbal and does not follow commands - Constitutional Vitals: Vital Signs - 12hr 12/29/20 12/29/20 12/29/20 06:00 06:43 08:28 Temperature 97.8 F Pulse Rate 57 L Respiratory 20 Rate Blood Pressure 123/65 O2 Sat by Pulse 95 94 Oximetry 12/29/20 10:27 Temperature 98.6 F Pulse Rate 80 Respiratory 20 Rate Blood Pressure 143/60 O2 Sat by Pulse 96 Oximetry - Labs CBC & Chem 7: 12/30/20 15:01 12/30/20 15:01 Labs: Abnormal lab results 12/28/20 12/28/20 12/28/20 Range/Units 15:37 15:37 15:37 RBC 2.98 L (3.65-5.03) M/mm3 Hgb 9.4 L (10.1-14.3) gm/dl MCV 107 H (79-97) fl MCHC 29 L (30-34) % RDW 25.0 H (13.2-15.2) % Plt Count 90 L (140-440) K/mm3 PT 17.5 H (12.2-14.9) Sec. INR 1.38 H (0.87-1.13) Creatinine 3.9 H (0.6-1.2) mg/dL POC Glucose (70-105) mg/dL 12/28/20 12/28/20 12/29/20 Range/Units 16:09 21:29 06:36 RBC (3.65-5.03) M/mm3 Hgb (10.1-14.3) gm/dl MCV (79-97) fl MCHC (30-34) % RDW (13.2-15.2) % Plt Count (140-440) K/mm3 PT (12.2-14.9) Sec. INR (0.87-1.13) Creatinine (0.6-1.2) mg/dL POC Glucose 215 H 251 H 325 H (70-105) mg/dL 12/29/20 Range/Units 12:11 RBC (3.65-5.03) M/mm3 Hgb (10.1-14.3) gm/dl MCV (79-97) fl MCHC (30-34) % RDW (13.2-15.2) % Plt Count (140-440) K/mm3 PT (12.2-14.9) Sec. INR (0.87-1.13) Creatinine (0.6-1.2) mg/dL POC Glucose 352 H (70-105) mg/dL HEART Score - HEART Score Troponin: Troponin T 0.735 ng/mL (0.00-0.029) H* 12/26/20 19:48
--- NOTE | 2020-12-29 13:42 | Progress Note ---
Assessment and Plan - Patient Problems (1) Dilated cardiomyopathy Current Visit: Yes Status: Acute Plan to address problem: Dilated cardiomyopathy with ejection fraction 30 to 35%, and mild to moderate mitral stenosis found on echocardiogram during this admission. Chronicity is undetermined at this time, will continue conservative medical management. (2) Elevated troponin Current Visit: Yes Status: Acute Plan to address problem: Nonspecific finding, patient presented initially with symptoms of hypoglycemia. Subjective Date of service: 12/29/20 Principal diagnosis: change in mentation,ESRD Interval history: Patient is alert, comfortably no acute distress. NG tube in situ. No cardiac complaints have been reported. Objective Vital Signs Temp Pulse Resp BP BP Pulse Ox 12/29/20 10:27 98.6 F 80 20 143/60 96 12/29/20 08:28 94 12/29/20 06:43 97.8 F 20 123/65 12/29/20 06:00 57 L 95 12/28/20 22:00 18 93 12/28/20 21:46 76 133/46 12/28/20 21:35 98.0 F 76 20 133/46 96 12/28/20 17:20 80 18 100 12/28/20 17:00 97.6 F 126/70 12/28/20 13:47 18 93 - Physical Examination General: No Apparent Distress, Cachectic HEENT: Positive: PERRL Neck: Positive: neck supple Cardiac: Positive: Reg Rate and Rhythm Lungs: Positive: Decreased Breath Sounds Neuro: Positive: Weakness Abdomen: Positive: Soft Skin: Positive: Clear Extremities: Absent: edema - Labs and Meds Coagulation 12/28/20 Range/Units 15:37 PT 17.5 H (12.2-14.9) Sec. INR 1.38 H (0.87-1.13) APTT 28.1 (24.2-36.6) Sec. CBC 12/28/20 Range/Units 15:37 WBC 9.5 (4.5-11.0) K/mm3 RBC 2.98 L (3.65-5.03) M/mm3 Hgb 9.4 L (10.1-14.3) gm/dl Hct 31.9 (30.3-42.9) % Plt Count 90 L (140-440) K/mm3 Comprehensive Metabolic Panel 12/28/20 Range/Units 15:37 Creatinine 3.9 H (0.6-1.2) mg/dL
--- NOTE | 2020-12-29 14:26 | Cat Scan Report ---
CTA ABDOMEN, PELVIS, AND LOWER EXTREMITIES WITH CONTRAST INDICATION / CLINICAL INFORMATION: Lower extremity gangrene. TECHNIQUE: Axial CT images were obtained through the abdomen, pelvis and lower extremities after inje ction of Omnipaque 300, 100 cc IV contrast. 3 plane MIP / 3D reconstructions were produced. All CT sc ans at this location are performed using CT dose reduction for ALARA by means of automated exposure c ontrol. COMPARISON: None available. FINDINGS: CTA ABDOMEN: Abdominal Aorta: Diffuse atherosclerotic vascular calcification. No focal narrowing. Celiac Artery: Diffuse atherosclerotic vascular calcification. High-grade origin stenosis. Superior Mesenteric Artery: Diffuse atherosclerotic vascular calcification. No flow limiting stenosis . Right Renal Artery: Occluded. Left Renal Artery: Moderate/high-grade stenosis several CM distal to the origin. Inferior Mesenteric Artery: Diffuse atherosclerotic vascular calcification. No flow limiting stenosis . CTA PELVIS: RIGHT: - Common Iliac Artery: Diffuse atherosclerotic calcification without flow limiting stenosis. - Internal Iliac Artery: Diffuse atherosclerotic calcification without flow limiting stenosis. - External Iliac Artery: Diffuse atherosclerotic calcification without flow limiting stenosis. LEFT: - Common Iliac Artery: Diffuse atherosclerotic calcification without flow limiting stenosis. - Internal Iliac Artery: Diffuse atherosclerotic calcification without flow limiting stenosis. - External Iliac Artery: Diffuse atherosclerotic calcification without flow limiting stenosis. CTA LOWER EXTREMITIES: RIGHT LOWER EXTREMITY: - Common Femoral Artery: Diffuse atherosclerotic vascular calcification without flow limiting stenosi s. - Superficial Femoral Artery: Diffuse atherosclerotic calcification with multifocal areas of mild/mod erate stenosis. Critical stenosis versus focal occlusion distally. - Profunda Femoral Artery: Diffuse atherosclerotic calcification without flow limiting stenosis. - Popliteal Artery: Diffuse atherosclerotic vascular calcification with areas of high-grade stenosis. Occlusion below the knee.- Anterior Tibial Artery: Diffuse atherosclerotic calcification. Diffusely diseased. - Tibioperoneal Trunk: Occluded with reconstitution via collaterals. - Posterior Tibial Artery: Atherosclerotic vascular calcification. - Peroneal Artery: Atherosclerotic calcification. - Ankle runoff: 3 runoff vessels are patent. No continuous runoff.. LEFT LOWER EXTREMITY: - Common Femoral Artery: Diffuse atherosclerotic calcification. No focal stenosis. - Superficial Femoral Artery: Diffuse atherosclerotic calcification with multifocal stenoses and near complete occlusion distally. - Profunda Femoral Artery: Diffuse atherosclerotic calcification. No focal stenosis. - Popliteal Artery: Diffusely diseased with areas of high-grade stenosis and occlusion distally. - Anterior Tibial Artery: Diseased but patent. - Tibioperoneal Trunk: Occluded. - Posterior Tibial Artery: Occluded proximally with reconstitution distally. - Peroneal Artery: Diseased but patent. - Ankle runoff: No continuous runoff. NONTARGET STRUCTURES: ABDOMEN:Small left effusion. Patchy groundglass opacity at both lung bases. Fatty liver. Chronic dre l failure with absence of the right kidney and small left kidney containing cysts. Enlargement of the right psoas muscle with internal increased density. PELVIS:Mild pelvic ascites. LOWER EXTREMITIES:No significant abnormality. SKELETAL: No significant abnormality. ADDITIONAL FINDINGS: None. IMPRESSION: 1. Diffuse vascular disease with atherosclerotic vascular calcification. 2. Occlusion or clinically significant stenosis at the origin of the celiac axis and both renal arter ies. 3. Severe disease/occlusion at the superficial femoral and popliteal arteries bilaterally. No continu ous runoff. 4. The 3 runoff vessels are diseased but patent on the right. 5. 2 diseased, but patent runoff vessels on the left with reconstitution of the posterior tibial cayden ry distally. 6. Small left effusion and patchy bibasilar consolidation worrisome for pneumonia. Signer Name: Marshall Barraza MD Signed: 12/29/2020 2:21 PM Workstation Name: [id number]
--- NOTE | 2020-12-29 16:01 | Consultation ---
History of Present Illness - Reason for Consult Consult date: 12/29/20 LE ulcers Requesting physician: TOMMIE ESCOBEDO - History of Present Illness 70-year-old female with a history of hypertension end-stage renal disease missed dialysis for the past 5 days. Patient complained of shortness of breath generalized malaise over the past 2 days. Patient presents to the ED needing hemodialysis. For acute renal failure. Work-up patient found to have hyperkalemia as well as BUN of 73 and creatinine of 8. Patient somewhat poor historian otherwise no acute distress. Patient denies pain. No shortness no nausea vomiting no abdominal pain only shortness of breath. During admission, patient found to be Covid positive, have bilateral lower extremity wounds requiring debridement, and has had poor p.o. intake. Patient has nonpalpable pedal pulses. CT angiogram was performed that demonstrating peripheral vascular disease in the infrainguinal vessels despite monophasic inflow waveforms. 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 Past History Past Medical History: diabetes, dialysis, ESRD, hypertension Past Surgical History: Other (Left arm AV fistula, Left chest Vas Cath.) Social history: no significant social history Family history: no significant family history Medications and Allergies Allergies Allergy/AdvReac Type Severity Reaction Status Date / Time No Known Allergies Allergy Verified 12/11/20 17:11 Home Medications Medication Instructions Recorded Confirmed Last Taken Type Apixaban [Eliquis] 5 mg PO BID 12/16/20 12/16/20 Unknown History Aspirin [Adult Aspirin] 81 mg PO QDAY 12/16/20 12/16/20 Unknown History Escitalopram [Lexapro] 10 mg PO DAILY 12/16/20 12/16/20 Unknown History Gabapentin 300 mg PO QDAY 12/16/20 12/16/20 Unknown History Levemir Flextouch 6 units SUB-Q HS 12/16/20 12/22/20 Unknown History Midodrine [Proamatine] 15 mg PO TID 12/16/20 12/16/20 Unknown History NovoLOG Flexpen 6 units SUB-Q BID 12/16/20 12/22/20 Unknown History Pantoprazole [Protonix] 40 mg PO QDAY 12/16/20 12/16/20 Unknown History Vit B Comp No.3/Folic/C/Biotin 1 each PO DAILY 12/16/20 12/16/20 Unknown History [Nephro-Nola Rx Tablet] sevelamer HCL [Sevelamer HCl] 800 mg PO TID 12/16/20 12/16/20 Unknown History Active Meds: Active Medications Lipase/Protease/Amylase (Lipase 10,500/Protease 25,000/Amylase 43,750 (Units) Dr Lazar) 1 each FEEDTUBE PRN PRN PRN Reason: For Clogged Feeding Tube Ascorbic Acid (Ascorbic Acid 500 Mg Tab) 1,000 mg PO BID [facility] Last Admin: 12/29/20 10:29 Dose: 1,000 mg Documented by: Cholecalciferol (Cholecalciferol (Vit D3) 5,000 Unit Tab) 5,000 unit PO DAILY [facility] Last Admin: 12/29/20 10:29 Dose: 5,000 unit Documented by: Dexamethasone (Dexamethasone 4 Mg Tab) 6 mg PO Q24HR [facility] Stop: 01/04/21 10:01 Last Admin: 12/29/20 10:29 Dose: 6 mg Documented by: Dextrose (Dextrose 50% In Water (25gm) 50 Ml Syringe) 0 ml IV Q30MIN PRN; Protocol PRN Reason: Hypoglycemia Last Admin: 12/18/20 08:23 Dose: 50 ml Documented by: Sodium Chloride (Nacl 0.9%) 100 mls @ 999 mls/hr IV ROSA M PRN PRN Reason: Hypotension Insulin Human Regular (Insulin Regular, Human 100 Units/1 Ml) 0 units SUB-Q Q 6HR [facility]; Protocol Last Admin: 12/29/20 12:31 Dose: 5 units Documented by: Lansoprazole (Lansoprazole 30 Mg Solutab) 30 mg FEEDTUBE QDAY [facility] Last Admin: 12/29/20 10:29 Dose: 30 mg Documented by: Magnesium Hydroxide (Magnesium Hydroxide (Mom) Oral Liqd Udc) 30 ml PO Q4H PRN PRN Reason: Constipation Metoprolol Tartrate (Metoprolol Tartrate 50 Mg Tab) 50 mg PO BID [facility] Last Admin: 12/29/20 10:29 Dose: 50 mg Documented by: Morphine Sulfate (Morphine 2 Mg/1 Ml Inj) 0.5 mg IV Q6H PRN PRN Reason: Pain, Moderate (4-6) Last Admin: 12/28/20 21:55 Dose: 0.5 mg Documented by: Ondansetron HCl (Ondansetron 4 Mg/2 Ml Inj) 4 mg IV Q8H PRN PRN Reason: Nausea And Vomiting Simple Syrup (Simple Syrup 15 Ml) 15 ml FEEDTUBE PRN PRN PRN Reason: Hypoglycemia Simple Syrup (Simple Syrup 15 Ml) 30 ml FEEDTUBE PRN PRN PRN Reason: Hypoglycemia Sodium Bicarbonate (Sodium Bicarbonate 325 Mg Tab) 325 mg FEEDTUBE PRN PRN PRN Reason: For Clogged Feeding Tube Sodium Chloride (Sodium Chloride 0.9% 10 Ml Flush Syringe) 10 ml IV BID JE[facility] Last Admin: 12/29/20 10:29 Dose: 10 ml Documented by: Sodium Chloride (Sodium Chloride 0.9% 10 Ml Flush Syringe) 10 ml IV PRN PRN PRN Reason: LINE FLUSH Review of Systems ROS unobtainable: due to mental status Exam - Constitutional Vitals: Temp Pulse Resp BP Pulse Ox 98.6 F 80 20 143/60 96 12/29/20 10:27 12/29/20 10:27 12/29/20 10:27 12/29/20 10:27 12/29/20 10:27 General appearance: Present: no acute distress - EENT Eyes: Present: EOM intact ENT: hearing intact - Respiratory Respiratory effort: normal - Extremities Extremities: normal temperature, normal color, abnormal (Wounds of the bilateral lower extremities, toes have early signs of gangrene bilaterally) Extremity abnormal: pulses diminished (Nonpalpable pedal pulses) - Abdominal General gastrointestinal: Present: soft, non-tender - Psychiatric Psychiatric: appropriate mood/affect, cooperative Results - Labs CBC & Chem 7: 12/28/20 15:37 12/28/20 15:37 Labs: Abnormal lab results 12/28/20 12/28/20 12/28/20 Range/Units 15:37 15:37 15:37 RBC 2.98 L (3.65-5.03) M/mm3 Hgb 9.4 L (10.1-14.3) gm/dl MCV 107 H (79-97) fl MCHC 29 L (30-34) % RDW 25.0 H (13.2-15.2) % Plt Count 90 L (140-440) K/mm3 PT 17.5 H (12.2-14.9) Sec. INR 1.38 H (0.87-1.13) Creatinine 3.9 H (0.6-1.2) mg/dL POC Glucose (70-105) mg/dL 12/28/20 12/28/20 12/29/20 Range/Units 16:09 21:29 06:36 RBC (3.65-5.03) M/mm3 Hgb (10.1-14.3) gm/dl MCV (79-97) fl MCHC (30-34) % RDW (13.2-15.2) % Plt Count (140-440) K/mm3 PT (12.2-14.9) Sec. INR (0.87-1.13) Creatinine (0.6-1.2) mg/dL POC Glucose 215 H 251 H 325 H (70-105) mg/dL 12/29/20 Range/Units 12:11 RBC (3.65-5.03) M/mm3 Hgb (10.1-14.3) gm/dl MCV (79-97) fl MCHC (30-34) % RDW (13.2-15.2) % Plt Count (140-440) K/mm3 PT (12.2-14.9) Sec. INR (0.87-1.13) Creatinine (0.6-1.2) mg/dL POC Glucose 352 H (70-105) mg/dL Assessment and Plan 70-year-old female with end-stage renal disease multiple medical issues who is nonverbal nonambulatory with bilateral lower extremity ulcerations and early signs of gangrene of the toes with peripheral vascular disease. Try to contact family at least 4 times today to obtain consent for endovascular revascularization of the lower extremities. Discussed situation with Dr. Everett who told me that the patient may be a hospice candidate given her recent lack of eating. She will contact the family and if they choose hospice, then revascularization will be unnecessary. If hospice is declined, then revascularization would be required. Alternatively, above-knee amputations could be performed given the wounds and nonambulatory nonverbal status.
[2020-12-30] MEDS: INSULIN REGULAR, HUMAN 100 UNITS/1 ML SUB-Q SCH ×4 (01:25→18:00)
[2020-12-30] MEDS: ASCORBIC ACID 500 MG TAB PO SCH ×2 (09:05→23:23)
[2020-12-30] MEDS: METOPROLOL TARTRATE 50 MG TAB PO SCH ×2 (09:05→23:25)
[2020-12-30] MEDS: LANSOPRAZOLE 30 MG SOLUTAB FEEDTUBE SCH (09:05)
[2020-12-30] MEDS: DEXAMETHASONE 4 MG TAB PO SCH (09:05)
[2020-12-30] MEDS: CHOLECALCIFEROL (VIT D3) 5,000 UNIT TAB PO SCH (09:06)
--- NOTE | 2020-12-30 12:11 | Event Note ---
Date: 12/30/20 I was able to contact the daughter today and alerted her to the findings of the lower extremities. I discussed the situation with Dr. Tobar who wants to discuss hospice with the patient's family. I preliminarily discussed options including aggressive care versus hospice and family wants to talk to the hospitalist about this further. If patient's family decides against hospice, please contact vascular to alert them so we can make further decisions with family. If patient's family decides for hospice, continue wound care with Betadine as needed for infections.
--- NOTE | 2020-12-30 12:20 | Progress Note ---
Assessment and Plan Cultures: 12/16/2020 blood culture: No growth A/P: 70-year-old female with diabetes, hypertension, ESRD admitted to the hospital on 12/16/2020 due to altered mental status: #COVID: No acute change, respiratory status has improved since admission. ?False positive. #Bilateral lower extremity wounds, ?some wounds may be calciphylaxis: Wound care, dialysis compliance. b/l arterial dopplers of LE with diffuse disease, no focal stenosis. #ESRD on HD: Renally dose antibiotics. #Acute encephalopathy: CT head with atrophy, severe generalized atherosclerosis, no acute intracranial abnormality #Elevated LFTs: Downtrending. Abdominal ultrasound showed contracted gallbladder, no other acute abnormality. Hepatitis panel negative. #Thrombocytopenia Recs: -No acute treatment for COVID required. -If she decompensates would give dexamethasone. -Not a remdesivir candidate. -Wound care, offloading as possible Sohail Jay MD [facility] ([facility]) O: [phone] F: [phone] Subjective Date of service: 12/30/20 Principal diagnosis: change in mentation,ESRD Interval history: Afebrile, no acute change. Currently on 2 L nasal cannula. Objective - Exam Narrative Exam: Physical exam deferred to reduce risk of transmission of COVID-19. Please refer to primary team's note. - Constitutional Vitals: Vital Signs Temp Pulse Resp BP Pulse Ox 97.9 F 73 20 127/57 97 12/30/20 04:48 12/30/20 04:48 12/30/20 04:48 12/30/20 04:48 12/30/20 05:19 Temperature -Last 24 Hours Temperature 97.9 F Temperature 97.4 F - Labs CBC & Chem 7: 12/28/20 15:37 12/28/20 15:37 Labs: Abnormal lab results 12/29/20 12/29/20 12/30/20 Range/Units 18:32 20:50 01:19 POC Glucose 321 H 289 H 258 H (70-105) mg/dL 12/30/20 12/30/20 Range/Units 05:52 12:10 POC Glucose 228 H 228 H (70-105) mg/dL
[2020-12-30] MEDS: MORPHINE 2 MG/1 ML INJ IV PRN ×2 (12:38→23:39)
--- NOTE | 2020-12-30 13:04 | Progress Note ---
Assessment and Plan - Patient Problems (1) Dilated cardiomyopathy Current Visit: Yes Status: Acute Plan to address problem: Dilated cardiomyopathy with ejection fraction 30 to 35%, and mild to moderate mitral stenosis found on echocardiogram during this admission. Chronicity is undetermined at this time, will continue conservative medical management. (2) Elevated troponin Current Visit: Yes Status: Acute Plan to address problem: Nonspecific finding, patient presented initially with symptoms of hypoglycemia. Subjective Date of service: 12/30/20 Principal diagnosis: change in mentation,ESRD Interval history: Patient is alert, comfortably no acute distress. No cardiac complaints have been reported. Objective Vital Signs Temp Pulse Resp BP Pulse Ox 12/30/20 05:19 97 12/30/20 04:48 97.9 F 73 20 127/57 74 L 12/29/20 22:00 18 93 12/29/20 21:56 77 12/29/20 21:55 125/47 12/29/20 20:56 97.4 F L 74 20 83/66 91 12/29/20 20:01 96 - Physical Examination General: No Apparent Distress, Cachectic HEENT: Positive: PERRL Neck: Positive: neck supple Cardiac: Positive: Reg Rate and Rhythm Lungs: Positive: Decreased Breath Sounds Neuro: Positive: Weakness Abdomen: Positive: Soft Skin: Positive: Clear Extremities: Absent: edema
--- NOTE | 2020-12-30 13:05 | Progress Note ---
Assessment and Plan 1. ESRD: Patient is on maintenance hemodialysis three times a week, MWF schedule. Meds dosage based on GFR. Hemodialysis: 12/16, 12/18, 12/20, 12/23, 12/25, 12/27. 2. FEN: Hyperkalemia, improved. Anion-gap metabolic acidosis, improved. Monitor lytes and volume status. 3. Anemia, POA: 2/2 ESRD. Epogen with HD. 4. Acute metabolic encephalopathy, POA: CT head negative. Seen by Neuro. Monitor. 5. Sepsis, POA: S/p Abx. Bl culture negative. 6. Elevated Troponin // Dilated cardiomyopathy: 2D echo showed EF 30 to 35%. Cardiology following and recommended medical management. 7. Diabetes mellitus type 2: Accu-Cheks and SSI. 8. Bilateral lower extremity pressure sore ulcer, unstageable: S/p debridement on 12/27. Also followed by Vascular. 9. Hypotension: Improved. Monitor BP. 10. Elevated ALT / AST: Improving. 11. Thrombocytopenia: Monitor. 12. Positive JULIA: Pt need to f/w Rheum outpatient. Subjective: Patient was seen and examined at the bedside. General Appearance: General appearance: well-developed, appears stated age, not in distress, NC O2, NG tube HEENT: ATNC, pupils equal Neck: trachea midline Respiratory: ctab Heart: regular, S1S2, no murmur Abdomen: soft, bowel sounds heard, not tender Integumentary: b/l leg dressing noted Neurologic: lethargic, not following any command, not conversing Ext: no edema Hemodialysis access: L IJ tunnel catheter Subjective Date of service: 12/30/20 Principal diagnosis: change in mentation,ESRD Objective - Vital Signs Vital signs: Vital Signs - 12hr 12/30/20 12/30/20 04:48 05:19 Temperature 97.9 F Pulse Rate 73 Respiratory 20 Rate Blood Pressure 127/57 O2 Sat by Pulse 74 L 97 Oximetry - Lab 12/30/20 15:01 12/30/20 15:01 Most recent lab results Calcium 9.5 mg/dL (8.4-10.2) 12/28/20 05:48 Magnesium 2.00 mg/dL (1.7-2.3) 12/26/20 19:48 Magnesium 2.00 mg/dL (1.7-2.3) 12/26/20 19:48 Medications & Allergies - Medications Allergies/Adverse Reactions: Allergies No Known Allergies Allergy (Verified 12/11/20 17:11) Home Medications: Home Medications Medication Instructions Recorded Confirmed Last Taken Type Apixaban [Eliquis] 5 mg PO BID 12/16/20 12/16/20 Unknown History Aspirin [Adult Aspirin] 81 mg PO QDAY 12/16/20 12/16/20 Unknown History Escitalopram [Lexapro] 10 mg PO DAILY 12/16/20 12/16/20 Unknown History Gabapentin 300 mg PO QDAY 12/16/20 12/16/20 Unknown History Levemir Flextouch 6 units SUB-Q HS 12/16/20 12/22/20 Unknown History Midodrine [Proamatine] 15 mg PO TID 12/16/20 12/16/20 Unknown History NovoLOG Flexpen 6 units SUB-Q BID 12/16/20 12/22/20 Unknown History Pantoprazole [Protonix] 40 mg PO QDAY 12/16/20 12/16/20 Unknown History Vit B Comp No.3/Folic/C/Biotin 1 each PO DAILY 12/16/20 12/16/20 Unknown History [Nephro-Nola Rx Tablet] sevelamer HCL [Sevelamer HCl] 800 mg PO TID 12/16/20 12/16/20 Unknown History Active Medications: Generic Name Dose Route Start Last Admin Trade Name Freq PRN Reason Stop Dose Admin Lipase/Protease/Amylase 1 each 12/22/20 10:34 Lipase 10,500/Protease 25,000/Amylase 43,750 (Units) Dr Nagi MCKENZIE PRN PRN For Clogged Feeding Tube Ascorbic Acid 1,000 mg 12/26/20 22:00 12/30/20 09:05 Ascorbic Acid 500 Mg Tab PO 1,000 mg BID JEET Administration Cholecalciferol 5,000 unit 12/26/20 15:00 12/30/20 09:06 Cholecalciferol (Vit D3) 5,000 Unit Tab PO 5,000 unit DAILY JEET Administration Dexamethasone 6 mg 12/26/20 15:00 12/30/20 09:05 Dexamethasone 4 Mg Tab PO 01/04/21 10:01 6 mg Q24HR JEET Administration Dextrose 0 ml 12/16/20 03:40 12/18/20 08:23 Dextrose 50% In Water (25gm) 50 Ml Syringe IV 50 ml Q30MIN PRN Administration Hypoglycemia Protocol Sodium Chloride 100 mls @ 999 mls/hr 12/20/20 09:20 Nacl 0.9% IV ROSA M PRN Hypotension Insulin Human Regular 0 units 12/24/20 18:00 12/30/20 12:36 Insulin Regular, Human 100 Units/1 Ml SUB-Q 2 units Q6HR JEET Administration Protocol Lansoprazole 30 mg 12/25/20 10:00 12/30/20 09:05 Lansoprazole 30 Mg Solutab FEEDTUBE 30 mg QDAY JEET Administration Magnesium Hydroxide 30 ml 12/16/20 03:40 Magnesium Hydroxide (Mom) Oral Liqd Udc PO Q4H PRN Constipation Metoprolol Tartrate 50 mg 12/26/20 22:00 12/30/20 09:05 Metoprolol Tartrate 50 Mg Tab PO 50 mg BID JEET Administration Morphine Sulfate 0.5 mg 12/18/20 13:00 12/30/20 12:38 Morphine 2 Mg/1 Ml Inj IV 0.5 mg Q6H PRN Administration Pain, Moderate (4-6) Ondansetron HCl 4 mg 12/16/20 03:40 Ondansetron 4 Mg/2 Ml Inj IV Q8H PRN Nausea And Vomiting Simple Syrup 15 ml 12/22/20 08:19 Simple Syrup 15 Ml FEEDTUBE PRN PRN Hypoglycemia Simple Syrup 30 ml 12/22/20 08:19 Simple Syrup 15 Ml FEEDTUBE PRN PRN Hypoglycemia Sodium Bicarbonate 325 mg 12/22/20 10:34 Sodium Bicarbonate 325 Mg Tab FEEDTUBE PRN PRN For Clogged Feeding Tube Sodium Chloride 10 ml 12/16/20 10:00 12/30/20 09:06 Sodium Chloride 0.9% 10 Ml Flush Syringe IV 10 ml BID JEET Administration Sodium Chloride 10 ml 12/16/20 03:40 Sodium Chloride 0.9% 10 Ml Flush Syringe IV PRN PRN LINE FLUSH
[2020-12-30 15:28] LABS: Hematocrit 29.3 % (30.3-42.9); Hemoglobin 9.2 gm/dl (10.1-14.3); Mean Corpuscular HGB Conc 31 % (30-34); Mean Corpuscular Volume 100 fl (79-97); Platelet Count 141 K/mm3 (140-440); Red Blood Count 2.94 M/mm3 (3.65-5.03)
[2020-12-30 15:30] LABS: Red Cell Distribution Width 24.2 % (13.2-15.2)
[2020-12-30 15:33] LABS: Albumin 2.9 g/dL (3.9-5); Calcium 8.7 mg/dL (8.4-10.2)
--- NOTE | 2020-12-30 18:25 | Progress Note ---
Assessment and Plan The patient is a 70 YO female with history significant for Hypertension, Anemia, Arthritis, CAD s/p CABG and ESRD on hemodialysis (MWF) who presented to [facility] ED 12/16 with altered mental status. Patient was recently seen here in this hospital about a week ago with hyperkalemia during which she had emergent dialysis. She has had a COVID-19 vaccination. Work-up in the emergency room showed wbc 18.2, INR of 2.8, K 5.4, BUN 34, creatinine 5.6, Lactic acid of 6.6, elevated liver enzymes with AST 2838 and ALT 1353 and Troponin 0.72. Chest x-ray showed reduced lung volumes with probable bilateral atelectasis/edema. CT scan of the head showed no acute findings. Patient has been admitted with altered mental status, hyperkalemia, lactic acidosis, elevated liver enzymes and elevated troponin. Now she is tested positive for COVID-19: 12/25 Assessment and plan: --Positive COVID-19 infection -Patient tested positive for COVID-19 virus on 12/25 -Initiated on dexamethasone -Consult ID and follow recommendation -Droplet/contact isolation -Continue SPO2 monitoring -Supplemental oxygen as needed -Pulmonary hygiene -Prone to sleep -Vitamin C, vitamin D, zinc -Anticoagulation per protocol --Acute metabolic encephalopathy Possibly secondary to multiple underlying problems including possible sepsis, end-stage renal disease with hyperkalemia and elevated liver enzymes. Will monitor mental status. MRI brain without any acute infarct, neurology consulted and recommended to obtain EEG which is pending Patient remains pleasantly confused, continue supportive care and tube feeding --Suspected sepsis sepsis, POA No clear source of infection yet, completed Cefepime and Vancomycin ID following --Thrombocytopenia may be due to Sepsis. To r/o HIT She did not get any Heparin this admission but got Heparin last admission just few days earlier Obtain HIT test Consulted Hematology, discontinued all heparin and anticoagulation -- ESRD (end stage renal disease) Nephrology consulted for hemodialysis, follow BMP, avoid nephrotoxic agents --Hyperkalemia Possibly secondary to the end-stage renal disease. Patient treated with Kayexalate, insulin/glucose, sodium bicarb and will monitor potassium levels. --Elevated liver enzymes Etiology unclear, likely due to shock liver GI was consulted, liver serologies are negative Continue to trend and medical management --Elevated troponin/NSTEMI type II Possibly secondary to the underlying end-stage renal disease versus dilated cardiomyopathy versus sepsis. However we trend cardiac enzymes and request cardiology evaluation and recommendations. 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 We will monitor Accu-Cheks closely. --Bilateral lower extremity pressure sore ulcer, unstageable Dr. Odom consulted and status post debridement on 12/27 Ordered MRI of lower extremities --Elevated JULIA Antidouble-stranded DNA marker is normal Likely patient has underlying auto inflammatory disease Need further outpatient, continue to follow clinically for now --DVT prophylaxis SCD for possible HIT, Eliquis is discontinued by hematology --Full code status Daily clinical course: 12/17/20 Patient with ESRD on hemodialysis presents with altered mental status, acute metabolic encephalopathy. Also has markedly elevated AST and ALT GI consulted. Her LFTs were normal last admission just 5 days ago. 12/18/20 Patient with ESRD on hemodialysis. Rapid response called this morning. She is very lethargic, minimal responsive. Bld glucose 45mg/dl and BP 74/15. She was given 1 amp D50. Blood glucose now 163. BP up to 123/30 but MAP still under 65. Will give 500 ml Normal Saline and transfer to [facility].I discussed with Dr. Chong, Nephrology. LFTs improving though still very high. 12/19/20 Patient with ESRD on hemodialysis. Rapid response called yesterday for hypoglycemia and hypotension, so transferred to [facility]. Blood glucose normalized. BP improved. 12/20/20 Patient with ESRD on hemodialysis. Presented with altered mental status. Was transferred to [facility] on 12/18/20. Still has altered mental status, very lethargic. MRI ordered. Neurology consulted. 12/21/20 Patient with ESRD on hemodialysis. Presented with altered mental status. Was transferred to [facility] on 12/18/20. Still has altered mental status, very lethargic. MRI ordered. EEG ordered. Patient ws evaluated by Neurology. Will talk to family. 12/22/20 Patient with ESRD on hemodialysis, diabetes,hypertension. She presented with altered mental status. She has been diagnosed with sepsis(POA), hypoglycemia, hypotension, thrombocytopenia. Was transferred to [facility] on 12/18/20 because of episode of hypoglycemia and hypotension. . Still has altered mental status, very lethargic. Neurology was consulted MRI ordered. EEG ordered. I spoke to daughter Michelle Kruger yesterday and gave update. For thrombocytopenia, will obtain HIT. Consult Hematology For blood in stool, will re-consult GI. Check H/H serially Elevated LFTs likely due to shock liver, improving 12/23/20 Patient with ESRD on hemodialysis, diabetes,hypertension. She presented with altered mental status. She has been diagnosed with sepsis(POA), hypoglycemia, hypotension, thrombocytopenia. Was transferred to [facility] on 12/18/20 because of episode of hypoglycemia and hypotension. . Still has altered mental status, very lethargic. Neurology was consulted MRI ordered. EEG ordered. I spoke to daughter Michelle Kruger few days ago and gave update. Patient has thrombocytopenia, worsening 54 today. Consult Hematology. HIT ordered For blood in stool, will re-consult GI. Check H/H serially Elevated LFTs likely due to shock liver, improving. Was initially evaluated by GI patient stable to transfer back to [facility] since BP stable. 12/24/20; MRI brain yesterday showed extensive chronic changes but no acute infarct. Patient remains confused on TF. speech recommended pureed diet on prior assessment- will initiate. cont to follow 12/25/20: Ordered for Covid test, patient remains very lethargic, unable to tolerate p.o. we will continue on tube feeding. Continue supportive care. Evaluated by Dr. Odom at the bedside for bilateral lower extremity wound. Plan for debridement, continue to follow 12/26/20: Patient tested positive for COVID-19. Transfer to [facility]/Covid unit. Will place on Covid protocol, ID consult, obtain chest x-ray, initiate on dexamethasone. Patient daughter was notified about patient's positive Covid status. Continue to monitor clinically, patient remains confused. 12/27/20: Status post debridement by Dr. Odom today of bilateral lower extremities wound. MRI of lower extremities ordered. Her arterial duplex demonstrates monophasic waveforms throughout bilateral lower extremities, suggesting aortoiliac occlusive disease. She is unlikely to heal her wounds without an angiogram and improvement of her arterial flow in bilateral lower extremities. Vascular surgery consulted, patient will likely require angiogram. Follow inflammatory markers for COVID-19 pneumonia, not a candidate for remdesivir. Continue dexamethasone for now. Unable to start any anticoagu lation due to thrombocytopenia. 12/28/20; plan for CT abdomen pelvis with contrast for extensive peripheral vascular disease. Vascular surgery following for possible angiogram. Continue to follow inflammatory markers, continue dexamethasone. Continue tube feeding diet. Speech evaluated the patient and recommended to hold oral diet. Continue to follow. 12/29/20; CT abdomen pelvis tomorrow as patient will need hemodialysis within 24 hours. Remains on tube feeding, wait for repeat speech eval. Continue supportive care. 12/30/20; patient failed swallow eval with speech. had a prolong discussion with daughter about further care and she wants to continue everything possible to be done. I explained patient with bedbound status with multiple pressure sore ulcers with poor healing, ESRD on HD, CHFrEF, extensive PVD, advanced dementia now failed speech eval and nonverbal. patient with all underlying conditions has very poor chance of good quality of life and her condition may continue to de teriorate even after appropriate treatment has given. Daughter stated she understands and still wants to proceed with PEg tube for nutrition and any vascular intervention if needed. I placed consult for GI for PEG placement and updated vascular about daughter's wish. Subjective Date of service: 12/30/20 Principal diagnosis: change in mentation,ESRD Interval history: Patient seen and examined. Medical records and medication list reviewed. No acute event overnight noted by the RN. Patient remains nonverbal but more alert On tube feeding, discussed plan of care with RN and case management Objective - Exam Narrative Exam: - General Apperance Constitutional: uncomfortable, other (enlarged but nonverbal) - EENT EENT: PERRL, mucous membranes moist - Respiratory Respiratory: chest non-tender, lungs clear, rales, rhonchi - Cardiovascular Cardiovascular: regular rate, normal S1, normal S2 Extremities: no peripheral edema bilat, no clubbing, cyanosis - Gastrointestinal Gastrointestinal: normoactive bowel sounds -Extremities Extensive bilateral lower extremities pressure sore ulcer with wound dressing, POA - Integumentary Integumentary: normal - Neurologic Cranial nerve examination: PERRL, EOMI, limited neurologic exam as patient is nonverbal and does not follow commands - Constitutional Vitals: Vital Signs - 12hr 12/30/20 12/30/20 12/30/20 10:00 14:57 15:02 Temperature 97.9 F Pulse Rate 75 78 Respiratory 18 Rate Blood Pressure 129/85 143/53 O2 Sat by Pulse 93 Oximetry O2 Sat by Pulse 100 Oximetry [ Anterior Bilateral Throughout] O2 Sat by Pulse 99 Oximetry [ Bilateral Bases ] O2 Sat by Pulse 99 Oximetry [ Posterior Bilateral Throughout] 12/30/20 12/30/20 12/30/20 15:15 15:30 15:45 Temperature Pulse Rate 80 84 81 Respiratory Rate Blood Pressure 135/58 130/60 129/32 O2 Sat by Pulse Oximetry O2 Sat by Pulse Oximetry [ Anterior Bilateral Throughout] O2 Sat by Pulse Oximetry [ Bilateral Bases ] O2 Sat by Pulse Oximetry [ Posterior Bilateral Throughout] 12/30/20 12/30/20 12/30/20 16:00 16:15 16:30 Temperature Pulse Rate 84 86 85 Respiratory Rate Blood Pressure 121/36 131/48 116/33 O2 Sat by Pulse Oximetry O2 Sat by Pulse Oximetry [ Anterior Bilateral Throughout] O2 Sat by Pulse Oximetry [ Bilateral Bases ] O2 Sat by Pulse Oximetry [ Posterior Bilateral Throughout] 12/30/20 12/30/20 12/30/20 16:45 17:00 17:15 Temperature Pulse Rate 87 86 86 Respiratory Rate Blood Pressure 126/45 116/37 144/70 O2 Sat by Pulse Oximetry O2 Sat by Pulse Oximetry [ Anterior Bilateral Throughout] O2 Sat by Pulse Oximetry [ Bilateral Bases ] O2 Sat by Pulse Oximetry [ Posterior Bilateral Throughout] 12/30/20 12/30/20 12/30/20 17:30 17:45 18:02 Temperature Pulse Rate 92 H 92 H 84 Respiratory Rate Blood Pressure 125/46 128/48 148/46 O2 Sat by Pulse Oximetry O2 Sat by Pulse Oximetry [ Anterior Bilateral Throughout] O2 Sat by Pulse Oximetry [ Bilateral Bases ] O2 Sat by Pulse Oximetry [ Posterior Bilateral Throughout] 12/30/20 18:08 Temperature 98.1 F Pulse Rate 90 Respiratory 20 Rate Blood Pressure 114/56 O2 Sat by Pulse Oximetry O2 Sat by Pulse 100 Oximetry [ Anterior Bilateral Throughout] O2 Sat by Pulse 99 Oximetry [ Bilateral Bases ] O2 Sat by Pulse 99 Oximetry [ Posterior Bilateral Throughout] - Labs CBC & Chem 7: 12/30/20 15:01 12/30/20 15:01 Labs: Abnormal lab results 12/29/20 12/29/20 12/30/20 Range/Units 18:32 20:50 01:19 WBC (4.5-11.0) K/mm3 RBC (3.65-5.03) M/mm3 Hgb (10.1-14.3) gm/dl Hct (30.3-42.9) % MCV (79-97) fl RDW (13.2-15.2) % Sodium (137-145) mmol/L Chloride (98-107) mmol/L BUN (7-17) mg/dL Creatinine (0.6-1.2) mg/dL Glucose (65-100) mg/dL POC Glucose 321 H 289 H 258 H (70-105) mg/dL Total Bilirubin (0.1-1.2) mg/dL AST (5-40) units/L ALT (7-56) units/L Alkaline Phosphatase (35-129) units/L Total Protein (6.3-8.2) g/dL Albumin (3.9-5) g/dL 12/30/20 12/30/20 12/30/20 Range/Units 05:52 12:10 15:01 WBC 15.2 H (4.5-11.0) K/mm3 RBC 2.94 L (3.65-5.03) M/mm3 Hgb 9.2 L (10.1-14.3) gm/dl Hct 29.3 L (30.3-42.9) % MCV 100 H (79-97) fl RDW 24.2 H (13.2-15.2) % Sodium (137-145) mmol/L Chloride (98-107) mmol/L BUN (7-17) mg/dL Creatinine (0.6-1.2) mg/dL Glucose (65-100) mg/dL POC Glucose 228 H 228 H (70-105) mg/dL Total Bilirubin (0.1-1.2) mg/dL AST (5-40) units/L ALT (7-56) units/L Alkaline Phosphatase (35-129) units/L Total Protein (6.3-8.2) g/dL Albumin (3.9-5) g/dL 12/30/20 12/30/20 Range/Units 15:01 17:47 WBC (4.5-11.0) K/mm3 RBC (3.65-5.03) M/mm3 Hgb (10.1-14.3) gm/dl Hct (30.3-42.9) % MCV (79-97) fl RDW (13.2-15.2) % Sodium 135 L (137-145) mmol/L Chloride 93.3 L (98-107) mmol/L BUN 80 H (7-17) mg/dL Creatinine 5.5 H (0.6-1.2) mg/dL Glucose 193 H (65-100) mg/dL POC Glucose 198 H (70-105) mg/dL Total Bilirubin 1.50 H (0.1-1.2) mg/dL AST 65 H (5-40) units/L ALT 133 H (7-56) units/L Alkaline Phosphatase 268 H (35-129) units/L Total Protein 5.8 L (6.3-8.2) g/dL Albumin 2.9 L (3.9-5) g/dL HEART Score - HEART Score Troponin: Troponin T 0.735 ng/mL (0.00-0.029) H* 12/26/20 19:48
[2020-12-31] MEDS: INSULIN REGULAR, HUMAN 100 UNITS/1 ML SUB-Q SCH ×4 (00:33→18:00)
--- NOTE | 2020-12-31 09:34 | Event Note ---
Date: 12/31/20 Contacted patient's daughter to explain situation. Patient's daughter declines amputations. Patient's daughter wants to proceed with endovascular revascularization if possible. Explained situation to daughter, and explained that this is somewhat medically futile giving her other issues. Daughter understands but still wishes to proceed. Patient had Covid positivity on 12/24/2020. She is on 4 L nasal cannula. Once oxygen can be titrated off and once at least 10 to 14 days have passed, then can consider endovascular revascularization.
[2020-12-31] MEDS: DEXAMETHASONE 4 MG TAB PO SCH (10:42)
[2020-12-31] MEDS: CHOLECALCIFEROL (VIT D3) 5,000 UNIT TAB PO SCH (10:42)
[2020-12-31] MEDS: METOPROLOL TARTRATE 50 MG TAB PO SCH ×2 (10:42→22:57)
[2020-12-31] MEDS: LANSOPRAZOLE 30 MG SOLUTAB FEEDTUBE SCH (10:42)
[2020-12-31] MEDS: ASCORBIC ACID 500 MG TAB PO SCH ×2 (10:43→22:58)
--- NOTE | 2020-12-31 11:12 | Progress Note ---
Assessment and Plan Cultures: 12/16/2020 blood culture: No growth A/P: 70-year-old female with diabetes, hypertension, ESRD admitted to the hospital on 12/16/2020 due to altered mental status: #COVID: No acute change, respiratory status has improved since admission. ?False positive. #Bilateral lower extremity wounds, ?some wounds may be calciphylaxis: Wound care, dialysis compliance. b/l arterial dopplers of LE with diffuse disease, no focal stenosis. #ESRD on HD: Renally dose antibiotics. #Acute encephalopathy: CT head with atrophy, severe generalized atherosclerosis, no acute intracranial abnormality #Elevated LFTs: Downtrending. Abdominal ultrasound showed contracted gallbladder, no other acute abnormality. Hepatitis panel negative. #Thrombocytopenia Recs: -On dexamethasone fro COVD, complete 10 days. -Not a remdesivir candidate. -Wound care, offloading as possible Sohail Jay MD [facility] O: [phone] F: [phone] Subjective Date of service: 12/31/20 Principal diagnosis: change in mentation,ESRD Interval history: Patient afebrile, whtie count increased today to 15. Family declining amputation and wishes to proceed with revascularization. Objective - Exam Narrative Exam: Physical exam deferred to reduce risk of transmission of COVID-19. Please refer to primary team's note. - Constitutional Vitals: Vital Signs Temp Pulse Resp BP Pulse Ox 97 F L 84 22 134/43 92 12/31/20 07:14 12/31/20 07:14 12/31/20 07:14 12/31/20 07:14 12/31/20 09:43 Temperature -Last 24 Hours Temperature 97 F Temperature 96 F Temperature 98.3 F Temperature 98.3 F Temperature 97.2 F Temperature 98.1 F Temperature 97.9 F - Labs CBC & Chem 7: 12/30/20 15:01 12/30/20 15:01 Labs: Abnormal lab results 12/30/20 12/30/20 12/30/20 Range/Units 12:10 15:01 15:01 WBC 15.2 H (4.5-11.0) K/mm3 RBC 2.94 L (3.65-5.03) M/mm3 Hgb 9.2 L (10.1-14.3) gm/dl Hct 29.3 L (30.3-42.9) % MCV 100 H (79-97) fl RDW 24.2 H (13.2-15.2) % Sodium 135 L (137-145) mmol/L Chloride 93.3 L (98-107) mmol/L BUN 80 H (7-17) mg/dL Creatinine 5.5 H (0.6-1.2) mg/dL Glucose 193 H (65-100) mg/dL POC Glucose 228 H (70-105) mg/dL Total Bilirubin 1.50 H (0.1-1.2) mg/dL AST 65 H (5-40) units/L ALT 133 H (7-56) units/L Alkaline Phosphatase 268 H (35-129) units/L Total Protein 5.8 L (6.3-8.2) g/dL Albumin 2.9 L (3.9-5) g/dL 12/30/20 12/31/20 12/31/20 Range/Units 17:47 00:18 06:15 WBC (4.5-11.0) K/mm3 RBC (3.65-5.03) M/mm3 Hgb (10.1-14.3) gm/dl Hct (30.3-42.9) % MCV (79-97) fl RDW (13.2-15.2) % Sodium (137-145) mmol/L Chloride (98-107) mmol/L BUN (7-17) mg/dL Creatinine (0.6-1.2) mg/dL Glucose (65-100) mg/dL POC Glucose 198 H 214 H 197 H (70-105) mg/dL Total Bilirubin (0.1-1.2) mg/dL AST (5-40) units/L ALT (7-56) units/L Alkaline Phosphatase (35-129) units/L Total Protein (6.3-8.2) g/dL Albumin (3.9-5) g/dL
[2020-12-31] MEDS ORDERED: MIDODRINE 5 MG TAB PO ONE ×3 (11:23→15:00)
--- NOTE | 2020-12-31 11:40 | Progress Note ---
Assessment and Plan - Patient Problems (1) Dilated cardiomyopathy Current Visit: Yes Status: Acute Plan to address problem: Medical therapy for dilated cardiomyopathy and chronic systolic heart failure. For fluid overload, patient is on regular dialysis. Due to ongoing respiratory distress, patient may benefit from a chest x-ray and transfer to stepdown for closer monitoring. I will discuss with the hospitalist. (2) Elevated troponin Current Visit: Yes Status: Acute Subjective Date of service: 12/31/20 Principal diagnosis: change in mentation,ESRD Interval history: Patient appears obtunded, more dyspneic today, vital signs are stable with a heart rate of 84 and a blood pressure of 136 systolic. Objective Vital Signs Temp Pulse Resp BP BP Pulse Ox Pulse Ox 12/31/20 09:43 92 12/31/20 09:17 87 12/31/20 07:48 90 12/31/20 07:14 97 F L 84 22 134/43 87 12/31/20 05:50 96 F L 92 H 20 116/48 90 12/31/20 05:46 98.3 F 42 L 18 87 12/31/20 04:57 84 80 L 12/31/20 04:46 98.3 F 42 L 18 56 L 12/30/20 23:25 95 H 119/62 12/30/20 22:00 96 12/30/20 20:49 97.2 F L 92 H 18 119/62 85 12/30/20 18:08 98.1 F 90 20 114/56 100 12/30/20 18:02 84 148/46 12/30/20 17:45 92 H 128/48 12/30/20 17:30 92 H 125/46 12/30/20 17:15 86 144/70 12/30/20 17:00 86 116/37 12/30/20 16:45 87 126/45 12/30/20 16:30 85 116/33 12/30/20 16:15 86 131/48 12/30/20 16:00 84 121/36 12/30/20 15:45 81 129/32 12/30/20 15:30 84 130/60 12/30/20 15:15 80 135/58 12/30/20 15:02 78 143/53 12/30/20 14:57 97.9 F 75 18 129/85 100 Pulse Ox Pulse Ox 12/31/20 09:43 12/31/20 09:17 12/31/20 07:48 12/31/20 07:14 12/31/20 05:50 12/31/20 05:46 12/31/20 04:57 12/31/20 04:46 12/30/20 23:25 12/30/20 22:00 12/30/20 20:49 12/30/20 18:08 99 99 12/30/20 18:02 12/30/20 17:45 12/30/20 17:30 12/30/20 17:15 12/30/20 17:00 12/30/20 16:45 12/30/20 16:30 12/30/20 16:15 12/30/20 16:00 12/30/20 15:45 12/30/20 15:30 12/30/20 15:15 12/30/20 15:02 12/30/20 14:57 99 99 - Physical Examination General: Cachectic, Other (Obtunded, with mild respiratory distress) HEENT: Positive: PERRL Neck: Positive: neck supple Cardiac: Positive: Reg Rate and Rhythm Lungs: Positive: Decreased Breath Sounds Neuro: Positive: Weakness Abdomen: Positive: Soft Skin: Positive: Clear Extremities: Absent: edema - Labs and Meds Cardiac Enzymes 12/30/20 Range/Units 15:01 AST 65 H (5-40) units/L CBC 12/30/20 Range/Units 15:01 WBC 15.2 H (4.5-11.0) K/mm3 RBC 2.94 L (3.65-5.03) M/mm3 Hgb 9.2 L (10.1-14.3) gm/dl Hct 29.3 L (30.3-42.9) % Plt Count 141 (140-440) K/mm3 Comprehensive Metabolic Panel 12/30/20 Range/Units 15:01 Sodium 135 L (137-145) mmol/L Potassium 4.9 (3.6-5.0) mmol/L Chloride 93.3 L (98-107) mmol/L Carbon Dioxide 22 (22-30) mmol/L BUN 80 H (7-17) mg/dL Creatinine 5.5 H (0.6-1.2) mg/dL Glucose 193 H (65-100) mg/dL Calcium 8.7 (8.4-10.2) mg/dL AST 65 H (5-40) units/L ALT 133 H (7-56) units/L Alkaline Phosphatase 268 H (35-129) units/L Total Protein 5.8 L (6.3-8.2) g/dL Albumin 2.9 L (3.9-5) g/dL
--- NOTE | 2020-12-31 12:37 | XRay Report ---
CHEST 1 VIEW INDICATION: sob. COMPARISON: 12/17/2015 FINDINGS: Support devices: Left IJ permacath remains in adequate position. A nasogastric tube has been inserted which is followed to the mid stomach but the distal tip is not included. Heart: Stable mild cardiomegaly. Lungs/Pleura: Scattered bilateral pulmonary opacities are identified which appear increased since the previous exam. Although this could represent congestive changes, viral infection is not excluded. No pleural effusion or pneumothorax. Additional findings: None. IMPRESSION: Stable cardiomegaly. Bilateral lung opacities as described above. Signer Name: Heath Raymundo Jr, MD Signed: 12/31/2020 12:33 PM Workstation Name: [id number]
--- NOTE | 2020-12-31 13:42 | Progress Note ---
Assessment and Plan 1. ESRD: Patient is on maintenance hemodialysis three times a week, MWF schedule. Meds dosage based on GFR. Hemodialysis: 12/16, 12/18, 12/20, 12/23, 12/25, 12/27, 12/30. 2. FEN: Hyperkalemia, improved. Anion-gap metabolic acidosis, improved. Monitor lytes and volume status. 3. Anemia, POA: 2/2 ESRD. Epogen with HD. 4. Acute metabolic encephalopathy, POA: CT head negative. Seen by Neuro. Monitor. 5. Sepsis, POA: S/p Abx. Bl culture negative. 6. Elevated Troponin // Dilated cardiomyopathy: 2D echo showed EF 30 to 35%. Cardiology following and recommended medical management. 7. Diabetes mellitus type 2: Accu-Cheks and SSI. 8. Bilateral lower extremity pressure sore ulcer, unstageable: S/p debridement on 12/27. Also followed by Vascular. 9. Hypotension: Midodrine. Monitor BP. 10. Elevated ALT / AST: Improving. 11. Thrombocytopenia: Monitor. 12. Positive JULIA: Pt need to f/w Rheum outpatient. Prognosis is slim. Subjective: Patient was seen and examined at the bedside. General Appearance: General appearance: well-developed, appears stated age, not in distress, NC O2, NG tube HEENT: ATNC, pupils equal Neck: trachea midline Respiratory: decreased breath sounds Heart: regular, S1S2, no murmur Abdomen: soft, bowel sounds heard, not tender Integumentary: b/l leg dressing noted Neurologic: lethargic, not following any command, not conversing Ext: no edema Hemodialysis access: L IJ tunnel catheter Subjective Date of service: 12/31/20 Principal diagnosis: change in mentation,ESRD Objective - Vital Signs Vital signs: Vital Signs - 12hr 12/31/20 12/31/20 12/31/20 04:46 04:57 05:46 Temperature 98.3 F 98.3 F Pulse Rate 42 L 84 42 L Respiratory 18 18 Rate Blood Pressure 42/21 Blood Pressure 42/21 [Right] O2 Sat by Pulse 56 L 80 L 87 Oximetry 12/31/20 12/31/20 12/31/20 05:50 07:14 07:48 Temperature 96 F L 97 F L Pulse Rate 92 H 84 Respiratory 20 22 Rate Blood Pressure Blood Pressure 116/48 134/43 [Right] O2 Sat by Pulse 90 87 90 Oximetry 12/31/20 12/31/20 09:17 09:43 Temperature Pulse Rate Respiratory Rate Blood Pressure Blood Pressure [Right] O2 Sat by Pulse 87 92 Oximetry - Lab 12/30/20 15:01 12/30/20 15:01 Most recent lab results Calcium 8.7 mg/dL (8.4-10.2) 12/30/20 15:01 Magnesium 2.00 mg/dL (1.7-2.3) 12/26/20 19:48 Magnesium 2.00 mg/dL (1.7-2.3) 12/26/20 19:48 Medications & Allergies - Medications Allergies/Adverse Reactions: Allergies No Known Allergies Allergy (Verified 12/11/20 17:11) Home Medications: Home Medications Medication Instructions Recorded Confirmed Last Taken Type Apixaban [Eliquis] 5 mg PO BID 12/16/20 12/16/20 Unknown History Aspirin [Adult Aspirin] 81 mg PO QDAY 12/16/20 12/16/20 Unknown History Escitalopram [Lexapro] 10 mg PO DAILY 12/16/20 12/16/20 Unknown History Gabapentin 300 mg PO QDAY 12/16/20 12/16/20 Unknown History Levemir Flextouch 6 units SUB-Q HS 12/16/20 12/22/20 Unknown History Midodrine [Proamatine] 15 mg PO TID 12/16/20 12/16/20 Unknown History NovoLOG Flexpen 6 units SUB-Q BID 12/16/20 12/22/20 Unknown History Pantoprazole [Protonix] 40 mg PO QDAY 12/16/20 12/16/20 Unknown History Vit B Comp No.3/Folic/C/Biotin 1 each PO DAILY 12/16/20 12/16/20 Unknown History [Nephro-Nola Rx Tablet] sevelamer HCL [Sevelamer HCl] 800 mg PO TID 12/16/20 12/16/20 Unknown History Active Medications: Generic Name Dose Route Start Last Admin Trade Name Freq PRN Reason Stop Dose Admin Lipase/Protease/Amylase 1 each 12/22/20 10:34 Lipase 10,500/Protease 25,000/Amylase 43,750 (Units) Dr Lazar FEEDTUBE PRN PRN For Clogged Feeding Tube Ascorbic Acid 1,000 mg 12/26/20 22:00 12/31/20 10:43 Ascorbic Acid 500 Mg Tab PO 1,000 mg BID JEET Administration Cholecalciferol 5,000 unit 12/26/20 15:00 12/31/20 10:42 Cholecalciferol (Vit D3) 5,000 Unit Tab PO 5,000 unit DAILY JEET Administration Dexamethasone 6 mg 12/26/20 15:00 12/31/20 10:42 Dexamethasone 4 Mg Tab PO 01/04/21 10:01 6 mg Q24HR JEET Administration Dextrose 0 ml 12/16/20 03:40 12/18/20 08:23 Dextrose 50% In Water (25gm) 50 Ml Syringe IV 50 ml Q30MIN PRN Administration Hypoglycemia Protocol Sodium Chloride 100 mls @ 999 mls/hr 12/20/20 09:20 Nacl 0.9% IV ROSA M PRN Hypotension Insulin Human Regular 0 units 12/24/20 18:00 12/31/20 06:40 Insulin Regular, Human 100 Units/1 Ml SUB-Q 1 units Q6HR JEET Administration Protocol Lansoprazole 30 mg 12/25/20 10:00 12/31/20 10:42 Lansoprazole 30 Mg Solutab FEEDTUBE 30 mg QDAY JEET Administration Magnesium Hydroxide 30 ml 12/16/20 03:40 Magnesium Hydroxide (Mom) Oral Liqd Udc PO Q4H PRN Constipation Metoprolol Tartrate 50 mg 12/26/20 22:00 12/31/20 10:42 Metoprolol Tartrate 50 Mg Tab PO 50 mg BID JEET Administration Midodrine 15 mg 12/31/20 18:00 Midodrine 5 Mg Tab PO 0600,1200,1800 [facility] Morphine Sulfate 0.5 mg 12/18/20 13:00 12/30/20 23:39 Morphine 2 Mg/1 Ml Inj IV 0.5 mg Q6H PRN Administration Pain, Moderate (4-6) Ondansetron HCl 4 mg 12/16/20 03:40 Ondansetron 4 Mg/2 Ml Inj IV Q8H PRN Nausea And Vomiting Simple Syrup 15 ml 12/22/20 08:19 Simple Syrup 15 Ml FEEDTUBE PRN PRN Hypoglycemia Simple Syrup 30 ml 12/22/20 08:19 Simple Syrup 15 Ml FEEDTUBE PRN PRN Hypoglycemia Sodium Bicarbonate 325 mg 12/22/20 10:34 Sodium Bicarbonate 325 Mg Tab FEEDTUBE PRN PRN For Clogged Feeding Tube Sodium Chloride 10 ml 12/16/20 10:00 12/31/20 10:42 Sodium Chloride 0.9% 10 Ml Flush Syringe IV 10 ml BID JEET Administration Sodium Chloride 10 ml 12/16/20 03:40 Sodium Chloride 0.9% 10 Ml Flush Syringe IV PRN PRN LINE FLUSH
[2020-12-31] MEDS ORDERED: MIDODRINE 5 MG TAB PO SCH (14:00)
--- NOTE | 2020-12-31 15:35 | Progress Note ---
Assessment and Plan The patient is a 70 YO female with history significant for Hypertension, Anemia, Arthritis, CAD s/p CABG and ESRD on hemodialysis (MWF) who presented to [facility] ED 12/16 with altered mental status. Patient was recently seen here in this hospital about a week ago with hyperkalemia during which she had emergent dialysis. She has had a COVID-19 vaccination. Work-up in the emergency room showed wbc 18.2, INR of 2.8, K 5.4, BUN 34, creatinine 5.6, Lactic acid of 6.6, elevated liver enzymes with AST 2838 and ALT 1353 and Troponin 0.72. Chest x-ray showed reduced lung volumes with probable bilateral atelectasis/edema. CT scan of the head showed no acute findings. Patient has been admitted with altered mental status, hyperkalemia, lactic acidosis, elevated liver enzymes and elevated troponin. Now she is tested positive for COVID-19: 12/25 Assessment and plan: --Positive COVID-19 infection -Patient tested positive for COVID-19 virus on 12/25 -Initiated on dexamethasone -Consult ID and follow recommendation -Droplet/contact isolation -Continue SPO2 monitoring -Supplemental oxygen as needed -Pulmonary hygiene -Prone to sleep -Vitamin C, vitamin D, zinc -Anticoagulation per protocol --Acute hypoxic respiratory failure, likely due to COVID-19 pneumonia and underlying CHF Patient was resting on 2 L nasal cannula but currently placed on 8 L We will consult pulmonary critical care, scheduled nebulizer breathing treatment, empiric steroid Wean off O2 as tolerated --Hypotension, now improved BP dropped to around 40s overnight We will initiate home dose of midodrine Continue to follow clinically --Acute metabolic encephalopathy Possibly secondary to multiple underlying problems including possible sepsis, end-stage renal disease with hyperkalemia and elevated liver enzymes. Will monitor mental status. MRI brain without any acute infarct, neurology consulted and recommended to obtain EEG which is pending Patient remains pleasantly confused, continue supportive care and tube feeding --Suspected sepsis sepsis, POA No clear source of infection yet, completed Cefepime and Vancomycin ID following --Thrombocytopenia may be due to Sepsis. To r/o HIT She did not get any Heparin this admission but got Heparin last admission just few days earlier Obtain HIT test Consulted Hematology, discontinued all heparin and anticoagulation -- ESRD (end stage renal disease) Nephrology consulted for hemodialysis, follow BMP, avoid nephrotoxic agents --Hyperkalemia Possibly secondary to the end-stage renal disease. Patient treated with Kayexalate, insulin/glucose, sodium bicarb and will monitor potassium levels. --Elevated liver enzymes Etiology unclear, likely due to shock liver GI was consulted, liver serologies are negative Continue to trend and medical management --Elevated troponin/NSTEMI type II Possibly secondary to the underlying end-stage renal disease versus dilated cardiomyopathy versus sepsis. However we trend cardiac enzymes and request cardiology evaluation and recommendations. 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 We will monitor Accu-Cheks closely. --Bilateral lower extremity pressure sore ulcer, unstageable Dr. Odom consulted and status post debridement on 12/27 Ordered MRI of lower extremities --Elevated JULIA Antidouble-stranded DNA marker is normal Likely patient has underlying auto inflammatory disease Need further outpatient, continue to follow clinically for now --DVT prophylaxis SCD for possible HIT, Eliquis is discontinued by hematology --Full code status Daily clinical course: 12/17/20 Patient with ESRD on hemodialysis presents with altered mental status, acute metabolic encephalopathy. Also has markedly elevated AST and ALT GI consulted. Her LFTs were normal last admission just 5 days ago. 12/18/20 Patient with ESRD on hemodialysis. Rapid response called this morning. She is very lethargic, minimal responsive. Bld glucose 45mg/dl and BP 74/15. She was given 1 amp D50. Blood glucose now 163. BP up to 123/30 but MAP still under 65. Will give 500 ml Normal Saline and transfer to [facility].I discussed with Dr. Chong, Nephrology. LFTs improving though still very high. 12/19/20 Patient with ESRD on hemodialysis. Rapid response called yesterday for hypoglycemia and hypotension, so transferred to [facility]. Blood glucose normalized. BP improved. 12/20/20 Patient with ESRD on hemodialysis. Presented with altered mental stat us. Was transferred to [facility] on 12/18/20. Still has altered mental status, very lethargic. MRI ordered. Neurology consulted. 12/21/20 Patient with ESRD on hemodialysis. Presented with altered mental st atus. Was transferred to [facility] on 12/18/20. Still has altered mental status, very lethargic. MRI ordered. EEG ordered. Patient ws evaluated by Neurology. Will talk to family. 12/22/20 Patient with ESRD on hemodialysis, diabetes,hypertension. She presented with altered mental status. She has been diagnosed with sepsis(POA), hypoglycemia, hypotension, thrombocytopenia. Was transferred to [facility] on 12/18/20 because of episode of hypoglycemia and hypotension. . Still has altered mental status, very lethargic. Neurology was consulted MRI ordered. EEG ordered. I spoke to daughter Michelle Kruger yesterday and gave update. For thrombocytopenia, will obtain HIT. Consult Hematology For blood in stool, will re-consult GI. Check H/H serially Elevated LFTs likely due to shock liver, improving 12/23/20 Patient with ESRD on hemodialysis, diabetes,hypertension. She presented with altered mental status. She has been diagnosed with sepsis(POA), hypoglycemia, hypotension, thrombocytopenia. Was transferred to [facility] on 12/18/20 because of episode of hypoglycemia and hypotension. . Still has altered mental status, very lethargic. Neurology was consulted MRI ordered. EEG ordered. I spoke to daughter Michelle Kruger few days ago and gave update. Patient has thrombocytopenia, worsening 54 today. Consult Hematology. HIT ordered For blood in stool, will re-consult GI. Check H/H serially Elevated LFTs likely due to shock liver, improving. Was initially evaluated by GI patient stable to transfer back to [facility] since BP stable. 12/24/20; MRI brain yesterday showed extensive chronic changes but no acute infarct. Patient remains confused on TF. speech recommended pureed diet on prior assessment- will initiate. cont to follow 12/25/20: Ordered for Covid test, patient remains very lethargic, unable to tolerate p.o. we will continue on tube feeding. Continue supportive care. Evaluated by Dr. Odom at the bedside for bilateral lower extremity wound. Plan for debridement, continue to follow 12/26/20: Patient tested positive for COVID-19. Transfer to [facility]/Covid unit. Will place on Covid protocol, ID consult, obtain chest x-ray, initiate on dexamethasone. Patient daughter was notified about patient's positive Covid status. Continue to monitor clinically, patient remains confused. 12/27/20: Status post debridement by Dr. Odom today of bilateral lower extremities wound. MRI of lower extremities ordered. Her arterial duplex demonstrates monophasic waveforms throughout bilateral lower extremities, suggesting aortoiliac occlusive disease. She is unlikely to heal her wounds without an angiogram and improvement of her arterial flow in bilateral lower extremities. Vascular surgery consulted, patient will likely require angiogram. Follow inflammatory markers for COVID-19 pneumonia, not a candidate for remdesivir. Continue dexamethasone for now. Unable to start any anticoagulation due to thrombocytopenia. 12/28/20; plan for CT abdomen pelvis with contrast for extensive peripheral vascular disease. Vascular surgery following for possible angiogram. Continue to follow inflammatory markers, continue dexamethasone. Continue tube feeding diet. Speech evaluated the patient and recommended to hold oral diet. Continue to follow. 12/29/20; CT abdomen pelvis tomorrow as patient will need hemodialysis within 24 hours. Remains on tube feeding, wait for repeat speech eval. Continue supportive care. 12/30/20; patient failed swallow eval with speech. had a prolong discussion with daughter about further care and she wants to continue everything possible to be done. I explained patient with bedbound status with multiple pressure sore ulcers with poor healing, ESRD on HD, CHFrEF, extensive PVD, advanced dementia now failed speech eval and nonverbal. patient with all underlying conditions has very poor chance of good quality of life and her condition may continue to deteriorate even after appropriate treatment has given. Daughter stated she understands and still wants to proceed with PEg tube for nutrition and any vascular intervention if needed. I placed consult for GI for PEG placement and updated vascular about daughter's wish. 12/31/20: Patient noted to have more oxygen requirement since this morning, also had significantly low blood pressure SBP 140s. Patient had dialysis yesterday. Will order a stat chest x-ray, will initiate patient home medicine of midodrine. Discussed with daughter thoroughly about change in condition and is she is still wants to continue full CODE STATUS. Patient currently on 8 L nasal cannula, consulted pulmonary critical care. Subjective Date of service: 12/31/20 Principal diagnosis: change in mentation,ESRD Interval history: Patient seen and examined. Medical records and medication list reviewed. No acute event overnight noted by the RN. Patient remains nonverbal but remains alert Oxygen requirement has increased since morning and placed on 8 L nasal cannula BP was marine steward around low 40s discussed plan of care with RN and case management Updated daughter, patient to continue as full code Objective - Exam Narrative Exam: - General Apperance Constitutional: uncomfortable, other (alert but nonverbal) - EENT EENT: PERRL, mucous membranes moist - Respiratory Respiratory: chest non-tender, lungs clear, rales, rhonchi - Cardiovascular Cardiovascular: regular rate, normal S1, normal S2 Extremities: no peripheral edema bilat, no clubbing, cyanosis - Gastrointestinal Gastrointestinal: normoactive bowel sounds -Extremities Extensive bilateral lower extremities pressure sore ulcer with wound dressing, POA - Integumentary Integumentary: normal - Neurologic Cranial nerve examination: PERRL, EOMI, limited neurologic exam as patient is nonverbal and does not follow commands - Constitutional Vitals: Vital Signs - 12hr 12/31/20 12/31/20 12/31/20 04:46 04:57 05:46 Temperature 98.3 F 98.3 F Pulse Rate 42 L 84 42 L Respiratory 18 18 Rate Blood Pressure 42/21 Blood Pressure 42/21 [Right] O2 Sat by Pulse 56 L 80 L 87 Oximetry 12/31/20 12/31/20 12/31/20 05:50 07:14 07:48 Temperature 96 F L 97 F L Pulse Rate 92 H 84 Respiratory 20 22 Rate Blood Pressure Blood Pressure 116/48 134/43 [Right] O2 Sat by Pulse 90 87 90 Oximetry 12/31/20 12/31/20 09:17 09:43 Temperature Pulse Rate Respiratory Rate Blood Pressure Blood Pressure [Right] O2 Sat by Pulse 87 92 Oximetry - Labs CBC & Chem 7: 12/30/20 15:01 12/30/20 15:01 Labs: Abnormal lab results 12/30/20 12/30/20 12/30/20 Range/Units 15:01 15:01 17:47 WBC 15.2 H (4.5-11.0) K/mm3 RBC 2.94 L (3.65-5.03) M/mm3 Hgb 9.2 L (10.1-14.3) gm/dl Hct 29.3 L (30.3-42.9) % MCV 100 H (79-97) fl RDW 24.2 H (13.2-15.2) % Sodium 135 L (137-145) mmol/L Chloride 93.3 L (98-107) mmol/L BUN 80 H (7-17) mg/dL Creatinine 5.5 H (0.6-1.2) mg/dL Glucose 193 H (65-100) mg/dL POC Glucose 198 H (70-105) mg/dL Total Bilirubin 1.50 H (0.1-1.2) mg/dL AST 65 H (5-40) units/L ALT 133 H (7-56) units/L Alkaline Phosphatase 268 H (35-129) units/L Total Protein 5.8 L (6.3-8.2) g/dL Albumin 2.9 L (3.9-5) g/dL 12/31/20 12/31/20 12/31/20 Range/Units 00:18 06:15 12:20 WBC (4.5-11.0) K/mm3 RBC (3.65-5.03) M/mm3 Hgb (10.1-14.3) gm/dl Hct (30.3-42.9) % MCV (79-97) fl RDW (13.2-15.2) % Sodium (137-145) mmol/L Chloride (98-107) mmol/L BUN (7-17) mg/dL Creatinine (0.6-1.2) mg/dL Glucose (65-100) mg/dL POC Glucose 214 H 197 H 293 H (70-105) mg/dL Total Bilirubin (0.1-1.2) mg/dL AST (5-40) units/L ALT (7-56) units/L Alkaline Phosphatase (35-129) units/L Total Protein (6.3-8.2) g/dL Albumin (3.9-5) g/dL HEART Score - HEART Score Troponin: Troponin T 0.735 ng/mL (0.00-0.029) H* 12/26/20 19:48
--- NOTE | 2020-12-31 16:55 | Gastroenterology Consultation ---
History of Present Illness - Reason for Consult Consult date: 12/31/20 PEG placement Requesting physician: TOMMIE ESCOBEDO - History of Present Illness This is a 70 yo female with pmh of CAD s/p CABG, ESRD on HD, and Cardiomyopathy admitted on 12/16/2020 for AMS. Initially noted to have severely elevated liver enzymes and hyperkalemia. Work-up in the emergency room showed wbc 18.2, INR of 2.8, K 5.4, BUN 34, creatinine 5.6, Lactic acid of 6.6, elevated liver enzymes with AST 2838 and ALT 1353 and Troponin 0.72. Chest x-ray showed reduced lung volumes with probable bilateral atelectasis/edema. CT scan of the head showed no acute findings. Patient has been admitted with altered mental status, hyperkalemia, lactic acidosis, elevated liver enzymes and elevated troponin. Now she is tested positive for COVID-19: 08. GI initially consulted for elevated liver enzymes, which were thought to be due to shock liver and they trended down. Today, GI reconsulted for PEG tube placement. Patient remains nonverbal altered with encephalopathy and failed swallow test with speech. Currently with NG tube for tube feeds. Also on higher O2 requirement with NC at 4 L today. Medication list reviewed. Past History Past Medical History: diabetes, dialysis, ESRD, hypertension Past Surgical History: Other (Left arm AV fistula, Left chest Vas Cath.) Social history: no significant social history Family history: no significant family history Medications and Allergies Allergies Allergy/AdvReac Type Severity Reaction Status Date / Time No Known Allergies Allergy Verified 12/11/20 17:11 Home Medications Medication Instructions Recorded Confirmed Last Taken Type Apixaban [Eliquis] 5 mg PO BID 12/16/20 12/16/20 Unknown History Aspirin [Adult Aspirin] 81 mg PO QDAY 12/16/20 12/16/20 Unknown History Escitalopram [Lexapro] 10 mg PO DAILY 12/16/20 12/16/20 Unknown History Gabapentin 300 mg PO QDAY 12/16/20 12/16/20 Unknown History Levemir Flextouch 6 units SUB-Q HS 12/16/20 12/22/20 Unknown History Midodrine [Proamatine] 15 mg PO TID 12/16/20 12/16/20 Unknown History NovoLOG Flexpen 6 units SUB-Q BID 12/16/20 12/22/20 Unknown History Pantoprazole [Protonix] 40 mg PO QDAY 12/16/20 12/16/20 Unknown History Vit B Comp No.3/Folic/C/Biotin 1 each PO DAILY 12/16/20 12/16/20 Unknown History [Nephro-Nola Rx Tablet] sevelamer HCL [Sevelamer HCl] 800 mg PO TID 12/16/20 12/16/20 Unknown History Active Meds: Active Medications Lipase/Protease/Amylase (Lipase 10,500/Protease 25,000/Amylase 43,750 (Units) Dr Lazar) 1 each FEEDTUBE PRN PRN PRN Reason: For Clogged Feeding Tube Ascorbic Acid (Ascorbic Acid 500 Mg Tab) 1,000 mg PO BID [facility] Last Admin: 12/31/20 10:43 Dose: 1,000 mg Documented by: Cholecalciferol (Cholecalciferol (Vit D3) 5,000 Unit Tab) 5,000 unit PO DAILY [facility] Last Admin: 12/31/20 10:42 Dose: 5,000 unit Documented by: Dexamethasone (Dexamethasone 4 Mg Tab) 6 mg PO Q24HR [facility] Stop: 01/04/21 10:01 Last Admin: 12/31/20 10:42 Dose: 6 mg Documented by: Dextrose (Dextrose 50% In Water (25gm) 50 Ml Syringe) 0 ml IV Q30MIN PRN; Protocol PRN Reason: Hypoglycemia Last Admin: 12/18/20 08:23 Dose: 50 ml Documented by: Sodium Chloride (Nacl 0.9%) 100 mls @ 999 mls/hr IV ROSA M PRN PRN Reason: Hypotension Insulin Human Regular (Insulin Regular, Human 100 Units/1 Ml) 0 units SUB-Q Q6HR [facility]; Protocol Last Admin: 12/31/20 12:00 Dose: 3 units Documented by: Lansoprazole (Lansoprazole 30 Mg Solutab) 30 mg FEEDTUBE QDAY [facility] Last Admin: 12/31/20 10:42 Dose: 30 mg Documented by: Magnesium Hydroxide (Magnesium Hydroxide (Mom) Oral Liqd Udc) 30 ml PO Q4H PRN PRN Reason: Constipation Metoprolol Tartrate (Metoprolol Tartrate 50 Mg Tab) 50 mg PO BID [facility] Last Admin: 12/31/20 10:42 Dose: 50 mg Documented by: Midodrine (Midodrine 5 Mg Tab) 15 mg PO 0600,1200,1800 [facility] Morphine Sulfate (Morphine 2 Mg/1 Ml Inj) 0.5 mg IV Q6H PRN PRN Reason: Pain, Moderate (4-6) Last Admin: 12/30/20 23:39 Dose: 0.5 mg Documented by: Ondansetron HCl (Ondansetron 4 Mg/2 Ml Inj) 4 mg IV Q8H PRN PRN Reason: Nausea And Vomiting Simple Syrup (Simple Syrup 15 Ml) 15 ml FEEDTUBE PRN PRN PRN Reason: Hypoglycemia Simple Syrup (Simple Syrup 15 Ml) 30 ml FEEDTUBE PRN PRN PRN Reason: Hypoglycemia Sodium Bicarbonate (Sodium Bicarbonate 325 Mg Tab) 325 mg FEEDTUBE PRN PRN PRN Reason: For Clogged Feeding Tube Sodium Chloride (Sodium Chloride 0.9% 10 Ml Flush Syringe) 10 ml IV BID [facility] Last Admin: 12/31/20 10:42 Dose: 10 ml Documented by: Sodium Chloride (Sodium Chloride 0.9% 10 Ml Flush Syringe) 10 ml IV PRN PRN PRN Reason: LINE FLUSH Review of Systems - Review of Systems ROS unobtainable: due to mental status Exam - Constitutional Vital Signs: Temp Pulse Resp BP Pulse Ox 97 F L 84 22 134/43 92 12/31/20 07:14 12/31/20 07:14 12/31/20 07:14 12/31/20 07:14 12/31/20 09:43 General appearance: no acute distress - Respiratory Respiratory effort: labored - Cardiovascular Rhythm: regular Heart Sounds: Present: S1 & S2 - Gastrointestinal General gastrointestinal: Present: soft, non-tender, non-distended, normal bowel sounds - Integumentary Integumentary: Present: clear - Neurologic Neurological: disoriented, other (nonverbal, confused) - Labs CBC & Chem 7: 12/30/20 15:01 12/31/20 17:48 Lab Results: Laboratory Results - last 24 hr 12/22/20 12/30/20 12/31/20 16:37 17:47 00:18 POC Glucose 198 H 214 H Serotonin Release Assay See scanned results 12/31/20 12/31/20 06:15 12:20 POC Glucose 197 H 293 H Serotonin Release Assay Assessment and Plan This is a 70 yo female with pmh of CAD s/p CABG, ESRD on HD, and Cardiomyopathy admitted on 12/16/2020 for AMS. Now being treated for sepsis with COVID pneumonia. GI initially consulted for elevated liver enzymes, which were thought to be due to shock liver and they trended down. Today, GI reconsulted for PEG tube placement. # Dysphagia # Encephalopathy - failed speech eval for swallow due to signs of risk for aspiration. Rec - patient currently not stable per respiratory standpoint requiring NC at 4 L for EGD with PEG/sedation. - please call us back when patient is more clinically stable for sedation. Patient will need cardiology and pulmonary clearance. Currently off anticoagulation due to thrombocytopenia. Patient was on home eliquis for afib. - spoke with family, daughter regarding PEG tube including nature of the procedure and risks of potential complications. She would like to proceed. - recommend NG/dobhoff for feeding in the meantime. - will sign off but call us back when stable for PEG.
[2020-12-31] MEDS: MIDODRINE 5 MG TAB PO SCH (18:00)
--- NOTE | 2020-12-31 21:06 | Consultation ---
History of Present Illness Consult date: 12/31/20 Reason for consult: dyspnea, hypoxemia History of present illness: The patient is a 70 YO female with history significant for Hypertension, Anemia, Arthritis, CAD s/p CABG and ESRD on hemodialysis (MWF) who presented to [facility] ED 12/16 with altered mental status. Patient was recently seen here in this hospital about a week ago with hyperkalemia during which she had emergent dialysis. She has had a COVID-19 vaccination. Work-up in the emergency room showed wbc 18.2, INR of 2.8, K 5.4, BUN 34, creatinine 5.6, Lactic acid of 6.6, elevated liver enzymes with AST 2838 and ALT 1353 and Troponin 0.72. Chest x-ray showed reduced lung volumes with probable bilateral atelectasis/edema. CT scan of the head showed no acute findings. Patient has been admitted with altered mental status, hyperkalemia, lactic acidosis, elevated liver enzymes and elevated troponin. Now she is tested positive for COVID-19: 12/25 Patient is asleep. She is on high flow O2. 6 litres via nasal canula, and O2 saturation running 92%. She is not in acute respiratory distress. She is afebrile. Blood pressure of 134/43. Leukocytosis present.WBC 15.2. Hg of 9.2, Hct 29.3. PLT 141. CXR 12/16/20 showed reduced lung volumes with probable bilateral atelectasis/edema Repeat chest xray 12/31/20 reported cattered bilateral pulmonary opacities are identified which appear increased since the previous exam. Although this could represent congestive changes, viral infection is not exclu ded. No pleural effusion or pneumothorax. Medication: on Decadron and Prevacid. Past History Past Medical History: diabetes, dialysis, ESRD, hypertension Past Surgical History: Other (Left arm AV fistula, Left chest Vas Cath.) Social history: no significant social history Family history: no significant family history Medications and Allergies Allergies Allergy/AdvReac Type Severity Reaction Status Date / Time No Known Allergies Allergy Verified 12/11/20 17:11 Home Medications Medication Instructions Recorded Confirmed Last Taken Type Apixaban [Eliquis] 5 mg PO BID 12/16/20 12/16/20 Unknown History Aspirin [Adult Aspirin] 81 mg PO QDAY 12/16/20 12/16/20 Unknown History Escitalopram [Lexapro] 10 mg PO DAILY 12/16/20 12/16/20 Unknown History Gabapentin 300 mg PO QDAY 12/16/20 12/16/20 Unknown History Levemir Flextouch 6 units SUB-Q HS 12/16/20 12/22/20 Unknown History Midodrine [Proamatine] 15 mg PO TID 12/16/20 12/16/20 Unknown History NovoLOG Flexpen 6 units SUB-Q BID 12/16/20 12/22/20 Unknown History Pantoprazole [Protonix] 40 mg PO QDAY 12/16/20 12/16/20 Unknown History Vit B Comp No.3/Folic/C/Biotin 1 each PO DAILY 12/16/20 12/16/20 Unknown History [Nephro-Nola Rx Tablet] sevelamer HCL [Sevelamer HCl] 800 mg PO TID 12/16/20 12/16/20 Unknown History Active Meds: Active Medications Lipase/Protease/Amylase (Lipase 10,500/Protease 25,000/Amylase 43,750 (Units) Dr Lazar) 1 each FEEDTUBE PRN PRN PRN Reason: For Clogged Feeding Tube Ascorbic Acid (Ascorbic Acid 500 Mg Tab) 1,000 mg PO BID [facility] Last Admin: 12/31/20 10:43 Dose: 1,000 mg Documented by: Cholecalciferol (Cholecalciferol (Vit D3) 5,000 Unit Tab) 5,000 unit PO DAILY [facility] Last Admin: 12/31/20 10:42 Dose: 5,000 unit Documented by: Dexamethasone (Dexamethasone 4 Mg Tab) 6 mg PO Q24HR JEET Stop: 01/04/21 10:01 Last Admin: 12/31/20 10:42 Dose: 6 mg Documented by: Dextrose (Dextrose 50% In Water (25gm) 50 Ml Syringe) 0 ml IV Q30MIN PRN; Protocol PRN Reason: Hypoglycemia Last Admin: 12/18/20 08:23 Dose: 50 ml Documented by: Sodium Chloride (Nacl 0.9%) 100 mls @ 999 mls/hr IV ROSA M PRN PRN Reason: Hypotension Insulin Human Regular (Insulin Regular, Human 100 Units/1 Ml) 0 units SUB-Q Q6HR JEET; Protocol Last Admin: 12/31/20 18:00 Dose: Not Given Documented by: Lansoprazole (Lansoprazole 30 Mg Solutab) 30 mg FEEDTUBE QDAY [facility] Last Admin: 12/31/20 10:42 Dose: 30 mg Documented by: Magnesium Hydroxide (Magnesium Hydroxide (Mom) Oral Liqd Udc) 30 ml PO Q4H PRN PRN Reason: Constipation Metoprolol Tartrate (Metoprolol Tartrate 50 Mg Tab) 50 mg PO BID [facility] Last Admin: 12/31/20 10:42 Dose: 50 mg Documented by: Midodrine (Midodrine 5 Mg Tab) 15 mg PO 0600,1200,1800 [facility] Last Admin: 12/31/20 18:00 Dose: 15 mg Documented by: Morphine Sulfate (Morphine 2 Mg/1 Ml Inj) 0.5 mg IV Q6H PRN PRN Reason: Pain, Moderate (4-6) Last Admin: 12/30/20 23:39 Dose: 0.5 mg Documented by: Ondansetron HCl (Ondansetron 4 Mg/2 Ml Inj) 4 mg IV Q8H PRN PRN Reason: Nausea And Vomiting Simple Syrup (Simple Syrup 15 Ml) 15 ml FEEDTUBE PRN PRN PRN Reason: Hypoglycemia Simple Syrup (Simple Syrup 15 Ml) 30 ml FEEDTUBE PRN PRN PRN Reason: Hypoglycemia Sodium Bicarbonate (Sodium Bicarbonate 325 Mg Tab) 325 mg FEEDTUBE PRN PRN PRN Reason: For Clogged Feeding Tube Sodium Chloride (Sodium Chloride 0.9% 10 Ml Flush Syringe) 10 ml IV BID [facility] Last Admin: 12/31/20 10:42 Dose: 10 ml Documented by: Sodium Chloride (Sodium Chloride 0.9% 10 Ml Flush Syringe) 10 ml IV PRN PRN PRN Reason: LINE FLUSH Review of Systems All systems: negative Physical Examination Vital signs: Vital Signs Temp Pulse Resp BP Pulse Ox 98.3 F 97 H 23 125/55 98 12/16/20 01:03 12/16/20 01:03 12/16/20 01:03 12/16/20 01:03 12/16/20 01:03 General appearance: no acute distress, asleep Eyes: non-icteric ENT: oropharynx moist Neck: supple Ascultation: Bilateral: rhonchi Cardiovascular: regular rate and rhythm Gastrointestinal: normoactive bowel sounds, soft, non-tender Integumentary: normal Extremities: no cyanosis Musculoskeletal: no deformities Gait: poor gait, other other (patient asleep so unable to assess) other (patient asleep so unable to assess) Results - Laboratory Findings CBC and BMP: 01/01/21 05:18 12/31/20 17:48 PT/INR, D-dimer PT 17.5 Sec. (12.2-14.9) H 12/28/20 15:37 INR 1.38 (0.87-1.13) H 12/28/20 15:37 D-Dimer 1585.97 ng/mlDDU (0-234) H 12/26/20 19:48 Abnormal lab findings: Abnormal Labs 12/16/20 12/16/20 12/16/20 00:38 00:57 00:57 WBC 18.2 H RBC 3.13 L Hgb 9.4 L Hct MCV 100 H MCHC RDW 22.7 H Plt Count Lymph % (Auto) 8.0 L Amelia % (Auto) 7.8 H Amelia # (Auto) 1.4 H Seg Neutrophils % 83.4 H Seg Neutrophils # 15.2 H PT 29.9 H INR 2.80 H APTT 39.9 H D-Dimer Sodium Potassium Chloride Carbon Dioxide BUN Creatinine Glucose POC Glucose 116 H Hemoglobin A1c Lactic Acid Calcium Ferritin Total Bilirubin Direct Bilirubin AST ALT Alkaline Phosphatase Lactate Dehydrogenase CK-MB (CK-2) CK-MB (CK-2) Rel Index Troponin T C-Reactive Protein Total Protein Albumin LDL Cholesterol Direct HDL Cholesterol TSH Free T4 Acetaminophen JULIA Screen Coronavirus (PCR) 12/16/20 12/16/20 12/16/20 00:57 00:57 00:57 WBC RBC Hgb Hct MCV MCHC RDW Plt Count Lymph % (Auto) Amelia % (Auto) Amelia # (Auto) Seg Neutrophils % Seg Neutrophils # PT INR APTT D-Dimer Sodium 136 L Potassium 5.4 H Chloride 94.2 L Carbon Dioxide 18 L D BUN 34 H Creatinine 5.6 H Glucose 108 H POC Glucose Hemoglobin A1c Lactic Acid 8.10 H* Calcium Ferritin Total Bilirubin 1.30 H Direct Bilirubin AST 2838 H ALT 1353 H Alkaline Phosphatase 186 H Lactate Dehydrogenase CK-MB (CK-2) 5.1 H CK-MB (CK-2) Rel Index 6.0 H Troponin T 0.720 H* C-Reactive Protein Total Protein Albumin 3.2 L LDL Cholesterol Direct 34 L HDL Cholesterol 64 H TSH 6.720 H Free T4 1.54 H Acetaminophen JULIA Screen Coronavirus (PCR) 12/16/20 12/16/20 12/16/20 01:45 05:48 05:48 WBC RBC Hgb Hct MCV MCHC RDW Plt Count Lymph % (Auto) Amelia % (Auto) Amelia # (Auto) Seg Neutrophils % Seg Neutrophils # PT INR APTT D-Dimer Sodium Potassium Chloride Carbon Dioxide BUN Creatinine Glucose POC Glucose Hemoglobin A1c Lactic Acid 6.60 H* 6.00 H* Calcium Ferritin Total Bilirubin Direct Bilirubin AST ALT Alkaline Phosphatase Lactate Dehydrogenase CK-MB (CK-2) CK-MB (CK-2) Rel Index Troponin T 0.731 H* C-Reactive Protein Total Protein Albumin LDL Cholesterol Direct HDL Cholesterol TSH Free T4 Acetaminophen JULIA Screen Coronavirus (PCR) 12/16/20 12/16/20 12/16/20 05:48 05:48 07:57 WBC RBC Hgb Hct MCV MCHC RDW Plt Count Lymph % (Auto) Amelia % (Auto) Amelia # (Auto) Seg Neutrophils % Seg Neutrophils # PT INR APTT D-Dimer Sodium Potassium Chloride Carbon Dioxide BUN Creatinine Glucose POC Glucose 115 H 118 H Hemoglobin A1c Lactic Acid Calcium Ferritin Total Bilirubin Direct Bilirubin AST ALT Alkaline Phosphatase Lactate Dehydrogenase CK-MB (CK-2) CK-MB (CK-2) Rel Index Troponin T C-Reactive Protein Total Protein Albumin LDL Cholesterol Direct HDL Cholesterol TSH Free T4 Acetaminophen 5.0 L JULIA Screen Coronavirus (PCR) 12/16/20 12/16/20 12/16/20 10:35 11:30 16:12 WBC RBC Hgb Hct MCV MCHC RDW Plt Count Lymph % (Auto) Amelia % (Auto) Amelia # (Auto) Seg Neutrophils % Seg Neutrophils # PT INR APTT D-Dimer Sodium Potassium Chloride Carbon Dioxide BUN Creatinine Glucose POC Glucose 124 H 115 H Hemoglobin A1c Lactic Acid 2.40 H* Calcium Ferritin Total Bilirubin Direct Bilirubin AST ALT Alkaline Phosphatase Lactate Dehydrogenase CK-MB (CK-2) CK-MB (CK-2) Rel Index Troponin T C-Reactive Protein Total Protein Albumin LDL Cholesterol Direct HDL Cholesterol TSH Free T4 Acetaminophen JULIA Screen Coronavirus (PCR) 12/16/20 12/17/20 12/17/20 21:00 05:42 05:42 WBC 12.0 H RBC 2.52 L Hgb 7.6 L Hct 24.6 L D MCV 98 H MCHC RDW 22.7 H Plt Count 137 L Lymph % (Auto) 9.7 L Amelia % (Auto) 8.3 H Amelia # (Auto) 1.0 H Seg Neutrophils % 78.2 H Seg Neutrophils # 9.4 H PT 26.3 H INR 2.36 H APTT D-Dimer Sodium Potassium Chloride Carbon Dioxide BUN Creatinine Glucose POC Glucose 149 H Hemoglobin A1c Lactic Acid Calcium Ferritin Total Bilirubin Direct Bilirubin AST ALT Alkaline Phosphatase Lactate Dehydrogenase CK-MB (CK-2) CK-MB (CK-2) Rel Index Troponin T C-Reactive Protein Total Protein Albumin LDL Cholesterol Direct HDL Cholesterol TSH Free T4 Acetaminophen JULIA Screen Coronavirus (PCR) 12/17/20 12/17/20 12/17/20 05:42 05:42 05:42 WBC RBC Hgb Hct MCV MCHC RDW Plt Count Lymph % (Auto) Amelia % (Auto) Amelia # (Auto) Seg Neutrophils % Seg Neutrophils # PT INR APTT D-Dimer Sodium Potassium Chloride Carbon Dioxide BUN 28 H Creatinine 4.5 H Glucose 176 H POC Glucose Hemoglobin A1c Lactic Acid Calcium Ferritin Total Bilirubin Direct Bilirubin 0.6 H AST 1744 H ALT 1938 H Alkaline Phosphatase 158 H Lactate Dehydrogenase CK-MB (CK-2) CK-MB (CK-2) Rel Index Troponin T C-Reactive Protein Total Protein 5.7 L Albumin 2.7 L LDL Cholesterol Direct HDL Cholesterol TSH Free T4 Acetaminophen JULIA Screen Positive H Coronavirus (PCR) 12/17/20 12/17/20 12/17/20 09:54 12:30 16:32 WBC RBC Hgb Hct MCV MCHC RDW Plt Count Lymph % (Auto) Amelia % (Auto) Amelia # (Auto) Seg Neutrophils % Seg Neutrophils # PT INR APTT D-Dimer Sodium Potassium Chloride Carbon Dioxide BUN Creatinine Glucose POC Glucose 150 H 154 H 146 H Hemoglobin A1c Lactic Acid Calcium Ferritin Total Bilirubin Direct Bilirubin AST ALT Alkaline Phosphatase Lactate Dehydrogenase CK-MB (CK-2) CK-MB (CK-2) Rel Index Troponin T C-Reactive Protein Total Protein Albumin LDL Cholesterol Direct HDL Cholesterol TSH Free T4 Acetaminophen JULIA Screen Coronavirus (PCR) 12/17/20 12/18/20 12/18/20 20:26 05:57 05:57 WBC 14.8 H RBC 2.70 L Hgb 8.2 L Hct 27.5 L MCV 102 H MCHC RDW 22.5 H Plt Count 87 L Lymph % (Auto) Amelia % (Auto) Amelia # (Auto) Seg Neutrophils % Seg Neutrophils # PT INR APTT D-Dimer Sodium Potassium Chloride Carbon Dioxide 18 L D BUN 36 H Creatinine 6.0 H Glucose 63 L POC Glucose 107 H Hemoglobin A1c Lactic Acid Calcium Ferritin Total Bilirubin 1.30 H Direct Bilirubin AST 1403 H ALT 1839 H Alkaline Phosphatase 149 H Lactate Dehydrogenase CK-MB (CK-2) CK-MB (CK-2) Rel Index Troponin T C-Reactive Protein Total Protein 5.6 L Albumin 2.6 L LDL Cholesterol Direct HDL Cholesterol TSH Free T4 Acetaminophen JULIA Screen Coronavirus (PCR) 12/18/20 12/18/20 12/18/20 05:57 08:03 08:14 WBC RBC Hgb Hct MCV MCHC RDW Plt Count Lymph % (Auto) Amelia % (Auto) Amelia # (Auto) Seg Neutrophils % Seg Neutrophils # PT INR APTT D-Dimer Sodium Potassium Chloride Carbon Dioxide BUN Creatinine Glucose POC Glucose 45 L 163 H Hemoglobin A1c 7.1 H Lactic Acid Calcium Ferritin Total Bilirubin Direct Bilirubin AST ALT Alkaline Phosphatase Lactate Dehydrogenase CK-MB (CK-2) CK-MB (CK-2) Rel Index Troponin T C-Reactive Protein Total Protein Albumin LDL Cholesterol Direct HDL Cholesterol TSH Free T4 Acetaminophen JULIA Screen Coronavirus (PCR) 12/18/20 12/18/20 12/18/20 10:04 11:40 18:00 WBC RBC Hgb Hct MCV MCHC RDW Plt Count Lymph % (Auto) Amelia % (Auto) Amelia # (Auto) Seg Neutrophils % Seg Neutrophils # PT INR APTT D-Dimer Sodium Potassium Chloride Carbon Dioxide BUN Creatinine Glucose POC Glucose 129 H 128 H 161 H Hemoglobin A1c Lactic Acid Calcium Ferritin Total Bilirubin Direct Bilirubin AST ALT Alkaline Phosphatase Lactate Dehydrogenase CK-MB (CK-2) CK-MB (CK-2) Rel Index Troponin T C-Reactive Protein Total Protein Albumin LDL Cholesterol Direct HDL Cholesterol TSH Free T4 Acetaminophen JULIA Screen Coronavirus (PCR) 12/18/20 12/19/20 12/19/20 21:40 01:26 05:49 WBC RBC Hgb Hct MCV MCHC RDW Plt Count Lymph % (Auto) Amelia % (Auto) Amelia # (Auto) Seg Neutrophils % Seg Neutrophils # PT INR APTT D-Dimer Sodium Potassium Chloride Carbon Dioxide BUN Creatinine Glucose POC Glucose 138 H 148 H 136 H Hemoglobin A1c Lactic Acid Calcium Ferritin Total Bilirubin Direct Bilirubin AST ALT Alkaline Phosphatase Lactate Dehydrogenase CK-MB (CK-2) CK-MB (CK-2) Rel Index Troponin T C-Reactive Protein Total Protein Albumin LDL Cholesterol Direct HDL Cholesterol TSH Free T4 Acetaminophen JULIA Screen Coronavirus (PCR) 12/19/20 12/19/20 12/19/20 06:59 06:59 08:38 WBC 12.1 H RBC 2.76 L Hgb 8.5 L Hct 27.8 L MCV 101 H MCHC RDW 22.3 H Plt Count 82 L Lymph % (Auto) Amelia % (Auto) Amelia # (Auto) Seg Neutrophils % Seg Neutrophils # PT INR APTT D-Dimer Sodium 147 H Potassium Chloride Carbon Dioxide BUN 21 H Creatinine 3.9 H Glucose 144 H POC Glucose 139 H Hemoglobin A1c Lactic Acid Calcium Ferritin Total Bilirubin 1.70 H Direct Bilirubin 1.2 H AST 871 H ALT 1552 H Alkaline Phosphatase 146 H Lactate Dehydrogenase CK-MB (CK-2) CK-MB (CK-2) Rel Index Troponin T C-Reactive Protein Total Protein 5.6 L Albumin 2.7 L LDL Cholesterol Direct HDL Cholesterol TSH Free T4 Acetaminophen JULIA Screen Coronavirus (PCR) 12/19/20 12/19/20 12/19/20 11:45 16:01 22:03 WBC RBC Hgb Hct MCV MCHC RDW Plt Count Lymph % (Auto) Amelia % (Auto) Amelia # (Auto) Seg Neutrophils % Seg Neutrophils # PT INR APTT D-Dimer Sodium Potassium Chloride Carbon Dioxide BUN Creatinine Glucose POC Glucose 138 H 141 H 121 H Hemoglobin A1c Lactic Acid Calcium Ferritin Total Bilirubin Direct Bilirubin AST ALT Alkaline Phosphatase Lactate Dehydrogenase CK-MB (CK-2) CK-MB (CK-2) Rel Index Troponin T C-Reactive Protein Total Protein Albumin LDL Cholesterol Direct HDL Cholesterol TSH Free T4 Acetaminophen JULIA Screen Coronavirus (PCR) 12/20/20 12/20/20 12/20/20 03:18 05:46 05:48 WBC RBC Hgb Hct MCV MCHC RDW Plt Count Lymph % (Auto) Amelia % (Auto) Amelia # (Auto) Seg Neutrophils % Seg Neutrophils # PT INR APTT D-Dimer Sodium 146 H Potassium Chloride 109.6 H Carbon Dioxide 21 L BUN 32 H Creatinine 5.5 H Glucose 124 H POC Glucose 142 H 125 H Hemoglobin A1c Lactic Acid Calcium Ferritin Total Bilirubin Direct Bilirubin AST ALT Alkaline Phosphatase Lactate Dehydrogenase CK-MB (CK-2) CK-MB (CK-2) Rel Index Troponin T C-Reactive Protein Total Protein Albumin LDL Cholesterol Direct HDL Cholesterol TSH Free T4 Acetaminophen JULIA Screen Coronavirus (PCR) 12/20/20 12/20/20 12/20/20 10:26 12:32 12:38 WBC RBC 2.64 L Hgb 8.1 L Hct 26.2 L MCV 99 H MCHC RDW 22.8 H Plt Count 82 L Lymph % (Auto) Amelia % (Auto) Amelia # (Auto) Seg Neutrophils % Seg Neutrophils # PT INR APTT D-Dimer Sodium Potassium Chloride Carbon Dioxide BUN Creatinine Glucose POC Glucose 139 H 136 H Hemoglobin A1c Lactic Acid Calcium Ferritin Total Bilirubin Direct Bilirubin AST ALT Alkaline Phosphatase Lactate Dehydrogenase CK-MB (CK-2) CK-MB (CK-2) Rel Index Troponin T C-Reactive Protein Total Protein Albumin LDL Cholesterol Direct HDL Cholesterol TSH Free T4 Acetaminophen JULIA Screen Coronavirus (PCR) 12/20/20 12/20/20 12/20/20 16:05 20:00 23:23 WBC RBC Hgb Hct MCV MCHC RDW Plt Count Lymph % (Auto) Amelia % (Auto) Amelia # (Auto) Seg Neutrophils % Seg Neutrophils # PT INR APTT D-Dimer Sodium Potassium Chloride Carbon Dioxide BUN Creatinine Glucose POC Glucose 123 H 116 H 112 H Hemoglobin A1c Lactic Acid Calcium Ferritin Total Bilirubin Direct Bilirubin AST ALT Alkaline Phosphatase Lactate Dehydrogenase CK-MB (CK-2) CK-MB (CK-2) Rel Index Troponin T C-Reactive Protein Total Protein Albumin LDL Cholesterol Direct HDL Cholesterol TSH Free T4 Acetaminophen JULIA Screen Coronavirus (PCR) 12/21/20 12/21/20 12/22/20 08:38 11:21 03:28 WBC RBC Hgb Hct MCV MCHC RDW Plt Count Lymph % (Auto) Amelia % (Auto) Amelia # (Auto) Seg Neutrophils % Seg Neutrophils # PT INR APTT D-Dimer Sodium Potassium Chloride Carbon Dioxide BUN Creatinine Glucose POC Glucose 127 H 117 H 125 H Hemoglobin A1c Lactic Acid Calcium Ferritin Total Bilirubin Direct Bilirubin AST ALT Alkaline Phosphatase Lactate Dehydrogenase CK-MB (CK-2) CK-MB (CK-2) Rel Index Troponin T C-Reactive Protein Total Protein Albumin LDL Cholesterol Direct HDL Cholesterol TSH Free T4 Acetaminophen JULIA Screen Coronavirus (PCR) 12/22/20 12/22/20 12/22/20 05:06 05:06 07:42 WBC RBC 2.82 L Hgb 8.8 L Hct 28.6 L MCV 101 H MCHC RDW 23.8 H Plt Count 67 L Lymph % (Auto) Amelia % (Auto) Amelia # (Auto) Seg Neutrophils % Seg Neutrophils # PT INR APTT D-Dimer Sodium Potassium Chloride Carbon Dioxide BUN 30 H Creatinine 5.1 H Glucose 123 H POC Glucose 117 H Hemoglobin A1c Lactic Acid Calcium 8.3 L Ferritin Total Bilirubin 2.70 H Direct Bilirubin AST 150 H ALT 644 H Alkaline Phosphatase 148 H Lactate Dehydrogenase CK-MB (CK-2) CK-MB (CK-2) Rel Index Troponin T C-Reactive Protein Total Protein 5.6 L Albumin 2.3 L LDL Cholesterol Direct HDL Cholesterol TSH Free T4 Acetaminophen JULIA Screen Coronavirus (PCR) 12/22/20 12/22/20 12/22/20 11:45 16:22 16:37 WBC RBC Hgb 9.4 L Hct MCV MCHC RDW Plt Count Lymph % (Auto) Amelia % (Auto) Amelia # (Auto) Seg Neutrophils % Seg Neutrophils # PT INR APTT D-Dimer Sodium Potassium Chloride Carbon Dioxide BUN Creatinine Glucose POC Glucose 113 H 115 H Hemoglobin A1c Lactic Acid Calcium Ferritin Total Bilirubin Direct Bilirubin AST ALT Alkaline Phosphatase Lactate Dehydrogenase CK-MB (CK-2) CK-MB (CK-2) Rel Index Troponin T C-Reactive Protein Total Protein Albumin LDL Cholesterol Direct HDL Cholesterol TSH Free T4 Acetaminophen JULIA Screen Coronavirus (PCR) 12/22/20 12/22/20 12/23/20 19:52 23:35 04:17 WBC RBC Hgb Hct MCV MCHC RDW Plt Count Lymph % (Auto) Amelia % (Auto) Amelia # (Auto) Seg Neutrophils % Seg Neutrophils # PT INR APTT D-Dimer Sodium Potassium Chloride Carbon Dioxide BUN Creatinine Glucose POC Glucose 119 H 143 H 170 H Hemoglobin A1c Lactic Acid Calcium Ferritin Total Bilirubin Direct Bilirubin AST ALT Alkaline Phosphatase Lactate Dehydrogenase CK-MB (CK-2) CK-MB (CK-2) Rel Index Troponin T C-Reactive Protein Total Protein Albumin LDL Cholesterol Direct HDL Cholesterol TSH Free T4 Acetaminophen JULIA Screen Coronavirus (PCR) 12/23/20 12/23/20 12/23/20 06:06 07:31 08:14 WBC RBC 3.03 L Hgb 8.8 L 9.6 L Hct 28.1 L MCV 100 H MCHC RDW 25.2 H Plt Count 54 L Lymph % (Auto) Amelia % (Auto) Amelia # (Auto) Seg Neutrophils % Seg Neutrophils # PT INR APTT D-Dimer Sodium Potassium Chloride Carbon Dioxide BUN Creatinine Glucose POC Glucose 174 H Hemoglobin A1c Lactic Acid Calcium Ferritin Total Bilirubin Direct Bilirubin AST ALT Alkaline Phosphatase Lactate Dehydrogenase CK-MB (CK-2) CK-MB (CK-2) Rel Index Troponin T C-Reactive Protein Total Protein Albumin LDL Cholesterol Direct HDL Cholesterol TSH Free T4 Acetaminophen JULIA Screen Coronavirus (PCR) 12/23/20 12/23/20 12/23/20 14:56 16:49 23:44 WBC RBC Hgb 9.1 L Hct 29.6 L MCV MCHC RDW Plt Count Lymph % (Auto) Amelia % (Auto) Amelia # (Auto) Seg Neutrophils % Seg Neutrophils # PT INR APTT D-Dimer Sodium Potassium Chloride Carbon Dioxide BUN Creatinine Glucose POC Glucose 212 H 223 H Hemoglobin A1c Lactic Acid Calcium Ferritin Total Bilirubin Direct Bilirubin AST ALT Alkaline Phosphatase Lactate Dehydrogenase CK-MB (CK-2) CK-MB (CK-2) Rel Index Troponin T C-Reactive Protein Total Protein Albumin LDL Cholesterol Direct HDL Cholesterol TSH Free T4 Acetaminophen JULIA Screen Coronavirus (PCR) 12/24/20 12/24/20 12/24/20 12:30 18:32 Unknown WBC RBC Hgb Hct MCV MCHC RDW Plt Count Lymph % (Auto) Amelia % (Auto) Amelia # (Auto) Seg Neutrophils % Seg Neutrophils # PT INR APTT D-Dimer Sodium Potassium Chloride Carbon Dioxide BUN Creatinine Glucose POC Glucose 297 H 309 H Hemoglobin A1c Lactic Acid Calcium Ferritin Total Bilirubin Direct Bilirubin AST ALT Alkaline Phosphatase Lactate Dehydrogenase CK-MB (CK-2) CK-MB (CK-2) Rel Index Troponin T C-Reactive Protein Total Protein Albumin LDL Cholesterol Direct HDL Cholesterol TSH Free T4 Acetaminophen JULIA Screen Coronavirus (PCR) Positive A 12/25/20 12/25/20 12/25/20 00:07 07:02 15:30 WBC RBC Hgb Hct MCV MCHC RDW Plt Count Lymph % (Auto) Amelia % (Auto) Amelia # (Auto) Seg Neutrophils % Seg Neutrophils # PT INR APTT D-Dimer Sodium Potassium Chloride Carbon Dioxide BUN 24 H Creatinine 3.2 H Glucose 227 H POC Glucose 190 H 188 H Hemoglobin A1c Lactic Acid Calcium Ferritin Total Bilirubin Direct Bilirubin AST ALT Alkaline Phosphatase Lactate Dehydrogenase CK-MB (CK-2) CK-MB (CK-2) Rel Index Troponin T C-Reactive Protein Total Protein Albumin LDL Cholesterol Direct HDL Cholesterol TSH Free T4 Acetaminophen JULIA Screen Coronavirus (PCR) 12/25/20 12/25/20 12/26/20 16:20 22:19 06:24 WBC RBC Hgb Hct MCV MCHC RDW Plt Count Lymph % (Auto) Amelia % (Auto) Amelia # (Auto) Seg Neutrophils % Seg Neutrophils # PT INR APTT D-Dimer Sodium Potassium Chloride Carbon Dioxide BUN Creatinine Glucose POC Glucose 227 H 266 H 224 H Hemoglobin A1c Lactic Acid Calcium Ferritin Total Bilirubin Direct Bilirubin AST ALT Alkaline Phosphatase Lactate Dehydrogenase CK-MB (CK-2) CK-MB (CK-2) Rel Index Troponin T C-Reactive Protein Total Protein Albumin LDL Cholesterol Direct HDL Cholesterol TSH Free T4 Acetaminophen JULIA Screen Coronavirus (PCR) 12/26/20 12/26/20 12/26/20 07:51 12:40 17:34 WBC RBC 2.92 L Hgb 9.4 L Hct 29.6 L MCV 102 H MCHC RDW 25.1 H Plt Count 58 L Lymph % (Auto) Amelia % (Auto) Amelia # (Auto) Seg Neutrophils % Seg Neutrophils # PT INR APTT D-Dimer Sodium Potassium Chloride Carbon Dioxide BUN Creatinine Glucose POC Glucose 155 H 208 H Hemoglobin A1c Lactic Acid Calcium Ferritin Total Bilirubin Direct Bilirubin AST ALT Alkaline Phosphatase Lactate Dehydrogenase CK-MB (CK-2) CK-MB (CK-2) Rel Index Troponin T C-Reactive Protein Total Protein Albumin LDL Cholesterol Direct HDL Cholesterol TSH Free T4 Acetaminophen JULIA Screen Coronavirus (PCR) 12/26/20 12/26/20 12/26/20 19:48 19:48 19:48 WBC RBC Hgb Hct MCV MCHC RDW Plt Count Lymph % (Auto) Amelia % (Auto) Amelia # (Auto) Seg Neutrophils % Seg Neutrophils # PT INR APTT D-Dimer 1585.97 H Sodium Potassium Chloride Carbon Dioxide BUN Creatinine Glucose POC Glucose Hemoglobin A1c Lactic Acid Calcium Ferritin 3421.0 H Total Bilirubin Direct Bilirubin AST ALT Alkaline Phosphatase Lactate Dehydrogenase 581 H CK-MB (CK-2) CK-MB (CK-2) Rel Index Troponin T C-Reactive Protein 9.30 H Total Protein Albumin LDL Cholesterol Direct HDL Cholesterol TSH Free T4 Acetaminophen JULIA Screen Coronavirus (PCR) 12/26/20 12/26/20 12/27/20 19:48 23:31 05:55 WBC RBC Hgb Hct MCV MCHC RDW Plt Count Lymph % (Auto) Amelia % (Auto) Amelia # (Auto) Seg Neutrophils % Seg Neutrophils # PT INR APTT D-Dimer Sodium Potassium 5.3 H D Chloride Carbon Dioxide BUN Creatinine Glucose POC Glucose 253 H 248 H Hemoglobin A1c Lactic Acid Calcium Ferritin Total Bilirubin Direct Bilirubin AST ALT Alkaline Phosphatase Lactate Dehydrogenase CK-MB (CK-2) CK-MB (CK-2) Rel Index Troponin T 0.735 H* C-Reactive Protein Total Protein Albumin LDL Cholesterol Direct HDL Cholesterol TSH Free T4 Acetaminophen JULIA Screen Coronavirus (PCR) 12/27/20 12/27/20 12/27/20 11:54 17:08 21:39 WBC RBC Hgb Hct MCV MCHC RDW Plt Count Lymph % (Auto) Amelia % (Auto) Amelia # (Auto) Seg Neutrophils % Seg Neutrophils # PT INR APTT D-Dimer Sodium Potassium Chloride Carbon Dioxide BUN Creatinine Glucose POC Glucose 254 H 269 H 249 H Hemoglobin A1c Lactic Acid Calcium Ferritin Total Bilirubin Direct Bilirubin AST ALT Alkaline Phosphatase Lactate Dehydrogenase CK-MB (CK-2) CK-MB (CK-2) Rel Index Troponin T C-Reactive Protein Total Protein Albumin LDL Cholesterol Direct HDL Cholesterol TSH Free T4 Acetaminophen JULIA Screen Coronavirus (PCR) 12/28/20 12/28/20 12/28/20 05:48 05:48 05:48 WBC RBC 2.89 L Hgb 9.3 L Hct 29.6 L MCV 102 H MCHC RDW 24.5 H Plt Count 78 L Lymph % (Auto) Amelia % (Auto) 12.1 H Amelia # (Auto) 1.0 H Seg Neutrophils % 73.6 H Seg Neutrophils # PT 17.1 H INR 1.34 H APTT D-Dimer Sodium Potassium Chloride 97.9 L Carbon Dioxide BUN 39 H Creatinine 3.5 H Glucose 186 H POC Glucose Hemoglobin A1c Lactic Acid Calcium Ferritin Total Bilirubin Direct Bilirubin AST ALT Alkaline Phosphatase Lactate Dehydrogenase CK-MB (CK-2) CK-MB (CK-2) Rel Index Troponin T C-Reactive Protein Total Protein Albumin LDL Cholesterol Direct HDL Cholesterol TSH Free T4 Acetaminophen JULIA Screen Coronavirus (PCR) 12/28/20 12/28/20 12/28/20 05:51 12:05 15:37 WBC RBC 2.98 L Hgb 9.4 L Hct MCV 107 H MCHC 29 L RDW 25.0 H Plt Count 90 L Lymph % (Auto) Amelia % (Auto) Amelia # (Auto) Seg Neutrophils % Seg Neutrophils # PT INR APTT D-Dimer Sodium Potassium Chloride Carbon Dioxide BUN Creatinine Glucose POC Glucose 169 H 208 H Hemoglobin A1c Lactic Acid Calcium Ferritin Total Bilirubin Direct Bilirubin AST ALT Alkaline Phosphatase Lactate Dehydrogenase CK-MB (CK-2) CK-MB (CK-2) Rel Index Troponin T C-Reactive Protein Total Protein Albumin LDL Cholesterol Direct HDL Cholesterol TSH Free T4 Acetaminophen JULIA Screen Coronavirus (PCR) 12/28/20 12/28/20 12/28/20 15:37 15:37 16:09 WBC RBC Hgb Hct MCV MCHC RDW Plt Count Lymph % (Auto) Amelia % (Auto) Amelia # (Auto) Seg Neutrophils % Seg Neutrophils # PT 17.5 H INR 1.38 H APTT D-Dimer Sodium Potassium Chloride Carbon Dioxide BUN Creatinine 3.9 H Glucose POC Glucose 215 H Hemoglobin A1c Lactic Acid Calcium Ferritin Total Bilirubin Direct Bilirubin AST ALT Alkaline Phosphatase Lactate Dehydrogenase CK-MB (CK-2) CK-MB (CK-2) Rel Index Troponin T C-Reactive Protein Total Protein Albumin LDL Cholesterol Direct HDL Cholesterol TSH Free T4 Acetaminophen JULIA Screen Coronavirus (PCR) 12/28/20 12/29/20 12/29/20 21:29 06:36 12:11 WBC RBC Hgb Hct MCV MCHC RDW Plt Count Lymph % (Auto) Amelia % (Auto) Amelia # (Auto) Seg Neutrophils % Seg Neutrophils # PT INR APTT D-Dimer Sodium Potassium Chloride Carbon Dioxide BUN Creatinine Glucose POC Glucose 251 H 325 H 352 H Hemoglobin A1c Lactic Acid Calcium Ferritin Total Bilirubin Direct Bilirubin AST ALT Alkaline Phosphatase Lactate Dehydrogenase CK-MB (CK-2) CK-MB (CK-2) Rel Index Troponin T C-Reactive Protein Total Protein Albumin LDL Cholesterol Direct HDL Cholesterol TSH Free T4 Acetaminophen JULIA Screen Coronavirus (PCR) 12/29/20 12/29/20 12/30/20 18:32 20:50 01:19 WBC RBC Hgb Hct MCV MCHC RDW Plt Count Lymph % (Auto) Amelia % (Auto) Amelia # (Auto) Seg Neutrophils % Seg Neutrophils # PT INR APTT D-Dimer Sodium Potassium Chloride Carbon Dioxide BUN Creatinine Glucose POC Glucose 321 H 289 H 258 H Hemoglobin A1c Lactic Acid Calcium Ferritin Total Bilirubin Direct Bilirubin AST ALT Alkaline Phosphatase Lactate Dehydrogenase CK-MB (CK-2) CK-MB (CK-2) Rel Index Troponin T C-Reactive Protein Total Protein Albumin LDL Cholesterol Direct HDL Cholesterol TSH Free T4 Acetaminophen JULIA Screen Coronavirus (PCR) 12/30/20 12/30/20 12/30/20 05:52 12:10 15:01 WBC 15.2 H RBC 2.94 L Hgb 9.2 L Hct 29.3 L MCV 100 H MCHC RDW 24.2 H Plt Count Lymph % (Auto) Amelia % (Auto) Amelia # (Auto) Seg Neutrophils % Seg Neutrophils # PT INR APTT D-Dimer Sodium Potassium Chloride Carbon Dioxide BUN Creatinine Glucose POC Glucose 228 H 228 H Hemoglobin A1c Lactic Acid Calcium Ferritin Total Bilirubin Direct Bilirubin AST ALT Alkaline Phosphatase Lactate Dehydrogenase CK-MB (CK-2) CK-MB (CK-2) Rel Index Troponin T C-Reactive Protein Total Protein Albumin LDL Cholesterol Direct HDL Cholesterol TSH Free T4 Acetaminophen JULIA Screen Coronavirus (PCR) 12/30/20 12/30/20 12/31/20 15:01 17:47 00:18 WBC RBC Hgb Hct MCV MCHC RDW Plt Count Lymph % (Auto) Amelia % (Auto) Amelia # (Auto) Seg Neutrophils % Seg Neutrophils # PT INR APTT D-Dimer Sodium 135 L Potassium Chloride 93.3 L Carbon Dioxide BUN 80 H Creatinine 5.5 H Glucose 193 H POC Glucose 198 H 214 H Hemoglobin A1c Lactic Acid Calcium Ferritin Total Bilirubin 1.50 H Direct Bilirubin AST 65 H ALT 133 H Alkaline Phosphatase 268 H Lactate Dehydrogenase CK-MB (CK-2) CK-MB (CK-2) Rel Index Troponin T C-Reactive Protein Total Protein 5.8 L Albumin 2.9 L LDL Cholesterol Direct HDL Cholesterol TSH Free T4 Acetaminophen JULIA Screen Coronavirus (PCR) 12/31/20 12/31/20 12/31/20 06:15 12:20 17:48 WBC RBC Hgb Hct MCV MCHC RDW Plt Count Lymph % (Auto) Amelia % (Auto) Amelia # (Auto) Seg Neutrophils % Seg Neutrophils # PT INR APTT D-Dimer Sodium Potassium Chloride Carbon Dioxide BUN Creatinine 3.8 H Glucose POC Glucose 197 H 293 H Hemoglobin A1c Lactic Acid Calcium Ferritin Total Bilirubin Direct Bilirubin AST ALT Alkaline Phosphatase Lactate Dehydrogenase CK-MB (CK-2) CK-MB (CK-2) Rel Index Troponin T C-Reactive Protein Total Protein Albumin LDL Cholesterol Direct HDL Cholesterol TSH Free T4 Acetaminophen JULIA Screen Coronavirus (PCR) - Diagnostic Findings Chest x-ray: report reviewed, image reviewed Additional studies: CHEST 1 VIEW 12/31/20 INDICATION: sob. COMPARISON: 12/17/2015 FINDINGS: Support devices: Left IJ permacath remains in adequate position. A nasogastric tube has been inserted which is followed to the mid stomach but the distal tip is not included. Heart: Stable mild cardiomegaly. Lungs/Pleura: Scattered bilateral pulmonary opacities are identified which appear increased since the previous exam. Although this could represent congestive changes, viral infection is not exclu ded. No pleural effusion or pneumothorax. Additional findings: None. IMPRESSION: Stable cardiomegaly. Bilateral lung opacities as described above. Assessment and Plan The patient is a 70 YO female with history significant for Hypertension, Anemia, Arthritis, CAD s/p CABG and ESRD on hemodialysis (MWF) who presented to [facility] ED 12/16 with altered mental status. Patient was recently seen here in this hospital about a week ago with hyperkalemia during which she had emergent dialysis. She has had a COVID-19 vaccination. Work-up in the emergency room showed wbc 18.2, INR of 2.8, K 5.4, BUN 34, creatinine 5.6, Lactic acid of 6.6, elevated liver enzymes with AST 2838 and ALT 1353 and Troponin 0.72. Chest x-ray showed reduced lung volumes with probable bilateral atelectasis/edema. CT scan of the head showed no acute findings. Patient has been admitted with altered mental status, hyperkalemia, lactic acidosis, elevated liver enzymes and elevated troponin. Now she is tested positive for COVID-19: 12/25 Patient is asleep. She is on high flow O2. 6 litres via nasal canula, and O2 saturation running 92%. She is not in acute respiratory distress. She is afebrile. Blood pressure of 134/43. Leukocytosis present.WBC 15.2. Hg of 9.2, Hct 29.3. PLT 141. CXR 12/16/20 showed reduced lung volumes with probable bilateral atelectasis/edema Repeat chest xray 12/31/20 reported cattered bilateral pulmonary opacities are identified which appear increased since the previous exam. Although this could represent congestive changes, viral infection is not exclu ded. No pleural effusion or pneumothorax. Medication: on Decadron and Prevacid. I spent critical care time of 40 minutes on this patient, review the chart, e xamine the patient, review xrays, lab results,talking to the nursing staff, respiratory therapist and work out plan of treatment in this critically COVID 19 patients. - Patient Problems (1) Dilated cardiomyopathy Current Visit: Yes Status: Acute Plan to address problem: Management as per primary care team and cardiology (2) Hypertension Current Visit: Yes Status: Acute Plan to address problem: Management as per primary care team (3) Pressure ulcer of both heels, unstageable Current Visit: Yes Status: Acute Plan to address problem: Management as per primary care team (4) Diabetes mellitus Current Visit: Yes Status: Acute Plan to address problem: Management as per primary care team (5) ESRD (end stage renal disease) Current Visit: No Status: Acute Plan to address problem: Management as per primary care team (6) Bilateral pulmonary infiltrates on chest x-ray Current Visit: Yes Status: Acute Plan to address problem: Patient afebrile. Has leukocytosis. Antibiotics as per ID. (7) 2019 novel coronavirus disease (COVID-19) Current Visit: Yes Status: Acute Plan to address problem: Patient is on Decodran. Management as per infectious diseases.
[2020-12-31] MEDS: MORPHINE 2 MG/1 ML INJ IV PRN (23:04)
[2021-01-01] MEDS: INSULIN REGULAR, HUMAN 100 UNITS/1 ML SUB-Q SCH ×4 (00:24→19:21)
[2021-01-01 06:16] LABS: Hematocrit 32.7 % (30.3-42.9); Mean Corpuscular HGB Conc 30 % (30-34); Mean Corpuscular Volume 106 fl (79-97); Platelet Count 167 K/mm3 (140-440); Red Blood Count 3.09 M/mm3 (3.65-5.03)
[2021-01-01 06:19] LABS: Red Cell Distribution Width 24.7 % (13.2-15.2)
[2021-01-01] MEDS: MIDODRINE 5 MG TAB PO SCH ×3 (06:42→19:22)
--- NOTE | 2021-01-01 10:28 | Progress Note ---
Assessment and Plan - Patient Problems (1) Dilated cardiomyopathy Current Visit: Yes Status: Acute Plan to address problem: Medical therapy for dilated cardiomyopathy and chronic systolic heart failure. For fluid management, patient is on regular dialysis. (2) Elevated troponin Current Visit: Yes Status: Acute Plan to address problem: Nonspecific finding, patient presented initially with symptoms of hypoglycemia. Subjective Date of service: 01/01/21 Principal diagnosis: change in mentation,ESRD Interval history: Patient on hemodialysis at the time of the visit, no acute cardiac complaints. Objective Vital Signs Temp Pulse Resp BP Pulse Ox 01/01/21 09:26 92 01/01/21 03:21 96 12/31/20 23:05 98.2 F 77 18 94 12/31/20 22:57 87 133/45 12/31/20 22:51 98.5 F 66 18 133/45 80 L 12/31/20 22:00 94 12/31/20 20:49 98 12/31/20 17:35 94 - Physical Examination General: Cachectic, Other (On bedrest, undergoing routine hemodialysis) HEENT: Positive: PERRL Neck: Positive: neck supple Cardiac: Positive: Reg Rate and Rhythm Lungs: Positive: Decreased Breath Sounds Neuro: Positive: Weakness Abdomen: Positive: Soft Skin: Positive: Clear Extremities: Absent: edema - Labs and Meds CBC 01/01/21 Range/Units 05:18 WBC 18.6 H (4.5-11.0) K/mm3 RBC 3.09 L (3.65-5.03) M/mm3 Hgb 10.0 L (10.1-14.3) gm/dl Hct 32.7 (30.3-42.9) % Plt Count 167 (140-440) K/mm3 Comprehensive Metabolic Panel 12/31/20 Range/Units 17:48 Creatinine 3.8 H (0.6-1.2) mg/dL
[2021-01-01] MEDS: LANSOPRAZOLE 30 MG SOLUTAB FEEDTUBE SCH (11:29)
[2021-01-01] MEDS: CHOLECALCIFEROL (VIT D3) 5,000 UNIT TAB PO SCH (11:29)
[2021-01-01] MEDS: METOPROLOL TARTRATE 50 MG TAB PO SCH (11:29)
[2021-01-01] MEDS: DEXAMETHASONE 4 MG TAB PO SCH ×2 (11:29→15:33)
[2021-01-01] MEDS: ASCORBIC ACID 500 MG TAB PO SCH (11:30)
--- NOTE | 2021-01-01 11:34 | Progress Note ---
Assessment and Plan 1. ESRD: Patient is on maintenance hemodialysis three times a week, MWF schedule. Meds dosage based on GFR. Hemodialysis: 12/16, 12/18, 12/20, 12/23, 12/25, 12/27, 12/30, 01/01. 2. FEN: Hyperkalemia, improved. Anion-gap metabolic acidosis, improved. Monitor lytes and volume status. 3. Anemia, POA: 2/2 ESRD. Epogen with HD. 4. Acute metabolic encephalopathy, POA: CT head negative. Seen by Neuro. Monitor. 5. Sepsis, POA: S/p Abx. Bl culture negative. 6. Elevated Troponin // Dilated cardiomyopathy: 2D echo showed EF 30 to 35%. Cardiology following and recommended medical management. 7. Diabetes mellitus type 2: Accu-Cheks and SSI. 8. Bilateral lower extremity pressure sore ulcer, unstageable: S/p debridement on 12/27. Also followed by Vascular. 9. Hypotension: Midodrine. Monitor BP. 10. Elevated ALT / AST: Improving. 11. Thrombocytopenia: Monitor. 12. Positive JULIA: Pt need to f/w Rheum outpatient. Prognosis is slim. Subjective: Patient was seen and examined at the bedside. General Appearance: General appearance: well-developed, appears stated age, not in distress, NC O2, NG tube HEENT: ATNC, pupils equal Neck: trachea midline Respiratory: decreased breath sounds Heart: regular, S1S2, no murmur Abdomen: soft, bowel sounds heard, not tender Integumentary: b/l leg dressing noted Neurologic: lethargic, not following any command, not conversing Ext: no edema Hemodialysis access: L IJ tunnel catheter Subjective Date of service: 01/01/21 Principal diagnosis: change in mentation,ESRD Objective - Vital Signs Vital signs: Vital Signs - 12hr 01/01/21 01/01/21 01/01/21 03:21 09:26 10:00 Temperature 97.9 F Pulse Rate 82 Respiratory 20 Rate Blood Pressure 125/45 O2 Sat by Pulse 96 92 Oximetry O2 Sat by Pulse 100 Oximetry [ Anterior Bilateral Throughout] O2 Sat by Pulse 99 Oximetry [ Bilateral Bases ] O2 Sat by Pulse 99 Oximetry [ Posterior Bilateral Throughout] 01/01/21 01/01/21 01/01/21 10:05 10:15 10:30 Temperature Pulse Rate 80 81 82 Respiratory Rate Blood Pressure 153/48 132/45 128/40 O2 Sat by Pulse Oximetry O2 Sat by Pulse Oximetry [ Anterior Bilateral Throughout] O2 Sat by Pulse Oximetry [ Bilateral Bases ] O2 Sat by Pulse Oximetry [ Posterior Bilateral Throughout] 01/01/21 01/01/21 01/01/21 10:45 11:00 11:15 Temperature Pulse Rate 83 84 84 Respiratory Rate Blood Pressure 125/40 112/48 146/47 O2 Sat by Pulse Oximetry O2 Sat by Pulse Oximetry [ Anterior Bilateral Throughout] O2 Sat by Pulse Oximetry [ Bilateral Bases ] O2 Sat by Pulse Oximetry [ Posterior Bilateral Throughout] - Lab 01/01/21 05:18 12/31/20 17:48 Most recent lab results Calcium 8.7 mg/dL (8.4-10.2) 12/30/20 15:01 Magnesium 2.00 mg/dL (1.7-2.3) 12/26/20 19:48 Magnesium 2.00 mg/dL (1.7-2.3) 12/26/20 19:48 Medications & Allergies - Medications Allergies/Adverse Reactions: Allergies No Known Allergies Allergy (Verified 12/11/20 17:11) Home Medications: Home Medications Medication Instructions Recorded Confirmed Last Taken Type Apixaban [Eliquis] 5 mg PO BID 12/16/20 12/16/20 Unknown History Aspirin [Adult Aspirin] 81 mg PO QDAY 12/16/20 12/16/20 Unknown History Escitalopram [Lexapro] 10 mg PO DAILY 12/16/20 12/16/20 Unknown History Gabapentin 300 mg PO QDAY 12/16/20 12/16/20 Unknown History Levemir Flextouch 6 units SUB-Q HS 12/16/20 12/22/20 Unknown History Midodrine [Proamatine] 15 mg PO TID 12/16/20 12/16/20 Unknown History NovoLOG Flexpen 6 units SUB-Q BID 12/16/20 12/22/20 Unknown History Pantoprazole [Protonix] 40 mg PO QDAY 12/16/20 12/16/20 Unknown History Vit B Comp No.3/Folic/C/Biotin 1 each PO DAILY 12/16/20 12/16/20 Unknown History [Nephro-Nola Rx Tablet] sevelamer HCL [Sevelamer HCl] 800 mg PO TID 12/16/20 12/16/20 Unknown History Active Medications: Generic Name Dose Route Start Last Admin Trade Name Freq PRN Reason Stop Dose Admin Lipase/Protease/Amylase 1 each 12/22/20 10:34 Lipase 10,500/Protease 25,000/Amylase 43,750 (Units) Dr Lazar FEEDTUBE PRN PRN For Clogged Feeding Tube Ascorbic Acid 1,000 mg 12/26/20 22:00 01/01/21 11:30 Ascorbic Acid 500 Mg Tab PO Not Given BID [facility] Cholecalciferol 5,000 unit 12/26/20 15:00 01/01/21 11:29 Cholecalciferol (Vit D3) 5,000 Unit Tab PO Not Given DAILY [facility] Dexamethasone 6 mg 12/26/20 15:00 01/01/21 11:29 Dexamethasone 4 Mg Tab PO 01/04/21 10:01 Not Given Q24HR JEET Dextrose 0 ml 12/16/20 03:40 12/18/20 08:23 Dextrose 50% In Water (25gm) 50 Ml Syringe IV 50 ml Q30MIN PRN Administration Hypoglycemia Protocol Sodium Chloride 100 mls @ 999 mls/hr 12/20/20 09:20 Nacl 0.9% IV ROSA M PRN Hypotension Insulin Human Regular 0 units 12/24/20 18:00 01/01/21 06:44 Insulin Regular, Human 100 Units/1 Ml SUB-Q 4 units Q6HR JEET Administration Protocol Lansoprazole 30 mg 12/25/20 10:00 01/01/21 11:29 Lansoprazole 30 Mg Solutab FEEDTUBE Not Given QDAY JEET Magnesium Hydroxide 30 ml 12/16/20 03:40 Magnesium Hydroxide (Mom) Oral Liqd Udc PO Q4H PRN Constipation Metoprolol Tartrate 50 mg 12/26/20 22:00 01/01/21 11:29 Metoprolol Tartrate 50 Mg Tab PO Not Given BID JEET Midodrine 15 mg 12/31/20 18:00 01/01/21 06:42 Midodrine 5 Mg Tab PO 15 mg 0600,1200,1800 JEET Administration Morphine Sulfate 0.5 mg 12/18/20 13:00 12/31/20 23:04 Morphine 2 Mg/1 Ml Inj IV 0.5 mg Q6H PRN Administration Pain, Moderate (4-6) Ondansetron HCl 4 mg 12/16/20 03:40 Ondansetron 4 Mg/2 Ml Inj IV Q8H PRN Nausea And Vomiting Simple Syrup 15 ml 12/22/20 08:19 Simple Syrup 15 Ml FEEDTUBE PRN PRN Hypoglycemia Simple Syrup 30 ml 12/22/20 08:19 Simple Syrup 15 Ml FEEDTUBE PRN PRN Hypoglycemia Sodium Bicarbonate 325 mg 12/22/20 10:34 Sodium Bicarbonate 325 Mg Tab FEEDTUBE PRN PRN For Clogged Feeding Tube Sodium Chloride 10 ml 12/16/20 10:00 12/31/20 22:58 Sodium Chloride 0.9% 10 Ml Flush Syringe IV 10 ml BID JEET Administration Sodium Chloride 10 ml 12/16/20 03:40 Sodium Chloride 0.9% 10 Ml Flush Syringe IV PRN PRN LINE FLUSH
--- NOTE | 2021-01-01 15:34 | Progress Note ---
Assessment and Plan The patient is a 70 YO female with history significant for Hypertension, Anemia, Arthritis, CAD s/p CABG and ESRD on hemodialysis (MWF) who presented to [facility] ED 12/16 with altered mental status. Patient was recently seen here in this hospital about a week ago with hyperkalemia during which she had emergent dialysis. She has had a COVID-19 vaccination. Work-up in the emergency room showed wbc 18.2, INR of 2.8, K 5.4, BUN 34, creatinine 5.6, Lactic acid of 6.6, elevated liver enzymes with AST 2838 and ALT 1353 and Troponin 0.72. Chest x-ray showed reduced lung volumes with probable bilateral atelectasis/edema. CT scan of the head showed no acute findings. Patient has been admitted with altered mental status, hyperkalemia, lactic acidosis, elevated liver enzymes and elevated troponin. Now she is tested positive for COVID-19: 12/25 Assessment and plan: --Positive COVID-19 infection -Patient tested positive for COVID-19 virus on 12/25 -Initiated on dexamethasone, not a candidate for remdesivir for ESRD -Consult ID and follow recommendation -Droplet/contact isolation -Continue SPO2 monitoring -Supplemental oxygen as needed -Pulmonary hygiene -Prone to sleep -Vitamin C, vitamin D, zinc -Anticoagulation per protocol --Acute hypoxic respiratory failure, likely due to COVID-19 pneumonia and underl ifrah CHF Patient was resting on 2 L nasal cannula but currently placed on 8 L consulted pulmonary critical care, scheduled nebulizer breathing treatment, empiric steroid Wean off O2 as tolerated --Hypotension, now improved BP dropped to around 40s on 12/31 initiated home dose of midodrine Continue to follow clinically --Acute metabolic encephalopathy Possibly secondary to multiple underlying problems including possible sepsis, end-stage renal disease with hyperkalemia and elevated liver enzymes. Will monitor mental status. MRI brain without any acute infarct, neurology consulted and recommended to obtain EEG which is pending Patient remains pleasantly confused, continue supportive care and tube feeding --Suspected sepsis sepsis, POA No clear source of infection yet, completed Cefepime and Vancomycin ID following --Thrombocytopenia may be due to Sepsis. To r/o HIT She did not get any Heparin this admission but got Heparin last admission just few days earlier Obtain HIT test Consulted Hematology, discontinued all heparin and anticoagulation -- ESRD (end stage renal disease) Nephrology consulted for hemodialysis, follow BMP, avoid nephrotoxic agents --Hyperkalemia Possibly secondary to the end-stage renal disease. Patient treated with Kayexalate, insulin/glucose, sodium bicarb and will monitor potassium levels. --Elevated liver enzymes Etiology unclear, likely due to shock liver GI was consulted, liver serologies are negative Continue to trend and medical management --Elevated troponin/NSTEMI type II Possibly secondary to the underlying end-stage renal disease versus dilated cardiomyopathy versus sepsis. However we trend cardiac enzymes and request cardiology evaluation and recommendations. 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 We will monitor Accu-Cheks closely. --Bilateral lower extremity pressure sore ulcer and extensive PVD, unstageable Dr. Odom consulted and status post debridement on 12/27 Vascular recommended endovascular procedure when pt clinically more stable --Elevated JULIA Antidouble-stranded DNA marker is normal Likely patient has underlying auto inflammatory disease Need further outpatient, continue to follow clinically for now --DVT prophylaxis SCD for possible HIT, Eliquis is discontinued by hematology --Full code status Daily clinical course: 12/17/20 Patient with ESRD on hemodialysis presents with altered mental status, acute metabolic encephalopathy. Also has markedly elevated AST and ALT GI consulted. Her LFTs were normal last admission just 5 days ago. 12/18/20 Patient with ESRD on hemodialysis. Rapid response called this morning. She is very lethargic, minimal responsive. Bld glucose 45mg/dl and BP 74/15. She was given 1 amp D50. Blood glucose now 163. BP up to 123/30 but MAP still under 65. Will give 500 ml Normal Saline and transfer to [facility].I discussed with Dr. Chong, Nephrology. LFTs improving though still very high. 12/19/20 Patient with ESRD on hemodialysis. Rapid response called yesterday for hypoglycemia and hypotension, so transferred to [facility]. Blood glucose normalized. BP improved. 12/20/20 Patient with ESRD on hemodialysis. Presented with altered mental status. Was transferred to [facility] on 12/18/20. Still has altered mental status, very lethargic. MRI ordered. Neurology consulted. 12/21/20 Patient with ESRD on hemodialysis. Presented with altered mental status. Was transferred to [facility] on 12/18/20. Still has altered mental status, very lethargic. MRI ordered. EEG ordered. Patient ws evaluated by Neurology. Will talk to family. 12/22/20 Patient with ESRD on hemodialysis, diabetes,hypertension. She presented with altered mental status. She has been diagnosed with sepsis(POA), hypoglycemia, hypotension, thrombocytopenia. Was transferred to [facility] on 12/18/20 because of episode of hypoglycemia and hypotension. . Still has altered mental status, very lethargic. Neurology was consulted MRI ordered. EEG ordered. I spoke to daughter Michelle Kruger yesterday and gave update. For thrombocytopenia, will obtain HIT. Consult Hematology For blood in stool, will re-consult GI. Check H/H serially Elevated LFTs likely due to shock liver, improving 12/23/20 Patient with ESRD on hemodialysis, diabetes,hypertension. She presented with altered mental status. She has been diagnosed with sepsis(POA), hypoglycemia, hypotension, thrombocytopenia. Was transferred to [facility] on 12/18/20 because of episode of hypoglycemia and hypotension. . Still has altered mental status, very lethargic. Neurology was consulted MRI ordered. EEG ordered. I spoke to daughter Michelle Kruger few days ago and gave update. Patient has thrombocytopenia, worsening 54 today. Consult Hematology. HIT ordered For blood in stool, will re-consult GI. Check H/H serially Elevated LFTs likely due to shock liver, improving. Was initially evaluated by GI patient stable to transfer back to [facility] since BP stable. 12/24/20; MRI brain yesterday showed extensive chronic changes but no acute infarct. Patient remains confused on TF. speech recommended pureed diet on prior assessment- will initiate. cont to follow 12/25/20: Ordered for Covid test, patient remains very lethargic, unable to tolerate p.o. we will continue on tube feeding. Continue supportive care. Evaluated by Dr. Odom at the bedside for bilateral lower extremity wound. Plan for debridement, continue to follow 12/26/20: Patient tested positive for COVID-19. Transfer to [facility]/Covid unit. Will place on Covid protocol, ID consult, obtain chest x-ray, initiate on dexamethasone. Patient daughter was notified about patient's positive Covid status. Continue to monitor clinically, patient remains confused. 12/27/20: Status post debridement by Dr. Odom today of bilateral lower extremities wound. MRI of lower extremities ordered. Her arterial duplex demonstrates monophasic waveforms throughout bilateral lower extremities, suggesting aortoiliac occlusive disease. She is unlikely to heal her wounds without an angiogram and improvement of her arterial flow in bilateral lower extremities. Vascular surgery consulted, patient will likely require angiogram. Follow inflammatory markers for COVID-19 pneumonia, not a candidate for remdesivir. Continue dexamethasone for now. Unable to start any anticoa gulation due to thrombocytopenia. 12/28/20; plan for CT abdomen pelvis with contrast for extensive peripheral vascular disease. Vascular surgery following for possible angiogram. Continue to follow inflammatory markers, continue dexamethasone. Continue tube feeding diet. Speech evaluated the patient and recommended to hold oral diet. Continue to follow. 12/29/20; CT abdomen pelvis tomorrow as patient will need hemodialysis within 24 hours. Remains on tube feeding, wait for repeat speech eval. Continue supportive care. 12/30/20; patient failed swallow eval with speech. had a prolong discussion with daughter about further care and she wants to continue everything possible to be done. I explained patient with bedbound status with multiple pressure sore ulcers with poor healing, ESRD on HD, CHFrEF, extensive PVD, advanced dementia now failed speech eval and nonverbal. patient with all underlying conditions has very poor chance of good quality of life and her condition may continue to deteriorate even after appropriate treatment has given. Daughter stated she understands and still wants to proceed with PEg tube for nutrition and any vascular intervention if needed. I placed consult for GI for PEG placement and updated vascular about daughter's wish. 12/31/20: Patient noted to have more oxygen requirement since this morning, also had significantly low blood pressure SBP 140s. Patient had dialysis yesterday. Will order a stat chest x-ray, will initiate patient home medicine of midodrine. Discussed with daughter thoroughly about change in condition and is she is still wants to continue full CODE STATUS. Patient currently on 8 L nasal cannula, consulted pulmonary critical care. 01/01/21: Patient remains on 8 L nasal cannula O2, BP much stable today. Plan for dialysis. Again discussed with the daughter and patient and brother in length about CODE STATUS, patient care management. Family still in agreement for maintaining full CODE STATUS. Continue supportive care, monitor inflammatory markers and wean off O2 as tolerated. Chronically debilitated patient with multiple medical problems and comorbidities now positive for covid with increasing O2 demand, prognosis is extremely poor. Subjective Date of service: 01/01/21 Principal diagnosis: change in mentation,ESRD Interval history: Patient seen and examined. Medical records and medication list reviewed. No acute event overnight noted by the RN. Patient remains nonverbal but remains alert placed on 8 L nasal cannula BP appears to be stable discussed plan of care with RN and case management Updated daughter, patient to continue as full code Objective - Exam Narrative Exam: - General Apperance Constitutional: uncomfortable, other (alert but nonverbal) - EENT EENT: PERRL, mucous membranes moist - Respiratory Respiratory: chest non-tender, lungs clear, rales, rhonchi - Cardiovascular Cardiovascular: regular rate, normal S1, normal S2 Extremities: no peripheral edema bilat, no clubbing, cyanosis - Gastrointestinal Gastrointestinal: normoactive bowel sounds -Extremities Extensive bilateral lower extremities pressure sore ulcer with wound dressing, POA - Integumentary Integumentary: normal - Neurologic Cranial nerve examination: PERRL, EOMI, limited neurologic exam as patient is nonverbal and does not follow commands - Constitutional Vitals: Vital Signs - 12hr 01/01/21 01/01/21 01/01/21 03:21 09:26 10:00 Temperature 97.9 F Pulse Rate 82 Respiratory 20 Rate Blood Pressure 125/45 O2 Sat by Pulse 96 92 Oximetry O2 Sat by Pulse 100 Oximetry [ Anterior Bilateral Throughout] O2 Sat by Pulse 99 Oximetry [ Bilateral Bases ] O2 Sat by Pulse 99 Oximetry [ Posterior Bilateral Throughout] 01/01/21 01/01/21 01/01/21 10:05 10:15 10:30 Temperature Pulse Rate 80 81 82 Respiratory Rate Blood Pressure 153/48 132/45 128/40 O2 Sat by Pulse Oximetry O2 Sat by Pulse Oximetry [ Anterior Bilateral Throughout] O2 Sat by Pulse Oximetry [ Bilateral Bases ] O2 Sat by Pulse Oximetry [ Posterior Bilateral Throughout] 01/01/21 01/01/21 01/01/21 10:45 11:00 11:15 Temperature Pulse Rate 83 84 84 Respiratory Rate Blood Pressure 125/40 112/48 146/47 O2 Sat by Pulse Oximetry O2 Sat by Pulse Oximetry [ Anterior Bilateral Throughout] O2 Sat by Pulse Oximetry [ Bilateral Bases ] O2 Sat by Pulse Oximetry [ Posterior Bilateral Throughout] 01/01/21 01/01/21 01/01/21 11:30 11:45 12:00 Temperature Pulse Rate 86 88 90 Respiratory Rate Blood Pressure 137/44 141/62 135/46 O2 Sat by Pulse Oximetry O2 Sat by Pulse Oximetry [ Anterior Bilateral Throughout] O2 Sat by Pulse Oximetry [ Bilateral Bases ] O2 Sat by Pulse Oximetry [ Posterior Bilateral Throughout] 01/01/21 01/01/21 01/01/21 12:15 12:30 12:45 Temperature Pulse Rate 86 87 88 Respiratory Rate Blood Pressure 152/42 134/43 137/45 O2 Sat by Pulse Oximetry O2 Sat by Pulse Oximetry [ Anterior Bilateral Throughout] O2 Sat by Pulse Oximetry [ Bilateral Bases ] O2 Sat by Pulse Oximetry [ Posterior Bilateral Throughout] 01/01/21 01/01/21 13:05 14:00 Temperature Pulse Rate 88 Respiratory Rate Blood Pressure 151/41 O2 Sat by Pulse 94 Oximetry O2 Sat by Pulse Oximetry [ Anterior Bilateral Throughout] O2 Sat by Pulse Oximetry [ Bilateral Bases ] O2 Sat by Pulse Oximetry [ Posterior Bilateral Throughout] - Labs CBC & Chem 7: 01/01/21 05:18 12/31/20 17:48 Labs: Abnormal lab results 12/31/20 01/01/21 01/01/21 Range/Units 17:48 00:14 05:18 WBC 18.6 H (4.5-11.0) K/mm3 RBC 3.09 L (3.65-5.03) M/mm3 Hgb 10.0 L (10.1-14.3) gm/dl MCV 106 H (79-97) fl RDW 24.7 H (13.2-15.2) % Creatinine 3.8 H (0.6-1.2) mg/dL POC Glucose 335 H (70-105) mg/dL 01/01/21 01/01/21 Range/Units 06:26 13:26 WBC (4.5-11.0) K/mm3 RBC (3.65-5.03) M/mm3 Hgb (10.1-14.3) gm/dl MCV (79-97) fl RDW (13.2-15.2) % Creatinine (0.6-1.2) mg/dL POC Glucose 328 H 287 H (70-105) mg/dL HEART Score - HEART Score Troponin: Troponin T 0.735 ng/mL (0.00-0.029) H* 12/26/20 19:48
--- NOTE | 2021-01-01 17:07 | Progress Note ---
Assessment and Plan Cultures: 12/16/2020 blood culture: No growth A/P: 70-year-old female with diabetes, hypertension, ESRD admitted to the hospital on 12/16/2020 due to altered mental status: #COVID: No acute change, respiratory status has improved since admission. ?False positive. #Bilateral lower extremity wounds, ?some wounds may be calciphylaxis: Wound care, dialysis compliance. b/l arterial dopplers of LE with diffuse disease, no focal stenosis. #ESRD on HD: Renally dose antibiotics. #Acute encephalopathy: CT head with atrophy, severe generalized atherosclerosis, no acute intracranial abnormality #Elevated LFTs: Downtrending. Abdominal ultrasound showed contracted gallbladder, no other acute abnormality. Hepatitis panel negative. #Thrombocytopenia Recs: -On dexamethasone for COVD, complete 10 days. -Not a remdesivir candidate due to renal failure. -Wound care, offloading as possible -Family refusing amputation. Sohail Jay MD [facility] ([facility]) O: [phone] F: [phone] Subjective Date of service: 01/01/21 Principal diagnosis: change in mentation,ESRD Interval history: Afebrile, white count 18.6. On 8 L of nasal cannula. Objective - Exam Narrative Exam: Physical exam deferred to reduce risk of transmission of COVID-19. Please refer to primary team's note. - Constitutional Vitals: Vital Signs Temp Pulse Resp BP Pulse Ox 97.7 F 92 H 18 131/46 94 01/01/21 13:15 01/01/21 13:15 01/01/21 13:15 01/01/21 13:15 01/01/21 14:00 Temperature -Last 24 Hours Temperature 97.7 F Temperature 97.9 F Temperature 98.2 F Temperature 98.5 F - Labs CBC & Chem 7: 01/01/21 05:18 12/31/20 17:48 Labs: Abnormal lab results 12/31/20 01/01/21 01/01/21 Range/Units 17:48 00:14 05:18 WBC 18.6 H (4.5-11.0) K/mm3 RBC 3.09 L (3.65-5.03) M/mm3 Hgb 10.0 L (10.1-14.3) gm/dl MCV 106 H (79-97) fl RDW 24.7 H (13.2-15.2) % Creatinine 3.8 H (0.6-1.2) mg/dL POC Glucose 335 H (70-105) mg/dL 01/01/21 01/01/21 01/01/21 Range/Units 06:26 13:26 16:37 WBC (4.5-11.0) K/mm3 RBC (3.65-5.03) M/mm3 Hgb (10.1-14.3) gm/dl MCV (79-97) fl RDW (13.2-15.2) % Creatinine (0.6-1.2) mg/dL POC Glucose 328 H 287 H 219 H (70-105) mg/dL
--- NOTE | 2021-01-01 21:01 | Progress Note ---
Assessment and Plan The patient is a 70 YO female with history significant for Hypertension, Anemia, Arthritis, CAD s/p CABG and ESRD on hemodialysis (MWF) who presented to [facility] ED 12/16 with altered mental status. Patient was recently seen here in this hospital about a week ago with hyperkalemia during which she had emergent dialysis. She has had a COVID-19 vaccination. Work-up in the emergency room showed wbc 18.2, INR of 2.8, K 5.4, BUN 34, creatinine 5.6, Lactic acid of 6.6, elevated liver enzymes with AST 2838 and ALT 1353 and Troponin 0.72. Chest x-ray showed reduced lung volumes with probable bilateral atelectasis/edema. CT scan of the head showed no acute findings. Patient has been admitted with altered mental status, hyperkalemia, lactic acidosis, elevated liver enzymes and elevated troponin. Now she is tested positive for COVID-19: 12/25 atient is asleep.Patient moaning and groing at times. She is on high flow O2. 6 litres via nasal canula, and O2 saturation running 92%. She is not in acute respiratory distress. She is afebrile. Blood pressure of 116/24. Leukocytosis present.WBC 18.6. Hg of 10, Hct 32.7. PLT 167,000. CXR 12/16/20 showed reduced lung volumes with probable bilateral atelectasis/edema Repeat chest xray 12/31/20 reported cattered bilateral pulmonary opacities are identified which appear increased since the previous exam. Although this could represent congestive changes, viral infection is not excluded. No pleural effusion or pneumothorax. Medication: on ceftraxone, zithromax,Decadron and Prevacid, S/C Heparin and Mido drine. I spent critical care time of 35 minutes on this patient, review the chart, e xamine the patient, review xrays, lab results,talking to the nursing staff, respiratory therapist and work out plan of treatment in this critically COVID 19 patients. - Patient Problems (1) Dilated cardiomyopathy Current Visit: Yes Status: Acute Plan to address problem: Management as per primary care team and cardiology (2) Hypertension Current Visit: Yes Status: Acute Plan to address problem: Management as per primary care team (3) Pressure ulcer of both heels, unstageable Current Visit: Yes Status: Acute Plan to address problem: Management as per primary care team (4) Diabetes mellitus Current Visit: Yes Status: Acute Plan to address problem: Management as per primary care team (5) ESRD (end stage renal disease) Current Visit: No Status: Acute Plan to address problem: Management as per primary care team (6) Bilateral pulmonary infiltrates on chest x-ray Current Visit: Yes Status: Acute Plan to address problem: Patient afebrile. Has leukocytosis. Patient is on Ceftriaxone and zithromax. (7) 2019 novel coronavirus disease (COVID-19) Current Visit: Yes Status: Acute Plan to address problem: Patient is on Decodran. Management as per infectious diseases. Subjective Date of service: 01/01/21 Principal diagnosis: change in mentation,ESRD Interval history: he patient is a 70 YO female with history significant for Hypertension, Anemia, Arthritis, CAD s/p CABG and ESRD on hemodialysis (MWF) who presented to [facility] ED 12/16 with altered mental status. Patient was recently seen here in this hospital about a week ago with hyperkalemia during which she had emergent dialysis. She has had a COVID-19 vaccination. Work-up in the emergency room showed wbc 18.2, INR of 2.8, K 5.4, BUN 34, creatinine 5.6, Lactic acid of 6.6, elevated liver enzymes with AST 2838 and ALT 1353 and Troponin 0.72. Chest x-ray showed reduced lung volumes with probable bilateral atelectasis/edema. CT scan of the head showed no acute findings. Patient has been admitted with altered mental status, hyperkalemia, lactic acidosis, elevated liver enzymes and elevated troponin. Now she is tested positive for COVID-19: 12/25 Patient is asleep. She is on high flow O2. 6 litres via nasal canula, and O2 saturation running 92%. She is not in acute respiratory distress. She is afebrile. Blood pressure of 116/24. Leukocytosis present.WBC 18.6. Hg of 10, Hct 32.7. PLT 167,000. CXR 12/16/20 showed reduced lung volumes with probable bilateral atelectasis/edema Repeat chest xray 12/31/20 reported cattered bilateral pulmonary opacities are identified which appear increased since the previous exam. Although this could represent congestive changes, viral infection is not exclu ded. No pleural effusion or pneumothorax. Medication: on ceftraxone, zithromax,Decadron and Prevacid, S/C Heparin and Mido drine. Objective Vital Signs - 12hr 01/01/21 01/01/21 01/01/21 09:26 10:00 10:05 Temperature 97.9 F Pulse Rate 82 80 Respiratory 20 Rate Blood Pressure 125/45 153/48 O2 Sat by Pulse 92 93 Oximetry O2 Sat by Pulse 100 Oximetry [ Anterior Bilateral Throughout] O2 Sat by Pulse 99 Oximetry [ Bilateral Bases ] O2 Sat by Pulse 99 Oximetry [ Posterior Bilateral Throughout] 01/01/21 01/01/21 01/01/21 10:15 10:30 10:45 Temperature Pulse Rate 81 82 83 Respiratory Rate Blood Pressure 132/45 128/40 125/40 O2 Sat by Pulse Oximetry O2 Sat by Pulse Oximetry [ Anterior Bilateral Throughout] O2 Sat by Pulse Oximetry [ Bilateral Bases ] O2 Sat by Pulse Oximetry [ Posterior Bilateral Throughout] 01/01/21 01/01/21 01/01/21 11:00 11:15 11:30 Temperature Pulse Rate 84 84 86 Respiratory Rate Blood Pressure 112/48 146/47 137/44 O2 Sat by Pulse Oximetry O2 Sat by Pulse Oximetry [ Anterior Bilateral Throughout] O2 Sat by Pulse Oximetry [ Bilateral Bases ] O2 Sat by Pulse Oximetry [ Posterior Bilateral Throughout] 01/01/21 01/01/21 01/01/21 11:45 12:00 12:15 Temperature Pulse Rate 88 90 86 Respiratory Rate Blood Pressure 141/62 135/46 152/42 O2 Sat by Pulse Oximetry O2 Sat by Pulse Oximetry [ Anterior Bilateral Throughout] O2 Sat by Pulse Oximetry [ Bilateral Bases ] O2 Sat by Pulse Oximetry [ Posterior Bilateral Throughout] 01/01/21 01/01/21 01/01/21 12:30 12:45 13:05 Temperature Pulse Rate 87 88 88 Respiratory Rate Blood Pressure 134/43 137/45 151/41 O2 Sat by Pulse Oximetry O2 Sat by Pulse Oximetry [ Anterior Bilateral Throughout] O2 Sat by Pulse Oximetry [ Bilateral Bases ] O2 Sat by Pulse Oximetry [ Posterior Bilateral Throughout] 01/01/21 01/01/21 13:15 14:00 Temperature 97.7 F Pulse Rate 92 H Respiratory 18 Rate Blood Pressure 131/46 O2 Sat by Pulse 94 Oximetry O2 Sat by Pulse 100 Oximetry [ Anterior Bilateral Throughout] O2 Sat by Pulse 99 Oximetry [ Bilateral Bases ] O2 Sat by Pulse 99 Oximetry [ Posterior Bilateral Throughout] Constitutional: no acute distress, asleep Eyes: non-icteric ENT: oropharynx moist Neck: supple Ascultation: Bilateral: rhonchi Cardiovascular: regular rate and rhythm Gastrointestinal: normoactive bowel sounds, soft, non-tender Integumentary: normal Extremities: no cyanosis Neurologic: other (patient asleep so unable to assess) Psychiatric: other (patient asleep so unable to assess) CBC and BMP: 01/01/21 05:18 12/31/20 17:48 ABG, PT/INR, D-dimer: PT/INR, D-dimer PT 17.5 Sec. (12.2-14.9) H 12/28/20 15:37 INR 1.38 (0.87-1.13) H 12/28/20 15:37 D-Dimer 1585.97 ng/mlDDU (0-234) H 12/26/20 19:48 Abnormal lab findings: Abnormal Labs 12/16/20 12/16/20 12/16/20 00:38 00:57 00:57 WBC 18.2 H RBC 3.13 L Hgb 9.4 L Hct MCV 100 H MCHC RDW 22.7 H Plt Count Lymph % (Auto) 8.0 L [place] % (Auto) 7.8 H [place] # (Auto) 1.4 H Seg Neutrophils % 83.4 H Seg Neutrophils # 15.2 H PT 29.9 H INR 2.80 H APTT 39.9 H D-Dimer Sodium Potassium Chloride Carbon Dioxide BUN Creatinine Glucose POC Glucose 116 H Hemoglobin A1c Lactic Acid Calcium Ferritin Total Bilirubin Direct Bilirubin AST ALT Alkaline Phosphatase Lactate Dehydrogenase CK-MB (CK-2) CK-MB (CK-2) Rel Index Troponin T C-Reactive Protein Total Protein Albumin LDL Cholesterol Direct HDL Cholesterol TSH Free T4 Acetaminophen JULIA Screen Coronavirus (PCR) 12/16/20 12/16/20 12/16/20 00:57 00:57 00:57 WBC RBC Hgb Hct MCV MCHC RDW Plt Count Lymph % (Auto) [place] % (Auto) [place] # (Auto) Seg Neutrophils % Seg Neutrophils # PT INR APTT D-Dimer Sodium 136 L Potassium 5.4 H Chloride 94.2 L Carbon Dioxide 18 L D BUN 34 H Creatinine 5.6 H Glucose 108 H POC Glucose Hemoglobin A1c Lactic Acid 8.10 H* Calcium Ferritin Total Bilirubin 1.30 H Direct Bilirubin AST 2838 H ALT 1353 H Alkaline Phosphatase 186 H Lactate Dehydrogenase CK-MB (CK-2) 5.1 H CK-MB (CK-2) Rel Index 6.0 H Troponin T 0.720 H* C-Reactive Protein Total Protein Albumin 3.2 L LDL Cholesterol Direct 34 L HDL Cholesterol 64 H TSH 6.720 H Free T4 1.54 H Acetaminophen JULIA Screen Coronavirus (PCR) 12/16/20 12/16/20 12/16/20 01:45 05:48 05:48 WBC RBC Hgb Hct MCV MCHC RDW Plt Count Lymph % (Auto) [place] % (Auto) [place] # (Auto) Seg Neutrophils % Seg Neutrophils # PT INR APTT D-Dimer Sodium Potassium Chloride Carbon Dioxide BUN Creatinine Glucose POC Glucose Hemoglobin A1c Lactic Acid 6.60 H* 6.00 H* Calcium Ferritin Total Bilirubin Direct Bilirubin AST ALT Alkaline Phosphatase Lactate Dehydrogenase CK-MB (CK-2) CK-MB (CK-2) Rel Index Troponin T 0.731 H* C-Reactive Protein Total Protein Albumin LDL Cholesterol Direct HDL Cholesterol TSH Free T4 Acetaminophen JULIA Screen Coronavirus (PCR) 12/16/20 12/16/20 12/16/20 05:48 05:48 07:57 WBC RBC Hgb Hct MCV MCHC RDW Plt Count Lymph % (Auto) [place] % (Auto) [place] # (Auto) Seg Neutrophils % Seg Neutrophils # PT INR APTT D-Dimer Sodium Potassium Chloride Carbon Dioxide BUN Creatinine Glucose POC Glucose 115 H 118 H Hemoglobin A1c Lactic Acid Calcium Ferritin Total Bilirubin Direct Bilirubin AST ALT Alkaline Phosphatase Lactate Dehydrogenase CK-MB (CK-2) CK-MB (CK-2) Rel Index Troponin T C-Reactive Protein Total Protein Albumin LDL Cholesterol Direct HDL Cholesterol TSH Free T4 Acetaminophen 5.0 L JULIA Screen Coronavirus (PCR) 12/16/20 12/16/20 12/16/20 10:35 11:30 16:12 WBC RBC Hgb Hct MCV MCHC RDW Plt Count Lymph % (Auto) [place] % (Auto) [place] # (Auto) Seg Neutrophils % Seg Neutrophils # PT INR APTT D-Dimer Sodium Potassium Chloride Carbon Dioxide BUN Creatinine Glucose POC Glucose 124 H 115 H Hemoglobin A1c Lactic Acid 2.40 H* Calcium Ferritin Total Bilirubin Direct Bilirubin AST ALT Alkaline Phosphatase Lactate Dehydrogenase CK-MB (CK-2) CK-MB (CK-2) Rel Index Troponin T C-Reactive Protein Total Protein Albumin LDL Cholesterol Direct HDL Cholesterol TSH Free T4 Acetaminophen JULIA Screen Coronavirus (PCR) 12/16/20 12/17/20 12/17/20 21:00 05:42 05:42 WBC 12.0 H RBC 2.52 L Hgb 7.6 L Hct 24.6 L D MCV 98 H MCHC RDW 22.7 H Plt Count 137 L Lymph % (Auto) 9.7 L [place] % (Auto) 8.3 H [place] # (Auto) 1.0 H Seg Neutrophils % 78.2 H Seg Neutrophils # 9.4 H PT 26.3 H INR 2.36 H APTT D-Dimer Sodium Potassium Chloride Carbon Dioxide BUN Creatinine Glucose POC Glucose 149 H Hemoglobin A1c Lactic Acid Calcium Ferritin Total Bilirubin Direct Bilirubin AST ALT Alkaline Phosphatase Lactate Dehydrogenase CK-MB (CK-2) CK-MB (CK-2) Rel Index Troponin T C-Reactive Protein Total Protein Albumin LDL Cholesterol Direct HDL Cholesterol TSH Free T4 Acetaminophen JULIA Screen Coronavirus (PCR) 12/17/20 12/17/20 12/17/20 05:42 05:42 05:42 WBC RBC Hgb Hct MCV MCHC RDW Plt Count Lymph % (Auto) [place] % (Auto) [place] # (Auto) Seg Neutrophils % Seg Neutrophils # PT INR APTT D-Dimer Sodium Potassium Chloride Carbon Dioxide BUN 28 H Creatinine 4.5 H Glucose 176 H POC Glucose Hemoglobin A1c Lactic Acid Calcium Ferritin Total Bilirubin Direct Bilirubin 0.6 H AST 1744 H ALT 1938 H Alkaline Phosphatase 158 H Lactate Dehydrogenase CK-MB (CK-2) CK-MB (CK-2) Rel Index Troponin T C-Reactive Protein Total Protein 5.7 L Albumin 2.7 L LDL Cholesterol Direct HDL Cholesterol TSH Free T4 Acetaminophen JULIA Screen Positive H Coronavirus (PCR) 12/17/20 12/17/20 12/17/20 09:54 12:30 16:32 WBC RBC Hgb Hct MCV MCHC RDW Plt Count Lymph % (Auto) [place] % (Auto) [place] # (Auto) Seg Neutrophils % Seg Neutrophils # PT INR APTT D-Dimer Sodium Potassium Chloride Carbon Dioxide BUN Creatinine Glucose POC Glucose 150 H 154 H 146 H Hemoglobin A1c Lactic Acid Calcium Ferritin Total Bilirubin Direct Bilirubin AST ALT Alkaline Phosphatase Lactate Dehydrogenase CK-MB (CK-2) CK-MB (CK-2) Rel Index Troponin T C-Reactive Protein Total Protein Albumin LDL Cholesterol Direct HDL Cholesterol TSH Free T4 Acetaminophen JULIA Screen Coronavirus (PCR) 12/17/20 12/18/20 12/18/20 20:26 05:57 05:57 WBC 14.8 H RBC 2.70 L Hgb 8.2 L Hct 27.5 L MCV 102 H MCHC RDW 22.5 H Plt Count 87 L Lymph % (Auto) [place] % (Auto) [place] # (Auto) Seg Neutrophils % Seg Neutrophils # PT INR APTT D-Dimer Sodium Potassium Chloride Carbon Dioxide 18 L D BUN 36 H Creatinine 6.0 H Glucose 63 L POC Glucose 107 H Hemoglobin A1c Lactic Acid Calcium Ferritin Total Bilirubin 1.30 H Direct Bilirubin AST 1403 H ALT 1839 H Alkaline Phosphatase 149 H Lactate Dehydrogenase CK-MB (CK-2) CK-MB (CK-2) Rel Index Troponin T C-Reactive Protein Total Protein 5.6 L Albumin 2.6 L LDL Cholesterol Direct HDL Cholesterol TSH Free T4 Acetaminophen JULIA Screen Coronavirus (PCR) 12/18/20 12/18/20 12/18/20 05:57 08:03 08:14 WBC RBC Hgb Hct MCV MCHC RDW Plt Count Lymph % (Auto) [place] % (Auto) [place] # (Auto) Seg Neutrophils % Seg Neutrophils # PT INR APTT D-Dimer Sodium Potassium Chloride Carbon Dioxide BUN Creatinine Glucose POC Glucose 45 L 163 H Hemoglobin A1c 7.1 H Lactic Acid Calcium Ferritin Total Bilirubin Direct Bilirubin AST ALT Alkaline Phosphatase Lactate Dehydrogenase CK-MB (CK-2) CK-MB (CK-2) Rel Index Troponin T C-Reactive Protein Total Protein Albumin LDL Cholesterol Direct HDL Cholesterol TSH Free T4 Acetaminophen JULIA Screen Coronavirus (PCR) 12/18/20 12/18/20 12/18/20 10:04 11:40 18:00 WBC RBC Hgb Hct MCV MCHC RDW Plt Count Lymph % (Auto) [place] % (Auto) [place] # (Auto) Seg Neutrophils % Seg Neutrophils # PT INR APTT D-Dimer Sodium Potassium Chloride Carbon Dioxide BUN Creatinine Glucose POC Glucose 129 H 128 H 161 H Hemoglobin A1c Lactic Acid Calcium Ferritin Total Bilirubin Direct Bilirubin AST ALT Alkaline Phosphatase Lactate Dehydrogenase CK-MB (CK-2) CK-MB (CK-2) Rel Index Troponin T C-Reactive Protein Total Protein Albumin LDL Cholesterol Direct HDL Cholesterol TSH Free T4 Acetaminophen JULIA Screen Coronavirus (PCR) 12/18/20 12/19/20 12/19/20 21:40 01:26 05:49 WBC RBC Hgb Hct MCV MCHC RDW Plt Count Lymph % (Auto) [place] % (Auto) [place] # (Auto) Seg Neutrophils % Seg Neutrophils # PT INR APTT D-Dimer Sodium Potassium Chloride Carbon Dioxide BUN Creatinine Glucose POC Glucose 138 H 148 H 136 H Hemoglobin A1c Lactic Acid Calcium Ferritin Total Bilirubin Direct Bilirubin AST ALT Alkaline Phosphatase Lactate Dehydrogenase CK-MB (CK-2) CK-MB (CK-2) Rel Index Troponin T C-Reactive Protein Total Protein Albumin LDL Cholesterol Direct HDL Cholesterol TSH Free T4 Acetaminophen JULIA Screen Coronavirus (PCR) 12/19/20 12/19/20 12/19/20 06:59 06:59 08:38 WBC 12.1 H RBC 2.76 L Hgb 8.5 L Hct 27.8 L MCV 101 H MCHC RDW 22.3 H Plt Count 82 L Lymph % (Auto) [place] % (Auto) [place] # (Auto) Seg Neutrophils % Seg Neutrophils # PT INR APTT D-Dimer Sodium 147 H Potassium Chloride Carbon Dioxide BUN 21 H Creatinine 3.9 H Glucose 144 H POC Glucose 139 H Hemoglobin A1c Lactic Acid Calcium Ferritin Total Bilirubin 1.70 H Direct Bilirubin 1.2 H AST 871 H ALT 1552 H Alkaline Phosphatase 146 H Lactate Dehydrogenase CK-MB (CK-2) CK-MB (CK-2) Rel Index Troponin T C-Reactive Protein Total Protein 5.6 L Albumin 2.7 L LDL Cholesterol Direct HDL Cholesterol TSH Free T4 Acetaminophen JULIA Screen Coronavirus (PCR) 12/19/20 12/19/20 12/19/20 11:45 16:01 22:03 WBC RBC Hgb Hct MCV MCHC RDW Plt Count Lymph % (Auto) [place] % (Auto) [place] # (Auto) Seg Neutrophils % Seg Neutrophils # PT INR APTT D-Dimer Sodium Potassium Chloride Carbon Dioxide BUN Creatinine Glucose POC Glucose 138 H 141 H 121 H Hemoglobin A1c Lactic Acid Calcium Ferritin Total Bilirubin Direct Bilirubin AST ALT Alkaline Phosphatase Lactate Dehydrogenase CK-MB (CK-2) CK-MB (CK-2) Rel Index Troponin T C-Reactive Protein Total Protein Albumin LDL Cholesterol Direct HDL Cholesterol TSH Free T4 Acetaminophen JULIA Screen Coronavirus (PCR) 12/20/20 12/20/20 12/20/20 03:18 05:46 05:48 WBC RBC Hgb Hct MCV MCHC RDW Plt Count Lymph % (Auto) [place] % (Auto) [place] # (Auto) Seg Neutrophils % Seg Neutrophils # PT INR APTT D-Dimer Sodium 146 H Potassium Chloride 109.6 H Carbon Dioxide 21 L BUN 32 H Creatinine 5.5 H Glucose 124 H POC Glucose 142 H 125 H Hemoglobin A1c Lactic Acid Calcium Ferritin Total Bilirubin Direct Bilirubin AST ALT Alkaline Phosphatase Lactate Dehydrogenase CK-MB (CK-2) CK-MB (CK-2) Rel Index Troponin T C-Reactive Protein Total Protein Albumin LDL Cholesterol Direct HDL Cholesterol TSH Free T4 Acetaminophen JULIA Screen Coronavirus (PCR) 12/20/20 12/20/20 12/20/20 10:26 12:32 12:38 WBC RBC 2.64 L Hgb 8.1 L Hct 26.2 L MCV 99 H MCHC RDW 22.8 H Plt Count 82 L Lymph % (Auto) [place] % (Auto) [place] # (Auto) Seg Neutrophils % Seg Neutrophils # PT INR APTT D-Dimer Sodium Potassium Chloride Carbon Dioxide BUN Creatinine Glucose POC Glucose 139 H 136 H Hemoglobin A1c Lactic Acid Calcium Ferritin Total Bilirubin Direct Bilirubin AST ALT Alkaline Phosphatase Lactate Dehydrogenase CK-MB (CK-2) CK-MB (CK-2) Rel Index Troponin T C-Reactive Protein Total Protein Albumin LDL Cholesterol Direct HDL Cholesterol TSH Free T4 Acetaminophen JULIA Screen Coronavirus (PCR) 12/20/20 12/20/20 12/20/20 16:05 20:00 23:23 WBC RBC Hgb Hct MCV MCHC RDW Plt Count Lymph % (Auto) [place] % (Auto) [place] # (Auto) Seg Neutrophils % Seg Neutrophils # PT INR APTT D-Dimer Sodium Potassium Chloride Carbon Dioxide BUN Creatinine Glucose POC Glucose 123 H 116 H 112 H Hemoglobin A1c Lactic Acid Calcium Ferritin Total Bilirubin Direct Bilirubin AST ALT Alkaline Phosphatase Lactate Dehydrogenase CK-MB (CK-2) CK-MB (CK-2) Rel Index Troponin T C-Reactive Protein Total Protein Albumin LDL Cholesterol Direct HDL Cholesterol TSH Free T4 Acetaminophen JULIA Screen Coronavirus (PCR) 12/21/20 12/21/20 12/22/20 08:38 11:21 03:28 WBC RBC Hgb Hct MCV MCHC RDW Plt Count Lymph % (Auto) [place] % (Auto) [place] # (Auto) Seg Neutrophils % Seg Neutrophils # PT INR APTT D-Dimer Sodium Potassium Chloride Carbon Dioxide BUN Creatinine Glucose POC Glucose 127 H 117 H 125 H Hemoglobin A1c Lactic Acid Calcium Ferritin Total Bilirubin Direct Bilirubin AST ALT Alkaline Phosphatase Lactate Dehydrogenase CK-MB (CK-2) CK-MB (CK-2) Rel Index Troponin T C-Reactive Protein Total Protein Albumin LDL Cholesterol Direct HDL Cholesterol TSH Free T4 Acetaminophen JULIA Screen Coronavirus (PCR) 12/22/20 12/22/20 12/22/20 05:06 05:06 07:42 WBC RBC 2.82 L Hgb 8.8 L Hct 28.6 L MCV 101 H MCHC RDW 23.8 H Plt Count 67 L Lymph % (Auto) [place] % (Auto) [place] # (Auto) Seg Neutrophils % Seg Neutrophils # PT INR APTT D-Dimer Sodium Potassium Chloride Carbon Dioxide BUN 30 H Creatinine 5.1 H Glucose 123 H POC Glucose 117 H Hemoglobin A1c Lactic Acid Calcium 8.3 L Ferritin Total Bilirubin 2.70 H Direct Bilirubin AST 150 H ALT 644 H Alkaline Phosphatase 148 H Lactate Dehydrogenase CK-MB (CK-2) CK-MB (CK-2) Rel Index Troponin T C-Reactive Protein Total Protein 5.6 L Albumin 2.3 L LDL Cholesterol Direct HDL Cholesterol TSH Free T4 Acetaminophen JULIA Screen Coronavirus (PCR) 12/22/20 12/22/20 12/22/20 11:45 16:22 16:37 WBC RBC Hgb 9.4 L Hct MCV MCHC RDW Plt Count Lymph % (Auto) [place] % (Auto) [place] # (Auto) Seg Neutrophils % Seg Neutrophils # PT INR APTT D-Dimer Sodium Potassium Chloride Carbon Dioxide BUN Creatinine Glucose POC Glucose 113 H 115 H Hemoglobin A1c Lactic Acid Calcium Ferritin Total Bilirubin Direct Bilirubin AST ALT Alkaline Phosphatase Lactate Dehydrogenase CK-MB (CK-2) CK-MB (CK-2) Rel Index Troponin T C-Reactive Protein Total Protein Albumin LDL Cholesterol Direct HDL Cholesterol TSH Free T4 Acetaminophen JULIA Screen Coronavirus (PCR) 12/22/20 12/22/20 12/23/20 19:52 23:35 04:17 WBC RBC Hgb Hct MCV MCHC RDW Plt Count Lymph % (Auto) [place] % (Auto) [place] # (Auto) Seg Neutrophils % Seg Neutrophils # PT INR APTT D-Dimer Sodium Potassium Chloride Carbon Dioxide BUN Creatinine Glucose POC Glucose 119 H 143 H 170 H Hemoglobin A1c Lactic Acid Calcium Ferritin Total Bilirubin Direct Bilirubin AST ALT Alkaline Phosphatase Lactate Dehydrogenase CK-MB (CK-2) CK-MB (CK-2) Rel Index Troponin T C-Reactive Protein Total Protein Albumin LDL Cholesterol Direct HDL Cholesterol TSH Free T4 Acetaminophen JULIA Screen Coronavirus (PCR) 12/23/20 12/23/20 12/23/20 06:06 07:31 08:14 WBC RBC 3.03 L Hgb 8.8 L 9.6 L Hct 28.1 L MCV 100 H MCHC RDW 25.2 H Plt Count 54 L Lymph % (Auto) [place] % (Auto) [place] # (Auto) Seg Neutrophils % Seg Neutrophils # PT INR APTT D-Dimer Sodium Potassium Chloride Carbon Dioxide BUN Creatinine Glucose POC Glucose 174 H Hemoglobin A1c Lactic Acid Calcium Ferritin Total Bilirubin Direct Bilirubin AST ALT Alkaline Phosphatase Lactate Dehydrogenase CK-MB (CK-2) CK-MB (CK-2) Rel Index Troponin T C-Reactive Protein Total Protein Albumin LDL Cholesterol Direct HDL Cholesterol TSH Free T4 Acetaminophen JULIA Screen Coronavirus (PCR) 12/23/20 12/23/20 12/23/20 14:56 16:49 23:44 WBC RBC Hgb 9.1 L Hct 29.6 L MCV MCHC RDW Plt Count Lymph % (Auto) [place] % (Auto) [place] # (Auto) Seg Neutrophils % Seg Neutrophils # PT INR APTT D-Dimer Sodium Potassium Chloride Carbon Dioxide BUN Creatinine Glucose POC Glucose 212 H 223 H Hemoglobin A1c Lactic Acid Calcium Ferritin Total Bilirubin Direct Bilirubin AST ALT Alkaline Phosphatase Lactate Dehydrogenase CK-MB (CK-2) CK-MB (CK-2) Rel Index Troponin T C-Reactive Protein Total Protein Albumin LDL Cholesterol Direct HDL Cholesterol TSH Free T4 Acetaminophen JULIA Screen Coronavirus (PCR) 12/24/20 12/24/20 12/24/20 12:30 18:32 Unknown WBC RBC Hgb Hct MCV MCHC RDW Plt Count Lymph % (Auto) [place] % (Auto) [place] # (Auto) Seg Neutrophils % Seg Neutrophils # PT INR APTT D-Dimer Sodium Potassium Chloride Carbon Dioxide BUN Creatinine Glucose POC Glucose 297 H 309 H Hemoglobin A1c Lactic Acid Calcium Ferritin Total Bilirubin Direct Bilirubin AST ALT Alkaline Phosphatase Lactate Dehydrogenase CK-MB (CK-2) CK-MB (CK-2) Rel Index Troponin T C-Reactive Protein Total Protein Albumin LDL Cholesterol Direct HDL Cholesterol TSH Free T4 Acetaminophen JULIA Screen Coronavirus (PCR) Positive A 12/25/20 12/25/20 12/25/20 00:07 07:02 15:30 WBC RBC Hgb Hct MCV MCHC RDW Plt Count Lymph % (Auto) [place] % (Auto) [place] # (Auto) Seg Neutrophils % Seg Neutrophils # PT INR APTT D-Dimer Sodium Potassium Chloride Carbon Dioxide BUN 24 H Creatinine 3.2 H Glucose 227 H POC Glucose 190 H 188 H Hemoglobin A1c Lactic Acid Calcium Ferritin Total Bilirubin Direct Bilirubin AST ALT Alkaline Phosphatase Lactate Dehydrogenase CK-MB (CK-2) CK-MB (CK-2) Rel Index Troponin T C-Reactive Protein Total Protein Albumin LDL Cholesterol Direct HDL Cholesterol TSH Free T4 Acetaminophen JULIA Screen Coronavirus (PCR) 12/25/20 12/25/20 12/26/20 16:20 22:19 06:24 WBC RBC Hgb Hct MCV MCHC RDW Plt Count Lymph % (Auto) [place] % (Auto) [place] # (Auto) Seg Neutrophils % Seg Neutrophils # PT INR APTT D-Dimer Sodium Potassium Chloride Carbon Dioxide BUN Creatinine Glucose POC Glucose 227 H 266 H 224 H Hemoglobin A1c Lactic Acid Calcium Ferritin Total Bilirubin Direct Bilirubin AST ALT Alkaline Phosphatase Lactate Dehydrogenase CK-MB (CK-2) CK-MB (CK-2) Rel Index Troponin T C-Reactive Protein Total Protein Albumin LDL Cholesterol Direct HDL Cholesterol TSH Free T4 Acetaminophen JULIA Screen Coronavirus (PCR) 12/26/20 12/26/20 12/26/20 07:51 12:40 17:34 WBC RBC 2.92 L Hgb 9.4 L Hct 29.6 L MCV 102 H MCHC RDW 25.1 H Plt Count 58 L Lymph % (Auto) [place] % (Auto) [place] # (Auto) Seg Neutrophils % Seg Neutrophils # PT INR APTT D-Dimer Sodium Potassium Chloride Carbon Dioxide BUN Creatinine Glucose POC Glucose 155 H 208 H Hemoglobin A1c Lactic Acid Calcium Ferritin Total Bilirubin Direct Bilirubin AST ALT Alkaline Phosphatase Lactate Dehydrogenase CK-MB (CK-2) CK-MB (CK-2) Rel Index Troponin T C-Reactive Protein Total Protein Albumin LDL Cholesterol Direct HDL Cholesterol TSH Free T4 Acetaminophen [facility] Screen Coronavirus (PCR) 12/26/20 12/26/20 12/26/20 19:48 19:48 19:48 WBC RBC Hgb Hct MCV MCHC RDW Plt Count Lymph % (Auto) [place] % (Auto) [place] # (Auto) Seg Neutrophils % Seg Neutrophils # PT INR APTT D-Dimer 1585.97 H Sodium Potassium Chloride Carbon Dioxide BUN Creatinine Glucose POC Glucose Hemoglobin A1c Lactic Acid Calcium Ferritin 3421.0 H Total Bilirubin Direct Bilirubin AST ALT Alkaline Phosphatase Lactate Dehydrogenase 581 H CK-MB (CK-2) CK-MB (CK-2) Rel Index Troponin T C-Reactive Protein 9.30 H Total Protein Albumin LDL Cholesterol Direct HDL Cholesterol TSH Free T4 Acetaminophen JULIA Screen Coronavirus (PCR) 12/26/20 12/26/20 12/27/20 19:48 23:31 05:55 WBC RBC Hgb Hct MCV MCHC RDW Plt Count Lymph % (Auto) [place] % (Auto) [place] # (Auto) Seg Neutrophils % Seg Neutrophils # PT INR APTT D-Dimer Sodium Potassium 5.3 H D Chloride Carbon Dioxide BUN Creatinine Glucose POC Glucose 253 H 248 H Hemoglobin A1c Lactic Acid Calcium Ferritin Total Bilirubin Direct Bilirubin AST ALT Alkaline Phosphatase Lactate Dehydrogenase CK-MB (CK-2) CK-MB (CK-2) Rel Index Troponin T 0.735 H* C-Reactive Protein Total Protein Albumin LDL Cholesterol Direct HDL Cholesterol TSH Free T4 Acetaminophen JULIA Screen Coronavirus (PCR) 12/27/20 12/27/20 12/27/20 11:54 17:08 21:39 WBC RBC Hgb Hct MCV MCHC RDW Plt Count Lymph % (Auto) [place] % (Auto) [place] # (Auto) Seg Neutrophils % Seg Neutrophils # PT INR APTT D-Dimer Sodium Potassium Chloride Carbon Dioxide BUN Creatinine Glucose POC Glucose 254 H 269 H 249 H Hemoglobin A1c Lactic Acid Calcium Ferritin Total Bilirubin Direct Bilirubin AST ALT Alkaline Phosphatase Lactate Dehydrogenase CK-MB (CK-2) CK-MB (CK-2) Rel Index Troponin T C-Reactive Protein Total Protein Albumin LDL Cholesterol Direct HDL Cholesterol TSH Free T4 Acetaminophen JULIA Screen Coronavirus (PCR) 12/28/20 12/28/20 12/28/20 05:48 05:48 05:48 WBC RBC 2.89 L Hgb 9.3 L Hct 29.6 L MCV 102 H MCHC RDW 24.5 H Plt Count 78 L Lymph % (Auto) [place] % (Auto) 12.1 H [place] # (Auto) 1.0 H Seg Neutrophils % 73.6 H Seg Neutrophils # PT 17.1 H INR 1.34 H APTT D-Dimer Sodium Potassium Chloride 97.9 L Carbon Dioxide BUN 39 H Creatinine 3.5 H Glucose 186 H POC Glucose Hemoglobin A1c Lactic Acid Calcium Ferritin Total Bilirubin Direct Bilirubin AST ALT Alkaline Phosphatase Lactate Dehydrogenase CK-MB (CK-2) CK-MB (CK-2) Rel Index Troponin T C-Reactive Protein Total Protein Albumin LDL Cholesterol Direct HDL Cholesterol TSH Free T4 Acetaminophen JULIA Screen Coronavirus (PCR) 12/28/20 12/28/20 12/28/20 05:51 12:05 15:37 WBC RBC 2.98 L Hgb 9.4 L Hct MCV 107 H MCHC 29 L RDW 25.0 H Plt Count 90 L Lymph % (Auto) [place] % (Auto) [place] # (Auto) Seg Neutrophils % Seg Neutrophils # PT INR APTT D-Dimer Sodium Potassium Chloride Carbon Dioxide BUN Creatinine Glucose POC Glucose 169 H 208 H Hemoglobin A1c Lactic Acid Calcium Ferritin Total Bilirubin Direct Bilirubin AST ALT Alkaline Phosphatase Lactate Dehydrogenase CK-MB (CK-2) CK-MB (CK-2) Rel Index Troponin T C-Reactive Protein Total Protein Albumin LDL Cholesterol Direct HDL Cholesterol TSH Free T4 Acetaminophen JULIA Screen Coronavirus (PCR) 12/28/20 12/28/20 12/28/20 15:37 15:37 16:09 WBC RBC Hgb Hct MCV MCHC RDW Plt Count Lymph % (Auto) [place] % (Auto) [place] # (Auto) Seg Neutrophils % Seg Neutrophils # PT 17.5 H INR 1.38 H APTT D-Dimer Sodium Potassium Chloride Carbon Dioxide BUN Creatinine 3.9 H Glucose POC Glucose 215 H Hemoglobin A1c Lactic Acid Calcium Ferritin Total Bilirubin Direct Bilirubin AST ALT Alkaline Phosphatase Lactate Dehydrogenase CK-MB (CK-2) CK-MB (CK-2) Rel Index Troponin T C-Reactive Protein Total Protein Albumin LDL Cholesterol Direct HDL Cholesterol TSH Free T4 Acetaminophen JULIA Screen Coronavirus (PCR) 12/28/20 12/29/20 12/29/20 21:29 06:36 12:11 WBC RBC Hgb Hct MCV MCHC RDW Plt Count Lymph % (Auto) [place] % (Auto) [place] # (Auto) Seg Neutrophils % Seg Neutrophils # PT INR APTT D-Dimer Sodium Potassium Chloride Carbon Dioxide BUN Creatinine Glucose POC Glucose 251 H 325 H 352 H Hemoglobin A1c Lactic Acid Calcium Ferritin Total Bilirubin Direct Bilirubin AST ALT Alkaline Phosphatase Lactate Dehydrogenase CK-MB (CK-2) CK-MB (CK-2) Rel Index Troponin T C-Reactive Protein Total Protein Albumin LDL Cholesterol Direct HDL Cholesterol TSH Free T4 Acetaminophen JULIA Screen Coronavirus (PCR) 12/29/20 12/29/20 12/30/20 18:32 20:50 01:19 WBC RBC Hgb Hct MCV MCHC RDW Plt Count Lymph % (Auto) [place] % (Auto) [place] # (Auto) Seg Neutrophils % Seg Neutrophils # PT INR APTT D-Dimer Sodium Potassium Chloride Carbon Dioxide BUN Creatinine Glucose POC Glucose 321 H 289 H 258 H Hemoglobin A1c Lactic Acid Calcium Ferritin Total Bilirubin Direct Bilirubin AST ALT Alkaline Phosphatase Lactate Dehydrogenase CK-MB (CK-2) CK-MB (CK-2) Rel Index Troponin T C-Reactive Protein Total Protein Albumin LDL Cholesterol Direct HDL Cholesterol TSH Free T4 Acetaminophen JUL[facility] Screen Coronavirus (PCR) 12/30/20 12/30/20 12/30/20 05:52 12:10 15:01 WBC 15.2 H RBC 2.94 L Hgb 9.2 L Hct 29.3 L MCV 100 H MCHC RDW 24.2 H Plt Count Lymph % (Auto) [place] % (Auto) [place] # (Auto) Seg Neutrophils % Seg Neutrophils # PT INR APTT D-Dimer Sodium Potassium Chloride Carbon Dioxide BUN Creatinine Glucose POC Glucose 228 H 228 H Hemoglobin A1c Lactic Acid Calcium Ferritin Total Bilirubin Direct Bilirubin AST ALT Alkaline Phosphatase Lactate Dehydrogenase CK-MB (CK-2) CK-MB (CK-2) Rel Index Troponin T C-Reactive Protein Total Protein Albumin LDL Cholesterol Direct HDL Cholesterol TSH Free T4 Acetaminophen JULIA Screen Coronavirus (PCR) 12/30/20 12/30/20 12/31/20 15:01 17:47 00:18 WBC RBC Hgb Hct MCV MCHC RDW Plt Count Lymph % (Auto) [place] % (Auto) [place] # (Auto) Seg Neutrophils % Seg Neutrophils # PT INR APTT D-Dimer Sodium 135 L Potassium Chloride 93.3 L Carbon Dioxide BUN 80 H Creatinine 5.5 H Glucose 193 H POC Glucose 198 H 214 H Hemoglobin A1c Lactic Acid Calcium Ferritin Total Bilirubin 1.50 H Direct Bilirubin AST 65 H ALT 133 H Alkaline Phosphatase 268 H Lactate Dehydrogenase CK-MB (CK-2) CK-MB (CK-2) Rel Index Troponin T C-Reactive Protein Total Protein 5.8 L Albumin 2.9 L LDL Cholesterol Direct HDL Cholesterol TSH Free T4 Acetaminophen JULIA Screen Coronavirus (PCR) 12/31/20 12/31/20 12/31/20 06:15 12:20 17:48 WBC RBC Hgb Hct MCV MCHC RDW Plt Count Lymph % (Auto) [place] % (Auto) [place] # (Auto) Seg Neutrophils % Seg Neutrophils # PT INR APTT D-Dimer Sodium Potassium Chloride Carbon Dioxide BUN Creatinine 3.8 H Glucose POC Glucose 197 H 293 H Hemoglobin A1c Lactic Acid Calcium Ferritin Total Bilirubin Direct Bilirubin AST ALT Alkaline Phosphatase Lactate Dehydrogenase CK-MB (CK-2) CK-MB (CK-2) Rel Index Troponin T C-Reactive Protein Total Protein Albumin LDL Cholesterol Direct HDL Cholesterol TSH Free T4 Acetaminophen JULIA Screen Coronavirus (PCR) 01/01/21 01/01/21 01/01/21 00:14 05:18 06:26 WBC 18.6 H RBC 3.09 L Hgb 10.0 L Hct MCV 106 H MCHC RDW 24.7 H Plt Count Lymph % (Auto) [place] % (Auto) [place] # (Auto) Seg Neutrophils % Seg Neutrophils # PT INR APTT D-Dimer Sodium Potassium Chloride Carbon Dioxide BUN Creatinine Glucose POC Glucose 335 H 328 H Hemoglobin A1c Lactic Acid Calcium Ferritin Total Bilirubin Direct Bilirubin AST ALT Alkaline Phosphatase Lactate Dehydrogenase CK-MB (CK-2) CK-MB (CK-2) Rel Index Troponin T C-Reactive Protein Total Protein Albumin LDL Cholesterol Direct HDL Cholesterol TSH Free T4 Acetaminophen JULIA Screen Coronavirus (PCR) 01/01/21 01/01/21 13:26 16:37 WBC RBC Hgb Hct MCV MCHC RDW Plt Count Lymph % (Auto) [place] % (Auto) [place] # (Auto) Seg Neutrophils % Seg Neutrophils # PT INR APTT D-Dimer Sodium Potassium Chloride Carbon Dioxide BUN Creatinine Glucose POC Glucose 287 H 219 H Hemoglobin A1c Lactic Acid Calcium Ferritin Total Bilirubin Direct Bilirubin AST ALT Alkaline Phosphatase Lactate Dehydrogenase CK-MB (CK-2) CK-MB (CK-2) Rel Index Troponin T C-Reactive Protein Total Protein Albumin LDL Cholesterol Direct HDL Cholesterol TSH Free T4 Acetaminophen JUL[facility] Screen Coronavirus (PCR)
[2021-01-02] MEDS: INSULIN REGULAR, HUMAN 100 UNITS/1 ML SUB-Q SCH ×4 (00:19→19:08)
[2021-01-02] MEDS: ASCORBIC ACID 500 MG TAB PO SCH ×3 (00:21→22:10)
[2021-01-02] MEDS: METOPROLOL TARTRATE 50 MG TAB PO SCH ×4 (00:22→22:10)
[2021-01-02] MEDS: MIDODRINE 5 MG TAB PO SCH ×3 (06:54→19:08)
--- NOTE | 2021-01-02 08:58 | Progress Note ---
Assessment and Plan - Patient Problems (1) Elevated troponin Current Visit: Yes Status: Acute Plan to address problem: Troponin elevation, nonspecific finding in the setting of end-stage renal failure. An echocardiogram shows a four-chamber dilated cardiomyopathy, left ventricular ejection fraction 30 to 35%. There is mild to moderate mitral stenosis, moderate to severe mitral regurgitation, moderate to severe tricuspid regurgitation and severe pulmonary hypertension. Conservative medical therapy as tolerated for cardiomyopathy and valvular heart disease. Subjective Date of service: 01/02/21 Principal diagnosis: change in mentation,ESRD Interval history: Patient is resting in bed with eyes closed. No cardiac event reported overnight. Objective Vital Signs Temp Pulse Resp BP Pulse Ox Pulse Ox Pulse Ox 01/02/21 02:00 95 01/01/21 22:58 98.3 F 98 H 24 116/24 97 01/01/21 22:00 97 01/01/21 20:00 88 01/01/21 14:00 94 01/01/21 13:15 97.7 F 92 H 18 131/46 100 99 01/01/21 13:05 88 151/41 01/01/21 12:45 88 137/45 01/01/21 12:30 87 134/43 01/01/21 12:15 86 152/42 01/01/21 12:00 90 135/46 01/01/21 11:45 88 141/62 01/01/21 11:30 86 137/44 01/01/21 11:15 84 146/47 01/01/21 11:00 84 112/48 01/01/21 10:45 83 125/40 01/01/21 10:30 82 128/40 01/01/21 10:15 81 132/45 01/01/21 10:05 80 153/48 01/01/21 10:00 97.9 F 82 20 125/45 93 100 99 01/01/21 09:26 92 Pulse Ox 01/02/21 02:00 01/01/21 22:58 01/01/21 22:00 01/01/21 20:00 01/01/21 14:00 01/01/21 13:15 99 01/01/21 13:05 01/01/21 12:45 01/01/21 12:30 01/01/21 12:15 01/01/21 12:00 01/01/21 11:45 01/01/21 11:30 01/01/21 11:15 01/01/21 11:00 01/01/21 10:45 01/01/21 10:30 01/01/21 10:15 01/01/21 10:05 01/01/21 10:00 99 01/01/21 09:26 - Physical Examination Narrative exam: Deferred due to isolation protocol. General: No Apparent Distress, Cachectic Cardiac: Positive: Reg Rate and Rhythm
--- NOTE | 2021-01-02 09:37 | Progress Note ---
Assessment and Plan 1. ESRD: Patient is on maintenance hemodialysis three times a week, MWF schedule. Meds dosage based on GFR. Hemodialysis: 12/16, 12/18, 12/20, 12/23, 12/25, 12/27, 12/30, 01/01. 2. FEN: Hyperkalemia, improved. Anion-gap metabolic acidosis, improved. Monitor lytes and volume status. 3. Anemia, POA: 2/2 ESRD. Epogen with HD. 4. Acute metabolic encephalopathy, POA: CT head negative. Seen by Neuro. Monitor. 5. Sepsis, POA: S/p Abx. Bl culture negative. 6. Elevated Troponin // Dilated cardiomyopathy: 2D echo showed EF 30 to 35%. Cardiology following and recommended medical management. 7. Diabetes mellitus type 2: Accu-Cheks and SSI. 8. Bilateral lower extremity pressure sore ulcer, unstageable: S/p debridement on 12/27. Also followed by Vascular. 9. Hypotension: Midodrine. Monitor BP. 10. Elevated ALT / AST: Improving. 11. Thrombocytopenia: Improved. Prognosis is slim. Subjective: Patient was seen and examined at the bedside. General Appearance: General appearance: well-developed, appears stated age, not in distress, NC O2, NG tube HEENT: ATNC, pupils equal Neck: trachea midline Respiratory: decreased breath sounds Heart: regular, S1S2, no murmur Abdomen: soft, bowel sounds heard, not tender Integumentary: b/l leg dressing noted Neurologic: lethargic, not following any command, not conversing Ext: no edema Hemodialysis access: L IJ tunnel catheter Subjective Date of service: 01/02/21 Principal diagnosis: change in mentation,ESRD Objective - Vital Signs Vital signs: Vital Signs - 12hr 01/01/21 01/01/21 01/02/21 22:00 22:58 02:00 Temperature 98.3 F Pulse Rate 98 H Respiratory 24 Rate Blood Pressure 116/24 O2 Sat by Pulse 97 97 95 Oximetry - Lab 01/01/21 05:18 12/31/20 17:48 Most recent lab results Calcium 8.7 mg/dL (8.4-10.2) 12/30/20 15:01 Magnesium 2.00 mg/dL (1.7-2.3) 12/26/20 19:48 Magnesium 2.00 mg/dL (1.7-2.3) 12/26/20 19:48 Medications & Allergies - Medications Allergies/Adverse Reactions: Allergies No Known Allergies Allergy (Verified 12/11/20 17:11) Home Medications: Home Medications Medication Instructions Recorded Confirmed Last Taken Type Apixaban [Eliquis] 5 mg PO BID 12/16/20 12/16/20 Unknown History Aspirin [Adult Aspirin] 81 mg PO QDAY 12/16/20 12/16/20 Unknown History Escitalopram [Lexapro] 10 mg PO DAILY 12/16/20 12/16/20 Unknown History Gabapentin 300 mg PO QDAY 12/16/20 12/16/20 Unknown History Levemir Flextouch 6 units SUB-Q HS 12/16/20 12/22/20 Unknown History Midodrine [Proamatine] 15 mg PO TID 12/16/20 12/16/20 Unknown History NovoLOG Flexpen 6 units SUB-Q BID 12/16/20 12/22/20 Unknown History Pantoprazole [Protonix] 40 mg PO QDAY 12/16/20 12/16/20 Unknown History Vit B Comp No.3/Folic/C/Biotin 1 each PO DAILY 12/16/20 12/16/20 Unknown History [Nephro-Nola Rx Tablet] sevelamer HCL [Sevelamer HCl] 800 mg PO TID 12/16/20 12/16/20 Unknown History Active Medications: Generic Name Dose Route Start Last Admin Trade Name Freq PRN Reason Stop Dose Admin Lipase/Protease/Amylase 1 each 12/22/20 10:34 Lipase 10,500/Protease 25,000/Amylase 43,750 (Units) Dr Lazar FEEDTUBE PRN PRN For Clogged Feeding Tube Ascorbic Acid 1,000 mg 12/26/20 22:00 01/02/21 00:21 Ascorbic Acid 500 Mg Tab PO 1,000 mg BID JEET Administration Cholecalciferol 5,000 unit 12/26/20 15:00 01/01/21 11:29 Cholecalciferol (Vit D3) 5,000 Unit Tab PO Not Given DAILY JEET Dexamethasone 6 mg 12/26/20 15:00 01/01/21 15:33 Dexamethasone 4 Mg Tab PO 01/04/21 10:01 6 mg Q24HR JEET Administration Dextrose 0 ml 12/16/20 03:40 12/18/20 08:23 Dextrose 50% In Water (25gm) 50 Ml Syringe IV 50 ml Q30MIN PRN Administration Hypoglycemia Protocol Sodium Chloride 100 mls @ 999 mls/hr 12/20/20 09:20 Nacl 0.9% IV ROSA M PRN Hypotension Insulin Human Regular 0 units 12/24/20 18:00 01/02/21 06:53 Insulin Regular, Human 100 Units/1 Ml SUB-Q 2 units Q6HR JEET Administration Protocol Lansoprazole 30 mg 12/25/20 10:00 01/01/21 11:29 Lansoprazole 30 Mg Solutab FEEDTUBE Not Given QDAY JEET Magnesium Hydroxide 30 ml 12/16/20 03:40 Magnesium Hydroxide (Mom) Oral Liqd Udc PO Q4H PRN Constipation Metoprolol Tartrate 50 mg 12/26/20 22:00 01/02/21 00:24 Metoprolol Tartrate 50 Mg Tab PO Not Given BID JEET Midodrine 15 mg 12/31/20 18:00 01/02/21 06:54 Midodrine 5 Mg Tab PO 15 mg 0600,1200,1800 JEET Administration Morphine Sulfate 0.5 mg 12/18/20 13:00 12/31/20 23:04 Morphine 2 Mg/1 Ml Inj IV 0.5 mg Q6H PRN Administration Pain, Moderate (4-6) Ondansetron HCl 4 mg 12/16/20 03:40 Ondansetron 4 Mg/2 Ml Inj IV Q8H PRN Nausea And Vomiting Simple Syrup 15 ml 12/22/20 08:19 Simple Syrup 15 Ml FEEDTUBE PRN PRN Hypoglycemia Simple Syrup 30 ml 12/22/20 08:19 Simple Syrup 15 Ml FEEDTUBE PRN PRN Hypoglycemia Sodium Bicarbonate 325 mg 12/22/20 10:34 Sodium Bicarbonate 325 Mg Tab FEEDTUBE PRN PRN For Clogged Feeding Tube Sodium Chloride 10 ml 12/16/20 10:00 01/02/21 00:23 Sodium Chloride 0.9% 10 Ml Flush Syringe IV 10 ml BID JEET Administration Sodium Chloride 10 ml 12/16/20 03:40 Sodium Chloride 0.9% 10 Ml Flush Syringe IV PRN PRN LINE FLUSH
[2021-01-02] MEDS: CHOLECALCIFEROL (VIT D3) 5,000 UNIT TAB PO SCH (09:52)
[2021-01-02] MEDS: DEXAMETHASONE 4 MG TAB PO SCH (09:52)
[2021-01-02] MEDS: LANSOPRAZOLE 30 MG SOLUTAB FEEDTUBE SCH (09:52)
--- NOTE | 2021-01-02 10:25 | Progress Note ---
Assessment and Plan Assessment and plan: The patient is a 70 YO female with history significant for Hypertension, Anemia, Arthritis, CAD s/p CABG and ESRD on hemodialysis (MWF) who presented to [facility] ED 12/16 with altered mental status. Patient was recently seen here in this hospital about a week ago with hyperkalemia during which she had emergent dialysis. She has had a COVID-19 vaccination. Work-up in the emergency room showed wbc 18.2, INR of 2.8, K 5.4, BUN 34, creatinine 5.6, Lactic acid of 6.6, elevated liver enzymes with AST 2838 and ALT 1353 and Troponin 0.72. Chest x-ray showed reduced lung volumes with probable bilateral atelectasis/edema. CT scan of the head showed no acute findings. Patient has been admitted with altered mental status, hyperkalemia, lactic acidosis, elevated liver enzymes and elevated troponin. Now she is tested positive for COVID-19: 12/25 Assessment and plan: --Positive COVID-19 infection -Patient tested positive for COVID-19 virus on 12/25 -Initiated on dexamethasone, not a candidate for remdesivir for ESRD -Consult ID and follow recommendation -Droplet/contact isolation -Continue SPO2 monitoring -Supplemental oxygen as needed -Pulmonary hygiene -Prone to sleep -Vitamin C, vitamin D, zinc -Anticoagulation per protocol --Acute hypoxic respiratory failure, likely due to COVID-19 pneumonia and underlying CHF Patient was resting on 2 L nasal cannula but currently placed on 8 L consulted pulmonary critical care, scheduled nebulizer breathing treatment, empiric steroid Wean off O2 as tolerated --Hypotension, now improved BP dropped to around 40s on 12/31 initiated home dose of midodrine Continue to follow clinically --Acute metabolic encephalopathy Possibly secondary to multiple underlying problems including possible sepsis, end-stage renal disease with hyperkalemia and elevated liver enzymes. Will monitor mental status. MRI brain without any acute infarct, neurology consulted and recommended to obtain EEG which is pending Patient remains pleasantly confused, continue supportive care and tube feeding --Suspected sepsis sepsis, POA No clear source of infection yet, completed Cefepime and Vancomycin ID following --Thrombocytopenia may be due to Sepsis. To r/o HIT She did not get any Heparin this admission but got Heparin last admission just few days earlier Obtain HIT test Consulted Hematology, discontinued all heparin and anticoagulation -- ESRD (end stage renal disease) Nephrology consulted for hemodialysis, follow BMP, avoid nephrotoxic agents --Hyperkalemia Possibly secondary to the end-stage renal disease. Patient treated with Kayexalate, insulin/glucose, sodium bicarb and will monitor potassium levels. --Elevated liver enzymes Etiology unclear, likely due to shock liver GI was consulted, liver serologies are negative Continue to trend and medical management --Elevated troponin/NSTEMI type II Possibly secondary to the underlying end-stage renal disease versus dilated cardiomyopathy versus sepsis. However we trend cardiac enzymes and request cardiology evaluation and recommendations. 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 We will monitor Accu-Cheks closely. --Bilateral lower extremity pressure sore ulcer and extensive PVD, unstageable Dr. Odom consulted and status post debridement on 12/27 Vascular recommended endovascular procedure when pt clinically more stable --Elevated JULIA Antidouble-stranded DNA marker is normal Likely patient has underlying auto inflammatory disease Need further outpatient, continue to follow clinically for now --DVT prophylaxis SCD for possible HIT, Eliquis is discontinued by hematology --Full code status Daily clinical course: 12/17/20 Patient with ESRD on hemodialysis presents with altered mental status, acute metabolic encephalopathy. Also has markedly elevated AST and ALT GI consulted. Her LFTs were normal last admission just 5 days ago. 12/18/20 Patient with ESRD on hemodialysis. Rapid response called this morning. She is very lethargic, minimal responsive. Bld glucose 45mg/dl and BP 74/15. She was given 1 amp D50. Blood glucose now 163. BP up to 123/30 but MAP still under 65. Will give 500 ml Normal Saline and transfer to [facility].I discussed with Dr. Chong, Nephrology. LFTs improving though still very high. 12/19/20 Patient with ESRD on hemodialysis. Rapid response called yesterday for hypoglycemia and hypotension, so transferred to [facility]. Blood glucose normalized. BP improved. 12/20/20 Patient with ESRD on hemodialysis. Presented with altered mental status. Was transferred to [facility] on 12/18/20. Still has altered mental status, very lethargic. MRI ordered. Neurology consulted. 12/21/20 Patient with ESRD on hemodialysis. Presented with altered mental status. Was transferred to [facility] on 12/18/20. Still has altered mental status, very lethargic. MRI ordered. EEG ordered. Patient ws evaluated by Neurology. Will talk to family. 12/22/20 Patient with ESRD on hemodialysis, diabetes,hypertension. She presented with altered mental status. She has been diagnosed with sepsis(POA), hypoglycemia, hypotension, thrombocytopenia. Was transferred to [facility] on 12/18/20 because of episode of hypoglycemia and hypotension. . Still has altered mental status, very lethargic. Neurology was consulted MRI ordered. EEG ordered. I spoke to daughter Michelle Kruger yesterday and gave update. For thrombocytopenia, will obtain HIT. Consult Hematology For blood in stool, will re-consult GI. Check H/H serially Elevated LFTs likely due to shock liver, improving 12/23/20 Patient with ESRD on hemodialysis, diabetes,hypertension. She present ed with altered mental status. She has been diagnosed with sepsis(POA), hypoglycemia, hypotension, thrombocytopenia. Was transferred to [facility] on 12/18/20 because of episode of hypoglycemia and hypotension. . Still has altered mental status, very lethargic. Neurology was consulted MRI ordered. EEG ordered. I spoke to daughter Michelle Kruger few days ago and gave update. Patient has thrombocytopenia, worsening 54 today. Consult Hematology. HIT ordered For blood in stool, will re-consult GI. Check H/H serially Elevated LFTs likely due to shock liver, improving. Was initially evaluated by GI patient stable to transfer back to [facility] since BP stable. 12/24/20; MRI brain yesterday showed extensive chronic changes but no acute infarct. Patient remains confused on TF. speech recommended pureed diet on prior assessment- will initiate. cont to follow 12/25/20: Ordered for Covid test, patient remains very lethargic, unable to tolerate p.o. we will continue on tube feeding. Continue supportive care. Evaluated by Dr. Odom at the bedside for bilateral lower extremity wound. Plan for debridement, continue to follow 12/26/20: Patient tested positive for COVID-19. Transfer to [facility]/Covid unit. Will place on Covid protocol, ID consult, obtain chest x-ray, initiate on dexamethasone. Patient daughter was notified about patient's positive Covid status. Continue to monitor clinically, patient remains confused. 12/27/20: Status post debridement by Dr. Lei today of bilateral lower extremities wound. MRI of lower extremities ordered. Her arterial duplex demonstrates monophasic waveforms throughout bilateral lower extremities, suggesting aortoiliac occlusive disease. She is unlikely to heal her wounds without an angiogram and improvement of her arterial flow in bilateral lower extremities. Vascular surgery consulted, patient will likely require angiogram. Follow inflammatory markers for COVID-19 pneumonia, not a candidate for remdesivir. Continue dexamethasone for now. Unable to start any anticoagulation due to thrombocytopenia. 12/28/20; plan for CT abdomen pelvis with contrast for extensive peripheral vascular disease. Vascular surgery following for possible angiogram. Continue to follow inflammatory markers, continue dexamethasone. Continue tube feeding diet. Speech evaluated the patient and recommended to hold oral diet. Continue to follow. 12/29/20; CT abdomen pelvis tomorrow as patient will need hemodialysis within 24 hours. Remains on tube feeding, wait for repeat speech eval. Continue supportive care. 12/30/20; patient failed swallow eval with speech. had a prolong discussion with daughter about further care and she wants to continue everything possible to be done. I explained patient with bedbound status with multiple pressure sore ulcers with poor healing, ESRD on HD, CHFrEF, extensive PVD, advanced dementia now failed speech eval and nonverbal. patient with all underlying conditions has very poor chance of good quality of life and her condition may continue to deteriorate even after appropriate treatment has given. Daughter stated she understands and still wants to proceed with PEg tube for nutrition and any vascular intervention if needed. I placed consult for GI for PEG placement and updated vascular about daughter's wish. 12/31/20: Patient noted to have more oxygen requirement since this morning, also had significantly low blood pressure SBP 140s. Patient had dialysis yesterday. Will order a stat chest x-ray, will initiate patient home medicine of midodrine. Discussed with daughter thoroughly about change in condition and is she is still wants to continue full CODE STATUS. Patient currently on 8 L nasal cannula, consulted pulmonary critical care. 01/01/21: Patient remains on 8 L nasal cannula O2, BP much stable today. Plan for dialysis. Again discussed with the daughter and patient and brother in length about CODE STATUS, patient care management. Family still in agreement for maintaining full CODE STATUS. Continue supportive care, monitor inflammatory markers and wean off O2 as tolerated. Chronically debilitated patient with multiple medical problems and comorbidities now positive for covid with increasing O2 demand, prognosis is extremely poor. 01/02/21 Patient with Covid-19 infection, acute resp failure. She is now on Oxygen at 10 l/min. She has multiple comorbidities. History Interval history: Patient now on Oxygen at 10l/min Hospitalist Physical - Physical exam Narrative exam: Gen: Not in acute distress, HEENT: Normocephalic, atraumatic Neck : supple, no JVD Lungs: Bilateral crackles, no wheeze Heart:S1 and S2 reg, no murmurs, rubs or gallop Abd: Soft , non tender, non distended, normal bowel sounds Ext: No edema, no clubbing, no cyanosis Neuro: Awake - Constitutional Vitals: Temp Pulse Resp BP Pulse Ox 98.3 F 98 H 24 116/24 89 01/01/21 22:58 01/02/21 09:52 01/01/21 22:58 01/02/21 09:52 01/02/21 08:00 General appearance: Present: no acute distress HEART Score - HEART Score Troponin: Troponin T 0.735 ng/mL (0.00-0.029) H* 12/26/20 19:48 Results - Labs CBC & Chem 7: 01/01/21 05:18 12/31/20 17:48 Labs: Laboratory Last Values WBC 18.6 K/mm3 (4.5-11.0) H 01/01/21 05:18 RBC 3.09 M/mm3 (3.65-5.03) L 01/01/21 05:18 Hgb 10.0 gm/dl (10.1-14.3) L 01/01/21 05:18 Hct 32.7 % (30.3-42.9) 01/01/21 05:18 MCV 106 fl (79-97) H 01/01/21 05:18 MCH 32 pg (28-32) 01/01/21 05:18 MCHC 30 % (30-34) 01/01/21 05:18 RDW 24.7 % (13.2-15.2) H 01/01/21 05:18 Plt Count 167 K/mm3 (140-440) 01/01/21 05:18 Lymph % (Auto) 14.1 % (13.4-35.0) 12/28/20 05:48 Vil[place] % (Auto) 12.1 % (0.0-7.3) H 12/28/20 05:48 Eos % (Auto) 0.0 % (0.0-4.3) 12/28/20 05:48 Baso % (Auto) 0.2 % (0.0-1.8) 12/28/20 05:48 Lymph # (Auto) 1.2 K/mm3 (1.2-5.4) 12/28/20 05:48 Vil[place] # (Auto) 1.0 K/mm3 (0.0-0.8) H 12/28/20 05:48 Eos # (Auto) 0.0 K/mm3 (0.0-0.4) 12/28/20 05:48 Baso # (Auto) 0.0 K/mm3 (0.0-0.1) 12/28/20 05:48 Seg Neutrophils % 73.6 % (40.0-70.0) H 12/28/20 05:48 Seg Neutrophils # 6.1 K/mm3 (1.8-7.7) 12/28/20 05:48 ESR 53 mm/Hr (0-20) 12/23/20 14:56 PT 17.5 Sec. (12.2-14.9) H 12/28/20 15:37 INR 1.38 (0.87-1.13) H 12/28/20 15:37 APTT 28.1 Sec. (24.2-36.6) 12/28/20 15:37 Thrombin Time 16.9 Sec. (15.1-19.6) 12/16/20 00:57 D-Dimer 1585.97 ng/mlDDU (0-234) H 12/26/20 19:48 Heparin Anti-Xa, Unfract Negative (Negative) 12/22/20 16:37 VBG pH 7.334 (7.320-7.420) 12/16/20 00:57 Sodium 135 mmol/L (137-145) L 12/30/20 15:01 Potassium 4.9 mmol/L (3.6-5.0) 12/30/20 15:01 Chloride 93.3 mmol/L (98-107) L 12/30/20 15:01 Carbon Dioxide 22 mmol/L (22-30) 12/30/20 15:01 Anion Gap 25 mmol/L 12/30/20 15:01 BUN 80 mg/dL (7-17) H 12/30/20 15:01 Creatinine 3.8 mg/dL (0.6-1.2) H 12/31/20 17:48 Estimated GFR 14 ml/min 12/31/20 17:48 BUN/Creatinine Ratio 15 % 12/30/20 15:01 Glucose 193 mg/dL (65-100) H 12/30/20 15:01 POC Glucose 240 mg/dL (70-105) H 01/02/21 06:29 Hemoglobin A1c 7.1 % (4-6) H 12/18/20 05:57 Lactic Acid 2.40 mmol/L (0.7-2.0) H* 12/16/20 10:35 Calcium 8.7 mg/dL (8.4-10.2) 12/30/20 15:01 Magnesium 2.00 mg/dL (1.7-2.3) 12/26/20 19:48 Magnesium 2.00 mg/dL (1.7-2.3) 12/26/20 19:48 Ferritin 3421.0 ng/mL (10.0-200.0) H 12/26/20 19:48 Total Bilirubin 1.50 mg/dL (0.1-1.2) H 12/30/20 15:01 Direct Bilirubin 1.2 mg/dL (0-0.2) H 12/19/20 06:59 Indirect Bilirubin 0.5 mg/dL 12/19/20 06:59 AST 65 units/L (5-40) H 12/30/20 15:01 ALT 133 units/L (7-56) H 12/30/20 15:01 Alkaline Phosphatase 268 units/L (35-129) H 12/30/20 15:01 Ammonia 27.0 umol/L (25-60) 12/16/20 00:57 Lactate Dehydrogenase 581 units/L (91-180) H 12/26/20 19:48 Total Creatine Kinase 84 units/L (30-135) 12/16/20 00:57 CK-MB (CK-2) 5.1 ng/mL (0.0-4.0) H 12/16/20 00:57 CK-MB (CK-2) Rel Index 6.0 (0-4) H 12/16/20 00:57 Troponin T 0.735 ng/mL (0.00-0.029) H* 12/26/20 19:48 C-Reactive Protein 9.30 mg/dL (0.00-1.30) H 12/26/20 19:48 Total Protein 5.8 g/dL (6.3-8.2) L 12/30/20 15:01 Albumin 2.9 g/dL (3.9-5) L 12/30/20 15:01 Albumin/Globulin Ratio 1.0 % 12/30/20 15:01 Triglycerides 104 mg/dL (2-149) 12/16/20 00:57 Cholesterol 110 mg/dL (50-199) 12/16/20 00:57 LDL Cholesterol Direct 34 mg/dL (50-130) L 12/16/20 00:57 HDL Cholesterol 64 mg/dL (40-59) H 12/16/20 00:57 Cholesterol/HDL Ratio 1.71 % 12/16/20 00:57 Serotonin Release Assay See scanned results 12/22/20 16:37 Procalcitonin 3.32 ng/mL (<0.15) 12/26/20 19:48 TSH 4.000 mlU/mL (0.270-4.200) 12/17/20 05:42 Free T4 1.54 ng/dL (0.76-1.46) H 12/16/20 00:57 Random Vancomycin 14.3 ug/mL (0-40.0) 12/18/20 05:57 Acetaminophen 5.0 ug/mL (10.0-30.0) L 12/16/20 05:48 Plasma/Serum Alcohol < 0.01 % (0-0.07) 12/16/20 00:57 JULIA Screen Positive (Negative) H 12/17/20 05:42 Double Strand DNA Ab 1 IU/mL (<=4) 12/23/20 14:56 Heparin-induced Plt Ab Negative (Negative) 12/22/20 16:37 UF Heparin High Dose 1 % Release 12/22/20 16:37 MINERVA UFH Low Dose 0.1 1 % Release 12/22/20 16:37 MINERVA UFH Low Dose 0.5 1 % Release 12/22/20 16:37 Coronavirus (PCR) Positive (Negative) A 12/24/20 Unknown Hepatitis A IgM Ab Non-reactive (NonReactive) 12/16/20 03:55 Hep Bs Antigen Non-reactive (Negative) 12/16/20 03:55 Hep B Core IgM Ab Non-reactive (NonReactive) 12/16/20 03:55 Hepatitis C Antibody Non-reactive (NonReactive) 12/16/20 03:55 [place]/IV: Voiding Method Incontinent Active Medications - Current Medications Current Medications: Generic Name Dose Route Start Last Admin Trade Name Freq PRN Reason Stop Dose Admin Lipase/Protease/Amylase 1 each 12/22/20 10:34 Lipase 10,500/Protease 25,000/Amylase 43,750 (Units) Dr Lazar FEEDTUBE PRN PRN For Clogged Feeding Tube Ascorbic Acid 1,000 mg 12/26/20 22:00 01/02/21 09:52 Ascorbic Acid 500 Mg Tab PO 1,000 mg BID JEET Administration Cholecalciferol 5,000 unit 12/26/20 15:00 01/02/21 09:52 Cholecalciferol (Vit D3) 5,000 Unit Tab PO 5,000 unit DAILY JEET Administration Dexamethasone 6 mg 12/26/20 15:00 01/02/21 09:52 Dexamethasone 4 Mg Tab PO 01/04/21 10:01 6 mg Q24HR JEET Administration Dextrose 0 ml 12/16/20 03:40 12/18/20 08:23 Dextrose 50% In Water (25gm) 50 Ml Syringe IV 50 ml Q30MIN PRN Administration Hypoglycemia Protocol Sodium Chloride 100 mls @ 999 mls/hr 12/20/20 09:20 Nacl 0.9% IV ROSA M PRN Hypotension Insulin Human Regular 0 units 12/24/20 18:00 01/02/21 06:53 Insulin Regular, Human 100 Units/1 Ml SUB-Q 2 units Q6HR JEET Administration Protocol Lansoprazole 30 mg 12/25/20 10:00 01/02/21 09:52 Lansoprazole 30 Mg Solutab FEEDTUBE 30 mg QDAY JEET Administration Magnesium Hydroxide 30 ml 12/16/20 03:40 Magnesium Hydroxide (Mom) Oral Liqd Udc PO Q4H PRN Constipation Metoprolol Tartrate 50 mg 12/26/20 22:00 01/02/21 09:52 Metoprolol Tartrate 50 Mg Tab PO Not Given BID JEET Midodrine 15 mg 12/31/20 18:00 01/02/21 06:54 Midodrine 5 Mg Tab PO 15 mg 0600,1200,1800 JEET Administration Morphine Sulfate 0.5 mg 12/18/20 13:00 12/31/20 23:04 Morphine 2 Mg/1 Ml Inj IV 0.5 mg Q6H PRN Administration Pain, Moderate (4-6) Ondansetron HCl 4 mg 12/16/20 03:40 Ondansetron 4 Mg/2 Ml Inj IV Q8H PRN Nausea And Vomiting Simple Syrup 15 ml 12/22/20 08:19 Simple Syrup 15 Ml FEEDTUBE PRN PRN Hypoglycemia Simple Syrup 30 ml 12/22/20 08:19 Simple Syrup 15 Ml FEEDTUBE PRN PRN Hypoglycemia Sodium Bicarbonate 325 mg 12/22/20 10:34 Sodium Bicarbonate 325 Mg Tab FEEDTUBE PRN PRN For Clogged Feeding Tube Sodium Chloride 10 ml 12/16/20 10:00 01/02/21 09:53 Sodium Chloride 0.9% 10 Ml Flush Syringe IV 10 ml BID JEET Administration Sodium Chloride 10 ml 12/16/20 03:40 Sodium Chloride 0.9% 10 Ml Flush Syringe IV PRN PRN LINE FLUSH Nutrition/Malnutrition Assess - Dietary Evaluation Nutrition/Malnutrition Findings: Nutrition Notes Start: 12/16/20 14:32 Freq: Status: Active Protocol: Document 12/31/20 11:20 (Rec: 12/31/20 11:23 [email or web address]) Nutrition Notes Initial or Follow up Reassessment Current Diagnosis CKD (stage V CKD),Diabetes, Hypertension Other Pertinent Diagnosis AMS, Elevated LFTs Current Diet No diet Subjective/Other Information Pt was NPO, no with no diet. Pt plans for PEG but RN unsure when. RN unsure when able to feed pt. Pt was tolerating TF at goal rate. Nutrition Intervention Follow-Up By: 01/02/21 Additional Comments F/u: TF restart and tolerance
[2021-01-02] MEDS ORDERED: SODIUM BICARBONATE 325 MG TAB FEEDTUBE PRN (10:51)
[2021-01-02] MEDS ORDERED: SIMPLE SYRUP 15 ML FEEDTUBE PRN ×2 (10:51)
[2021-01-02] MEDS ORDERED: LIPASE 10,500/PROTEASE 25,000/AMYLASE 43,750 (UNITS) DR CAP FEEDTUBE PRN (10:51)
--- NOTE | 2021-01-02 11:06 | XRay Report ---
CHEST 1 VIEW 01/02/2021 10:00 AM INDICATION / CLINICAL INFORMATION: bilateral rales. COMPARISON: None available. FINDINGS: SUPPORT DEVICES: Stable, satisfactory device positioning. HEART / MEDIASTINUM: Cardiomegaly LUNGS / PLEURA: Mild increased interstitial prominence and opacities in bilateral lungs No pneumothor ax. ADDITIONAL FINDINGS: No significant additional findings. IMPRESSION: No significant change Signer Name: Wally Cesar MD Signed: 01/02/2021 11:02 AM Workstation Name: [employer]
--- NOTE | 2021-01-02 13:49 | Progress Note ---
Assessment and Plan Acute Hypoxemic Respiratory Failure COVID-19 infection Pneumonia vs Pulmonary Edema Dilated cardiomyopathy Hypertension Diabetes mellitus ESRD (end stage renal disease) - get KUB to confirm NGT placement - continue HD/UF for toxin and volume clearance - Remdesivir as per ID/Pulmonary developed protocols (not a candidate) - continue systemic steroids for severe COVID-19 infection - follow repeat COVID tests results - zinc and vitamin C supplementation - Monitor inflammatory markers per facility protocol - ferritin, D-dimer, CRP - therapeutic anticoagulation per system Protocol based on d-dimer and clinical considerations (VTE prophylaxis dose) - Continue contact and airborne isolation - continue to wean supplemental oxygen to keep O2 sats > 92% - bronchodilators (NATE) with pulm hygiene per RT - continue systemic steroids with slow taper - HD/UF per nephrology prescription for toxin and volume clearance - continue to avoid nephrotoxins, renally dose all medications - continue mobility protocols to prevent pressure ulcers - PT/OT as tolerated - Wound care per RN/WCT - continue accuchecks with glycemic control per SSI for target blood glucose < 180 mg/dL - home oxygen evaluation at discharge - GI & VTE prophylaxis - Flu & pneumovax per protocol - Pulmonary out patient follow up for PFTs and optimization of respiratory status - continue other care per attending / other consultants - prn analgesia per pain score ... re-evaluate in am & prn Subjective Date of service: 01/02/21 Principal diagnosis: Ac Hypoxemic Resp Failure; COVID-19 infxn; PNA; CMOP; HTN; DM II; ESRD Interval history: Patient is seen today for: Acute Hypoxemic Respiratory Failure; COVID-19 infection; Pneumonia vs Pulomonary Edema; CMOP; HTN; DM II; ESRD Seen and examined at bedside; 24hour events reviewed; nursing and respiratory care staff consulted; no adverse overnight events reported to me; resting in bed; NGT just replaced; remains encephalopathic; no new issues otherwise Objective Vital Signs - 12hr 01/02/21 01/02/21 01/02/21 02:00 08:00 09:52 Pulse Rate 98 H Blood Pressure 116/24 O2 Sat by Pulse 95 89 Oximetry Constitutional: no acute distress, appears uncomfortable, other (elderlyfemale with mildly increased respiratory effort at rest) Eyes: non-icteric ENT: oropharynx dry Neck: supple, no JVD Effort: mildly labored Ascultation: Bilateral: rales Percussion: Bilateral: not dull Cardiovascular: regular rate and rhythm Gastrointestinal: normoactive bowel sounds, soft, non-tender, non-distended Integumentary: normal Extremities: no cyanosis, pulses normal, other (+ 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 (12.2-14.9) H 12/28/20 15:37 INR 1.38 (0.87-1.13) H 12/28/20 15:37 D-Dimer 1585.97 ng/mlDDU (0-234) H 12/26/20 19:48 Abnormal lab findings: Abnormal Labs 12/16/20 12/16/20 12/16/20 00:38 00:57 00:57 WBC 18.2 H RBC 3.13 L Hgb 9.4 L Hct MCV 100 H MCHC RDW 22.7 H Plt Count Lymph % (Auto) 8.0 L [place] % (Auto) 7.8 H [place] # (Auto) 1.4 H Seg Neutrophils % 83.4 H Seg Neutrophils # 15.2 H PT 29.9 H INR 2.80 H APTT 39.9 H D-Dimer Sodium Potassium Chloride Carbon Dioxide BUN Creatinine Glucose POC Glucose 116 H Hemoglobin A1c Lactic Acid Calcium Ferritin Total Bilirubin Direct Bilirubin AST ALT Alkaline Phosphatase Lactate Dehydrogenase CK-MB (CK-2) CK-MB (CK-2) Rel Index Troponin T C-Reactive Protein Total Protein Albumin LDL Cholesterol Direct HDL Cholesterol TSH Free T4 Acetaminophen JULIA Screen Coronavirus (PCR) 12/16/20 12/16/20 12/16/20 00:57 00:57 00:57 WBC RBC Hgb Hct MCV MCHC RDW Plt Count Lymph % (Auto) [place] % (Auto) [place] # (Auto) Seg Neutrophils % Seg Neutrophils # PT INR APTT D-Dimer Sodium 136 L Potassium 5.4 H Chloride 94.2 L Carbon Dioxide 18 L D BUN 34 H Creatinine 5.6 H Glucose 108 H POC Glucose Hemoglobin A1c Lactic Acid 8.10 H* Calcium Ferritin Total Bilirubin 1.30 H Direct Bilirubin AST 2838 H ALT 1353 H Alkaline Phosphatase 186 H Lactate Dehydrogenase CK-MB (CK-2) 5.1 H CK-MB (CK-2) Rel Index 6.0 H Troponin T 0.720 H* C-Reactive Protein Total Protein Albumin 3.2 L LDL Cholesterol Direct 34 L HDL Cholesterol 64 H TSH 6.720 H Free T4 1.54 H Acetaminophen JULIA Screen Coronavirus (PCR) 12/16/20 12/16/20 12/16/20 01:45 05:48 05:48 WBC RBC Hgb Hct MCV MCHC RDW Plt Count Lymph % (Auto) [place] % (Auto) [place] # (Auto) Seg Neutrophils % Seg Neutrophils # PT INR APTT D-Dimer Sodium Potassium Chloride Carbon Dioxide BUN Creatinine Glucose POC Glucose Hemoglobin A1c Lactic Acid 6.60 H* 6.00 H* Calcium Ferritin Total Bilirubin Direct Bilirubin AST ALT Alkaline Phosphatase Lactate Dehydrogenase CK-MB (CK-2) CK-MB (CK-2) Rel Index Troponin T 0.731 H* C-Reactive Protein Total Protein Albumin LDL Cholesterol Direct HDL Cholesterol TSH Free T4 Acetaminophen JULIA Screen Coronavirus (PCR) 12/16/20 12/16/20 12/16/20 05:48 05:48 07:57 WBC RBC Hgb Hct MCV MCHC RDW Plt Count Lymph % (Auto) [place] % (Auto) [place] # (Auto) Seg Neutrophils % Seg Neutrophils # PT INR APTT D-Dimer Sodium Potassium Chloride Carbon Dioxide BUN Creatinine Glucose POC Glucose 115 H 118 H Hemoglobin A1c Lactic Acid Calcium Ferritin Total Bilirubin Direct Bilirubin AST ALT Alkaline Phosphatase Lactate Dehydrogenase CK-MB (CK-2) CK-MB (CK-2) Rel Index Troponin T C-Reactive Protein Total Protein Albumin LDL Cholesterol Direct HDL Cholesterol TSH Free T4 Acetaminophen 5.0 L JULIA Screen Coronavirus (PCR) 12/16/20 12/16/20 12/16/20 10:35 11:30 16:12 WBC RBC Hgb Hct MCV MCHC RDW Plt Count Lymph % (Auto) [place] % (Auto) [place] # (Auto) Seg Neutrophils % Seg Neutrophils # PT INR APTT D-Dimer Sodium Potassium Chloride Carbon Dioxide BUN Creatinine Glucose POC Glucose 124 H 115 H Hemoglobin A1c Lactic Acid 2.40 H* Calcium Ferritin Total Bilirubin Direct Bilirubin AST ALT Alkaline Phosphatase Lactate Dehydrogenase CK-MB (CK-2) CK-MB (CK-2) Rel Index Troponin T C-Reactive Protein Total Protein Albumin LDL Cholesterol Direct HDL Cholesterol TSH Free T4 Acetaminophen JULIA Screen Coronavirus (PCR) 12/16/20 12/17/20 12/17/20 21:00 05:42 05:42 WBC 12.0 H RBC 2.52 L Hgb 7.6 L Hct 24.6 L D MCV 98 H MCHC RDW 22.7 H Plt Count 137 L Lymph % (Auto) 9.7 L [place] % (Auto) 8.3 H [place] # (Auto) 1.0 H Seg Neutrophils % 78.2 H Seg Neutrophils # 9.4 H PT 26.3 H INR 2.36 H APTT D-Dimer Sodium Potassium Chloride Carbon Dioxide BUN Creatinine Glucose POC Glucose 149 H Hemoglobin A1c Lactic Acid Calcium Ferritin Total Bilirubin Direct Bilirubin AST ALT Alkaline Phosphatase Lactate Dehydrogenase CK-MB (CK-2) CK-MB (CK-2) Rel Index Troponin T C-Reactive Protein Total Protein Albumin LDL Cholesterol Direct HDL Cholesterol TSH Free T4 Acetaminophen JULIA Screen Coronavirus (PCR) 12/17/20 12/17/20 12/17/20 05:42 05:42 05:42 WBC RBC Hgb Hct MCV MCHC RDW Plt Count Lymph % (Auto) [place] % (Auto) [place] # (Auto) Seg Neutrophils % Seg Neutrophils # PT INR APTT D-Dimer Sodium Potassium Chloride Carbon Dioxide BUN 28 H Creatinine 4.5 H Glucose 176 H POC Glucose Hemoglobin A1c Lactic Acid Calcium Ferritin Total Bilirubin Direct Bilirubin 0.6 H AST 1744 H ALT 1938 H Alkaline Phosphatase 158 H Lactate Dehydrogenase CK-MB (CK-2) CK-MB (CK-2) Rel Index Troponin T C-Reactive Protein Total Protein 5.7 L Albumin 2.7 L LDL Cholesterol Direct HDL Cholesterol TSH Free T4 Acetaminophen JULIA Screen Positive H Coronavirus (PCR) 12/17/20 12/17/20 12/17/20 09:54 12:30 16:32 WBC RBC Hgb Hct MCV MCHC RDW Plt Count Lymph % (Auto) [place] % (Auto) [place] # (Auto) Seg Neutrophils % Seg Neutrophils # PT INR APTT D-Dimer Sodium Potassium Chloride Carbon Dioxide BUN Creatinine Glucose POC Glucose 150 H 154 H 146 H Hemoglobin A1c Lactic Acid Calcium Ferritin Total Bilirubin Direct Bilirubin AST ALT Alkaline Phosphatase Lactate Dehydrogenase CK-MB (CK-2) CK-MB (CK-2) Rel Index Troponin T C-Reactive Protein Total Protein Albumin LDL Cholesterol Direct HDL Cholesterol TSH Free T4 Acetaminophen JULIA Screen Coronavirus (PCR) 12/17/20 12/18/20 12/18/20 20:26 05:57 05:57 WBC 14.8 H RBC 2.70 L Hgb 8.2 L Hct 27.5 L MCV 102 H MCHC RDW 22.5 H Plt Count 87 L Lymph % (Auto) [place] % (Auto) [place] # (Auto) Seg Neutrophils % Seg Neutrophils # PT INR APTT D-Dimer Sodium Potassium Chloride Carbon Dioxide 18 L D BUN 36 H Creatinine 6.0 H Glucose 63 L POC Glucose 107 H Hemoglobin A1c Lactic Acid Calcium Ferritin Total Bilirubin 1.30 H Direct Bilirubin AST 1403 H ALT 1839 H Alkaline Phosphatase 149 H Lactate Dehydrogenase CK-MB (CK-2) CK-MB (CK-2) Rel Index Troponin T C-Reactive Protein Total Protein 5.6 L Albumin 2.6 L LDL Cholesterol Direct HDL Cholesterol TSH Free T4 Acetaminophen JULIA Screen Coronavirus (PCR) 12/18/20 12/18/20 12/18/20 05:57 08:03 08:14 WBC RBC Hgb Hct MCV MCHC RDW Plt Count Lymph % (Auto) [place] % (Auto) [place] # (Auto) Seg Neutrophils % Seg Neutrophils # PT INR APTT D-Dimer Sodium Potassium Chloride Carbon Dioxide BUN Creatinine Glucose POC Glucose 45 L 163 H Hemoglobin A1c 7.1 H Lactic Acid Calcium Ferritin Total Bilirubin Direct Bilirubin AST ALT Alkaline Phosphatase Lactate Dehydrogenase CK-MB (CK-2) CK-MB (CK-2) Rel Index Troponin T C-Reactive Protein Total Protein Albumin LDL Cholesterol Direct HDL Cholesterol TSH Free T4 Acetaminophen JULIA Screen Coronavirus (PCR) 12/18/20 12/18/20 12/18/20 10:04 11:40 18:00 WBC RBC Hgb Hct MCV MCHC RDW Plt Count Lymph % (Auto) [place] % (Auto) [place] # (Auto) Seg Neutrophils % Seg Neutrophils # PT INR APTT D-Dimer Sodium Potassium Chloride Carbon Dioxide BUN Creatinine Glucose POC Glucose 129 H 128 H 161 H Hemoglobin A1c Lactic Acid Calcium Ferritin Total Bilirubin Direct Bilirubin AST ALT Alkaline Phosphatase Lactate Dehydrogenase CK-MB (CK-2) CK-MB (CK-2) Rel Index Troponin T C-Reactive Protein Total Protein Albumin LDL Cholesterol Direct HDL Cholesterol TSH Free T4 Acetaminophen JULIA Screen Coronavirus (PCR) 12/18/20 12/19/2012/19/21 21:40 01:26 05:49 WBC RBC Hgb Hct MCV MCHC RDW Plt Count Lymph % (Auto) [place] % (Auto) [place] # (Auto) Seg Neutrophils % Seg Neutrophils # PT INR APTT D-Dimer Sodium Potassium Chloride Carbon Dioxide BUN Creatinine Glucose POC Glucose 138 H 148 H 136 H Hemoglobin A1c Lactic Acid Calcium Ferritin Total Bilirubin Direct Bilirubin AST ALT Alkaline Phosphatase Lactate Dehydrogenase CK-MB (CK-2) CK-MB (CK-2) Rel Index Troponin T C-Reactive Protein Total Protein Albumin LDL Cholesterol Direct HDL Cholesterol TSH Free T4 Acetaminophen JULIA Screen Coronavirus (PCR) 12/19/20 12/19/20 12/19/20 06:59 06:59 08:38 WBC 12.1 H RBC 2.76 L Hgb 8.5 L Hct 27.8 L MCV 101 H MCHC RDW 22.3 H Plt Count 82 L Lymph % (Auto) [place] % (Auto) [place] # (Auto) Seg Neutrophils % Seg Neutrophils # PT INR APTT D-Dimer Sodium 147 H Potassium Chloride Carbon Dioxide BUN 21 H Creatinine 3.9 H Glucose 144 H POC Glucose 139 H Hemoglobin A1c Lactic Acid Calcium Ferritin Total Bilirubin 1.70 H Direct Bilirubin 1.2 H AST 871 H ALT 1552 H Alkaline Phosphatase 146 H Lactate Dehydrogenase CK-MB (CK-2) CK-MB (CK-2) Rel Index Troponin T C-Reactive Protein Total Protein 5.6 L Albumin 2.7 L LDL Cholesterol Direct HDL Cholesterol TSH Free T4 Acetaminophen JULIA Screen Coronavirus (PCR) 12/19/20 12/19/20 12/19/20 11:45 16:01 22:03 WBC RBC Hgb Hct MCV MCHC RDW Plt Count Lymph % (Auto) [place] % (Auto) [place] # (Auto) Seg Neutrophils % Seg Neutrophils # PT INR APTT D-Dimer Sodium Potassium Chloride Carbon Dioxide BUN Creatinine Glucose POC Glucose 138 H 141 H 121 H Hemoglobin A1c Lactic Acid Calcium Ferritin Total Bilirubin Direct Bilirubin AST ALT Alkaline Phosphatase Lactate Dehydrogenase CK-MB (CK-2) CK-MB (CK-2) Rel Index Troponin T C-Reactive Protein Total Protein Albumin LDL Cholesterol Direct HDL Cholesterol TSH Free T4 Acetaminophen JULIA Screen Coronavirus (PCR) 12/20/20 12/20/20 12/20/20 03:18 05:46 05:48 WBC RBC Hgb Hct MCV MCHC RDW Plt Count Lymph % (Auto) [place] % (Auto) [place] # (Auto) Seg Neutrophils % Seg Neutrophils # PT INR APTT D-Dimer Sodium 146 H Potassium Chloride 109.6 H Carbon Dioxide 21 L BUN 32 H Creatinine 5.5 H Glucose 124 H POC Glucose 142 H 125 H Hemoglobin A1c Lactic Acid Calcium Ferritin Total Bilirubin Direct Bilirubin AST ALT Alkaline Phosphatase Lactate Dehydrogenase CK-MB (CK-2) CK-MB (CK-2) Rel Index Troponin T C-Reactive Protein Total Protein Albumin LDL Cholesterol Direct HDL Cholesterol TSH Free T4 Acetaminophen JULIA Screen Coronavirus (PCR) 12/20/20 12/20/20 12/20/20 10:26 12:32 12:38 WBC RBC 2.64 L Hgb 8.1 L Hct 26.2 L MCV 99 H MCHC RDW 22.8 H Plt Count 82 L Lymph % (Auto) [place] % (Auto) [place] # (Auto) Seg Neutrophils % Seg Neutrophils # PT INR APTT D-Dimer Sodium Potassium Chloride Carbon Dioxide BUN Creatinine Glucose POC Glucose 139 H 136 H Hemoglobin A1c Lactic Acid Calcium Ferritin Total Bilirubin Direct Bilirubin AST ALT Alkaline Phosphatase Lactate Dehydrogenase CK-MB (CK-2) CK-MB (CK-2) Rel Index Troponin T C-Reactive Protein Total Protein Albumin LDL Cholesterol Direct HDL Cholesterol TSH Free T4 Acetaminophen JULIA Screen Coronavirus (PCR) 12/20/20 12/20/20 12/20/20 16:05 20:00 23:23 WBC RBC Hgb Hct MCV MCHC RDW Plt Count Lymph % (Auto) [place] % (Auto) [place] # (Auto) Seg Neutrophils % Seg Neutrophils # PT INR APTT D-Dimer Sodium Potassium Chloride Carbon Dioxide BUN Creatinine Glucose POC Glucose 123 H 116 H 112 H Hemoglobin A1c Lactic Acid Calcium Ferritin Total Bilirubin Direct Bilirubin AST ALT Alkaline Phosphatase Lactate Dehydrogenase CK-MB (CK-2) CK-MB (CK-2) Rel Index Troponin T C-Reactive Protein Total Protein Albumin LDL Cholesterol Direct HDL Cholesterol TSH Free T4 Acetaminophen JULIA Screen Coronavirus (PCR) 12/21/20 12/21/20 12/22/20 08:38 11:21 03:28 WBC RBC Hgb Hct MCV MCHC RDW Plt Count Lymph % (Auto) [place] % (Auto) [place] # (Auto) Seg Neutrophils % Seg Neutrophils # PT INR APTT D-Dimer Sodium Potassium Chloride Carbon Dioxide BUN Creatinine Glucose POC Glucose 127 H 117 H 125 H Hemoglobin A1c Lactic Acid Calcium Ferritin Total Bilirubin Direct Bilirubin AST ALT Alkaline Phosphatase Lactate Dehydrogenase CK-MB (CK-2) CK-MB (CK-2) Rel Index Troponin T C-Reactive Protein Total Protein Albumin LDL Cholesterol Direct HDL Cholesterol TSH Free T4 Acetaminophen JULIA Screen Coronavirus (PCR) 12/22/20 12/22/20 12/22/20 05:06 05:06 07:42 WBC RBC 2.82 L Hgb 8.8 L Hct 28.6 L MCV 101 H MCHC RDW 23.8 H Plt Count 67 L Lymph % (Auto) [place] % (Auto) [place] # (Auto) Seg Neutrophils % Seg Neutrophils # PT INR APTT D-Dimer Sodium Potassium Chloride Carbon Dioxide BUN 30 H Creatinine 5.1 H Glucose 123 H POC Glucose 117 H Hemoglobin A1c Lactic Acid Calcium 8.3 L Ferritin Total Bilirubin 2.70 H Direct Bilirubin AST 150 H ALT 644 H Alkaline Phosphatase 148 H Lactate Dehydrogenase CK-MB (CK-2) CK-MB (CK-2) Rel Index Troponin T C-Reactive Protein Total Protein 5.6 L Albumin 2.3 L LDL Cholesterol Direct HDL Cholesterol TSH Free T4 Acetaminophen JULIA Screen Coronavirus (PCR) 12/22/20 12/22/20 12/22/20 11:45 16:22 16:37 WBC RBC Hgb 9.4 L Hct MCV MCHC RDW Plt Count Lymph % (Auto) [place] % (Auto) [place] # (Auto) Seg Neutrophils % Seg Neutrophils # PT INR APTT D-Dimer Sodium Potassium Chloride Carbon Dioxide BUN Creatinine Glucose POC Glucose 113 H 115 H Hemoglobin A1c Lactic Acid Calcium Ferritin Total Bilirubin Direct Bilirubin AST ALT Alkaline Phosphatase Lactate Dehydrogenase CK-MB (CK-2) CK-MB (CK-2) Rel Index Troponin T C-Reactive Protein Total Protein Albumin LDL Cholesterol Direct HDL Cholesterol TSH Free T4 Acetaminophen JULIA Screen Coronavirus (PCR) 12/22/20 12/22/20 12/23/20 19:52 23:35 04:17 WBC RBC Hgb Hct MCV MCHC RDW Plt Count Lymph % (Auto) [place] % (Auto) [place] # (Auto) Seg Neutrophils % Seg Neutrophils # PT INR APTT D-Dimer Sodium Potassium Chloride Carbon Dioxide BUN Creatinine Glucose POC Glucose 119 H 143 H 170 H Hemoglobin A1c Lactic Acid Calcium Ferritin Total Bilirubin Direct Bilirubin AST ALT Alkaline Phosphatase Lactate Dehydrogenase CK-MB (CK-2) CK-MB (CK-2) Rel Index Troponin T C-Reactive Protein Total Protein Albumin LDL Cholesterol Direct HDL Cholesterol TSH Free T4 Acetaminophen JULIA Screen Coronavirus (PCR) 12/23/20 12/23/20 12/23/20 06:06 07:31 08:14 WBC RBC 3.03 L Hgb 8.8 L 9.6 L Hct 28.1 L MCV 100 H MCHC RDW 25.2 H Plt Count 54 L Lymph % (Auto) [place] % (Auto) [place] # (Auto) Seg Neutrophils % Seg Neutrophils # PT INR APTT D-Dimer Sodium Potassium Chloride Carbon Dioxide BUN Creatinine Glucose POC Glucose 174 H Hemoglobin A1c Lactic Acid Calcium Ferritin Total Bilirubin Direct Bilirubin AST ALT Alkaline Phosphatase Lactate Dehydrogenase CK-MB (CK-2) CK-MB (CK-2) Rel Index Troponin T C-Reactive Protein Total Protein Albumin LDL Cholesterol Direct HDL Cholesterol TSH Free T4 Acetaminophen JULIA Screen Coronavirus (PCR) 12/23/20 12/23/20 12/23/20 14:56 16:49 23:44 WBC RBC Hgb 9.1 L Hct 29.6 L MCV MCHC RDW Plt Count Lymph % (Auto) [place] % (Auto) [place] # (Auto) Seg Neutrophils % Seg Neutrophils # PT INR APTT D-Dimer Sodium Potassium Chloride Carbon Dioxide BUN Creatinine Glucose POC Glucose 212 H 223 H Hemoglobin A1c Lactic Acid Calcium Ferritin Total Bilirubin Direct Bilirubin AST ALT Alkaline Phosphatase Lactate Dehydrogenase CK-MB (CK-2) CK-MB (CK-2) Rel Index Troponin T C-Reactive Protein Total Protein Albumin LDL Cholesterol Direct HDL Cholesterol TSH Free T4 Acetaminophen JULIA Screen Coronavirus (PCR) 12/24/20 12/24/20 12/24/20 12:30 18:32 Unknown WBC RBC Hgb Hct MCV MCHC RDW Plt Count Lymph % (Auto) [place] % (Auto) [place] # (Auto) Seg Neutrophils % Seg Neutrophils # PT INR APTT D-Dimer Sodium Potassium Chloride Carbon Dioxide BUN Creatinine Glucose POC Glucose 297 H 309 H Hemoglobin A1c Lactic Acid Calcium Ferritin Total Bilirubin Direct Bilirubin AST ALT Alkaline Phosphatase Lactate Dehydrogenase CK-MB (CK-2) CK-MB (CK-2) Rel Index Troponin T C-Reactive Protein Total Protein Albumin LDL Cholesterol Direct HDL Cholesterol TSH Free T4 Acetaminophen JULIA Screen Coronavirus (PCR) Positive A 12/25/20 12/25/20 12/25/20 00:07 07:02 15:30 WBC RBC Hgb Hct MCV MCHC RDW Plt Count Lymph % (Auto) [place] % (Auto) [place] # (Auto) Seg Neutrophils % Seg Neutrophils # PT INR APTT D-Dimer Sodium Potassium Chloride Carbon Dioxide BUN 24 H Creatinine 3.2 H Glucose 227 H POC Glucose 190 H 188 H Hemoglobin A1c Lactic Acid Calcium Ferritin Total Bilirubin Direct Bilirubin AST ALT Alkaline Phosphatase Lactate Dehydrogenase CK-MB (CK-2) CK-MB (CK-2) Rel Index Troponin T C-Reactive Protein Total Protein Albumin LDL Cholesterol Direct HDL Cholesterol TSH Free T4 Acetaminophen JULIA Screen Coronavirus (PCR) 12/25/20 12/25/20 12/26/20 16:20 22:19 06:24 WBC RBC Hgb Hct MCV MCHC RDW Plt Count Lymph % (Auto) [place] % (Auto) [place] # (Auto) Seg Neutrophils % Seg Neutrophils # PT INR APTT D-Dimer Sodium Potassium Chloride Carbon Dioxide BUN Creatinine Glucose POC Glucose 227 H 266 H 224 H Hemoglobin A1c Lactic Acid Calcium Ferritin Total Bilirubin Direct Bilirubin AST ALT Alkaline Phosphatase Lactate Dehydrogenase CK-MB (CK-2) CK-MB (CK-2) Rel Index Troponin T C-Reactive Protein Total Protein Albumin LDL Cholesterol Direct HDL Cholesterol TSH Free T4 Acetaminophen JULIA Screen Coronavirus (PCR) 12/26/20 12/26/20 12/26/20 07:51 12:40 17:34 WBC RBC 2.92 L Hgb 9.4 L Hct 29.6 L MCV 102 H MCHC RDW 25.1 H Plt Count 58 L Lymph % (Auto) [place] % (Auto) [place] # (Auto) Seg Neutrophils % Seg Neutrophils # PT INR APTT D-Dimer Sodium Potassium Chloride Carbon Dioxide BUN Creatinine Glucose POC Glucose 155 H 208 H Hemoglobin A1c Lactic Acid Calcium Ferritin Total Bilirubin Direct Bilirubin AST ALT Alkaline Phosphatase Lactate Dehydrogenase CK-MB (CK-2) CK-MB (CK-2) Rel Index Troponin T C-Reactive Protein Total Protein Albumin LDL Cholesterol Direct HDL Cholesterol TSH Free T4 Acetaminophen JULIA Screen Coronavirus (PCR) 12/26/20 12/26/20 12/26/20 19:48 19:48 19:48 WBC RBC Hgb Hct MCV MCHC RDW Plt Count Lymph % (Auto) [place] % (Auto) [place] # (Auto) Seg Neutrophils % Seg Neutrophils # PT INR APTT D-Dimer 1585.97 H Sodium Potassium Chloride Carbon Dioxide BUN Creatinine Glucose POC Glucose Hemoglobin A1c Lactic Acid Calcium Ferritin 3421.0 H Total Bilirubin Direct Bilirubin AST ALT Alkaline Phosphatase Lactate Dehydrogenase 581 H CK-MB (CK-2) CK-MB (CK-2) Rel Index Troponin T C-Reactive Protein 9.30 H Total Protein Albumin LDL Cholesterol Direct HDL Cholesterol TSH Free T4 Acetaminophen JULIA Screen Coronavirus (PCR) 12/26/20 12/26/20 12/27/20 19:48 23:31 05:55 WBC RBC Hgb Hct MCV MCHC RDW Plt Count Lymph % (Auto) [place] % (Auto) [place] # (Auto) Seg Neutrophils % Seg Neutrophils # PT INR APTT D-Dimer Sodium Potassium 5.3 H D Chloride Carbon Dioxide BUN Creatinine Glucose POC Glucose 253 H 248 H Hemoglobin A1c Lactic Acid Calcium Ferritin Total Bilirubin Direct Bilirubin AST ALT Alkaline Phosphatase Lactate Dehydrogenase CK-MB (CK-2) CK-MB (CK-2) Rel Index Troponin T 0.735 H* C-Reactive Protein Total Protein Albumin LDL Cholesterol Direct HDL Cholesterol TSH Free T4 Acetaminophen JULIA Screen Coronavirus (PCR) 12/27/20 12/27/20 12/27/20 11:54 17:08 21:39 WBC RBC Hgb Hct MCV MCHC RDW Plt Count Lymph % (Auto) [place] % (Auto) [place] # (Auto) Seg Neutrophils % Seg Neutrophils # PT INR APTT D-Dimer Sodium Potassium Chloride Carbon Dioxide BUN Creatinine Glucose POC Glucose 254 H 269 H 249 H Hemoglobin A1c Lactic Acid Calcium Ferritin Total Bilirubin Direct Bilirubin AST ALT Alkaline Phosphatase Lactate Dehydrogenase CK-MB (CK-2) CK-MB (CK-2) Rel Index Troponin T C-Reactive Protein Total Protein Albumin LDL Cholesterol Direct HDL Cholesterol TSH Free T4 Acetaminophen JULIA Screen Coronavirus (PCR) 12/28/20 12/28/20 12/28/20 05:48 05:48 05:48 WBC RBC 2.89 L Hgb 9.3 L Hct 29.6 L MCV 102 H MCHC RDW 24.5 H Plt Count 78 L Lymph % (Auto) [place] % (Auto) 12.1 H [place] # (Auto) 1.0 H Seg Neutrophils % 73.6 H Seg Neutrophils # PT 17.1 H INR 1.34 H APTT D-Dimer Sodium Potassium Chloride 97.9 L Carbon Dioxide BUN 39 H Creatinine 3.5 H Glucose 186 H POC Glucose Hemoglobin A1c Lactic Acid Calcium Ferritin Total Bilirubin Direct Bilirubin AST ALT Alkaline Phosphatase Lactate Dehydrogenase CK-MB (CK-2) CK-MB (CK-2) Rel Index Troponin T C-Reactive Protein Total Protein Albumin LDL Cholesterol Direct HDL Cholesterol TSH Free T4 Acetaminophen JULIA Screen Coronavirus (PCR) 12/28/20 12/28/20 12/28/20 05:51 12:05 15:37 WBC RBC 2.98 L Hgb 9.4 L Hct MCV 107 H MCHC 29 L RDW 25.0 H Plt Count 90 L Lymph % (Auto) [place] % (Auto) [place] # (Auto) Seg Neutrophils % Seg Neutrophils # PT INR APTT D-Dimer Sodium Potassium Chloride Carbon Dioxide BUN Creatinine Glucose POC Glucose 169 H 208 H Hemoglobin A1c Lactic Acid Calcium Ferritin Total Bilirubin Direct Bilirubin AST ALT Alkaline Phosphatase Lactate Dehydrogenase CK-MB (CK-2) CK-MB (CK-2) Rel Index Troponin T C-Reactive Protein Total Protein Albumin LDL Cholesterol Direct HDL Cholesterol TSH Free T4 Acetaminophen JULIA Screen Coronavirus (PCR) 12/28/20 12/28/20 12/28/20 15:37 15:37 16:09 WBC RBC Hgb Hct MCV MCHC RDW Plt Count Lymph % (Auto) [place] % (Auto) [place] # (Auto) Seg Neutrophils % Seg Neutrophils # PT 17.5 H INR 1.38 H APTT D-Dimer Sodium Potassium Chloride Carbon Dioxide BUN Creatinine 3.9 H Glucose POC Glucose 215 H Hemoglobin A1c Lactic Acid Calcium Ferritin Total Bilirubin Direct Bilirubin AST ALT Alkaline Phosphatase Lactate Dehydrogenase CK-MB (CK-2) CK-MB (CK-2) Rel Index Troponin T C-Reactive Protein Total Protein Albumin LDL Cholesterol Direct HDL Cholesterol TSH Free T4 Acetaminophen JULIA Screen Coronavirus (PCR) 12/28/20 12/29/20 12/29/20 21:29 06:36 12:11 WBC RBC Hgb Hct MCV MCHC RDW Plt Count Lymph % (Auto) [place] % (Auto) [place] # (Auto) Seg Neutrophils % Seg Neutrophils # PT INR APTT D-Dimer Sodium Potassium Chloride Carbon Dioxide BUN Creatinine Glucose POC Glucose 251 H 325 H 352 H Hemoglobin A1c Lactic Acid Calcium Ferritin Total Bilirubin Direct Bilirubin AST ALT Alkaline Phosphatase Lactate Dehydrogenase CK-MB (CK-2) CK-MB (CK-2) Rel Index Troponin T C-Reactive Protein Total Protein Albumin LDL Cholesterol Direct HDL Cholesterol TSH Free T4 Acetaminophen JULIA Screen Coronavirus (PCR) 12/29/20 12/29/20 12/30/20 18:32 20:50 01:19 WBC RBC Hgb Hct MCV MCHC RDW Plt Count Lymph % (Auto) [place] % (Auto) [place] # (Auto) Seg Neutrophils % Seg Neutrophils # PT INR APTT D-Dimer Sodium Potassium Chloride Carbon Dioxide BUN Creatinine Glucose POC Glucose 321 H 289 H 258 H Hemoglobin A1c Lactic Acid Calcium Ferritin Total Bilirubin Direct Bilirubin AST ALT Alkaline Phosphatase Lactate Dehydrogenase CK-MB (CK-2) CK-MB (CK-2) Rel Index Troponin T C-Reactive Protein Total Protein Albumin LDL Cholesterol Direct HDL Cholesterol TSH Free T4 Acetaminophen JULIA Screen Coronavirus (PCR) 12/30/20 12/30/20 12/30/20 05:52 12:10 15:01 WBC 15.2 H RBC 2.94 L Hgb 9.2 L Hct 29.3 L MCV 100 H MCHC RDW 24.2 H Plt Count Lymph % (Auto) [place] % (Auto) [place] # (Auto) Seg Neutrophils % Seg Neutrophils # PT INR APTT D-Dimer Sodium Potassium Chloride Carbon Dioxide BUN Creatinine Glucose POC Glucose 228 H 228 H Hemoglobin A1c Lactic Acid Calcium Ferritin Total Bilirubin Direct Bilirubin AST ALT Alkaline Phosphatase Lactate Dehydrogenase CK-MB (CK-2) CK-MB (CK-2) Rel Index Troponin T C-Reactive Protein Total Protein Albumin LDL Cholesterol Direct HDL Cholesterol TSH Free T4 Acetaminophen JULIA Screen Coronavirus (PCR) 12/30/20 12/30/20 12/31/20 15:01 17:47 00:18 WBC RBC Hgb Hct MCV MCHC RDW Plt Count Lymph % (Auto) [place] % (Auto) [place] # (Auto) Seg Neutrophils % Seg Neutrophils # PT INR APTT D-Dimer Sodium 135 L Potassium Chloride 93.3 L Carbon Dioxide BUN 80 H Creatinine 5.5 H Glucose 193 H POC Glucose 198 H 214 H Hemoglobin A1c Lactic Acid Calcium Ferritin Total Bilirubin 1.50 H Direct Bilirubin AST 65 H ALT 133 H Alkaline Phosphatase 268 H Lactate Dehydrogenase CK-MB (CK-2) CK-MB (CK-2) Rel Index Troponin T C-Reactive Protein Total Protein 5.8 L Albumin 2.9 L LDL Cholesterol Direct HDL Cholesterol TSH Free T4 Acetaminophen JULIA Screen Coronavirus (PCR) 12/31/20 12/31/20 12/31/20 06:15 12:20 17:48 WBC RBC Hgb Hct MCV MCHC RDW Plt Count Lymph % (Auto) [place] % (Auto) [place] # (Auto) Seg Neutrophils % Seg Neutrophils # PT INR APTT D-Dimer Sodium Potassium Chloride Carbon Dioxide BUN Creatinine 3.8 H Glucose POC Glucose 197 H 293 H Hemoglobin A1c Lactic Acid Calcium Ferritin Total Bilirubin Direct Bilirubin AST ALT Alkaline Phosphatase Lactate Dehydrogenase CK-MB (CK-2) CK-MB (CK-2) Rel Index Troponin T C-Reactive Protein Total Protein Albumin LDL Cholesterol Direct HDL Cholesterol TSH Free T4 Acetaminophen JULIA Screen Coronavirus (PCR) 01/01/21 01/01/21 01/01/21 00:14 05:18 06:26 WBC 18.6 H RBC 3.09 L Hgb 10.0 L Hct MCV 106 H MCHC RDW 24.7 H Plt Count Lymph % (Auto) [place] % (Auto) [place] # (Auto) Seg Neutrophils % Seg Neutrophils # PT INR APTT D-Dimer Sodium Potassium Chloride Carbon Dioxide BUN Creatinine Glucose POC Glucose 335 H 328 H Hemoglobin A1c Lactic Acid Calcium Ferritin Total Bilirubin Direct Bilirubin AST ALT Alkaline Phosphatase Lactate Dehydrogenase CK-MB (CK-2) CK-MB (CK-2) Rel Index Troponin T C-Reactive Protein Total Protein Albumin LDL Cholesterol Direct HDL Cholesterol TSH Free T4 Acetaminophen JULIA Screen Coronavirus (PCR) 01/01/21 01/01/21 01/01/21 13:26 16:37 23:24 WBC RBC Hgb Hct MCV MCHC RDW Plt Count Lymph % (Auto) [place] % (Auto) [place] # (Auto) Seg Neutrophils % Seg Neutrophils # PT INR APTT D-Dimer Sodium Potassium Chloride Carbon Dioxide BUN Creatinine Glucose POC Glucose 287 H 219 H 292 H Hemoglobin A1c Lactic Acid Calcium Ferritin Total Bilirubin Direct Bilirubin AST ALT Alkaline Phosphatase Lactate Dehydrogenase CK-MB (CK-2) CK-MB (CK-2) Rel Index Troponin T C-Reactive Protein Total Protein Albumin LDL Cholesterol Direct HDL Cholesterol TSH Free T4 Acetaminophen JULIA Screen Coronavirus (PCR) 01/02/21 06:29 WBC RBC Hgb Hct MCV MCHC RDW Plt Count Lymph % (Auto) [place] % (Auto) [place] # (Auto) Seg Neutrophils % Seg Neutrophils # PT INR APTT D-Dimer Sodium Potassium Chloride Carbon Dioxide BUN Creatinine Glucose POC Glucose 240 H Hemoglobin A1c Lactic Acid Calcium Ferritin Total Bilirubin Direct Bilirubin AST ALT Alkaline Phosphatase Lactate Dehydrogenase CK-MB (CK-2) CK-MB (CK-2) Rel Index Troponin T C-Reactive Protein Total Protein Albumin LDL Cholesterol Direct HDL Cholesterol TSH Free T4 Acetaminophen JULIA Screen Coronavirus (PCR) Chest x-ray: image reviewed (persistent mild bilateral infiltrates; [facility] Vascath in place) Allied health notes reviewed: nursing
--- NOTE | 2021-01-02 14:23 | Progress Note ---
Assessment and Plan Cultures: 12/16/2020 blood culture: No growth A/P: 70-year-old female with diabetes, hypertension, ESRD admitted to the hospital on 12/16/2020 due to altered mental status: #COVID: No acute change, respiratory status has improved since admission. ?False positive. #Bilateral lower extremity wounds, ?some wounds may be calciphylaxis: Wound care, dialysis compliance. b/l arterial dopplers of LE with diffuse disease, no focal stenosis. #ESRD on HD: Renally dose antibiotics. #Acute encephalopathy: CT head with atrophy, severe generalized atherosclerosis, no acute intracranial abnormality #Elevated LFTs: Downtrending. Abdominal ultrasound showed contracted gallbladder, no other acute abnormality. Hepatitis panel negative. #Thrombocytopenia Recs: -On dexamethasone for COVD, complete 10 days. -White count continues to worsen, started ceftriaxone/azithromycin. Complete 5 days. -Not a remdesivir candidate due to renal failure. -Wound care, offloading as possible -Family refusing amputation. Sohail Jay MD [facility] ([facility]) O: [phone] F: [phone] Subjective Date of service: 01/02/21 Principal diagnosis: Ac Hypoxemic Resp Failure; COVID-19 infxn; PNA; CMOP; HTN; DM II; ESRD Interval history: Afebrile, now on 10 L nasal cannula. Imaging personally viewed: Chest x-ray: Mild increase in bilateral lung opacities Objective - Exam Narrative Exam: Physical exam deferred to reduce risk of transmission of COVID-19. Please refer to primary team's note. - Constitutional Vitals: Vital Signs Temp Pulse Resp BP Pulse Ox 98.3 F 98 H 24 116/24 89 01/01/21 22:58 01/02/21 09:52 01/01/21 22:58 01/02/21 09:52 01/02/21 08:00 Temperature -Last 24 Hours Temperature 98.3 F - Labs CBC & Chem 7: 01/01/21 05:18 12/31/20 17:48 Labs: Abnormal lab results 01/01/21 01/01/21 01/02/21 Range/Units 16:37 23:24 06:29 POC Glucose 219 H 292 H 240 H (70-105) mg/dL
[2021-01-02] MEDS ORDERED: AZITHROMYCIN/NS 500 MG/250 ML 500 MG/250 ML BAG IV SCH (15:00)
[2021-01-02] MEDS ORDERED: cefTRIAXone/NS 2 GM/100 ML 2 GM/100 ML BAG IV SCH (15:00)
--- NOTE | 2021-01-02 18:01 | XRay Report ---
XR abdomen 1V ap INDICATION / CLINICAL INFORMATION: ng tube placement COMPARISON: 12/20/2020 FINDINGS/IMPRESSION: Nasogastric tube tip and side-port project within the stomach. Signer Name: Armond Amaya MD Signed: 01/02/2021 5:57 PM Workstation Name: [id number]
[2021-01-02] MEDS: HEPARIN 5,000 UNIT/1 ML VIAL SUB-Q SCH (22:10)
[2021-01-03] MEDS: INSULIN REGULAR, HUMAN 100 UNITS/1 ML SUB-Q SCH ×3 (01:35→12:52)
[2021-01-03 06:44] LABS: Mean Corpuscular HGB Conc 31 % (30-34); Mean Corpuscular Volume 103 fl (79-97); Platelet Count 158 K/mm3 (140-440); Red Blood Count 3.49 M/mm3 (3.65-5.03)
[2021-01-03 06:45] LABS: Red Cell Distribution Width 26.1 % (13.2-15.2)
[2021-01-03 07:07] VITALS: BP 141/53
[2021-01-03 07:07] LABS: Albumin 2.7 g/dL (3.9-5); Calcium 9.4 mg/dL (8.4-10.2)
[2021-01-03] MEDS: MIDODRINE 5 MG TAB PO SCH ×2 (07:42→12:56)
--- NOTE | 2021-01-03 09:34 | Progress Note ---
Assessment and Plan 1. ESRD: Patient is on maintenance hemodialysis three times a week, MWF schedule. Meds dosage based on GFR. Hemodialysis: 12/16, 12/18, 12/20, 12/23, 12/25, 12/27, 12/30, 01/01. HD today. 2. FEN: Hyperkalemia, on HD. Anion-gap metabolic acidosis, improved. Monitor lytes and volume status. 3. Anemia, POA: 2/2 ESRD. Epogen with HD. 4. Acute Hypoxemic Respiratory Failure: 2/2 COVID-19 infection. On HFNC O2. Followed by Pulmonary. 5. Acute metabolic encephalopathy, POA: CT head negative. Seen by Neuro. Monitor. 6. Sepsis: Covid infection. Bl culture negative. 7. Elevated Troponin // Dilated cardiomyopathy: 2D echo showed EF 30 to 35%. Cardiology following and recommended medical management. 8. Diabetes mellitus type 2: Accu-Cheks and SSI. 9. Bilateral lower extremity pressure sore ulcer, unstageable: S/p debridement on 12/27. Also followed by Vascular. 10. Hypotension: Midodrine. Monitor BP. 11. Elevated ALT / AST: Improving. 12. Thrombocytopenia: Improved. Prognosis is slim. Subjective: Patient was seen and examined at the bedside. General Appearance: General appearance: well-developed, appears stated age, not in distress, HFNC O2, NG tube HEENT: ATNC, pupils equal Neck: trachea midline Respiratory: decreased breath sounds Heart: regular, S1S2, no murmur Abdomen: soft, bowel sounds heard, not tender Integumentary: b/l leg dressing noted Neurologic: lethargic, not following any command, not conversing Ext: no edema Hemodialysis access: L IJ tunnel catheter Subjective Date of service: 01/03/21 Principal diagnosis: change in mentation,ESRD Objective - Vital Signs Vital signs: Vital Signs - 12hr 01/02/21 01/02/21 01/03/21 22:00 22:10 00:11 Temperature Pulse Rate 78 78 Blood Pressure 142/45 O2 Sat by Pulse 90 92 Oximetry 01/03/21 01/03/21 01/03/21 05:00 05:30 05:49 Temperature 98.3 F Pulse Rate Blood Pressure 141/53 O2 Sat by Pulse 93 Oximetry 01/03/21 01/03/21 06:30 08:17 Temperature Pulse Rate Blood Pressure O2 Sat by Pulse 96 89 Oximetry - Lab 01/03/21 04:57 01/03/21 04:57 Most recent lab results Calcium 9.4 mg/dL (8.4-10.2) 01/03/21 04:57 Magnesium 2.00 mg/dL (1.7-2.3) 12/26/20 19:48 Magnesium 2.00 mg/dL (1.7-2.3) 12/26/20 19:48 Medications & Allergies - Medications Allergies/Adverse Reactions: Allergies No Known Allergies Allergy (Verified 12/11/20 17:11) Home Medications: Home Medications Medication Instructions Recorded Confirmed Last Taken Type Apixaban [Eliquis] 5 mg PO BID 12/16/20 12/16/20 Unknown History Aspirin [Adult Aspirin] 81 mg PO QDAY 12/16/20 12/16/20 Unknown History Escitalopram [Lexapro] 10 mg PO DAILY 12/16/20 12/16/20 Unknown History Gabapentin 300 mg PO QDAY 12/16/20 12/16/20 Unknown History Levemir Flextouch 6 units SUB-Q HS 12/16/20 12/22/20 Unknown History Midodrine [Proamatine] 15 mg PO TID 12/16/20 12/16/20 Unknown History NovoLOG Flexpen 6 units SUB-Q BID 12/16/20 12/22/20 Unknown History Pantoprazole [Protonix] 40 mg PO QDAY 12/16/20 12/16/20 Unknown History Vit B Comp No.3/Folic/C/Biotin 1 each PO DAILY 12/16/20 12/16/20 Unknown History [Nephro-Nola Rx Tablet] sevelamer HCL [Sevelamer HCl] 800 mg PO TID 12/16/20 12/16/20 Unknown History Active Medications: Generic Name Dose Route Start Last Admin Trade Name Freq PRN Reason Stop Dose Admin Lipase/Protease/Amylase 1 each 12/22/20 10:34 Lipase 10,500/Protease 25,000/Amylase 43,750 (Units) Dr Lazar FEEDTUBE PRN PRN For Clogged Feeding Tube Ascorbic Acid 1,000 mg 12/26/20 22:00 01/02/21 22:10 Ascorbic Acid 500 Mg Tab PO 1,000 mg BID JEET Administration Cholecalciferol 5,000 unit 12/26/20 15:00 01/02/21 09:52 Cholecalciferol (Vit D3) 5,000 Unit Tab PO 5,000 unit DAILY JEET Administration Dexamethasone 6 mg 12/26/20 15:00 01/02/21 09:52 Dexamethasone 4 Mg Tab PO 01/04/21 10:01 6 mg Q24HR JEET Administration Dextrose 0 ml 12/16/20 03:40 12/18/20 08:23 Dextrose 50% In Water (25gm) 50 Ml Syringe IV 50 ml Q30MIN PRN Administration Hypoglycemia Protocol Heparin Sodium (Porcine) 5,000 unit 01/02/21 22:00 01/02/21 22:10 Heparin 5,000 Unit/1 Ml Vial SUB-Q 5,000 unit Q12HR JEET Administration Sodium Chloride 100 mls @ 999 mls/hr 12/20/20 09:20 Nacl 0.9% IV ROSA M PRN Hypotension Ceftriaxone Sodium 2 gm in 100 mls @ 200 mls/hr 01/02/21 15:00 01/02/21 16:28 Rocephin/Ns 2 Gm/100 Ml IV 200 mls/hr Q24H JEET Administration Protocol Azithromycin 500 mg in 250 mls @ 250 mls/hr 01/02/21 15:00 01/02/21 16:29 Zithromax/Ns IV 250 mls/hr Q24H JEET Administration Insulin Human Regular 0 units 12/24/20 18:00 01/03/21 06:41 Insulin Regular, Human 100 Units/1 Ml SUB-Q 3 units Q6HR JEET Administration Protocol Lansoprazole 30 mg 12/25/20 10:00 01/02/21 09:52 Lansoprazole 30 Mg Solutab FEEDTUBE 30 mg QDAY JEET Administration Magnesium Hydroxide 30 ml 12/16/20 03:40 Magnesium Hydroxide (Mom) Oral Liqd Udc PO Q4H PRN Constipation Metoprolol Tartrate 50 mg 12/26/20 22:00 01/02/21 22:10 Metoprolol Tartrate 50 Mg Tab PO 50 mg BID JEET Administration Midodrine 15 mg 12/31/20 18:00 01/03/21 07:42 Midodrine 5 Mg Tab PO Not Given 0600,1200,1800 [facility] Morphine Sulfate 0.5 mg 12/18/20 13:00 12/31/20 23:04 Morphine 2 Mg/1 Ml Inj IV 0.5 mg Q6H PRN Administration Pain, Moderate (4-6) Ondansetron HCl 4 mg 12/16/20 03:40 Ondansetron 4 Mg/2 Ml Inj IV Q8H PRN Nausea And Vomiting Simple Syrup 15 ml 12/22/20 08:19 Simple Syrup 15 Ml FEEDTUBE PRN PRN Hypoglycemia Simple Syrup 30 ml 12/22/20 08:19 Simple Syrup 15 Ml FEEDTUBE PRN PRN Hypoglycemia Sodium Bicarbonate 325 mg 12/22/20 10:34 Sodium Bicarbonate 325 Mg Tab FEEDTUBE PRN PRN For Clogged Feeding Tube Sodium Chloride 10 ml 12/16/20 10:00 01/02/21 22:11 Sodium Chloride 0.9% 10 Ml Flush Syringe IV 10 ml BID JEET Administration Sodium Chloride 10 ml 12/16/20 03:40 Sodium Chloride 0.9% 10 Ml Flush Syringe IV PRN PRN LINE FLUSH
[2021-01-03] MEDS: METOPROLOL TARTRATE 50 MG TAB PO SCH (10:54)
[2021-01-03] MEDS: DEXAMETHASONE 4 MG TAB PO SCH (10:55)
[2021-01-03] MEDS: ASCORBIC ACID 500 MG TAB PO SCH (10:55)
--- NOTE | 2021-01-03 11:18 | Progress Note ---
Assessment and Plan - Patient Problems (1) Elevated troponin Current Visit: Yes Status: Acute Plan to address problem: Troponin elevation, nonspecific finding in the setting of end-stage renal failure. An echocardiogram shows a four-chamber dilated cardiomyopathy, left ventricular ejection fraction 30 to 35%. There is mild to moderate mitral stenosis, moderate to severe mitral regurgitation, moderate to severe tricuspid regurgitation and severe pulmonary hypertension. Conservative medical therapy as tolerated for cardiomyopathy and valvular heart disease. Subjective Date of service: 01/03/21 Principal diagnosis: change in mentation,ESRD Interval history: Patient is on high flow oxygen. No cardiac events reported. Stable sinus rhythm on telemetry. Objective Vital Signs Temp Pulse Resp BP Pulse Ox 01/03/21 08:17 89 01/03/21 08:00 88 01/03/21 06:30 96 01/03/21 05:49 141/53 01/03/21 05:30 93 01/03/21 05:00 98.3 F 01/03/21 00:11 92 01/02/21 22:10 78 142/45 01/02/21 22:00 78 90 01/02/21 21:20 78 01/02/21 21:16 99.0 F 16 142/45 - Physical Examination Narrative exam: Deferred due to isolation protocol. General: No Apparent Distress, Cachectic Cardiac: Positive: Reg Rate and Rhythm - Labs and Meds Cardiac Enzymes 01/03/21 Range/Units 04:57 AST 60 H (5-40) units/L CBC 01/03/21 Range/Units 04:57 WBC 19.5 H (4.5-11.0) K/mm3 RBC 3.49 L (3.65-5.03) M/mm3 Hgb 11.0 (10.1-14.3) gm/dl Hct 36.0 (30.3-42.9) % Plt Count 158 (140-440) K/mm3 Comprehensive Metabolic Panel 01/03/21 01/03/21 Range/Units 04:57 04:57 Sodium 139 (137-145) mmol/L Potassium 5.4 H (3.6-5.0) mmol/L Chloride 94.0 L (98-107) mmol/L Carbon Dioxide 21 L (22-30) mmol/L BUN 67 H (7-17) mg/dL Creatinine 4.4 H 4.3 H (0.6-1.2) mg/dL Glucose 279 H (65-100) mg/dL Calcium 9.4 (8.4-10.2) mg/dL AST 60 H (5-40) units/L ALT 66 H (7-56) units/L Alkaline Phosphatase 268 H (35-129) units/L Total Protein 5.3 L (6.3-8.2) g/dL Albumin 2.7 L (3.9-5) g/dL - Allied health notes Allied health notes reviewed: nursing
--- NOTE | 2021-01-03 12:09 | Progress Note ---
Assessment and Plan Assessment and plan: The patient is a 70 YO female with history significant for Hypertension, Anemia, Arthritis, CAD s/p CABG and ESRD on hemodialysis (MWF) who presented to [facility] ED 12/16 with altered mental status. Patient was recently seen here in this hospital about a week ago with hyperkalemia during which she had emergent dialysis. She has had a COVID-19 vaccination. Work-up in the emergency room showed wbc 18.2, INR of 2.8, K 5.4, BUN 34, creatinine 5.6, Lactic acid of 6.6, elevated liver enzymes with AST 2838 and ALT 1353 and Troponin 0.72. Chest x-ray showed reduced lung volumes with probable bilateral atelectasis/edema. CT scan of the head showed no acute findings. Patient has been admitted with altered mental status, hyperkalemia, lactic acidosis, elevated liver enzymes and elevated troponin. Now she is tested positive for COVID-19: 12/25 Assessment and plan: --Positive COVID-19 infection -Patient tested positive for COVID-19 virus on 12/25 -Initiated on dexamethasone, not a candidate for remdesivir for ESRD -Consult ID and follow recommendation -Droplet/contact isolation -Continue SPO2 monitoring -Supplemental oxygen as needed -Pulmonary hygiene -Prone to sleep -Vitamin C, vitamin D, zinc -Anticoagulation per protocol --Acute hypoxic respiratory failure, likely due to COVID-19 pneumonia and underlying CHF Patient was resting on 2 L nasal cannula but currently placed on 8 L consulted pulmonary critical care, scheduled nebulizer breathing treatment, empiric steroid Wean off O2 as tolerated --Hypotension, now improved BP dropped to around 40s on 12/31 initiated home dose of midodrine Continue to follow clinically --Acute metabolic encephalopathy Possibly secondary to multiple underlying problems including possible sepsis, end-stage renal disease with hyperkalemia and elevated liver enzymes. Will monitor mental status. MRI brain without any acute infarct, neurology consulted and recommended to obtain EEG which is pending Patient remains pleasantly confused, continue supportive care and tube feeding --Suspected sepsis sepsis, POA No clear source of infection yet, completed Cefepime and Vancomycin ID following --Thrombocytopenia may be due to Sepsis. To r/o HIT She did not get any Heparin this admission but got Heparin last admission just few days earlier Obtain HIT test Consulted Hematology, discontinued all heparin and anticoagulation -- ESRD (end stage renal disease) Nephrology consulted for hemodialysis, follow BMP, avoid nephrotoxic agents --Hyperkalemia Possibly secondary to the end-stage renal disease. Patient treated with Kayexalate, insulin/glucose, sodium bicarb and will monitor potassium levels. --Elevated liver enzymes Etiology unclear, likely due to shock liver GI was consulted, liver serologies are negative Continue to trend and medical management --Elevated troponin/NSTEMI type II Possibly secondary to the underlying end-stage renal disease versus dilated cardiomyopathy versus sepsis. However we trend cardiac enzymes and request cardiology evaluation and recommendations. 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 We will monitor Accu-Cheks closely. --Bilateral lower extremity pressure sore ulcer and extensive PVD, unstageable Dr. Odom consulted and status post debridement on 12/27 Vascular recommended endovascular procedure when pt clinically more stable --Elevated JULIA Antidouble-stranded DNA marker is normal Likely patient has underlying auto inflammatory disease Need further outpatient, continue to follow clinically for now --DVT prophylaxis SCD for possible HIT, Eliquis is discontinued by hematology --Full code status Daily clinical course: 12/17/20 Patient with ESRD on hemodialysis presents with altered mental status, acute metabolic encephalopathy. Also has markedly elevated AST and ALT GI consulted. Her LFTs were normal last admission just 5 days ago. 12/18/20 Patient with ESRD on hemodialysis. Rapid response called this morning. She is very lethargic, minimal responsive. Bld glucose 45mg/dl and BP 74/15. She was given 1 amp D50. Blood glucose now 163. BP up to 123/30 but MAP still under 65. Will give 500 ml Normal Saline and transfer to [facility].I discussed with Dr. Chong, Nephrology. LFTs improving though still very high. 12/19/20 Patient with ESRD on hemodialysis. Rapid response called yesterday for hypoglycemia and hypotension, so transferred to [facility]. Blood glucose normalized. BP improved. 12/20/20 Patient with ESRD on hemodialysis. Presented with altered mental status. Was transferred to [facility] on 12/18/20. Still has altered mental status, very lethargic. MRI ordered. Neurology consulted. 12/21/20 Patient with ESRD on hemodialysis. Presented with altered mental status. Was transferred to [facility] on 12/18/20. Still has altered mental status, very lethargic. MRI ordered. EEG ordered. Patient ws evaluated by Neurology. Will talk to family. 12/22/20 Patient with ESRD on hemodialysis, diabetes,hypertension. She presented with altered mental status. She has been diagnosed with sepsis(POA), hypoglycemia, hypotension, thrombocytopenia. Was transferred to [facility] on 12/18/20 because of episode of hypoglycemia and hypotension. . Still has altered mental status, very lethargic. Neurology was consulted MRI ordered. EEG ordered. I spoke to daughter Michelle Kruger yesterday and gave update. For thrombocytopenia, will obtain HIT. Consult Hematology For blood in stool, will re-consult GI. Check H/H serially Elevated LFTs likely due to shock liver, improving 12/23/20 Patient with ESRD on hemodialysis, diabetes,hypertension. She present ed with altered mental status. She has been diagnosed with sepsis(POA), hypoglycemia, hypotension, thrombocytopenia. Was transferred to [facility] on 12/18/20 because of episode of hypoglycemia and hypotension. . Still has altered mental status, very lethargic. Neurology was consulted MRI ordered. EEG ordered. I spoke to daughter Michelle Kruger few days ago and gave update. Patient has thrombocytopenia, worsening 54 today. Consult Hematology. HIT ordered For blood in stool, will re-consult GI. Check H/H serially Elevated LFTs likely due to shock liver, improving. Was initially evaluated by GI patient stable to transfer back to [facility] since BP stable. 12/24/20; MRI brain yesterday showed extensive chronic changes but no acute infarct. Patient remains confused on TF. speech recommended pureed diet on prior assessment- will initiate. cont to follow 12/25/20: Ordered for Covid test, patient remains very lethargic, unable to tolerate p.o. we will continue on tube feeding. Continue supportive care. Evaluated by Dr. Odom at the bedside for bilateral lower extremity wound. Plan for debridement, continue to follow 12/26/20: Patient tested positive for COVID-19. Transfer to [facility]/Covid unit. Will place on Covid protocol, ID consult, obtain chest x-ray, initiate on dexamethasone. Patient daughter was notified about patient's positive Covid status. Continue to monitor clinically, patient remains confused. 12/27/20: Status post debridement by Dr. Lei today of bilateral lower extremities wound. MRI of lower extremities ordered. Her arterial duplex demonstrates monophasic waveforms throughout bilateral lower extremities, suggesting aortoiliac occlusive disease. She is unlikely to heal her wounds without an angiogram and improvement of her arterial flow in bilateral lower extremities. Vascular surgery consulted, patient will likely require angiogram. Follow inflammatory markers for COVID-19 pneumonia, not a candidate for remdesivir. Continue dexamethasone for now. Unable to start any anticoagulation due to thrombocytopenia. 12/28/20; plan for CT abdomen pelvis with contrast for extensive peripheral vascular disease. Vascular surgery following for possible angiogram. Continue to follow inflammatory markers, continue dexamethasone. Continue tube feeding diet. Speech evaluated the patient and recommended to hold oral diet. Continue to follow. 12/29/20; CT abdomen pelvis tomorrow as patient will need hemodialysis within 24 hours. Remains on tube feeding, wait for repeat speech eval. Continue supportive care. 12/30/20; patient failed swallow eval with speech. had a prolong discussion with daughter about further care and she wants to continue everything possible to be done. I explained patient with bedbound status with multiple pressure sore ulcers with poor healing, ESRD on HD, CHFrEF, extensive PVD, advanced dementia now failed speech eval and nonverbal. patient with all underlying conditions has very poor chance of good quality of life and her condition may continue to deteriorate even after appropriate treatment has given. Daughter stated she understands and still wants to proceed with PEg tube for nutrition and any vascular intervention if needed. I placed consult for GI for PEG placement and updated vascular about daughter's wish. 12/31/20: Patient noted to have more oxygen requirement since this morning, also had significantly low blood pressure SBP 140s. Patient had dialysis yesterday. Will order a stat chest x-ray, will initiate patient home medicine of midodrine. Discussed with daughter thoroughly about change in condition and is she is still wants to continue full CODE STATUS. Patient currently on 8 L nasal cannula, consulted pulmonary critical care. 01/01/21: Patient remains on 8 L nasal cannula O2, BP much stable today. Plan for dialysis. Again discussed with the daughter and patient and brother in length about CODE STATUS, patient care management. Family still in agreement for maintaining full CODE STATUS. Continue supportive care, monitor inflammatory markers and wean off O2 as tolerated. Chronically debilitated patient with multiple medical problems and comorbidities now positive for covid with increasing O2 demand, prognosis is extremely poor. 01/02/21 Patient with Covid-19 infection, acute resp failure. She is now on Oxygen at 10 l/min. She has multiple comorbidities. 01/03/21 patient with Covid-19 infection with acute resp failure. She is worsening, put on high flow Oxygen by ND early this morning. She has multiple comorbidities. Not on anticoagulation because of recent thro mbocytopenia Hyperkalemia with Potassium 5.4. Dialysis today History Interval history: Patient put on high flow Oxygen at 40 l/min Hospitalist Physical - Physical exam Narrative exam: Gen: Not in acute distress, On Oxygen by HFNC HEENT: Normocephalic, atraumatic Neck : supple, no JVD Lungs: Bilateral crackles, no wheeze Heart:S1 and S2 reg, no murmurs, rubs or gallop Abd: Soft , non tender, non distended, normal bowel sounds Ext: No edema, no clubbing, no cyanosis Neuro: Awake - Constitutional Vitals: Temp Pulse Resp BP Pulse Ox 98.3 F 78 16 141/53 89 01/03/21 05:00 01/02/21 22:10 01/02/21 21:16 01/03/21 05:49 01/03/21 08:17 General appearance: Present: no acute distress HEART Score - HEART Score Troponin: Troponin T 0.735 ng/mL (0.00-0.029) H* 12/26/20 19:48 Results - Labs CBC & Chem 7: 01/03/21 04:57 01/03/21 04:57 Labs: Laboratory Last Values WBC 19.5 K/mm3 (4.5-11.0) H 01/03/21 04:57 RBC 3.49 M/mm3 (3.65-5.03) L 01/03/21 04:57 Hgb 11.0 gm/dl (10.1-14.3) 01/03/21 04:57 Hct 36.0 % (30.3-42.9) 01/03/21 04:57 MCV 103 fl (79-97) H 01/03/21 04:57 MCH 31 pg (28-32) 01/03/21 04:57 MCHC 31 % (30-34) 01/03/21 04:57 RDW 26.1 % (13.2-15.2) H 01/03/21 04:57 Plt Count 158 K/mm3 (140-440) 01/03/21 04:57 Lymph % (Auto) 14.1 % (13.4-35.0) 12/28/20 05:48 Union % (Auto) 12.1 % (0.0-7.3) H 12/28/20 05:48 Eos % (Auto) 0.0 % (0.0-4.3) 12/28/20 05:48 Baso % (Auto) 0.2 % (0.0-1.8) 12/28/20 05:48 Lymph # (Auto) 1.2 K/mm3 (1.2-5.4) 12/28/20 05:48 Union # (Auto) 1.0 K/mm3 (0.0-0.8) H 12/28/20 05:48 Eos # (Auto) 0.0 K/mm3 (0.0-0.4) 12/28/20 05:48 Baso # (Auto) 0.0 K/mm3 (0.0-0.1) 12/28/20 05:48 Seg Neutrophils % 73.6 % (40.0-70.0) H 12/28/20 05:48 Seg Neutrophils # 6.1 K/mm3 (1.8-7.7) 12/28/20 05:48 ESR 53 mm/Hr (0-20) 12/23/20 14:56 PT 17.5 Sec. (12.2-14.9) H 12/28/20 15:37 INR 1.38 (0.87-1.13) H 12/28/20 15:37 APTT 28.1 Sec. (24.2-36.6) 12/28/20 15:37 Thrombin Time 16.9 Sec. (15.1-19.6) 12/16/20 00:57 D-Dimer 1585.97 ng/mlDDU (0-234) H 12/26/20 19:48 Heparin Anti-Xa, Unfract Negative (Negative) 12/22/20 16:37 VBG pH 7.334 (7.320-7.420) 12/16/20 00:57 Sodium 139 mmol/L (137-145) 01/03/21 04:57 Potassium 5.4 mmol/L (3.6-5.0) H 01/03/21 04:57 Chloride 94.0 mmol/L (98-107) L 01/03/21 04:57 Carbon Dioxide 21 mmol/L (22-30) L 01/03/21 04:57 Anion Gap 29 mmol/L 01/03/21 04:57 BUN 67 mg/dL (7-17) H 01/03/21 04:57 Creatinine 4.3 mg/dL (0.6-1.2) H 01/03/21 04:57 Creatinine 4.4 mg/dL (0.6-1.2) H 01/03/21 04:57 Estimated GFR 12 ml/min 01/03/21 04:57 Estimated GFR 12 ml/min 01/03/21 04:57 BUN/Creatinine Ratio 15 % 01/03/21 04:57 Glucose 279 mg/dL (65-100) H 01/03/21 04:57 POC Glucose 274 mg/dL (70-105) H 01/03/21 01:26 Hemoglobin A1c 7.1 % (4-6) H 12/18/20 05:57 Lactic Acid 2.40 mmol/L (0.7-2.0) H* 12/16/20 10:35 Calcium 9.4 mg/dL (8.4-10.2) 01/03/21 04:57 Magnesium 2.00 mg/dL (1.7-2.3) 12/26/20 19:48 Magnesium 2.00 mg/dL (1.7-2.3) 12/26/20 19:48 Ferritin 3421.0 ng/mL (10.0-200.0) H 12/26/20 19:48 Total Bilirubin 2.10 mg/dL (0.1-1.2) H 01/03/21 04:57 Direct Bilirubin 1.2 mg/dL (0-0.2) H 12/19/20 06:59 Indirect Bilirubin 0.5 mg/dL 12/19/20 06:59 AST 60 units/L (5-40) H 01/03/21 04:57 ALT 66 units/L (7-56) H 01/03/21 04:57 Alkaline Phosphatase 268 units/L (35-129) H 01/03/21 04:57 Ammonia 27.0 umol/L (25-60) 12/16/20 00:57 Lactate Dehydrogenase 581 units/L (91-180) H 12/26/20 19:48 Total Creatine Kinase 84 units/L (30-135) 12/16/20 00:57 CK-MB (CK-2) 5.1 ng/mL (0.0-4.0) H 12/16/20 00:57 CK-MB (CK-2) Rel Index 6.0 (0-4) H 12/16/20 00:57 Troponin T 0.735 ng/mL (0.00-0.029) H* 12/26/20 19:48 C-Reactive Protein 9.30 mg/dL (0.00-1.30) H 12/26/20 19:48 Total Protein 5.3 g/dL (6.3-8.2) L 01/03/21 04:57 Albumin 2.7 g/dL (3.9-5) L 01/03/21 04:57 Albumin/Globulin Ratio 1.0 % 01/03/21 04:57 Triglycerides 104 mg/dL (2-149) 12/16/20 00:57 Cholesterol 110 mg/dL (50-199) 12/16/20 00:57 LDL Cholesterol Direct 34 mg/dL (50-130) L 12/16/20 00:57 HDL Cholesterol 64 mg/dL (40-59) H 12/16/20 00:57 Cholesterol/HDL Ratio 1.71 % 12/16/20 00:57 Serotonin Release Assay See scanned results 12/22/20 16:37 Procalcitonin 3.32 ng/mL (<0.15) 12/26/20 19:48 TSH 4.000 mlU/mL (0.270-4.200) 12/17/20 05:42 Free T4 1.54 ng/dL (0.76-1.46) H 12/16/20 00:57 Random Vancomycin 14.3 ug/mL (0-40.0) 12/18/20 05:57 Acetaminophen 5.0 ug/mL (10.0-30.0) L 12/16/20 05:48 Plasma/Serum Alcohol < 0.01 % (0-0.07) 12/16/20 00:57 JULIA Screen Positive (Negative) H 12/17/20 05:42 Double Strand DNA Ab 1 IU/mL (<=4) 12/23/20 14:56 Heparin-induced Plt Ab Negative (Negative) 12/22/20 16:37 UF Heparin High Dose 1 % Release 12/22/20 16:37 MINERVA UFH Low Dose 0.1 1 % Release 12/22/20 16:37 MINERVA UFH Low Dose 0.5 1 % Release 12/22/20 16:37 Coronavirus (PCR) Positive (Negative) A 12/24/20 Unknown Hepatitis A IgM Ab Non-reactive (NonReactive) 12/16/20 03:55 Hep Bs Antigen Non-reactive (Negative) 12/16/20 03:55 Hep B Core IgM Ab Non-reactive (NonReactive) 12/16/20 03:55 Hepatitis C Antibody Non-reactive (NonReactive) 12/16/20 03:55 [place]/IV: Voiding Method Incontinent Active Medications - Current Medications Current Medications: Generic Name Dose Route Start Last Admin Trade Name Freq PRN Reason Stop Dose Admin Lipase/Protease/Amylase 1 each 12/22/20 10:34 Lipase 10,500/Protease 25,000/Amylase 43,750 (Units) Dr Lazar FEEDTUBE PRN PRN For Clogged Feeding Tube Ascorbic Acid 1,000 mg 12/26/20 22:00 01/03/21 10:55 Ascorbic Acid 500 Mg Tab PO 1,000 mg BID JEET Administration Cholecalciferol 5,000 unit 12/26/20 15:00 01/02/21 09:52 Cholecalciferol (Vit D3) 5,000 Unit Tab PO 5,000 unit DAILY JEET Administration Dexamethasone 6 mg 12/26/20 15:00 01/03/21 10:55 Dexamethasone 4 Mg Tab PO 01/04/21 10:01 6 mg Q24HR JEET Administration Dextrose 0 ml 12/16/20 03:40 12/18/20 08:23 Dextrose 50% In Water (25gm) 50 Ml Syringe IV 50 ml Q30MIN PRN Administration Hypoglycemia Protocol Heparin Sodium (Porcine) 5,000 unit 01/02/21 22:00 01/02/21 22:10 Heparin 5,000 Unit/1 Ml Vial SUB-Q 5,000 unit Q12HR JEET Administration Sodium Chloride 100 mls @ 999 mls/hr 12/20/20 09:20 Nacl 0.9% IV ROSA M PRN Hypotension Ceftriaxone Sodium 2 gm in 100 mls @ 200 mls/hr 01/02/21 15:00 01/02/21 16:28 Rocephin/Ns 2 Gm/100 Ml IV 200 mls/hr Q24H JEET Administration Protocol Azithromycin 500 mg in 250 mls @ 250 mls/hr 01/02/21 15:00 01/02/21 16:29 Zithromax/Ns IV 250 mls/hr Q24H JEET Administration Insulin Human Regular 0 units 12/24/20 18:00 01/03/21 06:41 Insulin Regular, Human 100 Units/1 Ml SUB-Q 3 units Q6HR JEET Administration Protocol Lansoprazole 30 mg 12/25/20 10:00 01/02/21 09:52 Lansoprazole 30 Mg Solutab FEEDTUBE 30 mg QDAY JEET Administration Magnesium Hydroxide 30 ml 12/16/20 03:40 Magnesium Hydroxide (Mom) Oral Liqd Udc PO Q4H PRN Constipation Metoprolol Tartrate 50 mg 12/26/20 22:00 01/03/21 10:54 Metoprolol Tartrate 50 Mg Tab PO 50 mg BID JEET Administration Midodrine 15 mg 12/31/20 18:00 01/03/21 07:42 Midodrine 5 Mg Tab PO Not Given 0600,1200,1800 [facility] Morphine Sulfate 0.5 mg 12/18/20 13:00 12/31/20 23:04 Morphine 2 Mg/1 Ml Inj IV 0.5 mg Q6H PRN Administration Pain, Moderate (4-6) Ondansetron HCl 4 mg 12/16/20 03:40 Ondansetron 4 Mg/2 Ml Inj IV Q8H PRN Nausea And Vomiting Simple Syrup 15 ml 12/22/20 08:19 Simple Syrup 15 Ml FEEDTUBE PRN PRN Hypoglycemia Simple Syrup 30 ml 12/22/20 08:19 Simple Syrup 15 Ml FEEDTUBE PRN PRN Hypoglycemia Sodium Bicarbonate 325 mg 12/22/20 10:34 Sodium Bicarbonate 325 Mg Tab FEEDTUBE PRN PRN For Clogged Feeding Tube Sodium Chloride 10 ml 12/16/20 10:00 01/02/21 22:11 Sodium Chloride 0.9% 10 Ml Flush Syringe IV 10 ml BID JEET Administration Sodium Chloride 10 ml 12/16/20 03:40 Sodium Chloride 0.9% 10 Ml Flush Syringe IV PRN PRN LINE FLUSH Nutrition/Malnutrition Assess - Dietary Evaluation Nutrition/Malnutrition Findings: Nutrition Notes Start: 12/16/20 14:32 Freq: Status: Active Protocol: Document 01/02/21 14:26 (Rec: 01/02/21 14:32 [email or web address]) Nutrition Notes Need for Assessment generated from: MD Order Initial or Follow up Reassessment Current Diagnosis CKD (stage V CKD),Diabetes, Hypertension Other Pertinent Diagnosis AMS, Elevated LFTs Current Diet TF Labs/Tests POC BG 103-335 Pertinent Medications Decadron Height 5 ft 6 in Weight 68.3 kg [place] Body Weight (kg) 59.09 BMI 24.3 Weight Status Appropriate Subjective/Other Information MD consult for TF. NGT was pulled out and RN was able to replace. Burn Absent Trauma Absent GI Symptoms None Current % PO Negligible Minimum of two criteria No physical signs of malnutrition #1 Nutrition Diagnosis Increased nutrient needs ( specify in comment below) Diagnosis Progress(for reassessment Continues documentation) Is patient on ventilator? No Is Patient Ambulatory and/or Out of Bed No REE-([place]oughton-St. Jeor-confined to bed) [phone] Calculation Used for Recommendations [place]-St Jeor Additional Notes Pro needs >1.2g/kg: >82g/day Fluid needs 1-1.5L/day Nutrition Intervention Change Diet Order: Start TF Nutrition Support: Continue Nepro at 35ml/hr with 150ml water flush q4h. Kcal 1,512 Protein (gm) 68 Fluid (mL) 611 Goal #1 TF tolerance Goal #2 TF to meet at least 75% energy and pro needs Follow-Up By: 01/06/21 Additional Comments F/u: TF restart and tolerance
[2021-01-03] MEDS: LANSOPRAZOLE 30 MG SOLUTAB FEEDTUBE SCH (12:57)
[2021-01-03] MEDS: CHOLECALCIFEROL (VIT D3) 5,000 UNIT TAB PO SCH (12:57)
[2021-01-03] MEDS: HEPARIN 5,000 UNIT/1 ML VIAL SUB-Q SCH ×2 (12:57→13:23)
--- NOTE | 2021-01-03 13:19 | Progress Note ---
Assessment and Plan Cultures: 12/16/2020 blood culture: No growth A/P: 70-year-old female with diabetes, hypertension, ESRD admitted to the hospital on 12/16/2020 due to altered mental status: #COVID pneumonia: increasing inflammatory markers, worsening overall picture in chronically ill patient with numerous comorbidities. #Acute hypoxic respiratory failure: on HFNC now, worsening status. #Bilateral lower extremity wounds, ?some wounds may be calciphylaxis: Wound care, dialysis compliance. b/l arterial dopplers of LE with diffuse disease, no focal stenosis. #ESRD on HD: Renally dose antibiotics. #Elevated LFTs: Downtrending. Abdominal ultrasound showed contracted gallbladder, no other acute abnormality. Hepatitis panel negative. #Thrombocytopenia Recs: -On dexamethasone for COVD, complete 10 days. -White count continues to worsen, started ceftriaxone/azithromycin. Complete 5 days. -ordered repeat CRP, if >7.5 please give Actemra. -Not a remdesivir candidate due to renal failure. -Wound care, offloading as possible -Family refusing amputation. very poor prognosis. Dr. Gifford covering this weekend, Dr. Tobar taking over Wednesday. Sohail Jay MD [facility] O: [phone] F: [phone] Subjective Date of service: 01/03/21 Principal diagnosis: change in mentation,ESRD Interval history: Afebrile, white count 19.5. On high flow nasal cannula. She is worsening now. Objective - Exam Narrative Exam: Physical exam deferred to reduce risk of transmission of COVID-19. Please refer to primary team's note. - Constitutional Vitals: Vital Signs Temp Pulse Resp BP Pulse Ox 98.3 F 78 16 141/53 89 01/03/21 05:00 01/02/21 22:10 01/02/21 21:16 01/03/21 05:49 01/03/21 08:17 Temperature -Last 24 Hours Temperature 98.3 F Temperature 99.0 F - Labs CBC & Chem 7: 01/03/21 04:57 01/03/21 04:57 Labs: Abnormal lab results 01/03/21 01/03/21 01/03/21 Range/Units 01:26 04:57 04:57 WBC 19.5 H (4.5-11.0) K/mm3 RBC 3.49 L (3.65-5.03) M/mm3 MCV 103 H (79-97) fl RDW 26.1 H (13.2-15.2) % Potassium 5.4 H (3.6-5.0) mmol/L Chloride 94.0 L (98-107) mmol/L Carbon Dioxide 21 L (22-30) mmol/L BUN 67 H (7-17) mg/dL Creatinine 4.4 H (0.6-1.2) mg/dL Glucose 279 H (65-100) mg/dL POC Glucose 274 H (70-105) mg/dL Total Bilirubin 2.10 H (0.1-1.2) mg/dL AST 60 H (5-40) units/L ALT 66 H (7-56) units/L Alkaline Phosphatase 268 H (35-129) units/L Total Protein 5.3 L (6.3-8.2) g/dL Albumin 2.7 L (3.9-5) g/dL 01/03/21 01/03/21 Range/Units 04:57 12:37 WBC (4.5-11.0) K/mm3 RBC (3.65-5.03) M/mm3 MCV (79-97) fl RDW (13.2-15.2) % Potassium (3.6-5.0) mmol/L Chloride (98-107) mmol/L Carbon Dioxide (22-30) mmol/L BUN (7-17) mg/dL Creatinine 4.3 H (0.6-1.2) mg/dL Glucose (65-100) mg/dL POC Glucose < 10 L (70-105) mg/dL Total Bilirubin (0.1-1.2) mg/dL AST (5-40) units/L ALT (7-56) units/L Alkaline Phosphatase (35-129) units/L Total Protein (6.3-8.2) g/dL Albumin (3.9-5) g/dL
--- NOTE | 2021-01-03 14:52 | Progress Note ---
Assessment and Plan Acute Hypoxemic Respiratory Failure COVID-19 infection Pneumonia vs Pulmonary Edema Dilated cardiomyopathy Hypertension Diabetes mellitus ESRD (end stage renal disease) - get KUB to confirm NGT placement - continue HD/UF for toxin and volume clearance - Remdesivir as per ID/Pulmonary developed protocols (not a candidate) - continue systemic steroids for severe COVID-19 infection - follow repeat COVID tests results - zinc and vitamin C supplementation - Monitor inflammatory markers per facility protocol - ferritin, D-dimer, CRP - therapeutic anticoagulation per system Protocol based on d-dimer and clinical considerations (VTE prophylaxis dose) - Continue contact and airborne isolation - continue to wean supplemental oxygen to keep O2 sats > 92% - bronchodilators (NATE) with pulm hygiene per RT - continue systemic steroids with slow taper - HD/UF per nephrology prescription for toxin and volume clearance - continue to avoid nephrotoxins, renally dose all medications - continue mobility protocols to prevent pressure ulcers - PT/OT as tolerated - Wound care per RN/WCT - continue accuchecks with glycemic control per SSI for target blood glucose < 180 mg/dL - home oxygen evaluation at discharge - GI & VTE prophylaxis - Flu & pneumovax per protocol - Pulmonary out patient follow up for PFTs and optimization of respiratory status - continue other care per attending / other consultants - prn analgesia per pain score ... re-evaluate in am & prn Subjective Date of service: 01/03/21 Principal diagnosis: Ac Hypoxemic Resp Failure; COVID-19 infxn; PNA; CMOP; HTN; DM II; ESRD Interval history: Patient is seen today for: Acute Hypoxemic Respiratory Failure; COVID-19 infection; Pneumonia vs Pulomonary Edema; CMOP; HTN; DM II; ESRD Seen and examined at bedside; 24hour events reviewed; nursing and respiratory care staff consulted; no adverse overnight events reported to me; resting in bed; Objective Vital Signs - 12hr 01/03/21 01/03/21 01/03/21 05:00 05:30 05:49 Temperature 98.3 F Blood Pressure 141/53 O2 Sat by Pulse 93 Oximetry 01/03/21 01/03/21 01/03/21 06:30 08:00 08:17 Temperature Blood Pressure O2 Sat by Pulse 96 88 89 Oximetry Constitutional: no acute distress, asleep Eyes: non-icteric ENT: oropharynx moist Neck: supple Effort: mildly labored Ascultation: Bilateral: rales, rhonchi Percussion: Bilateral: not dull Cardiovascular: regular rate and rhythm Gastrointestinal: normoactive bowel sounds, soft, non-tender Integumentary: normal Extremities: no cyanosis Neurologic: other (patient asleep so unable to assess) Psychiatric: other (patient asleep so unable to assess) CBC and BMP: 01/03/21 04:57 01/03/21 04:57 ABG, PT/INR, D-dimer: PT/INR, D-dimer PT 17.5 Sec. (12.2-14.9) H 12/28/20 15:37 INR 1.38 (0.87-1.13) H 12/28/20 15:37 D-Dimer 1585.97 ng/mlDDU (0-234) H 12/26/20 19:48 Abnormal lab findings: Abnormal Labs 12/16/20 12/16/20 12/16/20 00:38 00:57 00:57 WBC 18.2 H RBC 3.13 L Hgb 9.4 L Hct MCV 100 H MCHC RDW 22.7 H Plt Count Lymph % (Auto) 8.0 L [place] % (Auto) 7.8 H [place] # (Auto) 1.4 H Seg Neutrophils % 83.4 H Seg Neutrophils # 15.2 H PT 29.9 H INR 2.80 H APTT 39.9 H D-Dimer Sodium Potassium Chloride Carbon Dioxide BUN Creatinine Glucose POC Glucose 116 H Hemoglobin A1c Lactic Acid Calcium Ferritin Total Bilirubin Direct Bilirubin AST ALT Alkaline Phosphatase Lactate Dehydrogenase CK-MB (CK-2) CK-MB (CK-2) Rel Index Troponin T C-Reactive Protein Total Protein Albumin LDL Cholesterol Direct HDL Cholesterol TSH Free T4 Acetaminophen JULIA Screen Coronavirus (PCR) 12/16/20 12/16/20 12/16/20 00:57 00:57 00:57 WBC RBC Hgb Hct MCV MCHC RDW Plt Count Lymph % (Auto) [place] % (Auto) [place] # (Auto) Seg Neutrophils % Seg Neutrophils # PT INR APTT D-Dimer Sodium 136 L Potassium 5.4 H Chloride 94.2 L Carbon Dioxide 18 L D BUN 34 H Creatinine 5.6 H Glucose 108 H POC Glucose Hemoglobin A1c Lactic Acid 8.10 H* Calcium Ferritin Total Bilirubin 1.30 H Direct Bilirubin AST 2838 H ALT 1353 H Alkaline Phosphatase 186 H Lactate Dehydrogenase CK-MB (CK-2) 5.1 H CK-MB (CK-2) Rel Index 6.0 H Troponin T 0.720 H* C-Reactive Protein Total Protein Albumin 3.2 L LDL Cholesterol Direct 34 L HDL Cholesterol 64 H TSH 6.720 H Free T4 1.54 H Acetaminophen JULIA Screen Coronavirus (PCR) 12/16/20 12/16/20 12/16/20 01:45 05:48 05:48 WBC RBC Hgb Hct MCV MCHC RDW Plt Count Lymph % (Auto) [place] % (Auto) [place] # (Auto) Seg Neutrophils % Seg Neutrophils # PT INR APTT D-Dimer Sodium Potassium Chloride Carbon Dioxide BUN Creatinine Glucose POC Glucose Hemoglobin A1c Lactic Acid 6.60 H* 6.00 H* Calcium Ferritin Total Bilirubin Direct Bilirubin AST ALT Alkaline Phosphatase Lactate Dehydrogenase CK-MB (CK-2) CK-MB (CK-2) Rel Index Troponin T 0.731 H* C-Reactive Protein Total Protein Albumin LDL Cholesterol Direct HDL Cholesterol TSH Free T4 Acetaminophen JULIA Screen Coronavirus (PCR) 12/16/20 12/16/20 12/16/20 05:48 05:48 07:57 WBC RBC Hgb Hct MCV MCHC RDW Plt Count Lymph % (Auto) [place] % (Auto) [place] # (Auto) Seg Neutrophils % Seg Neutrophils # PT INR APTT D-Dimer Sodium Potassium Chloride Carbon Dioxide BUN Creatinine Glucose POC Glucose 115 H 118 H Hemoglobin A1c Lactic Acid Calcium Ferritin Total Bilirubin Direct Bilirubin AST ALT Alkaline Phosphatase Lactate Dehydrogenase CK-MB (CK-2) CK-MB (CK-2) Rel Index Troponin T C-Reactive Protein Total Protein Albumin LDL Cholesterol Direct HDL Cholesterol TSH Free T4 Acetaminophen 5.0 L JULIA Screen Coronavirus (PCR) 12/16/20 12/16/20 12/16/20 10:35 11:30 16:12 WBC RBC Hgb Hct MCV MCHC RDW Plt Count Lymph % (Auto) [place] % (Auto) [place] # (Auto) Seg Neutrophils % Seg Neutrophils # PT INR APTT D-Dimer Sodium Potassium Chloride Carbon Dioxide BUN Creatinine Glucose POC Glucose 124 H 115 H Hemoglobin A1c Lactic Acid 2.40 H* Calcium Ferritin Total Bilirubin Direct Bilirubin AST ALT Alkaline Phosphatase Lactate Dehydrogenase CK-MB (CK-2) CK-MB (CK-2) Rel Index Troponin T C-Reactive Protein Total Protein Albumin LDL Cholesterol Direct HDL Cholesterol TSH Free T4 Acetaminophen JULIA Screen Coronavirus (PCR) 12/16/20 12/17/20 12/17/20 21:00 05:42 05:42 WBC 12.0 H RBC 2.52 L Hgb 7.6 L Hct 24.6 L D MCV 98 H MCHC RDW 22.7 H Plt Count 137 L Lymph % (Auto) 9.7 L [place] % (Auto) 8.3 H [place] # (Auto) 1.0 H Seg Neutrophils % 78.2 H Seg Neutrophils # 9.4 H PT 26.3 H INR 2.36 H APTT D-Dimer Sodium Potassium Chloride Carbon Dioxide BUN Creatinine Glucose POC Glucose 149 H Hemoglobin A1c Lactic Acid Calcium Ferritin Total Bilirubin Direct Bilirubin AST ALT Alkaline Phosphatase Lactate Dehydrogenase CK-MB (CK-2) CK-MB (CK-2) Rel Index Troponin T C-Reactive Protein Total Protein Albumin LDL Cholesterol Direct HDL Cholesterol TSH Free T4 Acetaminophen JULIA Screen Coronavirus (PCR) 12/17/20 12/17/20 12/17/20 05:42 05:42 05:42 WBC RBC Hgb Hct MCV MCHC RDW Plt Count Lymph % (Auto) [place] % (Auto) [place] # (Auto) Seg Neutrophils % Seg Neutrophils # PT INR APTT D-Dimer Sodium Potassium Chloride Carbon Dioxide BUN 28 H Creatinine 4.5 H Glucose 176 H POC Glucose Hemoglobin A1c Lactic Acid Calcium Ferritin Total Bilirubin Direct Bilirubin 0.6 H AST 1744 H ALT 1938 H Alkaline Phosphatase 158 H Lactate Dehydrogenase CK-MB (CK-2) CK-MB (CK-2) Rel Index Troponin T C-Reactive Protein Total Protein 5.7 L Albumin 2.7 L LDL Cholesterol Direct HDL Cholesterol TSH Free T4 Acetaminophen JULIA Screen Positive H Coronavirus (PCR) 12/17/20 12/17/20 12/17/20 09:54 12:30 16:32 WBC RBC Hgb Hct MCV MCHC RDW Plt Count Lymph % (Auto) [place] % (Auto) [place] # (Auto) Seg Neutrophils % Seg Neutrophils # PT INR APTT D-Dimer Sodium Potassium Chloride Carbon Dioxide BUN Creatinine Glucose POC Glucose 150 H 154 H 146 H Hemoglobin A1c Lactic Acid Calcium Ferritin Total Bilirubin Direct Bilirubin AST ALT Alkaline Phosphatase Lactate Dehydrogenase CK-MB (CK-2) CK-MB (CK-2) Rel Index Troponin T C-Reactive Protein Total Protein Albumin LDL Cholesterol Direct HDL Cholesterol TSH Free T4 Acetaminophen JULIA Screen Coronavirus (PCR) 12/17/20 12/18/20 12/18/20 20:26 05:57 05:57 WBC 14.8 H RBC 2.70 L Hgb 8.2 L Hct 27.5 L MCV 102 H MCHC RDW 22.5 H Plt Count 87 L Lymph % (Auto) [place] % (Auto) [place] # (Auto) Seg Neutrophils % Seg Neutrophils # PT INR APTT D-Dimer Sodium Potassium Chloride Carbon Dioxide 18 L D BUN 36 H Creatinine 6.0 H Glucose 63 L POC Glucose 107 H Hemoglobin A1c Lactic Acid Calcium Ferritin Total Bilirubin 1.30 H Direct Bilirubin AST 1403 H ALT 1839 H Alkaline Phosphatase 149 H Lactate Dehydrogenase CK-MB (CK-2) CK-MB (CK-2) Rel Index Troponin T C-Reactive Protein Total Protein 5.6 L Albumin 2.6 L LDL Cholesterol Direct HDL Cholesterol TSH Free T4 Acetaminophen JULIA Screen Coronavirus (PCR) 12/18/20 12/18/20 12/18/20 05:57 08:03 08:14 WBC RBC Hgb Hct MCV MCHC RDW Plt Count Lymph % (Auto) [place] % (Auto) [place] # (Auto) Seg Neutrophils % Seg Neutrophils # PT INR APTT D-Dimer Sodium Potassium Chloride Carbon Dioxide BUN Creatinine Glucose POC Glucose 45 L 163 H Hemoglobin A1c 7.1 H Lactic Acid Calcium Ferritin Total Bilirubin Direct Bilirubin AST ALT Alkaline Phosphatase Lactate Dehydrogenase CK-MB (CK-2) CK-MB (CK-2) Rel Index Troponin T C-Reactive Protein Total Protein Albumin LDL Cholesterol Direct HDL Cholesterol TSH Free T4 Acetaminophen JULIA Screen Coronavirus (PCR) 12/18/20 12/18/20 12/18/20 10:04 11:40 18:00 WBC RBC Hgb Hct MCV MCHC RDW Plt Count Lymph % (Auto) [place] % (Auto) [place] # (Auto) Seg Neutrophils % Seg Neutrophils # PT INR APTT D-Dimer Sodium Potassium Chloride Carbon Dioxide BUN Creatinine Glucose POC Glucose 129 H 128 H 161 H Hemoglobin A1c Lactic Acid Calcium Ferritin Total Bilirubin Direct Bilirubin AST ALT Alkaline Phosphatase Lactate Dehydrogenase CK-MB (CK-2) CK-MB (CK-2) Rel Index Troponin T C-Reactive Protein Total Protein Albumin LDL Cholesterol Direct HDL Cholesterol TSH Free T4 Acetaminophen JULIA Screen Coronavirus (PCR) 12/18/20 12/19/20 12/19/20 21:40 01:26 05:49 WBC RBC Hgb Hct MCV MCHC RDW Plt Count Lymph % (Auto) [place] % (Auto) [place] # (Auto) Seg Neutrophils % Seg Neutrophils # PT INR APTT D-Dimer Sodium Potassium Chloride Carbon Dioxide BUN Creatinine Glucose POC Glucose 138 H 148 H 136 H Hemoglobin A1c Lactic Acid Calcium Ferritin Total Bilirubin Direct Bilirubin AST ALT Alkaline Phosphatase Lactate Dehydrogenase CK-MB (CK-2) CK-MB (CK-2) Rel Index Troponin T C-Reactive Protein Total Protein Albumin LDL Cholesterol Direct HDL Cholesterol TSH Free T4 Acetaminophen JULIA Screen Coronavirus (PCR) 12/19/20 12/19/20 12/19/20 06:59 06:59 08:38 WBC 12.1 H RBC 2.76 L Hgb 8.5 L Hct 27.8 L MCV 101 H MCHC RDW 22.3 H Plt Count 82 L Lymph % (Auto) [place] % (Auto) [place] # (Auto) Seg Neutrophils % Seg Neutrophils # PT INR APTT D-Dimer Sodium 147 H Potassium Chloride Carbon Dioxide BUN 21 H Creatinine 3.9 H Glucose 144 H POC Glucose 139 H Hemoglobin A1c Lactic Acid Calcium Ferritin Total Bilirubin 1.70 H Direct Bilirubin 1.2 H AST 871 H ALT 1552 H Alkaline Phosphatase 146 H Lactate Dehydrogenase CK-MB (CK-2) CK-MB (CK-2) Rel Index Troponin T C-Reactive Protein Total Protein 5.6 L Albumin 2.7 L LDL Cholesterol Direct HDL Cholesterol TSH Free T4 Acetaminophen JULIA Screen Coronavirus (PCR) 12/19/20 12/19/20 12/19/20 11:45 16:01 22:03 WBC RBC Hgb Hct MCV MCHC RDW Plt Count Lymph % (Auto) [place] % (Auto) [place] # (Auto) Seg Neutrophils % Seg Neutrophils # PT INR APTT D-Dimer Sodium Potassium Chloride Carbon Dioxide BUN Creatinine Glucose POC Glucose 138 H 141 H 121 H Hemoglobin A1c Lactic Acid Calcium Ferritin Total Bilirubin Direct Bilirubin AST ALT Alkaline Phosphatase Lactate Dehydrogenase CK-MB (CK-2) CK-MB (CK-2) Rel Index Troponin T C-Reactive Protein Total Protein Albumin LDL Cholesterol Direct HDL Cholesterol TSH Free T4 Acetaminophen JULIA Screen Coronavirus (PCR) 12/20/20 12/20/20 12/20/20 03:18 05:46 05:48 WBC RBC Hgb Hct MCV MCHC RDW Plt Count Lymph % (Auto) [place] % (Auto) [place] # (Auto) Seg Neutrophils % Seg Neutrophils # PT INR APTT D-Dimer Sodium 146 H Potassium Chloride 109.6 H Carbon Dioxide 21 L BUN 32 H Creatinine 5.5 H Glucose 124 H POC Glucose 142 H 125 H Hemoglobin A1c Lactic Acid Calcium Ferritin Total Bilirubin Direct Bilirubin AST ALT Alkaline Phosphatase Lactate Dehydrogenase CK-MB (CK-2) CK-MB (CK-2) Rel Index Troponin T C-Reactive Protein Total Protein Albumin LDL Cholesterol Direct HDL Cholesterol TSH Free T4 Acetaminophen JULIA Screen Coronavirus (PCR) 12/20/20 12/20/20 12/20/20 10:26 12:32 12:38 WBC RBC 2.64 L Hgb 8.1 L Hct 26.2 L MCV 99 H MCHC RDW 22.8 H Plt Count 82 L Lymph % (Auto) [place] % (Auto) [place] # (Auto) Seg Neutrophils % Seg Neutrophils # PT INR APTT D-Dimer Sodium Potassium Chloride Carbon Dioxide BUN Creatinine Glucose POC Glucose 139 H 136 H Hemoglobin A1c Lactic Acid Calcium Ferritin Total Bilirubin Direct Bilirubin AST ALT Alkaline Phosphatase Lactate Dehydrogenase CK-MB (CK-2) CK-MB (CK-2) Rel Index Troponin T C-Reactive Protein Total Protein Albumin LDL Cholesterol Direct HDL Cholesterol TSH Free T4 Acetaminophen JULIA Screen Coronavirus (PCR) 12/20/20 12/20/20 12/20/20 16:05 20:00 23:23 WBC RBC Hgb Hct MCV MCHC RDW Plt Count Lymph % (Auto) [place] % (Auto) [place] # (Auto) Seg Neutrophils % Seg Neutrophils # PT INR APTT D-Dimer Sodium Potassium Chloride Carbon Dioxide BUN Creatinine Glucose POC Glucose 123 H 116 H 112 H Hemoglobin A1c Lactic Acid Calcium Ferritin Total Bilirubin Direct Bilirubin AST ALT Alkaline Phosphatase Lactate Dehydrogenase CK-MB (CK-2) CK-MB (CK-2) Rel Index Troponin T C-Reactive Protein Total Protein Albumin LDL Cholesterol Direct HDL Cholesterol TSH Free T4 Acetaminophen JULIA Screen Coronavirus (PCR) 12/21/20 12/21/20 12/22/20 08:38 11:21 03:28 WBC RBC Hgb Hct MCV MCHC RDW Plt Count Lymph % (Auto) [place] % (Auto) [place] # (Auto) Seg Neutrophils % Seg Neutrophils # PT INR APTT D-Dimer Sodium Potassium Chloride Carbon Dioxide BUN Creatinine Glucose POC Glucose 127 H 117 H 125 H Hemoglobin A1c Lactic Acid Calcium Ferritin Total Bilirubin Direct Bilirubin AST ALT Alkaline Phosphatase Lactate Dehydrogenase CK-MB (CK-2) CK-MB (CK-2) Rel Index Troponin T C-Reactive Protein Total Protein Albumin LDL Cholesterol Direct HDL Cholesterol TSH Free T4 Acetaminophen JULIA Screen Coronavirus (PCR) 12/22/20 12/22/20 12/22/20 05:06 05:06 07:42 WBC RBC 2.82 L Hgb 8.8 L Hct 28.6 L MCV 101 H MCHC RDW 23.8 H Plt Count 67 L Lymph % (Auto) [place] % (Auto) [place] # (Auto) Seg Neutrophils % Seg Neutrophils # PT INR APTT D-Dimer Sodium Potassium Chloride Carbon Dioxide BUN 30 H Creatinine 5.1 H Glucose 123 H POC Glucose 117 H Hemoglobin A1c Lactic Acid Calcium 8.3 L Ferritin Total Bilirubin 2.70 H Direct Bilirubin AST 150 H ALT 644 H Alkaline Phosphatase 148 H Lactate Dehydrogenase CK-MB (CK-2) CK-MB (CK-2) Rel Index Troponin T C-Reactive Protein Total Protein 5.6 L Albumin 2.3 L LDL Cholesterol Direct HDL Cholesterol TSH Free T4 Acetaminophen JULIA Screen Coronavirus (PCR) 12/22/20 12/22/20 12/22/20 11:45 16:22 16:37 WBC RBC Hgb 9.4 L Hct MCV MCHC RDW Plt Count Lymph % (Auto) [place] % (Auto) [place] # (Auto) Seg Neutrophils % Seg Neutrophils # PT INR APTT D-Dimer Sodium Potassium Chloride Carbon Dioxide BUN Creatinine Glucose POC Glucose 113 H 115 H Hemoglobin A1c Lactic Acid Calcium Ferritin Total Bilirubin Direct Bilirubin AST ALT Alkaline Phosphatase Lactate Dehydrogenase CK-MB (CK-2) CK-MB (CK-2) Rel Index Troponin T C-Reactive Protein Total Protein Albumin LDL Cholesterol Direct HDL Cholesterol TSH Free T4 Acetaminophen JULIA Screen Coronavirus (PCR) 12/22/20 12/22/20 12/23/20 19:52 23:35 04:17 WBC RBC Hgb Hct MCV MCHC RDW Plt Count Lymph % (Auto) [place] % (Auto) [place] # (Auto) Seg Neutrophils % Seg Neutrophils # PT INR APTT D-Dimer Sodium Potassium Chloride Carbon Dioxide BUN Creatinine Glucose POC Glucose 119 H 143 H 170 H Hemoglobin A1c Lactic Acid Calcium Ferritin Total Bilirubin Direct Bilirubin AST ALT Alkaline Phosphatase Lactate Dehydrogenase CK-MB (CK-2) CK-MB (CK-2) Rel Index Troponin T C-Reactive Protein Total Protein Albumin LDL Cholesterol Direct HDL Cholesterol TSH Free T4 Acetaminophen JULIA Screen Coronavirus (PCR) 12/23/20 12/23/20 12/23/20 06:06 07:31 08:14 WBC RBC 3.03 L Hgb 8.8 L 9.6 L Hct 28.1 L MCV 100 H MCHC RDW 25.2 H Plt Count 54 L Lymph % (Auto) [place] % (Auto) [place] # (Auto) Seg Neutrophils % Seg Neutrophils # PT INR APTT D-Dimer Sodium Potassium Chloride Carbon Dioxide BUN Creatinine Glucose POC Glucose 174 H Hemoglobin A1c Lactic Acid Calcium Ferritin Total Bilirubin Direct Bilirubin AST ALT Alkaline Phosphatase Lactate Dehydrogenase CK-MB (CK-2) CK-MB (CK-2) Rel Index Troponin T C-Reactive Protein Total Protein Albumin LDL Cholesterol Direct HDL Cholesterol TSH Free T4 Acetaminophen JULIA Screen Coronavirus (PCR) 12/23/20 12/23/20 12/23/20 14:56 16:49 23:44 WBC RBC Hgb 9.1 L Hct 29.6 L MCV MCHC RDW Plt Count Lymph % (Auto) [place] % (Auto) [place] # (Auto) Seg Neutrophils % Seg Neutrophils # PT INR APTT D-Dimer Sodium Potassium Chloride Carbon Dioxide BUN Creatinine Glucose POC Glucose 212 H 223 H Hemoglobin A1c Lactic Acid Calcium Ferritin Total Bilirubin Direct Bilirubin AST ALT Alkaline Phosphatase Lactate Dehydrogenase CK-MB (CK-2) CK-MB (CK-2) Rel Index Troponin T C-Reactive Protein Total Protein Albumin LDL Cholesterol Direct HDL Cholesterol TSH Free T4 Acetaminophen JULIA Screen Coronavirus (PCR) 12/24/20 12/24/20 12/24/20 12:30 18:32 Unknown WBC RBC Hgb Hct MCV MCHC RDW Plt Count Lymph % (Auto) [place] % (Auto) [place] # (Auto) Seg Neutrophils % Seg Neutrophils # PT INR APTT D-Dimer Sodium Potassium Chloride Carbon Dioxide BUN Creatinine Glucose POC Glucose 297 H 309 H Hemoglobin A1c Lactic Acid Calcium Ferritin Total Bilirubin Direct Bilirubin AST ALT Alkaline Phosphatase Lactate Dehydrogenase CK-MB (CK-2) CK-MB (CK-2) Rel Index Troponin T C-Reactive Protein Total Protein Albumin LDL Cholesterol Direct HDL Cholesterol TSH Free T4 Acetaminophen JULIA Screen Coronavirus (PCR) Positive A 12/25/20 12/25/20 12/25/20 00:07 07:02 15:30 WBC RBC Hgb Hct MCV MCHC RDW Plt Count Lymph % (Auto) [place] % (Auto) [place] # (Auto) Seg Neutrophils % Seg Neutrophils # PT INR APTT D-Dimer Sodium Potassium Chloride Carbon Dioxide BUN 24 H Creatinine 3.2 H Glucose 227 H POC Glucose 190 H 188 H Hemoglobin A1c Lactic Acid Calcium Ferritin Total Bilirubin Direct Bilirubin AST ALT Alkaline Phosphatase Lactate Dehydrogenase CK-MB (CK-2) CK-MB (CK-2) Rel Index Troponin T C-Reactive Protein Total Protein Albumin LDL Cholesterol Direct HDL Cholesterol TSH Free T4 Acetaminophen JULIA Screen Coronavirus (PCR) 12/25/20 12/25/20 12/26/20 16:20 22:19 06:24 WBC RBC Hgb Hct MCV MCHC RDW Plt Count Lymph % (Auto) [place] % (Auto) [place] # (Auto) Seg Neutrophils % Seg Neutrophils # PT INR APTT D-Dimer Sodium Potassium Chloride Carbon Dioxide BUN Creatinine Glucose POC Glucose 227 H 266 H 224 H Hemoglobin A1c Lactic Acid Calcium Ferritin Total Bilirubin Direct Bilirubin AST ALT Alkaline Phosphatase Lactate Dehydrogenase CK-MB (CK-2) CK-MB (CK-2) Rel Index Troponin T C-Reactive Protein Total Protein Albumin LDL Cholesterol Direct HDL Cholesterol TSH Free T4 Acetaminophen JULIA Screen Coronavirus (PCR) 12/26/20 12/26/20 12/26/20 07:51 12:40 17:34 WBC RBC 2.92 L Hgb 9.4 L Hct 29.6 L MCV 102 H MCHC RDW 25.1 H Plt Count 58 L Lymph % (Auto) [place] % (Auto) [place] # (Auto) Seg Neutrophils % Seg Neutrophils # PT INR APTT D-Dimer Sodium Potassium Chloride Carbon Dioxide BUN Creatinine Glucose POC Glucose 155 H 208 H Hemoglobin A1c Lactic Acid Calcium Ferritin Total Bilirubin Direct Bilirubin AST ALT Alkaline Phosphatase Lactate Dehydrogenase CK-MB (CK-2) CK-MB (CK-2) Rel Index Troponin T C-Reactive Protein Total Protein Albumin LDL Cholesterol Direct HDL Cholesterol TSH Free T4 Acetaminophen JULIA Screen Coronavirus (PCR) 12/26/20 12/26/20 12/26/20 19:48 19:48 19:48 WBC RBC Hgb Hct MCV MCHC RDW Plt Count Lymph % (Auto) [place] % (Auto) [place] # (Auto) Seg Neutrophils % Seg Neutrophils # PT INR APTT D-Dimer 1585.97 H Sodium Potassium Chloride Carbon Dioxide BUN Creatinine Glucose POC Glucose Hemoglobin A1c Lactic Acid Calcium Ferritin 3421.0 H Total Bilirubin Direct Bilirubin AST ALT Alkaline Phosphatase Lactate Dehydrogenase 581 H CK-MB (CK-2) CK-MB (CK-2) Rel Index Troponin T C-Reactive Protein 9.30 H Total Protein Albumin LDL Cholesterol Direct HDL Cholesterol TSH Free T4 Acetaminophen JULIA Screen Coronavirus (PCR) 12/26/20 12/26/20 12/27/20 19:48 23:31 05:55 WBC RBC Hgb Hct MCV MCHC RDW Plt Count Lymph % (Auto) [place] % (Auto) [place] # (Auto) Seg Neutrophils % Seg Neutrophils # PT INR APTT D-Dimer Sodium Potassium 5.3 H D Chloride Carbon Dioxide BUN Creatinine Glucose POC Glucose 253 H 248 H Hemoglobin A1c Lactic Acid Calcium Ferritin Total Bilirubin Direct Bilirubin AST ALT Alkaline Phosphatase Lactate Dehydrogenase CK-MB (CK-2) CK-MB (CK-2) Rel Index Troponin T 0.735 H* C-Reactive Protein Total Protein Albumin LDL Cholesterol Direct HDL Cholesterol TSH Free T4 Acetaminophen JULIA Screen Coronavirus (PCR) 12/27/20 12/27/20 12/27/20 11:54 17:08 21:39 WBC RBC Hgb Hct MCV MCHC RDW Plt Count Lymph % (Auto) [place] % (Auto) [place] # (Auto) Seg Neutrophils % Seg Neutrophils # PT INR APTT D-Dimer Sodium Potassium Chloride Carbon Dioxide BUN Creatinine Glucose POC Glucose 254 H 269 H 249 H Hemoglobin A1c Lactic Acid Calcium Ferritin Total Bilirubin Direct Bilirubin AST ALT Alkaline Phosphatase Lactate Dehydrogenase CK-MB (CK-2) CK-MB (CK-2) Rel Index Troponin T C-Reactive Protein Total Protein Albumin LDL Cholesterol Direct HDL Cholesterol TSH Free T4 Acetaminophen JULIA Screen Coronavirus (PCR) 12/28/20 12/28/20 12/28/20 05:48 05:48 05:48 WBC RBC 2.89 L Hgb 9.3 L Hct 29.6 L MCV 102 H MCHC RDW 24.5 H Plt Count 78 L Lymph % (Auto) [place] % (Auto) 12.1 H [place] # (Auto) 1.0 H Seg Neutrophils % 73.6 H Seg Neutrophils # PT 17.1 H INR 1.34 H APTT D-Dimer Sodium Potassium Chloride 97.9 L Carbon Dioxide BUN 39 H Creatinine 3.5 H Glucose 186 H POC Glucose Hemoglobin A1c Lactic Acid Calcium Ferritin Total Bilirubin Direct Bilirubin AST ALT Alkaline Phosphatase Lactate Dehydrogenase CK-MB (CK-2) CK-MB (CK-2) Rel Index Troponin T C-Reactive Protein Total Protein Albumin LDL Cholesterol Direct HDL Cholesterol TSH Free T4 Acetaminophen JULIA Screen Coronavirus (PCR) 12/28/20 12/28/20 12/28/20 05:51 12:05 15:37 WBC RBC 2.98 L Hgb 9.4 L Hct MCV 107 H MCHC 29 L RDW 25.0 H Plt Count 90 L Lymph % (Auto) [place] % (Auto) [place] # (Auto) Seg Neutrophils % Seg Neutrophils # PT INR APTT D-Dimer Sodium Potassium Chloride Carbon Dioxide BUN Creatinine Glucose POC Glucose 169 H 208 H Hemoglobin A1c Lactic Acid Calcium Ferritin Total Bilirubin Direct Bilirubin AST ALT Alkaline Phosphatase Lactate Dehydrogenase CK-MB (CK-2) CK-MB (CK-2) Rel Index Troponin T C-Reactive Protein Total Protein Albumin LDL Cholesterol Direct HDL Cholesterol TSH Free T4 Acetaminophen JULIA Screen Coronavirus (PCR) 12/28/20 12/28/20 12/28/20 15:37 15:37 16:09 WBC RBC Hgb Hct MCV MCHC RDW Plt Count Lymph % (Auto) [place] % (Auto) [place] # (Auto) Seg Neutrophils % Seg Neutrophils # PT 17.5 H INR 1.38 H APTT D-Dimer Sodium Potassium Chloride Carbon Dioxide BUN Creatinine 3.9 H Glucose POC Glucose 215 H Hemoglobin A1c Lactic Acid Calcium Ferritin Total Bilirubin Direct Bilirubin AST ALT Alkaline Phosphatase Lactate Dehydrogenase CK-MB (CK-2) CK-MB (CK-2) Rel Index Troponin T C-Reactive Protein Total Protein Albumin LDL Cholesterol Direct HDL Cholesterol TSH Free T4 Acetaminophen JULIA Screen Coronavirus (PCR) 12/28/20 12/29/20 12/29/20 21:29 06:36 12:11 WBC RBC Hgb Hct MCV MCHC RDW Plt Count Lymph % (Auto) [place] % (Auto) [place] # (Auto) Seg Neutrophils % Seg Neutrophils # PT INR APTT D-Dimer Sodium Potassium Chloride Carbon Dioxide BUN Creatinine Glucose POC Glucose 251 H 325 H 352 H Hemoglobin A1c Lactic Acid Calcium Ferritin Total Bilirubin Direct Bilirubin AST ALT Alkaline Phosphatase Lactate Dehydrogenase CK-MB (CK-2) CK-MB (CK-2) Rel Index Troponin T C-Reactive Protein Total Protein Albumin LDL Cholesterol Direct HDL Cholesterol TSH Free T4 Acetaminophen JULIA Screen Coronavirus (PCR) 12/29/20 12/29/20 12/30/20 18:32 20:50 01:19 WBC RBC Hgb Hct MCV MCHC RDW Plt Count Lymph % (Auto) [place] % (Auto) [place] # (Auto) Seg Neutrophils % Seg Neutrophils # PT INR APTT D-Dimer Sodium Potassium Chloride Carbon Dioxide BUN Creatinine Glucose POC Glucose 321 H 289 H 258 H Hemoglobin A1c Lactic Acid Calcium Ferritin Total Bilirubin Direct Bilirubin AST ALT Alkaline Phosphatase Lactate Dehydrogenase CK-MB (CK-2) CK-MB (CK-2) Rel Index Troponin T C-Reactive Protein Total Protein Albumin LDL Cholesterol Direct HDL Cholesterol TSH Free T4 Acetaminophen JULIA Screen Coronavirus (PCR) 12/30/20 12/30/20 12/30/20 05:52 12:10 15:01 WBC 15.2 H RBC 2.94 L Hgb 9.2 L Hct 29.3 L MCV 100 H MCHC RDW 24.2 H Plt Count Lymph % (Auto) [place] % (Auto) [place] # (Auto) Seg Neutrophils % Seg Neutrophils # PT INR APTT D-Dimer Sodium Potassium Chloride Carbon Dioxide BUN Creatinine Glucose POC Glucose 228 H 228 H Hemoglobin A1c Lactic Acid Calcium Ferritin Total Bilirubin Direct Bilirubin AST ALT Alkaline Phosphatase Lactate Dehydrogenase CK-MB (CK-2) CK-MB (CK-2) Rel Index Troponin T C-Reactive Protein Total Protein Albumin LDL Cholesterol Direct HDL Cholesterol TSH Free T4 Acetaminophen JULIA Screen Coronavirus (PCR) 12/30/20 12/30/20 12/31/20 15:01 17:47 00:18 WBC RBC Hgb Hct MCV MCHC RDW Plt Count Lymph % (Auto) [place] % (Auto) [place] # (Auto) Seg Neutrophils % Seg Neutrophils # PT INR APTT D-Dimer Sodium 135 L Potassium Chloride 93.3 L Carbon Dioxide BUN 80 H Creatinine 5.5 H Glucose 193 H POC Glucose 198 H 214 H Hemoglobin A1c Lactic Acid Calcium Ferritin Total Bilirubin 1.50 H Direct Bilirubin AST 65 H ALT 133 H Alkaline Phosphatase 268 H Lactate Dehydrogenase CK-MB (CK-2) CK-MB (CK-2) Rel Index Troponin T C-Reactive Protein Total Protein 5.8 L Albumin 2.9 L LDL Cholesterol Direct HDL Cholesterol TSH Free T4 Acetaminophen JULIA Screen Coronavirus (PCR) 12/31/20 12/31/20 12/31/20 06:15 12:20 17:48 WBC RBC Hgb Hct MCV MCHC RDW Plt Count Lymph % (Auto) [place] % (Auto) [place] # (Auto) Seg Neutrophils % Seg Neutrophils # PT INR APTT D-Dimer Sodium Potassium Chloride Carbon Dioxide BUN Creatinine 3.8 H Glucose POC Glucose 197 H 293 H Hemoglobin A1c Lactic Acid Calcium Ferritin Total Bilirubin Direct Bilirubin AST ALT Alkaline Phosphatase Lactate Dehydrogenase CK-MB (CK-2) CK-MB (CK-2) Rel Index Troponin T C-Reactive Protein Total Protein Albumin LDL Cholesterol Direct HDL Cholesterol TSH Free T4 Acetaminophen JULIA Screen Coronavirus (PCR) 01/01/21 01/01/21 01/01/21 00:14 05:18 06:26 WBC 18.6 H RBC 3.09 L Hgb 10.0 L Hct MCV 106 H MCHC RDW 24.7 H Plt Count Lymph % (Auto) [place] % (Auto) [place] # (Auto) Seg Neutrophils % Seg Neutrophils # PT INR APTT D-Dimer Sodium Potassium Chloride Carbon Dioxide BUN Creatinine Glucose POC Glucose 335 H 328 H Hemoglobin A1c Lactic Acid Calcium Ferritin Total Bilirubin Direct Bilirubin AST ALT Alkaline Phosphatase Lactate Dehydrogenase CK-MB (CK-2) CK-MB (CK-2) Rel Index Troponin T C-Reactive Protein Total Protein Albumin LDL Cholesterol Direct HDL Cholesterol TSH Free T4 Acetaminophen JULIA Screen Coronavirus (PCR) 01/01/21 01/01/21 01/01/21 13:26 16:37 23:24 WBC RBC Hgb Hct MCV MCHC RDW Plt Count Lymph % (Auto) [place] % (Auto) [place] # (Auto) Seg Neutrophils % Seg Neutrophils # PT INR APTT D-Dimer Sodium Potassium Chloride Carbon Dioxide BUN Creatinine Glucose POC Glucose 287 H 219 H 292 H Hemoglobin A1c Lactic Acid Calcium Ferritin Total Bilirubin Direct Bilirubin AST ALT Alkaline Phosphatase Lactate Dehydrogenase CK-MB (CK-2) CK-MB (CK-2) Rel Index Troponin T C-Reactive Protein Total Protein Albumin LDL Cholesterol Direct HDL Cholesterol TSH Free T4 Acetaminophen JULIA Screen Coronavirus (PCR) 01/02/21 01/03/21 01/03/21 06:29 01:26 04:57 WBC RBC Hgb Hct MCV MCHC RDW Plt Count Lymph % (Auto) [place] % (Auto) [place] # (Auto) Seg Neutrophils % Seg Neutrophils # PT INR APTT D-Dimer Sodium Potassium 5.4 H Chloride 94.0 L Carbon Dioxide 21 L BUN 67 H Creatinine 4.4 H Glucose 279 H POC Glucose 240 H 274 H Hemoglobin A1c Lactic Acid Calcium Ferritin Total Bilirubin 2.10 H Direct Bilirubin AST 60 H ALT 66 H Alkaline Phosphatase 268 H Lactate Dehydrogenase CK-MB (CK-2) CK-MB (CK-2) Rel Index Troponin T C-Reactive Protein Total Protein 5.3 L Albumin 2.7 L LDL Cholesterol Direct HDL Cholesterol TSH Free T4 Acetaminophen JULIA Screen Coronavirus (PCR) 01/03/21 01/03/21 01/03/21 04:57 04:57 12:37 WBC 19.5 H RBC 3.49 L Hgb Hct MCV 103 H MCHC RDW 26.1 H Plt Count Lymph % (Auto) [place] % (Auto) [place] # (Auto) Seg Neutrophils % Seg Neutrophils # PT INR APTT D-Dimer Sodium Potassium Chloride Carbon Dioxide BUN Creatinine 4.3 H Glucose POC Glucose < 10 L Hemoglobin A1c Lactic Acid Calcium Ferritin Total Bilirubin Direct Bilirubin AST ALT Alkaline Phosphatase Lactate Dehydrogenase CK-MB (CK-2) CK-MB (CK-2) Rel Index Troponin T C-Reactive Protein Total Protein Albumin LDL Cholesterol Direct HDL Cholesterol TSH Free T4 Acetaminophen JULIA Screen Coronavirus (PCR) 01/03/21 14:44 WBC RBC Hgb Hct MCV MCHC RDW Plt Count Lymph % (Auto) [place] % (Auto) [place] # (Auto) Seg Neutrophils % Seg Neutrophils # PT INR APTT D-Dimer Sodium Potassium Chloride Carbon Dioxide BUN Creatinine Glucose POC Glucose < 10 L Hemoglobin A1c Lactic Acid Calcium Ferritin Total Bilirubin Direct Bilirubin AST ALT Alkaline Phosphatase Lactate Dehydrogenase CK-MB (CK-2) CK-MB (CK-2) Rel Index Troponin T C-Reactive Protein Total Protein Albumin LDL Cholesterol Direct HDL Cholesterol TSH Free T4 Acetaminophen JULIA Screen Coronavirus (PCR) Allied health notes reviewed: nursing
--- NOTE | 2021-01-03 15:06 | Death Note ---
Note Date of : 01/03/21 Time of : 14:51 Time Pronounced: 14:51 - Preliminary Cause of (problem) (1) 2019 novel coronavirus disease (COVID-19) Preliminary cause of
--- NOTE | 2021-01-03 15:07 | Event Note ---
Date: 01/03/21 Code denice called. Code run per protocol with CPR and multiple rounds of Epinephrine, bicarb. However she did not survive. She and was pronounced on 01/03/21 at 14:51. Family notified.
--- NOTE | 2021-01-03 15:29 | Discharge Summary ---
Providers - Providers Date of Admission: 12/16/20 13:51 Attending physician: CHALINO NIETO 12/16/20 03:40 Consult to Dietitian/Nutrition [CONS] Routine Physician Instructions: Reason For Exam: Reason for Consult: Diet education 12/16/20 03:48 Consult to Wound/ET Nurse [CONS] Routine Reason For Exam: wound evaluation and treatment, b/l LE 12/16/20 03:49 Consult to Physician [CONS] Routine Comment: Consulting Provider: BRIAN VAZQUEZ Physician Instructions: Reason For Exam: Elevated Liver Enzymes 12/16/20 03:50 Consult to Physician [CONS] Routine Comment: Consulting Provider: VICTORIA VELAZQUEZ Physician Instructions: Reason For Exam: ESRD ON DIALYSIS- WED, ,Wednesday12/16/20 04:48 Consult to Cardiology [CONS] Routine Consulting Provider: CALLIE MCDONOUGH Reason For Exam: Elevated Troponin 12/16/20 09:40 Speech Therapy Evaluation and Treat [CONS] Routine Reason For Exam: Swallowing assessment 12/19/20 14:15 Consult to Physician [CONS] Routine Comment: called office / antonio Consulting Provider: KENY RODRIGUEZ Physician Instructions: Reason For Exam: Possible sepsis 12/20/20 08:59 Consult to Physician [CONS] Routine Comment: Consulting Provider: VAHE CHAPMAN Physician Instructions: Reason For Exam: Altered mental status 12/22/20 08:19 Consult to Dietitian/Nutrition [CONS] Routine Physician Instructions: Assess nutrtn needs, initiate, modify, manage TF Reason For Exam: Reason for Consult: Write/Manage Tube Feeding Reason for Consult: Write/Manage Tube Feeding 12/23/20 07:26 Consult to Physician [CONS] Routine Comment: called dr. moore/ antonio Consulting Provider: LILO MOORE Physician Instructions: Reason For Exam: Thrombocytopenia 12/23/20 08:37 Consult to Physician [CONS] Routine Comment: called office/ antonio Consulting Provider: CHEN WITT Physician Instructions: Reason For Exam: Re-consuklt for bloody streaks in stool 12/24/20 13:51 Consult to Physician [CONS] Routine Comment: Consulting Provider: CRISTÓBAL RODRIGUEZ Physician Instructions: Reason For Exam: evaluate multiple dec on patients 12/25/20 10:46 Speech Therapy Evaluation and Treat [CONS] Routine Reason For Exam: aspiration 12/26/20 13:53 Consult to Physician [CONS] Routine Comment: Consulting Provider: XUAN BYERS Physician Instructions: Reason For Exam: covid positive 12/29/20 16:18 Consult to Physician [CONS] Routine Comment: Consulting Provider: CHEN RODRIGUEZ Physician Instructions: Reason For Exam: PVD 12/30/20 16:29 Consult to Physician [CONS] Routine Comment: Consulting Provider: BRIAN VAZQUEZ Physician Instructions: Reason For Exam: PEG placement 12/31/20 11:24 Consult to Physician [CONS] Routine Comment: Consulting Provider: ZAIN MAHAN Physician Instructions: Reason For Exam: respiratory failure 01/02/21 10:51 Consult to Dietitian/Nutrition [CONS] Routine Physician Instructions: Assess nutrtn needs, initiate, modify, manage TF Reason For Exam: Reason for Consult: Write/Manage Tube Feeding Reason for Consult: Write/Manage Tube Feeding Primary care physician: KIER PLEATER Hospitalization Condition: Fair Disposition: 30 STILL A PATIENT - Discharge Diagnoses (1) 2019 novel coronavirus disease (COVID-19) Status: Acute Exam - Constitutional Vitals: Temp Pulse Resp BP Pulse Ox 98.3 F 78 16 141/53 89 01/03/21 05:00 01/02/21 22:10 01/02/21 21:16 01/03/21 05:49 01/03/21 08:17 Plan Follow up with: PRIMARY CAREMD [Primary Care Provider] - 7 Days
[2021-01-03] MEDS ORDERED: SODIUM CHLORIDE 0.9% 1000 ML IV SOLN ONE (16:08)
--- NOTE | 2021-01-16 14:38 | Death Summary ---
Summary - Providers Date of service: 01/03/21 Consults: 12/16/20 03:40 Consult to Dietitian/Nutrition [CONS] Routine Physician Instructions: Reason For Exam: Reason for Consult: Diet education 12/16/20 03:48 Consult to Wound/ET Nurse [CONS] Routine Reason For Exam: wound evaluation and treatment, b/l LE 12/16/20 03:49 Consult to Physician [CONS] Routine Comment: Consulting Provider: BRIAN VAZQUEZ Physician Instructions: Reason For Exam: Elevated Liver Enzymes 12/16/20 03:50 Consult to Physician [CONS] Routine Comment: Consulting Provider: VICTORIA VELAZQUEZ Physician Instructions: Reason For Exam: ESRD ON DIALYSIS- WED, ,Wednesday12/16/20 04:48 Consult to Cardiology [CONS] Routine Consulting Provider: CALLIE MCDONOUGH Reason For Exam: Elevated Troponin 12/16/20 09:40 Speech Therapy Evaluation and Treat [CONS] Routine Reason For Exam: Swallowing assessment 12/19/20 14:15 Consult to Physician [CONS] Routine Comment: called office / antonio Consulting Provider: KENY RODRIGUEZ Physician Instructions: Reason For Exam: Possible sepsis 12/20/20 08:59 Consult to Physician [CONS] Routine Comment: Consulting Provider: VAHE CHAPMAN Physician Instructions: Reason For Exam: Altered mental status 12/22/20 08:19 Consult to Dietitian/Nutrition [CONS] Routine Physician Instructions: Assess nutrtn needs, initiate, modify, manage TF Reason For Exam: Reason for Consult: Write/Manage Tube Feeding Reason for Consult: Write/Manage Tube Feeding 12/23/20 07:26 Consult to Physician [CONS] Routine Comment: called dr. moore/ antonio Consulting Provider: LILO MOORE Physician Instructions: Reason For Exam: Thrombocytopenia 12/23/20 08:37 Consult to Physician [CONS] Routine Comment: called office/ antonio Consulting Provider: CHEN WITT Physician Instructions: Reason For Exam: Re-consuklt for bloody streaks in stool 12/24/20 13:51 Consult to Physician [CONS] Routine Comment: Consulting Provider: CRISTÓBAL RODRIGUEZ Physician Instructions: Reason For Exam: evaluate multiple dec on patients 12/25/20 10:46 Speech Therapy Evaluation and Treat [CONS] Routine Reason For Exam: aspiration 12/26/20 13:53 Consult to Physician [CONS] Routine Comment: Consulting Provider: XUAN BYERS Physician Instructions: Reason For Exam: covid positive 12/29/20 16:18 Consult to Physician [CONS] Routine Comment: Consulting Provider: CHEN RODRIGUEZ Physician Instructions: Reason For Exam: PVD 12/30/20 16:29 Consult to Physician [CONS] Routine Comment: Consulting Provider: BRIAN VAZQUEZ Physician Instructions: Reason For Exam: PEG placement 12/31/20 11:24 Consult to Physician [CONS] Routine Comment: Consulting Provider: ZAIN MAHAN Physician Instructions: Reason For Exam: respiratory failure 01/02/21 10:51 Consult to Dietitian/Nutrition [CONS] Routine Physician Instructions: Assess nutrtn needs, initiate, modify, manage TF Reason For Exam: Reason for Consult: Write/Manage Tube Feeding Reason for Consult: Write/Manage Tube Feeding Attending: CHALINO NIETO - summary Date of admission: 12/16/20 13:51 Date of : 01/03/21 Procedures/treatments rendered: The patient is a 70 YO female with history significant for Hypertension, Anemia, Arthritis, CAD s/p CABG and ESRD on hemodialysis (MWF) who presented to [facility] ED 12/16 with altered mental status. Patient was recently seen here in this hospital about a week ago with hyperkalemia during which she had emergent dialysis. She has had a COVID-19 vaccination. Work-up in the emergency room showed wbc 18.2, INR of 2.8, K 5.4, BUN 34, creatinine 5.6, Lactic acid of 6.6, elevated liver enzymes with AST 2838 and ALT 1353 and Troponin 0.72. Chest x- ray showed reduced lung volumes with probable bilateral atelectasis/edema. CT scan of the head showed no acute findings. Patient has been admitted with altered mental status, hyperkalemia, lactic acidosis, elevated liver enzymes and elevated troponin. Now she is tested positive for COVID-19: 12/25 Assessment and plan: --Positive COVID-19 infection -Patient tested positive for COVID-19 virus on 12/25 -Initiated on dexamethasone, not a candidate for remdesivir for ESRD -Consult ID and follow recommendation -Droplet/contact isolation -Continue SPO2 monitoring -Supplemental oxygen as needed -Pulmonary hygiene -Prone to sleep -Vitamin C, vitamin D, zinc -Anticoagulation per protocol --Acute hypoxic respiratory failure, likely due to COVID-19 pneumonia and underlying CHF Patient was resting on 2 L nasal cannula but currently placed on 8 L consulted pulmonary critical care, scheduled nebulizer breathing treatment, empiric steroid Wean off O2 as tolerated --Hypotension, now improved BP dropped to around 40s on 12/31 initiated home dose of midodrine Continue to follow clinically --Acute metabolic encephalopathy Possibly secondary to multiple underlying problems including possible sepsis, end-stage renal disease with hyperkalemia and elevated liver enzymes. Will monitor mental status. MRI brain without any acute infarct, neurology consulted and recommended to o btain EEG which is pending Patient remains pleasantly confused, continue supportive care and tube feeding --Sepsis sepsis, POA No clear source of infection yet, completed Cefepime and Vancomycin ID following --Thrombocytopenia may be due to Sepsis. To r/o HIT She did not get any Heparin this admission but got Heparin last admission just few days earlier Obtain HIT test Consulted Hematology, discontinued all heparin and anticoagulation -- ESRD (end stage renal disease) Nephrology consulted for hemodialysis, follow BMP, avoid nephrotoxic agents --Hyperkalemia Possibly secondary to the end-stage renal disease. Patient treated with Kayexalate, insulin/glucose, sodium bicarb and will monitor potassium levels. --Elevated liver enzymes Etiology unclear, likely due to shock liver GI was consulted, liver serologies are negative Continue to trend and medical management --Elevated troponin/NSTEMI type II Possibly secondary to the underlying end-stage renal disease versus dilated cardiomyopathy versus sepsis. However we trend cardiac enzymes and request cardiology evaluation and recommendations. 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 We will monitor Accu-Cheks closely. --Bilateral lower extremity pressure sore ulcer and extensive PVD, unstageable Dr. Odom consulted and status post debridement on 12/27 Vascular recommended endovascular procedure when pt clinically more stable --Elevated JULIA Antidouble-stranded DNA marker is normal Likely patient has underlying auto inflammatory disease Need further outpatient, continue to follow clinically for now --DVT prophylaxis SCD for possible HIT, Eliquis is discontinued by hematology --Full code status Daily clinical course: 12/17/20 Patient with ESRD on hemodialysis presents with altered mental status, acute metabolic encephalopathy. Also has markedly elevated AST and ALT GI consulted. Her LFTs were normal last admission just 5 days ago. 12/18/20 Patient with ESRD on hemodialysis. Rapid response called this morning. She is very lethargic, minimal responsive. Bld glucose 45mg/dl and BP 74/15. She was given 1 amp D50. Blood glucose now 163. BP up to 123/30 but MAP still under 65. Will give 500 ml Normal Saline and transfer to [facility].I discussed with Dr. Velazquez, Nephrology. LFTs improving though still very high. 12/19/20 Patient with ESRD on hemodialysis. Rapid response called yesterday for hypoglycemia and hypotension, so transferred to [facility]. Blood glucose normalized. BP improved. 12/20/20 Patient with ESRD on hemodialysis. Presented with altered mental status. Was transferred to [facility] on 12/18/20. Still has altered mental status, very lethargic. MRI ordered. Neurology consulted. 12/21/20 Patient with ESRD on hemodialysis. Presented with altered mental status. Was transferred to [facility] on 12/18/20. Still has altered mental status, very lethargic. MRI ordered. EEG ordered. Patient ws evaluated by Neurology. Will talk to family. 12/22/20 Patient with ESRD on hemodialysis, diabetes,hypertension. She presented with altered mental status. She has been diagnosed with sepsis(POA), hypoglycemia, hypotension, thrombocytopenia. Was transferred to [facility] on 12/18/20 because of episode of hypoglycemia and hypotension. . Still has altered mental status, very lethargic. Neurology was consulted MRI ordered. EEG ordered. I spoke to daughter Michelle Kruger yesterday and gave update. For thrombocytopenia, will obtain HIT. Consult Hematology For blood in stool, will re-consult GI. Check H/H serially Elevated LFTs likely due to shock liver, improving 12/23/20 Patient with ESRD on hemodialysis, diabetes,hypertension. She presented with altered mental status. She has been diagnosed with sepsis(POA), hypoglycemia, hypotension, thrombocytopenia. Was transferred to [facility] on 12/18/20 because of episode of hypoglycemia and hypotension. . Still has altered mental status, very lethargic. Neurology was consulted MRI ordered. EEG ordered. I spoke to russell Kruger few days ago and gave update. Patient has thrombocytopenia, worsening 54 today. Consult Hematology. HIT ordered For blood in stool, will re-consult GI. Check H/H serially Elevated LFTs likely due to shock liver, improving. Was initially evaluated by GI patient stable to transfer back to [facility] since BP stable. 12/24/20; MRI brain yesterday showed extensive chronic changes but no acute infarct. Patient remains confused on TF. speech recommended pureed diet on prior assessment- will initiate. cont to follow 12/25/20: Ordered for Covid test, patient remains very lethargic, unable to tolerate p.o. we will continue on tube feeding. Continue supportive care. Evaluated by Dr. Odom at the bedside for bilateral lower extremity wound. Plan for debridement, continue to follow 12/26/20: Patient tested positive for COVID-19. Transfer to [facility]/Covid unit. Will place on Covid protocol, ID consult, obtain chest x-ray, initiate on dexamethasone. Patient daughter was notified about patient's positive Covid status. Continue to monitor clinically, patient remains confused. 12/27/20: Status post debridement by Dr. Odom today of bilateral lower extremities wound. MRI of lower extremities ordered. Her arterial duplex demonstrates monophasic waveforms throughout bilateral lower extremities, suggesting aortoiliac occlusive disease. She is unlikely to heal her wounds without an angiogram and improvement of her arterial flow in bilateral lower extremities. Vascular surgery consulted, patient will likely require angiogram. Follow inflammatory markers for COVID-19 pneumonia, not a candidate for remdesivir. Continue dexamethasone for now. Unable to start any anticoagulation due to thrombocytopenia. 12/28/20; plan for CT abdomen pelvis with contrast for extensive peripheral vascular disease. Vascular surgery following for possible angiogram. Continue to follow inflammatory markers, continue dexamethasone. Continue tube feeding diet. Speech evaluated the patient and recommended to hold oral diet. Continue to follow. 12/29/20; CT abdomen pelvis tomorrow as patient will need hemodialysis within 24 hours. Remains on tube feeding, wait for repeat speech eval. Continue supportive care. 12/30/20; patient failed swallow eval with speech. had a prolong discussion with daughter about further care and she wants to continue everything possible to be done. I explained patient with bedbound status with multiple pressure sore ulcers with poor healing, ESRD on HD, CHFrEF, extensive PVD, advanced dementia now failed speech eval and nonverbal. patient with all underlying conditions has very poor chance of good quality of life and her condition may continue to deteriorate even after appropriate treatment has given. Daughter stated she understands and still wants to proceed with PEg tube for nutrition and any vascular intervention if needed. I placed consult for GI for PEG placement and updated vascular about daughter's wish. 12/31/20: Patient noted to have more oxygen requirement since this morning, also had significantly low blood pressure SBP 140s. Patient had dialysis yesterday. Will order a stat chest x-ray, will initiate patient home medicine of midodrine. Discussed with daughter thoroughly about change in condition and is she is still wants to continue full CODE STATUS. Patient currently on 8 L nasal cannula, consulted pulmonary critical care. 01/01/21: Patient remains on 8 L nasal cannula O2, BP much stable today. Plan for dialysis. Again discussed with the daughter and patient and brother in length about CODE STATUS, patient care management. Family still in agreement for maintaining full CODE STATUS. Continue supportive care, monitor inflammatory markers and wean off O2 as tolerated. Chronically debilitated patient with multiple medical problems and comorbidities now positive for covid with increasing O2 demand, prognosis is extremely poor. 01/02/21 Patient with Covid-19 infection, acute resp failure. She is now on Oxygen at 10 l/min. She has multiple comorbidities. 01/03/21 patient with Covid-19 infection with acute resp failure. She is worsening, put on high flow Oxygen by NE early this morning. She has multiple comorbidities. Not on anticoagulation because of recent thrombocytopenia Hyperkalemia with Potassium 5.4. Dialysis today In afternoon code blue called because no pulse, asystole. Code run per protocol with CPR and multiple rounds of Epinephrine, bicarb. However she did not survive. She and was pronounced on 01/03/21 at 14:51. Family notified. Main cause of : Covid-19 pneumonia. - Final diagnosis (1) 2019 novel coronavirus disease (COVID-19) Note: Final diagnosis: (2) Diabetes mellitus Note: Final diagnosis: (3) ESRD (end stage renal disease) Note: Final diagnosis: (4) Hyperkalemia Note: Final diagnosis: (5) Hypertension Note: Final diagnosis: (6) Pressure ulcer of both heels, unstageable Note: Final diagnosis: (7) Acute respiratory failure due to COVID-19 Note: Final diagnosis: (8) Toxic metabolic encephalopathy Note: Final diagnosis: (9) Sepsis Note: Final diagnosis: (10) Thrombocytopenia Note: Final diagnosis:
== END 2021-01-03 20:13 | DRG 853 ==
LOC: ED 00:32 → 4A 03:09 → OBSVTOIN 13:51 → CC1 12-18 09:23 → IMCU 12-18 12:09 → 4A 12-23 21:56 → 3A 12-25 18:32
PROVIDERS: ADMIT Internal Medicine Geriatric Medicine; ATTEND Internal Medicine
PROC: 5A1D70Z Performance of Urinary Filtration, Intermittent, Less than 6 Hours Per Day (ICD-10-PCS; 2020-12-16)
PROC: 5A1D70Z Performance of Urinary Filtration, Intermittent, Less than 6 Hours Per Day (ICD-10-PCS; 2020-12-18)
PROC: 5A1D70Z Performance of Urinary Filtration, Intermittent, Less than 6 Hours Per Day (ICD-10-PCS; 2020-12-20)
PROC: 5A1D70Z Performance of Urinary Filtration, Intermittent, Less than 6 Hours Per Day (ICD-10-PCS; 2020-12-23)
PROC: 5A1D70Z Performance of Urinary Filtration, Intermittent, Less than 6 Hours Per Day (ICD-10-PCS; 2020-12-25)
PROC: 0LBP0ZZ Excision of Left Lower Leg Tendon, Open Approach (ICD-10-PCS; principal; 2020-12-27)
PROC: 0LBN0ZZ Excision of Right Lower Leg Tendon, Open Approach (ICD-10-PCS; 2020-12-27)
PROC: 0QBM0ZZ Excision of Left Tarsal, Open Approach (ICD-10-PCS; 2020-12-27)
PROC: 0QBL0ZZ Excision of Right Tarsal, Open Approach (ICD-10-PCS; 2020-12-27)
PROC: 5A1D70Z Performance of Urinary Filtration, Intermittent, Less than 6 Hours Per Day (ICD-10-PCS; 2020-12-27)
PROC: 5A1D70Z Performance of Urinary Filtration, Intermittent, Less than 6 Hours Per Day (ICD-10-PCS; 2020-12-30)
PROC: 5A1D70Z Performance of Urinary Filtration, Intermittent, Less than 6 Hours Per Day (ICD-10-PCS; 2021-01-01)
DX: A41.9 Sepsis, unspecified organism (principal); L89.624 Pressure ulcer of left heel, stage 4; L89.614 Pressure ulcer of right heel, stage 4; N18.6 End stage renal disease; G93.41 Metabolic encephalopathy; K72.00 Acute and subacute hepatic failure without coma; U07.1 COVID-19; I21.A1 Myocardial infarction type 2; J12.82 Pneumonia due to coronavirus disease 2019; E87.2 Acidosis; I12.0 Hypertensive chronic kidney disease with stage 5 chronic kidney disease or end stage renal disease; L97.829 Non-pressure chronic ulcer of other part of left lower leg with unspecified severity; L97.819 Non-pressure chronic ulcer of other part of right lower leg with unspecified severity; R64 Cachexia; E11.52 Type 2 diabetes mellitus with diabetic peripheral angiopathy with gangrene; I42.0 Dilated cardiomyopathy; D68.8 Other specified coagulation defects; E11.649 Type 2 diabetes mellitus with hypoglycemia without coma; M19.90 Unspecified osteoarthritis, unspecified site; D64.9 Anemia, unspecified; D69.6 Thrombocytopenia, unspecified; I48.91 Unspecified atrial fibrillation; D63.1 Anemia in chronic kidney disease; E87.5 Hyperkalemia; R74.01 Elevation of levels of liver transaminase levels; E11.22 Type 2 diabetes mellitus with diabetic chronic kidney disease; Z79.899 Other long term (current) drug therapy; Z79.4 Long term (current) use of insulin; I25.2 Old myocardial infarction; T50.995A Adverse effect of other drugs, medicaments and biological substances, initial encounter; Y92.89 Other specified places as the place of occurrence of the external cause; Z68.24 Body mass index [BMI] 24.0-24.9, adult
CPT/HCPCS: 36415; 70450; 70551; 71045; 73721; 74018; 75635; 76705; 80048; 80053; 80061; 80074; 80076; 80202; 80320; 82140; 82270; 82550; 82553; 82565; 82728; 82805; 82962; 83036; 83615; 83735; 84132; 84145; 84439; 84443; 84484; 85014; 85018; 85025; 85027; 85379; 85610; 85652; 85670; 85730; 86022; 86038; 86140; 86225; 87040; 93005; 93306; 93925; 94760; 95819; 96365; 96367; G0378; C9113; G0480; J0456; J0692; J0696; J0885; J1644; J1815; J2270; J3370; J7030; J7050; J8540; Q9967; U0003